=== PATIENT | female | born 1945 | race Caucasian/White ===

== ENCOUNTER → 2017-07-13 09:13 | Outpatient (CLI) | payer MEDICARE, MEDICAID, SELFPAY ==
--- NOTE | 2017-07-13 09:17 | CDU_ITS ---
Reason For Study: right carotid bruit Rt. Velocities/BP Lt. Velocities/BP Prox CCA 116/37.7 cm/sec. Prox CCA 110/33.0 cm/sec. Mid CCA 101/41.6 cm/sec. Mid CCA 84.9/27.5 cm/sec. Dist CCA 89.6/34.6 cm/sec. Dist CCA 96.6/33.8 cm/sec. Prox ICA 49.2/21.1 cm/sec. Prox ICA 95.1/36.1 cm/sec. Mid ICA 81.5/42.8 cm/sec. Mid ICA 95.1/41.6 cm/sec. Dist ICA 183/57.6 cm/sec. Dist ICA 150/64.7 cm/sec. Rt. ICA/CCA = 1.8. Lt. ICA/CCA = 1.8. Prox ECA 123/26.7 cm/sec. Prox ECA 132/29.1 cm/sec. Rt. Vert. 55.4/19.3 cm/sec. Lt. Vert. 58.9/26.7 cm/sec. Right Extracranial There is intimal thickening but no significant atherosclerotic plaque noted in the right common carotid artery. There is homogeneous, smooth atherosclerotic plaque noted in the right internal carotid artery. The right internal carotid artery is very tortuous. There is homogeneous, smooth atherosclerotic plaque noted in the right external carotid artery. Antegrade flow is noted in the right vertebral artery. Left Extracranial There is intimal thickening but no significant atherosclerotic plaque noted in the left common carotid artery. There is intimal thickening but no significant atherosclerotic plaque noted in the left internal carotid artery. The left internal carotid artery is very tortuous. There is intimal thickening but no significant atherosclerotic plaque noted in the left external carotid artery. Antegrade flow is noted in the left vertebral artery. Procedure Carotid Duplex 14333. The exam was diagnostic. Exam performed in department. Interpretation Summary Moderate (50-69%) stenosis right extracranial internal carotid. No significant atherosclerotic plaque or stenosis noted in the left internal carotid artery. Flow within the vertebral arteries is antegrade bilaterally. Ordering Physician: Octavia Nichols Performed By: Chilango Caballero RVT
== END ==
PROVIDERS: Family Provider Internal Medicine; PCP Internal Medicine; Visit Provider Internal Medicine
DX: R09.89 Other specified symptoms and signs involving the circulatory and respiratory systems (principal)
CPT/HCPCS: 93880

== ENCOUNTER → 2017-07-22 08:50 | Outpatient (CLI) | payer MEDICARE, MEDICAID, SELFPAY ==
--- NOTE | 2017-07-22 08:52 | ECHOD_ITS ---
Reason For Study: Murmur Procedure This was a 2D Doppler, Color Flow transthoracic echocardiogram. Exam performed in department. Left Ventricle Moderate assymetric septal hypertrophy. The estimated ejection fraction is 65 %. Stage 1 diastolic dysfunction. No regional wall motion abnormalities noted. Right Ventricle Normal size and thickness. Normal systolic function. Atria Normal left atrium. Normal right atrium. Normal atrial septum. Mitral Valve The mitral valve is structurally normal. No prolapse or stenosis seen. Tricuspid Valve Normal tricuspid valve. Trivial tricuspid valve insufficiency. Right ventricular systolic pressure estimated to be 35 mmHg. Aortic Valve Trisinus/trileaflet aortic valve. Mild diffuse aortic valve thickening. Mild aortic stenosis. Trivial aortic valve insufficiency. Pulmonic Valve Normal pulmonic valve. Great Vessels Normal aortic root. Normal arch. Normal inferior vena cava. Inferior vena cava collapse with sniff. Pericardium/Pleural No pericardial effusion. MMode/2D Measurements & Calculations LVIDd: 3.0 cm IVSd: 1.4 cm LVOT diam: 2.1 cm LVIDs: 1.8 cm LVPWd: 1.2 cm LVOT area: 3.6 cm2 RVDd: 3.2 cm FS: 40.8 % Ao root diam: 2.7 cm LAV(MOD-bp): 45.1 ml LA A4 area: 16.9 cm2 LA dimension: 4.2 cm LAV(MOD-bp) Indexed: 25.6 ml/m2 LAV(MOD-sp2): 43.8 ml LAV(MOD-sp4): 46.8 ml RA A4 area: 10.9 cm2 Doppler Measurements & Calculations MV E max ambrose: 57.8 cm/sec Lat Peak E' Ambrose: 6.4 cm/sec Med Peak E' Ambrose: 4.6 cm/sec MV A max ambrose: 89.1 cm/sec E/E' lat: 9.0 E/E' med: 12.4 MV E/A: 0.65 Ao V2 max: 211.9 cm/sec LV V1 max: 107.5 cm/sec SV(LVOT): 92.5 ml Ao max P.1 mmHg LV V1 max P.6 mmHg Ao V2 mean: 142.0 cm/sec LV V1 mean P.5 mmHg Ao mean P.0 mmHg LV V1 mean: 75.0 cm/sec Ao V2 VTI: 43.0 cm LV V1 VTI: 25.6 cm LEON(I,D): 2.1 cm2 LEON(V,D): 1.8 cm2 PA V2 max: 100.9 cm/sec TR max ambrose: 271.7 cm/sec TR max P.5 mmHg Interpretation Summary The estimated ejection fraction is 65 %. Stage 1 diastolic dysfunction. Right ventricular systolic pressure estimated to be 35 mmHg. Mild aortic stenosis. Compared to echo report dated 02/01/2012, no appreciable changes noted. Ordering Physician: Octavia Nichols Referring Physician: Octavia Nichols Performed By: Leslee Schaffer RDCS
== END ==
PROVIDERS: Family Provider Internal Medicine; PCP Internal Medicine; Visit Provider Internal Medicine
DX: R01.1 Cardiac murmur, unspecified (principal)
CPT/HCPCS: 93306

== ENCOUNTER 2017-07-28 10:48 | Emergency (ER) | payer MEDICARE, MEDICAID, SELFPAY ==
[2017-07-28 10:49] VITALS: BP 161/110; PULSE 64; RESP 22; TEMP 36.7; O2SAT 99; BMI 32.5
--- NOTE | 2017-07-28 11:08 | CT_ITS ---
STUDY: CT BRAIN WITHOUT CONTRAST REASON FOR EXAM: Female, 72 years old. Headaches. Choking episode. RADIATION DOSAGE (If Supplied By Facility): CTDIvol = ( 44.99 ) mGy, DLP = ( 779.24 ) mGycm TECHNIQUE: Transaxial CT imaging of the brain was performed without administration of intravenous contrast material. Individualized dose optimization techniques were used for this CT. COMPARISON: Comparison is made with prior study dated January 03, 2016. FINDINGS: Normal soft tissue structures. Normal calvarium. There is mild cerebral atrophy with widening of the extra-axial spaces and ventricular dilatation. There are areas of decreased attenuation within the white matter tracts of the supratentorial brain, consistent with microvascular disease changes. Normal basal ganglia and thalami. Normal brainstem. Normal cerebellum. There is no intracranial hemorrhage. There are no findings of an acute ischemic infarction. Normal visualized paranasal sinuses. CT/Brain/Head without Contrast IMPRESSION: Chronic involutional changes of the brain. Electronically Signed: Suleman Chan MD at 11:36 EDT Tel [phone], Service support ,
--- NOTE | 2017-07-28 11:09 | EKG12_ITS ---
Test Reason : NUMBNESS Blood Pressure : / mmHG Vent. Rate : 052 BPM Atrial Rate : 052 BPM P-R Int : 166 ms QRS Dur : 100 ms QT Int : 438 ms P-R-T Axes : 030 -09 028 degrees QTc Int : 407 ms Sinus bradycardia Otherwise normal ECG Confirmed by CONCEPCION TINOCO ([id number]), senior editor RL MELO ([id number]) on 08/02/2017 2:06:31 PM Referred By: Octavia Nichols Confirmed By:CONCEPCION TINOCO
[2017-07-28 11:11] VITALS: BP 165/87; PULSE 67; RESP 25; O2SAT 95
[2017-07-28 11:16] LABS: Absolute Lymphocyte Count 1.03 X10^3/ul (0.83-4.51); Absolute Neutrophil Count 3.9 X10^3/uL (2.0-7.7); Basophil# 0.01 X10^3/uL; Basophil% 0.2 % (0-1); Bedside Glucose 109 mg/dL (70-110); Eosinophil# 0.18 X10^3/uL; Eosinophils% 3.2 % (0-5); Hemoglobin 12.3 g/dl (12.0-15.0); Lymphocyte # 1.03 X10^3/ul (4.0); Lymphocyte % 18.4 % (19-41); Mean Corp Hgb Conc 31.5 g/gl (32-36); Mean Corpuscular Hgb 25.1 pg (27.0-32.0); Mean Corpuscular Volume 79.6 fL (81-99); Mean Platelet Vol. 9.3 fl (6.2-12.0); Monocyte# 0.46 X10^3/uL; Monocyte% 8.2 % (0-10); Neutrophil % 69.8 % (47-70); POSITIVE COUNT NO; POSITIVE DIFFERENTIAL NO; POSITIVE MORPHOLOGY NO; Platelet Count 301 K/mm3 (150-450); RBC Distribution Width CV 14.2 % (11.6-14.6); RBC Distribution Width SD 40.7 fl (35.1-43.9); White Blood Count 5.6 K/mm3 (4.4-11.0)
[2017-07-28 11:24] LABS: Anion Gap 8 (5-15); BUN 19 mg/dL (7-18); BUN/Creat Ratio 32.6 RATIO (10-20); Calcium,Total 9.3 mg/dL (8.5-10.1); Chloride 103 mmol/L (98-107); Creatinine, Serum 0.58 mg/dL (0.55-1.02); EST Glomerular Filtration Rate 108 mL/min (>60); Est Glom Filt Rate - Afr Amer 131 mL/min (>60); Estimated Creatinine Clearance 38.94 ml/min; Glucose 106 mg/dL (74-106); Potassium 4.2 mmol/L (3.5-5.1); Sodium Level 141 mmol/L (136-145)
[2017-07-28] MEDS: Acetaminophen 500 MG Tablet 1000 MG PO (11:44)
[2017-07-28] MEDS: Ondansetron ODT 4 MG Tablet PO (11:44)
[2017-07-28] MEDS: 0.9% Normal Saline 1,000 ML 150 ML IV (11:45)
[2017-07-28 11:54] LABS: Bacteria 0 SEEN /hpf (None Seen); Mucous, Urine 0 SEEN /hpf (<or=2+); Red Blood Cells-Urine 0 SEEN /hpf (0-5)
[2017-07-28 11:55] LABS: Color, Urine Yellow (Yellow); Glucose, Dipstick Normal (Normal); Ketone-Dipstick Negative (Negative); Leukocyte Esterase-Dipstick 25 /ul (Negative); Nitrite-Dipstick Negative (Negative); Occult Blood-Urine Negative /ul (Negative); Protein-Dipstick Negative (Negative); Urine Bilirubin Dipstick Negative (Negative); Urine Clarity Clear (Clear); Urine Urobilinogen Normal (Normal)
[2017-07-28 12:01] VITALS: BP 154/82; PULSE 77; RESP 15; O2SAT 97
[2017-07-28 12:02] LABS: Squamous Epithelial Cells - UA 0-5 SEEN /hpf (5-10); White Blood Cells 0-5 SEEN /hpf (0-5)
--- NOTE | 2017-07-28 12:14 | ED.VISSUMM ---
- ER Visit Summary Date of Service: 07/28/17 Chief Complaint: Problems with vision History of Present Illness: The patient is a [address] Nichols and Dr. Grimm. Patient reports that she was urinating today when she began choking. She had her dentures and and when she removed these she vomited multiple times. She reports that immediately thereafter she had vision from her right eye that appeared like she was looking through a crystal. This lasted approximately 30-45 minutes. She has a headache that began the same time as well. As a pressure on the right side of her forehead is 7 out of 10 severity. She denies any numbness, weakness, aphasia, slurred speech, vertigo, or other complaints. Physical Examination: Vitals: Stable. Afebrile. Neurological: Cranial nerves II through XII are intact. 5 out of 5 strength throughout. Normal sensation to light touch throughout. Normal gnzevm-wtgn-yfvthg and jwnq-xaah-[id number] bilaterally. Normal gait. General: A&O x 3. NAD. Cardiovascular exam: Regular rate and rhythm, no murmur, rub or gallop. Respiratory exam: Clear to auscultation bilaterally. No wheezes or stridor. Abdominal exam: Soft, nontender, nondistended, normal bowel sounds. No peritoneal signs. Extremity: No clubbing, cyanosis, or edema. Test Results: CT brain shows chronic changes. EKG sinus bradycardia 52 with no acute changes. Is unchanged from 2016. UA is negative. Chem-7 is more for BUN of 19. CBC is marked for lymphocytes of 18. Emergency Department Course and Treatment: Patient was treated Zofran p.o. She is resting comfortably. Treatment Plan: Patient was discussed with Dr. Oleary. He has that should she be sent over to the [place] [facility]. She will be discharged to there. Disposition: To home in improved and stable condition. Impression: 1. Transient visual changes. This note was generated with [employer] dictation software. It may contain incorrect words, spelling, and punctuation that were not noted in review of the chart prior to signing ED Disposition - Plan for ED Patient: Disposition: Home or Assisted Living Chief Complaint: Numb/Ting Instructions: ED Blurred Vision Referrals: Mark Oleary MD [STAFF PHYSICIAN] - 07/28/17
[2017-07-28 12:30] VITALS: BP 157/82; PULSE 65; RESP 14; O2SAT 95
== END 2017-07-28 12:31 | disposition home or self-care (01) ==
PROVIDERS: Emergency Provider Emergency Medicine; Family Provider Internal Medicine; PCP Internal Medicine
DX: H53.8 Other visual disturbances (principal); R51 Headache; R00.1 Bradycardia, unspecified; E03.9 Hypothyroidism, unspecified; Z79.899 Other long term (current) drug therapy; F41.9 Anxiety disorder, unspecified; F31.9 Bipolar disorder, unspecified; Z79.82 Long term (current) use of aspirin
CPT/HCPCS: 70450; 80048; 81001; 82962; 85025; 93005; 96360; 99285; J7030; A4216

== ENCOUNTER → 2017-08-27 14:50 | Outpatient (CLI) | payer MEDICARE, MEDICAID, SELFPAY ==
--- NOTE | 2017-08-27 14:44 | RAD_ITS ---
XR Chest 2 Views INDICATION: cough COMPARISON: None FINDINGS: Heart size and pulmonary vascularity are within normal limits. The lungs are clear without evidence of airspace consolidation or pleural effusion. The osseous structures are grossly unremarkable. RAD/Chest PA and Lateral IMPRESSION: No radiographic evidence of acute intrathoracic disease. at 1547 Reported and signed by: Katie Hopkins MD Electronically Signed: Katie Hopkins MD at 15:45 EDT Tel , Service support ,
== END ==
PROVIDERS: Family Provider Internal Medicine; PCP Internal Medicine; Visit Provider Internal Medicine
DX: R05 Cough (principal)
CPT/HCPCS: 71046

== ENCOUNTER 2017-11-21 11:09 | Emergency (ER) | payer MEDICARE, MEDICAID, SELFPAY ==
[2017-11-21 11:10] VITALS: BP 159/84; PULSE 82; RESP 15; TEMP 36.3; O2SAT 95; BMI 31.0
[2017-11-21 11:20] VITALS: BP 142/79; PULSE 78; RESP 26; O2SAT 95
[2017-11-21 11:21] VITALS: O2SAT 94
--- NOTE | 2017-11-21 11:21 | CT_ITS ---
STUDY: CT BRAIN WITHOUT CONTRAST REASON FOR EXAM: Female, 72 years old. Frequent falls. Dizzy. RADIATION DOSAGE (If Supplied By Facility): CTDIvol = ( 44.99 ) mGy, DLP = ( 745.49 ) mGycm TECHNIQUE: Transaxial CT imaging of the brain was performed without administration of intravenous contrast material. Individualized dose optimization techniques were used for this CT. COMPARISON: July 28, 2017 FINDINGS: Normal soft tissue structures. Normal calvarium. There is mild cerebral atrophy with widening of the extra-axial spaces and ventricular dilatation. There are areas of decreased attenuation within the white matter tracts of the supratentorial brain, consistent with microvascular disease changes. Normal basal ganglia and thalami. Normal brainstem. Normal cerebellum. There is no intracranial hemorrhage. There are no findings of an acute ischemic infarction. Normal visualized paranasal sinuses. CT/Brain/Head without Contrast IMPRESSION: Chronic involutional changes of the brain. Small vessel ischemia. No acute intracranial process. Electronically Signed: Trish Moser MD at 11:59 EDT Tel , Service support ,
--- NOTE | 2017-11-21 11:22 | CT_ITS ---
STUDY: CT CERVICAL SPINE WITHOUT CONTRAST REASON FOR EXAM: Female, 72 years old. Frequent falls. RADIATION DOSAGE (If Supplied By Facility): CTDIvol = ( 23.69 ) mGy, DLP = ( 456.98 ) mGycm TECHNIQUE: High resolution transaxial imaging was performed without contrast material. Sagittal and coronal images were reconstructed. Individualized dose optimization techniques were used for this CT. COMPARISON: None FINDINGS: Normal craniovertebral junction. There are degenerative changes of the anterior atlantoaxial articulation. Normal odontoid process. Normal cervical lordosis. The vertebral body heights are preserved. There is multilevel degenerative disc disease and facet hypertrophy. C2-3: There is mild anterospondylolisthesis of C2 on C3 by 1.7 mm. There is degenerative disc disease and facet hypertrophy causing narrowing of the left intervertebral neuroforamina. C3-4: There is degenerative disc disease. Normal central canal and intervertebral neuroforamina. C4-5: There is degenerative disc disease. Normal central canal and intervertebral neuroforamina. C5-6: There is a posterior disc osteophyte and facet hypertrophy causing stenosis of the central canal and bilateral narrowing of the intervertebral neuroforamina. C6-7: There is degenerative disc disease. Normal central canal and intervertebral neuroforamina. C7-T1: Normal endplates. Normal disc height and morphology. Normal central canal and intervertebral neuroforamina. There are surgical clips within the anterior neck. CT/Spine Cervical without Contras IMPRESSION: Multilevel degenerative changes, as described above. Electronically Signed: Trish Moser MD at 11:57 EDT Tel , Service support ,
--- NOTE | 2017-11-21 11:25 | ED.VISSUMM ---
- ER Visit Summary Date of Service: 11/21/17 Chief Complaint: Fall History of Present Illness: The patient is a 72 F who states that she suffered a fall on November 16. She fell backwards. She had neck pain since that time that was improving with ibuprofen. She was riding in a car last night states the jarring motion from the car has made her neck pain worse. She also had another fall today where she fell forward. She has an abrasion on her left hand from this fall. He reports problems with her balance. He stated it is almost as if her mind knows where she wants to move to but her body does not keep up with the same speed. Patient denies any syncopal episodes or palpitations that led to falls. Physical Examination: Vital signs significant for blood pressure 159/84, otherwise unremarkable. Patient sitting upright in bed no acute distress. Head neck examination reveals no obvious external sign of trauma. She has cervical paraspinal tenderness diffusely. Heart is regular rate and rhythm. Lung sounds are clear. Abdomen is soft nontender. Extremity examination reveals an abrasion to the palm the left hand. It is approximate 1 cm circular lesion. There is no bony tenderness to palpation. Lower external examination reveals no focal tenderness or abrasions. Neuro exam reveals no focal deficits. Test Results: CT head is unremarkable with no acute process. CT C-spine shows multilevel degenerative changes. Emergency Department Course and Treatment: On repeat examination patient is resting comfortable. Hand wound will be cleansed and dressed. She is encouraged to continue ibuprofen and warm compresses to help with her spasm. Treatment Plan: [] Disposition: Discharge Impression: Fall with neck strain This note was generated with [employer] dictation software. It may contain incorrect words, spelling, and punctuation that were not noted in review of the chart prior to signing ED Disposition - Plan for ED Patient: Chief Complaint: Fall Referrals: Octavia Nichols DO [Primary Care Provider] -
--- NOTE | 2017-11-21 12:22 | ED.DEP ---
ED Disposition - Plan for ED Patient: Disposition: Home or Assisted Living Chief Complaint: Fall Instructions: ED Sprain Strain Neck Referrals: Octavia Nichols DO [Primary Care Provider] - 1 Week
[2017-11-21 12:43] VITALS: BP 129/64; PULSE 82; RESP 16; O2SAT 91
[2017-11-21 12:50] LABS: Mucous, Urine 0 SEEN /hpf (<or=2+); Red Blood Cells-Urine 0 SEEN /hpf (0-5)
[2017-11-21 13:14] LABS: Color, Urine Yellow (Yellow); Glucose, Dipstick Normal (Normal); Ketone-Dipstick Negative (Negative); Leukocyte Esterase-Dipstick 500 /ul (Negative); Nitrite-Dipstick Negative (Negative); Occult Blood-Urine Negative /ul (Negative); Protein-Dipstick 15 mg/dl (Negative); Urine Bilirubin Dipstick Negative (Negative); Urine Clarity Clear (Clear); Urine Urobilinogen Normal (Normal); Urine pH 6.5 (5.0 - 8.0)
[2017-11-21 13:20] LABS: Bacteria RARE /hpf (None Seen); Squamous Epithelial Cells - UA 0-5 SEEN /hpf (5-10); White Blood Cells 0-5 SEEN /hpf (0-5)
== END 2017-11-21 13:24 | disposition home or self-care (01) ==
PROVIDERS: Emergency Provider Emergency Medicine; Family Provider Internal Medicine; PCP Internal Medicine
DX: S16.1XXA Strain of muscle, fascia and tendon at neck level, initial encounter (principal); W19.XXXA Unspecified fall, initial encounter; Y93.9 Activity, unspecified; Y92.89 Other specified places as the place of occurrence of the external cause; Y99.9 Unspecified external cause status; E11.9 Type 2 diabetes mellitus without complications; I10 Essential (primary) hypertension; E78.00 Pure hypercholesterolemia, unspecified; K21.9 Gastro-esophageal reflux disease without esophagitis; F41.9 Anxiety disorder, unspecified; F32.9 Major depressive disorder, single episode, unspecified; Z79.899 Other long term (current) drug therapy
CPT/HCPCS: 70450; 72125; 81001; 87086; 87088; 99282

== ENCOUNTER → 2017-12-10 13:31 | Outpatient (CLI) | payer MEDICARE, MEDICAID, SELFPAY ==
--- NOTE | 2017-12-10 13:37 | BI_ITS ---
MAMMOGRAPHY - BILATERAL SCREENING REASON FOR EXAM: Female, 72 years old. Routine annual screening examination. Right breast lumps PERTINENT HISTORY: Non-contributory. TECHNIQUE: Digital examination. Mediolateral oblique (MLO) and craniocaudad (CC) views of both breasts were obtained along with 3D tomosynthesis. CAD: CAD was performed on this study. COMPARISON: 01/05/2017 FINDINGS: Breast Composition: There are scattered areas of fibroglandular density. There are no dominant masses or suspicious calcifications. Specifically, there are no nodules identified to correspond with patient's palpable lumps. No other significant abnormalities are identified. BI/DIAG MAMM W/CAD, BILAT IMPRESSION: Negative screening mammogram. ASSESSMENT CATEGORY: BIRADS Category 2: Benign. A letter regarding these results will be sent to the patient by the facility within 30 days. FOLLOW UP RECOMMENDATION: Yearly follow up mammogram recommended. (A) Approximately 10% of breast cancers are not detected by mammography. A normal mammogram should not delay biopsy of a clinically suspicious abnormality. [id number] Electronically Signed: Kamar Lovelace MD at 14:52 EDT , Service support ,
== END ==
PROVIDERS: Family Provider Internal Medicine; PCP Internal Medicine; Visit Provider Nurse Practitioner Gerontology
DX: N63.11 Unspecified lump in the right breast, upper outer quadrant (principal); R92.8 Other abnormal and inconclusive findings on diagnostic imaging of breast
CPT/HCPCS: 77062; 77066; 97035; 97140; G0279

== ENCOUNTER → 2018-01-12 10:46 | Outpatient (CLI) | payer MEDICARE, MEDICAID, SELFPAY | PROVIDERS: Family Provider Internal Medicine; PCP Internal Medicine; Visit Provider Nurse Practitioner | DX: M25.531 Pain in right wrist (principal) | CPT/HCPCS: 73110 ==

== ENCOUNTER 2018-01-13 20:13 | Emergency (ER) | payer MEDICARE, MEDICAID, SELFPAY ==
[2018-01-13 20:15] VITALS: BP 128/77; PULSE 85; RESP 18; TEMP 36.8; O2SAT 96; BMI 31.8
--- NOTE | 2018-01-13 21:29 | ED.VISSUMM ---
- ER Visit Summary Date of Service: 01/13/18 Chief Complaint: [Pain right wrist] History of Present Illness: The patient is a 73 F [presents the emergency department with complaint of pain in the right hand and wrist. Patient states that discomforts been there for several days. Patient states that she had a fall about 4 days ago when she fell into the kitchen counter injuring her left arm. Patient is not sure if she hurt her hand at that time because her pain in her hand and wrist did not start until several days later. Patient is right-hand dominant. Patient was seen at urgent care 2 days ago and had x-rays of her right hand and wrist and received a phone call stating that she had a fracture in her wrist and follow-up with orthopedics. Patient states that her pain is currently a 5 out of 10. Physical Examination: [HEENT-PERRLA, EOMI. Cranial nerves II through XII grossly intact. TMs clear. Mucous membranes moist. No adenopathy. Cardiovascular-regular rate and rhythm without murmur or ectopy Lungs-clear to auscultation, chest wall stable without crepitus or subcu emphysema Abdomen-normoactive bowel sounds, soft, nontender, no rebound or rigidity, no peritoneal signs. Extremities-intact ?4, normal range of motion, normal pulses. Patient does have some ecchymosis that appears old over the left humerus without any bony deformity or bony tenderness. Right hand and wrist-patient has some diffuse tenderness over the volar aspect of the wrist. There is no deformity noted. No ecchymosis or bruising noted no significant soft tissue swelling noted. Patient nervously intact distally with normal range of motion of all digits. Test Results: [X-rays of the right wrist obtained was read by radiology as no acute fractures and only some degenerative changes noted.] Emergency Department Course and Treatment: [Patient was given a right wrist splint. Patient denies anything for pain here.] Treatment Plan: [Patient to follow-up with orthopedics and continue to wear splint for comfort. Patient will take Tylenol for discomfort.] Disposition: [Discharged home in stable condition] Impression: [Right wrist sprain] This note was generated with Smart Lunches[employer] software. It may contain incorrect words, spelling, and punctuation that were not noted in review of the chart prior to signing ED Disposition - Plan for ED Patient: Chief Complaint: Upper Extremity Injury Referrals: Octavia Nichols DO [Primary Care Provider] -
--- NOTE | 2018-01-13 21:32 | ED.DEP ---
ED Disposition - Plan for ED Patient: Chief Complaint: Upper Extremity Injury Instructions: ED Sprain Wrist Referrals: Octavia Nichols DO [Primary Care Provider] - Jeronimo Foreman MD [STAFF PHYSICIAN] - 3-5 Days
--- NOTE | 2018-01-13 21:42 | ED.VISSUMM ---
- ER Visit Summary Date of Service: 01/13/18 Chief Complaint: [Addendum to initial dictation] History of Present Illness: The patient is a 73 F [presented with complaint of right wrist pain. Patient had x-rays yesterday that were read by radiology as possible triquetrum fracture that is nondisplaced. The x-rays performed today were interpreted by separate radiologist and did not feel there was any fractures. Given that patient has not had any significant trauma that she can recall I feel is less likely the patient has a fracture. Patient will follow-up with orthopedics and will be given a wrist splint] Physical Examination: [] Test Results: [] Emergency Department Course and Treatment: [] Treatment Plan: [Follow-up with orthopedics in 3-5 days. Wrist splint. Patient may need further imaging to completely and definitively diagnose possible fracture such as possible CT of wrist or MRI as an outpatient if it is felt necessary by orthopedics.] Disposition: [Discharged home in stable condition] Impression: [Right wrist sprain-possible triquetral fracture] This note was generated with [employer] dictation software. It may contain incorrect words, spelling, and punctuation that were not noted in review of the chart prior to signing ED Disposition - Plan for ED Patient: Chief Complaint: Upper Extremity Injury Instructions: ED Sprain Wrist Referrals: Octavia Nichols DO [Primary Care Provider] - Jeronimo Foreman MD [STAFF PHYSICIAN] - 3-5 Days
== END 2018-01-13 21:52 | disposition home or self-care (01) ==
PROVIDERS: Emergency Provider Emergency Medicine; Family Provider Internal Medicine; PCP Internal Medicine
DX: S63.501A Unspecified sprain of right wrist, initial encounter (principal); W18.30XA Fall on same level, unspecified, initial encounter; Y93.9 Activity, unspecified; Y92.000 Kitchen of unspecified non-institutional (private) residence as the place of occurrence of the external cause; Y99.9 Unspecified external cause status; E03.9 Hypothyroidism, unspecified; F39 Unspecified mood [affective] disorder
CPT/HCPCS: 73110; 99283

== ENCOUNTER 2018-03-03 09:53 | Day surgery (SDC) | payer MEDICARE, SELFPAY ==
[2018-03-03] VITALS (8 sets, daily range): BP systolic 88–128; BP diastolic 57–86; PULSE 62–94; RESP 16; TEMP 36.5–37.1; O2SAT 91–98; BMI 29.9
[2018-03-03 10:26] LABS: Bedside Glucose 88 mg/dL (70-110)
--- NOTE | 2018-03-03 10:55 | PCM.HP.STD ---
Problem List (1) Personal history of colonic polyps Status: Acute History of Present Illness Date of Admission: 03/03/18 The patient is a 73 year old F who notes that she has had a personal history of colon polyps. Most recent colonoscopy was approximately 3 years ago. At that point she had a polyp removed. My request she returns now for planned surveillance colonoscopy. She presents via our open access program. She denies chest pain or shortness of breath cardiac or pulmonary issues. No abdominal pain. No bright red blood per rectum or melena. No unexpected weight loss. Past Medical History Past Medical History (Chronic Problems): Chronic Problems History of small bowel obstruction (Chronic) Hypothyroid (Chronic) Epigastric pain (Chronic) Dyslipidemia (Chronic) Type II diabetes mellitus (Chronic) Benign essential hypertension (Chronic) Allergies codeine Adverse Reaction (Mild, Verified 03/01/18 14:53) Upset Stomach hydroxyzine HCl [From Vistaril] Adverse Reaction (Mild, Verified 03/01/18 14:53) Rash hydroxyzine pamoate [From Vistaril] Adverse Reaction (Mild, Verified 03/01/18 14:53) Rash Home Medications: Ambulatory Orders Medication Instructions Recorded Calcium Phosphate Trib/Vit D3 2 each PO DAILY 01/24/16 [Citracal + D3 Gummies] Lamotrigine [Lamictal] 150 mg PO QHS 01/24/16 Levothyroxine [Synthroid] 150 mcg PO DAILY 01/24/16 Sertraline HCl [Zoloft] 100 mg PO DAILY 01/24/16 busPIRone [Buspar] 10 mg PO DAILY 01/24/16 busPIRone [Buspar] 20 mg PO QHS 01/24/16 Cholecalciferol (Vitamin D3) 1,000 unit PO DAILY 01/08/17 [Vitamin D3] Olanzapine [Zyprexa] 2.5 mg PO DAILY 01/08/17 Aspirin [Aspirin EC] 81 mg PO DAILY 07/28/17 L.acidoph,Paracasei, B.lactis 1 each PO DAILY 03/01/18 [Probiotic] Surgical History: herniorrhaphy, total hip arthroplasty Smoking Status: Never smoker Tobacco Use: Non-smoker Review of Systems Constitutional: Denies: Anorexia HEENT: Denies: Difficulty Swallowing Cardiovascular: Denies: Chest Pain Respiratory: Denies: Cough Gastrointestinal: Denies: Abdominal Pain, Hematochezia, Melena Neurological: Denies: Balance problems VTE Information - Inpt Only VTE Present on Admission: No Patient Problems: Active and Suspected Problems Personal history of colonic polyps (Acute) - Physical Exam General: Alert, Oriented x3, Cooperative, No apparent distress HEENT: Atraumatic Oral: Moist Mucosa Neck: Supple Lungs: Clear to auscultation Cardiovascular: Regular rate, Regular Rhythm Abdomen: Bowel Sounds Present, Soft, Non Tender, Non-Distended Extremities: No Calf Tenderness Musculoskeletal: No Tenderness to Palpation of Joints or Extremities Neurological: Cranial nerves II-XII grossly intact Vital Signs Temp Pulse Resp BP Pulse Ox 98.8 F 71 16 123/75 H 97 03/03/18 10:10 03/03/18 10:10 03/03/18 10:10 03/03/18 10:10 03/03/18 10:10 Oxygen Delivery Method Room Air Weight: 164 lb 0.383 oz Body Mass Index (BMI) 29.9 POC Glucose 03/03/18 10:17 POC Glucose 88 Assessment/Plan All Active Problems Personal history of colonic polyps (Acute) I am recommending the patient a colonoscopy with possible biopsy or polypectomy is indicated. She is aware of the technique, benefits, risks and alternatives. She has had an opportunity to ask and have questions answered. We will proceed at her discretion. Cruz Montero M.D., F.A.C.S.
--- NOTE | 2018-03-03 11:34 | OP.ENDO_ITS ---
Patient Name: Lilia Mckay Procedure Date: 03/03/2018 11:00 AM Date of : 1945 Age: 73 Procedure: Colonoscopy Indications: High risk colon cancer surveillance: Personal history of colonic polyps Providers: Cruz Montero MD Referring MD: Cruz Montero MD Medicines: Midazolam 3.5 mg IV, Meperidine 100 mg IV Patient Profile: Last Colonoscopy: 3 years ago. Complications: No immediate complications. Procedure: Pre-Anesthesia Assessment: - Prior to the procedure, a History and Physical was performed, and patient medications and allergies were reviewed. The patient's tolerance of previous anesthesia was also reviewed. The risks and benefits of the procedure and the sedation options and risks were discussed with the patient. All questions were answered, and informed consent was obtained. Prior Anticoagulants: The patient has taken no previous anticoagulant or antiplatelet agents. ASA Grade Assessment: II - A patient with mild systemic disease. After reviewing the risks and benefits, the patient was deemed in satisfactory condition to undergo the procedure. After I obtained informed consent, the scope was passed under direct vision. Throughout the procedure, the patient's blood pressure, pulse, and oxygen saturations were monitored continuously. The colonoscope was introduced through the anus and advanced to the cecum, identified by appendiceal orifice and ileocecal valve. The colonoscopy was somewhat difficult due to a tortuous colon. The patient tolerated the procedure well. The quality of the bowel preparation was adequate to identify polyps. The ileocecal valve was photographed. Moderate Sedation: Moderate (conscious) sedation was personally administered by the endoscopist. The following parameters were monitored: oxygen saturation, heart rate, blood pressure, and response to care. Total physician intraservice time was 15 minutes. Scope In: 11:09:15 AM Scope Withdrawal Time 0 hours 8 minutes 44 seconds Scope Out: 11:27:52 AM Total Procedure Duration Time 0 hours 18 minutes 37 seconds Findings: Hemorrhoids were found on perianal exam. Lax anal tone Multiple diverticula were found in the sigmoid colon and descending colon. The colon (entire examined portion) was moderately tortuous. The exam was otherwise without abnormality. Impression: - Hemorrhoids found on perianal exam. - Diverticulosis in the sigmoid colon and in the descending colon. - Tortuous colon. - The examination was otherwise normal. - No specimens collected. Recommendation: - Discharge patient to home. - Resume regular diet. - Continue present medications. - Repeat colonoscopy in 5 years for surveillance. Procedure Code(s): --- Professional --- 17016, Colonoscopy, flexible; diagnostic, including collection of specimen(s) by brushing or washing, when performed (separate procedure) 24328, 59, Moderate sedation services provided by the same physician or other qualified health lpn care manager performing the diagnostic or therapeutic service that the sedation supports, requiring the presence of an independent trained observer to assist in the monitoring of the patient's level of consciousness and physiological status; initial 15 minutes of intraservice time, patient age 5 years or older Diagnosis Code(s): --- Professional --- Z86.010, Personal history of colonic polyps K64.9, Unspecified hemorrhoids K57.30, Diverticulosis of large intestine without perforation or abscess without bleeding Q43.8, Other specified congenital malformations of intestine CPT copyright 2017 [employer]. All rights reserved. The codes documented in this report are preliminary and upon wood model maker review may be revised to meet current compliance requirements. Cruz Montero MD 03/03/2018 11:33:51 AM This report has been signed electronically. Number of Addenda: 0 Note Initiated On: 03/03/2018 11:00 AM
== END 2018-03-03 12:28 | disposition home or self-care (01) ==
LOC: EN 09:54 → AC 09:55
PROVIDERS: Family Provider Internal Medicine; PCP Internal Medicine; Visit Provider Surgery
PROC: 0DJD8ZZ Inspection of Lower Intestinal Tract, Via Natural or Artificial Opening Endoscopic (ICD-10-PCS; CPT 45378; principal; 2018-03-03 10:55)
DX: Z12.11 Encounter for screening for malignant neoplasm of colon (principal); K57.30 Diverticulosis of large intestine without perforation or abscess without bleeding; Q43.8 Other specified congenital malformations of intestine; K64.9 Unspecified hemorrhoids; Z86.010 Personal history of colon polyps; E03.9 Hypothyroidism, unspecified; E78.5 Hyperlipidemia, unspecified; E11.9 Type 2 diabetes mellitus without complications; I10 Essential (primary) hypertension
CPT/HCPCS: G0105; 82962; 99152; 99153; J7120

== ENCOUNTER 2018-03-16 08:00 | Outpatient (RCR) | payer MEDICARE, MEDICAID, SELFPAY ==
--- NOTE | 2017-11-25 17:04 | HP.PTEVAL_ITS ---
Patient's Visit Information JOSELUIS HUI is a 72 year old F referred to Physical Therapy by Octavia Nichols with a diagnosis of Cervical neck pain, cervical muscle spasm. Date of Evaluation: 11/25/17 Physical Therapist: Samy Johnson PT, - Visit Plan Frequency: 2x /Week Duration: 4 Weeks Plan: Light intensity soft tissue mobilization, sub occipital release, and manual traction only. Postural strengthening and stretching to improve cervical ROM and flexibility. Thermal US to improve tissue extensibility. - Subjective Subjective: pt is a 72 y/o female referred neck pain. She reporting falling backwards on 11/16/17 (9 days ago) and hit the back of her back which caused her pain. She initially reported experiencing B UT and shoulder pain but is now only reporting a dull ache in her suboccipital and midline cervical spine. Her symptoms will shift side to side. She fell again 11/21/17 when she tripped over something but this time she fell forward. This is the first time she has fallen in a while. Aggrevating factors: riding in car, looking to the L. Easing factors: heat, medication. 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 Denies n/t in UEs , had some dizziness and some vision changes initially but now resolved. - Pain Neck Pain Intensity (Out of 10): 5 Pain Intensity Range: 3, 10 - Objective OBSERVATION: Significant increase in thoracic kyphosis, forward head, abrasions from fall on the L hand and R elbow. PALPATION: TTP suboccipitals L>R. High tone B UT. ROM: Cervical flexion 25, extension 30, L rotation* 35, R rotation 43, R LF 30, L LF 28. B shoulder ROM WFL. NEURO: Dermatomes intact, myotomes intact, B C5/6/7 DTR 2+. MMT: 4/5 gtrossly except 4-/5 shoulder - Special Tests Sharp Lakia: Negative Vertebral Artery Test: Negative Alar Ligament Test: Negative Comments: Tectorial membrane (-). - Goals Goal 1:: Pt will improve B cervical rotation to 45 degrees to improve tolerance with looking over her shoulder. Goal Time Frame: 4-6 Weeks Goal 2:: Pt will report ability to resume sewing without limitation to allow her to return to her hobbies. Goal Time Frame: 4-6 Weeks Goal 3:: Pt will report a score of 5 points or better on the neck FATEMEH to show improved function and QOL. 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 Goal Time Frame: 4-6 Weeks Goal 5:: Pt will be independent with HEP to sustain gains made in the clinic. Goal Time Frame: 4-6 Weeks - Rehabilitation Potential Physical Therapy Diagnosis: Pt is a 72 y/o female referred for cervical neck pain and muscle spasm. This arised from a fall backwards 9 days ago when she hit her head. Her symptoms are now localized to the L>R subocciptal and cervical paraspinals. This is worsened with L rotation and sustained postures. Her symptoms are consistent with a WAD type injury. She has activity restrctions that include difficulty looking over her shoulder and looking down for a prolonged period of time. This affects her participation with hobbies such as sewing. Pt will benefit from skilled PT to address her mentioned impairments to maximize function. Rehabilitation Potential: Good - Anticipated Interventions Patient/Client Instruction: Educate patient on: Condition, Plan of Care For the Purpose of:: To decrease pain, To increase ROM, To improve muscle performance and motor function, To increase tolerance to activity/condition/ position, To improve ability of physical actions for home/community/work/leisure , To improve gait and locomotor functions, To improve health of tissue, To decrease soft tissue restriction, To increase flexibility/ROM, To reduce risk of recurrence, To improve self management Therapeutic Exercise to Include: Strength training, Endurance training, Body mechanics, Postural training, Flexibilty training, Active ROM For the Purpose of:: To decrease pain, To increase ROM, To improve muscle performance and motor function, To increase tolerance to activity/condition/ position, To improve ability of physical actions for home/community/work/leisure , To improve health of tissue, To decrease soft tissue restriction, To increase flexibility/ROM, To reduce risk of recurrence, To improve self management Manual Therapy Techniques to Include: Soft tissue mobilization For the Purpose of:: To decrease pain, To increase ROM, To improve muscle performance and motor function, To increase tolerance to activity/condition/ position, To improve ability of physical actions for home/community/work/leisure , To decrease soft tissue restriction, To increase flexibility/ROM Cryotherapy (ice pack, ice massage): Yes Thermo therapy (hot pack): Yes Ultrasound (thermal/non thermal): Yes For the Purpose of:: To decrease pain, To increase ROM, To improve muscle performance and motor function, To increase tolerance to activity/condition/ position, To improve ability of physical actions for home/community/work/leisure , To decrease soft tissue restriction, To increase flexibility/ROM Thank you for the opportunity to evaluate your patient. For Medicare and Medicare HMO plans, please review the plan of care and approve it. It will need to be FAXED BACK to us at [phone] for Medicare purposes. Please let me know if there are questions or concerns regarding this plan of care. Physician Signature: Date:
--- NOTE | 2017-12-24 11:06 | HP.PTREVAL ---
Octavia Nichols, It has been my pleasure to treat JOSELUIS HUI over the last 9 visits for Cervical neck pain, cervical muscle spasm. Please see the progress note below for an update on the physical therapy plan of care! Subjective: PT is helping improved with ablity to perform ADL'S and cervical rotation. Patient sleeping better..denies paratthesia/tingling. Ocassionally PERALTA. Objective/Function: POSTURE:FOWARD HEAD POSTURE,ROUNDED SHOULDERS. NEURO: DENIES PARATHESIA/TINGLING ,REFLEXES C5-6-7 /. MMT:BUE 4/5,4-/5 SHOULDER. CERVICAL ROM: flexion min loss pain ,left cervical rotation/lateral flexion pain left upper c-spine Plan Plan: cont with current PT interventions 2week for 3 weeks Goals Goal 1:: Pt will improve B cervical rotation to 45 degrees to improve tolerance with looking over her shoulder. Goal Time Frame: 4-6 Weeks Goal 2:: Pt will report ability to resume sewing without limitation to allow her to return to her hobbies. Goal Time Frame: 4-6 Weeks Goal 3:: Pt will report a score of 5 points or better on the neck FATEMEH to show improved function and QOL. 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 Goal Time Frame: 4-6 Weeks Goal 5:: Pt will be independent with HEP to sustain gains made in the clinic. Goal Time Frame: 4-6 Weeks Anticipated Interventions Patient/Client Instruction: Educate patient on: Condition, Plan of Care For the Purpose of:: To decrease pain, To increase ROM, To improve muscle performance and motor function, To increase tolerance to activity/condition/position, To improve ability of physical actions for home/community/work/leisure, To improve gait and locomotor functions, To improve health of tissue, To decrease soft tissue restriction, To increase flexibility/ROM, To reduce risk of recurrence, To improve self management Therapeutic Exercise to Include: Strength training, Endurance training, Body mechanics, Postural training, Flexibilty training, Active ROM For the Purpose of:: To decrease pain, To increase ROM, To improve muscle performance and motor function, To increase tolerance to activity/condition/position, To improve ability of physical actions for home/community/work/leisure, To improve health of tissue, To decrease soft tissue restriction, To increase flexibility/ROM, To reduce risk of recurrence, To improve self management Manual Therapy Techniques to Include: Soft tissue mobilization For the Purpose of:: To decrease pain, To increase ROM, To improve muscle performance and motor function, To increase tolerance to activity/condition/position, To improve ability of physical actions for home/community/work/leisure, To decrease soft tissue restriction, To increase flexibility/ROM Cryotherapy (ice pack, ice massage): Yes Thermo therapy (hot pack): Yes Ultrasound (thermal/non thermal): Yes For the Purpose of:: To decrease pain, To increase ROM, To improve muscle performance and motor function, To increase tolerance to activity/condition/position, To improve ability of physical actions for home/community/work/leisure, To decrease soft tissue restriction, To increase flexibility/ROM Please do not hesitate to contact me at [phone] by phone or if you have questions or concerns regarding this new plan of care! Sincerely, Samy Johnson PT,
--- NOTE | 2018-01-21 14:31 | HP.PTEVAL ---
Patient's Visit Information JOSELUIS HUI is a 73 year old F referred to Physical Therapy by Octavia Nichols with a diagnosis of Cervical neck pain, cervical muscle spasm. Date of Evaluation: 11/25/17 Physical Therapist: Samy Johnson PT, - Visit Plan Frequency: 1x/Week Duration: 4 Weeks Plan: cont with current PT interventions 1xweek for 4weeks - Subjective Subjective: pt is a 72 y/o female referred neck pain. She reporting falling backwards on 11/16/17 (9 days ago) and hit the back of her back which caused her pain. She initially reported experiencing B UT and shoulder pain but is now only reporting a dull ache in her suboccipital and midline cervical spine. Her symptoms will shift side to side. She fell again 11/21/17 when she tripped over something but this time she fell forward. This is the first time she has fallen in a while. Aggrevating factors: riding in car, looking to the L. Easing factors: heat, medication. 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 Denies n/t in UEs, had some dizziness and some vision changes initially but now resolved. - Pain Neck Pain Intensity (Out of 10): 2 Pain Intensity Range: 3, 10 - Objective OBSERVATION: Significant increase in thoracic kyphosis, forward head, abrasions from fall on the L hand and R elbow. PALPATION: TTP suboccipitals L>R. High tone B UT. ROM: Cervical flexion 25, extension 30, L rotation* 35, R rotation 43, R LF 30, L LF 28. B shoulder ROM WFL. NEURO: Dermatomes intact, myotomes intact, B C5/6/7 DTR 2+. MMT: 4/5 gtrossly except 4-/5 shoulder - Special Tests Sharp Lakia: Negative Vertebral Artery Test: Negative Alar Ligament Test: Negative Comments: Tectorial membrane (-). - Goals Goal 1:: Pt will improve B cervical rotation to 45 degrees to improve tolerance with looking over her shoulder. Goal Time Frame: 4-6 Weeks Goal 2:: Pt will report ability to resume sewing without limitation to allow her to return to her hobbies. Goal Time Frame: 4-6 Weeks Goal 3:: Pt will report a score of 5 points or better on the neck FATEMEH to show improved function and QOL. 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 Goal Time Frame: 4-6 Weeks Goal 5:: Pt will be independent with HEP to sustain gains made in the clinic. Goal Time Frame: 4-6 Weeks - Rehabilitation Potential Physical Therapy Diagnosis: Pt is a 72 y/o female referred for cervical neck pain and muscle spasm. This arised from a fall backwards 9 days ago when she hit her head. Her symptoms are now localized to the L>R subocciptal and cervical paraspinals. This is worsened with L rotation and sustained postures. Her symptoms are consistent with a WAD type injury. She has activity restrctions that include difficulty looking over her shoulder and looking down for a prolonged period of time. This affects her participation with hobbies such as sewing. Pt will benefit from skilled PT to address her mentioned impairments to maximize function. Rehabilitation Potential: Good - Anticipated Interventions Patient/Client Instruction: Educate patient on: Condition, Plan of Care For the Purpose of:: To decrease pain, To increase ROM, To improve muscle performance and motor function, To increase tolerance to activity/condition/position, To improve ability of physical actions for home/community/work/leisure, To improve gait and locomotor functions, To improve health of tissue, To decrease soft tissue restriction, To increase flexibility/ROM, To reduce risk of recurrence, To improve self management Therapeutic Exercise to Include: Strength training, Endurance training, Body mechanics, Postural training, Flexibilty training, Active ROM For the Purpose of:: To decrease pain, To increase ROM, To improve muscle performance and motor function, To increase tolerance to activity/condition/position, To improve ability of physical actions for home/community/work/leisure, To improve health of tissue, To decrease soft tissue restriction, To increase flexibility/ROM, To reduce risk of recurrence, To improve self management Manual Therapy Techniques to Include: Soft tissue mobilization For the Purpose of:: To decrease pain, To increase ROM, To improve muscle performance and motor function, To increase tolerance to activity/condition/position, To improve ability of physical actions for home/community/work/leisure, To decrease soft tissue restriction, To increase flexibility/ROM Cryotherapy (ice pack, ice massage): Yes Thermo therapy (hot pack): Yes Ultrasound (thermal/non thermal): Yes For the Purpose of:: To decrease pain, To increase ROM, To improve muscle performance and motor function, To increase tolerance to activity/condition/position, To improve ability of physical actions for home/community/work/leisure, To decrease soft tissue restriction, To increase flexibility/ROM Thank you for the opportunity to evaluate your patient. For Medicare and Medicare HMO plans, please review the plan of care and approve it. It will need to be FAXED BACK to us at [phone] for Medicare purposes. Please let me know if there are questions or concerns regarding this plan of care. Physician Signature: Date:
--- NOTE | 2018-01-21 14:32 | HP.PTREVAL_ITS ---
Octavia Nichols, It has been my pleasure to treat JOSELUIS HUI over the last 15 visits for Cervical neck pain, cervical muscle spasm. Please see the progress note below for an update on the physical therapy plan of care! Subjective: Patient feeling better today,More cervical movemement for function Objective/Function: POSTURE: mild foward head ,prutruded ,rounded shoulders. NEURO: denies parathesia/tingling,reflexes C5-6-7 1/. CERVICAL ROM: flexion min loss,lateral flexion/rotation mod loss ,extension mod loss. MMT: BUE grossly 4/5,4-5 shoulder. PALPATION:tender levator /scapular UIT left Plan Plan: cont with current PT interventions 1xweek for 4weeks Goals Goal 1:: Pt will improve B cervical rotation to 45 degrees to improve tolerance with looking over her shoulder. Goal Time Frame: 4-6 Weeks Goal Progress: Progressing Goal 2:: Pt will report ability to resume sewing without limitation to allow her to return to her hobbies. Goal Time Frame: 4-6 Weeks Goal Progress: Progressing Goal 3:: Pt will report a score of 5 points or better on the neck FATEMEH to show improved function and QOL. 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 Goal Time Frame: 4-6 Weeks Goal 5:: Pt will be independent with HEP to sustain gains made in the clinic. Goal Time Frame: 4-6 Weeks Goal Progress: Progressing Anticipated Interventions Patient/Client Instruction: Educate patient on: Condition, Plan of Care For the Purpose of:: To decrease pain, To increase ROM, To improve muscle performance and motor function, To increase tolerance to activity/condition/ position, To improve ability of physical actions for home/community/work/leisure , To improve gait and locomotor functions, To improve health of tissue, To decrease soft tissue restriction, To increase flexibility/ROM, To reduce risk of recurrence, To improve self management Therapeutic Exercise to Include: Strength training, Endurance training, Body mechanics, Postural training, Flexibilty training, Active ROM For the Purpose of:: To decrease pain, To increase ROM, To improve muscle performance and motor function, To increase tolerance to activity/condition/ position, To improve ability of physical actions for home/community/work/leisure , To improve health of tissue, To decrease soft tissue restriction, To increase flexibility/ROM, To reduce risk of recurrence, To improve self management Manual Therapy Techniques to Include: Soft tissue mobilization For the Purpose of:: To decrease pain, To increase ROM, To improve muscle performance and motor function, To increase tolerance to activity/condition/ position, To improve ability of physical actions for home/community/work/leisure , To decrease soft tissue restriction, To increase flexibility/ROM Cryotherapy (ice pack, ice massage): Yes Thermo therapy (hot pack): Yes Ultrasound (thermal/non thermal): Yes For the Purpose of:: To decrease pain, To increase ROM, To improve muscle performance and motor function, To increase tolerance to activity/condition/ position, To improve ability of physical actions for home/community/work/leisure , To decrease soft tissue restriction, To increase flexibility/ROM Please do not hesitate to contact me at [phone] by phone or Fax: if you have questions or concerns regarding this new plan of care! Sincerely, Samy Johnson, PT,
--- NOTE | 2018-02-18 15:05 | HP.PTDCSUM ---
HP - PT D/C Summary It has been my pleasure to treat JOSELUIS HUI under orders from Octavia Nichols, for the diagnosis of Cervical neck pain, cervical muscle spasm for a total of 20 visit(s). Discharge Date: Please see the following information for a summary of their discharge status. - Subjective Subjective: Doing better overall less pain with spasms ,Patient has a PERALTA. Patient is able to do ADL'S and housework tasks. Sleeping okay. Denies paathesia/tingling - Pain Neck Pain Intensity (Out of 10): 3 - Overall Improvement % Improvement: 50 - Objective Objective/Function: POSTURE: mild foward posture ,head prutruded foward. PALPATION: tender oociput. CERVICAL ROM: flexion/extension mod loss,rotation/laterl flexion mod loss extnesion mod loss. MMT: 4/5 except shoulder 4-/5. NEURO: denies parathesia/tingling - Goals Goal 1:: Pt will improve B cervical rotation to 45 degrees to improve tolerance with looking over her shoulder. Goal Progress: Progressing Goal 2:: Pt will report ability to resume sewing without limitation to allow her to return to her hobbies. Goal Progress: Progressing Goal 3:: Pt will report a score of 5 points or better on the neck FATEMEH to show improved function and QOL. 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 Goal 5:: Pt will be independent with HEP to sustain gains made in the clinic. Goal Progress: Progressing - Plan Plan: cont with current PT interventions 1xweek for 4weeks - D/C Information If there are questions or concerns regarding this patient's physical therapy, please feel free to call me at [phone]. Thank you for the referral of this patient. Sincerely, Samy Johnson, PT,
--- NOTE | 2018-02-23 14:47 | HP.PTREVAL_ITS ---
Octavia Nichols, It has been my pleasure to treat JOSELUIS HUI over the last 20 visits for Cervical neck pain, cervical muscle spasm. Please see the progress note below for an update on the physical therapy plan of care! Subjective: Doing better overall less pain with spasms ,Patient has a PERALTA. Patient is able to do ADL'S and housework tasks. Sleeping okay. Denies paathesia/tingling Objective/Function: POSTURE: mild foward posture ,head prutruded foward. PALPATION: tender oociput. CERVICAL ROM: flexion/extension mod loss,rotation/laterl flexion mod loss extnesion mod loss. MMT: 4/5 except shoulder 4-/5. NEURO: denies parathesia/tingling Plan Plan: cont with current PT interventions 1xweek for 4weeks Goals Goal 1:: Pt will improve B cervical rotation to 45 degrees to improve tolerance with looking over her shoulder. Goal Time Frame: 4-6 Weeks Goal Progress: Progressing Goal 2:: Pt will report ability to resume sewing without limitation to allow her to return to her hobbies. Goal Time Frame: 4-6 Weeks Goal Progress: Progressing Goal 3:: Pt will report a score of 5 points or better on the neck FATEMEH to show improved function and QOL. 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 Goal Time Frame: 4-6 Weeks Goal 5:: Pt will be independent with HEP to sustain gains made in the clinic. Goal Time Frame: 4-6 Weeks Goal Progress: Progressing Anticipated Interventions Patient/Client Instruction: Educate patient on: Condition, Plan of Care For the Purpose of:: To decrease pain, To increase ROM, To improve muscle performance and motor function, To increase tolerance to activity/condition/position, To improve ability of physical actions for home/community/work/leisure, To improve gait and locomotor functions, To improve health of tissue, To decrease soft tissue restriction, To increase flexibility/ROM, To reduce risk of recurrence, To improve self management Therapeutic Exercise to Include: Strength training, Endurance training, Body mechanics, Postural training, Flexibilty training, Active ROM For the Purpose of:: To decrease pain, To increase ROM, To improve muscle performance and motor function, To increase tolerance to activity/condition/position, To improve ability of physical actions for home/community/work/leisure, To improve health of tissue, To decrease soft tissue restriction, To increase flexibility/ROM, To reduce risk of recurrence, To improve self management Manual Therapy Techniques to Include: Soft tissue mobilization For the Purpose of:: To decrease pain, To increase ROM, To improve muscle performance and motor function, To increase tolerance to activity/condition/position, To improve ability of physical actions for home/community/work/leisure, To decrease soft tissue restriction, To increase flexibility/ROM Cryotherapy (ice pack, ice massage): Yes Thermo therapy (hot pack): Yes Ultrasound (thermal/non thermal): Yes For the Purpose of:: To decrease pain, To increase ROM, To improve muscle performance and motor function, To increase tolerance to activity/condition/position, To improve ability of physical actions for home/community/work/leisure, To decrease soft tissue restriction, To increase flexibility/ROM Please do not hesitate to contact me at [phone] by phone or if you have questions or concerns regarding this new plan of care! Sincerely, Samy Johnson, PT,
--- NOTE | 2018-03-16 09:25 | HP.PTDCSUM ---
HP - PT D/C Summary It has been my pleasure to treat JOSELUIS HUI under orders from Octavia Nichols, for the diagnosis of Cervical neck pain, cervical muscle spasm for a total of 24 visit(s). Discharge Date: 03/16/18 Please see the following information for a summary of their discharge status. - Subjective Subjective: Doing well..Improve ROM cervical spine. for my ADL'S - Pain Neck Pain Intensity (Out of 10): 1 - Overall Improvement % Improvement: 70 - Objective Objective/Function: POSTURE: mild foward posture,head foward. PALPATION: levator/UT. CERVICAL ROM: flexion min loss,extension min/mod loss,lateral flexion /rotation mod. BUE: grossly 4/5 4-/5 shoulder - Goals Goal 1:: Pt will improve B cervical rotation to 45 degrees to improve tolerance with looking over her shoulder. 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 Goal Progress: Goal Met Goal 3:: Pt will report a score of 5 points or better on the neck FATEMEH to show improved function and QOL. 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 Goal Progress: Goal Met Goal 5:: Pt will be independent with HEP to sustain gains made in the clinic. Goal Progress: Goal Met - Plan Plan: D/C - D/C Information Discharge Comments: MAY TRY MASSAGE ON OWN If there are questions or concerns regarding this patient's physical therapy, please feel free to call me at [phone]. Thank you for the referral of this patient. Sincerely, Samy Johnson, PT,
== END 2018-03-16 10:36 | disposition home or self-care (01) ==
LOC: PT 08:00
PROVIDERS: Family Provider Internal Medicine; PCP Internal Medicine; Visit Provider Internal Medicine
DX: M54.2 Cervicalgia (principal); M62.838 Other muscle spasm
CPT/HCPCS: 97035; 97140; 97162; 97530

== ENCOUNTER → 2018-05-02 08:09 | Outpatient (CLI) | payer MEDICARE, SELFPAY ==
[2018-03-03 10:10] VITALS: BMI 29.9
[2018-05-02 08:14] LABS: Mucous, Urine 0 SEEN /hpf (<or=2+); Red Blood Cells-Urine 0 SEEN /hpf (0-5)
[2018-05-02 09:01] LABS: Absolute Lymphocyte Count 1.01 X10^3/ul (0.83-4.51); Absolute Neutrophil Count 4.3 X10^3/uL (2.0-7.7); Basophil# 0.03 X10^3/uL; Basophil% 0.5 % (0-1); Color, Urine Yellow (Yellow); Eosinophil# 0.21 X10^3/uL; Eosinophils% 3.4 % (0-5); Glucose, Dipstick Normal (Normal); Hematocrit 36.1 % (37-47); Hemoglobin 11.3 g/dl (12.0-15.0); Ketone-Dipstick Negative (Negative); Leukocyte Esterase-Dipstick 25 /ul (Negative); Lymphocyte # 1.01 X10^3/ul (4.0); Lymphocyte % 16.3 % (19-41); Mean Corp Hgb Conc 31.3 g/gl (32-36); Mean Corpuscular Hgb 25.1 pg (27.0-32.0); Mean Platelet Vol. 9.6 fl (6.2-12.0); Monocyte# 0.64 X10^3/uL; Monocyte% 10.3 % (0-10); Neutrophil # 4.29 X10^3/uL (2.7-7.7); Neutrophil % 69.2 % (47-70); Nitrite-Dipstick Negative (Negative); Occult Blood-Urine Negative /ul (Negative); POSITIVE COUNT NO; POSITIVE DIFFERENTIAL NO; POSITIVE MORPHOLOGY NO; Platelet Count 279 K/mm3 (150-450); Protein-Dipstick Negative (Negative); RBC Distribution Width CV 14.9 % (11.6-14.6); Red Blood Count 4.51 M/mm3 (4.2-5.4); Urine Bilirubin Dipstick Negative (Negative); Urine Clarity Sl. Cloudy (Clear); Urine Urobilinogen Normal (Normal); Urine pH 6.5 (5.0 - 8.0); White Blood Count 6.2 K/mm3 (4.4-11.0)
[2018-05-02 09:07] LABS: Bacteria 1+ /hpf (None Seen); Squamous Epithelial Cells - UA 0-5 SEEN /hpf (5-10); White Blood Cells 0-5 SEEN /hpf (0-5)
[2018-05-02 09:24] LABS: Microalbumin,Random Urine 10.9 mg/L (NO RANGE EST.); Microalbumin:Creatinine Ratio 18.7 mg/g CRE (<30 mg/g CRE)
[2018-05-02 09:38] LABS: ALB/GLOB Ratio 0.9 RATIO (0.9-2.4); AST(SGOT) 25 U/L (15-37); Alanine Aminotransfer ALT/SGPT 30 U/L (13-56); Albumin, Serum 3.5 g/dL (3.2-5.0); Alkaline Phosphatase 83 U/L (45-117); Anion Gap 5 (5-15); BUN 19 mg/dL (7-18); BUN/Creat Ratio 29.1 RATIO (10-20); Calcium,Total 8.7 mg/dL (8.5-10.1); Chloride 107 mmol/L (98-107); Creatinine, Serum 0.65 mg/dL (0.55-1.02); EST Glomerular Filtration Rate 95 mL/min (>60); Est Glom Filt Rate - Afr Amer 115 mL/min (>60); Globulin 3.9 g/dL (2.2-4.2); Glucose 93 mg/dL (74-106); Potassium 4.3 mmol/L (3.5-5.1); Protein, Total 7.4 g/dL (6.4-8.2); Sodium Level 142 mmol/L (136-145); Thyroid Stim Hormone (TSH) 1.28 uIU/mL (0.358-3.74)
[2018-05-04 12:08] LABS: CHOLESTEROL TOTAL 230 mg/dL (100-199); HDL-C 68 mg/dL (>39); HDL-P TOTAL 37.5 umol/L (>=30.5); SMALL LDL-P 463 nmol/L (<=527); TRIGLYCERIDES 94 mg/dL (0-149)
[2018-05-04 13:05] LABS: LDL SIZE 21.6 nm (>20.5); LDL-C 143 mg/dL (0-99); LDL-P 1929 nmol/L (<1000); LP-IR SCORE ** 43 (<=45)
--- OUTSIDE RECORDS SUMMARY | 2018-08-03 18:46 | XMS RPT_ITS | Continuity of Care Document ---
:1945 Author Organization [facility] Address [address] [facility] [address] [place] [address] Phone Care Team Providers Name Role Phone Octavia Nichols DO Unavailable Alonso FLORES, Dr. Myla Arias Unavailable Dr. Fredy Cox Unavailable Jeana Juarez MD Unavailable [facility], [facility] Unavailable Ruma FLORES, Jaron Meléndez Unavailable Radha Benítez Unavailable Ashlee FLORES, Haseeb Mcelroy Unavailable Vijay Reece Unavailable [facility] Unavailable Kylah FLORES, Cruz Cook Unavailable GAUDENCIO Bowie Unavailable Unavailable Rigo GRANT, Antonella Unavailable Mae Quinones Unavailable Unavailable Love Harding Unavailable Unavailable Reshma Zuniga Unavailable Unavailable Unavailable Unavailable Problems Name Dates Details Abnormal mammogram (R92.8, 793.80) Status: Active Abnormal TSH (R79.89, 790.6) Status: Active Abnormal urine (R82.90, 791.9) Status: Active Accidental fall, initial encounter (W19.XXXA, E888.9) Status: Active Acute recurrent sinusitis, unspecified location (J01.91, 461.9) Status: Active 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 see Dr. orellana neuro psych in [place] 04-29 reviewed with patient and felt memory related to mood disorderSees [facility] [employer] at counseling center [facility] Status: Active Annual Medicare Phyiscal WITHOUT abnormal findings (Renamed from Encounter for general adult medical examination without abnormal findings) (Z00.00, V70.9) Status: Active Anxiety (F41.9, 300.00) Status: Active Athlete's foot (B35.3, 110.4) Status: Active Avulsion fracture of wrist (S62.109A, 814.00) Status: Active Bipolar disorder (F31.9, 296.80) Comments: pt iquiring about changing to pristique-- i told her to discuss with psych Status: Active BMI 30.0-30.9,adult (Z68.30, V85.30) Comments: 30.23 Status: Active BMI 31.0-31.9,adult (Z68.31, V85.31) Status: Active BMI 31.0-31.9,adult (Z68.31, V85.31) Status: Active Breast lump on right side at 10 o'clock position (N63.11, 611.72) Status: Active Cervical pain (M54.2, 723.1) Comments: cat scan head adn neck - wnl except deg/oa Status: Active Chronic GERD (K21.9, 530.81) Status: Active Colon polyp (K63.5, 211.3) Status: Active Concussion (S06.0X9A, 850.9) Comments: secondary to fall Status: Active Constipation, chronic (K59.09, 564.00) Comments: doing better with fiber. 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 saw Dr. orellana wanted mri of back but insurance not cover. did finish PT PT help strengthen legs. talk about doing silver sneakers. Status: Active Deliveries (Parity) Comments: 3 Status: Active Depression (F32.9, 311) 1994 Comments: stable on Zoloft add multivitamin, looking for assisted living Status: Active Diabetes mellitus type II, controlled (E11.9, 250.00) 2004 Comments: eye exam regularly Status: Active Diabetes mellitus with diabetic neuropathy (E11.40, 250.60) Comments: ekg 12- 15, 3-[address] Status: Active Diabetic neuropathy (E11.40, 250.60) Comments: associated with Diabetes treated by Dr. Garcia, using gabapentin Status: Active Diarrhea (R19.7, 787.91) Status: Active Dyskinesia, tardive (G24.01, 333.85) Status: Active Encounter for annual general medical examination with abnormal findings in adult (Z00.01, V70.0) Status: Active Encounter for screening for malignant neoplasm of colon (Renamed from Special screening for malignant neoplasms, colon) (Z12.11, V76.51) Comments: scope was cancelled by dr montero office but she didnt know why? 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 parkinsons vs drug interaction will be discussing with Psych nurse and neurologist recent fall at [facility] Status: Active Fatty liver (K76.0, 571.8) Status: Active Fever and chills (R50.9, 780.60) Status: Active Flank pain (R10.9, 789.09) Status: Active Foreign body of right thumb with infection (S60.351A, 915.7) Comments: splinter removed Status: Active Frequent falls (R29.6, V15.88) Comments: Continue vitamin D.Continue holding Cogentin. better less fallsPatient was having history of frequent falls which have gone down for the last 1 month since she's been off Cogentin. Patient has a histor y of bipolar disorder and sees [facility] nurse practitioner with psychiatry. The Cogentin was stopped by [facility]. Status: Active Hearing loss of left ear due to cerumen impaction (H61.22, 389.8) Status: Active Heart murmur on physical examination (R01.1, 785.2) Status: Active Hip pain (M25.559, 719.45) Comments: 70-year-old female with past medical history of hypertension, hyperlipidemia, bipolar disorder, anxiety, tardive dyskinesia presents with pain in the right hip after a fall. Patient had a pillow lying on the floor of the kitchen and tripped over it while walking. Patient tripped and fell down on her back. Denies hitting her head or having headaches or back pain. Patient is complaining of pain in t he right hip was initially 8/10 in severity but is now 1-2 /10 in severity especially when she presses on it. Does not hurt when she is walking around and is walking normally. Denies knee pain. Aruna ent had right hip replacement in 2002 and left hip replacement 2005. Status: Active Hypercalcemia (E83.52, 275.42) Comments: seeing Armando and had the parathyriod adenoma removed. Status: Active Hyperlipidemia, unspecified (E78.5, 272.4) Status: Active Hyperparathyroidism, primary (E21.0, 252.01) Comments: clinically stableDr Lul dill Status: Active Hypertension, benign (I10, 401.1) Status: Active Hypothyroidism (E03.9, 244.9) Status: Active Irritable bowel syndrome with diarrhea (K58.0, 564.1) Status: Active Itching (L29.9, 698.9) Status: Active Left ankle swelling (M25.472, 719.07) Status: Active Macular degeneration (H35.30, 362.50) Status: Active Memory impairment (R41.3, 780.93) Comments: pt declined rx Status: Active Mild mitral regurgitation (I34.0, 424.0) Comments: echo 3/18 and stable with no chg Status: Active Muscle spasm (M62.838, 728.85) Status: Active Musculoskeletal strain (T14.8XXA, 848.9) Status: Active Need for prophylactic vaccination and inoculation against influenza (Renamed from Need for immunization against influenza) (Z23, V04.81) Status: Active Need for prophylactic vaccination and inoculation against influenza (Renamed from Need for immunization against influenza) (Z23, V04.81) Status: Active Need for Tdap vaccination (Renamed from Need for enzlmaftbv-hpjgdav-hdnorzlln (Tdap) vaccine, adult/adolescent) (Z23, V06.1) Status: Active Nonsmoker (Z78.9, V49.89) Status: Active Nonsmoker (Z78.9, V49.89) Status: Active Nonsmoker (Z78.9, V49.89) Status: Active Nutritional counseling (Z71.3, V65.3) Status: Active Obesity, unspecified (E66.9, 278.00) Comments: 21 day purification she asked about. Status: Active Otalgia, right (H92.01, 388.70) Status: Active Other hallucinations (R44.2, 780.1) Comments: with sleep, and during daytime interupting sleep and thoughtsThinking seeing devil and being told to dig with thoughts of caodaism overtones Status: Active Pain of hand and fingers (M79.643, 729.5) Comments: rt hand at wart site Status: Active Pain of right hand (M79.641, 729.5) Status: Active Postmenopausal (Z78.0, V49.81) Comments: up to date-2017- sees dr stevens Status: Active Pregnancies () Comments: 3 Status: Active Rash (R21, 782.1) Comments: resolved with prednisone and time Status: Active Right carotid bruit (R09.89, 785.9) Status: Active Right elbow pain (M25.521, 719.42) Status: Active Right wrist pain (M25.531, 719.43) Status: Active Runny nose (R09.89, 784.99) Status: Active Stress reaction (F43.0, 308.9) Status: Active Tenosynovitis (M65.9, 727.00) Comments: left Status: Active Thumb pain, right (M79.644, 729.5) Status: Active Type II diabetes mellitus, well controlled (E11.9, 250.00) Comments: [facility] 09/29/17 5.9 well controlled Status: Active Unspecified Diagnosis Status: Active Unspecified Diagnosis Status: Active Unspecified Diagnosis Status: Active UTI (urinary tract infection), bacterial (N39.0, 599.0) Status: Active Visit for screening mammogram (Z12.31, V76.12) Comments: 2017 Status: Active Vitamin D deficiency disease (E55.9, 268.9) Status: Active Wart (B07.9, 078.10) Comments: irritated with infection Status: Active Wrist pain, left (M25.532, 719.43) Status: Active Medications Name Dates Details BusPIRone HCl 15 MG Oral Tablet 1 (one) Tablet 1 qam and 2 qpm for 30 days Quantity: 180 {Tablet} Refills: 7 Ordered:29-Sep-2017 Yany Nichols DO, DO, Kathleen Start : 29-Sep-2017 Active Comments:pt takes as neededpsych prescribes CITRACAL SLOW RELEASE, 652-17-105UL-MG-UNIT (Oral Tablet Extended Release 24 Hour) 2 (two) Tablet ER 24HR Tablet ER 24HR daily for 0 days Quantity: 30 {Tablet} Refills: 0 Ordered:11-Nov-2015 Loli Lombardo LPN Start : 06-Nov-2015 Active Comments:per Dr. Armstrong with supper FREESTYLE LANCETS (Miscellaneous) 1 (one) Misc Misc qd for 0 days Quantity: 1 {Box} Refills: 11 Ordered:20-Aug-2015 Rosa Isela Mcgarry MD Start : 20-Aug-2015 Active FREESTYLE LITE TEST (In Vitro Strip) 1 (one) Strip qd for 0 days Quantity: 1 {Box} Refills: 6 Ordered:20-Aug-2015 Rosa Isela Mcgarry MD Start : 20-Aug-2015 Active LAMICTAL, 150MG (Oral Tablet) 1 qhs (150 MG) Active Levaquin 500 MG Oral Tablet 1 (one) Tablet qd for 0 days Quantity: 10 {Tablet} Refills: 0 Ordered:14-Apr-2018 Yany Nichols DO, DO, Kathleen Start : 14-Apr-2018 Active Levothyroxine Sodium 150 MCG Oral Tablet 1 (one) Tablet qam for 0 days Quantity: 30 {Tablet} Refills: 11 Ordered:23-Mar-2017 Yany Nichols DO, DO, Kathleen Start : 23-Mar-2017 Active Comments:new dose Meloxicam 15 MG Oral Tablet 1 (one) Tablet daily for 10 days then prn for arthritic pain for 0 days Quantity: 30 {Tablet} Refills: 0 Ordered:14-Apr-2018 Yany Nichols DO, DO, Kathleen Start : 14-Apr-2018 Active OLANZapine 2.5 MG Oral Tablet 1 (one) Tablet at bedtime for 0 days Quantity: 30 {Tablet} Refills: 0 Ordered:05-Feb-2016 Rigo GRANT Antonella Start : 05-Feb-2016 Active Omeprazole 40 MG Oral Capsule Delayed Release [address] qd for 0 days Quantity: 30 {Capsule} Refills: 3 Ordered:12-Jan-2018 Yany Nichols DO, DO, Kathleen Start : 12-Jan-2018 Active TiZANidine HCl 4 MG Oral Capsule 1 (one) Capsule Capsule bid prn if drowsy only take qhs for 0 days Quantity: 20 {Capsule} Refills: 0 Ordered:24-Nov-2017 Aliza Lopez Start : 24-Nov-2017 Active TiZANidine HCl 4 MG Oral Tablet 1 (one) Tablet bid for 7 days Quantity: 14 {Tablet} Refills: 0 Ordered:14-Apr-2018 Yany Nichols DO, DO, Kathleen Start : 14-Apr-2018 Active ZOLOFT, 100MG (Oral Tablet) 1 (one) Tablet qd for 0 days Quantity: 30 {Tablet} Refills: 3 Ordered:30-Sep-2015 Rosa Isela Mcgarry MD Start : 30-Sep-2015 Active AMOXICILLIN, 875MG (Oral Tablet) 1 (one) Tablet bid for 0 days Quantity: 10 {Tablet} Refills: 0 Ordered:04-Jun-2015 Jackie Mcgee Start : 23-May-2015 End : 04-Jun-2015 Inactive Comments:[facility] sent it in for her per last emr msg but done see in chart but patient states she has it ATIVAN, 0.5MG (Oral Tablet) 1 Tablet q6-8 hrs prn for anxiety for 0 days Quantity: 20 {Tablet} Refills: 0 Ordered:17-Oct-2012 HOME Byrne Start : 15-Sep-2012 End : 17-Oct-2012 Inactive Comments:called to [facility] 09-15-12 zachariahannaell BACTRIM DS, 800-160MG (Oral Tablet) 1 Tablet bid for 7 days Quantity: 14 {Tablet} Refills: 0 Ordered:08-Dec-2012 Jackie Mcgee Start : 05-Dec-2012 End : 08-Dec-2012 Inactive Betamethasone Dipropionate 0.05 % External Cream apply to affected area Application bid - use sparingly for 7 days Quantity: 15 {Tube} Refills: 0 Ordered:16-Dec-2016 Yany Nichols DO, DO, Kathleen Start : 16-Dec-2016 End : 23-Dec-2016 Inactive BIOTENE DRY MOUTH (Mouth/Throat Gum) 1 (one) Gum daily for 30 days Refills: 0 Ordered:03-Dec-2015 Rigo GRANT Aylin Lucas Start : 25-Oct-2015 End : 24-Nov-2015 Inactive BUSPAR, 10MG (Oral Tablet) 1 qid (10 MG) Inactive CARAFATE, 1GM (Oral Tablet) 1 (one) Tablet daily for 30 days Refills: 0 Ordered:03-Dec-2015 Rigo GRANT Aylin Lucas Start : 25-Oct-2015 End : 24-Nov-2015 Inactive Cefdinir 300 MG Oral Capsule 1 (one) Capsule Capsule bid for 7 days Quantity: 14 {Capsule} Refills: 0 Ordered:09-Jul-2016 Yany Nichols DO, DO, Kathleen Start : 09-Jul-2016 End : 16-Jul-2016 Inactive Cefdinir 300 MG Oral Capsule 1 (one) Milligram bid for 0 days Quantity: 20 {Capsule} Refills: 0 Ordered:02-Jul-2017 Karen Bowie LPN Start : 24-Jun-2017 End : 02-Jul-2017 Inactive Cipro HC 0.2-1 % Otic Suspension 3 (three) drops R ear bid for 0 days Quantity: 1 {Bottle} Refills: 0 Ordered:21-May-2017 Karen Bowie LPN Start : 20-May-2017 End : 21-May-2017 Inactive CIPRO, 500MG (Oral Tablet) 1 Tablet bid for 7 days Quantity: 14 {Tablet} Refills: 0 Ordered:15-May-2015 Aylin Sierra CNP Start : 15-May-2015 End : 22-May-2015 Inactive CIPROFLOXACIN HCL, 500MG (Oral Tablet) 1 Tablet bid for 0 days Quantity: 14 {Tablet} Refills: 0 Ordered:28-Nov-2012 Mary Sarmiento LPN Start : 14-Nov-2012 End : 28-Nov-2012 Inactive CITALOPRAM HYDROBROMIDE, 20MG (Oral Tablet) 1 qd (20 MG) End : 30-Sep-2012 Inactive Comments:d/c per [facility]. [facility] Cough/Cold Daytime [phone] MG/10ML Oral Liquid 5 Milliliter Milliliter q6 hr prn cough for 0 days Quantity: 200 {Milliliter} Refills: 0 Ordered:02-Jul-2017 Karen Bowie LPN Start : 20-May-2017 End : 02-Jul-2017 Inactive DIFLUCAN, 150MG (Oral Tablet) 1 (one) Tablet x1 repeat in 4days for 0 days Quantity: 2 {Tablet} Refills: 0 Ordered:05-Sep-2015 HMOE Byrne Start : 14-Aug-2015 End : 05-Sep-2015 Inactive Doxycycline Hyclate 100 MG Oral Tablet 1 (one) Tablet PO BID for 10 days Quantity: 20 {Tablet} Refills: 0 Ordered:07-Dec-2017 Karen Gandhi Start : 07-Dec-2017 End : 17-Dec-2017 Inactive Flonase 50 MCG/ACT Nasal Suspension 2 (two) Pre-filled Pen Syringe Pre-filled Pen Syringe daily for 0 days Quantity: 1 {Pre-filled_Pen_Syringe} Refills: 0 Ordered:07-Dec-2017 Karen Gandhi Start : 12-May-2017 End : 07-Dec-2017 Inactive Gabapentin 400 MG Oral Capsule 1 Capsule q hs for 0 days Quantity: 90 {Capsule} Refills: 3 Ordered:13-Jan-2017 HOME Byrne Start : 05-Feb-2016 End : 13-Jan-2017 Inactive GEODON, 80MG (Oral Capsule) 1 qd (80 MG) Inactive Hydrocortisone 1 % External Cream 1 (one) Application Apply to affected areas TID for 0 days Quantity: 1 {Tube} Refills: 0 Ordered:05-Jan-2018 HOME Byrne Start : 07-Dec-2017 End : 05-Jan-2018 Inactive LEVOTHYROXINE SODIUM, 88MCG (Oral Tablet) 1 qd (88 MCG) Inactive LEXAPRO, 20MG (Oral Tablet) 1 Tablet daily for 360 days Quantity: 30 {Tablet} Refills: 3 Ordered:20-Nov-2013 HOME Byrne Start : 03-Feb-2013 End : 20-Nov-2013 Inactive Comments:Lazara Pradhan [facility] at [facility] LORATADINE, 10MG (Oral Tablet) 1 qd (10 MG) Inactive LOTRIMIN AF, 1% (External Cream) 1 (one) Cream Cream bid for 0 days Quantity: 1 {Bottle} Refills: 0 Ordered:05-Sep-2015 HOME Byrne Start : 02-Aug-2015 End : 05-Sep-2015 Inactive MACROBID, 100MG (Oral Capsule) 1 Capsule bid for 7 days Quantity: 14 {Capsule} Refills: 0 Ordered:08-Dec-2012 Jackie Mcgee Start : 08-Dec-2012 End : 15-Dec-2012 Inactive Melatonin 3 MG Oral Capsule 1 (one) Capsule at bedtime for 30 days Quantity: 30 {Capsule} Refills: 0 Ordered:11-Mar-2016 Aylin Sierra CNP Start : 05-Feb-2016 End : 06-Mar-2016 Inactive Melatonin ER 3 MG Oral Tablet Extended Release 1 (one) Tablet ER qhs for 0 days Quantity: 30 {Tablet} Refills: 0 Ordered:07-Dec-2017 Karen Gandhi Start : 08-Jun-2016 End : 07-Dec-2017 Inactive METFORMIN HCL ER, 500MG (Oral Tablet Extended Release 24 Hour) 1 Tablet ER 24HR qd for 0 days Quantity: 30 {Tablet} Refills: 3 Ordered:14-Jun-2014 Rosa Isela Mcgarry MD Start : 14-Jun-2014 End : 14-Jun-2014 Inactive NASONEX, 50MCG/ACT (Nasal Suspension) 1 Vandemere(s) each nostril daily for 0 days Quantity: 1 {Suspension} Refills: 0 Ordered:17-Oct-2012 HOME Byrne Start : 26-Nov-2011 End : 17-Oct-2012 Inactive Xaxnoiaz-Flyvlnwrr-SX 1 % Otic Solution 1 (one) Metric Drop Metric Drop uad for 0 days Quantity: 1 {Bottle} Refills: 0 Ordered:07-Dec-2017 Karen Gandhi Start : 21-May-2017 End : 07-Dec-2017 Inactive Comments:4 gtts tid to qid 5 days max 10 days to afted ear NEXIUM, 40MG (Oral Capsule Delayed Release) [address] bid for 0 days Quantity: 60 {Capsule_DR} Refills: 3 Ordered:17-Oct-2012 HOME Byrne Start : 09-Sep-2012 End : 17-Oct-2012 Inactive Comments:Take 1 hr before meal NYSTATIN (External Powder) apply to affected area Powder tid for 0 days Quantity: 1 {Bottle} Refills: 2 Ordered:05-Sep-2015 HOME Byrne Start : 14-Aug-2015 End : 05-Sep-2015 Inactive Comments:dispense large bottle PredniSONE 10 MG Oral Tablet 3 (three) Tablet daily for 6 days Quantity: 18 {Tablet} Refills: 0 Ordered:24-Nov-2017 Yany Nichols DO, DO, Kathleen Start : 24-Nov-2017 End : 30-Nov-2017 Inactive Comments:with food PredniSONE 20 MG Oral Tablet 1 (one) Tablet qd with food for 5 days Quantity: 5 {Tablet} Refills: 0 Ordered:16-Dec-2016 Yany Nichols DO, DO, Kathleen Start : 16-Dec-2016 End : 21-Dec-2016 Inactive PYRIDIUM, 100MG (Oral Tablet) 1 Tablet tid for 2 days Quantity: 6 {Tablet} Refills: 0 Ordered:04-Mar-2012 Aylin Sierra CNP Start : 04-Mar-2012 End : 06-Mar-2012 Inactive Sorbitol 70 % Oral Solution 30 ml two times daily for 30 days Quantity: 1 {QS} Refills: 0 Ordered:11-Mar-2016 Aylin Sierra CNP Start : 05-Feb-2016 End : 06-Mar-2016 Inactive Topicort 0.25 % External Cream 1 (one) Cream Cream bid for 0 days Quantity: 1 {Tube} Refills: 0 Ordered:13-Jan-2017 HOME Byrne Start : 16-Mar-2016 End : 13-Jan-2017 Inactive TRIHEXYPHENIDYL HCL, 5MG (Oral Tablet) 1 qd (5 MG) Inactive VITAMIN D, 1000UNIT (Oral Tablet) 1 bid (1000 UNIT) Inactive VITAMIN D3, 1000UNIT (Oral Capsule) 1 (one) Capsule Capsule daily for 30 days Refills: 0 Ordered:03-Dec-2015 Aylin Sierra CNP Start : 18-Oct-2015 End : 17-Nov-2015 Inactive VITAMIN D3, 1000UNIT (Oral Tablet) 3 (three) Tablet daily for 30 days Quantity: 30 {Tablet} Refills: 0 Ordered:23-May-2015 Santy Sahu MD Start : 23-May-2015 End : 22-Jun-2015 Inactive XANAX, 1MG (Oral Tablet) 1 tid (1 MG) Inactive Comments:she is taking tid everyday 01-22-12 XYZAL, 5MG (Oral Tablet) 1 (one) Tablet daily for 0 days Quantity: 30 {Tablet} Refills: 0 Ordered:25-Oct-2015 Aliza Lopez Start : 02-Aug-2015 End : 25-Oct-2015 Inactive Zithromax Z-Baltazar 250 MG Oral Tablet tad Tablet Tablet qd for 0 days Quantity: 1 {Package} Refills: 0 Ordered:02-Jul-2017 Karen Bowie LPN Start : 20-May-2017 End : 02-Jul-2017 Inactive AmLODIPine Besylate 2.5 MG Oral Tablet 1 Tablet qd for 0 days Quantity: 30 {Tablet} Refills: 3 Ordered:05-Feb-2016 Loli Lombardo LPN Start : 17-Jan-2016 End : 05-Feb-2016 Discontinued ARICEPT, 10MG (Oral Tablet) 1 Tablet qd for 0 days Quantity: 30 {Tablet} Refills: 3 Ordered:21-Feb-2014 Rosa Isela Mcgarry MD Start : 21-Feb-2014 End : 21-Feb-2014 Discontinued Comments:re started per [facility] 09-30-12 AUGMENTIN, 875-125MG (Oral Tablet) 1 (one) Tablet bid for 0 days Quantity: 20 {Tablet} Refills: 0 Ordered:18-Oct-2015 Loli Lombardo LPN Start : 30-Sep-2015 End : 18-Oct-2015 Discontinued BENZTROPINE MESYLATE, 0.5MG (Oral Tablet) 1 (one) Tablet Tablet taking 1 qam prn for 0 days Quantity: 30 {Tablet} Refills: 0 Ordered:07-May-2015 Loli Lombardo LPN Start : 01-Apr-2015 End : 07-May-2015 Discontinued Comments:[facility]seling Center(one pill q am per pt Levothyroxine Sodium 88 MCG Oral Tablet 1 Tablet daily for 0 days Quantity: 90 {Tablet} Refills: 3 Ordered:04-Dec-2015 Loli Lombardo LPN Start : 07-May-2015 End : 04-Dec-2015 Discontinued LOSARTAN POTASSIUM, 25MG (Oral Tablet) 1 (one) Tablet Tablet daily for 0 days Quantity: 30 {Tablet} Refills: 5 Ordered:26-Feb-2015 Rosa Isela Mcgarry MD Start : 26-Feb-2015 End : 26-Feb-2015 Discontinued Lovastatin 40 MG Oral Tablet 1 Tablet qd for 0 days Quantity: 30 {Tablet} Refills: 3 Ordered:05-Feb-2016 Loli Lombardo LPN Start : 17-Jan-2016 End : 05-Feb-2016 Discontinued METANX, 3-90.314-2-35MG (Oral Capsule) 1 (one) Capsule bid for 0 days Quantity: 60 {Capsule} Refills: 0 Ordered:18-Oct-2015 Loli Lombardo LPN Start : 05-Sep-2015 End : 18-Oct-2015 Discontinued MetFORMIN HCl 500 MG Oral Tablet 1 (one) Tablet Tablet bid for 0 days Quantity: 60 {Tablet} Refills: 3 Ordered:05-Feb-2016 Loli Lombardo LPN Start : 25-Oct-2015 End : 05-Feb-2016 Discontinued Sucralfate 1 GM/10ML Oral Suspension 10 ml Milliliter(s) Milliliter qid take 1 hr before meals and at bedtime for 0 days Quantity: 14 {Ounce} Refills: 3 Ordered:05-Feb-2016 Loli Lombardo LPN Start : 18-Jun-2015 End : 05-Feb-2016 Discontinued Comments:dispense 14 ounce bottle TraZODone HCl 50 MG Oral Tablet 1 (one) Tablet daily at bed as needed for 0 days Quantity: 30 {Tablet} Refills: 0 Ordered:08-Jun-2016 Loli Lombardo LPN Start : 05-Feb-2016 End : 08-Jun-2016 Discontinued Comments:Medication taken as needed. Allergies and Adverse Reactions Name Dates Details Codeine/Codeine Derivatives (Allergy) Status: Active Comments: sick to stomach Past Medical History Name Dates Details Abdominal pain (R10.9, 789.00) Comments: Ultrasound abdomen.Patient had an episode of right upper quadrant abdominal pain this morning while she was in the car after she fell down. Penis is around 7-8 x 10 and severe fatigue and lasted for 20 minutes. Denies nausea vomiting diarrhea constipation and abdominal pain. Denies hitting her right side when she fell. per patient she has of this pain whenever she is anxious. Denies having any blo od in stools, black stools. Denies having any pain after meals. Appetite is okay Status: Inactive as of 05-Sep-2015 Abdominal pain, acute, left upper quadrant (R10.12, 789.02) Comments: better now today than was. Status: Inactive as of 29-Mar-2015 Abdominal pain, acute, right upper quadrant (R10.11, 789.01) Comments: pt was to get GB out but was SI so canceled. when called office to get scheduled Dr. montero will not do surgery because psychologist think more emotional. do labs and if okay will watch how stomach does with med adjust. if worsen to new surgeon. told [facility] to call Status: Inactive as of 20-Nov-2013 Abnormal blood findings (R79.9, 790.99) Status: Inactive as of 29-Mar-2015 Abnormal TSH (R79.89, 790.6) Comments: see Swathi suggest take it by itsels Status: Inactive as of 28-Dec-2016 Abnormal ultrasound of parathyroid gland (R93.8, 793.99) Comments: patient seen Dr. Roberts and he is rec. patient seen a surgeon Dr. Sinan Stark in [place] Status: Inactive as of 28-Dec-2016 Allergic rhinitis (J30.9, 477.9) Comments: recommend claritin. with yellow not think infection Status: Inactive as of 28-Dec-2016 Annual Medicare Physical (Renamed from Medicare annual wellness visit, subsequent) (Z00.00, V70.0) Comments: 09-30-15 reviewed with patient all questions and test. last colonoscopy was is to schedule with Dr. Montero October 2015, told to get tetanus at local pharm., all other immunizations are up to date. He aring test WNL, well woman Dr. Victoria , BD 7-2011, mini mental=28/30, last eye exam September 2015 Dr. Dawson Status: Inactive as of 28-Dec-2016 Bacteria in urine (R82.90, 791.9) Comments: couple bugs. will recheck went over how to do clean catch. Status: Inactive as of 29-Mar-2015 Benign paroxysmal positional vertigo, unspecified laterality (H81.10, 386.11) Comments: doubt -- no reprod sx with eye tracking and reports no history with positon chg or spinning Status: Inactive as of 17-Oct-2012 Bloating (R14.0, 787.3) Comments: cut out milk. talk about gastroporesis. will check scan. try synboitic. had for months. info on intestinal gas Status: Inactive as of 29-Mar-2015 Bloating symptom (R14.0, 787.3) Comments: pt screening colonoscopy is sched already for august with dr montero Status: Inactive as of 30-Sep-2015 Blood blister (T14.8XXA, 919.2) Comments: rt hand at beck aspect Status: Inactive as of 28-Dec-2016 BMI 27.0-27.9,adult (Z68.27, V85.23) Status: Inactive as of 28-Dec-2016 BMI 31.0-31.9,adult (Z68.31, V85.31) Status: Inactive as of 28-Dec-2016 Bradycardia (R00.1, 427.89) Comments: new onset and sx Status: Inactive as of 17-Oct-2012 Breast lump (N63.0, 611.72) Comments: saw Dr. curran and had biopsy and lump removed not cancer. told recheck 1 year. and follow up with him then. Status: Inactive as of 17-Oct-2012 Breast screening (Z12.39, V76.10) Status: Inactive as of 14-Mar-2015 Bronchitis (J40, 490) Status: Resolved as of 02-Jul-2017 Bruising (T14.8XXA, 924.9) Comments: rt eye rt thigh Status: Inactive as of 05-Sep-2015 Burning sensation of stomach (K30, 536.8) Comments: BMX in office helpfulprilosec not working BMX good Status: Inactive as of 21-Feb-2013 Cataract (H26.9, 366.9) Status: Inactive as of 05-Aug-2015 Cerumen impaction (H61.20, 380.4) Status: Inactive as of 14-Mar-2015 Ceruminosis, right (Renamed from Excessive cerumen in right ear canal) (H61.21, 380.4) Status: Resolved as of 02-Jul-2017 Chest pain (R07.9, 786.50) Comments: precipitated by ultrasoundwas getting abd ultrasound they with chest pain and anxiety Status: Inactive as of 17-Oct-2012 CHEST PAIN (R07.9, 786.59) Comments: pt did not get stress test because chest pain gone. no repeat pain. not want to do stress test because cost and not have signs and symptoms anymore. she will check with insurance. Status: Inactive as of 17-Oct-2012 Chills (R68.83, 780.64) Status: Resolved as of 02-Jul-2017 Chondrocalcinosis (M11.20, 275.49) Comments: see in knee use nsaid as needed. Status: Inactive as of 29-Mar-2015 Contusion of hip, right, sequela (906.3) Comments: xrays negative. reveiwed with patient ER reports. better than it was. not have pain down the legs. is using meds form ER almost done. will switch over to ibu. to PT and use vicodin prn. had hip replace ment there. will see what PT then may need to see casandraler Status: Inactive as of 29-Mar-2015 Cough (R05, 786.2) Status: Inactive as of 29-Sep-2017 DEMENTIA, VASCULAR UNCOMPLICATED (290.40) Mar-2011 Comments: stable saw Dr. reyna harris. he took off aricept because no signs and symptoms of demenitia. told problem is registrationDr. Bavis, insurance refuse pay nueropsych testing. Status: Inactive as of 21-Feb-2014 Dermatitis due to plants, including poison shantell, sumac, and oak (L25.5, 692.6) Status: Resolved as of 05-Jan-2018 Dizziness and giddiness (R42, 780.4) Status: Inactive as of 17-Oct-2012 Dysuria (R30.0, 788.1) Comments: some wbc will send cx amanda with planning surgery in few weeks. Status: Inactive as of 31-Jan-2013 Earache on right (H92.01, 388.70) Status: Resolved as of 02-Jul-2017 Encounter for screening for cervical cancer (Renamed from Encounter for screening for malignant neoplasm of cervix) (Z12.4, V76.2) Status: Inactive as of 28-Dec-2016 Epigastric Pain (R10.13, 789.06) Comments: workign with Dr. montero. multiple tests. had EGD and good. colonscopy polyp. negative gastric empyting study. some improvement with bowel movement. still some in am better move around. Status: Inactive as of 29-Mar-[address], initial encounter (Y30.XXXA, E987.9) Comments: will send to PT and will use walker regularly. talk about what cause not drink much and positive ortho. also bradycardia. CT scan good. Status: Inactive as of 17-Oct-2012 Headache (R51, 784.0) Comments: secondary to concussion CT head pending Status: Inactive as of 28-Dec-2016 Hearing loss due to cerumen impaction, bilateral (H61.23, 389.8) Status: Resolved as of 13-Jan-2017 Hematuria, unspecified (R31.9, 599.70) Status: Inactive as of 29-Mar-2015 History of head injury (Z87.828, V15.59) Status: Inactive as of 28-Dec-2016 History of kidney stones (Z87.442, V13.01) Comments: saw kori and had surgery better now not ahbe the pain had Status: Inactive as of 28-Dec-2016 Hypercholesteremia (E78.00, 272.0) Status: Inactive as of 17-Oct-2012 Hypoglycemia (E16.2, 251.2) Comments: reactive metformin should not do it. think was syrup talk about small frequent meals and eating a protien with meal Status: Inactive as of 29-Mar-2015 Hypotension due to drugs (I95.2, 458.8) Comments: BP better off med and still fgood Status: Inactive as of 05-Sep-2015 Infectious warts (B07.9, 078.19) Comments: viral- R and L hand Status: Resolved as of 02-Jul-2017 Knee pain (M25.569, 719.46) Comments: recommend PT. pt may not do because cost. kneee is better will do home exercises to strengthen. the nsaids help. handout given on exercises Status: Inactive as of 29-Mar-2015 Melena (K92.1, 578.1) Status: Inactive as of 21-Apr-2013 Nausea (R11.0, 787.02) Comments: found to be related to anxiety disorder. saw Dr. stacy CEDEÑO done. better with psych treatment. Status: Inactive as of 17-Oct-2012 Neck pain (M54.2, 723.1) Comments: do ibu biofreeze, heat. PT and massage not better xray Status: Inactive as of 30-Sep-2015 Need for prophylactic vaccination and inoculation against influenza (Z23, V04.81) Status: Inactive as of 29-Mar-2015 Need for vaccination against Streptococcus pneumoniae (Z23, V03.82) Status: Inactive as of 29-Mar-2015 Otitis externa (H60.90, 380.10) Status: Resolved as of 02-Jul-2017 Pain in a tooth or teeth (525.9) Comments: needs to get back to the dentist. troubel eating with this and weight loss. Status: Inactive as of 20-Nov-2013 Pain of fifth toe (M79.609, 729.5) Comments: think more pressure and talk about diabetic shoes. and will get back to Dr. munoz Status: Inactive as of 28-Dec-2016 Pain of left lower extremity (M79.605, 729.5) Status: Resolved as of 02-Jul-2017 Panic attack (F41.0, 300.01) Comments: talk about this and and will work this psych. to help with meds. Status: Inactive as of 29-Mar-2015 Paronychia, left (L03.012, 681.9) Status: Inactive as of 28-Dec-2016 Polyneuropathy in diabetes (E11.42, 250.60) Comments: gabapentin helpsee neurology Status: Inactive as of 05-Sep-2015 Polyuria (R35.8, 788.42) Status: Inactive as of 21-Apr-2013 Post-nasal drainage (R09.82, 473.9) Comments: viral or allegeric Status: Inactive as of 29-Sep-2017 Preop examination (Z01.818, V72.84) Comments: primary hyperparathyroidism secondary to Rt sided parathyroid adenoma.Followed by Dr. Mitchell Status: Inactive as of 05-Sep-2015 Pre-operative examination (Z01.818, V72.84) Comments: medically stable. will do labs and EKG. once get labs back if good will clear for surgery. usual DVT proph neeeded. will make sure thyrio dgood. no elevated liver tests with blockage of duct and BS and BP controlled now. Status: Inactive as of 21-Apr-2013 Pre-operative general physical examination (Z01.818, V72.83) Status: Resolved as of 05-Jan-2018 Rash (R21, 782.1) Comments: appears scalded milk like appearance under breasts now, off some meds Status: Inactive as of 05-Sep-2015 Rash (R21, 782.1) Comments: if no better after steriod consider treating for mite?( scabies) Status: Inactive as of 28-Dec-2016 RSV (acute bronchiolitis due to respiratory syncytial virus) (J21.0, 466.11) Status: Resolved as of 26-Aug-2017 Screening for HPV (human papillomavirus) (Renamed from Encounter for screening for human papillomavirus (HPV)) (Z11.51, V73.81) Status: Inactive as of 28-Dec-2016 Sinusitis, bacterial (J32.9, 473.9) Status: Resolved as of 02-Jul-2017 Skin lesion of breast (N64.9, 611.9) Status: Resolved as of 05-Jan-2018 Skin tag (L91.8, 701.9) 30-Apr-2014 Comments: on face around eyes irritated keep rubbing Status: Inactive as of 29-Mar-2015 Thumb pain, left (M79.645, 729.5) Status: Resolved as of 05-Jan-2018 Thumb pain, right (M79.644, 729.5) Comments: set up injection Status: Resolved as of 05-Jan-2018 Thyroid nodule (E04.1, 241.0) Comments: sees Dr. Freire reviewed with patient specialist's note remains on synthroidthyriod removed Status: Resolved as of 04-Jun-2015 Trigger finger of right thumb (M65.311, 727.03) Comments: s/p injection Status: Resolved as of 15-Jun-2016 Unspecified Diagnosis Status: Inactive as of 29-Mar-2015 Unspecified Diagnosis Status: Inactive as of 31-Jan-2013 Unspecified Diagnosis Status: Inactive as of 31-Jan-2013 Unspecified Diagnosis Status: Inactive as of 29-Mar-2015 Urgency of urination (788.63) Comments: sometimes have to go more right after going talka bout change in bladder angle and may have to stand up then sit back down Status: Inactive as of 17-Oct-2012 Urinary Frequency (R35.0, 788.41) Comments: go alot through day none at night. no dyursia pt wonder anxiety. Status: Inactive as of 29-Mar-2015 UTI symptoms (R39.9, 788.99) Status: Inactive as of 30-Sep-2015 Viral warts, unspecified type (B07.9, 078.10) Status: Resolved as of 13-Jan-2017 Weakness (R53.1, 780.79) Comments: cpk and esr good. feel better walk this week without issue and strong Status: Inactive as of 14-Jan-2012 WWV V73.21 Comments: had colonscopy 2003, -. saw Dr. victoria 01-25 pap good. talk bout shingles vaccine. talkabout how get done. Status: Inactive as of 29-Mar-2015 Yeast dermatitis (B37.2, 112.3) Status: Inactive as of 30-Sep-2015 Procedures Procedure Dates Details BIlateral hip replacements Completed Comments: Dr. King Thyroidectomy; Total Completed Comments: parathyroidectomy with removal of right inferior gland 05-16-15 Dr. Sinan Stark Umbilical hernia repair Completed Comments: x2 Date Value Details 16-Mar-2018 PT D/C Summary (1) Result: Comments: See Note; NOTES: [facility] [address] [place] [address]. [address] [place] [address] Fax [facility] SUMMARY MR#: [id number] Acct: [id number] Name: JOSELUIS MCKAY Rep #: [id number] : 1945 73 From: Cert. PORTIA Buck PT, OCS Referring DrSandoval: Octavia Nichols DO Status: REG RCR I nsurance: [employer] MEDICAID HP - PT D/C Summary It has been my pleasure to treat JOSELUIS MCKAY under orders from Octavia Nichols, for the diagnosis of Cervical neck pain, cervical m uscle spasm for a total of 24 visit(s). Discharge Date: 03/16/18 Please see the following information for a summary of their discharge status. - Subjective Subjective: Doing well..Improve ROM cervic al spine. for my ADL'S - Pain Neck Pain Intensity (Out of 10): 1 - Overall Improvement % Improvement: 70 - Objective Objective/Function: POSTURE: mild foward posture,head foward. PALPATION: levato r/UT. CERVICAL ROM: flexion min loss,extension min/mod loss,lateral flexion /rotation mod. BUE: grossly 4/5 4-/5 shoulder - Goals Goal 1:: Pt will improve B cervical rotation to 45 degrees to improve t olerance with looking over her shoulder. 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 Goal Progress: Goal Met Goal 3 :: Pt will report a score of 5 points or better on the neck FATEMEH to show improved function and QOL. Goal Progress: Goal Met Goal 4:: Pt will report ability to return to seaman such as mowing an d vacuuming without limitation. Goal Progress: Goal Met Goal 5:: Pt will be independent with HEP to sustain gains made in the clinic. Goal Progress: Goal Met - Plan Plan: D/C - D/C Information Dischar ge Comments: MAY TRY MASSAGE ON OWN If there are questions or concerns regarding this patient's physical therapy, please feel free to call me at [phone]. Thank you for the referral of this patient. Sincerely, Samy Johnson PT, <Electronically signed by Cert. PORTIA Buck PT, OCS> 03/16/18 0954 CC: Octavia Nichols DO CABRERAA Signed 03-Mar-2018 Operative Report - Endoscopy Result: Comments: See Note; NOTES: [facility] Medical Records Department [address] [place] [address] Operative Report - Endoscopy MR#: [id number] Acct: [id number] Name: Demar MCKAY Rep #: [id number] : 1945 73 From: Cruz Montero MD PCP: Octavia Nichols DO Status[facility] Patient Name: Joseluis Mckay Procedure Date: 03/03/2018 11:00 AM Date o f : 1945 Age: 73 Procedure: Colonoscopy Indications: High risk colon cancer surveillance: Personal history of colonic polyps Providers: Cruz Montero MD Referring MD: Cruz Montero MD Medicines: Midazolam 3.5 mg IV, Meperidine 100 mg IV Patient Profile: Last Colonoscopy: 3 years ago. Complications: No immediate complications. Procedure: Pre-Anesthesia Assessment: - Prior to the procedure, a History and Physical was performed, and patient medications and allergies were reviewed. The patient's tolerance of previous anesthesia was also reviewed. The risks and bene fits of the procedure and the sedation options and risks were discussed with the patient. All questions were answered, and informed consent was obtained. Prior Anticoagulants: The patient has taken no p revious anticoagulant or antiplatelet agents. ASA Grade Assessment: II - A patient with mild systemic disease. After reviewing the risks and benefits, the patient was deemed in satisfactory condition to undergo the procedure. After I obtained informed consent, the scope was passed under direct vision. Throughout the procedure, the patient's blood pressure, pulse, and oxygen saturations were monitored continuously. The colonoscope was introduced through the anus and advanced to the cecum, identified by appendiceal orifice and ileocecal valve. The colonoscopy was somewhat difficult due to a tortuous c olon. The patient tolerated the procedure well. The quality of the bowel preparation was adequate to identify polyps. The ileocecal valve was photographed. Moderate Sedation: Moderate (conscious) sedati on was personally administered by the endoscopist. The following parameters were monitored: oxygen saturation, heart rate, blood pressure, and response to care. Total physician intraservice time was 15 minutes. Scope In: 11:09:15 AM Scope Withdrawal Time 0 hours 8 minutes 44 seconds Scope Out: 11:27:52 AM Total Procedure Duration Time 0 hours 18 minutes 37 seconds Findings: Hemorrhoids were found on p erianal exam. Lax anal tone Multiple diverticula were found in the sigmoid colon and descending colon. The colon (entire examined portion) was moderately tortuous. The exam was otherwise without abnorma lity. Impression: - Hemorrhoids found on perianal exam. - Diverticulosis in the sigmoid colon and in the descending colon. - Tortuous colon. - The examination was otherwise normal. - No specimens collec melani. Recommendation: - Discharge patient to home. - Resume regular diet. - Continue present medications. - Repeat colonoscopy in 5 years for surveillance. Procedure Code(s): --- Professional --- 70245, Colonoscopy, flexible; diagnostic, including collection of specimen(s) by brushing or washing, when performed (separate procedure) 32169, 59, Moderate sedation services provided by the same physician or other qualified health home care nurse performing the diagnostic or therapeutic service that the sedation supports, requiring the presence of an independent trained observer to assist in the monitori ng of the patient's level of consciousness and physiological status; initial 15 minutes of intraservice time, patient age 5 years or older Diagnosis Code(s): --- Professional --- Z86.010, Personal histo ry of colonic polyps K64.9, Unspecified hemorrhoids K57.30, Diverticulosis of large intestine without perforation or abscess without bleeding Q43.8, Other specified congenital malformations of intestine CPT copyright 2017 [employer]. All rights reserved. The codes documented in this report are preliminary and upon chemical equipment sales engineer review may be revised to meet current compliance requirements. Romeo Montero MD 03/03/2018 11:33:51 AM This report has been signed electronically. Number of Addenda: 0 Note Initiated On: 03/03/2018 11:00 AM 03/03/18 1134 Date Cruz Montero MD [facility] Signature: Date (if indicated) CC: Octavia Nichols DO; Cruz Montero MD Date Dictated: 03/03/18 1100 Date Transcribed: Equipment Engineer: SENIA Signed 03-Mar-2018 History and Physical Exam Result: Comments: See Note; NOTES: [facility] Medical Records Department [address] [place] [address] History and Physical 03/03/18 1055 MR#: [id number] Acct: [id number] Name: JOSELUIS CRAFT Rep #: [id number] : 1945 73 From: Cruz Montero MD PCP: Octavia Nichols DO Status: REG SDC Y Location: [place] [address]- Problem List (1) Personal history of colonic polyps Status: Acut e History of Present Illness Date of Admission: 03/03/18 The patient is a 73 year old F who notes that she has had a personal history of colon polyps. Most recent colonoscopy was approximately 3 years ago. At that point she had a polyp removed. My request she returns now for planned surveillance colonoscopy. She presents via our open access program. She denies chest pain or shortness of breath cardi ac or pulmonary issues. No abdominal pain. No bright red blood per rectum or melena. No unexpected weight loss. Past Medical History Past Medical History (Chronic Problems): Chronic Problems History of small bowel obstruction (Chronic) Hypothyroid (Chronic) Epigastric pain (Chronic) Dyslipidemia (Chronic) Type II diabetes mellitus (Chronic) Benign essential hypertension (Chronic) Allergies codei ne Adverse Reaction (Mild, Verified 03/01/18 14:53) Upset Stomach hydroxyzine HCl [From Vistaril] Adverse Reaction (Mild, Verified 03/01/18 14:53) Rash hydroxyzine pamoate [From Vistaril] Adverse Reacti on (Mild, Verified 03/01/18 14:53) Rash Home Medications: Ambulatory Orders Medication Instructions Recorded Surgical History: herniorrhaphy, total hip arthroplasty Smoking Status: Never smoker Tob acco Use: Non-smoker Review of Systems Constitutional: Denies: Anorexia HEENT: Denies: Difficulty Swallowing Cardiovascular: Denies: Chest Pain Respiratory: Denies: Cough Gastrointestinal: Denies: Abdo bernice Pain, Hematochezia, Melena Neurological: Denies: Balance problems VTE Information - Inpt Only VTE Present on Admission: No Patient Problems: Active and Suspected Problems Personal history of col onic polyps (Acute) - Physical Exam General: Alert, Oriented x3, Cooperative, No apparent distress HEENT: Atraumatic Oral: Moist Mucosa Neck: Supple Lungs: Clear to auscultation Cardiovascular: Regul ar rate, Regular Rhythm Abdomen: Bowel Sounds Present, Soft, Non Tender, Non-Distended Extremities: No Calf Tenderness Musculoskeletal: No Tenderness to Palpation of Joints or Extremities Neurological: Cranial nerves II-XII grossly intact Vital Signs Temp Pulse Resp BP Pulse Ox 98.8 F 71 16 123/75 H 97 03/03/18 10:10 03/03/18 10:10 03/03/18 10:10 03/03/18 10:10 03/03/18 10:10 Oxygen Delivery Metho d Room Air Weight: 164 lb 0.383 oz Body Mass Index (BMI) 29.9 POC Glucose POC Glucose 88 Assessment/Plan All Active Problems Personal history of colonic polyps (Acute) I am recommending the aruna ent a colonoscopy with possible biopsy or polypectomy is indicated. She is aware of the technique, benefits, risks and alternatives. She has had an opportunity to ask and have questions answered. We ulysses l proceed at her discretion. Cruz Montero M.D., F.A.C.S. 03/03/18 1058 <Electronically signed by Cruz Montero MD> Date Cruz butterfield MD Cosigner Signature: Date (if applicable) CC: Octavia Nichols DO; Cruz Montero MD Signed 23-Feb-2018 Re-Evaluation - PT (1) Result: Comments: See Note; NOTES: [facility] [address] [place] [address]. [address] [place] [address] Fax REEVALUATION / MEDICARE RECERTI [facility] PH[facility]ICAL THERAP[facility] MR#: [id number] Acct: [id number] Name: JOSELUIS MCKAY Rep #: [id number] : 1945 73 From: Samy Johnson PT, Cert. MDT, OCS Referring DrSandoval: Octavia Saldivar atus: REG RCR Insurance: [employer] MEDICAID Octavia Simone, It has been my pleasure to treat JOSELUIS MCKAY over the last 20 visits for Cervical neck pain, cervical muscle spasm. P joan see the progress note below for an update on the physical therapy plan of care! Subjective: Doing better overall less pain with spasms ,Patient has a MERCER. Patient is able to do ADL'S and housework tasks. Sleeping okay. Denies paathesia/tingling Objective/Function: POSTURE: mild foward posture ,head prutruded foward. PALPATION: tender oociput. CERVICAL ROM: flexion/extension mod loss,rotation/lat erl flexion mod loss extnesion mod loss. MMT: 4/5 except shoulder 4-/5. NEURO: denies parathesia/tingling Plan Plan: cont with current PT interventions 1xweek for 4weeks Goals Goal 1:: Pt will improve B cervical rotation to 45 degrees to improve tolerance with looking over her shoulder. Goal Time Frame: 4-6 Weeks Goal Progress: Progressing Goal 2:: Pt will report ability to resume sewing without mahmood itation to allow her to return to her hobbies. Goal Time Frame: 4-6 Weeks Goal Progress: Progressing Goal 3:: Pt will report a score of 5 points or better on the neck FATEMEH to show improved function and Q OL. Goal Time Frame: 4-6 Weeks Goal Progress: Goal Met Goal 4:: Pt will report ability to return to seaman such as mowing and vacuuming without limitation. Goal Time Frame: 4-6 Weeks Goal 5:: Pt will be independent with HEP to sustain gains made in the clinic. Goal Time Frame: 4-6 Weeks Goal Progress: Progressing Anticipated Interventions Patient/Client Instruction: Educate patient on: Cond ition, Plan of Care For the Purpose of:: To decrease pain, To increase ROM, To improve muscle performance and motor function, To increase tolerance to activity/condition/position, To improve ability of physical actions for home/community/work/leisure, To improve gait and locomotor functions, To improve health of tissue, To decrease soft tissue restriction, To increase flexibility/ROM, To reduce risk o f recurrence, To improve self management Therapeutic Exercise to Include: Strength training, Endurance training, Body mechanics, Postural training, Flexibilty training, Active ROM For the Purpose of:: T o decrease pain, To increase ROM, To improve muscle performance and motor function, To increase tolerance to activity/condition/position, To improve ability of physical actions for home/community/work/l eisure, To improve health of tissue, To decrease soft tissue restriction, To increase flexibility/ROM, To reduce risk of recurrence, To improve self management Manual Therapy Techniques to Include: Soft tissue mobilization For the Purpose of:: To decrease pain, To increase ROM, To improve muscle performance and motor function, To increase tolerance to activity/condition/position, To improve ability of physical actions for home/community/work/leisure, To decrease soft tissue restriction, To increase flexibility/ROM Cryotherapy (ice pack, ice massage): Yes Thermo therapy (hot pack): Yes Ultrasound (th ermal/non thermal): Yes For the Purpose of:: To decrease pain, To increase ROM, To improve muscle performance and motor function, To increase tolerance to activity/condition/position, To improve ability of physical actions for home/community/work/leisure, To decrease soft tissue restriction, To increase flexibility/ROM Please do not hesitate to contact me at [phone] by phone or if you have questions or concerns regarding this new plan of care! Sincerely, Samy Johnson PT, <Electronically signed by Samy Johnson PT, Cert. MDT, [facility]> 02/23/18 1449 CC: Gricel Nichols DO VEDA Signed For Medicare only, by signing this I certify the plan of care. Physicians Signature Date 24-Jan-2018 Re-Evaluation - PT (1) Result: Comments: See Note; NOTES: [facility] [address] [place] [address]. [address] [place] [address] Fax REEVALUATION / MEDICARE REC[facility] PHYSICAL THERAPY MR#: [id number] Acct: [id number] Name: JOSELUIS MCKAY Rep #: [id number] : 1945 73 From: Samy Johnson PT, Cert. MDT, OCS Referring Dr.: Octavia Saldivar atus: REG RCR Insurance: [employer] MEDICAID Octavia Nichols, It has been my pleasure to treat JOSELUIS MCKAY over the last 15 visits for Cervical neck pain, cervical muscle spasm. P joan see the progress note below for an update on the physical therapy plan of care! Subjective: Patient feeling better today,More cervical movemement for function Objective/Function: POSTURE: mild fo mendes head ,prutruded ,rounded shoulders. NEURO: denies parathesia/tingling,reflexes C5-6-7 1/3. CERVICAL ROM: flexion min loss,lateral flexion/rotation mod loss ,extension mod loss. MMT: BUE grossly 4/5 ,4-5 shoulder. PALPATION:tender levator /scapular UIT left Plan Plan: cont with current PT interventions 1xweek for 4weeks Goals Goal 1:: Pt will improve B cervical rotation to 45 degrees to improve t olerance with looking over her shoulder. Goal Time Frame: 4-6 Weeks Goal Progress: Progressing Goal 2:: Pt will report ability to resume sewing without limitation to allow her to return to her hobbies. Goal Time Frame: 4-6 Weeks Goal Progress: Progressing Goal 3:: Pt will report a score of 5 points or better on the neck FATEMEH to show improved function and QOL. Goal Time Frame: 4-6 Weeks Goal Progress: G oal Met Goal 4:: Pt will report ability to return to seaman such as mowing and vacuuming without limitation. Goal Time Frame: 4-6 Weeks Goal 5:: Pt will be independent with HEP to sustain gain s made in the clinic. Goal Time Frame: 4-6 Weeks Goal Progress: Progressing Anticipated Interventions Patient/Client Instruction: Educate patient on: Condition, Plan of Care For the Purpose of:: To dec rease pain, To increase ROM, To improve muscle performance and motor function, To increase tolerance to activity/condition/position, To improve ability of physical actions for home/community/work/leisur e, To improve gait and locomotor functions, To improve health of tissue, To decrease soft tissue restriction, To increase flexibility/ROM, To reduce risk of recurrence, To improve self management Therap eutic Exercise to Include: Strength training, Endurance training, Body mechanics, Postural training, Flexibilty training, Active ROM For the Purpose of:: To decrease pain, To increase ROM, To improve mu scle performance and motor function, To increase tolerance to activity/condition/position, To improve ability of physical actions for home/community/work/leisure, To improve health of tissue, To decreas e soft tissue restriction, To increase flexibility/ROM, To reduce risk of recurrence, To improve self management Manual Therapy Techniques to Include: Soft tissue mobilization For the Purpose of:: To de crease pain, To increase ROM, To improve muscle performance and motor function, To increase tolerance to activity/condition/position, To improve ability of physical actions for home/community/work/leisu re, To decrease soft tissue restriction, To increase flexibility/ROM Cryotherapy (ice pack, ice massage): Yes Thermo therapy (hot pack): Yes Ultrasound (thermal/non thermal): Yes For the Purpose of:: To decrease pain, To increase ROM, To improve muscle performance and motor function, To increase tolerance to activity/condition/position, To improve ability of physical actions for home/community/work/le isure, To decrease soft tissue restriction, To increase flexibility/ROM Please do not hesitate to contact me at [phone] by phone or if you have questions or concerns regarding thi s new plan of care! Sincerely, Samy Johnson PT, <Electronically signed by Samy Johnson PT, Cert. MDT, OCS> 01/24/18 1516 CC: Octavia Nichols DO VEDA Signed For Medicare only, by signing this I certify the plan of care. Physicians Signature Date 13-Jan-2018 Emergency Department Summary Result: Comments: See Note; NOTES: [facility] Medical Records Department [address] [place] [address] Emergency Department Summary 01/13/182141 MR#: [id number] Acct: [id number] Name: JOSELUIS MCKAY Rep #: [id number] : 1945 73 From: Susie Maki DO PCP: Octavia Nichols DO Status: REG ER - ER Visit Summary Date of Service: 01/13/18 Chief Complaint: [Addendum to initia l dictation] History of Present Illness: The patient is a 73 F [presented with complaint of right wrist pain. Patient had x-rays yesterday that were read by radiology as possible triquetrum fracture th at is nondisplaced. The x-rays performed today were interpreted by separate radiologist and did not feel there was any fractures. Given that patient has not had any significant trauma that she can recal l I feel is less likely the patient has a fracture. Patient will follow-up with orthopedics and will be given a wrist splint] Physical Examination: [] Test Results: [] Emergency Department Course and Treatment: [] Treatment Plan: [Follow-up with orthopedics in 3-5 days. Wrist splint. Patient may need further imaging to completely and definitively diagnose possible fracture such as possible CT of w rist or MRI as an outpatient if it is felt necessary by orthopedics.] Disposition: [Discharged home in stable condition] Impression: [Right wrist sprain-possible triquetral fracture] This note was generated with [employer] dictation software. It may contain incorrect words, spelling, and punctuation that were not noted in review of the chart prior to signing ED Disposition - Plan for ED Patient: C hief Complaint: Upper Extremity Injury Instructions: ED Sprain Wrist Referrals: Octavia Nichols DO [Primary Care Provider] - Jeronimo Melo MD [STAFF PHYSICIAN] - 3-5 Days What to do if you have Pro blems For any increased pain, shortness of breath, bleeding, nausea or vomiting, chest pain, or any unexpected problems, contact your Primary Care Provider. Call [facility] ([phone]) or repo rt to the closest Emergency Room. Call 911 if necessary. 01/13/182143 <Electronically signed by Susie Maki DO> Date Susie Maki DO Cosigner Signature (If Indicated): Date CC: Octavia Nichols DO 13-Jan-2018 Discharge Instruction Result: Comments: See Note; NOTES: [facility] Medical Records Department [address] [facility] [place] [address] Discharge Instruction 01/13/182131 MR#: [id number] Acct: [id number] Name: JOSELUIS HURLEY Rep #: [id number] : 1945 73 From: Susie Maki DO PCP: Octavia Nichols DO Status: REG ER ED Disposition - Plan for ED Patient: Chief Complaint: Upper Extremity Injury Instructio ns: ED Sprain Wrist Referrals: Octavia Nichols DO [Primary Care Provider] - Jeornimo Melo MD [STAFF PHYSICIAN] - 3-5 Days What to do if you have Problems For any increased pain, shortness of breat h, bleeding, nausea or vomiting, chest pain, or any unexpected problems, contact your Primary Care Provider. Call [facility] ([phone]) or report to the closest Emergency Room. Call 911 if nec essary. 01/13/182132 <Electronically signed by Susie Maki DO> Date Rosalie Shanthi HOGUE Cosigner Signature (If Indicated): Date ____ CC: Octavia Nichols DO 13-Jan-2018 Emergency Department Summary Result: Comments: See Note; NOTES: [facility] Medical Records Department [address] [place] [address] Emergency Department Summary 01/13/189 MR#: [id number] Acct: [id number] Name: JOSELUIS MCKAY Rep #: [id number] : 1945 73 From: Susie Maki DO PCP: Octavia Nichols DO Status: REG ER - ER Visit Summary Date of Service: 01/13/18 Chief Complaint: [Pain right wrist] History of Present Illness: The patient is a 73 F [presents the emergency department with complaint of pain in the right hand and wrist. Patient states that discomforts been there for several days. Pat manjit states that she had a fall about 4 days ago when she fell into the kitchen counter injuring her left arm. Patient is not sure if she hurt her hand at that time because her pain in her hand and wris t did not start until several days later. Patient is right-hand dominant. Patient was seen at urgent care 2 days ago and had x-rays of her right hand and wrist and received a phone call stating that she had a fracture in her wrist and follow-up with orthopedics. Patient states that her pain is currently a 5 out of 10. Physical Examination: [HEENT-PERRLA, EOMI. Cranial nerves II through XII grossly in tact. TMs clear. Mucous membranes moist. No adenopathy. Cardiovascular-regular rate and rhythm without murmur or ectopy Lungs-clear to auscultation, chest wall stable without crepitus or subcu emphyse ma Abdomen-normoactive bowel sounds, soft, nontender, no rebound or rigidity, no peritoneal signs. Extremities-intact 4, normal range of motion, normal pulses. Patient does have some ecchymosis that a ppears old over the left humerus without any bony deformity or bony tenderness. Right hand and wrist-patient has some diffuse tenderness over the volar aspect of the wrist. There is no deformity noted. No ecchymosis or bruising noted no significant soft tissue swelling noted. Patient nervously intact distally with normal range of motion of all digits. Test Results: [X-rays of the right wrist obtained was read by radiology as no acute fractures and only some degenerative changes noted.] Emergency Department Course and Treatment: [Patient was given a right wrist splint. Patient denies anything for p ain here.] Treatment Plan: [Patient to follow-up with orthopedics and continue to wear splint for comfort. Patient will take Tylenol for discomfort.] Disposition: [Discharged home in stable condition] Impression: [Right wrist sprain] This note was generated with [employer] dictation software. It may contain incorrect words, spelling, and punctuation that were not noted in review of the chart prior t o signing ED Disposition - Plan for ED Patient: Chief Complaint: Upper Extremity Injury Referrals: Octavia Nichols DO [Primary Care Provider] - What to do if you have Problems For any increased pain, shortness of breath, bleeding, nausea or vomiting, chest pain, or any unexpected problems, contact your Primary Care Provider. Call [facility] ([phone]) or report to the closest Emergen cy Room. Call 911 if necessary. 01/13/18 2132 <Electronically signed by Susie Maki DO> Date Susie Maki DO Cosigner Signature (If Indicated): Date CC: Octavia Nichols DO 13-Jan-2018 Wrist min 3 Views Result: Comments: See Note; NOTES: [facility] Imaging Services [address] [place] [address] Wrist min 3 Views MR#: [id number] Acct: [id number] Name: JOSELUIS MCKAY Rep #: [id number] : 1945 F 73 From: Jonny Sandy MD PCP: Octavia Nichols DO Status: PRE ER Study: Wrist min 3 Views Date of Exam: 01/13/18 Exam# [id number] Ordering Dr: Provider, Ed P. STUDY: X-RAY - RIG HT WRIST REASON FOR EXAM: Female, 73 years old. Right wrist pain after fall. TECHNIQUE: 3 view(s) of the wrist were obtained. COMPARISON: None. FINDINGS: Normal v isualized distal radius and ulna. Normal radiocarpal articulation. Normal distal radioulnar articulation. Normal carpal bones. Normal carpal articulations. 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 Normal second through fifth carpometacarpal articulations. Normal visualized metacarpal bones. There is amorphous calcification in the region of the vagina o r fibrocartilage, as well as a 2-3 mm degenerative rim calcification in the tissues between the ulnar styloid and triquetrum. 1 mm degenerative calcifications also seen adjacent to the triquetrum itself and the medial margin of the hamate. There is no demonstrated acute fracture. RAD/Wrist min 3 Views IMPRESSION: Mild degenerative changes of the right wrist, as described. There is no demonstrated acute fracture. Electronically Signed: Kamar Sandy MD at 20:35 EDT , Service support , Fax CC: ED PHYSICIAN PROVIDER; Octavia Nichols DO Equipment Engineer: Signed 12-Jan-2018 Wrist min 3 Views Result: Comments: See Note; NOTES: [facility] Imaging Services [address] [place] [address] Wrist min 3 Views MR#: [id number] Acct: [id number] Name: JOSELUIS MCKAY Rep #: [id number] : 1945 F 73 From: Suleman Chan MD PCP: Octavia Nichols DO Status: REG CLI Study: Wrist min 3 Views Date of Exam: 01/12/18 Exam# [id number] Ordering Dr: Aylin Sierra STUDY: X-RAY - R IGHT WRIST REASON FOR EXAM: Female, 73 years old. Pain following a fall. TECHNIQUE: 3 view(s) of the wrist were obtained. COMPARISON: None. FINDINGS: Old avulsion fracture of the ulnar styloid. Calcification of the triangular fibrocartilage. Normal radiocarpal articulation. Normal distal radioulnar articulation. Nondisplaced avulsion fracture of the triquetrum. Normal carpal articulations. Normal carpometacarpal articulation of the thumb. Normal second through fifth carpometacarpal articulations. Normal visualized metacarpal bones. Soft tissue swelling. ___ RAD/Wrist min 3 Views IMPRESSION: Soft tissue swelling. Nondisplaced avulsion fracture of the triquetrum. Electronically Signed: Suleman Chan MD at 11:10 EDT Tel [phone], Service support , CC: Aylin Sierra LABORER CHEMICAL PROCESSING; Octavia Nichols DO Equipment Engineer: Signed 24-Dec-2017 Re-Evaluation - PT (1) Result: Comments: See Note; NOTES: [facility] [address] [place] [address]. [address] [place] [address] Fax [facility]EEVALUATION / MEDICARE [facility] PHYSICAL THERAPY MR#: [id number] Acct: [id number] Name: JOSELUIS MCKAY Rep #: [id number] : 1945 72 From: Samy Johnson PT, Cert. T, OCS Referring DrSandoval: Octavia Nichols DO atus: REG RCR Insurance: [employer] MEDICAID Octavia Nichols, It has been my pleasure to treat JOSELUIS MCKAY over the last 9 visits for Cervical neck pain, cervical muscle spasm. Pl ease see the progress note below for an update on the physical therapy plan of care! Subjective: PT is helping improved with ablity to perform ADL'S and cervical rotation. Patient sleeping better..alla es paratthesia/tingling. Ocassionally MERCER. Objective/Function: POSTURE:FOWARD HEAD POSTURE,ROUNDED SHOULDERS. NEURO: DENIES PARATHESIA/TINGLING ,REFLEXES C5-6-7 1/. MMT:BUE 4/5,4-/5 SHOULDER. CERVICAL R OM: flexion min loss pain ,left cervical rotation/lateral flexion pain left upper c-spine Plan Plan: cont with current PT interventions 2week for 3 weeks Goals Goal 1:: Pt will improve B cervical rota tion to 45 degrees to improve tolerance with looking over her shoulder. Goal Time Frame: 4-6 Weeks Goal 2:: Pt will report ability to resume sewing without limitation to allow her to return to her hobbi es. Goal Time Frame: 4-6 Weeks Goal 3:: Pt will report a score of 5 points or better on the neck FATEMEH to show improved function and QOL. Goal Time Frame: 4-6 Weeks Goal 4:: Pt will report ability to retu rn to seaman such as mowing and vacuuming without limitation. Goal Time Frame: 4-6 Weeks Goal 5:: Pt will be independent with HEP to sustain gains made in the clinic. Goal Time Frame: 4-6 Week s Anticipated Interventions Patient/Client Instruction: Educate patient on: Condition, Plan of Care For the Purpose of:: To decrease pain, To increase ROM, To improve muscle performance and motor funct ion, To increase tolerance to activity/condition/position, To improve ability of physical actions for home/community/work/leisure, To improve gait and locomotor functions, To improve health of tissue, T o decrease soft tissue restriction, To increase flexibility/ROM, To reduce risk of recurrence, To improve self management Therapeutic Exercise to Include: Strength training, Endurance training, Body mec hanics, Postural training, Flexibilty training, Active ROM For the Purpose of:: To decrease pain, To increase ROM, To improve muscle performance and motor function, To increase tolerance to activity/con dition/position, To improve ability of physical actions for home/community/work/leisure, To improve health of tissue, To decrease soft tissue restriction, To increase flexibility/ROM, To reduce risk of recurrence, To improve self management Manual Therapy Techniques to Include: Soft tissue mobilization For the Purpose of:: To decrease pain, To increase ROM, To improve muscle performance and motor func tion, To increase tolerance to activity/condition/position, To improve ability of physical actions for home/community/work/leisure, To decrease soft tissue restriction, To increase flexibility/ROM Cryot herapy (ice pack, ice massage): Yes Thermo therapy (hot pack): Yes Ultrasound (thermal/non thermal): Yes For the Purpose of:: To decrease pain, To increase ROM, To improve muscle performance and motor f unction, To increase tolerance to activity/condition/position, To improve ability of physical actions for home/community/work/leisure, To decrease soft tissue restriction, To increase flexibility/ROM Pl ease do not hesitate to contact me at [phone] by phone or if you have questions or concerns regarding this new plan of care! Sincerely, Samy Johnson PT, <Electroni preston signed by Samy Johnson PT, Cert. MDT, OCS> 12/24/17 0867 CC: Octavia Nichols DO VEDA Signed For Medicare only, by signing this I certify the plan of care. Physicians Signature Date 10-Dec-2017 DIAG MAMM W/CAD, BILAT Result: Comments: See Note; NOTES: [facility] Imaging Services [address] [place] [address] DIAG MAMM W/CAD, BILAT MR#: [id number] Acct: [id number] Name: JOSELUIS MCKAY Rep #: [id number] : 1945 F 72 From: Jonny Lovelace MD PCP: Octavia Nichols DO Status: REG CLI Study: DIAG MAMM W/CAD, BILAT Date of Exam: 12/10/17 Exam# [id number] Ordering Dr: Karen Gandhi LABORER CHEMICAL PROCESSING-C MAMMO GRAPHY - BILATERAL SCREENING REASON FOR EXAM: Female, 72 years old. Routine annual screening examination. Right breast lumps PERTINENT HISTORY: Non-contributory. TECHNIQUE: Digital examination. Medio lateral oblique (MLO) and craniocaudad (CC) views of both breasts were obtained along with 3D tomosynthesis. CAD: CAD was performed on this study. COMPARISON: 01/05/2017 FINDINGS: Breast Composition: T here are scattered areas of fibroglandular density. There are no dominant masses or suspicious calcifications. Specifically, there are no nodules identified to correspond with patient's palpable lumps. No other significant abnormalities are identified. BI/DIAG MAMM W/CAD, BILAT IMPRESSION: Negative screening mammogram. ASSESSMENT CATEGORY: BIRADS Category 2: Benign. A letter re garding these results will be sent to the patient by the facility within 30 days. FOLLOW UP RECOMMENDATION: Yearly follow up mammogram recommended. (A) Approximately 10% of breast cancers are not dete cted by mammography. A normal mammogram should not delay biopsy of a clinically suspicious abnormality. [id number] Electronically Signed: Kamar Lovelace MD at 14:52 EDT , Serv ice support , CC: GEETA Gandhi; Octavia Nichols DO Equipment Engineer: Signed 25-Nov-2017 Inital Evaluation (1) - PT Result: Comments: See Note; NOTES: [facility] [address] [place], [place] [address] Fax [facility] INITIAL EVALUATION MR#: [id number] Acct: [id number] Name: JOSELUIS MCKAY Rep #: [id number] : 1945 72 From: Samy Johnson PT, Cert. MDT, OCS Referring DrSandoval: Octavia Nichols DO Status: REG RCR Insurance: [employer] MEDICAID Patient's Visit Information JOSELUIS MCKAY is a 72 year old F referred to Physical Therapy by Octavia Nichols with a diagnosis of Cervical neck pain, cer vical muscle spasm. Date of Evaluation: 11/25/17 Physical Therapist: Samy Johnson PT, - Visit Plan Frequency: 2x /Week Duration: 4 Weeks Plan: Light intensity soft tissue mobilization, sub occipit al release, and manual traction only. Postural strengthening and stretching to improve cervical ROM and flexibility. Thermal US to improve tissue extensibility. - Subjective Subjective: pt is a 72 y/o female referred neck pain. She reporting falling backwards on 11/16/17 (9 days ago) and hit the back of her back which caused her pain. She initially reported experiencing B UT and shoulder pain but is no w only reporting a dull ache in her suboccipital and midline cervical spine. Her symptoms will shift side to side. She fell again 11/21/17 when she tripped over something but this time s he fell forward. This is the first time she has fallen in a while. Aggrevating factors: riding in car, looking to the L. Easing factors: heat, medication. 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 Denies n/t i n UEs, had some dizziness and some vision changes initially but now resolved. - Pain Neck Pain Intensity (Out of 10): 5 Pain Intensity Range: 3, 10 - Objective OBSERVATION: Significant increase in thoracic kyphosis, forward head, abrasions from fall on the L hand and R elbow. PALPATION: TTP suboccipitals L>R. High tone B UT. ROM: Cervical flexion 25, extension 30, L rotation* 35, R rotati on 43, R LF 30, L LF 28. B shoulder ROM WFL. NEURO: Dermatomes intact, myotomes intact, B C5/6/7 DTR 2+. MMT: 4/5 gtrossly except 4-/5 shoulder - Special Tests Sharp Lakia: Negative Vertebral Artery T est: Negative Alar Ligament Test: Negative Comments: Tectorial membrane (-). - Goals Goal 1:: Pt will improve B cervical rotation to 45 degrees to improve tolerance with looking over her shoulder. Goal Time Frame: 4-6 Weeks Goal 2:: Pt will report ability to resume sewing without limitation to allow her to return to her hobbies. Goal Time Frame: 4-6 Weeks Goal 3:: Pt will report a score of 5 points o r better on the neck FATEMEH to show improved function and QOL. Goal Time Frame: 4- 6 Weeks Goal 4:: Pt will report ability to return to seaman such as mowing and vacuuming without limitation. Goal Time Frame: 4-6 Weeks Goal 5:: Pt will be independent with HEP to sustain gains made in the clinic. Goal Time Frame: 4-6 Weeks - Rehabilitation Potential Physical Therapy Diagnosis: Pt is a 72 y/o fem madelyn referred for cervical neck pain and muscle spasm. This arised from a fall backwards 9 days ago when she hit her head. Her symptoms are now localized to the L>R subocciptal and cervical joelle pinals. This is worsened with L rotation and sustained postures. Her symptoms are consistent with a WAD type injury. She has activity restrctions that include difficulty looking over her shoulder and lo oking down for a prolonged period of time. This affects her participation with hobbies such as sewing. Pt will benefit from skilled PT to address her mentioned impairments to maximize function. Rehabili tation Potential: Good - Anticipated Interventions Patient/Client Instruction: Educate patient on: Condition, Plan of Care For the Purpose of:: To decrease pain, To increase ROM, To improve muscle perf ormance and motor function, To increase tolerance to activity/condition/position, To improve ability of physical actions for home/community/work/leisure, To improve gait and locomotor functions, To impr ove health of tissue, To decrease soft tissue restriction, To increase flexibility/ROM, To reduce risk of recurrence, To improve self management Therapeutic Exercise to Include: Strength training, Endur ance training, Body mechanics, Postural training, Flexibilty training, Active ROM For the Purpose of:: To decrease pain, To increase ROM, To improve muscle performance and motor function, To increase to lerance to activity/condition/position, To improve ability of physical actions for home/community/work/leisure, To improve health of tissue, To decrease soft tissue restriction, To increase flexibility/ ROM, To reduce risk of recurrence, To improve self management Manual Therapy Techniques to Include: Soft tissue mobilization For the Purpose of:: To decrease pain, To increase ROM, To improve muscle per formance and motor function, To increase tolerance to activity/condition/position, To improve ability of physical actions for home/community/work/leisure, To decrease soft tissue restriction, To increas e flexibility/ROM Cryotherapy (ice pack, ice massage): Yes Thermo therapy (hot pack): Yes Ultrasound (thermal/non thermal): Yes For the Purpose of:: To decrease pain, To increase ROM, To improve muscle performance and motor function, To increase tolerance to activity/condition/position, To improve ability of physical actions for home/community/work/leisure, To decrease soft tissue restriction, To incr ease flexibility/ROM Thank you for the opportunity to evaluate your patient. For Medicare and Medicare HMO plans, please review the plan of care and approve it. It will need to be FAXED BACK to us at [phone] for Medicare purposes. Please let me know if there are questions or concerns regarding this plan of care. Physician Signature: Date:__ <Electronically signed by Samy Johnson PT, Cert. T, OCS> 11/25/17 1900 CC: Octavia Nichols DO VEDA Signed For Medicare only, by signing th is I certify the plan of care. Physicians Signature Date 21-Nov-2017 Emergency Department Summary Result: Comments: See Note; NOTES: [facility] Medical Records Department [address] [place] [address] Emergency Department Summary 11/21/17 1125 MR#: [id number] Acct: [id number]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 KERATOSIS MARKED TECHNIQUE: Di gital bilateral breast bright (3D mammographic acquisition) in the CC and MLO projections. 2-D mediolateral oblique (MLO) and craniocaudad (CC) views of both breasts were obtained. CAD: Full Field Digital Mammography with Computer Added Detection was performed. COMPARISON: Nov 26 2014 12:44pm . Nov 25 2011 9:23am FINDINGS: Breast Composition: There are scattered ar eas of fibroglandular density. There are no dominant masses or suspicious calcifications. No other significant abnormalities are identified. BI/SCREENING MAMM (CAD), BILAT IMPRESSION: Stable bilateral screening mammogram. Yearly follow-up mammogram recommended. (A) ASSESSMENT CATEGORY: BIRADS Category 2: Benign. A letter regarding these results will be sent to the patient by the facility within 30 days. Approximately 10% of breast cancers are not detected by mammography. A normal mammogram should not delay biopsy of a clinically suspicious abnormality. [id number] Electronically Signed: Jose Armas MD at 14:49 EDT Tel , Service support , CC: Octavia Nichols DO Equipment Engineer: Signed 02-Dec-2016 Ankle min 3 Views Result: Comments: See Note; NOTES: [facility] Imaging Services [address] [place] [address] Verdana 4d Ankle min 3 Views MR#: [id number] Acct: [id number] Name: JOSELUIS MCKAY ep #: [id number] : 1945 F 71 From: Jose Reno MD PCP: Octavia Nichols DO Status: REG CLI Study: Ankle min 3 Views Date of Exam: 12/02/16 Exam# [id number] Ordering Dr: Aylin Sierra STUDY: X-R AY - LEFT ANKLE REASON FOR EXAM: Female, 71 years old. Fall. yesterday, pain and swelling all over TECHNIQUE: 3 view(s) of the ankle. COMPARISON: None. FINDINGS: Normal visualized distal tibia and fibula. Small calcifications overlying the distal portion of the medial and lateral malleoli. This may represent avulsive fractures. Normal tibiotalar articulation and ankle mortise. There is an enthesophyte involving the posterior superior calcaneus at the site of insertion of the Achilles tendon. The visualized subtalar, talonavicular, calcaneocuboid and tarsal a rticulations are normal. There is soft tissue swelling around the ankle. RAD/Ankle min 3 Views IMPRESSION: Small calcifications overlying the di stal portion of the medial and lateral malleoli. This may represent avulsive fractures. Electronically Signed: Jose Reno MD at 20:08 EDT , Service support , CC: Aylin Sierra; Octavia Nichols DO Equipment Engineer: Signed 08-Jun-2016 Hand Min 3 Views Result: Comments: See Note; NOTES: [facility] Services [address] [place] [address] Verdana 4d Hand Min 3 Views MR#: [id number] Acct: [id number] Name: JOSELUIS MCKAY p #: [id number] : 1945 F 71 From: Suleman Chan MD PCP: Octavia Nichols DO Status: REG CLI Study: Hand Min 3 Views Date of Exam: 06/08/16 Exam# [id number] Ordering Dr: Octavia Nichols DO STUDY: X-RAY - RIGHT HAND REASON FOR EXAM: Female, 71 years old. Pain at the base of the thumb. TECHNIQUE: 3 view(s) of the hand. COMPARISON: None. FINDINGS: Nor mal visualized carpal bones and carpal articulations. Normal carpometacarpal articulation of the thumb. Normal second through fifth carpometacarpal joints. Normal metacarpi. Normal metacarpophalangeal (MCP) joints. Normal visualized phalanges and interphalangeal joints. There is calcification of the triangular fibrocartilage. RAD/Hand Min 3 V iews IMPRESSION: Calcification of the triangular fibrocartilage. Electronically Signed: Suleman Chan MD at 14:44 EST Tel [phone], Service support [phone], CC: Octavia Nichols DO Equipment Engineer: Signed 20-Apr-2016 Elbow min 3 Views Result: Comments: See Note; NOTES: [facility] Imaging Services [address] [place] [address] Verda 4d Elbow min 3 Views MR#: [id number] Acct: [id number] Name: JOSELUIS MCKAY #: [id number] : 1945 F 71 From: Gabo Brito MD PCP: Octavia Nichols DO Status: REG CLI Study: Elbow min 3 Views Date of Exam: 04/20/16 Exam# [id number] Ordering Dr: Octavia Nichols DO STUDY: X-RAY - RIGHT ELBOW REASON FOR EXAM: Female, 71 years old. Pain. TECHNIQUE: 3 view(s) of the elbow. COMPARISON: None. FINDINGS: Normal visualized humerus, radius and ulna. Normal radiocapitellar and ulnotrochlear articulations. The soft tissue structures are unremarkable. RAD/Elbow min 3 Views IMP RESSION: Normal x-ray examination of the elbow. Electronically Signed: Gabo Brito MD at 23:25 EST , Service support [phone], CC: Octavia Nichols DO Equipment Engineer: Signed 20-Apr-2016 Humerus min 2 Views Result: Comments: See Note; NOTES: [facility] Services [address] [place] [address] Verdana 4d Humerus min 2 Views MR#: [id number] Acct: [id number] Name: JOSELUIS MCKAY Rep #: [id number] : 1945 F 71 From: Gabo Brito MD PCP: Octavia Nichols DO Status: REG CLI Study: Humerus min 2 Views Date of Exam: 04/20/16 Exam# [id number] Ordering Dr: Octavia Ncihols DO STUDY: X-RAY - RIGHT HUMERUS REASON FOR EXAM: Female, 71 years old. Elbow and arm pain TECHNIQUE: 2 view(s) of the humerus. COMPARISON: None. FINDINGS: Maribel l visualized humerus. There is no demonstrated fracture or osseous destructive process. There is no demonstrated soft tissue abnormality. RAD/Hu merus min 2 Views IMPRESSION: Normal x-ray examination of the humerus. Electronically Signed: Gabo Brito MD at 23:28 EST , Service support [phone], Fax CC: Octavia Nichols DO Equipment Engineer: Signed 27-Jan-2016 12 Lead Electrocardiogram Result: Comments: See Note; NOTES: [facility] Cardiovascular Services [address] [place] [address] 12 Lead EKG 01/24/16 1601 MR#: [id number] Acct: [id number] Name: JAKE MCKAY Rep #: [id number] : 1945 71 From: Sebastian Valenzuela MD Attending Dr: Status: DEP ER Ordering Dr: Kristian Sauceda MD Date: 01/24/16 Location: ED Sex: F C Admitted: Test Reason : MENTAL HEALTH E KAREN Blood Pressure : / mmHG Vent. Rate : 060 BPM Atrial Rate : 060 BPM P- R Int : 186 ms QRS Dur : 100 ms QT Int : 422 ms P-R-T Axes : 028 -16 015 degrees QTc Int : 422 ms Normal sinus rhythm Norm al ECG Confirmed by TARAH FLORES, SEBASTIAN ([id number]), electronic news gathering editor KATIE MELO ([id number]) on 01/27/2016 1:21:19 PM Referred By: Confirmed By:SEBASTIAN VALENZUELA MD 01/27/16 1321 Date ____ Sebastian Valenzuela MD CC: Aylin Sierra Date Dictated: 01/24/16 160 Date Transcribed: 01/24/161600 Equipment Engineer: Signed 27-Jan-2016 Emergency Department Summary Result: Comments: See Note; NOTES: [facility] Medical Records Department [address] [place] [address] Emergency Department Summary MR#: [id number] Acct: [id number] Name: JOSELUIS MCKAY Rep #: [id number] : 1945 71 From: Kristian Sauceda MD PCP: Aylin Sierra Status: DEP ER DATE OF SERVICE: 01/24/2016 METHOD OF ARRIVAL: Private car. CHIEF COMPLAINT: Naif. HISTORY O F PRESENT ILLNESS: A 71-year-old female patient of Aylin Sierra with a history of bipolar disorder reports that for the past 3 days she has felt very alert and like she is getting a lot done. The patient reports she has had poor sleep. She cleaned out 4 cupboards last night, did not sleep at all. The patient reports that 3 days ago, she saw the devil in the living room, threw a water bottle on, but mi ssed. PHYSICAL EXAMINATION: GENERAL: Reveals alert woman in no acute distress. VITAL SIGNS: Stable. MENTAL STATUS: Significant physical exam findings include the mental status exam. The patient appears her stated age. She has good posture and grooming. She makes good eye contact. She has increased rate of speed with flight of ideas and pressured speech. She denies any suicidal or homicidal ideation, any auditory or visual hallucinations. Other than this episode with the devil, insight and judgment is poor. The remainder of physical exam is unremarkable. Please see T-sheet for details. TEST RESULT S: The patient had a CBC that is remarkable for monocytes of 11. Chem-7 is remarkable for BUN of 23, UA that is negative. Toxin, alcohol that are normal, a TSH of 6.5. EMERGENCY DEPARTMENT COURSE: The patient is resting comfortably. TREATMENT PLAN: The [facility] They have seen her, arranged for her to be transferred to [facility]. DISPOSITION: Transferre d in stable condition. IMPRESSION: Acute naif. Kristian Sauceda MD C C: Aylin Sierra T: NTS JOB: [id number] 01/27/16 0044 <Electronically signed by Kristian Sauceda MD> Date Kristian Sauceda MD Cosigner Signature (If Indicated): Date CC: Aylin Sierra Date Dictated: 01/24/161613 Date Transcribed: 01/24/161613 Equipment Engineer: Signed 03-Jan-2016 Brain/Head without Contrast Result: Comments: See Note; NOTES: [facility] Imaging Services [address] [place], [place] [address] [address] Verdana 4d Brain/Head without Contrast MR#: [id number] Acct: [id number] Name: JOSELUIS MCKAY Rep #: [id number] : 1945 F 70 From: Suleman Chan MD PCP: Aylin Sierra Status: REG CLI Study: Brain/Head without Contrast Date of Exam: 01/03/16 Exam# [id number] Ordering Dr: Aylin Sierra STUDY: CT BRAIN WITHOUT CONTRAST REASON FOR EXAM: Female, 70 years old. Headaches following a recent fall. RADIATION DOSAGE (If Supplied By Facility): CTDIvol = ( 58.30 ) mGy, DLP = ( 1020.3 4 ) mGycm TECHNIQUE: Transaxial CT imaging of the brain was performed without administration of intravenous contrast material. Individualized dose optimization techniques were used for this CT. MONTY RISON: Comparison is made with prior study dated October 19, 2015. FINDINGS: Normal soft tissue structures. Normal calvarium. There is mild cerebral atrophy with wideni ng of the extra-axial spaces and ventricular dilatation. There are areas of decreased attenuation within the white matter tracts of the supratentorial brain, consistent with microvascular disease change s. Normal basal ganglia and thalami. Normal brainstem. Normal cerebellum. There is no intracranial hemorrhage. There are no findings of an acute ischemic infarction. There is calcification of the verte bral arteries as well as the cavernous portions of the internal carotid arteries bilaterally. Normal visualized paranasal sinuses. CT/Brain/Hea d without Contrast IMPRESSION: Chronic involutional changes of the brain. Electronically Signed: Suleman Chan MD at 11:16 EDT Tel [phone], Service support [phone], Fax CC: Aylin Sierra Equipment Engineer: Signed 19-Oct-2015 Emergency Department Summary Result: Comments: See Note; NOTES: [facility] Medical Records Department [address] [place] [address] Emergency Department Summary MR#: [id number] Acct: [id number] Name: JOSELUIS MCKAY Rep #: [id number] : 1945 70 From: Rogelio Marcial MD PCP: Aylin Sierra Status: DEP ER DATE OF SERVICE: 10/17/2015 METHOD OF ARRIVAL: By EMS. CHIEF COMPLAINT: Dizzine ss. PRIMARY CARE: See Aylin Rosas SHEETS HISTORY: A 70-year-old female with history of hypertension, diabetic, high cholesterol, bipolar, reflux disease. The patient comes in with compla int of dizziness by squad. The patient was apparently at Dr. Munoz's office, a beauty counselor here. She accordingly got turned out for confusion. On arrival there, the patient was greeted by the staff. Reportedly, blood pressure was dropping and then on examining in the room, the patient was found lying supine without any complaints, but according to them was slightly confused. The patient was hel ped to the couch. Blood sugar was 87 and she stated that she had periods of loss of time recently, trouble articulating herself for the past month. The patient's said she has not been herself for the last 24 hours according to him, concerned that the patient may be overmedicated as well. [place] scale was negative and they did say she had some slurred speech but it has been there for a month. Here, the patient complains of dizziness. States she feels lightheaded according to her and the , they do not give me this type of story that the EMS has given about confusion. They stat e that she just keeps on falling asleep. They state that she has not been sleeping well at night, only getting about 5 hours of sleep where she goes to bed at about 10 p.m. and wakes up at 3 a.m. Acc ording to the beauty counselor, her blood pressure were reportedly low, but her blood pressures when I spoke with Dr. Munoz was 109/63 and 116/75 respectively. They reported her having some trouble walki ng with the dizziness. REVIEW OF SYSTEMS: The patient does complain of some runny nose, some diarrhea or loose stool. Last episode was yesterday, but no nausea or vomiting. No chest pain, no shortne ss of breath. She does admit to feeling depressed and feeling weak, but no focal neurologic findings. She also reports that she feels anxious. They have been weaning some medication dosages, but they have not been increasing. She sees multiple physicians as well and the and the patient also portrayed to me concern about being overmedicated. She has not missed any medications. Sometimes, s he misses her suppertime medications. PHYSICAL EXAMINATION: VITAL SIGNS: Stable. Afebrile. HEENT: Head exam reveals no visible signs of trauma. Pupils are equal, round, reactive. TMs are pearly whi te. NECK: Supple. HEART: Regular. LUNGS: Clear. ABDOMEN: Soft, nontender. NEUROLOGIC: The patient is awake, alert, answers all questions appropriately to person, place and time. No facial droop. N o abnormal uicyxw-em-tqqe. She has normal pxfr-iw-dtaz, no drift. Negative Babinski. She does appear to be depressed, but her NIH is 0. TESTS: Chest x-ray, 2 view, is negative. CT of the brain show s chronic involutional changes, but nothing acute. EKG is sinus bradycardic at 56 without ischemia. CBC: Her white count is 5.7, hemoglobin is 11.4, 10% monocytes. Chemistry panel remarkable for chlor rodolfo of 109. Her urine shows leukocytes, but 0-5 whites and reds with no bacteria, no signs of infection. Troponin is negative. EMERGENCY DEPARTMENT COURSE: The patient was started on IV fluids, mon itor. I did check orthostatics, they are negative. At this time, on her workup, I do not have a clear etiology for her symptoms. She does not give me any symptoms to suggest vertigo. At this point, I attempted to page her primary care, but she has not returned my call as of yet, but the patient feels well and wishes to go home. I am advising the patient to try to follow up with all of her doctors and get everyone communicating to see if there are any medications that need to be stopped or adjusted or if there are any interactions with each other. The patient is agreeable with this plan as wel l as her . CLINICAL IMPRESSION: 1. Dizziness. 2. History of bipolar. DISPOSITION: Home. MD Terrell Coley C: Rosa Isela Sierra T: VIKY JOB: [id number] 10/19/15 2306 &am p;#60;Electronically signed by Rogelio Marcial MD> Date Rogelio Marcial MD Cosigner Signature (If Indicated): Date CC: Aylin Sierra; Rosa Isela Mcgarry MD Date Dictated: 10/17/151707 Date Transcribed: 10/17/151707 Equipment Engineer: Signed 19-Oct-2015 Emergency Department Summary Result: Comments: See Note; NOTES: [facility] Medical Records Department [address] [place] [address] Emergency Department Summary MR#: [id number] Acct: [id number] Name: JOSELUIS MCKAY Rep #: [id number] : 1945 70 From: Man Salamanca MD PCP: Aylin Sierra Status: DEP ER DATE OF SERVICE: 10/19/2015 CHIEF COMPLAINT: Fall. HISTORY OF PRESENT ILLNESS : A 70-year-old female who slipped on some salt on the floor at [facility], injuring her head. She is right hand dominant. Last tetanus was 4 or 5 years ago. No loss of consciousness, but she does have a headache. No neurologic symptoms otherwise. No diplopia or trouble with her vision or eye pain. PAST MEDICAL HISTORY: Hypertension, diabetes, fatty liver, emotional and mood disorder. She has had bilateral total hip arthroplasties. PHYSICAL EXAMINATION: VITAL SIGNS: She is afebrile. Vital signs are normal. GENERAL: She is keenly alert and oriented x3 with a GCS of 15. HEENT: She has a cont usion and overlying partial thickness 0.5 cm laceration to her left forehead near her eyebrow. No tenderness at the orbital brim. Extraocular movements are intact without pain, palsy or entrapment. Pu pils are equal, round and reactive to light. Midface is stable. NECK: Nontender. NEUROLOGIC: Normal neurologic exam peripherally. EXTREMITIES: She has very mild tenderness of the left thigh, but she is ambulatory without difficulty and has full range of motion, pain mostly about the left hip. EMERGENCY DEPARTMENT COURSE: CT of the head shows no acute traumatic abnormality. She was given Tyleno l at her request, and we placed a Steri-Strip across her laceration after cleansing it, I do not think she needs stitches or Dermabond right now. She is encouraged to follow up as needed. IMPRESSIO N: 1. Left facial laceration. 2. Closed head injury without loss of consciousness. DISPOSITION: Home. CONDITION: Stable. Man Tejada C: Aylin Sierra T: VIKY JOB: [id number] 10/19/151837 <Electronically signed by Man Salamanca MD> Date Man Salamanca MD Cosigner Signature (If Indicated): Date CC: Aylin Sierra Date Dictated: 10/19/151441 Date Transcribed: 10/19/151441 Equipment Engineer: Signed 19-Oct-2015 Discharge Instruction Result: Comments: See Note; NOTES: [facility] Medical Records Department [address] [place] [address] Discharge Instruction 10/19/15 1443 MR#: [id number] Acct: [id number] Name: JOSELUIS MCKAY Rep #: [id number] : 1945 70 From: Man Salamanca MD PCP: Aylin Sierra Status: REG ER ED Disposition - Plan for ED Patient: Disposition: Home or Assisted Melanie ing Chief Complaint: Fall Instructions: ED Fall, Mechanical, ED Laceration, All, ED HEAD INJURY, No Wake-Up (Adult) Referrals: Aylin Sierra [Primary Care Provider] - 1 Week if not improving What t o do if you have Problems For any increased pain, shortness of breath, bleeding, nausea or vomiting, chest pain, or any unexpected problems, contact your doctor. Call [facility] ([phone]) or report to the closest Emergency Room. Call 911 if necessary. 10/19/15 1443 <Electronically signed by Man Salamanca MD> Date Man Salamanca MD Cosigner Signature (If Indicated): Date CC: Aylin Angelinabeth 19-Oct-2015 Brain/Head without Contrast Result: Comments: See Note; NOTES: [facility] Imaging Services [address] [place] [address] Verdana 4d Brain/Head without Contrast MR#: [id number] Acct: [id number] Name: JOSELUIS MCKAY Rep #: [id number] : 1945 F 70 From: Noé Carr MD PCP: Aylin Sierra Status: REG ER Study: Brain/Head without Contrast Date of Exam: 10/19/15 Exam# [id number] Ordering Dr: Man Salamanca MD STUDY: CT BRAIN WITHOUT CONTRAST REASON FOR EXAM: Female, 70 years old. Fell and hit head. No LOC. History of DM and hypertension. Contusion/abrasion left eyebrow. RADIA TION DOSAGE: CTDIvol = ( 58.41 ) mGy, DLP = ( 978.49 ) mGycm TECHNIQUE: Transaxial CT imaging of the brain was performed without administration of intravenous contrast material. Individualized dose optimization techniques were used for this CT. COMPARISON: October 17, 2015. FINDINGS: Left periorbital soft tissue swelling/laceration noted, new as compared to prior study. Normal calvarium. Involutional changes and bilateral cerebral chronic periventricular white matter disease noted similar to prior study. Normal basal ganglia and thalami. Beam hardening artifacts noted. Otherwise unremarkable brainstem and cerebellum. There is no intracranial hemorrhage. There are no findings of an acute ischemic infarction. Unremarkable visualized paranasal sin uses with mild mucosal thickening. Clear mastoids. IMPRESSION: Soft tissue swelling/laceration noted. No definite acute intracranial abnormalities are seen. Sta ble involutional/chronic changes noted. There is no intracranial hemorrhage, mass-effect or CT evidence of acute infarction. Electronically Signed: Noé Carr MD at 13:03 EDT Tel [phone], Service support [phone], CC: Aylin Sierra; MAN SALAMANCA MD Equipment Engineer: Signed 17-Oct-2015 Discharge Instruction Result: Comments: See Note; NOTES: [facility] Medical Records Department [address] [place] [address] Discharge Instruction 10/17/15 1652 MR#: [id number] Acct: [id number] Name: JOSELUIS MCKAY Rep #: [id number] : 1945 70 From: Rogelio Marcial MD PCP: Aylin Sierra Status: REG ER ED Disposition - Plan for ED Patient: Disposition: Home or Assisted Living Chief Complaint: General Illness Instructions: ED Dizziness, Unk Cause Referrals: Aylin Sierra [Primary Care Provider] - 2 Days Additional Instructions: follow up with your doctors. try to get ever yone cooperating on medication each is prescribing. return with problems What to do if you have Problems For any increased pain, shortness of breath, bleeding, nausea or vomiting, chest pain, or any unexpected problems, contact your doctor. Call [facility] ([phone]) or report to the closest Emergency Room. Call 911 if necessary. 10/17/15 1659 <Electronically signed by Rogelio Marcial MD> Date Rogelio Marcial MD Cosigner Signature (If Indicated): Date CC: Aylin Sierra 17-Oct-2015 Brain/Head without Contrast Result: Comments: See Note; NOTES: [facility] Imaging Services [address] [address] Verdana 4d Brain/Head without Contrast MR#: [id number] Acct: [id number] Name: JOSELUIS MCKAY Rep #: [id number] : 1945 F 70 From: Man Garcia MD PCP: Aylin Sierra Status: REG Study: Brain/Head without Contrast Date of Exam: 10/17/15 Exam# [id number] Rocío harris Dr: Rogelio Marcial MD STUDY: CT BRAIN WITHOUT CONTRAST REASON FOR EXAM: Female, 70 years old. Slurred speech. Loss of balance. RADIATION DOSAGE (If Supplied By Facility): CTDIvol = ( 58.37 ) mGy , DLP = ( 1021.59 ) mGycm TECHNIQUE: Transaxial CT imaging of the brain was performed without administration of intravenous contrast material. Individualized dose optimization techniques were used for this CT. COMPARISON: August 2013. FINDINGS: Normal soft tissue structures. Normal calvarium. Arthritic change of the temporomandibular joints. Normal siz e ventricles and extra-axial spaces for the patient's age. There are areas of decreased attenuation within the white matter tracts of the supratentorial brain, consistent with microvascular disease ch anges. There are small punctate calcifications of the basal ganglia which are seen in the aging brain as a normal variant. Normal brainstem. Normal cerebellum. There is no intracranial hemorrhage. T here are no findings of an acute ischemic infarction. Mucosal thickening of the right maxillary and frontal sinuses. IMPRESSION: Chronic involutional changes o f the brain. No hemorrhage. Electronically Signed: Man Garcia MD at 16:33 EDT , Service support [phone], CC: Aylin Sierra; Rogelio Marcial MD Equipment Engineer: Signed 17-Oct-2015 Chest PA and Lateral Result: Comments: See Note; NOTES: [facility] Imaging Services [address] [address] Verdana 4d Chest PA and Lateral MR#: [id number] Acct: [id number] Name: JOSELUIS MACIAS Rep #: [id number] : 1945 F 70 From: Man Garcia MD PCP: Aylin Sierra Status: REG ER Study: Chest PA and Lateral Date of Exam: 10/17/15 Exam# [id number] Ordering Dr: Allison Marcial MD STUDY: X-RAY CHEST REASON FOR EXAM: Female, 70 years old. Weakness. Altered level of consciousness. TECHNIQUE: Frontal and lateral views of the chest. COMPARISON: April 16, 2013 __ FINDINGS: The lungs are clear and expanded. There is no demonstrated pleural abnormality. Normal size heart. Normal mediastinum and carlin. Normal visualized pulm onary arteries. There is atherosclerotic tortuosity of the aortic arch and descending thoracic aorta. There is an increased kyphosis of the thoracic spine. Normal visualized ribs, clavicles, and deniz ulders. There is no demonstrated abnormality of the visualized soft tissue structures of the upper abdomen. IMPRESSION: Degenerative changes, as described abov e. No demonstrated acute cardiopulmonary process. Electronically Signed: Man Garcia MD at 16:28 EDT , Service support [phone], RAD/Chest PA and Lateral IMPRESSION: Degenerative changes, as described above. No demonstrated acute cardiopulmonary process. Electronically Signed: Man Garcia MD at 16:28 EDT , Service support [phone], CC: Aylin Sierra; Rogelio Marcial MD Equipment Engineer: Signed 07-May-2015 EKG ([id number]) Result: [MEASUREMENTS ANALYSIS] Date of Test: 05/07/2015 14:57:34; Heart Rate: 74; IA Interval: 180; QRS: 97; QT Interval: 372; Corrected QT Interval (QTc): 396; P Wave Tatum: 66; QRS Wave Tatum: -4; T Wave Tatum: 40; Blood Pressure: 118/76 [ECG DIAGNOSTIC STATEMENTS] Date of Test: 05/07/2015 14:57:34; Summary: Sinus Rhythm -Left atrial enlargement. - Negative precordial T-waves. BORDERLINE [MEASUREMENTS ANAL YSIS] Date of Test: 05/07/2015 14:57:26; Heart Rate: 73; IA Interval: 184; QRS: 100; QT Interval: 370; Corrected QT Interval (QTc): 392; P Wave Tatum: 57; QRS Wave Tatum: 6; T Wave Tatum: 48; Blood Pressur e: 118/76 [ECG DIAGNOSTIC STATEMENTS] Date of Test: 05/07/2015 14:57:26; Summary: Sinus Rhythm -Left atrial enlargement. - Negative precordial T-waves. BORDERLINE 28-Feb-2015 PT Discharge Summary Result: Comments: See Note; NOTES: [facility] [address] [place] [address] Fax REHABILITATION RVICES DISCHARGE SUMMARY MR#: [id number] Acct: [id number] Name: JOSELUIS MCKAY Rep #: [id number] : 1945 70 From: Samy Johnson Referring DrSandoval: Samy Rodriguez MD Status: REG RCR Teresa l Date: Discharge Date: DATE OF SERVICE: REFERRING PHYSICIAN: Dr. Samy Rodriguez. This patient by the name of Joseluisrefugio Mckay who was born on 1945 was referred to physical therapy with a diagnosis of lumbar radiculopathy. The patient received a total number of 8 physical therapy sessions. Our physical therapy sessions focused on home exercise program, dynamic lumbar stabilizati on, abdominal back, posture exercises, patient education and lower extremity strengthening. At the time of discharge, the patient reported that she is about 50 percent better overall. Today, she has 1 /10 pain in her right buttock area, otherwise she did not have any pain prior to that. She fell today. She does have unsteady gait pattern, which we did in our clinic prior. She has good range of mot ion of lumbar spine with minimal loss for extension and flexion within functional limits. Strength of lower extremities is a 4/5 except her hip is 4-/5. She has met her goals as far as independent pro gram, better understanding of posture awareness, decreasing pain by 50 percent, increasing her strength, the patient to walk 30 minutes or greater. We did perform the low back Oswestry disability scal e of 60 percent in using walking, moving around. Her goal status was G8979 CJ 20-39 percent and her goal status was G8980 CI 1-19 percent. At this point, she progressed towards her goals. She will co ntinue with home exercise program on her own. Once again, thank you for this referral. Samy Johnson, PT T: NTS JOB: [id number] <Electronically signed by Samy Johnson > 1026 CC: Rosa Isela Mcgarry MD Signed 26-Feb-2015 EKG ([id number]) Comments: see scanned document of test done to see results reviewed today with patient v Result: [MEASUREMENTS ANALYSIS] Date of Test: 02/26/2015 12:21:51; Heart Rate: 57; IA Interval: 172; QRS: 102; QT Interval: 406; Corrected QT Interval (QTc): 401; P Wave Tatum: 34; QRS Wave Tatum: -4; T Wave Tatum : 26; Blood Pressure: 100/70 [ECG DIAGNOSTIC STATEMENTS] Date of Test: 02/26/2015 12:21:51; Summary: Sinus Bradycardia WITHIN NORMAL LIMITS 31-Jan-2015 Inital Evaluation - PT Result: Comments: See Note; NOTES: [facility] [address] [place] [address]. [address] [place] [address] Fax REHABILITATION SERVICES INITIAL EVALUATION MR#: [id number] Acct: [id number] Name: JOSELUIS MCKAY Rep #: [id number] : 1945 70 From: Samy Johnson Referring Dr.: Samy Rodriguez MD Status: REG RCR Insurance : [employer] MEDICARE Eval Date: MEDICAID Patient's Visit Information JOSELUIS MCKAY is a 70 year old F, referred to Physical Therapy by Samy Rodriguez,, with a diagnosis of fall,sciatica l umbar radiculopathy. Date of Evaluation: 01/29/15 Physical Therapist: Samy Johnson - Visit Plan Frequency: 2x /Week Duration: 4 Weeks - Subjective This 70 y/o female presents to physical th [facility] from low back pain and lateral hip pain. Patient fell 6weeks mowing grass with immediate pain low back and lateral hip pain,thus followed up with DR Bañuelos.Reccomended to see with nuerologist f or dementia,but comprhension and attention not as good.Dr wanted to do MRI of back. Location of low back aida right side.Worse laying down in bed ,elevation from chair,walking 20 min ,standing 5 min. Better heat.Denies parathesia/tingling.H/O of faklling falling due to unsteady. BOWEL/BLADDER good, negative cough/sneeze/strain. PMH: Bilateral hip THR,. VOCATION:retired. SOCIAL: - Objectiv e POSTURE: mild forward posture ,reduce lordosis,mild thoracic kyphosis. GAIT: unsteady sway lateral loss balance but no falling. NEURO:reflexes L3-4,L4-5,L5-S1 1/3,MYTOMES intacts. LUMBAR ROM: flexi on min loss,mod limited extension,side glides min/mod limited. MMT: Quads/ hamstrings 4/5,hip flexion 4-/5,DF 4/5,PF 4-/5. PALPATION:unremarkable. FLEXABILITY: hams min limited/piriformis limited - Sp ecial Tests L/S Slump test left side: Positive L/S Slump test right side: Positive L/S Left Straight Leg Raise: Negative L/S Right Straight Leg Raise: Negative L/S Degenerative Changes - Quadrant T est: Negative - Goals Goal 1:: Independant with HEP. Goal Time Frame: 2-4 Weeks Goal 2:: Indendant with posture for ADL'S. Goal Time Frame: 2-4 Weeks Goal 3:: Decreae pain by 50 % low back pain t o improve function. Goal Time Frame: 2-4 Weeks Goal 4:: Patient to increase strength BLE to improve walking 30 min or greater ,standing 20 min. to improve ADL'S Goal Time Frame: 2-4 Weeks Goal 5:: Patient improve ADL'S ,house work taskks with min limitiation. Goal Time Frame: 2-4 Weeks - Rehabilitation Potential Physical Therapy Diagnosis: This patient presents to physiacl therapy with decrea se stength, unsteasy gait and pain which impaires function. Thus ,benifit from skilled PT to address these impairments. Rehabilitation Potential: Fair - Anticipated Interventions Patient/Client Ins truction: Educate patient on: Condition, Plan of Care For the Purpose of:: To decrease pain, To improve muscle performance and motor function, To increase tolerance to activity/condition/position, To improve safety with gait Therapeutic Exercise to Include: Strength training, Body mechanics, Postural training, Gait and locomotor training, Dynamic Lumbar Stabilization Comment: BLE STRENGTHENING Fo r the Purpose of:: To decrease pain, To improve muscle performance and motor function, To improve ability to perform ADL's, To increase tolerance to activity/condition/position, To improve ability of physical actions for home/community/work/leisure, To improve safety with gait, To improve ability to perform tasks related to life management IF ES: Yes - LOW BACK Cryotherapy (ice pack, ice massage) : Yes Thermo therapy (hot pack): Yes Ultrasound (thermal/non thermal): Yes - THERMAL 1.0 -13-W/CM2 For the Purpose of:: To decrease pain, To decrease swelling/inflammation, To improve nutrient deliv bill to tissue Thank you for the opportunity to evaluate your patient. For Medicare and Medicare HMO plans, please review the plan of care and approve it. It will need to be FAXED BACK to us at for Medicare purposes. Please let me know if there are questions or concerns regarding this plan of care. Physician Signature: Date:____ <Electronically signed by Samy Johnson > 01/31/15 0812 CC: Rosa Isela Mcgarry MD; Samy Rodriguez MD Signed For Medicare only, by signing this I certify the plan of care. Physicians Signature Date 18-Jan-2015 Parathyroid Scan Result: Comments: See Note; NOTES: [facility] Imaging Services [address] [place] [address] Nuclear Medicine Report MR#: [id number] Acct: [id number] Name: JOSELUIS MCKAY Rep #: [id number] : 1945 F 70 From: dS Elmore DO PCP: Rosa Isela Mcgarry MD Status: REG CLI Study: Parathyroid Scan Date of Exam: 01/18/15 Exam# [id number] Ordering Dr: Maxx Mitchell CL INICAL: 70-year-old female with reported history of hypercalcemia. Tc SESTAMIBI DUAL PHASE PARATHYROID SCINTIGRAPHY COMPARISON: Thyroid ultrasound report 11/26/14 FINDINGS: Following the intrav enous administration of 26.7 mCi of Tc sestamibi, image acquisitions of the anterior neck at 20 minutes and 2.0 hours post radiopharmaceutical provision reveal: 1. Immediate static blood pool acquis itions demonstrate distribution of the radiopharmaceutical in the right-left thyroid colloid. 2. Delayed images depict retained radiopharmaceutical concentration visualized in the inferior pole of th e right thyroid bed but otherwise near complete washout of the radiotracer in the previously defined superior pole right right and left thyroid colloid. IMPRESSION: 1. ABNORMAL Tc SESTAMIBI PARATHY ROID IMAGING DUAL PHASE EXAMINATION. 2. There is scintigraphic evidence of an apparent parathyroid adenoma involving the inferior pole of the right thyroid bed. Electronically Signed: Sd alford DO at 11:27 EDT Tel [phone], Service support [phone], CC: Rosa Isela Mcgarry MD; MAXX MITCHELL Equipment Engineer: Signed 07-Dec-2014 Gastric Emptying Study Result: Comments: See Note; NOTES: [facility] Imaging Services [address] [place] [address] Nuclear Medicine Report MR#: [id number] Acct: [id number] Name: JOSELUIS MCKAY [facility] #: [id number] : 1945 F 69 From: Sd Elmore DO PCP: Rosa Isela Mcgarry MD Status: REG CLI Study: Gastric Emptying Study Date of Exam: 12/07/14 Exam# [id number] Ordering Dr: Rosa Isela Mcgarry MD CLINICAL: 69-year-old female with reported history of abdominal bloating. SEMI-SOLID PHASE Tc SULFUR COLLOID GASTRIC EMPTYING STUDY COMPARISON: None available FINDINGS: The patient was adm inistered 1.1 mCi of Tc sulfur colloid mixed with oatmeal and consumed per os. Image acquisitions in the anterior-posterior projections were obtained for 60 minutes. There is prompt visualization of the stomach. There is no gastroesophageal reflux identified. The T1/2 linear fit was calculated to be 32.1 minutes, (Normal: 12-56 minutes). IMPRESSION: 1. NORMAL Tc sulfur colloid semi-solid phase (oatmeal) gastric emptying imaging examination. A. There is normal and preserved semi-solid phase gastric emptying compared to normal controls with maintained first order kinetics throughout all co mponents of the examination. (Rosa et al, J Nucl Med Tech 38: 186, 2010). Electronically Signed: Sd Elmore DO at 22:08 EDT Tel [phone], Service support [phone], CC: Rosa Isela Mcgarry MD Equipment Engineer: Signed 26-Nov-2014 Bilat Scrn Digital AND CAD Result: Comments: See Note; NOTES: [facility] Imaging Services [address] [place] [address] Breast Imaging Report MR#: [id number] Acct: [id number] Name: JOSELUIS MCKAY Romeo #: [id number] : 1945 F 69 From: Suleman Chan MD PCP: Rosa Isela Mcgarry MD Status: REG CLI Study: Bilat Scrn Digital AND CAD Date of Exam: 11/26/14 Exam# [id number] Ordering Dr: Rosa Isela Mcgarry MD MAMMOGRAPHY - BILATERAL SCREENING REASON FOR EXAM: Female, 69 years old. Routine annual screening examination. PERTINENT HISTORY: Non- contributory. TECHNIQUE: Digital examination. Med iolateral oblique (MLO) and craniocaudad (CC) views of both breasts were obtained. CAD: CAD was performed on this study. COMPARISON: Comparison is made with prior study dated November 25, 2011. FINDINGS: Breast Composition: There are scattered areas of fibroglandular density. There are no dominant masses or suspicious calcifications. The previously seen nodul ar density in the retroareolar region of the right breast is not seen at this time. No other significant abnormalities are identified. IMPRESSION: Stable bilat eral screening mammogram. Yearly follow-up recommended. (A) ASSESSMENT CATEGORY: BIRADS Category 2: Benign. A letter regarding these results will be sent to the patient by the facility within 30 days. Approximately 10% of breast cancers are not detected by mammography. A normal mammogram should not delay biopsy of a clinically suspicious abnormality. Carmen ctronically Signed: Suleman Chan MD at 9:19 EDT Tel [phone], Service support [phone], CC: Rosa Isela Mcgarry MD Equipment Engineer: Signed 26-Nov-2014 Thyroid Result: Comments: See Note; NOTES: [facility] Imaging Services [address] [place] [address] Ultrasound Report MR#: [id number] Acct: [id number] Name: JOSELUIS MCKAY Rep # : [id number] : 1945 F 69 From: Suleman Chan MD PCP: Rosa Isela Mcgarry MD Status: REG CLI Study: Thyroid Date of Exam: 11/26/14 Exam# [id number] Ordering Dr: Rosa Isela Mcgarry MD STUDY: THYR OID ULTRASOUND REASON FOR EXAM: Female, 69 years old. The patient has a history of thyroid nodule. TECHNIQUE: Ultrasound evaluation of the thyroid was performed with real-time and static loja-scal e imaging. COMPARISON: None. FINDINGS: RIGHT LOBE: The right lobe of the thyroid gland measures 5 cm x 2.4 cm x 1.8 cm. There is a heterogeneous echotexture. There is a 1.4 cm x 1.7 cm x 0.8 cm solid echogenic nodule in the anterior midportion of the thyroid. LEFT LOBE: The left lobe of the thyroid gland measures 4.7 cm x 2.0 cm x 1.8 cm. There is a hete rogeneous echotexture. There is an 8 mm x 7 mm x 5 mm echogenic nodule in the posterior midportion of the left lobe. ISTHMUS: The isthmus measures 2.0 mm. The regional lymph nodes are normal. ___ IMPRESSION: Single echogenic nodules are seen in both lobes. The thyroid is of heterogeneous echotexture. Electronically Signed: Suleman Chan MD 4 at 14:32 EDT Tel [phone], Service support [phone], CC: Rosa Isela Mcgarry MD Equipment Engineer: Signed 16-Aug-2014 Abdomen Single View Result: Comments: See Note; NOTES: [facility] Imaging Services [address] [place] [address] Radiology Report MR#: [id number] Acct: [id number] Name: JOSELUIS MCKAY Rep #: [id number] : 1945 F 69 From: Man Garcia MD PCP: Rosa Isela Mcgarry MD Status: REG CLI Study: Abdomen Single View Date of Exam: 08/16/14 Exam# [id number] Ordering Dr: Jose Rodas MD BETINA DY: X-RAY - ABDOMEN/PELVIS REASON FOR EXAM: Female, 69 years old. Urinary stone TECHNIQUE: Two AP supine views of the abdomen and pelvis. COMPARISON: CT June 08, 2014 FINDINGS: Normal visualized lung bases. No dilated loops of large or small bowel. Moderate stool. There is no demonstrated free abdominal air. Stones noted on CT scan are not definite ly appreciated. There is an area of increased density representing stool versus stone on the left. Postoperative changes of the abdominal wall. Scoliosis with degenerative change of the spine. Bilat eral hip replacements. IMPRESSION: Moderate stool. Stones seen on prior CT are not definitely appreciated partially due to overlying bowel contents. Ultrasound o r followup CT scan could be performed for further delineation, as warranted clinically. Electronically Signed: Man Garcia MD at 8:36 EDT , Service support , CC: Rosa Isela Mcgarry MD; Jose Rodas MD Equipment Engineer: Signed 05-Jul-2014 Operative Report Result: Comments: See Note; NOTES: [facility] Medical Records Department [address] [place] [address] Operative Report MR#: [id number] Acct: [id number] Name: JOSELUIS MCKAY Rep #: [id number] : 1945 69 From: Jose Rodas MD PCP: Rosa Isela Mcgarry MD Status: [facility] DATE OF SERVICE: 07/04/2014 DATE OF PROCEDURE: July 04, 2014 PREOPERATIVE DIAGNOSIS: Left kidney stone. POSTOPERATIVE DIAGNOSIS: Left kidney stone. PROCEDURES: Left ESWL. TYPE OF ANESTHESIA: General. ANESTHESIOLOGIST: Omar Graham M.D. SPECIMEN REMOVED: None. DRAINS: No ne. INDICATIONS: This is a 69-year-old female who has a large stone in the left kidney causing obstruction. She has a history of recurrent infections. Because of this, I recommended we take her t o surgery and do treatment of the stone with shockwave lithotripsy, possibly have to place a stent if the stone does not break completely. PROCEDURE NOTE: The patient was taken back to the operatin g room after smooth induction of general anesthesia, she was placed supine on the lithotripter table. We then localized the stone in the F2 focal point of the lithotripter. Once the stone was localiz ed, we applied 3000 shock waves to the stone at a rate of 90, power up to 7. At the completion of the treatment, the stone had pulverized into little tiny pieces. No major fragments could be seen under fluoroscopy, so because of this, I decided not to leave a stent. The patient's anesthetic was reversed and she is being taken back to PACU in good condition. Stone parameters about 13 mm stone , about 1000 Hounsfield units and about 9 cm from the skin. Jose Rodas MD T: NTS JOB: [id number] 07/05/14 0726 <Electronically signed by Jose Rodas MD> Date __ Jose Rodas MD CC: Rosa Isela Mcgarry MD; Jose Rodas MD Date Dictated: 07/04/141106 Date Transcribed: 07/04/141106 Equipment Engineer: Signed 04-Jul-2014 Operative Report Result: Comments: See Note; NOTES: [facility] Medical Records Department [address] [place] [address] Operative Report 07/04/14 110 MR#: [id number] Acct: [id number] Name: JOSELUIS PANDYA Rep #: [id number] : 1945 69 From: Jose Rodas MD PCP: Rosa Isela Mcgarry MD Status: REG [facility] Y Location: [place] [address] Report of Operation Date of Procedure: 07/04/14 Pre-Ope rative Diagnosis: left kidney stone Post-Operative Diagnosis: same Surgery/Procedure Performed:: Left ESWL Type of Anesthesia:: General Anesthesiologist: Weeman,Omar Specimen's removed: none Drains : none - Admit VTE Documentation VTE Present on Admission: Yes VTE Mechan Device Prophylaxis: Calf SCD-Sequential Compression Device VTE Pharm Prophylaxis ordered?: No Reason prophylaxis not order ed:: Surgical contraindication 07/04/14 1104 <Electronically signed by Jose Rodas MD> Date Jose Rodas MD CC: Rosa Isela Mcgarry MD; Jose Rodas MD Signed 04-Jul-2014 Discharge Instruction Result: Comments: See Note; NOTES: [facility] Medical Records Department [address] [place] [address] Instructions for Home/Discharge Instructions 07/04/14 1100 MR#: [id number] Acc t: [id number] Name: JOSELUIS MCKAY Rep #: [id number] : 1945 69 From: Jose Rodas MD PCP: Rosa Isela Mcgarry MD Status: REG [facility] Discharge Diet: No Restrictions Discharge Activity: R eturn to Normal Activity, May Not Drive - for 2 days., May not drive while taking narcotic pain medications. Return to work on:: 07/09/14 May shower in (days): 1 Additional Activity Instructions:: I f you have any problems call [phone] and ask for your doctor to be paged. Please be aware that pain medications may cause nausea. You should typically eat light foods as you take your pain medic ation. Pain medication may cause constipation, if this is a problem for you, please discuss with your doctor. Call your doctor if your incision/area has: Continuous Slow Oozing, Sudden Increased Blee ding, Increased Pain/ Swelling, Increased Redness, Foul Smelling Discharge, Swelling at the incision site Call your doctor if you observe: Fever of 101 or Higher, Uncontrolled pain Allergies/Adverse Reactions: Allergies codeine Adverse Reaction (Mild, Verified 03/15/14 14:10) Upset Stomach hydroxyzine HCl [From Vistaril] Adverse Reaction (Mild, Verified 03/15/14 14:10) Upset Stomach hydroxyz ine pamoate [From Vistaril] Adverse Reaction (Mild, Verified 03/15/14 14 :10) Upset Stomach Medications to take at Discharge Amlodipine [Norvasc] 10 mg PO DAILY BusPIRone [Buspar] 10 mg PO 5X/DAY Lamotrigine [Lamictal] 200 mg PO QHS Lovastatin [Mevacor] 40 mg PO DAILY Gabapentin [Neurontin] 400 mg PO TID Levothyroxine [Synthroid] 88 mcg PO DAILY Sertraline HCl [Zoloft] 50 mg PO DAILY Janusz tropine [Cogentin] 2 mg PO PRN PRN Metformin HCl [Glucophage] 500 mg PO BIDCM Omeprazole [Prilosec] 40 mg PO DAILY Oxybutynin [Ditropan] 5 mg PO BID Please Follow Up With: Jose Rodas When : in 2 weeks, please call to make an appointment. 07/04/14 1101 <Electronically signed by Jose Rodas MD> Date Jose Rodas MD CC: Rosa Isela Mcgarry MD 08-Jun-2014 Abdomen/Pelvis without Cont Result: Comments: See Note; NOTES: [facility] Imaging Services [address] [place] [address] CAT Scan Report MR#: [id number] Acct: [id number] Name: JOSELUIS MCKAY Rep #: [id number] : 1945 F 69 From: Escobar Marroquin DO PCP: Rosa Isela Mcgarry MD Status: REG CLI Study: Abdomen/Pelvis without Cont Date of Exam: 06/08/14 Exam# [id number] [facility]ing Dr: Jose [facility]as [facility] ABDOMEN AND PELVIS WITHOUT CONTRAST REASON FOR EXAM: Female, 69 years old. Kidney stones RADIATION DOSAGE (If Supplied By Facility): CTDIvol = ( 15.07 ) mGy, DLP = ( 718.80 ) mGycm TECHNI QUE: Transaxial images were obtained from the dome of the diaphragm to the symphysis pubis without oral contrast, and without intravenous contrast. Sagittal and coronal images were reconstructed. CO MPARISON: October 21, 2012. FINDINGS: The visualized lung bases demonstrate interstitial prominence. The visualized portions of the heart are within normal limits. Normal liver. Normal gallbladder and extrahepatic biliary system. Normal spleen. Normal pancreas. Normal bilateral adrenal glands. Stable cysts of the right kidney. Stable cysts of the left kidney . Left hydronephrosis with left renal stones. Largest stone is in the left renal pelvis measuring 1.4 cm causing obstruction at the UPJ. Mild left perinephric stranding. Normal visualized stomach. Mild ileus of the small intestine. Diffuse fecal retention in the colon. Rectal wall thickening requiring clinical correlation. The appendix is visualized and appears normal. Prior ventral hernia phillips rgery of the anterior abdominal aorta with a mesh in place. Normal inferior vena cava. Normal retroperitoneum. Normal urinary bladder. Normal abdominal wall. Bilateral hip prosthesis with artifact limiting lower pelvic images. Degenerative vertebral changes. IMPRESSION: Mild small bowel ileus. Bilateral renal cysts. Left hydronephrosis with stones. Obstr uctive stone at the left UPJ. Possible rectal wall thickening. Electronically Signed: Escobar Marroquin DO at 9:48 EST Tel [phone], Service support [phone], CC: Rosa Isela Mcgarry MD; Jose Rodas MD Equipment Engineer: Signed 05-Jun-2014 PT Discharge Summary Result: Comments: See Note; NOTES: [facility] [facility]. [address] [place], [place] [address] Fax REHABILITATION SERVICES DISCHARGE SUMMARY MR#: [id number] Acct: [id number] Name: JOSELUIS MCKAY Rep #: [id number] : 1945 69 From: Samy Johnson Referring Dr.: Rosa Isela Mcgarry MD Status: REG RCR Eval Date: Discharge Date: DATE OF SERVICE: REFERRING PHYSICIAN: Dr. Rosa Isela Mcgarry. This patient by the name Joseluis Mckay who was born on 1945 was referred to physical therapy with elly gnosis of hip pain. The patient received a total number of 8 physical therapy sessions focused on home exercise program, range of motion, strengthening exercises, quad, hamstrings and hip, modalitie s. At time of discharge, the patient reports 75 percent better overall. She has minimal complaints of pain about 2/ 10. There are periods of time where she had 0/10 pain. One of her goals is transiti on to a [facility] under [employer]. We provided the patient with some exercises, which she can do on her own. At this point, the patient is doing very well. She is discharged from our are. She improved her quality of gait with less pain, decreased pain by at least 75 percent, improving. She is going to be able to perform daily functional activities, standing, walking range of madelyn on of her hip flexors are 4-/5. Quadriceps, hamstrings are 4/5, which is improved from initial evaluation. Range of motion minimal complaints of pain. At this point, she is discharged from our care. She will resume her exercise here in the [employer]. Otherwise, once again, thank you for this referral. Samy Johnson, PT T: NTS JOB: [id number] <Electronically signed by Samy Johnson > 06/05/14 1530 CC: Signed 31-May-2014 Kidney and Bladder Result: Comments: See Note; NOTES: [facility] Imaging Services [address] [place] [address] Ultrasound Report MR#: [id number] Acct: [id number] Name: JOSELUIS MCKAY Rep #: [id number] : 1945 F 69 From: Jesus Espinoza DO PCP: Rosa Isela Mcgarry MD Status: REG CLI Study: Kidney and Bladder Date of Exam: 05/31/14 Exam# [id number] Ordering Dr: Jose Rodas MD ST UDY: RENAL ULTRASOUND - COMPLETE REASON FOR EXAM: Female, 69 years old. Urinary tract infection TECHNIQUE: Ultrasound evaluation of the kidneys was performed with real-time and static valladares-scale im aging. COMPARISON: CT October 21, 2012 FINDINGS: RIGHT KIDNEY: Normal location of the right kidney, which is normal in size. The right kidney measures 9.4 x 5.2 x 5.1 cm. There is a normal cortex of the right kidney. The renal cortex measures 1.2 cm. 3 tiny cysts are seen within the right kidney, the largest measuring one CM in maximum dimension. There is a 5 mm calculus within the mid to superior pole of the right kidney. There is no right hydronephrosis. DISTAL RIGHT URETER: There is non-visualization of the distal right ureter. There is no demonstrat ed right ureterovesical junction calculus. There is a visualized right ureteral jet. LEFT KIDNEY: Normal location of the left kidney, which is normal in size. The left kidney measures 10.9 x 4.8 x 6 .2 cm. There is a normal cortex of the left kidney. The renal cortex measures 2.1 cm. There is an 8 mm cyst within the left kidney. 3 nonobstructing renal calculi are seen within the left kidney, the largest measuring approximately 6 mm. There is mild hydronephrosis of the left kidney. DISTAL LEFT URETER: There is non-visualization of the distal left ureter. There is no demonstrated left ureter ovesical junction calculus. There is a visualized left ureteral jet. AORTA: Not imaged I.V.C.: Not imaged BLADDER: The distended urinary bladder has a volume of 490 ml. The empty urinary bladder has a volume of 84 ml. There is a normal wall thickness of the distended urinary bladder. There is no demonstrated mass within the urinary bladder. There are no demonstrated bladder calculi. IMPRESSION: 1. Small bilateral renal cysts. 2. Small bilateral renal calculi. 3. Mild left hydronephrosis. Electronically Signed: Jesus Espinoza DO a t 7:44 EST Tel , Service support [phone], CC: Rosa Isela Mcgarry MD; Jose Rodas MD Equipment Engineer: Signed 02-May-2014 Inital Evaluation - PT Result: Comments: See Note; NOTES: [facility] [address] [facility] [place] [address] Fax REHABILITATION SERVICES INITIAL EVALUATION MR#: [id number] Acct: [id number] Name: JOSELUIS MCKAY Rep #: [id number] : 1945 69 From: Samy Johnson Referring Dr.: Rosa Isela Mcgarry MD Status: REG RCR Insurance : [employer] Evoh Date: MEDICAID DATE OF SERVICE: REFERRING PHYSICIAN: Dr. Rosa Isela Mcgarry. SUBJECTIVE: This patient by the name Joseluis Mckay was born on 1945 was ref erred to physical therapy with a diagnosis of right hip pain. The patient only about 6 weeks ago, she was sitting in the chair, stood up quickly turned, landed on her right hip. She continued to mercer ve pain. She followed up with physician. X-rays were negative. Referred to physical therapy. She states that she cannot walk more than 5 minutes without pain in her right leg, right lateral hip area , as well as standing for an extended period of time makes increased soreness. She has difficulty with steps as well. She is reporting hip replacements 2002, received prior physical therapy at that time. She reports that the findings from the x-rays showed a contusion. There is no dislocation or fracture she stated from the physician. She states that she denies numbness/tingling. His goals ar e to have no more pain and be able to walk that she used to without any discomfort. PAST MEDICAL HISTORY: Bilateral hip replacement, degenerative joint disease, osteoarthritis, high blood pressur e, diabetes, parathyroid, OA, degenerative joint disease, degenerative disk disease, gallbladder, panic attacks and anxiety. The patient also appears to have some type athetoid type of movement. S OCIAL HISTORY: Apparently, she will be getting currently. She is , but plans to be from her . VOCATION: Retired. OBJECTIVE: POSTURE: The patient stands with pos terior pelvic tilt, hips, knees slightly flexed forward, slight valgus position. PALPATION: The patient has tenderness of right lateral hip. NEUROLOGIC: Denies numbness/tingling. GAIT ASSESSMENT: T he patient ambulates with a lateral sway, leans to the right side during the stance time with decreased swing phase, right compared to left as well as decreased stance time with a good minus balance on level surfaces. NEUROLOGICAL: She denies any numbness/tingling. Reflexes not tested. GAIT ASSESSMENT: She does have some athetoid type of movements. RANGE OF MOTION: Active range of motion, hip f lexion 90 degrees, left is 100 degrees, abduction 40 degrees, internal rotation not tested. Range of motion is 0-25 degrees knee flexion. Flexibility not tested. STRENGTH: Left lower extremity is g rossly 4/5 for quad and hamstrings, hip flexion 4-/5, hip abduction 4-/5, comparison to the right side, quad and hamstrings are 4-/5. Hip internal rotators not tested. Hip abductors are 3/5 flexion 3+/5 with slight pain. SPECIAL TESTS: Trendelenburg lateral sway to the right side. Passive motion of right hip, somewhat guarded when patient flexes to 90 degrees. OTHER SPECIAL TESTS: Unable to make stand, leans to the side of the stance leg. Symmetries, the patient does have a slight leg discrepancy asymmetrical. FUNCTIONAL TESTS: Squats not appropriate. Stairs 1 step at a time with r ail transfers independent. ASSESSMENT: The patient will benefit from skilled physical therapy due to right hip pain due to the patient falling without apparent reason more or less of a mechanical f all, moving abruptly. The patient will benefit from skilled physical therapy to decrease her pain, to improve her strength, to improve her mobility. PROBLEM LIST: 1. Decreased home exercise progr am. 2. Increased pain of right hip. 3. Decreased strength. 4. Decreased function. 5. Decreased gait. GOALS: 1. The patient will be independent with a home exercise program with strengthening. 2 . Decreased pain of right hip by 50% or greater to improve function, standing, walking. 3. The patient to increase strength of right hip and quad, hamstrings by half a grade to improve function, enabl ing the patient to walk better, better quality of gait. 4. The patient will display the ability to return prior level of activity to be able to stand extended distances, walk community distances with less pain with minimal limitations. 5. Normalize gait pattern 80% of the time with sitting, walking, standing on level/unlevel surfaces. PLAN: Plan of care was reviewed with the patient. We discus sed with the patient basic anatomy of the right hip and possible mechanisms of pain. At this point, Dr states patient does has a contusion, . Our goals are to decrease the patient's pain. We did pro vide the patient some gentle exercises to include bridging, hip abduction and adduction with orange Theraband 2 sets 10 repetition. This patient received electrical stimulation x15 minutes with cold pack or moist hot pack and left side lying position. Plan to see this patient twice a week for 4 weeks focusing on home exercise program, gait training, PREs, quad, hamstrings and hip range of motio n and balancing strengthening, NuStep, patient education. Samy Johnson, PT T: VIKY JOB: [id number] <Electronically signed by Samy Johnson > 05/02/14 0838 CC: DD: 05/01 Signed For Medicare only, by signing this I certify the plan of care. Physicians Signature Date 07-Sep-2013 Knee 4 or More Views Result: Comments: See Note; NOTES: [facility] Imaging Services [address] [place] [address] Radiology Report MR#: [id number] Acct: [id number] Name: JOSELUIS MCKAY Rep #: [id number] : 1945 F 68 From: Suleman Chan MD PCP: Rosa Isela Mcgarry MD Status: REG CLI Study: Knee 4 or More Views Date of Exam: 09/07/13 Exam# [id number] Ordering Dr: Rosa Isela Mcgarry MD STUDY: X-RAY - RIGHT KNEE REASON FOR EXAM: Female, 68 years old. Knee pain. TECHNIQUE: 4 view(s) of the knee. COMPARISON: None. FINDINGS: Normal visualized distal femur. Normal visualized proximal tibia and fibula. Normal proximal tibiofibular articulation. Normal medial femorotibial compartment. Normal lateral femorotibial compartment. Normal patellof emoral articulation. Chondrocalcinosis. Small joint effusion. IMPRESSION: Chondrocalcinosis. Small joint effusion. Electronically Signed: Suleman Chan MD at 14:43 EDT Tel [phone], Service support [phone], RAD/Knee 4 or More Views IMPRESSION: Chondrocalcinosis. Small joint effusion. El ectronically Signed: Suleman Chan MD at 14:43 EDT Tel [phone], Service support [phone], CC: Rosa Isela Mcgarry MD Equipment Engineer: Signed Family History Unknown Family Member Name Dates Details Father Comments: prostate cancer, dementia, stroke Status: Active Mother Comments: still living glaucoma, hx. shingles in her eye, Type II diabetes Status: Active Social History Name Dates Details Caffeine Use Comments: 1 qd Status: Active Current Work/Study Status: Retired. Comments: lost job 2-11 related to memory. 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 Status: Active Exercise History: Does not exercise. Status: Active Living Situation: Lives with spouse. Comments: , she also has 2 daughters, one of their spouses and 1 grandchild Status: Active No Drug Use Status: Active Non Drinker/No Alcohol Use Status: Active Non Smoker/No Tobacco Use Status: Active Tobacco use: Never smoker. Status: Active Smoking Status Name Dates Details Never smoker Vital Signs Date Test Result Details [id number] Temperature 98.2 f Comments: Method: Temporal Pulse 88 /min Comments: Pattern: Regular Respiration Rate 16 /min Comments: Pattern: Unlabored O2 SAT 92 % Comments: Room air BP Systolic 122 mm[Hg] Comments: Patient Position: Sitting; Cuff Location: Left Arm; Cuff Size: Standard BP Diastolic 82 mm[Hg] Comments: Patient Position: Sitting; Cuff Location: Left Arm; Cuff Size: Standard Weight 171.25 lb Height 61 in Body Mass Index Calculated 32.36 kg/m2 Body Surface Area Calculated 1.77 m2 :43 Comments: hearing wnlDr. Midiol and had a glaucoma test done Temperature 97.2 f Comments: Method: Axillary Pulse 83 /min Comments: Pattern: Regular Respiration Rate 18 /min Comments: Pattern: Unlabored O2 SAT 97 % Comments: Room air BP Systolic 122 mm[Hg] Comments: Patient Position: Sitting; Cuff Location: Left Arm; Cuff Size: Large BP Diastolic 88 mm[Hg] Comments: Patient Position: Sitting; Cuff Location: Left Arm; Cuff Size: Large Weight 167.25 lb Height 61 in Body Mass Index Calculated 31.6 kg/m2 Body Surface Area Calculated 1.75 m2 :25 Temperature 97.4 f Comments: Method: Temporal Pulse 75 /min Comments: Pattern: Regular Respiration Rate 18 /min Comments: Pattern: Unlabored O2 SAT 94 % Comments: Room air BP Systolic 158 mm[Hg] Comments: Patient Position: Sitting; Cuff Location: Left Arm; Cuff Size: Standard BP Diastolic 82 mm[Hg] Comments: Patient Position: Sitting; Cuff Location: Left Arm; Cuff Size: Standard Weight 167 lb Height 61 in Body Mass Index Calculated 31.55 kg/m2 Body Surface Area Calculated 1.75 m2 :36 Temperature 97.5 f Comments: Method: Temporal Pulse 74 /min Comments: Pattern: Regular Respiration Rate 20 /min Comments: Pattern: Unlabored O2 SAT 97 % Comments: Room air BP Systolic 114 mm[Hg] Comments: Patient Position: Sitting; Cuff Location: Left Arm; Cuff Size: Standard BP Diastolic 74 mm[Hg] Comments: Patient Position: Sitting; Cuff Location: Left Arm; Cuff Size: Standard Weight 167 lb Height 61 in Body Mass Index Calculated 31.55 kg/m2 Body Surface Area Calculated 1.75 m2 :56 Temperature 98 f Comments: Method: Tympanic Pulse 85 /min Comments: Pattern: Regular Respiration Rate 18 /min Comments: Pattern: Unlabored O2 SAT 98 % Comments: Room air BP Systolic 122 mm[Hg] Comments: Patient Position: Sitting; Cuff Location: Left Arm; Cuff Size: Standard BP Diastolic 64 mm[Hg] Comments: Patient Position: Sitting; Cuff Location: Left Arm; Cuff Size: Standard Weight 164.375 lb Height 61 in Body Mass Index Calculated 31.06 kg/m2 Body Surface Area Calculated 1.74 m2 :58 Pulse 79 /min Comments: Pattern: Regular Respiration Rate 18 /min Comments: Pattern: Unlabored O2 SAT 98 % Comments: Room air BP Systolic 128 mm[Hg] Comments: Patient Position: Sitting; Cuff Location: Left Arm; Cuff Size: Large BP Diastolic 78 mm[Hg] Comments: Patient Position: Sitting; Cuff Location: Left Arm; Cuff Size: Large Weight 166 lb Height 61 in Body Mass Index Calculated 31.37 kg/m2 Body Surface Area Calculated 1.75 m2 :25 Pulse 70 /min Comments: Pattern: Regular Respiration Rate 18 /min Comments: Pattern: Unlabored O2 SAT 96 % Comments: Room air BP Systolic 118 mm[Hg] Comments: Patient Position: Sitting; Cuff Location: Left Arm; Cuff Size: Large BP Diastolic 74 mm[Hg] Comments: Patient Position: Sitting; Cuff Location: Left Arm; Cuff Size: Large Weight 162.25 lb Height 61 in Body Mass Index Calculated 30.66 kg/m2 Body Surface Area Calculated 1.73 m2 :49 Pulse 81 /min Comments: Pattern: Regular Respiration Rate 18 /min Comments: Pattern: Unlabored O2 SAT 98 % Comments: Room air BP Systolic 124 mm[Hg] Comments: Patient Position: Sitting; Cuff Location: Left Arm; Cuff Size: Standard BP Diastolic 82 mm[Hg] Comments: Patient Position: Sitting; Cuff Location: Left Arm; Cuff Size: Standard Weight 166.25 lb Height 61 in Body Mass Index Calculated 31.41 kg/m2 Body Surface Area Calculated 1.75 m2 :48 Pulse 92 /min Comments: Pattern: Regular Respiration Rate 18 /min Comments: Pattern: Unlabored O2 SAT 94 % Comments: Room air BP Systolic 118 mm[Hg] Comments: Patient Position: Sitting; Cuff Location: Left Arm; Cuff Size: Large BP Diastolic 68 mm[Hg] Comments: Patient Position: Sitting; Cuff Location: Left Arm; Cuff Size: Large Weight 167 lb Height 61 in Body Mass Index Calculated 31.55 kg/m2 Body Surface Area Calculated 1.75 m2 :11 Pulse 79 /min Comments: Pattern: Regular Respiration Rate 18 /min Comments: Pattern: Unlabored O2 SAT 95 % Comments: Room air BP Systolic 126 mm[Hg] Comments: Patient Position: Sitting; Cuff Location: Left Arm; Cuff Size: Standard BP Diastolic 84 mm[Hg] Comments: Patient Position: Sitting; Cuff Location: Left Arm; Cuff Size: Standard Weight 167.125 lb Height 61 in Body Mass Index Calculated 31.58 kg/m2 Body Surface Area Calculated 1.75 m2 [id number] Temperature 97.7 f Pulse 83 /min Comments: Pattern: Regular Respiration Rate 18 /min Comments: Pattern: Unlabored O2 SAT 95 % Comments: Room air BP Systolic 132 mm[Hg] Comments: Patient Position: Sitting; Cuff Location: Left Arm; Cuff Size: Standard BP Diastolic 88 mm[Hg] Comments: Patient Position: Sitting; Cuff Location: Left Arm; Cuff Size: Standard Weight 168.25 lb Height 61 in Body Mass Index Calculated 31.79 kg/m2 Body Surface Area Calculated 1.76 m2 :13 Pulse 95 /min Comments: Pattern: Regular Respiration Rate 18 /min Comments: Pattern: Unlabored O2 SAT 96 % Comments: Room air BP Systolic 122 mm[Hg] Comments: Patient Position: Sitting; Cuff Location: Left Arm; Cuff Size: Large BP Diastolic 82 mm[Hg] Comments: Patient Position: Sitting; Cuff Location: Left Arm; Cuff Size: Large Weight 168.25 lb Height 61 in Body Mass Index Calculated 31.79 kg/m2 Body Surface Area Calculated 1.76 m2 :06 Temperature 98.7 f Comments: Method: Temporal Pulse 18 /min Comments: Pattern: Regular Respiration Rate 18 /min Comments: Pattern: Unlabored O2 SAT 96 % Comments: Room air BP Systolic 132 mm[Hg] Comments: Patient Position: Sitting; Cuff Location: Left Arm; Cuff Size: Large BP Diastolic 96 mm[Hg] Comments: Patient Position: Sitting; Cuff Location: Left Arm; Cuff Size: Large Weight 169 lb Height 61 in Body Mass Index Calculated 31.93 kg/m2 Body Surface Area Calculated 1.76 m2 [id number] Pulse 78 /min Comments: Pattern: Regular Respiration Rate 18 /min Comments: Pattern: Unlabored O2 SAT 94 % Comments: Room air BP Systolic 132 mm[Hg] Comments: Patient Position: Sitting; Cuff Location: Left Arm; Cuff Size: Standard BP Diastolic 78 mm[Hg] Comments: Patient Position: Sitting; Cuff Location: Left Arm; Cuff Size: Standard Weight 169 lb Height 61 in Body Mass Index Calculated 31.93 kg/m2 Body Surface Area Calculated 1.76 m2 :58 Pulse 74 /min Comments: Pattern: Regular Respiration Rate 18 /min Comments: Pattern: Unlabored O2 SAT 98 % Comments: Room air BP Systolic 118 mm[Hg] Comments: Patient Position: Sitting; Cuff Location: Left Arm; Cuff Size: Large BP Diastolic 68 mm[Hg] Comments: Patient Position: Sitting; Cuff Location: Left Arm; Cuff Size: Large Weight 169 lb Height 61 in Body Mass Index Calculated 31.93 kg/m2 Body Surface Area Calculated 1.76 m2 :48 Temperature 98.5 f Pulse 88 /min Comments: Pattern: Regular Respiration Rate 16 /min Comments: Pattern: Unlabored O2 SAT 95 % Comments: Room air BP Systolic 172 mm[Hg] Comments: Patient Position: Sitting; Cuff Location: Left Arm; Cuff Size: Standard BP Diastolic 82 mm[Hg] Comments: Patient Position: Sitting; Cuff Location: Left Arm; Cuff Size: Standard Weight 169 lb Height 61 in Body Mass Index Calculated 31.93 kg/m2 Body Surface Area Calculated 1.76 m2 :43 Pulse 60 /min Comments: Pattern: Regular Respiration Rate 18 /min Comments: Pattern: Unlabored O2 SAT 95 % Comments: Room air BP Systolic 128 mm[Hg] Comments: Patient Position: Sitting; Cuff Location: Left Arm; Cuff Size: Large BP Diastolic 80 mm[Hg] Comments: Patient Position: Sitting; Cuff Location: Left Arm; Cuff Size: Large Weight 169.125 lb Height 61 in Body Mass Index Calculated 31.96 kg/m2 Body Surface Area Calculated 1.76 m2 :22 Temperature 97.6 f Comments: Method: Temporal Pulse 78 /min Comments: Pattern: Regular Respiration Rate 20 /min Comments: Pattern: Unlabored O2 SAT 97 % Comments: Room air BP Systolic 120 mm[Hg] Comments: Patient Position: Sitting; Cuff Location: Left Arm; Cuff Size: Standard BP Diastolic 80 mm[Hg] Comments: Patient Position: Sitting; Cuff Location: Left Arm; Cuff Size: Standard Weight 160 lb Height 61 in Body Mass Index Calculated 30.23 kg/m2 Body Surface Area Calculated 1.72 m2 :23 Comments: hearing wnlDr. Midiol and had a glaucoma test done Pulse 72 /min Comments: Pattern: Regular Respiration Rate 18 /min Comments: Pattern: Unlabored O2 SAT 98 % Comments: Room air BP Systolic 118 mm[Hg] Comments: Patient Position: Sitting; Cuff Location: Left Arm; Cuff Size: Standard BP Diastolic 68 mm[Hg] Comments: Patient Position: Sitting; Cuff Location: Left Arm; Cuff Size: Standard Weight 162.5 lb Height 61 in Body Mass Index Calculated 30.7 kg/m2 Body Surface Area Calculated 1.73 m2 [id number] Pulse 65 /min Comments: Pattern: Regular Respiration Rate 18 /min Comments: Pattern: Unlabored O2 SAT 98 % Comments: Room air BP Systolic 128 mm[Hg] Comments: Patient Position: Sitting; Cuff Location: Left Arm; Cuff Size: Large BP Diastolic 62 mm[Hg] Comments: Patient Position: Sitting; Cuff Location: Left Arm; Cuff Size: Large Weight 165 lb Height 61 in Body Mass Index Calculated 31.18 kg/m2 Body Surface Area Calculated 1.74 m2 :53 Temperature 97.7 f Pulse 70 /min Comments: Pattern: Regular Respiration Rate 16 /min Comments: Pattern: Unlabored O2 SAT 95 % Comments: Room air BP Systolic 134 mm[Hg] Comments: Patient Position: Sitting; Cuff Location: Left Arm; Cuff Size: Standard BP Diastolic 80 mm[Hg] Comments: Patient Position: Sitting; Cuff Location: Left Arm; Cuff Size: Standard Weight 161 lb Height 61 in Body Mass Index Calculated 30.42 kg/m2 Body Surface Area Calculated 1.72 m2 :51 Pulse 78 /min Comments: Pattern: Regular Respiration Rate 17 /min Comments: Pattern: Unlabored O2 SAT 94 % Comments: Room air BP Systolic 131 mm[Hg] Comments: Patient Position: Sitting; Cuff Location: Left Arm; Cuff Size: Standard BP Diastolic 85 mm[Hg] Comments: Patient Position: Sitting; Cuff Location: Left Arm; Cuff Size: Standard Weight 160 lb Height 61 in Body Mass Index Calculated 30.23 kg/m2 Body Surface Area Calculated 1.72 m2 :34 Pulse 80 /min Comments: Pattern: Regular Respiration Rate 18 /min Comments: Pattern: Unlabored O2 SAT 97 % Comments: Room air BP Systolic 118 mm[Hg] Comments: Patient Position: Sitting; Cuff Location: Left Arm; Cuff Size: Large BP Diastolic 78 mm[Hg] Comments: Patient Position: Sitting; Cuff Location: Left Arm; Cuff Size: Large Weight 161.125 lb Height 61 in Body Mass Index Calculated 30.44 kg/m2 Body Surface Area Calculated 1.72 m2 :25 Pulse 87 /min Comments: Pattern: Regular Respiration Rate 18 /min Comments: Pattern: Unlabored O2 SAT 95 % Comments: Room air BP Systolic 132 mm[Hg] Comments: Patient Position: Sitting; Cuff Location: Left Arm; Cuff Size: Large BP Diastolic 82 mm[Hg] Comments: Patient Position: Sitting; Cuff Location: Left Arm; Cuff Size: Large Weight 162.125 lb Height 61 in Body Mass Index Calculated 30.63 kg/m2 Body Surface Area Calculated 1.73 m2 :36 Pulse 76 /min Comments: Pattern: Regular Respiration Rate 18 /min Comments: Pattern: Unlabored O2 SAT 96 % Comments: Room air BP Systolic 124 mm[Hg] Comments: Patient Position: Sitting; Cuff Location: Left Arm; Cuff Size: Standard BP Diastolic 82 mm[Hg] Comments: Patient Position: Sitting; Cuff Location: Left Arm; Cuff Size: Standard Weight 161.125 lb Height 61 in Body Mass Index Calculated 30.44 kg/m2 Body Surface Area Calculated 1.72 m2 :59 Pulse 78 /min Comments: Pattern: Regular Respiration Rate 18 /min Comments: Pattern: Unlabored O2 SAT 96 % Comments: Room air BP Systolic 128 mm[Hg] Comments: Patient Position: Sitting; Cuff Location: Left Arm; Cuff Size: Large BP Diastolic 82 mm[Hg] Comments: Patient Position: Sitting; Cuff Location: Left Arm; Cuff Size: Large Weight 161.125 lb Height 61 in Body Mass Index Calculated 30.44 kg/m2 Body Surface Area Calculated 1.72 m2 :08 Pulse 62 /min Comments: Pattern: Regular Respiration Rate 18 /min Comments: Pattern: Unlabored O2 SAT 95 % Comments: Room air BP Systolic 138 mm[Hg] Comments: Patient Position: Sitting; Cuff Location: Left Arm; Cuff Size: Large BP Diastolic 80 mm[Hg] Comments: Patient Position: Sitting; Cuff Location: Left Arm; Cuff Size: Large Weight 161.125 lb Height 61 in Body Mass Index Calculated 30.44 kg/m2 Body Surface Area Calculated 1.72 m2 :42 Pulse 76 /min Comments: Pattern: Regular Respiration Rate 18 /min Comments: Pattern: Unlabored O2 SAT 98 % Comments: Room air BP Systolic 124 mm[Hg] Comments: Patient Position: Sitting; Cuff Location: Left Arm; Cuff Size: Large BP Diastolic 80 mm[Hg] Comments: Patient Position: Sitting; Cuff Location: Left Arm; Cuff Size: Large Weight 159 lb Height 61 in Body Mass Index Calculated 30.04 kg/m2 Body Surface Area Calculated 1.71 m2 :56 Temperature 98.5 f Pulse 58 /min Comments: Pattern: Regular Respiration Rate 18 /min Comments: Pattern: Unlabored O2 SAT 96 % Comments: Room air BP Systolic 122 mm[Hg] Comments: Patient Position: Sitting; Cuff Location: Left Arm; Cuff Size: Standard BP Diastolic 64 mm[Hg] Comments: Patient Position: Sitting; Cuff Location: Left Arm; Cuff Size: Standard Weight 157.375 lb Height 61 in Body Mass Index Calculated 29.74 kg/m2 Body Surface Area Calculated 1.71 m2 :35 Temperature 97.6 f Comments: Method: Temporal Pulse 62 /min Comments: Pattern: Regular Respiration Rate 15 /min Comments: Pattern: Unlabored BP Systolic 130 mm[Hg] Comments: Patient Position: Sitting; Cuff Location: Left Arm; Cuff Size: Standard BP Diastolic 74 mm[Hg] Comments: Patient Position: Sitting; Cuff Location: Left Arm; Cuff Size: Standard Weight 157.375 lb Height 61 in Body Mass Index Calculated 29.74 kg/m2 Body Surface Area Calculated 1.71 m2 :00 Temperature 98.3 f Pulse 86 /min Comments: Pattern: Regular Respiration Rate 17 /min Comments: Pattern: Unlabored O2 SAT 96 % Comments: Room air BP Systolic 118 mm[Hg] Comments: Patient Position: Sitting; Cuff Location: Left Arm; Cuff Size: Standard BP Diastolic 76 mm[Hg] Comments: Patient Position: Sitting; Cuff Location: Left Arm; Cuff Size: Standard Weight 137.375 lb Height 61 in Body Mass Index Calculated 25.96 kg/m2 Body Surface Area Calculated 1.61 m2 :42 Temperature 96.1 f Pulse 69 /min Comments: Pattern: Regular Respiration Rate 17 /min Comments: Pattern: Unlabored O2 SAT 98 % Comments: Room air BP Systolic 116 mm[Hg] Comments: Patient Position: Sitting; Cuff Location: Left Arm; Cuff Size: Standard BP Diastolic 74 mm[Hg] Comments: Patient Position: Sitting; Cuff Location: Left Arm; Cuff Size: Standard Weight 137.375 lb Height 61 in Body Mass Index Calculated 25.96 kg/m2 Body Surface Area Calculated 1.61 m2 :20 Temperature 97.9 f Pulse 69 /min Comments: Pattern: Regular Respiration Rate 17 /min Comments: Pattern: Unlabored O2 SAT 97 % Comments: Room air BP Systolic 124 mm[Hg] Comments: Patient Position: Sitting; Cuff Location: Left Arm; Cuff Size: Standard BP Diastolic 82 mm[Hg] Comments: Patient Position: Sitting; Cuff Location: Left Arm; Cuff Size: Standard Weight 137.375 lb Height 61 in Body Mass Index Calculated 25.96 kg/m2 Body Surface Area Calculated 1.61 m2 :36 Temperature 98.1 f Pulse 66 /min Comments: Pattern: Regular Respiration Rate 18 /min Comments: Pattern: Unlabored O2 SAT 98 % Comments: Room air BP Systolic 118 mm[Hg] Comments: Patient Position: Sitting; Cuff Location: Left Arm; Cuff Size: Standard BP Diastolic 76 mm[Hg] Comments: Patient Position: Sitting; Cuff Location: Left Arm; Cuff Size: Standard Weight 137.375 lb Height 61 in Body Mass Index Calculated 25.96 kg/m2 Body Surface Area Calculated 1.61 m2 :03 Temperature 97.2 f Pulse 77 /min Comments: Pattern: Regular Respiration Rate 17 /min Comments: Pattern: Unlabored O2 SAT 96 % Comments: Room air BP Systolic 122 mm[Hg] Comments: Patient Position: Sitting; Cuff Location: Left Arm; Cuff Size: Standard BP Diastolic 82 mm[Hg] Comments: Patient Position: Sitting; Cuff Location: Left Arm; Cuff Size: Standard Weight 137.375 lb Height 61 in Body Mass Index Calculated 25.96 kg/m2 Body Surface Area Calculated 1.61 m2 :12 Temperature 97.2 f Pulse 68 /min Comments: Pattern: Regular Respiration Rate 18 /min Comments: Pattern: Unlabored O2 SAT 98 % Comments: Room air BP Systolic 122 mm[Hg] Comments: Patient Position: Sitting; Cuff Location: Left Arm; Cuff Size: Standard BP Diastolic 80 mm[Hg] Comments: Patient Position: Sitting; Cuff Location: Left Arm; Cuff Size: Standard Weight 137.375 lb Height 61 in Body Mass Index Calculated 25.96 kg/m2 Body Surface Area Calculated 1.61 m2 :53 Temperature 97.4 f Pulse 71 /min Comments: Pattern: Regular Respiration Rate 17 /min Comments: Pattern: Unlabored O2 SAT 98 % Comments: Room air BP Systolic 138 mm[Hg] Comments: Patient Position: Sitting; Cuff Location: Left Arm; Cuff Size: Standard BP Diastolic 86 mm[Hg] Comments: Patient Position: Sitting; Cuff Location: Left Arm; Cuff Size: Standard Weight 137.375 lb Height 61 in Body Mass Index Calculated 25.96 kg/m2 Body Surface Area Calculated 1.61 m2 :34 Temperature 98 f Pulse 72 /min Comments: Pattern: Regular Respiration Rate 16 /min Comments: Pattern: Unlabored O2 SAT 98 % Comments: Room air BP Systolic 118 mm[Hg] Comments: Patient Position: Sitting; Cuff Location: Left Arm; Cuff Size: Standard BP Diastolic 76 mm[Hg] Comments: Patient Position: Sitting; Cuff Location: Left Arm; Cuff Size: Standard Weight 146 lb Height 61 in Body Mass Index Calculated 27.59 kg/m2 Body Surface Area Calculated 1.65 m2 :30 Temperature 97.9 f Comments: Method: Temporal Pulse 72 /min Comments: Pattern: Regular Respiration Rate 16 /min Comments: Pattern: Unlabored O2 SAT 98 % Comments: Room air BP Systolic 130 mm[Hg] Comments: Patient Position: Sitting; Cuff Location: Left Arm; Cuff Size: Standard BP Diastolic 74 mm[Hg] Comments: Patient Position: Sitting; Cuff Location: Left Arm; Cuff Size: Standard Weight 146 lb Height 61 in Body Mass Index Calculated 27.59 kg/m2 Body Surface Area Calculated 1.65 m2 :38 Temperature 98.4 f Pulse 74 /min Comments: Pattern: Regular Respiration Rate 17 /min Comments: Pattern: Unlabored O2 SAT 95 % Comments: Room air BP Systolic 124 mm[Hg] Comments: Patient Position: Sitting; Cuff Location: Left Arm; Cuff Size: Standard BP Diastolic 82 mm[Hg] Comments: Patient Position: Sitting; Cuff Location: Left Arm; Cuff Size: Standard Weight 146 lb Height 61 in Body Mass Index Calculated 27.59 kg/m2 Body Surface Area Calculated 1.65 m2 :41 Temperature 97.4 f Pulse 87 /min Comments: Pattern: Regular Respiration Rate 17 /min Comments: Pattern: Unlabored O2 SAT 97 % Comments: Room air BP Systolic 114 mm[Hg] Comments: Patient Position: Sitting; Cuff Location: Left Arm; Cuff Size: Standard BP Diastolic 72 mm[Hg] Comments: Patient Position: Sitting; Cuff Location: Left Arm; Cuff Size: Standard Weight 146 lb Height 61 in Body Mass Index Calculated 27.59 kg/m2 Body Surface Area Calculated 1.65 m2 :12 Temperature 97.4 f Pulse 97 /min Comments: Pattern: Regular Respiration Rate 18 /min Comments: Pattern: Unlabored O2 SAT 95 % Comments: Room air BP Systolic 116 mm[Hg] Comments: Patient Position: Sitting; Cuff Location: Left Arm; Cuff Size: Standard BP Diastolic 74 mm[Hg] Comments: Patient Position: Sitting; Cuff Location: Left Arm; Cuff Size: Standard Weight 146 lb Height 61 in Body Mass Index Calculated 27.59 kg/m2 Body Surface Area Calculated 1.65 m2 :06 Temperature 97.6 f Comments: Method: Temporal Pulse 76 /min Comments: Pattern: Regular Respiration Rate 18 /min Comments: Pattern: Unlabored O2 SAT 97 % Comments: Room air BP Systolic 116 mm[Hg] Comments: Patient Position: Sitting; Cuff Location: Left Arm; Cuff Size: Standard BP Diastolic 74 mm[Hg] Comments: Patient Position: Sitting; Cuff Location: Left Arm; Cuff Size: Standard Weight 146 lb Height 61 in Body Mass Index Calculated 27.59 kg/m2 Body Surface Area Calculated 1.65 m2 :08 Temperature 97 f Comments: Method: Temporal Pulse 78 /min Comments: Pattern: Regular Respiration Rate 20 /min Comments: Pattern: Unlabored O2 SAT 97 % Comments: Room air BP Systolic 114 mm[Hg] Comments: Patient Position: Sitting; Cuff Location: Left Arm; Cuff Size: Standard BP Diastolic 74 mm[Hg] Comments: Patient Position: Sitting; Cuff Location: Left Arm; Cuff Size: Standard Weight 145 lb Height 61 in Body Mass Index Calculated 27.4 kg/m2 Body Surface Area Calculated 1.65 m2 :38 Pulse 72 /min Comments: Pattern: Regular Respiration Rate 20 /min Comments: Pattern: Unlabored O2 SAT 97 % Comments: Room air BP Systolic 138 mm[Hg] Comments: Patient Position: Sitting; Cuff Location: Left Arm; Cuff Size: Large BP Diastolic 62 mm[Hg] Comments: Patient Position: Sitting; Cuff Location: Left Arm; Cuff Size: Large Weight 146.125 lb Height 61 in Body Mass Index Calculated 27.61 kg/m2 Body Surface Area Calculated 1.65 m2 :39 Temperature 97.8 f Pulse 86 /min Comments: Pattern: Regular Respiration Rate 18 /min Comments: Pattern: Unlabored O2 SAT 95 % Comments: Room air BP Systolic 138 mm[Hg] Comments: Patient Position: Sitting; Cuff Location: Left Arm; Cuff Size: Standard BP Diastolic 84 mm[Hg] Comments: Patient Position: Sitting; Cuff Location: Left Arm; Cuff Size: Standard Weight 146 lb Height 61 in Body Mass Index Calculated 27.59 kg/m2 Body Surface Area Calculated 1.65 m2 :09 Temperature 99.2 f Pulse 58 /min Comments: Pattern: Regular Respiration Rate 17 /min Comments: Pattern: Unlabored O2 SAT 94 % Comments: Room air BP Systolic 100 mm[Hg] Comments: Patient Position: Sitting; Cuff Location: Left Arm; Cuff Size: Standard BP Diastolic 70 mm[Hg] Comments: Patient Position: Sitting; Cuff Location: Left Arm; Cuff Size: Standard Weight 140 lb Height 61 in Body Mass Index Calculated 26.45 kg/m2 Body Surface Area Calculated 1.62 m2 :20 Pulse 84 /min Comments: Pattern: Regular Respiration Rate 16 /min Comments: Pattern: Unlabored O2 SAT 97 % Comments: Room air BP Systolic 120 mm[Hg] Comments: Patient Position: Sitting; Cuff Location: Left Arm; Cuff Size: Standard BP Diastolic 70 mm[Hg] Comments: Patient Position: Sitting; Cuff Location: Left Arm; Cuff Size: Standard Weight 140 lb Height 61 in Body Mass Index Calculated 26.45 kg/m2 Body Surface Area Calculated 1.62 m2 :24 Temperature 98.6 f Comments: Method: Temporal Pulse 50 /min Comments: Pattern: Regular Respiration Rate 16 /min Comments: Pattern: Unlabored O2 SAT 98 % Comments: Room air BP Systolic 126 mm[Hg] Comments: Patient Position: Sitting; Cuff Location: Left Arm; Cuff Size: Standard BP Diastolic 72 mm[Hg] Comments: Patient Position: Sitting; Cuff Location: Left Arm; Cuff Size: Standard Weight 140 lb Height 61 in Body Mass Index Calculated 26.45 kg/m2 Body Surface Area Calculated 1.62 m2 :22 Comments: pain more at a 6/7 now Temperature 98.2 f Comments: Method: Temporal Pulse 72 /min Comments: Pattern: Regular Respiration Rate 17 /min Comments: Pattern: Unlabored O2 SAT 98 % Comments: Room air BP Systolic 124 mm[Hg] Comments: Patient Position: Sitting; Cuff Location: Left Arm; Cuff Size: Standard BP Diastolic 72 mm[Hg] Comments: Patient Position: Sitting; Cuff Location: Left Arm; Cuff Size: Standard Weight 143 lb Height 61 in Body Mass Index Calculated 27.02 kg/m2 Body Surface Area Calculated 1.64 m2 :18 Temperature 97.9 f Pulse 80 /min Comments: Pattern: Regular Respiration Rate 16 /min Comments: Pattern: Unlabored O2 SAT 97 % Comments: Room air BP Systolic 118 mm[Hg] Comments: Patient Position: Sitting; Cuff Location: Left Arm; Cuff Size: Standard BP Diastolic 76 mm[Hg] Comments: Patient Position: Sitting; Cuff Location: Left Arm; Cuff Size: Standard Weight 143 lb Height 61 in Body Mass Index Calculated 27.02 kg/m2 Body Surface Area Calculated 1.64 m2 :35 Temperature 97.6 f Pulse 65 /min Comments: Pattern: Regular Respiration Rate 16 /min Comments: Pattern: Unlabored O2 SAT 95 % Comments: Room air BP Systolic 118 mm[Hg] Comments: Patient Position: Sitting; Cuff Location: Left Arm; Cuff Size: Standard BP Diastolic 76 mm[Hg] Comments: Patient Position: Sitting; Cuff Location: Left Arm; Cuff Size: Standard Weight 149 lb Height 61 in Body Mass Index Calculated 28.15 kg/m2 Body Surface Area Calculated 1.67 m2 :27 Temperature 98.2 f Comments: Method: Oral Pulse 70 /min Comments: Pattern: Regular Respiration Rate 16 /min Comments: Pattern: Unlabored O2 SAT 98 % Comments: Room air BP Systolic 118 mm[Hg] Comments: Patient Position: Sitting; Cuff Location: Left Arm; Cuff Size: Standard BP Diastolic 72 mm[Hg] Comments: Patient Position: Sitting; Cuff Location: Left Arm; Cuff Size: Standard Weight 149 lb Height 61 in Body Mass Index Calculated 28.15 kg/m2 Body Surface Area Calculated 1.67 m2 :01 Temperature 97.8 f Comments: Method: Temporal Pulse 76 /min Comments: Pattern: Regular Respiration Rate 20 /min Comments: Pattern: Unlabored O2 SAT 97 % Comments: Room air BP Systolic 110 mm[Hg] Comments: Patient Position: Sitting; Cuff Location: Left Arm; Cuff Size: Standard BP Diastolic 74 mm[Hg] Comments: Patient Position: Sitting; Cuff Location: Left Arm; Cuff Size: Standard Weight 149 lb Height 61 in Body Mass Index Calculated 28.15 kg/m2 Body Surface Area Calculated 1.67 m2 :12 Comments: after made walk to table BP Systolic 100 mm[Hg] Comments: Patient Position: Sitting BP Diastolic 70 mm[Hg] Comments: Patient Position: Sitting :33 Comments: bp- 82/0 done with Doppler, 6 attempts to try manually, can not hear, even with Doppler extremely faint j Temperature 98.2 f Comments: Method: Oral Pulse 64 /min Comments: Pattern: Regular Respiration Rate 18 /min Comments: Pattern: Unlabored O2 SAT 94 % Comments: Room air Weight 149.25 lb Height 61 in Body Mass Index Calculated 28.2 kg/m2 Body Surface Area Calculated 1.67 m2 :43 Temperature 98.2 f Pulse 82 /min Comments: Pattern: Regular Respiration Rate 18 /min Comments: Pattern: Unlabored O2 SAT 95 % Comments: Room air BP Systolic 124 mm[Hg] Comments: Patient Position: Sitting; Cuff Location: Left Arm; Cuff Size: Standard BP Diastolic 80 mm[Hg] Comments: Patient Position: Sitting; Cuff Location: Left Arm; Cuff Size: Standard Weight 150.25 lb Height 61 in Body Mass Index Calculated 28.39 kg/m2 Body Surface Area Calculated 1.67 m2 :26 Temperature 98.6 f Comments: Method: Temporal Pulse 71 /min Comments: Pattern: Regular Respiration Rate 16 /min Comments: Pattern: Unlabored O2 SAT 97 % Comments: Room air BP Systolic 124 mm[Hg] Comments: Patient Position: Sitting; Cuff Location: Left Arm; Cuff Size: Standard BP Diastolic 68 mm[Hg] Comments: Patient Position: Sitting; Cuff Location: Left Arm; Cuff Size: Standard Weight 156 lb Height 61 in Body Mass Index Calculated 29.48 kg/m2 Body Surface Area Calculated 1.7 m2 :17 Temperature 97.6 f Comments: Method: Temporal Pulse 84 /min Comments: Pattern: Regular Respiration Rate 16 /min Comments: Pattern: Unlabored O2 SAT 98 % Comments: Room air BP Systolic 124 mm[Hg] Comments: Patient Position: Sitting; Cuff Location: Left Arm; Cuff Size: Standard BP Diastolic 76 mm[Hg] Comments: Patient Position: Sitting; Cuff Location: Left Arm; Cuff Size: Standard Weight 156 lb Height 61 in Body Mass Index Calculated 29.48 kg/m2 Body Surface Area Calculated 1.7 m2 :53 Temperature 97.1 f Comments: Method: Temporal Pulse 82 /min Comments: Pattern: Regular Respiration Rate 17 /min Comments: Pattern: Unlabored O2 SAT 98 % Comments: Room air BP Systolic 124 mm[Hg] Comments: Patient Position: Sitting; Cuff Location: Left Arm; Cuff Size: Standard BP Diastolic 76 mm[Hg] Comments: Patient Position: Sitting; Cuff Location: Left Arm; Cuff Size: Standard Weight 152 lb Height 61 in Body Mass Index Calculated 28.72 kg/m2 Body Surface Area Calculated 1.68 m2 :08 Temperature 98.2 f Comments: Method: Oral Pulse 86 /min Comments: Pattern: Regular Respiration Rate 16 /min Comments: Pattern: Unlabored O2 SAT 96 % Comments: Room air BP Systolic 120 mm[Hg] Comments: Patient Position: Sitting; Cuff Location: Left Arm; Cuff Size: Standard BP Diastolic 80 mm[Hg] Comments: Patient Position: Sitting; Cuff Location: Left Arm; Cuff Size: Standard Weight 148 lb Height 61 in Body Mass Index Calculated 27.96 kg/m2 Body Surface Area Calculated 1.66 m2 :02 Temperature 97.6 f Comments: Method: Temporal Pulse 74 /min Comments: Pattern: Regular Respiration Rate 20 /min Comments: Pattern: Unlabored BP Systolic 126 mm[Hg] Comments: Patient Position: Sitting; Cuff Location: Left Arm; Cuff Size: Standard BP Diastolic 78 mm[Hg] Comments: Patient Position: Sitting; Cuff Location: Left Arm; Cuff Size: Standard Weight 148 lb Height 61 in Body Mass Index Calculated 27.96 kg/m2 Body Surface Area Calculated 1.66 m2 :40 Temperature 97.6 f Comments: Method: Temporal Pulse 70 /min Comments: Pattern: Regular Respiration Rate 20 /min Comments: Pattern: Unlabored BP Systolic 124 mm[Hg] Comments: Patient Position: Sitting; Cuff Location: Left Arm; Cuff Size: Standard BP Diastolic 80 mm[Hg] Comments: Patient Position: Sitting; Cuff Location: Left Arm; Cuff Size: Standard Weight 148 lb Height 61 in Body Mass Index Calculated 27.96 kg/m2 Body Surface Area Calculated 1.66 m2 :39 Temperature 97.6 f Comments: Method: Temporal Pulse 76 /min Comments: Pattern: Regular Respiration Rate 20 /min Comments: Pattern: Unlabored BP Systolic 130 mm[Hg] Comments: Patient Position: Sitting; Cuff Location: Left Arm; Cuff Size: Standard BP Diastolic 74 mm[Hg] Comments: Patient Position: Sitting; Cuff Location: Left Arm; Cuff Size: Standard Weight 148 lb Height 61 in Body Mass Index Calculated 27.96 kg/m2 Body Surface Area Calculated 1.66 m2 :57 Temperature 97.3 f Comments: Method: Temporal Pulse 73 /min Comments: Pattern: Regular Respiration Rate 16 /min Comments: Pattern: Unlabored O2 SAT 94 % Comments: Room air BP Systolic 140 mm[Hg] Comments: Patient Position: Sitting; Cuff Location: Left Arm; Cuff Size: Standard BP Diastolic 72 mm[Hg] Comments: Patient Position: Sitting; Cuff Location: Left Arm; Cuff Size: Standard Weight 148 lb Height 61 in Body Mass Index Calculated 27.96 kg/m2 Body Surface Area Calculated 1.66 m2 :37 Temperature 97.9 f Comments: Method: Oral Pulse 76 /min Comments: Pattern: Regular Respiration Rate 20 /min Comments: Pattern: Unlabored BP Systolic 128 mm[Hg] Comments: Patient Position: Sitting; Cuff Location: Left Arm; Cuff Size: Standard BP Diastolic 74 mm[Hg] Comments: Patient Position: Sitting; Cuff Location: Left Arm; Cuff Size: Standard Weight 149 lb Height 61 in Body Mass Index Calculated 28.15 kg/m2 Body Surface Area Calculated 1.67 m2 :27 Pulse 69 /min Comments: Pattern: Regular Respiration Rate 16 /min Comments: Pattern: Unlabored O2 SAT 97 % Comments: Room air BP Systolic 126 mm[Hg] Comments: Patient Position: Sitting; Cuff Location: Left Arm; Cuff Size: Standard BP Diastolic 70 mm[Hg] Comments: Patient Position: Sitting; Cuff Location: Left Arm; Cuff Size: Standard Weight 153 lb Height 61 in Body Mass Index Calculated 28.91 kg/m2 Body Surface Area Calculated 1.69 m2 :09 Pulse 68 /min Comments: Pattern: Regular Respiration Rate 16 /min Comments: Pattern: Unlabored O2 SAT 97 % Comments: Room air BP Systolic 115 mm[Hg] Comments: Patient Position: Sitting; Cuff Location: Left Arm; Cuff Size: Standard BP Diastolic 60 mm[Hg] Comments: Patient Position: Sitting; Cuff Location: Left Arm; Cuff Size: Standard Weight 153 lb Height 61 in Body Mass Index Calculated 28.91 kg/m2 Body Surface Area Calculated 1.69 m2 :20 Temperature 97.5 f Comments: Method: Temporal Pulse 74 /min Comments: Pattern: Regular Respiration Rate 16 /min Comments: Pattern: Unlabored O2 SAT 97 % Comments: Room air BP Systolic 132 mm[Hg] Comments: Patient Position: Sitting; Cuff Location: Left Arm; Cuff Size: Standard BP Diastolic 76 mm[Hg] Comments: Patient Position: Sitting; Cuff Location: Left Arm; Cuff Size: Standard Weight 153 lb Height 61 in Body Mass Index Calculated 28.91 kg/m2 Body Surface Area Calculated 1.69 m2 :09 Pulse 44 /min Comments: Pattern: Regular Respiration Rate 16 /min Comments: Pattern: Unlabored O2 SAT 90 % Comments: Room air BP Systolic 130 mm[Hg] Comments: Patient Position: Sitting; Cuff Location: Left Arm; Cuff Size: Large BP Diastolic 78 mm[Hg] Comments: Patient Position: Sitting; Cuff Location: Left Arm; Cuff Size: Large Weight 153 lb Height 61 in Body Mass Index Calculated 28.91 kg/m2 Body Surface Area Calculated 1.69 m2 :09 Pulse 64 /min Comments: Pattern: Regular Respiration Rate 16 /min Comments: Pattern: Unlabored BP Systolic 124 mm[Hg] Comments: Patient Position: Sitting; Cuff Location: Left Arm; Cuff Size: Standard BP Diastolic 68 mm[Hg] Comments: Patient Position: Sitting; Cuff Location: Left Arm; Cuff Size: Standard Weight 153 lb Height 61 in Body Mass Index Calculated 28.91 kg/m2 Body Surface Area Calculated 1.69 m2 :14 Temperature 98.2 f Comments: Method: Oral Pulse 76 /min Comments: Pattern: Regular Respiration Rate 20 /min Comments: Pattern: Unlabored BP Systolic 120 mm[Hg] Comments: Patient Position: Sitting; Cuff Location: Left Arm; Cuff Size: Standard BP Diastolic 76 mm[Hg] Comments: Patient Position: Sitting; Cuff Location: Left Arm; Cuff Size: Standard Weight 156 lb Height 61 in Body Mass Index Calculated 29.48 kg/m2 Body Surface Area Calculated 1.7 m2 :19 Temperature 98.4 f Comments: Method: Oral Pulse 71 /min Comments: Pattern: Regular Respiration Rate 16 /min Comments: Pattern: Unlabored O2 SAT 97 % Comments: Room air BP Systolic 113 mm[Hg] Comments: Patient Position: Sitting; Cuff Location: Left Arm; Cuff Size: Standard BP Diastolic 74 mm[Hg] Comments: Patient Position: Sitting; Cuff Location: Left Arm; Cuff Size: Standard Weight 160 lb Height 61 in Body Mass Index Calculated 30.23 kg/m2 Body Surface Area Calculated 1.72 m2 :23 Temperature 98 f Comments: Method: Temporal Pulse 88 /min Comments: Pattern: Regular Respiration Rate 16 /min Comments: Pattern: Unlabored O2 SAT 98 % Comments: Room air BP Systolic 118 mm[Hg] Comments: Patient Position: Sitting; Cuff Location: Left Arm; Cuff Size: Standard BP Diastolic 78 mm[Hg] Comments: Patient Position: Sitting; Cuff Location: Left Arm; Cuff Size: Standard Weight 160 lb Height 61 in Body Mass Index Calculated 30.23 kg/m2 Body Surface Area Calculated 1.72 m2 :08 Pulse 84 /min Comments: Pattern: Regular Respiration Rate 18 /min Comments: Pattern: Unlabored O2 SAT 96 % Comments: Room air BP Systolic 180 mm[Hg] Comments: Patient Position: Sitting; Cuff Location: Left Arm; Cuff Size: Large BP Diastolic 102 mm[Hg] Comments: Patient Position: Sitting; Cuff Location: Left Arm; Cuff Size: Large Weight 159.25 lb Height 61 in Body Mass Index Calculated 30.09 kg/m2 Body Surface Area Calculated 1.71 m2 :58 Temperature 98.2 f Comments: Method: Temporal Pulse 72 /min Comments: Pattern: Regular Respiration Rate 16 /min Comments: Pattern: Unlabored O2 SAT 98 % Comments: Room air BP Systolic 124 mm[Hg] Comments: Patient Position: Sitting; Cuff Location: Left Arm; Cuff Size: Standard BP Diastolic 70 mm[Hg] Comments: Patient Position: Sitting; Cuff Location: Left Arm; Cuff Size: Standard Weight 160.2 lb Height 61 in Body Mass Index Calculated 30.27 kg/m2 Body Surface Area Calculated 1.72 m2 :17 Temperature 98 f Comments: Method: Oral Pulse 82 /min Comments: Pattern: Regular Respiration Rate 18 /min Comments: Pattern: Unlabored BP Systolic 120 mm[Hg] Comments: Patient Position: Sitting; Cuff Location: Left Arm; Cuff Size: Standard BP Diastolic 84 mm[Hg] Comments: Patient Position: Sitting; Cuff Location: Left Arm; Cuff Size: Standard Weight 152.375 lb Height 61 in Body Mass Index Calculated 28.79 kg/m2 Body Surface Area Calculated 1.68 m2 :08 Temperature 98.4 f Comments: Method: Oral Pulse 58 /min Comments: Pattern: Regular Respiration Rate 17 /min O2 SAT 97 % Comments: Room air BP Systolic 118 mm[Hg] Comments: Patient Position: Sitting; Cuff Location: Left Arm; Cuff Size: Standard BP Diastolic 76 mm[Hg] Comments: Patient Position: Sitting; Cuff Location: Left Arm; Cuff Size: Standard Weight 152.375 lb Height 61 in Body Mass Index Calculated 28.79 kg/m2 Body Surface Area Calculated 1.68 m2 :45 Temperature 98.8 f Comments: Method: Oral Pulse 72 /min Comments: Pattern: Regular Respiration Rate 16 /min Comments: Pattern: Unlabored BP Systolic 122 mm[Hg] Comments: Patient Position: Sitting; Cuff Location: Left Arm; Cuff Size: Standard BP Diastolic 72 mm[Hg] Comments: Patient Position: Sitting; Cuff Location: Left Arm; Cuff Size: Standard Weight 149 lb Height 61.5 in Body Mass Index Calculated 27.7 kg/m2 Body Surface Area Calculated 1.68 m2 :46 Temperature 99.6 f Comments: Method: Oral Pulse 62 /min Comments: Pattern: Regular Respiration Rate 16 /min BP Systolic 110 mm[Hg] Comments: Patient Position: Sitting; Cuff Location: Left Arm; Cuff Size: Standard BP Diastolic 70 mm[Hg] Comments: Patient Position: Sitting; Cuff Location: Left Arm; Cuff Size: Standard Weight 149 lb Height 61.5 in Body Mass Index Calculated 27.7 kg/m2 Body Surface Area Calculated 1.68 m2 :38 Temperature 97.9 f Comments: Method: Oral Pulse 68 /min Comments: Pattern: Regular Respiration Rate 20 /min Comments: Pattern: Unlabored BP Systolic 110 mm[Hg] Comments: Patient Position: Sitting; Cuff Location: Left Arm; Cuff Size: Standard BP Diastolic 76 mm[Hg] Comments: Patient Position: Sitting; Cuff Location: Left Arm; Cuff Size: Standard Weight 149 lb Height 61.5 in Body Mass Index Calculated 27.7 kg/m2 Body Surface Area Calculated 1.68 m2 :10 Temperature 97.9 f Comments: Method: Oral Pulse 74 /min Comments: Pattern: Regular Respiration Rate 20 /min Comments: Pattern: Unlabored BP Systolic 124 mm[Hg] Comments: Patient Position: Sitting; Cuff Location: Left Arm; Cuff Size: Standard BP Diastolic 76 mm[Hg] Comments: Patient Position: Sitting; Cuff Location: Left Arm; Cuff Size: Standard Weight 145 lb Height 61.5 in Body Mass Index Calculated 26.95 kg/m2 Body Surface Area Calculated 1.66 m2 :23 Temperature 98.8 f Comments: Method: Oral Pulse 70 /min Comments: Pattern: Regular Respiration Rate 16 /min O2 SAT 97 % Comments: Room air BP Systolic 128 mm[Hg] Comments: Patient Position: Sitting; Cuff Location: Left Arm; Cuff Size: Standard BP Diastolic 78 mm[Hg] Comments: Patient Position: Sitting; Cuff Location: Left Arm; Cuff Size: Standard Weight 154 lb Height 61.5 in Body Mass Index Calculated 28.63 kg/m2 Body Surface Area Calculated 1.7 m2 :00 Pulse 72 /min Comments: Pattern: Regular Respiration Rate 16 /min Comments: Pattern: Unlabored BP Systolic 130 mm[Hg] Comments: Patient Position: Sitting; Cuff Location: Left Arm; Cuff Size: Standard BP Diastolic 82 mm[Hg] Comments: Patient Position: Sitting; Cuff Location: Left Arm; Cuff Size: Standard Weight 154 lb Height 61.5 in Body Mass Index Calculated 28.63 kg/m2 Body Surface Area Calculated 1.7 m2 :27 Temperature 98 f Comments: Method: Temporal Pulse 103 /min Comments: Pattern: Regular Respiration Rate 16 /min Comments: Pattern: Unlabored O2 SAT 98 % Comments: Room air BP Systolic 130 mm[Hg] Comments: Patient Position: Sitting; Cuff Location: Left Arm; Cuff Size: Standard BP Diastolic 76 mm[Hg] Comments: Patient Position: Sitting; Cuff Location: Left Arm; Cuff Size: Standard Weight 150 lb Height 61.5 in Body Mass Index Calculated 27.88 kg/m2 Body Surface Area Calculated 1.68 m2 :38 Temperature 97.2 f Pulse 64 /min Comments: Pattern: Regular Respiration Rate 18 /min Comments: Pattern: Unlabored O2 SAT 98 % Comments: Room air BP Systolic 116 mm[Hg] Comments: Patient Position: Sitting; Cuff Location: Left Arm; Cuff Size: Standard BP Diastolic 68 mm[Hg] Comments: Patient Position: Sitting; Cuff Location: Left Arm; Cuff Size: Standard Weight 150 lb Height 61.5 in Body Mass Index Calculated 27.88 kg/m2 Body Surface Area Calculated 1.68 m2 :54 Temperature 98.3 f Comments: Method: Oral Pulse 72 /min Comments: Pattern: Regular Respiration Rate 18 /min Comments: Pattern: Unlabored BP Systolic 132 mm[Hg] Comments: Patient Position: Sitting; Cuff Location: Left Arm; Cuff Size: Standard BP Diastolic 78 mm[Hg] Comments: Patient Position: Sitting; Cuff Location: Left Arm; Cuff Size: Standard Weight 150 lb Height 61.5 in Body Mass Index Calculated 27.88 kg/m2 Body Surface Area Calculated 1.68 m2 :09 Temperature 97.6 f Comments: Method: Temporal Pulse 70 /min Comments: Pattern: Regular Respiration Rate 16 /min Comments: Pattern: Unlabored O2 SAT 98 % Comments: Room air BP Systolic 124 mm[Hg] Comments: Patient Position: Sitting; Cuff Location: Left Arm; Cuff Size: Standard BP Diastolic 76 mm[Hg] Comments: Patient Position: Sitting; Cuff Location: Left Arm; Cuff Size: Standard Weight 150 lb Height 61.5 in Body Mass Index Calculated 27.88 kg/m2 Body Surface Area Calculated 1.68 m2 :00 Temperature 98 f Comments: Method: Temporal Pulse 48 /min Comments: Pattern: Regular Respiration Rate 16 /min Comments: Pattern: Unlabored BP Systolic 122 mm[Hg] Comments: Patient Position: Sitting; Cuff Location: Left Arm; Cuff Size: Standard BP Diastolic 76 mm[Hg] Comments: Patient Position: Sitting; Cuff Location: Left Arm; Cuff Size: Standard Weight 150 lb Height 61.5 in Body Mass Index Calculated 27.88 kg/m2 Body Surface Area Calculated 1.68 m2 :54 Temperature 97.8 f Comments: Method: Oral Pulse 70 /min Comments: Pattern: Regular Respiration Rate 18 /min Comments: Pattern: Unlabored BP Systolic 118 mm[Hg] Comments: Patient Position: Sitting; Cuff Location: Left Arm; Cuff Size: Standard BP Diastolic 70 mm[Hg] Comments: Patient Position: Sitting; Cuff Location: Left Arm; Cuff Size: Standard Weight 151 lb Height 61.5 in Body Mass Index Calculated 28.07 kg/m2 Body Surface Area Calculated 1.69 m2 :50 Temperature 98.6 f Comments: Method: Oral Pulse 84 /min Comments: Pattern: Regular Respiration Rate 17 /min BP Systolic 108 mm[Hg] Comments: Patient Position: Sitting; Cuff Location: Left Arm; Cuff Size: Standard BP Diastolic 62 mm[Hg] Comments: Patient Position: Sitting; Cuff Location: Left Arm; Cuff Size: Standard Weight 148 lb Height 61.5 in Body Mass Index Calculated 27.51 kg/m2 Body Surface Area Calculated 1.67 m2 :31 Temperature 99 f Comments: Method: Oral Pulse 66 /min Comments: Pattern: Regular Respiration Rate 16 /min Comments: Pattern: Unlabored BP Systolic 110 mm[Hg] Comments: Patient Position: Sitting; Cuff Location: Left Arm; Cuff Size: Standard BP Diastolic 50 mm[Hg] Comments: Patient Position: Sitting; Cuff Location: Left Arm; Cuff Size: Standard Weight 148 lb Height 61.5 in Body Mass Index Calculated 27.51 kg/m2 Body Surface Area Calculated 1.67 m2 :55 Comments: lying down 120/74, 54sitting 118/70, 56standing 115/72, 58 Pulse 54 /min Comments: Pattern: Regular BP Systolic 120 mm[Hg] Comments: Patient Position: Sitting; Cuff Location: Left Arm; Cuff Size: Standard BP Diastolic 74 mm[Hg] Comments: Patient Position: Sitting; Cuff Location: Left Arm; Cuff Size: Standard :25 Temperature 98.2 f Comments: Method: Oral Pulse 54 /min Comments: Pattern: Regular Respiration Rate 18 /min Comments: Pattern: Unlabored BP Systolic 118 mm[Hg] Comments: Patient Position: Sitting; Cuff Location: Left Arm; Cuff Size: Standard BP Diastolic 70 mm[Hg] Comments: Patient Position: Sitting; Cuff Location: Left Arm; Cuff Size: Standard Weight 148 lb Height 61.5 in Body Mass Index Calculated 27.51 kg/m2 Body Surface Area Calculated 1.67 m2 :20 Temperature 96.5 f Comments: Method: Oral Pulse 48 /min Comments: Pattern: Regular Respiration Rate 16 /min Comments: Pattern: Unlabored BP Systolic 132 mm[Hg] Comments: Patient Position: Sitting; Cuff Location: Left Arm; Cuff Size: Standard BP Diastolic 70 mm[Hg] Comments: Patient Position: Sitting; Cuff Location: Left Arm; Cuff Size: Standard Weight 148 lb Height 61.5 in Body Mass Index Calculated 27.51 kg/m2 Body Surface Area Calculated 1.67 m2 :22 Temperature 97.9 f Pulse 48 /min Comments: Pattern: Regular Respiration Rate 16 /min Comments: Pattern: Unlabored BP Systolic 120 mm[Hg] Comments: Patient Position: Sitting; Cuff Location: Left Arm; Cuff Size: Large BP Diastolic 80 mm[Hg] Comments: Patient Position: Sitting; Cuff Location: Left Arm; Cuff Size: Large Weight 147 lb Height 61.5 in Body Mass Index Calculated 27.33 kg/m2 Body Surface Area Calculated 1.67 m2 :23 Temperature 98.5 f Comments: Method: Oral Pulse 68 /min Comments: Pattern: Regular Respiration Rate 18 /min Comments: Pattern: Unlabored BP Systolic 126 mm[Hg] Comments: Patient Position: Sitting; Cuff Location: Left Arm; Cuff Size: Standard BP Diastolic 74 mm[Hg] Comments: Patient Position: Sitting; Cuff Location: Left Arm; Cuff Size: Standard Weight 150 lb Height 61.5 in Body Mass Index Calculated 27.88 kg/m2 Body Surface Area Calculated 1.68 m2 :58 Temperature 97.9 f Comments: Method: Oral Pulse 74 /min Comments: Pattern: Regular Respiration Rate 18 /min Comments: Pattern: Unlabored BP Systolic 118 mm[Hg] Comments: Patient Position: Sitting; Cuff Location: Left Arm; Cuff Size: Standard BP Diastolic 78 mm[Hg] Comments: Patient Position: Sitting; Cuff Location: Left Arm; Cuff Size: Standard Weight 150 lb Height 61.5 in Body Mass Index Calculated 27.88 kg/m2 Body Surface Area Calculated 1.68 m2 Results Date Description Value Details :06 Urinalysis, Office (47982) UA - LEUKOCYTE ESTERASE Moderate (Normal) Comments: 70leu/uL UA - NITRITE Negative (Normal) UA - PROTEIN Negative mg/dL (Normal) UA - PH 6.0 (Normal) UA - BLOOD Negative (Normal) UA - SPECIFIC GRAVITY 1.030 (Abnormal) UA - KETONES Negative mg/dL (Normal) UA - BILIRUBIN + (Abnormal) UA - GLUCOSE Negative (Normal) 17-Ize-508635:17 Bedside Glucose Comments: [facility] [id number] [place] [address] BEDSIDE GLU 88 mg/dL (Normal) Range: 70-110 Comments: MANAGEMENT OF PATIENT CARE PER NURSING PROTOCOL :41 Blood Glucose , Office (31048) Blood Glucose , Office 82 (Normal) :41 HgA1C , Office (15227) HgA1C , Office 5.8 % (Normal) Range: 4.6 - 7.1 :18 Anaerobic & Aerobic Comments: Right breast; PATIENT NOT FASTINGPERFORMED BY: [facility] Ieiamb5806 [facility] [id number] Information: RIGHT BREAST SRC:BR Culture (56524) Result 1 Mixed skin remy (Normal) Aerobic Culture Final report (Normal) Result 1 NANG72 (Normal) Comments: No anaerobic growth in 72 hours. Anaerobic Culture Final report (Normal) 2-Cot-[id number]:44 Urinalysis, Complete Comments: Order Date: 11/21/17How was Urine Obtained? CLEAN [facility] [address] [place], [address] MUCUS, URINE 0 SEEN {/hpf} (Normal) BACTERIA RARE {/hpf} (Normal) SQUAM EPI 0-5 SEEN {/hpf} (Normal) Range: 5-10 RBC-UA 0 SEEN {/hpf} (Normal) Range: 0-5 WBC 0-5 SEEN {/hpf} (Normal) Range: 0-5 LEUK ESTERASE 500 /ul (Abnormal) OCCULT BLOOD-UR Negative /ul (Normal) NITRITE UR Negative (Normal) UROBILI Normal mg/dL (Normal) PROT DIPSTX 15 mg/dL (Abnormal) pH UR 6.5 (Normal) Range: 5.0 - 8.0 SP.GR. DIPSTX 1.010 (Normal) Range: 1.002-1.030 KETONE UR Negative mg/dL (Normal) BILIRUBIN URINE Negative mg/dL (Normal) GLUCOSE, UR Normal mg/dL (Normal) CLARITY Clear (Normal) COLOR Yellow (Normal) 80-Ksl-07841:12 HgA1C , Office (06629) HgA1C , Office 5.9 % (Normal) Range: 4.6 - 7.1 :12 Blood Glucose , Office (78207) Blood Glucose , Office 122 (Normal) Comments: not fasting :59 Microscopic Examination Comments: PATIENT WAS FASTINGPERFORMED BY: [facility] Frrllk2435 [facility] [id number] Bacteria None seen (Normal) Mucus Threads Present (Normal) Epithelial Cells (non renal) 0-10 {/hpf} (Normal) Range: 0 - 10 RBC 0-2 {/hpf} (Normal) Range: 0 - 2 WBC 0-5 {/hpf} (Normal) Range: 0 - 5 10-Pva-437282:50 Urinalysis, Complete Comments: Order Date: 07/28/17How was Urine Obtained? CLEAN [facility] [address] [place], [place], [id number] MUCUS, URINE 0 SEEN {/hpf} (Normal) BACTERIA 0 SEEN {/hpf} (Normal) SQUAM EPI 0-5 SEEN {/hpf} (Normal) Range: 5-10 RBC-UA 0 SEEN {/hpf} (Normal) Range: 0-5 WBC 0-5 SEEN {/hpf} (Normal) Range: 0-5 LEUK ESTERASE 25 /ul (Abnormal) OCCULT BLOOD-UR Negative /ul (Normal) NITRITE UR Negative (Normal) UROBILI Normal mg/dL (Normal) PROT DIPSTX Negative mg/dL (Normal) pH UR 7.0 (Normal) Range: 5.0 - 8.0 SP.GR. DIPSTX 1.010 (Normal) Range: 1.002-1.030 KETONE UR Negative mg/dL (Normal) BILIRUBIN URINE Negative mg/dL (Normal) GLUCOSE, UR Normal mg/dL (Normal) CLARITY Clear (Normal) COLOR Yellow (Normal) 42-Bzb-253243:01 Basic Metabolic Profile (BMP) Comments: [facility] [address] [place], [place], [id number] GAP 8 (Normal) Range: 5-15 CO2 30.0 mmol/L (Normal) Range: 21.0-32.0 CL 103 mmol/L (Normal) Range: 98-107 K 4.2 mmol/L (Normal) Range: 3.5-5.1 NA 141 mmol/L (Normal) Range: 136-145 CA 9.3 mg/dL (Normal) Range: 8.5-10.1 BUN/CRE 32.6 {RATIO} (Abnormal) Range: 10-20 Estimated CRCL 38.94 ml/min (Normal) EST GFR - AA 131 mL/min (Normal) Comments: GFR Calc EST GFR 108 mL/min (Normal) Comments: Non- GFR Calc CREAT,SERUM 0.58 mg/dL (Normal) Range: 0.55-1.02 Comments: The validity of the calculated GFR AND GFRAA in patients over70 years has not been determined. Clinical correlation isessential. BUN 19 mg/dL (Abnormal) Range: 7-18 GLU 106 mg/dL (Normal) Range: 74-106 Comments: Fasting Glucose result from 100 to 125 mg/dLsuggests IMPAIRED HOMEOSTASIS per A.D.A. criteria.Please note revised GLUCOSE reference range /02/2018. 96-Vdf-133546:01 Bedside Glucose Comments: [facility] Mcuk[address] [facility] [place] [address] BEDSIDE GLU 109 mg/dL (Normal) Range: 70-110 Comments: MANAGEMENT OF PATIENT CARE PER NURSING PROTOCOL 74-Wum-034987:01 CBC W/Diff, Automated Comments: [facility] [address]aw[address] [facility] [place], [address] Absolute Lymph 1.03 {X10_3/ul} (Normal) Range: 0.83-4.51 Absolute Neut 3.9 {X10_3/uL} (Normal) Range: 2.0-7.7 IM GRAN % 0.200 % (Normal) Range: 0.0-0.9 Comments: IG% - Immature Granulocytes (promyelocytes, myelocytes andmetamyelocytes) > 1% indicates that a LEFT SHIFT is Present. BASO% 0.2 % (Normal) Range: 0-1 EO% 3.2 % (Normal) Range: 0-5 MONO% 8.2 % (Normal) Range: 0-10 LY% 18.4 % (Abnormal) Range: 19-41 NEUT% 69.8 % (Normal) Range: 47-70 MPV 9.3 fL (Normal) Range: 6.2-12.0 PLT 301 K/mm3 (Normal) Range: 150-450 RDW SD 40.7 fL (Normal) Range: 35.1-43.9 RDW CV 14.2 % (Normal) Range: 11.6-14.6 MCHC 31.5 {g/gl} (Abnormal) Range: 32-36 MCH 25.1 pg (Abnormal) Range: 27.0-32.0 MCV 79.6 fL (Abnormal) Range: 81-99 HCT 39.0 % (Normal) Range: 37-47 HGB 12.3 g/dL (Normal) Range: 12.0-15.0 RBC 4.90 {M/mm3} (Normal) Range: 4.2-5.4 WBC 5.6 K/mm3 (Normal) Range: 4.4-11.0 51-Kgn-15017:59 PARATHORMONE (24372) Comments: PATIENT WAS FASTINGPERFORMED BY: [facility] Lzoovc0251 [facility] [id number] PTH, Intact 22 pg/mL (Normal) Range: 15-65 81-Hpi-33986:59 CALCIFIDIOL (13447) VIT D 25 Comments: PATIENT WAS FASTINGPERFORMED BY: [facility] Ephvoe4854 [facility] [id number] Vitamin D, 25-Hydroxy 60.4 ng/mL (Normal) Range: 30.0-100.0 Comments: Vitamin D deficiency has been defined by the [place] of[place]icine and an Endocrine Society practice guideline as alevel of serum 25-OH vitamin D less than 20 ng/mL (1,2).The Endocrine Society went on to further define vitamin Dinsufficiency as a level between 21 and 29 ng/mL (2).1. IOM ([place] of Medicine). 2010. Dietary reference intakes for calcium and D. [place]: The National Academies Press.2. Shelby MF, Sergio EAST, Anatoly MERCER, et al. Evaluation, treatment, and prevention of vitamin D deficiency: an Endocrine Society clinical practice guideline. JCEM. 2010; 96(7):1911-30. 01-Sei-53848:59 TSH (91349) Comments: PATIENT WAS FASTINGPERFORMED BY: [facility] [id number] TSH 1.720 {uIU/mL} (Normal) Range: 0.450-4.500 :59 URINALYSIS, W/ MICRO (35814) Comments: PATIENT WAS FASTINGPERFORMED BY: [facility] [id number] Microscopic Examination See below: (Normal) Comments: Microscopic was indicated and was performed. Nitrite, Urine Negative (Normal) Urobilinogen,Semi-Qn 0.2 mg/dL (Normal) Range: 0.2-1.0 Bilirubin Negative (Normal) Occult Blood Negative (Normal) Ketones Negative (Normal) Glucose Negative (Normal) Protein Negative (Normal) WBC Esterase Trace (Abnormal) Appearance Clear (Normal) Urine-Color Yellow (Normal) pH 6.0 (Normal) Range: 5.0-7.5 Specific [place] 1.017 (Normal) Range: 1.005-1.030 :59 MICROALBUMIN: CREATININE RATIO Comments: PATIENT WAS FASTINGPERFORMED BY: [facility] MusicRiverview Medical CenterPezncs2519 [facility] [id number] (91509) AND (62420) Alb/Creat Ratio 8.7 {mg/g_creat} (Normal) Range: 0.0-30.0 Albumin, Urine 6.7 ug/mL (Normal) Creatinine, Urine 76.6 mg/dL (Normal) :59 METABOLIC PANEL, COMPREHENSIVE Comments: PATIENT WAS FASTINGPERFORMED BY: [facility] [id number] (93207) ALT (SGPT) 21 [iU]/L (Normal) Range: 0-32 AST (SGOT) 24 [iU]/L (Normal) Range: 0-40 Alkaline Phosphatase 88 [iU]/L (Normal) Range: 39-117 Bilirubin, Total 0.2 mg/dL (Normal) Range: 0.0-1.2 A/G Ratio 1.5 (Normal) Range: 1.2-2.2 Globulin, Total 2.6 g/dL (Normal) Range: 1.5-4.5 Albumin 4.0 g/dL (Normal) Range: 3.5-4.8 Protein, Total 6.6 g/dL (Normal) Range: 6.0-8.5 Calcium 9.2 mg/dL (Normal) Range: 8.7-10.3 Carbon Dioxide, Total 25 mmol/L (Normal) Range: 18-29 Chloride 101 mmol/L (Normal) Range: 96-106 Potassium 4.5 mmol/L (Normal) Range: 3.5-5.2 Sodium 142 mmol/L (Normal) Range: 134-144 BUN/Creatinine Ratio 22 (Normal) Range: 12-28 eGFR If Africn Am 101 mL/min/1.73 (Normal) eGFR If NonAfricn Am 88 mL/min/1.73 (Normal) Creatinine 0.69 mg/dL (Normal) Range: 0.57-1.00 BUN 15 mg/dL (Normal) Range: 8-27 Glucose 93 mg/dL (Normal) Range: 65-99 18-Dcq-76937:59 LIPID PANEL (39424) Comments: PATIENT WAS FASTINGPERFORMED BY: [employer]6370 [facility] [id number] LDL/HDL Ratio 2.3 {ratio} (Normal) Range: 0.0-3.2 Comments: LDL/HDL Ratio Men Women 1/2 Avg.Risk 1.0 1.5 Av g.Risk 3.6 3.2 2X Avg.Risk 6.2 5.0 3X Avg.Risk 8.0 6.1 LDL Cholesterol Calc 126 mg/dL (Abnormal) Range: 0-99 VLDL Cholesterol Tab 16 mg/dL (Normal) Range: 5-40 HDL Cholesterol 56 mg/dL (Normal) Triglycerides 78 mg/dL (Normal) Range: 0-149 Cholesterol, Total 198 mg/dL (Normal) Range: 100-199 16-Ayz-58341:59 CBC W/AUTO DIFF WBC (04935) Comments: PATIENT WAS FASTINGPERFORMED BY: [employer]6370 [place] [id number]; ov 10/05 Immature Grans (Abs) 0.0 {x10E3/uL} (Normal) Range: 0.0-0.1 Immature Granulocytes 0 % (Normal) Baso (Absolute) 0.0 {x10E3/uL} (Normal) Range: 0.0-0.2 Eos (Absolute) 0.3 {x10E3/uL} (Normal) Range: 0.0-0.4 Monocytes(Absolute) 0.6 {x10E3/uL} (Normal) Range: 0.1-0.9 Lymphs (Absolute) 1.3 {x10E3/uL} (Normal) Range: 0.7-3.1 Neutrophils (Absolute) 3.3 {x10E3/uL} (Normal) Range: 1.4-7.0 Basos 1 % (Normal) Eos 5 % (Normal) Monocytes 10 % (Normal) Lymphs 23 % (Normal) Neutrophils 61 % (Normal) Platelets 321 {x10E3/uL} (Normal) Range: 150-379 RDW 16.2 % (Abnormal) Range: 12.3-15.4 MCHC 31.8 g/dL (Normal) Range: 31.5-35.7 MCH 24.4 pg (Abnormal) Range: 26.6-33.0 MCV 77 fL (Abnormal) Range: 79-97 Hematocrit 36.2 % (Normal) Range: 34.0-46.6 Hemoglobin 11.5 g/dL (Normal) Range: 11.1-15.9 RBC 4.71 {x10E6/uL} (Normal) Range: 3.77-5.28 WBC 5.5 {x10E3/uL} (Normal) Range: 3.4-10.8 :02 HgA1C , Office (74455) HgA1C , Office 5.6 % (Normal) Range: 4.6 - 7.1 :02 Blood Glucose , Office (90094) Blood Glucose , Office 118 (Normal) :38 HgA1C , Office (15395) HgA1C , Office 5.7 % (Normal) Range: 4.6 - 7.1 :38 Blood Glucose , Office (90224) Blood Glucose , Office 90 (Normal) :20 Microscopic Examination Comments: PATIENT WAS FASTINGPERFORMED BY: [place] [id number] [facility] [id number] Bacteria Few (Normal) Mucus Threads Present (Normal) Epithelial Cells (non 0-10 {/hpf} (Normal) Range: 0 - 10 renal) RBC None seen {/hpf} Range: 0 - 2 (Normal) WBC 0-5 {/hpf} (Normal) Range: 0 - 5 83-Umm-910118: COLON BIOPSY (CHOOSE See Note (Normal) Comments: [facility] [address] [place], [place], [id number] 42 SITE) Comments: Patient: JOSELUIS MCKAY : 1945 (72/F) Acct Num: [id number] Phys: Kylah FLORES,Cruz Unit Num: [id number] Loc: [facility] [place] Specimen: [id number] Received: 01/12/17 - 1302 Spec Type : COLON BX TISSUES TISSUES: GROSS DESCRIPTION Received in fixative is one container labeled with the patient's name and designated mid sigmoid polyp. The specimen consists of one i rregular fragmentof light harris soft tissue that measures 0.2 x 0.2 x 0.1 cm. The specimen is totally submitted in one cassette. / SJ:zach 01/12/17 TC:5 CPT: 81622 HEADER OPERATION: Colonoscopy P RE-OP DIAGNOSIS: History of polyps TISSUE SUBMITTED: Mid sigmoid polyp MICROSCOPIC DESCRIPTION Slides are reviewed. MICROSCOPIC DIAGNOSIS Mid sigmoid polyp, biopsy: Hyperplastic poly p. AM:zach 01/13/17 Signed [facility] 01/13/17 <signature on file> 05-Dkx-829591:34 Bedside Glucose Comments: [facility] Clfo[address] [place], [place] [address] BEDSIDE GLU 94 mg/dL (Normal) Range: 70-110 Comments: MANAGEMENT OF PATIENT CARE PER NURSING PROTOCOL 0-Byf-452899:20 URINALYSIS, W/ MICRO (70698) Comments: PATIENT WAS FASTINGPERFORMED BY: TRUDY [facility] Hhsutu6495 [facility] [id number] Microscopic Examination See below: (Normal) Comments: Microscopic was indicated and was performed. Nitrite, Urine Negative (Normal) Urobilinogen,Semi-Qn 0.2 mg/dL (Normal) Range: 0.2-1.0 Bilirubin Negative (Normal) Occult Blood Negative (Normal) Ketones Negative (Normal) Glucose Negative (Normal) Protein Negative (Normal) WBC Esterase 1+ (Abnormal) Appearance Clear (Normal) Urine-Color Yellow (Normal) pH 6.5 (Normal) Range: 5.0-7.5 Specific [place] 1.008 (Normal) Range: 1.005-1.030 9-Vhv-906437:20 MICROALBUMIN: CREATININE RATIO Comments: PATIENT WAS FASTINGPERFORMED BY: [employer] [facility]70 [facility]ar [facility] HospitalAvantCreditSelect Specialty [facility] [id number] (40443) AND (17211) Microalb/Creat Ratio 11.5 {mg/g_creat} (Normal) Range: 0.0-30.0 Microalbumin, Urine 3.7 ug/mL (Normal) Creatinine, Urine 32.3 mg/dL (Normal) 7-Lfz-067093:20 METABOLIC PANEL, COMPREHENSIVE Comments: PATIENT WAS FASTINGPERFORMED BY: [facility] medical70 [facility]Scout[facility] [id number] (06991) ALT (SGPT) 27 [iU]/L (Normal) Range: 0-32 AST (SGOT) 29 [iU]/L (Normal) Range: 0-40 Alkaline Phosphatase, S 76 [iU]/L (Normal) Range: 39-117 Bilirubin, Total 0.3 mg/dL (Normal) Range: 0.0-1.2 A/G Ratio 1.5 (Normal) Range: 1.2-2.2 Globulin, Total 2.7 g/dL (Normal) Range: 1.5-4.5 Albumin, Serum 4.1 g/dL (Normal) Range: 3.5-4.8 Protein, Total, Serum 6.8 g/dL (Normal) Range: 6.0-8.5 Calcium, Serum 8.9 mg/dL (Normal) Range: 8.7-10.3 Carbon Dioxide, Total 26 mmol/L (Normal) Range: 18-29 Chloride, Serum 100 mmol/L (Normal) Range: 96-106 Potassium, Serum 4.3 mmol/L (Normal) Range: 3.5-5.2 Sodium, Serum 143 mmol/L (Normal) Range: 134-144 BUN/Creatinine Ratio 22 (Normal) Range: 12-28 eGFR If Africn Am 102 mL/min/1.73 (Normal) eGFR If NonAfricn Am 88 mL/min/1.73 (Normal) Creatinine, Serum 0.68 mg/dL (Normal) Range: 0.57-1.00 BUN 15 mg/dL (Normal) Range: 8-27 Glucose, Serum 78 mg/dL (Normal) Range: 65-99 0-Wlt-258510:20 TSH (61065) Comments: PATIENT WAS FASTINGPERFORMED BY: [employer] Upwdcf5647 [address] RoadDublin [place] [id number] TSH 22.910 {uIU/mL} (Abnormal) Range: 0.450-4.500 :20 [id number]-ZEBTIZCBUVX-[id number] (75019) Comments: PATIENT WAS FASTINGPERFORMED BY: [employer] [facility] Ypmfye4857 [address] RoadDublin [place] [id number] AFP, Serum, Tumor Marker 1.6 ng/mL (Normal) Range: 0.0-8.3 Comments: Suzanne ECLIA methodology :20 CALCIFEDIOL (79538) Comments: PATIENT WAS FASTINGPERFORMED BY: [employer] [facility] Wuzvph0222 Mistyr RoadDublin [place] [id number] Vitamin D, 25-Hydroxy 47.7 ng/mL (Normal) Range: 30.0-100.0 Comments: Vitamin D deficiency has been defined by the [place] of[place]icine and an Endocrine Society practice guideline as alevel of serum 25-OH vitamin D less than 20 ng/mL (1,2).The Endocrine Society went on to further define vitamin Dinsufficiency as a level between 21 and 29 ng/mL (2).1. IOM ([place] of Medicine). 2010. Dietary reference intakes for calcium and D. [place]: The National Academies Press.2. Shelby MF, Sergio [place], Anatoly MERCER, et al. Evaluation, treatment, and prevention of vitamin D deficiency: an Endocrine Society clinical practice guideline. JCEM. 2010; 96(7):1911-30. 7-Lui-621086:20 LIPID PANEL (97420) Comments: PATIENT WAS FASTINGPERFORMED BY: Bug MusicRiverview Medical CenterGptzzl8267 [facility] [id number] LDL/HDL Ratio 2.4 {ratio_units} (Normal) Range: 0.0-3.2 Comments: LDL/HDL Ratio Men Women 1/2 Avg.Risk 1.0 1.5 Av g.Risk 3.6 3.2 2X Avg.Risk 6.2 5.0 3X Avg.Risk 8.0 6.1 LDL Cholesterol Calc 147 mg/dL (Abnormal) Range: 0-99 VLDL Cholesterol Tab 34 mg/dL (Normal) Range: 5-40 HDL Cholesterol 61 mg/dL (Normal) Triglycerides 172 mg/dL (Abnormal) Range: 0-149 Cholesterol, Total 242 mg/dL (Abnormal) Range: 100-199 2-Jfs-827738:20 CBC W/AUTO DIFF WBC (84568) Comments: PATIENT WAS FASTINGPERFORMED BY: [employer]lin6370 [facility] [id number] Immature Grans (Abs) 0.0 {x10E3/uL} (Normal) Range: 0.0-0.1 Immature Granulocytes 0 % (Normal) Baso (Absolute) 0.0 {x10E3/uL} (Normal) Range: 0.0-0.2 Eos (Absolute) 0.2 {x10E3/uL} (Normal) Range: 0.0-0.4 Monocytes(Absolute) 0.5 {x10E3/uL} (Normal) Range: 0.1-0.9 Lymphs (Absolute) 1.2 {x10E3/uL} (Normal) Range: 0.7-3.1 Neutrophils (Absolute) 3.4 {x10E3/uL} (Normal) Range: 1.4-7.0 Basos 1 % (Normal) Eos 4 % (Normal) Monocytes 9 % (Normal) Lymphs 22 % (Normal) Neutrophils 64 % (Normal) Platelets 257 {x10E3/uL} (Normal) Range: 150-379 RDW 14.7 % (Normal) Range: 12.3-15.4 MCHC 32.7 g/dL (Normal) Range: 31.5-35.7 MCH 27.5 pg (Normal) Range: 26.6-33.0 MCV 84 fL (Normal) Range: 79-97 Hematocrit 36.4 % (Normal) Range: 34.0-46.6 Hemoglobin 11.9 g/dL (Normal) Range: 11.1-15.9 RBC 4.32 {x10E6/uL} (Normal) Range: 3.77-5.28 WBC 5.4 {x10E3/uL} (Normal) Range: 3.4-10.8 :06 HgA1C , Office (27405) HgA1C , Office 5.5 % (Normal) Range: 4.6 - 7.1 :06 Blood Glucose , Office (43013) Blood Glucose , Office 122 (Normal) :49 Comprehensive Metabolic Profil Comments: [facility] [address] [place], [place], [address] GAP 7 (Normal) Range: 5-15 CO2 29.0 mmol/L (Normal) Range: 21.0-32.0 CL 106 mmol/L (Normal) Range: 98-107 K 3.8 mmol/L (Normal) Range: 3.5-5.1 NA 142 mmol/L (Normal) Range: 136-145 T BILI 0.40 mg/dL (Normal) Range: 0.20-1.00 ALT 26 U/L (Normal) Range: 12-78 ALK P 83 U/L (Normal) Range: 45-117 AST 18 U/L (Normal) Range: 15-37 CA 8.7 mg/dL (Normal) Range: 8.5-10.1 A/G 0.9 {RATIO} (Normal) Range: 0.9-2.4 GLOB 3.9 g/dL (Abnormal) Range: 2.3-3.5 ALB 3.5 g/dL (Normal) Range: 3.4-5.0 T PROT 7.4 g/dL (Normal) Range: 6.4-8.2 BUN/CRE 22.1 {RATIO} (Abnormal) Range: 10-20 EST GFR - AA 102 mL/min (Normal) Comments: GFR Calc EST GFR 84 mL/min (Normal) Comments: Non- GFR Calc CREAT,SERUM 0.72 mg/dL (Normal) Range: 0.55-1.02 Comments: The validity of the calculated GFR AND GFRAA in patients over70 years has not been determined. Clinical correlation isessential. BUN 16 mg/dL (Normal) Range: 7-18 GLU 118 mg/dL (Abnormal) Range: 70-110 Comments: Fasting Glucose result from 110 to <126 mg/dLsuggests IMPAIRED HOMEOSTASIS per A.D.A. criteria. 2-Oam-289031:49 Magnesium Comments: [facility] [address] [place], [address] MG 2.0 mg/dL (Normal) Range: 1.8-2.4 7-Zht-205813:49 Thyroid Stim Hormone (TSH) Comments: [facility] [address] [place], [address] TSH 3.30 {uIU/mL} (Normal) Range: 0.358-3.74 3-Ber-654864:49 Vitamin D,25 Hydroxy Comments: [facility] [address] [place], [address] Vitamin D 25-OH 32.0 ng/mL (Normal) Comments: Vitamin D 25(OH) Status Range Deficiency <20 ng/mL (50nmol/L) Insuffciency 20 - 30 ng/mL (50 - 75 nmol/L) Sufficiency 30 - 100 ng/mL (75 - 250 nmol/L) Toxicity >100 ng/mL (>250 nmol/L) 2-Uoo-214951:20 HgA1C , Office (31520) HgA1C , Office 5.7 % (Normal) Range: 4.6 - 7.1 1-Uwp-436236:20 Blood Glucose , Office (99533) Blood Glucose , Office 74 (Normal) 26-Nmg-623176:26 Culture, Aerobic, Comments: PATIENT NOT FASTINGPERFORMED BY: [facility] Impbyk[address] [place] [id number] Information: RIGHT THUMB SRC:RU Bacterial ID ([id number]) Result 2 BETAGB (Abnormal) Comments: Beta hemolytic Streptococcus, group BHeavy growthPenicillin and ampicillin are drugs of choice for treatment ofbeta- hemolytic streptococcal infections. Susceptibility testing ofpenicillins and other bet a-lactam agents approved by the FDA fortreatment of beta-hemolytic streptococcal infections need not beperformed routinely because nonsusceptible isolates are extremelyrare in any beta-hemolytic strepto coccus and have not been reportedfor Streptococcus pyogenes (group A). (CLSI 2011) S = Susceptible; I = Intermediate; R = Resistant P = Positive; N = Negative ALLISON S are expressed in micrograms per mL Antibiotic RSLT#1 RSLT#2 RSLT#3 RSLT#4Ciprofloxacin SClindamycin SErythromycin SGent amicin SLevofloxacin SLinezolid SMoxifloxacin SOxacillin SPenicillin RQuinupristin/D alfopristin SRifampin STetracycline STrimethoprim/Sulfa SVancomycin S Result 1 Staphylococcus aureus Comments: Moderate growthBased on resistance to penicillin and susceptibility to oxacillinthis isolate would be susceptible to:* Penicillinase-stable penicillins; such as: Cloxacillin Dicloxacillin Nafci (Abnormal) llin* Beta-lactam/beta-lactamase inhibitor combinations; such as: Amoxicillin-clavulanic acid Ampicillin-sulbactam* Antistaphylococcal cephems; such as: Cefaclor Cefuroxime* Antistaphylococc al carbapenems; such as: Imipenem Meropenem Aerobic Bacterial Final report (Abnormal) Culture 31-Qdx-971971:27 HgA1C , Office (00916) HgA1C , Office 5.7 % (Normal) Range: 4.6 - 7.1 16-Bsu-524775:27 Blood Glucose , Office (73394) Blood Glucose , Office 84 (Normal) 72-Sse-887866:30 CALCIFEDIOL (94823) Comments: PATIENT NOT FASTINGPERFORMED BY: [facility] CenterKyxxmz7064 [facility] [id number] Vitamin D, 25-Hydroxy 37.5 ng/mL (Normal) Range: 30.0-100.0 Comments: Vitamin D deficiency has been defined by the [place] of[place]icine and an Endocrine Society practice guideline as alevel of serum 25-OH vitamin D less than 20 ng/mL (1,2).The Endocrine Society went on to further define vitamin Dinsufficiency as a level between 21 and 29 ng/mL (2).1. IOM ([place] of Medicine). 2010. Dietary reference intakes for calcium and D. [place]: The National Academies Press.2. Shelby MF, Sergio EAST, Anatoly MERCER, et al. Evaluation, treatment, and prevention of vitamin D deficiency: an Endocrine Society clinical practice guideline. JCEM. 2010; 96(7):1911-30. :30 T4, FREE (THYROXINE) (20638) Comments: PATIENT NOT FASTINGPERFORMED BY: [facility] Iq[address]pe[address]bl[address] [place] [id number] T4,Free(Direct) 1.75 ng/dL (Normal) Range: 0.82-1.77 : TSH (22079) Comments: PATIENT NOT FASTINGPERFORMED BY: [facility] Adsnqn3497 Mistry RoadDublin [place] [id number] TSH 0.795 {uIU/mL} (Normal) Range: 0.450-4.500 :30 Metabolic Panel, Comments: PATIENT NOT FASTINGPERFORMED BY: [facility] Fhxfkc[address] [facility] [place] [id number] Information: [id number], [id number] Comprehensive (97115) ALT (SGPT) 26 [iU]/L (Normal) Range: 0-32 AST (SGOT) 30 [iU]/L (Normal) Range: 0-40 Alkaline Phosphatase, S 58 [iU]/L (Normal) Range: 39-117 Bilirubin, Total 0.3 mg/dL (Normal) Range: 0.0-1.2 A/G Ratio 1.6 (Normal) Range: 1.1-2.5 Globulin, Total 2.7 g/dL (Normal) Range: 1.5-4.5 Albumin, Serum 4.2 g/dL (Normal) Range: 3.5-4.8 Protein, Total, Serum 6.9 g/dL (Normal) Range: 6.0-8.5 Calcium, Serum 9.4 mg/dL (Normal) Range: 8.7-10.3 Carbon Dioxide, Total 25 mmol/L (Normal) Range: 18-29 Chloride, Serum 103 mmol/L (Normal) Range: 97-108 Potassium, Serum 4.0 mmol/L (Normal) Range: 3.5-5.2 Sodium, Serum 145 mmol/L (Abnormal) Range: 134-144 BUN/Creatinine Ratio 34 (Abnormal) Range: 11-26 eGFR If Africn Am 102 mL/min/1.73 (Normal) eGFR If NonAfricn Am 89 mL/min/1.73 (Normal) Creatinine, Serum 0.68 mg/dL (Normal) Range: 0.57-1.00 BUN 23 mg/dL (Normal) Range: 8-27 Glucose, Serum 92 mg/dL (Normal) Range: 65-99 7-Teb-176085:47 Urinalysis, Complete Comments: Order Date: 01/24/16How was Urine Obtained? CLEAN [facility] [address] [place], [address] MUCUS, URINE 0 SEEN {/hpf} (Normal) BACTERIA 0 SEEN {/hpf} (Normal) SQUAM EPI 0-5 SEEN {/hpf} (Normal) Range: 5-10 RBC-UA 0 SEEN {/hpf} (Normal) Range: 0-5 WBC 0-5 SEEN {/hpf} (Normal) Range: 0-5 LEUK ESTERASE 100 /ul (Abnormal) OCCULT BLOOD-UR Negative /ul (Normal) NITRITE UR Negative (Normal) UROBILI Normal mg/dL (Normal) PROT DIPSTX Negative mg/dL (Normal) pH UR 8.0 (Normal) Range: 5.0 - 8.0 SP.GR. DIPSTX 1.010 (Normal) Range: 1.002-1.030 KETONE UR Negative mg/dL (Normal) BILIRUBIN URINE Negative mg/dL (Normal) GLUCOSE, UR Normal mg/dL (Normal) CLARITY Sl. Cloudy (Normal) COLOR Yellow (Normal) :47 Urine Drug Screen (VISTA) Comments: [facility] [address] [place], [address] THC NEGATIVE (Normal) PCP NEGATIVE (Normal) OPIATES NEGATIVE (Normal) METHADONE NEGATIVE (Normal) ECSTACY NEGATIVE (Normal) COCAINE NEGATIVE (Normal) BENZODIAZIPINE NEGATIVE (Normal) BARBITIURATES NEGATIVE (Normal) AMPHETAMINES NEGATIVE (Normal) VISTA UDS PH 8 (Normal) TO BE CONFIRMED (Normal) Comments: CONFIRMATORY TESTING FOR ALL POSITIVE URINE DRUG SCREENRESULTS WILL ONLY BE SENT OUT UPON PHYSICIAN ORDER.VISTA Urine Drug Screen methods provide only preliminaryanalytical test results. A more specific alternate chemicalmethod must be used in order to obtain a confirmedanalytical result. Gas chromatography/mass spectrometery(GC/MS) is the preferred confirmatory method. Clinicalconsideration and profe ssional judgement should be appliedto any drug of abuse test result, particularly whenpreliminary positive results are used.URINE TCA TESTING MUST BE ORDERED SEPARATELY. USE TESTMNEMONIC: [facility] 1-Ofr-088022:17 Alcohol, Blood (Medical)-Serum Comments: [facility] [address] [place], [place], [id number] SERUM ETOH 11.0 mg/dL (Normal) Comments: The serum:whole blood ethanol ratio is approximately 1.14and varies slightly with hematocrit.Medical Alcohol reference interval and critical value innon-tolerant individuals; 50 - 100 Impairment 100 Intoxication 100 - 250 Severe Poisoning 250 - 400 Deep/possible fatal coma 1-Vns-419311:17 Basic Metabolic Profile (BMP) Comments: [facility] [address] [place], [place], [id number] GAP 7 (Normal) Range: 5-15 CO2 30.0 mmol/L (Normal) Range: 21.0-32.0 CL 102 mmol/L (Normal) Range: 98-107 K 4.1 mmol/L (Normal) Range: 3.5-5.1 NA 139 mmol/L (Normal) Range: 136-145 CA 8.8 mg/dL (Normal) Range: 8.5-10.1 BUN/CRE 32.8 {RATIO} (Abnormal) Range: 10-20 Estimated CRCL 39.50 ml/min (Normal) EST GFR - AA 106 mL/min (Normal) Comments: GFR Calc EST GFR 88 mL/min (Normal) Comments: Non- GFR Calc CREAT,SERUM 0.70 mg/dL (Normal) Range: 0.55-1.20 Comments: The validity of the calculated GFR AND GFRAA in patients over70 years has not been determined. Clinical correlation isessential. BUN 23 mg/dL (Abnormal) Range: 7-18 GLU 85 mg/dL (Normal) Range: 70-110 :17 CBC W/Diff, Automated Comments: [facility] [address] [place], [address] Absolute Lymph 1.58 {X10_3/ul} (Normal) Range: 0.83-4.51 Absolute Neut 3.3 {X10_3/uL} (Normal) Range: 2.0-7.7 IM GRAN % 0.400 % (Normal) Range: 0.0-0.9 Comments: IG% - Immature Granulocytes (promyelocytes, myelocytes andmetamyelocytes) > 1% indicates that a LEFT SHIFT is Present. BASO% 0.4 % (Normal) Range: 0-1 EO% 3.3 % (Normal) Range: 0-5 MONO% 11.0 % (Abnormal) Range: 0-10 LY% 27.7 % (Normal) Range: 19-41 NEUT% 57.2 % (Normal) Range: 47-70 MPV 9.3 fL (Normal) Range: 6.2-12.0 PLT 299 K/mm3 (Normal) Range: 150-450 RDW SD 43.6 fL (Normal) Range: 35.1-43.9 RDW CV 14.3 % (Normal) Range: 11.6-14.6 MCHC 32.2 {g/gl} (Normal) Range: 32-36 MCH 27.6 pg (Normal) Range: 27.0-32.0 MCV 85.8 fL (Normal) Range: 81-99 HCT 41.6 % (Normal) Range: 37-47 HGB 13.4 g/dL (Normal) Range: 12.0-15.0 RBC 4.85 {M/mm3} (Normal) Range: 4.2-5.4 WBC 5.7 K/mm3 (Normal) Range: 4.4-11.0 8-Qhn-504845:17 Thyroid Stim Hormone (TSH) Comments: [facility] [address] [place], [address] TSH 6.50 {uIU/mL} (Abnormal) Range: 0.358-3.74 :54 T4 Free Direct Comments: [facility] [address] [place], [address] T4 FREE DIRECT 1.03 ng/dL (Normal) Range: 0.76-1.46 :54 Thyroid Stim Hormone (TSH) Comments: [facility] [address] [place], [id number] TSH 6.21 {uIU/mL} (Abnormal) Range: 0.358-3.74 :47 TSH (THYROID STIMULATING Comments: PATIENT NOT FASTINGPERFORMED BY: [facility] Zyijrh7931 [facility] [id number] Information: [id number] HORMONE) (62875) TSH 12.540 {uIU/mL} (Abnormal) Range: 0.450-4.500 :08 Comprehensive Metabolic Profil Comments: [facility] [address] [place], [place], [address] GAP 6 (Normal) Range: 5-15 CO2 28.0 mmol/L (Normal) Range: 21.0-32.0 CL 109 mmol/L (Abnormal) Range: 98-107 K 4.2 mmol/L (Normal) Range: 3.5-5.1 NA 143 mmol/L (Normal) Range: 136-145 T BILI 0.40 mg/dL (Normal) Range: 0.20-1.00 ALT 39 U/L (Normal) Range: 12-78 ALK P 66 U/L (Normal) Range: 50-136 AST 28 U/L (Normal) Range: 15-37 CA 8.6 mg/dL (Normal) Range: 8.5-10.1 A/G 0.9 {RATIO} (Normal) Range: 0.9-2.4 GLOB 4.0 g/dL (Abnormal) Range: 2.3-3.5 ALB 3.7 g/dL (Normal) Range: 3.4-5.0 T PROT 7.7 g/dL (Normal) Range: 6.4-8.2 BUN/CRE 27.9 {RATIO} (Abnormal) Range: 10-20 EST GFR - AA 103 mL/min (Normal) Comments: GFR Calc EST GFR 85 mL/min (Normal) Comments: Non- GFR Calc CREAT,SERUM 0.72 mg/dL (Normal) Range: 0.55-1.20 Comments: The validity of the calculated GFR AND GFRAA in patients over70 years has not been determined. Clinical correlation isessential. BUN 20 mg/dL (Abnormal) Range: 7-18 GLU 113 mg/dL (Abnormal) Range: 70-110 Comments: Fasting Glucose result from 110 to <126 mg/dLsuggests IMPAIRED HOMEOSTASIS per A.D.A. criteria. :08 Free T3 Comments: [facility] [address] [place], [phone] FREE T3 1.7 pg/mL (Abnormal) Range: 2.18-3.98 :08 Magnesium Comments: [facility] [address] [place], [id number] MG 2.0 mg/dL (Normal) Range: 1.8-2.4 :08 T4 Free Direct Comments: [facility] [address] [place], [phone] FREE DIRECT 1.01 ng/dL (Normal) Range: 0.76-1.46 :08 Thyroid Stim Hormone (TSH) Comments: [facility] [address] [place], [phone] TSH 4.70 {uIU/mL} (Abnormal) Range: 0.358-3.74 :08 Vitamin D,25 Hydroxy Comments: [facility] [address] [place], [address] Vitamin D 25-OH 38.3 ng/mL (Normal) Comments: Vitamin D 25(OH) Status Range Deficiency <20 ng/mL (50nmol/L) Insuffciency 20 - 30 ng/mL (50 - 75 nmol/L) Sufficiency 30 - 100 ng/mL (75 - 250 nmol/L) Toxicity >100 ng/mL (>250 nmol/L) :03 CALCIFEDIOL (92447) Comments: PATIENT NOT FASTINGPERFORMED BY: [facility] Ranbgv7601 [facility] [place] [id number] Vitamin D, 25-Hydroxy 38.4 ng/mL (Normal) Range: 30.0-100.0 Comments: Vitamin D deficiency has been defined by the [place] of[place]icine and an Endocrine Society practice guideline as alevel of serum 25-OH vitamin D less than 20 ng/mL (1,2).The Endocrine Society went on to further define vitamin Dinsufficiency as a level between 21 and 29 ng/mL (2).1. IOM ([place] of Medicine). 2010. Dietary reference intakes for calcium and D. [place]: The National Academies Press.2. Shelby MF, Sergio EAST, Anatoly MERCER, et al. Evaluation, treatment, and prevention of vitamin D deficiency: an Endocrine Society clinical practice guideline. JCEM. 2010; 96(7):1911-30. :03 T4, FREE (THYROXINE) Comments: PATIENT NOT FASTINGPERFORMED BY: [facility] Fcumub8961 [facility] [id number] Information: [id number] (66203) T4,Free(Direct) 1.08 ng/dL (Normal) Range: 0.82-1.77 :03 T3, FREE (TRIDOTHYRONINE) (66461) Comments: PATIENT NOT FASTINGPERFORMED BY: [facility] Rzapah6496 [facility] [id number] Triiodothyronine,Free,Serum 2.2 pg/mL (Normal) Range: 2.0-4.4 :03 TSH (08173) Comments: PATIENT NOT FASTINGPERFORMED BY: [facility] Obtqzf0890 [facility] [id number] TSH 25.300 {uIU/mL} (Abnormal) Range: 0.450-4.500 2-Vsw-192606:10 Urinalysis, Complete Comments: How was Urine Obtained? CLEAN [facility] [address]rrzz[address] [place], [id number] ; managed by another doctor MUCUS, URINE 0 SEEN {/hpf} (Normal) BACTERIA 0 SEEN {/hpf} (Normal) SQUAM EPI 0-5 SEEN {/hpf} (Normal) Range: 5-10 RBC-UA 0-5 SEEN {/hpf} (Normal) Range: 0-5 WBC 0-5 SEEN {/hpf} (Normal) Range: 0-5 LEUK ESTERASE 500 /ul (Abnormal) OCCULT BLOOD-UR 25 /ul (Abnormal) NITRITE UR Negative (Normal) UROBILI Normal mg/dL (Normal) PROT DIPSTX Negative mg/dL (Normal) pH UR 6.5 (Normal) Range: 5.0 - 8.0 SP.GR. DIPSTX 1.010 (Normal) Range: 1.002-1.030 KETONE UR Negative mg/dL (Normal) BILIRUBIN URINE Negative mg/dL (Normal) GLUCOSE, UR Normal mg/dL (Normal) CLARITY Clear (Normal) COLOR Yellow (Normal) 0-Vsb-359208:30 Basic Metabolic Profile (BMP) Comments: 'TROP' Serial specimen #1, #2, #3, or #4: [address] [place] [address] [address] [place], [place], [phone] GAP 1 (Abnormal) Range: 5-15 CO2 29.0 mmol/L (Normal) Range: 21.0-32.0 CL 109 mmol/L (Abnormal) Range: 98-107 K 3.6 mmol/L (Normal) Range: 3.5-5.1 NA 139 mmol/L (Normal) Range: 136-145 CA 8.3 mg/dL (Abnormal) Range: 8.5-10.1 BUN/CRE 23.1 {RATIO} (Abnormal) Range: 10-20 Estimated CRCL 41.99 ml/min (Normal) EST GFR - AA 108 mL/min (Normal) Comments: GFR Calc EST GFR 89 mL/min (Normal) Comments: Non- GFR Calc CREAT,SERUM 0.69 mg/dL (Normal) Range: 0.55-1.20 Comments: The validity of the calculated GFR AND GFRAA in patients over70 years has not been determined. Clinical correlation isessential. BUN 16 mg/dL (Normal) Range: 7-18 GLU 108 mg/dL (Normal) Range: 70-110 :30 CBC W/Diff, Automated Comments: [facility] [address] [place], [address] Absolute Lymph 1.66 {X10_3/ul} (Normal) Range: 0.83-4.51 Absolute Neut 3.3 {X10_3/uL} (Normal) Range: 2.0-7.7 IM GRAN % 0.200 % (Normal) Range: 0.0-0.9 Comments: IG% - Immature Granulocytes (promyelocytes, myelocytes andmetamyelocytes) > 1% indicates that a LEFT SHIFT is Present. BASO% 0.5 % (Normal) Range: 0-1 EO% 2.6 % (Normal) Range: 0-5 MONO% 10.3 % (Abnormal) Range: 0-10 LY% 28.9 % (Normal) Range: 19-41 NEUT% 57.5 % (Normal) Range: 47-70 MPV 9.3 fL (Normal) Range: 6.2-12.0 PLT 277 K/mm3 (Normal) Range: 150-450 RDW SD 44.1 fL (Abnormal) Range: 35.1-43.9 RDW CV 14.4 % (Normal) Range: 11.6-14.6 MCHC 31.9 {g/gl} (Abnormal) Range: 32-36 MCH 27.3 pg (Normal) Range: 27.0-32.0 MCV 85.6 fL (Normal) Range: 81-99 HCT 35.7 % (Abnormal) Range: 37-47 HGB 11.4 g/dL (Abnormal) Range: 12.0-15.0 RBC 4.17 {M/mm3} (Abnormal) Range: 4.2-5.4 WBC 5.7 K/mm3 (Normal) Range: 4.4-11.0 :30 Troponin-I Comments: 'TROP' Serial specimen #1, #2, #3, or #4: [facility] [address] [place], [address] TROPONIN-I < 0.02 ng/mL (Normal) Comments: TROPONIN-I EXPECTED VALUES <0.05 NEGATIVE 0.06 - 0.59 AT RISK OF VT > OR = 0.60 SUGGEST VT 16-Uba-559909:20 Pap IG, HPV-hr Comments: No. of containers..01 CYTYC Thin Prep VialPERFORMED BY: WB Miradia Zgntniolhj045 [facility] W [id number] BY: =G [facility] [address] W [id number] Information: [id number] HPV, high-risk Negative Comments: This high-risk HPV test detects thirteen high- risk types(16/18/31/33/35/39/45/51/52/56/58/59/68) without differentiation. . (Normal) Note: PAPSMR Comments: The Pap smear is a screening test designed to aid in the detection ofpremalignant and malignant conditions of the uterine cervix. It is not adiagnostic procedure and should not be used as the sole mean (Normal) s of detectingcervical cancer. Both false-positive and false-negative reports do occur. .This liquid based ThinPrep(R) pap test w as screened with theuse of an image guided system. See Note . (Normal) DIAGNOSIS: SPRCS Comments: NEGATIVE FOR INTRAEPITHELIAL LESION AND MALIGNANCY.CELLULAR CHANGES ASSOCIATED WITH ATROPHY ARE PRESENT.THIS SPECIMEN WAS RESCREENED PART OF OUR ELECTRICAL AND RADIO MECHANIC PROGRAM.Satisfactory for evaluation. (Normal) Endocervical component may not bedistinguished in cases of atrophy.Areas of partially obscuring inflammtory exudate are present.Z11.51Z12.4Jaeloy Holliday, Fire Production Operator (ASCP)Bernadine Camargo Fire Production Operator (ASCP) Please note SPRCS Comments: No. of containers..01 CYTYC Thin Prep VialPERFORMED BY: WB Bug Musicrp [address] [place] [address] W [id number] BY: =G Lab2threadsrp Jbczxwtged00177 Rodriguez Streetromeouniversal health services W [id number] (Normal) Comments: We have received your request for additional testing or testverification. You will be notified if we are unable to processyour request. 0:20 -September Written COMMNT Comments: No. of containers..01 CYTYC Thin Prep VialPERFORMED BY: WB [address] [id number] BY: =G [address] [id number] Authoriz RCV (Normal) Comments: Written Authorization Received.AUTHORIZATION SIGNED ROSA ISELA MICKI ON 10/11/2015 0:20 39-Vtw-968528:49 OVA & PARASITE DIR SMEAR Comments: PATIENT NOT FASTINGPERFORMED BY: [facility] [place] 7174470 [facility] [id number] ([id number]) Result 1 NOCP (Normal) Comments: No ova, cysts, or parasites seen. Ova + Parasite Exam Final report (Normal) Comments: These results were obtained using wet preparation(s) and trichromestained smear. This test does not include testing for Cryptosporidiumparvum, Cyclospora, or Microsporidia. 63-Plx-967368:49 OCCULT BLOOD FECES SCREEN Comments: PATIENT NOT FASTINGPERFORMED BY: [facility] [place] 7174470 [facility] [id number] (70874) Occult Blood, Fecal, IA Negative (Normal) 20-Brv-408091:49 LEUKOCYTE COUNT, FECAL Comments: PATIENT NOT FASTINGPERFORMED BY: [facility] [place] 7174470 [facility] [id number] (76542) Result 1 NWBC (Normal) Comments: No white blood cells seen. White Blood Cells (WBC), Final report (Normal) Stool 85-Zgn-008106:50 C-DIFFICILE, STOOL (91334) Comments: PATIENT NOT FASTINGPERFORMED BY: [place] [id number] [facility] [id number] Information: [id number] C difficile Toxins A+B, EIA Negative (Normal) 12-Pcu-073658:49 RUBENS CULTURE-STOOL (44004) Comments: PATIENT NOT FASTINGPERFORMED BY: [facility] Mnxvkc6778 [facility] [id number] Information: SRC:STL [id number] E coli Shiga Toxin EIA Negative (Normal) Result 1 NCI (Normal) Comments: No Campylobacter species isolated. Campylobacter Culture Final report (Normal) Result 1 NSS (Normal) Comments: No Salmonella or Shigella recovered. Salmonella/Shigella Screen Final report (Normal) [id number] Calcium Ionized Comments: [facility] (refer to report for specific site)refer to report for address and phone number [place] 4804 4.8 mg/dL (Normal) Range: 4.5-5.6 Comments: Performed at: [address] [id number] Director: Rocky Dudley PhD, Phone: [phone] [id number] URINE RUBENS CULTURE-JAYDEN COL Comments: PATIENT NOT FASTINGPERFORMED BY: [address] [id number] Information: SRC:[facility] [place] [id number] COUNT ([id number]) Result 1 MUG (Normal) Comments: Mixed urogenital flora4,000 Colonies/mL Urine Culture,Comprehensive Final report (Normal) [id number] PT (PROTHROMBIN TIME) (96166) Comments: PATIENT NOT FASTINGPERFORMED BY: [address] [id number] Prothrombin Time 10.1 {sec} (Normal) Range: 9.1-12.0 INR 1.0 (Normal) Range: 0.8-1.2 Comments: Reference interval is for non-anticoagulated patients. . Suggested INR therapeutic range for Vitamin K anta gonist therapy: Standard Dose (moderate intensity therapeutic range): 2.0 - 3.0 Higher intensity therapeutic range 2.5 - 3.5 [id number] CBC, Platelets & Auto Comments: PATIENT NOT FASTINGPERFORMED BY: [address] [id number] Information: [id number] Diff (41910) Immature Grans (Abs) 0.0 {x10E3/uL} (Normal) Range: 0.0-0.1 Immature Granulocytes 0 % (Normal) Baso (Absolute) 0.0 {x10E3/uL} (Normal) Range: 0.0-0.2 Eos (Absolute) 0.2 {x10E3/uL} (Normal) Range: 0.0-0.4 Monocytes(Absolute) 0.7 {x10E3/uL} (Normal) Range: 0.1-0.9 Lymphs (Absolute) 1.5 {x10E3/uL} (Normal) Range: 0.7-3.1 Neutrophils (Absolute) 3.5 {x10E3/uL} (Normal) Range: 1.4-7.0 Basos 0 % (Normal) Eos 3 % (Normal) Monocytes 12 % (Normal) Lymphs 25 % (Normal) Neutrophils 60 % (Normal) Platelets 291 {x10E3/uL} (Normal) Range: 150-379 RDW 13.8 % (Normal) Range: 12.3-15.4 MCHC 32.4 g/dL (Normal) Range: 31.5-35.7 MCH 26.6 pg (Normal) Range: 26.6-33.0 MCV 82 fL (Normal) Range: 79-97 Hematocrit 36.4 % (Normal) Range: 34.0-46.6 Hemoglobin 11.8 g/dL (Normal) Range: 11.1-15.9 RBC 4.44 {x10E6/uL} (Normal) Range: 3.77-5.28 WBC 6.0 {x10E3/uL} (Normal) Range: 3.4-10.8 72-Uzs-220588:18 Metabolic Panel, Basic Comments: PATIENT NOT FASTINGPERFORMED BY: [facility]CoRiverview Medical CenterNseabc2203 [facility] [id number] (10356) Calcium, Serum 10.5 mg/dL (Abnormal) Range: 8.7-10.3 Carbon Dioxide, Total 25 mmol/L (Normal) Range: 18-29 Chloride, Serum 105 mmol/L (Normal) Range: 97-108 Potassium, Serum 4.4 mmol/L (Normal) Range: 3.5-5.2 Sodium, Serum 144 mmol/L (Normal) Range: 134-144 BUN/Creatinine Ratio 39 (Abnormal) Range: 11-26 eGFR If Africn Am 107 mL/min/1.73 (Normal) eGFR If NonAfricn Am 93 mL/min/1.73 (Normal) Creatinine, Serum 0.61 mg/dL (Normal) Range: 0.57-1.00 BUN 24 mg/dL (Normal) Range: 8-27 Glucose, Serum 76 mg/dL (Normal) Range: 65-99 74-Yro-299478:40 Blood Glucose , Office (20249) Blood Glucose , Office 112 (Normal) :40 HgA1C , Office (82742) HgA1C , Office 5.6 % (Normal) Range: 4.6 - 7.1 :49 Urinalysis, Office (97814) UA - LEUKOCYTE ESTERASE Small (Normal) UA - NITRITE Negative (Normal) URINE UROBILINGN JAYDEN TIMED Normal mg/dL (Normal) UA - PROTEIN Negative mg/dL (Normal) UA - PH 6 (Abnormal) UA - BLOOD Negative (Normal) UA - SPECIFIC GRAVITY 1.030 (Abnormal) UA - KETONES Negative mg/dL (Normal) UA - BILIRUBIN Negative (Normal) UA - GLUCOSE Negative (Normal) 1-Gxd-350032:00 Basic Metabolic Profile (BMP) Comments: [facility] [address] [place], [place], [address] GAP 6 (Normal) Range: 5-15 CO2 28.0 mmol/L (Normal) Range: 21.0-32.0 CL 110 mmol/L (Abnormal) Range: 98-107 K 4.3 mmol/L (Normal) Range: 3.5-5.1 NA 144 mmol/L (Normal) Range: 136-145 CA 10.3 mg/dL (Abnormal) Range: 8.5-10.1 BUN/CRE 28.5 {RATIO} (Abnormal) Range: 10-20 EST GFR - AA 106 mL/min (Normal) Comments: GFR Calc EST GFR 88 mL/min (Normal) Comments: Non- GFR Calc CREAT,SERUM 0.70 mg/dL (Normal) Range: 0.55-1.20 Comments: The validity of the calculated GFR AND GFRAA in patients over70 years has not been determined. Clinical correlation isessential. BUN 20 mg/dL (Abnormal) Range: 7-18 GLU 89 mg/dL (Normal) Range: 70-110 8-Tgh-443318:33 CALCIFIDIOL (73442) VIT D 25 Comments: fax copy to Dr. Mitchell [phone]; PATIENT NOT FASTINGPERFORMED BY: [employer] Blnrzv9083 [facility] [place] [id number] Vitamin D, 25-Hydroxy 34.2 ng/mL (Normal) Range: 30.0-100.0 Comments: Vitamin D deficiency has been defined by the [place] ofMedicine and an Endocrine Society practice guideline as alevel of serum 25-OH vitamin D less than 20 ng/mL (1,2).The Endocrine Society went on to further define vitamin Dinsufficiency as a level between 21 and 29 ng/mL (2).1. IOM ([place] of Medicine). 2010. Dietary reference intakes for calcium and D. [place]: The National Academies Press.2. Shelby MF, Sergio NC, Anatoly MERCER, et al. Evaluation, treatment, and prevention of vitamin D deficiency: an Endocrine Society clinical practice guideline. JCEM. 2010; 96(7):1911-30. 7-Upl-023864:33 PTH (PARATHORMONE) (43397) Comments: fax copy to Dr. Mitchell [phone]; PATIENT NOT FASTINGPERFORMED BY: [employer] [facility] Zwbmlu3072 37coinsThe [facility] Hospitalin [place] [id number] PTH, Intact 67 pg/mL (Abnormal) Range: 15-65 3-Ggg-476964:33 Metabolic Panel, Comments: fax to Dr. Mitchell fax [phone]; PATIENT NOT FASTINGPERFORMED BY: [facility] Qbizqr4724 [facility] [id number] Information: [id number] Comprehensive (44077) ALT (SGPT) 17 [iU]/L (Normal) Range: 0-32 AST (SGOT) 24 [iU]/L (Normal) Range: 0-40 Alkaline Phosphatase, S 76 [iU]/L (Normal) Range: 39-117 Bilirubin, Total 0.4 mg/dL (Normal) Range: 0.0-1.2 A/G Ratio 1.7 (Normal) Range: 1.1-2.5 Globulin, Total 2.6 g/dL (Normal) Range: 1.5-4.5 Albumin, Serum 4.5 g/dL (Normal) Range: 3.6-4.8 Protein, Total, Serum 7.1 g/dL (Normal) Range: 6.0-8.5 Calcium, Serum 11.1 mg/dL Range: 8.7-10.3 (Abnormal) Carbon Dioxide, Total 24 mmol/L (Normal) Range: 18-29 Chloride, Serum 101 mmol/L Range: 97-108 (Normal) Potassium, Serum 4.4 mmol/L Range: 3.5-5.2 (Normal) Sodium, Serum 142 mmol/L Range: 134-144 (Normal) BUN/Creatinine Ratio 24 (Normal) Range: 11-26 eGFR If Africn Am 99 mL/min/1.73 (Normal) eGFR If NonAfricn Am 86 mL/min/1.73 (Normal) Creatinine, Serum 0.72 mg/dL Range: 0.57-1.00 (Normal) BUN 17 mg/dL (Normal) Range: 8-27 Glucose, Serum 65 mg/dL (Normal) Range: 65-99 Calcium, Ionized, Serum 6.2 mg/dL Comments: PATIENT NOT FASTINGPERFORMED BY: [employer] Kscrpn2752 [facility] [id number] :11 (Abnormal) Range: 4.5-5.6 PTH, Intact 59 pg/mL (Normal) Comments: PATIENT NOT FASTINGPERFORMED BY: [employer] Sqalwz0776 [facility] [id number] :11 Range: 15-65 Thyroxine (T4) 8.6 ug/dL (Normal) Comments: PATIENT NOT FASTINGPERFORMED BY: [employer] Hrshkp0393 [facility] [id number] :11 Range: 4.5-12.0 Triiodothyronine (T3) 96 ng/dL (Normal) Comments: PATIENT NOT FASTINGPERFORMED BY: [employer] Groxaj4261 [facility] [id number] :11 Range: 71-180 TSH 0.985 {uIU/mL} Comments: PATIENT NOT FASTINGPERFORMED BY: Bug MusicRiverview Medical CenterFtnjzs5896 [facility] [id number] Information: [id number] :11 (Normal) Range: 0.450-4.500 :27 HgA1C , Office (45654) HgA1C , Office 6.0 % (Normal) Range: 4.6 - 7.1 :27 Blood Glucose , Office (31043) Blood Glucose , Office 168 (Normal) Comments: already ate today :54 Basic Metabolic Panel (8) Comments: PATIENT NOT FASTINGPERFORMED BY: [facility] Hhwilx9438 [facility] [id number] Information: [id number] Calcium, Serum 10.5 mg/dL (Abnormal) Range: 8.7-10.3 Carbon Dioxide, Total 24 mmol/L (Normal) Range: 18-29 Chloride, Serum 101 mmol/L (Normal) Range: 97-108 Potassium, Serum 4.2 mmol/L (Normal) Range: 3.5-5.2 Sodium, Serum 140 mmol/L (Normal) Range: 134-144 BUN/Creatinine Ratio 25 (Normal) Range: 11-26 eGFR If Africn Am 103 mL/min/1.73 (Normal) eGFR If NonAfricn Am 90 mL/min/1.73 (Normal) Creatinine, Serum 0.69 mg/dL (Normal) Range: 0.57-1.00 BUN 17 mg/dL (Normal) Range: 8-27 Glucose, Serum 86 mg/dL (Normal) Range: 65-99 :18 HgA1C , Office (28287) HgA1C , Office 5.8 % (Normal) Range: 4.6 - 7.1 :18 Blood Glucose , Office (50545) Blood Glucose , Office 74 (Normal) :42 Culture, Urine Comments: Test performed at:[facility] [address] [place], [place] [id number] CUUR See Note (Normal) Comments: Urine CultureORGANISM 1: Staphylococcus aureusColony Count 1000-10,000 Staphylococcus aureus: REACTION Benzylpenicillin NF >=0.5 R Cefoxitin *NF - Inducable Clindamycin Resistan - Gentamicin $ <=0.5 S Levofloxacin $ <= 0.12 S Linezolid $$$$ 2 S Moxifloxicin *NF <=0.25 S Nitrofurantoin $ 32 S Oxacillin NF 0.5 S Rifampin $$ <=0.5 S Tetracycline NF <=1 S Trimethoprim/Sulfametho $ <=10 S Vancomycin $ 1 S(NF) indicates non-formulary drug at [facility]. Approval by Infectious Disease Specialist required before non-formulary drugs may be or dered and/or dispensed. * CLSI guidelines does not recommend testing of cephalosporins. This interpretation is deduced from Beta-lactam/penicillin results. 83-Dxt-420380:42 Urinalysis, Routine (Dipstick) Comments: How was Urine Obtained? CLEAN CATCHTest performed at:[facility] [address] [place] [address] LEUK ESTERASE 500 /ul (Abnormal) OCCULT BLOOD-UR Negative /ul (Normal) NITRITE UR Negative (Normal) UROBILI Normal mg/dL (Normal) PROT DIPSTX Negative mg/dL (Normal) pH UR 5.0 (Normal) Range: 5.0 - 8.0 SP.GR. DIPSTX 1.025 (Normal) Range: 1.002-1.030 KETONE UR Negative mg/dL (Normal) BILIRUBIN URINE Negative mg/dL (Normal) GLUCOSE, UR Normal mg/dL (Normal) CLARITY Sl. Cloudy (Normal) COLOR Yellow (Normal) 59-Iqe-322299:01 Bedside Glucose Comments: Test performed at:[facility] [address] [facility] [place] [address] BEDSIDE GLU 94 mg/dL (Normal) Range: 70-110 Comments: Policy and Physicians Orders followedMANAGEMENT OF PATIENT CARE PER NURSING PROTOCOL 9-Req-280602:45 Culture, Urine Comments: Test performed at:[facility] [address] [place] [address] CUUR See Note (Normal) Comments: Urine CultureORGANISM 1: Proteus mirabilisColony Count 80,000-100,000 Proteus mirabilis: REACTION Amoxacillin/Clavulanic Acid $ <=2 S Ampicillin $ <=2 S Ampicillin/Sulbactam $ <=2 S Cefazolin $ <=4 S Cefepime $ <=1 S Ceftriaxone $ <=1 S Ciprofloxacin $ <=0.25 S Ertapenim $$$ <=0.5 S Gentamicin $ <=1 S Levofloxacin $ <=0.12 S Nitrofurantoin $ 128 R Piperacillin/Tazobactam $$ <=4 S To bramycin $ <=1 S Trimethoprim/Sulfametho $ <=20 S(NF) indicates non-formulary drug at [facility]. Approval by Infectio us Disease Specialist required before non-formulary drugs may be ordered and/or dispensed. 9-Sdc-101251:45 Urinalysis, Routine (Dipstick) Comments: How was Urine Obtained? CLEAN CATCHTest performed at:[facility] [address] [place] [address] LEUK ESTERASE 25 /ul (Abnormal) OCCULT BLOOD-UR 150 /ul (Abnormal) NITRITE UR Negative (Normal) UROBILI Normal mg/dL (Normal) PROT DIPSTX Negative mg/dL (Normal) pH UR 6.0 (Normal) Range: 5.0 - 8.0 SP.GR. DIPSTX 1.015 (Normal) Range: 1.002-1.030 KETONE UR Negative mg/dL (Normal) BILIRUBIN URINE Negative mg/dL (Normal) GLUCOSE, UR Normal mg/dL (Normal) CLARITY Clear (Normal) COLOR Yellow (Normal) 3-Bzy-976205:12 Microscopic Examination Comments: PATIENT WAS FASTINGPERFORMED BY: LabCoRiverview Medical CenterClpodk4510 [facility] [id number] Bacteria Few (Normal) Mucus Threads Present (Normal) Epithelial Cells (non renal) 0-10 {/hpf} (Normal) Range: 0 - 10 RBC 0-2 {/hpf} (Normal) Range: 0 - 2 WBC 6-10 {/hpf} (Abnormal) Range: 0 - 5 1-Oxb-782055:09 Urinalysis, Office (22664) UA - LEUKOCYTE ESTERASE Small (Normal) UA - NITRITE Negative (Normal) URINE UROBILINGN JAYDEN TIMED Normal mg/dL (Normal) UA - PROTEIN Negative mg/dL (Normal) UA - PH 7 (Normal) UA - BLOOD Hemolyzed Trace (Normal) UA - SPECIFIC GRAVITY 1.020 (Normal) UA - KETONES Negative mg/dL (Normal) UA - BILIRUBIN Negative (Normal) UA - GLUCOSE Negative (Normal) 22-May-20149:53 HgA1C , Office (52084) HgA1C , Office 6.1 % (Normal) Range: 4.6 - 7.1 22-May-20149:53 Blood Glucose , Office (30260) Blood Glucose , Office 100 (Normal) 3-Uve-624354:07 Urinalysis, Office (13297) UA - LEUKOCYTE ESTERASE Small (Normal) UA - NITRITE Negative (Normal) URINE UROBILINGN JAYDEN TIMED Normal mg/dL (Normal) UA - PROTEIN 100 mg/dL (Normal) UA - PH 6.5 (Normal) UA - BLOOD ++ (Abnormal) UA - SPECIFIC GRAVITY 1.025 (Normal) UA - KETONES Negative mg/dL (Normal) UA - BILIRUBIN Negative (Normal) UA - GLUCOSE Negative (Normal) 00-Moc-102841:06 URINE RUBENS CULTURE-IDENTIFICATN Comments: PATIENT NOT FASTINGPERFORMED BY: [facility] [id number] Information: [id number] (80043) Result 1 MUG (Normal) Comments: Mixed urogenital flora1,000 Colonies/mL Urine Culture,Comprehensive Final report (Normal) 11-Koe-900849:43 Urinalysis, Office (24929) UA - LEUKOCYTE ESTERASE Large (Normal) UA - NITRITE Negative (Normal) URINE UROBILINGN JAYDEN TIMED 2 mg/dL (Normal) UA - PROTEIN Negative mg/dL (Normal) UA - PH 6.0 (Normal) UA - BLOOD Hemolyzed Large (Normal) UA - SPECIFIC GRAVITY 1.015 (Normal) UA - KETONES Negative mg/dL (Normal) UA - BILIRUBIN Negative (Normal) UA - GLUCOSE Negative (Normal) 9-Zkb-757152:12 TSH (97317) Comments: PATIENT WAS FASTINGPERFORMED BY: [facility] [id number] TSH 1.070 {uIU/mL} (Normal) Range: 0.450-4.500 3-See-595712:12 URINALYSIS, W/ MICRO (70228) Comments: PATIENT WAS FASTINGPERFORMED BY: AngioChemDublin [place] [id number] Microscopic Examination See below: (Normal) Comments: Microscopic was indicated and was performed. Microscopic Examination MICRON (Normal) Comments: Microscopic follows if indicated. Nitrite, Urine Negative (Normal) Urobilinogen,Semi-Qn 0.2 mg/dL (Normal) Range: 0.0-1.9 Bilirubin Negative (Normal) Occult Blood Negative (Normal) Ketones Negative (Normal) Glucose Negative (Normal) Protein Negative (Normal) WBC Esterase Negative (Normal) Appearance Clear (Normal) Urine-Color Yellow (Normal) pH 7.0 (Normal) Range: 5.0-7.5 Specific [place] 1.015 (Normal) Range: 1.005-1.030 1-Isa-485188:12 METABOLIC PANEL, COMPREHENSIVE Comments: PATIENT WAS FASTINGPERFORMED BY: [facility]6370 [facility] [id number] (69919) ALT (SGPT) 20 [iU]/L (Normal) Range: 0-32 AST (SGOT) 21 [iU]/L (Normal) Range: 0-40 Alkaline Phosphatase, S 103 [iU]/L (Normal) Range: 39-117 Bilirubin, Total 0.2 mg/dL (Normal) Range: 0.0-1.2 A/G Ratio 1.8 (Normal) Range: 1.1-2.5 Globulin, Total 2.4 g/dL (Normal) Range: 1.5-4.5 Albumin, Serum 4.2 g/dL (Normal) Range: 3.6-4.8 Protein, Total, Serum 6.6 g/dL (Normal) Range: 6.0-8.5 Calcium, Serum 10.9 mg/dL (Abnormal) Range: 8.6-10.2 Comments: Effective June 04, 2014 the reference interval for Calcium, Serum will be changing to: Age Male Female 0 - 10 days 8.6 - 10.4 8.6 - 10.4 11 days - 1 year 9.2 - 11.0 9.2 - 11.0 2 - 11 years 9.1 - 10.5 9.1 - 10.5 12 - 17 years 8.9 - 10.4 8.9 - 10.4 18 - 59 years 8.7 - 10.2 8.7 - 10.2 >59 years 8.6 - 10.2 8.7 - 10.3 Carbon Dioxide, Total 26 mmol/L (Normal) Range: 18-29 Chloride, Serum 102 mmol/L (Normal) Range: 97-108 Potassium, Serum 4.8 mmol/L (Normal) Range: 3.5-5.2 Sodium, Serum 141 mmol/L (Normal) Range: 134-144 BUN/Creatinine Ratio 31 (Abnormal) Range: 11-26 eGFR If Africn Am 104 mL/min/1.73 (Normal) eGFR If NonAfricn Am 91 mL/min/1.73 (Normal) Creatinine, Serum 0.67 mg/dL (Normal) Range: 0.57-1.00 BUN 21 mg/dL (Normal) Range: 8-27 Glucose, Serum 86 mg/dL (Normal) Range: 65-99 7-Ppq-972688:12 LIPID PANEL (22905) Comments: PATIENT WAS FASTINGPERFORMED BY: [employer] [facility]70 [facility] [id number] LDL/HDL Ratio 2.0 {ratio_units} (Normal) Range: 0.0-3.2 Comments: LDL/HDL Ratio Men Women 1/2 Avg.Risk 1.0 1.5 Av g.Risk 3.6 3.2 2X Avg.Risk 6.2 5.0 3X Avg.Risk 8.0 6.1 LDL Cholesterol Calc 106 mg/dL (Abnormal) Range: 0-99 VLDL Cholesterol Tab 33 mg/dL (Normal) Range: 5-40 HDL Cholesterol 53 mg/dL (Normal) Comments: According to ATP-III Guidelines, HDL-C >59 mg/dL is considered anegative risk factor for CHD. Triglycerides 165 mg/dL (Abnormal) Range: 0-149 Cholesterol, Total 192 mg/dL (Normal) Range: 100-199 1-Nnh-282708:12 CBC W/AUTO DIFF WBC Comments: PATIENT WAS FASTINGPERFORMED BY: [employer] [facility]70 [facility] [id number] Information: [id number] (34726) Immature Grans (Abs) 0.0 {x10E3/uL} (Normal) Range: 0.0-0.1 Immature Granulocytes 0 % (Normal) Baso (Absolute) 0.0 {x10E3/uL} (Normal) Range: 0.0-0.2 Eos (Absolute) 0.1 {x10E3/uL} (Normal) Range: 0.0-0.4 Monocytes(Absolute) 0.6 {x10E3/uL} (Normal) Range: 0.1-0.9 Lymphs (Absolute) 1.6 {x10E3/uL} (Normal) Range: 0.7-3.1 Neutrophils (Absolute) 4.9 {x10E3/uL} (Normal) Range: 1.4-7.0 Basos 0 % (Normal) Eos 2 % (Normal) Monocytes 9 % (Normal) Lymphs 22 % (Normal) Neutrophils 67 % (Normal) Platelets 349 {x10E3/uL} (Normal) Range: 150-379 RDW 14.2 % (Normal) Range: 12.3-15.4 MCHC 32.2 g/dL (Normal) Range: 31.5-35.7 MCH 26.4 pg (Abnormal) Range: 26.6-33.0 MCV 82 fL (Normal) Range: 79-97 Hematocrit 38.2 % (Normal) Range: 34.0-46.6 Hemoglobin 12.3 g/dL (Normal) Range: 11.1-15.9 RBC 4.66 {x10E6/uL} (Normal) Range: 3.77-5.28 WBC 7.3 {x10E3/uL} (Normal) Range: 3.4-10.8 :57 HgA1C , Office (61371) HgA1C , Office 5.7 % (Normal) Range: 4.6 - 7.1 :57 Blood Glucose , Office (96377) Blood Glucose , 91 (Normal) Office : B12 434 pg/mL (Normal) Range: 211-911 28 : BUCKLE SEWER 112 ug/dL (Normal) Range: 72-166 28 Comments: Detection Limit = 5Performed at: [facility] [id number] Director: Heladio Schaffer MD, Phone: [phone] : VITD 37.9 mg/mL (Normal) Comments: Vitamin D 25(OH) Status RangeDeficiency <20 ng/mL (50nmol/L)Insuffciency 20 - 30 ng/mL (50 - 75 nmol/L)Sufficiency 30 - 100 ng/mL (75 - 250 28 nmol/L)Toxicity >100 ng/mL (>250 nmol/L) 0-Mcn-303561:22 Microscopic Examination Comments: PATIENT WAS FASTINGPERFORMED BY: [facility]6370 [facility] [id number] Bacteria Few (Normal) Mucus Threads Present (Normal) Crystal Type Calcium Oxalate (Normal) Crystals Present (Abnormal) Epithelial Cells (non renal) 0-10 {/hpf} (Normal) Range: 0 - 10 RBC 3-10 {/hpf} (Abnormal) Range: 0 - 2 WBC 0-5 {/hpf} (Normal) Range: 0 - 5 :39 HgA1C , Office (31437) HgA1C , Office 5.7 % (Normal) Range: 4.6 - 7.1 :39 Blood Glucose , Office (75294) Blood Glucose , Office 106 (Normal) Comments: non fasting :02 CALCIFIDIOL (54074) VIT D 25 Comments: PATIENT WAS FASTINGPERFORMED BY: [facility]6370 [facility] [id number] Vitamin D, 25-Hydroxy 29.8 ng/mL (Abnormal) Range: 30.0-100.0 Comments: Vitamin D deficiency has been defined by the [place] of[place]icine and an Endocrine Society practice guideline as alevel of serum 25-OH vitamin D less than 20 ng/mL (1,2).The Endocrine Society went on to further define vitamin Dinsufficiency as a level between 21 and 29 ng/mL (2).1. IOM ([place] of Medicine). 2010. Dietary reference intakes for calcium and D. [place]: The National Academies Press.2. Shelby MF, Sergio NC, Anatoly MERCER, et al. Evaluation, treatment, and prevention of vitamin D deficiency: an Endocrine Society clinical practice guideline. JCEM. 2010; 96(7):1911-30. 6-Lyv-421323:02 TSH (41074) Comments: PATIENT WAS FASTINGPERFORMED BY: [facility]6370 [facility] [id number] TSH 1.410 {uIU/mL} (Normal) Range: 0.450-4.500 0-Zte-477606:02 URINALYSIS, W/ MICRO (76217) Comments: PATIENT WAS FASTINGPERFORMED BY: [facility] [id number] Microscopic Examination See below: (Normal) Nitrite, Urine Negative (Normal) Urobilinogen,Semi-Qn 0.2 mg/dL (Normal) Range: 0.0-1.9 Bilirubin Negative (Normal) Occult Blood 3+ (Abnormal) Ketones Negative (Normal) Glucose Negative (Normal) Protein 1+ (Abnormal) WBC Esterase 1+ (Abnormal) Appearance Clear (Normal) Urine-Color Yellow (Normal) pH 6.5 (Normal) Range: 5.0-7.5 Specific [place] 1.023 (Normal) Range: 1.005-1.030 8-Jnb-584737:02 METABOLIC PANEL, COMPREHENSIVE Comments: PATIENT WAS FASTINGPERFORMED BY: [facility] [id number] (90553) ALT (SGPT) 16 [iU]/L (Normal) Range: 0-32 AST (SGOT) 21 [iU]/L (Normal) Range: 0-40 Alkaline Phosphatase, S 95 [iU]/L (Normal) Range: 39-117 Bilirubin, Total 0.3 mg/dL (Normal) Range: 0.0-1.2 A/G Ratio 2.0 (Normal) Range: 1.1-2.5 Globulin, Total 2.1 g/dL (Normal) Range: 1.5-4.5 Albumin, Serum 4.1 g/dL (Normal) Range: 3.6-4.8 Calcium, Serum 10.6 mg/dL (Abnormal) Range: 8.6-10.2 Protein, Total, Serum 6.2 g/dL (Normal) Range: 6.0-8.5 Carbon Dioxide, Total 25 mmol/L (Normal) Range: 18-29 Chloride, Serum 102 mmol/L (Normal) Range: 97-108 Potassium, Serum 4.3 mmol/L (Normal) Range: 3.5-5.2 Sodium, Serum 140 mmol/L (Normal) Range: 134-144 BUN/Creatinine Ratio 21 (Normal) Range: 11-26 eGFR If Africn Am 83 mL/min/1.73 (Normal) eGFR If NonAfricn Am 72 mL/min/1.73 (Normal) Creatinine, Serum 0.84 mg/dL (Normal) Range: 0.57-1.00 BUN 18 mg/dL (Normal) Range: 8-27 Glucose, Serum 88 mg/dL (Normal) Range: 65-99 0-Whh-462331:02 CBC WITH MANUAL DIFF Comments: PATIENT WAS FASTINGPERFORMED BY: [facility]6370 [facility] [id number] Information: [id number] (94987) Immature Grans (Abs) 0.0 {x10E3/uL} (Normal) Range: 0.0-0.1 Immature Granulocytes 0 % (Normal) Range: 0-2 Baso (Absolute) 0.0 {x10E3/uL} (Normal) Range: 0.0-0.2 Eos (Absolute) 0.2 {x10E3/uL} (Normal) Range: 0.0-0.4 Monocytes(Absolute) 0.7 {x10E3/uL} (Normal) Range: 0.1-0.9 Lymphs (Absolute) 1.0 {x10E3/uL} (Normal) Range: 0.7-3.1 Neutrophils (Absolute) 3.5 {x10E3/uL} (Normal) Range: 1.4-7.0 Basos 1 % (Normal) Range: 0-3 Eos 3 % (Normal) Range: 0-5 Monocytes 12 % (Normal) Range: 4-12 Lymphs 19 % (Normal) Range: 14-46 Neutrophils 65 % (Normal) Range: 40-74 Platelets 321 {x10E3/uL} (Normal) Range: 150-379 RDW 14.0 % (Normal) Range: 12.3-15.4 MCHC 32.4 g/dL (Normal) Range: 31.5-35.7 MCH 27.4 pg (Normal) Range: 26.6-33.0 MCV 85 fL (Normal) Range: 79-97 Hematocrit 37.0 % (Normal) Range: 34.0-46.6 Hemoglobin 12.0 g/dL (Normal) Range: 11.1-15.9 RBC 4.38 {x10E6/uL} (Normal) Range: 3.77-5.28 WBC 5.4 {x10E3/uL} (Normal) Range: 3.4-10.8 :11 Blood Glucose , Office (83720) Blood Glucose , Office 161 (Normal) Comments: nonfasting :11 HgA1C , Office (52648) HgA1C , Office 5.5 % (Normal) Range: 4.6 - 7.1 :46 Metabolic Panel, Comments: all copies to Dr. cruz Montero; PATIENT NOT FASTINGPERFORMED BY: [facility]CoRiverview Medical CenterObnhtr2092 [facility] [id number] Information: [id number],NURSE DRAW Comprehensive (45557) ALT (SGPT) 22 [iU]/L (Normal) Range: 0-32 Alkaline Phosphatase, S 87 [iU]/L (Normal) Range: 39-117 Comments: Please note reference interval change AST (SGOT) 23 [iU]/L (Normal) Range: 0-40 Bilirubin, Total 0.2 mg/dL (Normal) Range: 0.0-1.2 A/G Ratio 1.8 (Normal) Range: 1.1-2.5 Globulin, Total 2.2 g/dL (Normal) Range: 1.5-4.5 Albumin, Serum 3.9 g/dL (Normal) Range: 3.6-4.8 Protein, Total, Serum 6.1 g/dL (Normal) Range: 6.0-8.5 Calcium, Serum 10.1 mg/dL (Normal) Range: 8.6-10.2 Carbon Dioxide, Total 22 mmol/L (Normal) Range: 19-28 Chloride, Serum 107 mmol/L (Normal) Range: 97-108 Potassium, Serum 3.8 mmol/L (Normal) Range: 3.5-5.2 Sodium, Serum 145 mmol/L (Abnormal) Range: 134-144 BUN/Creatinine Ratio 21 (Normal) Range: 11-26 eGFR If Africn Am 91 mL/min/1.73 (Normal) Creatinine, Serum 0.78 mg/dL (Normal) Range: 0.57-1.00 eGFR If NonAfricn Am 79 mL/min/1.73 (Normal) BUN 16 mg/dL (Normal) Range: 8-27 Glucose, Serum 114 mg/dL (Abnormal) Range: 65-99 [id number]-[id number] TSH (04015) Comments: PATIENT NOT FASTINGPERFORMED BY: [id number] [id number] TSH 0.648 {uIU/mL} (Normal) Range: 0.450-4.500 [id number]-[id number]:46 CBC (Auto) ([id number]) Comments: PATIENT NOT FASTINGPERFORMED BY: [facility] [id number] [facility] [id number] Platelets 281 {x10E3/uL} (Normal) Range: 155-379 RDW 13.5 % (Normal) Range: 12.3-15.4 MCH 28.0 pg (Normal) Range: 26.6-33.0 MCHC 32.9 g/dL (Normal) Range: 31.5-35.7 Hematocrit 37.7 % (Normal) Range: 34.0-46.6 MCV 85 fL (Normal) Range: 79-97 Hemoglobin 12.4 g/dL (Normal) Range: 11.1-15.9 RBC 4.43 {x10E6/uL} (Normal) Range: 3.77-5.28 WBC 5.1 {x10E3/uL} (Normal) Range: 3.4-10.8 :00 CBCD ANC 4.2 {X10_3/uL} (Normal) Range: 2.0-7.7 IG% 0.300 % (Normal) Range: 0.0-0.9 Comments: IG% - Immature Granulocytes (promyelocytes, myelocytes andmetamyelocytes) > 1% indicates that a LEFT SHIFT is Present. B% 0.6 % (Normal) Range: 0-1 E% 2.3 % (Normal) Range: 0-5 M% 12.9 % (Abnormal) Range: 0-10 L% 22.4 % (Normal) Range: 19-41 N% 61.5 % (Normal) Range: 47-70 MPV 9.4 fL (Normal) Range: 6.2-12.0 PLT 326 K/mm3 (Normal) Range: 150-450 RDWSD 40.9 fL (Normal) Range: 35.1-43.9 RDWCV 13.3 % (Normal) Range: 11.6-14.6 MCHC 32.7 {g/gl} (Normal) Range: 32-36 MCH 28.3 pg (Normal) Range: 27.0-32.0 MCV 86.5 fL (Normal) Range: 81-99 HCT 41.6 % (Normal) Range: 37-47 HGB 13.6 g/dL (Normal) Range: 12.0-15.0 RBC 4.81 {M/mm2} (Normal) Range: 4.2-5.4 WBC 6.8 K/mm3 (Normal) Range: 4.4-11.0 :49 Blood Glucose , Office (59899) Blood Glucose , Office 87 (Normal) [id number]-[id number] HgA1C , Office (58089) HgA1C , Office 5.6 % (Normal) Range: 4.6 - 7.1 [id number]-[id number]:11 Urinalysis, Office ([id number]) UA - BILIRUBIN Negative (Normal) UA - BLOOD Non Hemolyzed Trace (Normal) UA - GLUCOSE Negative (Normal) UA - KETONES Negative mg/dL (Normal) UA - LEUKOCYTE ESTERASE Trace (Normal) UA - NITRITE Negative (Normal) UA - PH 7.0 (Normal) UA - PROTEIN Negative mg/dL (Normal) UA - SPECIFIC GRAVITY 1.020 (Normal) URINE UROBILINGN JAYDEN TIMED Normal mg/dL (Normal) 21-Dec-20129:57 Blood Glucose , Office (50457) Blood Glucose , Office 73 (Normal) 18-Tap-673997:27 CALCIUM, IONIZED (40780) Comments: PATIENT NOT FASTINGPERFORMED BY: TRUDY [employer] [facility] [id number] Information: [id number] Calcium, Ionized, Serum 6.1 mg/dL (Abnormal) Range: 4.5-5.6 26-Uzd-687363:08 URINE RUBENS CULTURE-IDENTIFICATN Comments: PATIENT NOT FASTINGPERFORMED BY: TRUDY [employer] [facility] [id number] Information: [id number] ([id number]) Result 1 CNSNSS (Normal) Comments: Coagulase negative Staphylococcus species, not Staphylococcussaprophyticus.10,000-25,000 colony forming units per mLBased on resistance to penicillin and susceptibility to oxacillinthis isolate would be susceptible to:* Penicillinase-stable penicillins; such as: Cloxacillin Dicloxacillin Nafcillin* Beta-lactam/beta-lactamase inhibitor combinations; such as: Amoxicillin-clavulanic acid A mpicillin-sulbactam* Antistaphylococcal cephems; such as: Cefaclor Cefuroxime* Antistaphylococcal carbapenems; such as: Imipenem Meropenem S = Susceptible; I = Intermediate; R = Resi stant P = Positive; N = Negative MICS are expressed in micrograms per mL Antibiotic RSLT#1 RSLT#2 RSLT#3 RSLT#4Ciprofloxacin RGentamicin SLevofloxacin RNitrofurantoin SOxacillin SPenicillin RRifampin STetracy rowland STrimethoprim/Sulfa RVancomycin S Urine Final report Culture,Comprehe (Normal) nsive :45 Urinalysis, Office (50676) UA - BILIRUBIN Negative (Normal) UA - BLOOD Non Hemolyzed Moderate (Normal) UA - GLUCOSE Negative (Normal) UA - KETONES Negative mg/dL (Normal) UA - LEUKOCYTE ESTERASE Negative (Normal) UA - NITRITE Negative (Normal) UA - PH 7.0 (Normal) UA - PROTEIN Negative mg/dL (Normal) UA - SPECIFIC GRAVITY 1.025 (Normal) URINE UROBILINGN JAYDEN TIMED Normal mg/dL (Normal) :48 URINE RUBENS CULTURE-JAYDEN COL Comments: PATIENT NOT FASTINGPERFORMED BY: TRUDY [facility]6370 [facility] [id number] Information: SRC:UR ADD [id number] COUNT (91033) Result 1 MUG (Normal) Comments: Mixed urogenital flora50,000-100,000 colony forming units per mL Urine Final report (Normal) Culture,Comprehensive :44 Urinalysis, Office (25843) UA - BILIRUBIN Negative (Normal) UA - BLOOD Hemolyzed Large (Normal) UA - GLUCOSE Negative (Normal) UA - KETONES Negative mg/dL (Normal) UA - LEUKOCYTE ESTERASE Trace (Normal) UA - NITRITE Negative (Normal) UA - PH 6.0 (Normal) UA - PROTEIN Negative mg/dL (Normal) UA - SPECIFIC GRAVITY 1.020 (Normal) URINE UROBILINGN JAYDEN TIMED Normal mg/dL (Normal) 11-Zix-08888:10 PARATHORMONE (72663) Comments: PATIENT NOT FASTINGPERFORMED BY: [employer] Rbjzch3257 [facility] [id number] PTH, Intact 36 pg/mL (Normal) Range: 15-65 :10 CALCIUM, IONIZED (12385) Comments: PATIENT NOT FASTINGPERFORMED BY: [facility] Jdmoet2717 [facility] [id number] Information: [id number] Calcium, Ionized, Serum 6.3 mg/dL (Abnormal) Range: 4.5-5.6 6-Nii-285296:17 TSH (95995) Comments: PATIENT NOT FASTINGPERFORMED BY: [facility] Vjuebw5348 [facility] [id number] TSH 1.200 {uIU/mL} (Normal) Range: 0.450-4.500 7-Lwg-626321:17 Protein Electrophoresis, Comments: PATIENT NOT FASTINGPERFORMED BY: [facility]CoHoly Cross HospitalZwmwrl3578 [facility] [id number] Information: [id number] Serum (SPEP) (64491) Please note: SPRCS (Normal) Comments: Protein electrophoresis scan will follow via computer, mail, orcourier delivery. A/G Ratio 1.8 (Normal) Range: 0.7-2.0 Globulin, Total 2.4 g/dL (Normal) Range: 2.0-4.5 M-Nelson Not Observed g/dL (Normal) Gamma Globulin 0.7 g/dL (Normal) Range: 0.5-1.6 Beta Globulin 0.9 g/dL (Normal) Range: 0.6-1.3 Ohude-7-Fcusfbxt 0.6 g/dL (Normal) Range: 0.4-1.2 Clrok-7-Tiycnjhy 0.2 g/dL (Normal) Range: 0.1-0.4 Albumin 4.2 g/dL (Normal) Range: 3.2-5.6 Protein, Total, Serum 6.6 g/dL (Normal) Range: 6.0-8.5 0-Xer-169929:17 CALCIFEDIOL (69248) Comments: PATIENT NOT FASTINGPERFORMED BY: [facility]6370 [facility] [id number] Vitamin D, 25-Hydroxy 35.7 ng/mL (Normal) Range: 30.0-100.0 Comments: Vitamin D deficiency has been defined by the [place] of[place]icine and an Endocrine Society practice guideline as alevel of serum 25-OH vitamin D less than 20 ng/mL (1,2).The Endocrine Society went on to further define vitamin Dinsufficiency as a level between 21 and 29 ng/mL (2).1. IOM ([place] of Medicine). 2010. Dietary reference intakes for calcium and D. [place]: The National Academies Press.2. Shelby MF, Sergio NC, Anatoly MERCER, et al. Evaluation, treatment, and prevention of vitamin D deficiency: an Endocrine Society clinical practice guideline. JCEM. 2010; 96(7):1911-30. 4-Jrc-744047:17 PHOSPHORUS (14052) Comments: PATIENT NOT FASTINGPERFORMED BY: [facility]6370 [facility] [id number] Phosphorus, Serum 3.6 mg/dL (Normal) Range: 2.5-4.5 0-Cgn-979340:17 PARATHORMONE (48307) Comments: PATIENT NOT FASTINGPERFORMED BY: [facility]6370 [facility] [id number] PTH, Intact 51 pg/mL (Normal) Range: 15-65 2-Tts-346104:10 Parathyroid Hormone-related Comments: PATIENT NOT FASTINGPERFORMED BY: [employer] [address] [place] [address] [id number] Peptide (PTH-rP) (05328) PTHrP (PTH-Related Peptide) <0.74 pmol/L (Normal) Comments: Reference Range:All Ages: <2.0The PTHrP assay should not be used to exclude cancer orscreen tumor patients for humoral hypercalcemia ofmalignancy (HHM). The results should always be assessed inconjun ction with the patient's medical history, clinicalexamination, and other findings. If test results areclinically discordant, please contact the laboratory. 6-Cft-391744:17 CALCIUM, IONIZED (26829) Comments: PATIENT NOT FASTINGPERFORMED BY: [facility].netSelect [facility] [id number] Calcium, Ionized, Serum 6.2 mg/dL (Abnormal) Range: 4.5-5.6 4-Vrf-429075:10 URINE RUBENS CULTURE-IDENTIFICATN Comments: PATIENT NOT FASTINGPERFORMED BY: [facility].netSelect [facility] [id number] Information: [id number] (40286) Result 1 MUG (Normal) Comments: Mixed urogenital flora50,000-100,000 colony forming units per mL Urine Final report (Normal) Culture,Comprehensive :36 Urinalysis, Office (64209) UA - BILIRUBIN Negative (Normal) UA - BLOOD Hemolyzed Trace (Normal) UA - GLUCOSE Negative (Normal) UA - KETONES Negative mg/dL (Normal) UA - LEUKOCYTE Trace (Normal) ESTERASE UA - NITRITE Negative (Normal) UA - PH 6.0 (Normal) UA - PROTEIN Negative mg/dL (Normal) UA - SPECIFIC GRAVITY 1.025 (Normal) URINE UROBILINGN JAYDEN 2 mg/dL (Normal) TIMED Calcium, Serum 10.9 mg/dL Comments: PERFORMED BY: [facility].netSelect [facility] [id number] :14 (Abnormal) Range: 8.6-10.2 :14 CBC With Differential/Platelet Comments: PERFORMED BY: [facility]Chain.netSelect [facility] [id number] Immature Grans (Abs) 0.0 {x10E3/uL} (Normal) Range: 0.0-0.1 Immature Granulocytes 0 % (Normal) Range: 0-2 Baso (Absolute) 0.0 {x10E3/uL} (Normal) Range: 0.0-0.2 Eos (Absolute) 0.1 {x10E3/uL} (Normal) Range: 0.0-0.4 Monocytes(Absolute) 0.6 {x10E3/uL} (Normal) Range: 0.1-1.0 Lymphs (Absolute) 1.5 {x10E3/uL} (Normal) Range: 0.7-4.5 Neutrophils (Absolute) 3.8 {x10E3/uL} (Normal) Range: 1.8-7.8 Basos 1 % (Normal) Range: 0-3 Eos 2 % (Normal) Range: 0-7 Monocytes 10 % (Normal) Range: 4-13 Lymphs 24 % (Normal) Range: 14-46 Neutrophils 63 % (Normal) Range: 40-74 Platelets 317 {x10E3/uL} (Normal) Range: 140-415 RDW 13.7 % (Normal) Range: 12.3-15.4 MCHC 32.5 g/dL (Normal) Range: 31.5-35.7 MCH 27.6 pg (Normal) Range: 26.6-33.0 MCV 85 fL (Normal) Range: 79-97 Hematocrit 40.3 % (Normal) Range: 34.0-46.6 Hemoglobin 13.1 g/dL (Normal) Range: 11.1-15.9 RBC 4.75 {x10E6/uL} (Normal) Range: 3.77-5.28 WBC 6.1 {x10E3/uL} (Normal) Range: 4.0-10.5 6-Hud-588794:14 Celiac Disease Comprehensive Comments: PERFORMED BY: LabCoRiverview Medical CenterFutalp3253 [facility] [id number] Immunoglobulin A, Qn, 231 mg/dL (Normal) Range: 91-414 Serum Endomysial Antibody IgA Negative (Normal) t-Transglutaminase (tTG) <2 U/mL (Normal) Range: 0-5 IgG Comments: Negative 0 - 5 Weak Positive 6 - 9 Positive >9 t-Transglutaminase (tTG) <2 U/mL (Normal) Range: 0-3 IgA Comments: Negative 0 - 3 Weak Positive 4 - 10 Positive >10 . Tissue Transglutaminase (tTG) has been identified as the endomysial antigen. Studies have demonstr- ated that endomysial IgA antibo dies have over 99% specificity for gluten sensitive enteropathy. Deamidated Gliadin Abs, 2 {units} (Normal) Range: 0-19 IgG Comments: Negative 0 - 19 Weak Positive 20 - 30 Moderate to Strong Positive >30 Deamidated Gliadin Abs, 3 {units} (Normal) Range: 0-19 IgA Comments: Negative 0 - 19 Weak Positive 20 - 30 Moderate to Strong Positive >30 Hemoglobin A1c 5.6 % (Normal) Comments: PERFORMED BY: [facility]iftSaint [facility] [id number] 0:14 Range: 4.8-5.6 Comments: . Increased risk for diabetes: 5.7 - 6.4 Diabetes: >6.4 Glycemic control for adults with diabetes: <7.0 PTH, Intact 48 pg/mL (Normal) Comments: PERFORMED BY: [employer] [id number] 0:14 Range: 15-65 :36 HEPATOBILLIARY IMG W/PHARM INT Radiology Report See Note (Normal) Comments: CLINICAL:67-year-old female with reported history of right upper quadrantabdominalpain. RADIONUCLIDE HEPATOBILIARY SCINTIGRAPHY COMPARISON:Abdominal ultrasound report 09/09/12 FINDINGS:Following the int ravenous administration of 5.5 mCi of Tc Mebrofenin,hepatobiliary images reveal: 1. Relatively prompt and homogeneous radiopharmaceutical concentrationisnoted by a normal sized liver. No parenchymal d efects are identified.2. Gallbladder activity is identified at 30 minutes postradiopharmaceutical administration.3. Small intestinal tract is observed at 45-60 minutes followingradiotracer injection.4 . Washout of the radiopharmaceutical by the hepatic parenchyma appearsqualitatively normal. Cholecystokinin (0.02 ug/kg) was administered intravenously over a30- minute period. The post CCK gallbladder ejection fraction minutes following Cholecystokinin administration was noted to be 13.3%(normal greater than 35%). IMPRESSION:1. ABNORMAL 99m Tc Mebrofenin hepatobiliary imaging examina tion withCholecystokinin. A. A gallbladder ejection fraction calculated to be less than 35%following the administration of Cholecystokinin is consistent with thepresence of functional hepatobiliary dis ease (gallbladder and/orsphincterof Oddi dyskinesia) and/or organic hepatobiliary disease (chronicacalculous cholecystitis and/or cystic duct syndrome) in patients withintermediate to high pretest proba bilities of hepatobiliary illness. (Donald et al, Journal of Nuclear Medicine 32:1695, 1991). Signed:Sd Elmore M.D.September 20, 2012 at 10:16:57 PM [id number] Signed RB/RB If you are the referring physician and would like to consult with theradiologist who provided this interpretation, please contact Margoth Luna at [phone]. If this radiologist is unavailable, you will bedirected to another radiologist to assist. If you are a patient with a question regarding this report, pleasecontactyour referring physician directly. Professional Interpretation Provided By: [employer], Phone , These documents contain legally protected and confidential healthinformation intended only for the use of the individual or entity namedabove. If you are not the intended recipient, you are hereby notifiedthatany disclosure, copying, distribution, or other use of these documents isstrictly prohibited. If you have received this information in error,pleasenoti fy the sender immediately and arrange for the return or destructionofthese documents. Dictated on 09/20/12717 by Sd Elmore DOTranscribed on 09/20/122217 by ITS IMPORTSign by Sd Elmore DO on 09/20/122217 Sign by: Sd Elmore DO 13-Hhv-44248:36 GALLBLADDER Radiology Report See Note (Normal) Comments: PROCEDURE: ABDOMINAL ULTRASOUND - RIGHT UPPER QUADRANT REASON FOR VISIT: Female, 67 years old. Abdominal pain. TECHNIQUE: Ultrasound evaluation of the right upper quadrant wasperforme d with real- time and static loja-scale imaging. TECHNICAL QUALITY: Adequate. COMPARISON: Comparison is made with prior ultrasound dated October. FINDINGS: Liver: The liver measures 16.1 cm. There is inc reased echogenicityconsistent with fatty infiltration. The bile ducts are within normallimits. There is hepatic color flow. The direction of portal flow ishepatopetal. There is no demonstrated mass lesion. Gallbladder: Normal distended gallbladder. The gallbladder wallmeasures1.5 mm. There is a negative sonographic Neff's sign. There is nopericholecystic fluid. There are no gallstones. Com mon Bile Duct (C.B.D.): The common bile duct measures 3.2 mm. Pancreas: Normal size of the head, body of the pancreas. The tail wasobscured due to overlying bowel gas. There is normal echogenicity of thepancreas. There is no demonstrated pancreatic mass or cyst. Right Kidney: Normal size of the right kidney. The right kidneymeasures9.5 cm. Normal renal cortex. The right cortex measures 1.1 cm. Thereisno demonstrated renal mass or cyst. There is no right hydronephrosis. IMPRESSION:Fatty infiltration of the liver. Signed:Suleman Chan M.D.September 09, 2012 at 10:19:06 AM [id number] Signed GP/GP If you are the referring physician and would like to consult with theradiologist who provided this interpretation, please contact Margoth Medina at [phone]. I f this radiologist is unavailable, youwill be directed to another radiologist to assist. If you are a patient with a question regarding this report, pleasecontactyour referring physician directly. Profe ssional Interpretation Provided By: [employer], Phone , These documents contain legally protected and confidential healthinformation intended only for the use of the indiv idual or entity namedabove. If you are not the intended recipient, you are hereby notifiedthatany disclosure, copying, distribution, or other use of these documents isstrictly prohibited. If you have re ceived this information in error,pleasenotify the sender immediately and arrange for the return or destructionofthese documents. Dictated on 09/09/12 0849 by Rocio FLORES,AlfredoriMartranscribed on 09/09 1115 by ITS IMPORTSign by Rocio FLORES,Suleman on 09/09/12 1116 Sign by: Suleman Chan MD 32-Tpt-123143:55 Amylase (38725) Comments: PATIENT NOT FASTINGPERFORMED BY: LabCoRiverview Medical CenterZyqvps1093 [facility] [id number] Amylase, Serum 83 U/L (Normal) Range: 31-124 28-Hls-265379:55 Lipase (60726) Comments: PATIENT NOT FASTINGPERFORMED BY: [facility] Icamuc1045 [facility] [id number] Lipase, Serum 49 U/L (Normal) Range: 0-59 80-Ozt-817356:55 Metabolic Panel, Comprehensive Comments: PATIENT NOT FASTINGPERFORMED BY: [facility] Uuhuoj8122 [facility] [id number] (73689) ALT (SGPT) 27 [iU]/L (Normal) Range: 0-32 AST (SGOT) 25 [iU]/L (Normal) Range: 0-40 Alkaline Phosphatase, S 72 [iU]/L (Normal) Range: 25-165 Bilirubin, Total 0.2 mg/dL (Normal) Range: 0.0-1.2 A/G Ratio 2.0 (Normal) Range: 1.1-2.5 Globulin, Total 2.1 g/dL (Normal) Range: 1.5-4.5 Albumin, Serum 4.3 g/dL (Normal) Range: 3.6-4.8 Protein, Total, Serum 6.4 g/dL (Normal) Range: 6.0-8.5 Calcium, Serum 10.6 mg/dL (Abnormal) Range: 8.6-10.2 Carbon Dioxide, Total 25 mmol/L (Normal) Range: 20-32 Chloride, Serum 101 mmol/L (Normal) Range: 97-108 Potassium, Serum 4.4 mmol/L (Normal) Range: 3.5-5.2 Sodium, Serum 139 mmol/L (Normal) Range: 134-144 BUN/Creatinine Ratio 24 (Normal) Range: 11-26 eGFR If Africn Am 98 mL/min/1.73 (Normal) eGFR If NonAfricn Am 85 mL/min/1.73 (Normal) Creatinine, Serum 0.74 mg/dL (Normal) Range: 0.57-1.00 BUN 18 mg/dL (Normal) Range: 8-27 Glucose, Serum 72 mg/dL (Normal) Range: 65-99 78-Wxd-603364:55 CBC with manual diff (83539) Comments: PATIENT NOT FASTINGPERFORMED BY: [facility] Tppkqv7955 [facility] [id number] Immature Grans (Abs) 0.0 {x10E3/uL} (Normal) Range: 0.0-0.1 Immature Granulocytes 0 % (Normal) Range: 0-2 Baso (Absolute) 0.0 {x10E3/uL} (Normal) Range: 0.0-0.2 Eos (Absolute) 0.2 {x10E3/uL} (Normal) Range: 0.0-0.4 Monocytes(Absolute) 0.7 {x10E3/uL} (Normal) Range: 0.1-1.0 Lymphs (Absolute) 1.8 {x10E3/uL} (Normal) Range: 0.7-4.5 Neutrophils (Absolute) 3.1 {x10E3/uL} (Normal) Range: 1.8-7.8 Basos 1 % (Normal) Range: 0-3 Eos 3 % (Normal) Range: 0-7 Monocytes 11 % (Normal) Range: 4-13 Lymphs 31 % (Normal) Range: 14-46 Neutrophils 54 % (Normal) Range: 40-74 Platelets 265 {x10E3/uL} (Normal) Range: 140-415 RDW 13.6 % (Normal) Range: 12.3-15.4 MCHC 31.6 g/dL (Normal) Range: 31.5-35.7 MCH 27.3 pg (Normal) Range: 26.6-33.0 MCV 86 fL (Normal) Range: 79-97 Hematocrit 38.3 % (Normal) Range: 34.0-46.6 Hemoglobin 12.1 g/dL (Normal) Range: 11.1-15.9 RBC 4.44 {x10E6/uL} (Normal) Range: 3.77-5.28 WBC 5.8 {x10E3/uL} (Normal) Range: 4.0-10.5 58-Prp-816870:24 URINE RUBENS CULTURE-IDENTIFICATN Comments: PATIENT NOT FASTINGPERFORMED BY: [facility] Aawauo7328 [facility] [id number] Information: SRC: URINE ([id number]) Result 1 MUG (Normal) Comments: Mixed urogenital flora1,000 Colonies/mL Urine Culture,Comprehensive Final report (Normal) 9-Vex-766614:49 URINE RUBENS CULTURE-JAYDEN COL Comments: PATIENT NOT FASTINGPERFORMED BY: [facility] Heqjts1788 [facility] [id number] Information: SRC:UR [id number] COUNT ([id number]) Result 2 ENTECC (Normal) Comments: Enterobacter cloacae complex5,000 Colonies/mL S = Susceptible; I = Intermediate; R = Resistant P = Positive; N = Negative MICS are expressed in micrograms per mL Antibiotic RSLT#1 RSLT#2 RSLT#3 RSLT#4Amoxicillin/Clavulanic Acid S RAmpicillin RCefazolin S RCefepime S SCeftriaxone S SCefuroxime S RCephalothin S RCiprofloxacin S SESBL NErtapenem S SGentamicin S SImipenem S SLevofloxacin S SNitrofurant oin S IPiperacillin R STetracycline S STobramycin S STrimethoprim/Sulfa S S Result 1 Klebsiella pneumoniae Comments: 5,000 Colonies/mL (Normal) Urine Final report (Normal) Culture,Comprehensi ve 22-Aug-20129:14 Urinalysis, Office (79434) UA - BILIRUBIN Negative (Normal) UA - BLOOD Negative (Normal) UA - GLUCOSE Negative (Normal) UA - KETONES Negative mg/dL (Normal) UA - LEUKOCYTE ESTERASE Small (Normal) UA - NITRITE Negative (Normal) UA - PH 6.0 (Normal) UA - PROTEIN Negative mg/dL (Normal) UA - SPECIFIC GRAVITY 1.015 (Normal) URINE UROBILINGN JAYDEN TIMED Normal mg/dL (Normal) 49-Fbx-842731:56 Urinalysis, Office (66128) UA - BILIRUBIN Negative (Normal) UA - BLOOD Negative (Normal) UA - GLUCOSE Negative (Normal) UA - KETONES Negative mg/dL (Normal) UA - LEUKOCYTE ESTERASE Trace (Normal) UA - NITRITE Negative (Normal) UA - PH 7.0 (Normal) UA - PROTEIN Negative mg/dL (Normal) UA - SPECIFIC GRAVITY 1.025 (Normal) URINE UROBILINGN JAYDEN TIMED Normal mg/dL (Normal) :13 CALCIFEDIOL (12209) Comments: PATIENT WAS FASTINGPERFORMED BY: [employer]70 [facility] [id number] Vitamin D, 25-Hydroxy 32.6 ng/mL (Normal) Range: 30.0-100.0 Comments: Vitamin D deficiency has been defined by the [place] of[place]icine and an Endocrine Society practice guideline as alevel of serum 25-OH vitamin D less than 20 ng/mL (1,2).The Endocrine Society went on to further define vitamin Dinsufficiency as a level between 21 and 29 ng/mL (2).1. IOM ([place] of Medicine). 2010. Dietary reference intakes for calcium and D. [place]: The National Academies Press.2. Shelby MF, Sergio NC, Anatoly MERCER, et al. Evaluation, treatment, and prevention of vitamin D deficiency: an Endocrine Society clinical practice guideline. JCEM. 2010; 96(7):1911-30. :13 TSH (45722) Comments: PATIENT WAS FASTINGPERFORMED BY: [employer]6370 [facility] [id number] TSH 1.590 {uIU/mL} (Normal) Range: 0.450-4.500 19-Jul-20128:13 MICROALBUMIN: CREATININE RATIO Comments: PATIENT WAS FASTINGPERFORMED BY: [employer] Xhxyhk0190 [facility] [id number] ([id number]) AND (26030) Creatinine, Urine 69.0 mg/dL (Normal) Range: 15.0-278.0 Microalb/Creat Ratio 9.3 {mg/g_creat} (Normal) Range: 0.0-30.0 Microalbumin, Urine 6.4 ug/mL (Normal) Range: 0.0-17.0 :13 METABOLIC PANEL, COMPREHENSIVE Comments: PATIENT WAS FASTINGPERFORMED BY: TRUDY [employer]70 [facility] [id number] (04952) ALT (SGPT) 25 [iU]/L (Normal) Range: 0-32 AST (SGOT) 23 [iU]/L (Normal) Range: 0-40 Alkaline Phosphatase, S 70 [iU]/L (Normal) Range: 25-165 Bilirubin, Total 0.3 mg/dL (Normal) Range: 0.0-1.2 A/G Ratio 2.0 (Normal) Range: 1.1-2.5 Globulin, Total 2.1 g/dL (Normal) Range: 1.5-4.5 Albumin, Serum 4.3 g/dL (Normal) Range: 3.6-4.8 Protein, Total, Serum 6.4 g/dL (Normal) Range: 6.0-8.5 Calcium, Serum 10.3 mg/dL (Abnormal) Range: 8.6-10.2 Carbon Dioxide, Total 26 mmol/L (Normal) Range: 20-32 Chloride, Serum 104 mmol/L (Normal) Range: 97-108 Potassium, Serum 4.3 mmol/L (Normal) Range: 3.5-5.2 BUN/Creatinine Ratio 23 (Normal) Range: 11-26 Sodium, Serum 141 mmol/L (Normal) Range: 134-144 eGFR If Africn Am 93 mL/min/1.73 (Normal) eGFR If NonAfricn Am 81 mL/min/1.73 (Normal) Creatinine, Serum 0.77 mg/dL (Normal) Range: 0.57-1.00 BUN 18 mg/dL (Normal) Range: 8-27 Glucose, Serum 80 mg/dL (Normal) Range: 65-99 :13 LIPID PANEL (17126) Comments: PATIENT WAS FASTINGPERFORMED BY: [employer]6370 [facility] [id number] LDL/HDL Ratio 1.0 {ratio_units} (Normal) Range: 0.0-3.2 LDL Cholesterol Calc 59 mg/dL (Normal) Range: 0-99 HDL Cholesterol 60 mg/dL (Normal) Comments: According to ATP-III Guidelines, HDL-C >59 mg/dL is considered anegative risk factor for CHD. VLDL Cholesterol Tab 22 mg/dL (Normal) Range: 5-40 Triglycerides 109 mg/dL (Normal) Range: 0-149 Cholesterol, Total 141 mg/dL (Normal) Range: 100-199 19-Jul-20128:13 CBC WITH MANUAL DIFF Comments: PATIENT WAS FASTINGPERFORMED BY: [facility] Hospital6370 [facility] [id number] Information: [id number] ([id number]) Immature Grans (Abs) 0.0 {x10E3/uL} (Normal) Range: 0.0-0.1 Immature Granulocytes 0 % (Normal) Range: 0-2 Baso (Absolute) 0.0 {x10E3/uL} (Normal) Range: 0.0-0.2 Eos (Absolute) 0.1 {x10E3/uL} (Normal) Range: 0.0-0.4 Lymphs (Absolute) 1.2 {x10E3/uL} (Normal) Range: 0.7-4.5 Monocytes(Absolute) 0.6 {x10E3/uL} (Normal) Range: 0.1-1.0 Neutrophils (Absolute) 3.1 {x10E3/uL} (Normal) Range: 1.8-7.8 Basos 1 % (Normal) Range: 0-3 Eos 3 % (Normal) Range: 0-7 Monocytes 13 % (Normal) Range: 4-13 Lymphs 23 % (Normal) Range: 14-46 Neutrophils 60 % (Normal) Range: 40-74 Platelets 278 {x10E3/uL} (Normal) Range: 140-415 RDW 14.1 % (Normal) Range: 12.3-15.4 MCH 27.4 pg (Normal) Range: 26.6-33.0 MCHC 31.8 g/dL (Normal) Range: 31.5-35.7 MCV 86 fL (Normal) Range: 79-97 Hematocrit 39.3 % (Normal) Range: 34.0-46.6 Hemoglobin 12.5 g/dL (Normal) Range: 11.1-15.9 RBC 4.56 {x10E6/uL} (Normal) Range: 3.77-5.28 WBC 5.1 {x10E3/uL} (Normal) Range: 4.0-10.5 :05 Urinalysis, Office (54634) UA - BILIRUBIN Negative (Normal) UA - BLOOD Negative (Normal) UA - GLUCOSE Negative (Normal) UA - KETONES Small mg/dL (Normal) UA - LEUKOCYTE ESTERASE Negative (Normal) UA - NITRITE Negative (Normal) UA - PH 5.0 (Normal) Comments: 5.5 UA - PROTEIN Negative mg/dL (Normal) UA - SPECIFIC GRAVITY 1.025 (Normal) Comments: 1.030 URINE UROBILINGN JAYDEN TIMED Normal mg/dL (Normal) :02 HgA1C , Office (53665) HgA1C , Office 5.4 % (Normal) Range: 4.6 - 7.1 :02 Blood Glucose , Office (46477) Blood Glucose , Office 136 (Normal) Comments: has eaten 28-Yaq-170546:00 Blood Glucose , Office (97979) Blood Glucose , Office 96 (Normal) 78-Igq-489582:00 HgA1C , Office (82201) HgA1C , Office 5.3 % (Normal) Range: 4.6 - 7.1 38-Qsr-745825:00 Urinalysis, Office (81326) UA - BILIRUBIN Negative (Normal) UA - BLOOD Negative (Normal) UA - GLUCOSE Negative (Normal) UA - KETONES Negative mg/dL (Normal) UA - LEUKOCYTE ESTERASE Trace (Normal) UA - NITRITE Negative (Normal) UA - PH 6.0 (Normal) Comments: 5.5 UA - PROTEIN Negative mg/dL (Normal) UA - SPECIFIC GRAVITY 1.025 (Normal) URINE UROBILINGN JAYDEN TIMED Normal mg/dL (Normal) :00 URINE RUBENS CULTURE-JAYDEN COL Comments: PATIENT NOT FASTINGPERFORMED BY: [facility] HospitalVymnju8841 [facility] [id number] Information: SRC:UR [id number] COUNT (13327) Result 1 ECV (Normal) Comments: Escherichia coli, identified by an automated biochemical system.Greater than 100,000 colony forming units per mL S = Susceptible; I = Intermediate; R = Resistant P = Posi tive; N = Negative MICS are expressed in micrograms per mL Antibiotic RSLT#1 RSLT#2 RSLT#3 RSLT#4Amoxicillin/Clavulanic Acid IAmpicillin RCef azolin SCefepime SCeftriaxone SCefuroxime SCephalothin RCiprofloxacin SESBL NErtapenem SGentamicin SImipenem SLevofloxacin SNitrofurantoin SPiperacillin RTetracycline STobramycin STrimethoprim/Sulfa S Urine Final report (Normal) Culture,Comprehensiv e 32-Dpl-69426:49 Urinalysis, Office (08062) UA - BILIRUBIN Negative (Normal) UA - BLOOD Non Hemolyzed Moderate (Normal) UA - GLUCOSE Negative (Normal) UA - KETONES Negative mg/dL (Normal) UA - LEUKOCYTE ESTERASE Small (Normal) UA - NITRITE Negative (Normal) UA - PH 5.0 (Normal) Comments: 5.5 UA - PROTEIN Negative mg/dL (Normal) UA - SPECIFIC GRAVITY 1.025 (Normal) Comments: 1.030 URINE UROBILINGN JAYDEN TIMED Normal mg/dL (Normal) 52-Kmc-076488:15 Creatine Kinase Total (22816) Comments: PATIENT NOT FASTINGPERFORMED BY: [employer] [facility] Prukfa9144 [facility] [id number] Creatine Kinase,Total,Serum 145 U/L (Normal) Range: 24-173 94-Kxs-729114:15 Sed Rate Erythrocyte (66418) Comments: PATIENT NOT FASTINGPERFORMED BY: [employer] [facility] [id number] [facility] [id number] Sedimentation Rate-Westergren 2 mm/h (Normal) Range: 0-40 00-Iku-727531:15 CALCIFEDIOL (51169) Comments: PATIENT NOT FASTINGPERFORMED BY: [employer] [facility] Ctfzir8706 [facility] [id number] Information: [id number] Vitamin D, 25-Hydroxy 40.9 ng/mL (Normal) Range: 30.0-100.0 Comments: Vitamin D deficiency has been defined by the [place] ofMedicine and an Endocrine Society practice guideline as alevel of serum 25-OH vitamin D less than 20 ng/mL (1,2).The Endocrine Society went on to further define vitamin Dinsufficiency as a level between 21 and 29 ng/mL (2).1. IOM ([place] of Medicine). 2010. Dietary reference intakes for calcium and D. [place]: The National Academies Press.2. Shelby MF, Sergio EAST, Anatoly MERCER, et al. Evaluation, treatment, and prevention of vitamin D deficiency: an Endocrine Society clinical practice guideline. JCEM. 2010; 96(7):1911-30. 24-Joq-632076:15 PARATHORMONE (56826) Comments: PATIENT NOT FASTINGPERFORMED BY: [facility] CenterXvivhx3529 [facility] [id number] PTH, Intact 40 pg/mL (Normal) Range: 15-65 37-Qbh-240369:01 BREAST UNILATERAL Radiology Report See Note (Normal) Comments: PROCEDURE: ULTRASOUND BREAST(S) - RIGHT REASON FOR EXAM: Female, 66 years old. Right breast nodule. TECHNIQUE: Axial and longitudinal images of the RIGHT breast wereperformed with a high resolut ion ultrasound transducer. COMPARISON: Comparison is made with prior mammogram dated November 25, 2011 FINDINGS: RIGHT BREAST:There is a 1 cm x 1.3 cm x 0.7 cm slightly echogenic well-defined noduleinthe retroareolar region of the breast. This most likely represents alipoma. Adjacent to this, there is a 9 mm x 9 mm x 7 mm solid nodulewithposterior acoustical shadowing. A biopsy is recommended. IMPRES SCOTT:Solid nodule with posterior acoustical shadowing in the retroareolarregion, adjacent to a lipoma. A biopsy is recommended. ASSESSMENT CATEGORY:BIRADS Category 4: Suspicious Abnormality - Biopsy S hould Be Considered. Signed:Suleman Chan M.D.November 30, 2011 at 12:49:05 PM [id number] Signed GP/GP If you are the referring physician and would like to consult with theradiologi who provided this interpretation, please contact Margoth Medina at [phone]. If this radiologist is unavailable, youwill be directed to another radiologist to assist. If you are a patien t with a question regarding this report, pleasecontactyour referring physician directly. Professional Interpretation Provided By: [employer], Phone , Dictated on 1044 by Fern Chan MDribed on 11/30/11 1254 by ITS IMPORTSign by Suleman Chan MD on 11/30/11 1255 Sign by: Suleman Chan MD [address]:45 BILAT SCRN DIGITAL & CAD Radiology Report See Note (Normal) Comments: MAMMOGRAPHY - BILATERAL SCREENING REASON FOR EXAM: Female, 66 years old. Routine annual screeningexamination. PERTINENT HISTORY: Non-contributory. TECHNIQUE: Digital examination. Med iolateral ob lique (MLO) andcraniocaudad (CC) views of both breasts were obtained. CAD: CAD wasperformed on this study. COMPARISON: Comparison is made with prior examination dated June. FINDINGS:The br east composition is heterogeneously dense. There is a 1.2-cm rounded nodule in the retroareolar region of the rightbreast. Correlation with ultrasound is recommended. No cluster ofmicrocalcification i s seen. No other significant abnormalities are identified. IMPRESSION:Small nodule in the retroareolar region of the right breast. Correlationwith ultrasound is recommended. ASSESSMENT CATEGORY:BIRADS Category 0: Incomplete. Need additional imaging evaluation and/orprior mammograms for comparison. A letter regarding these results willbesent to the patient by the facility within 30 days. Approximat johana 10% of breast cancers are not detected by mammography. Anormal mammogram should not delay biopsy of a clinically suspiciousabnormality. Signed:Suleman Chan M.D.November 25, 2011 at 9:44:08 AM ED [phone] Signed GP/GP If you are the referring physician and would like to consult with theradiologist who provided this interpretation, please contact Margoth Medina at . If this radiologist is unavailable, youwill be directed to another radiologist to assist. If you are a patient with a question regarding this report, pleasecontactyour referring physician dire ctly. Professional Interpretation Provided By: [employer], Phone , Dictated on 11/25/11922 by Shireen Chan MDranscribed on 11/25/11 113 by ITS IMPORTSign by Suleman Tadeo MD on 11/25/11 1137 Sign by: Suleman Chan MD 96-Bpq-44517:44 DEXA BONE DENSITY STUDY (HP) Radiology Report See Note (Normal) Comments: PROCEDURE: DUAL ENERGY X-RAY ABSORPTIOMETRY / DEXA. REASON FOR EXAM: Female, 66 years old. The patient is postmenopausal. TECHNIQUE: Bone Mineral Density (BMD) measurements of lumbar s pine wasobta ined. The patient is status post bilateral total hip replacement. COMPARISON: None. FINDINGS: Lumbar Spine (L1-L4): g/cm2 (1.221) / T-score (0.4) / Z- score (2.0) IMPRESSION:The patient is consid ered normal, as outlined below according to WorldHealth Organization (WHO) criteria. Fracture risk is low. Reference Information:The T-score is the number of standard deviations above or below thestand mike which is normal for young adults at their peak bone mineraldensity. The World Health Organization (WHO) interprets the T-scores asfollows: Above -1 Normal bone densityBetween -1 and -2.5 OsteopeniaEqual to / or below -2.5 Osteoporosis As a practical clinical guideline, osteopenia may be graded as follows:Mild -1 through -1.5Moderate - 1.6 through -2.0Severe -2.1 through -2.4 The Z- score is the number of standard deviations above or below age-matchedcontrols. A Z-score of less than -1.5 would be considered abnormal. References:1. NIH Osteoporosis and Related Bone Diseases http:// www.osteo.org2. International Society for Clinical Densitometry http://www.iscd.org3. National Osteoporosis Foundation http://www.nof.org Signed:Suleman Chan M.D.November 25, 2011 at 11:00:04 AM ED [id number] Signed GP/GP If you are the referring physician and would like to consult with theradiologist who provided this interpretation, please contact Margoth Medina at [phone]. If this radiologist is unavailable, youwill be directed to another radiologist to assist. If you are a patient with a question regarding this report, pleasecontactyour referring physician dire [facility]. Professional Interpretation Provided By: [employer], Phone , Dictated on 11/25/11 0845 by Rocio FLORES,Fernribed on 11/25/11 1115 by ITS IMPORTSign by Navi almodovar MD,Suleman on 11/25/11 1116 Sign by: Rocio FLORES,Suleman 22-Mgb-06365:38 Microscopic Examination Comments: PATIENT WAS FASTINGPERFORMED BY: [employer] Offnqf8383 [facility] [id number] Bacteria Few (Normal) Mucus Threads Present (Normal) Epithelial Cells (non renal) 0-10 {/hpf} (Normal) Range: 0 - 10 RBC 0-3 {/hpf} (Normal) Range: 0 - 3 WBC 0-5 {/hpf} (Normal) Range: 0 - 5 :38 Request Problem Comments: PATIENT WAS FASTINGPERFORMED BY: [employer] [id number] [facility] [id number] TSH (54685) Comments: PATIENT WAS FASTINGPERFORMED BY: [employer] [id number] [facility] [id number] TSH 1.010 {uIU/mL} (Normal) Range: 0.450-4.500 :38 URINALYSIS, W/ MICRO (84237) Comments: PATIENT WAS FASTINGPERFORMED BY: [employer] Rfgotr1261 [facility] [id number] Microscopic Examination See below: (Normal) Microscopic Examination MICRON (Normal) Comments: Microscopic follows if indicated. Nitrite, Urine Negative (Normal) Urobilinogen,Semi-Qn 0.2 mg/dL (Normal) Range: 0.0-1.9 Bilirubin Negative (Normal) Occult Blood Negative (Normal) Ketones Negative (Normal) Glucose Negative (Normal) Protein Negative (Normal) WBC Esterase Negative (Normal) Appearance Cloudy (Abnormal) Urine-Color Yellow (Normal) pH 7.5 (Normal) Range: 5.0-7.5 Specific [place] 1.019 (Normal) Range: 1.005-1.030 :38 MICROALBUMIN: CREATININE RATIO Comments: PATIENT WAS FASTINGPERFORMED BY: [employer] [facility] SoftwareSaint [facility] [id number] (94471) AND (34163) :38 METABOLIC PANEL, COMPREHENSIVE Comments: PATIENT WAS FASTINGPERFORMED BY: [employer] [facility] [id number] (27642) ALT (SGPT) 25 [iU]/L (Normal) Range: 0-40 AST (SGOT) 24 [iU]/L (Normal) Range: 0-40 Alkaline Phosphatase, S 90 [iU]/L (Normal) Range: 25-165 Bilirubin, Total 0.3 mg/dL (Normal) Range: 0.0-1.2 A/G Ratio 1.9 (Normal) Range: 1.1-2.5 Globulin, Total 2.3 g/dL (Normal) Range: 1.5-4.5 Albumin, Serum 4.3 g/dL (Normal) Range: 3.6-4.8 Protein, Total, Serum 6.6 g/dL (Normal) Range: 6.0-8.5 Calcium, Serum 11.2 mg/dL (Abnormal) Range: 8.6-10.2 Carbon Dioxide, Total 25 mmol/L (Normal) Range: 20-32 Chloride, Serum 104 mmol/L (Normal) Range: 97-108 Potassium, Serum 4.7 mmol/L (Normal) Range: 3.5-5.2 Sodium, Serum 142 mmol/L (Normal) Range: 134-144 BUN/Creatinine Ratio 19 (Normal) Range: 11-26 eGFR If Africn Am 97 mL/min/1.73 (Normal) eGFR If NonAfricn Am 84 mL/min/1.73 (Normal) Creatinine, Serum 0.75 mg/dL (Normal) Range: 0.57-1.00 BUN 14 mg/dL (Normal) Range: 8-27 Glucose, Serum 84 mg/dL (Normal) Range: 65-99 :38 LIPID PANEL (62922) Comments: PATIENT WAS FASTINGPERFORMED BY: [employer] [id number] LDL/HDL Ratio 1.0 {ratio_units} (Normal) Range: 0.0-3.2 LDL Cholesterol Calc 66 mg/dL (Normal) Range: 0-99 VLDL Cholesterol Tab 38 mg/dL (Normal) Range: 5-40 HDL Cholesterol 65 mg/dL (Normal) Comments: According to ATP-III Guidelines, HDL-C >59 mg/dL is considered anegative risk factor for CHD. Triglycerides 191 mg/dL (Abnormal) Range: 0-149 Cholesterol, Total 169 mg/dL (Normal) Range: 100-199 :38 CBC WITH MANUAL DIFF (48794) Comments: PATIENT WAS FASTINGPERFORMED BY: [employer]6370 [facility] [id number] Immature Grans (Abs) 0.0 {x10E3/uL} (Normal) Range: 0.0-0.1 Immature Granulocytes 0 % (Normal) Range: 0-2 Baso (Absolute) 0.0 {x10E3/uL} (Normal) Range: 0.0-0.2 Eos (Absolute) 0.2 {x10E3/uL} (Normal) Range: 0.0-0.4 Monocytes(Absolute) 0.6 {x10E3/uL} (Normal) Range: 0.1-1.0 Lymphs (Absolute) 1.9 {x10E3/uL} (Normal) Range: 0.7-4.5 Neutrophils (Absolute) 3.0 {x10E3/uL} (Normal) Range: 1.8-7.8 Basos 1 % (Normal) Range: 0-3 Eos 3 % (Normal) Range: 0-7 Monocytes 11 % (Normal) Range: 4-13 Lymphs 33 % (Normal) Range: 14-46 Neutrophils 52 % (Normal) Range: 40-74 Platelets 266 {x10E3/uL} (Normal) Range: 140-415 RDW 13.8 % (Normal) Range: 12.3-15.4 MCHC 33.4 g/dL (Normal) Range: 31.5-35.7 MCH 28.3 pg (Normal) Range: 26.6-33.0 MCV 85 fL (Normal) Range: 79-97 Hematocrit 41.3 % (Normal) Range: 34.0-46.6 Hemoglobin 13.8 g/dL (Normal) Range: 11.1-15.9 RBC 4.87 {x10E6/uL} (Normal) Range: 3.77-5.28 WBC 5.9 {x10E3/uL} (Normal) Range: 4.0-10.5 :23 HgA1C , Office (72061) HgA1C , Office 5.7 % (Normal) Range: 4.6 - 7.1 :23 Blood Glucose , Office (68129) Blood Glucose , Office 93 (Normal) Plan of Care Name Dates Details Instructions Encounter for annual general medical examination with abnormal findings in adult : fall reduction handout Indication: Encounter for annual general medical examination with abnormal findings in adult Encounter for annual general medical examination with abnormal findings in adult : elderly packet given Indication: Encounter for annual general medical examination with abnormal findings in adult Encounter for annual general medical examination with abnormal findings in adult : advance planning information Indication: Encounter for annual general medical examination with abnormal findings in adult Encounter for annual general medical examination with abnormal findings in adult : *Weight Loss Discussion Indication: Encounter for annual general medical examination with abnormal findings in adult Encounter for screening for malignant neoplasm of colon (Renamed from Special screening for malignant neoplasms, colon) : *Colon Cancer Screening Indication: Encounter for screening for malignant neoplasm of colon (Renamed from Special screening for malignant neoplasms, colon) Accidental fall, initial encounter : Follow up if no improvement or if symptoms worsen Indication: Accidental fall, initial encounter Wrist pain, left : Continue Current Prescription(s) Indication: Wrist pain, left BMI 31.0-31.9,adult : Eprescribed prescriptions (G8553) Indication: BMI 31.0-31.9,adult Type II diabetes mellitus, well controlled : Follow up in 3 months Indication: Type II diabetes mellitus, well controlled Fatty liver : Diet, Exercise, and Wt loss Indication: Fatty liver Cervical pain : Reviewed Customer Service Officer Letter- in PT Indication: Cervical pain Breast lump on right side at 10 o'clock position : Follow up if no improvement or if symptoms worsen Indication: Breast lump on right side at 10 o'clock position BMI 31.0-31.9,adult : Eprescribed prescriptions (G8553) Indication: BMI 31.0-31.9,adult Cervical pain : Reviewed Diagnostic Tests Indication: Cervical pain Thumb pain, left : Eprescribed prescriptions (G8553) Indication: Thumb pain, left Hyperlipidemia, unspecified : Cholesterol mgmt Indication: Hyperlipidemia, unspecified Hypertension, benign : HTN/CAD Red Flags Indication: Hypertension, benign Type II diabetes mellitus, well controlled : Reviewed Lab Indication: Type II diabetes mellitus, well controlled Type II diabetes mellitus, well controlled : Follow up in 3 months Indication: Type II diabetes mellitus, well controlled Chronic GERD : GERD Education Indication: Chronic GERD Type II diabetes mellitus, well controlled : Eprescribed prescriptions (G8553) Indication: Type II diabetes mellitus, well controlled Nonsmoker : Eprescribed prescriptions (G8553) Indication: Nonsmoker Heart murmur on physical examination : Follow up - Make appt after diagnostic tests Indication: Heart murmur on physical examination Type II diabetes mellitus, well controlled : Follow up in 3 months Indication: Type II diabetes mellitus, well controlled Hyperlipidemia, unspecified : Cholesterol mgmt Indication: Hyperlipidemia, unspecified Hypertension, benign : Diet, Exercise, and Wt loss Indication: Hypertension, benign Hypertension, benign : HTN/CAD Red Flags Indication: Hypertension, benign Cough : Eprescribed prescriptions (G8553) Indication: Cough Infectious warts : Histofreeze - Wart Indication: Infectious warts Earache on right : Eprescribed prescriptions (G8553) Indication: Earache on right Type II diabetes mellitus, well controlled : Eprescribed prescriptions (G8553) Indication: Type II diabetes mellitus, well controlled Hypertension, benign : Continue Current Prescription(s) Indication: Hypertension, benign Type II diabetes mellitus, well controlled : Follow up in 3 months Indication: Type II diabetes mellitus, well controlled Hyperlipidemia, unspecified : Cholesterol mgmt Indication: Hyperlipidemia, unspecified Hypertension, benign : Diet, Exercise, and Wt loss Indication: Hypertension, benign Hypertension, benign : HTN/CAD Red Flags Indication: Hypertension, benign Fatty liver : Reviewed Lab Indication: Fatty liver Type II diabetes mellitus, well controlled : Diet, Exercise, and Wt loss Indication: Type II diabetes mellitus, well controlled Type II diabetes mellitus, well controlled : *Diabetes Education Indication: Type II diabetes mellitus, well controlled Fall at home : Reviewed Diagnostic Tests Indication: Fall at home Annual Medicare Phyiscal WITHOUT abnormal findings (Renamed from Encounter for general adult medical examination without abnormal findings) : fall reduction handout Indication: Annual Medicare Phyiscal WITHOUT abnormal findings (Renamed from Encounter for general adult medical examination without abnormal findings) Annual Medicare Phyiscal WITHOUT abnormal findings (Renamed from Encounter for general adult medical examination without abnormal findings) : elderly packet given Indication: Annual Medicare Phyiscal WITHOUT abnormal findings (Renamed from Encounter for general adult medical examination without abnormal findings) Annual Medicare Phyiscal WITHOUT abnormal findings (Renamed from Encounter for general adult medical examination without abnormal findings) : advance planning information Indication: Annual Medicare Phyiscal WITHOUT abnormal findings (Renamed from Encounter for general adult medical examination without abnormal findings) Annual Medicare Phyiscal WITHOUT abnormal findings (Renamed from Encounter for general adult medical examination without abnormal findings) : *Weight Loss Discussion Indication: Annual Medicare Phyiscal WITHOUT abnormal findings (Renamed from Encounter for general adult medical examination without abnormal findings) Encounter for screening for malignant neoplasm of colon (Renamed from Special screening for malignant neoplasms, colon) : *Colon Cancer Screening Indication: Encounter for screening for malignant neoplasm of colon (Renamed from Special screening for malignant neoplasms, colon) Diabetes mellitus type II, controlled : Follow up in 3 months Indication: Diabetes mellitus type II, controlled Diabetes mellitus type II, controlled : *Diabetes Education Indication: Diabetes mellitus type II, controlled Hyperlipidemia, unspecified : Cholesterol mgmt Indication: Hyperlipidemia, unspecified Hypertension, benign : Diet, Exercise, and Wt loss Indication: Hypertension, benign Hypertension, benign : HTN/CAD Red Flags Indication: Hypertension, benign Fall at home : Follow up if no improvement or if symptoms worsen Indication: Fall at home Left ankle swelling : Eprescribed prescriptions (G8553) Indication: Left ankle swelling Hyperlipidemia, unspecified : Cholesterol mgmt Indication: Hyperlipidemia, unspecified Diabetes mellitus with diabetic neuropathy : Follow up in 3 months Indication: Diabetes mellitus with diabetic neuropathy Hypertension, benign : HTN/CAD Red Flags Indication: Hypertension, benign Diabetes mellitus with diabetic neuropathy : Diabetes and Exercise: Preventing Low Blood Sugar: blood sugar Indication: Diabetes mellitus with diabetic neuropathy Paronychia, left : I/D Cyst/Abscess Indication: Paronychia, left Nonsmoker : Eprescribed prescriptions (G8553) Indication: Nonsmoker Hypertension, benign : HTN/CAD Red Flags Indication: Hypertension, benign Hypertension, benign : Continue Current Prescription(s) Indication: Hypertension, benign Diabetes mellitus with diabetic neuropathy : Follow up in 3 months Indication: Diabetes mellitus with diabetic neuropathy Fatty liver : Diet, Exercise, and Wt loss Indication: Fatty liver Diabetes mellitus with diabetic neuropathy : Eprescribed prescriptions (G8553) Indication: Diabetes mellitus with diabetic neuropathy Diabetes mellitus with diabetic neuropathy : Diabetes and Exercise: Preventing Low Blood Sugar: blood sugar Indication: Diabetes mellitus with diabetic neuropathy Pain of right hand : Reviewed Diagnostic Tests Indication: Pain of right hand Nonsmoker : Eprescribed prescriptions (G8553) Indication: Nonsmoker Wart : Follow up if no improvement or if symptoms worsen Indication: Wart Blood blister : I/D Cyst/Abscess Indication: Blood blister Viral warts, unspecified type : Eprescribed prescriptions (G8553) Indication: Viral warts, unspecified type Depression : Follow up if no improvement or if symptoms worsen Indication: Depression Wart : Liquid Nitrogen - Wart Indication: Wart Pain of hand and fingers : Follow up if no improvement or if symptoms worsen Indication: Pain of hand and fingers Wart : Eprescribed prescriptions (G8553) Indication: Wart History of head injury : Follow up as needed Indication: History of head injury Headache : Follow up in 3 weeks Indication: Headache Concussion : Concussion *: head injury Indication: Concussion Bipolar disorder : Follow up if no improvement or if symptoms worsen Indication: Bipolar disorder Bipolar disorder : Reviewed Lab Indication: Bipolar disorder Vitamin D deficiency disease : Follow up if no improvement or if symptoms worsen Indication: Vitamin D deficiency disease Rash : Eprescribed prescriptions (G8553) Indication: Rash Itching : Follow up if no improvement or if symptoms worsen Indication: Itching Rash : Eprescribed prescriptions (G8553) Indication: Rash Unspecified Diagnosis : Eprescribed prescriptions (G8553) Indication: Unspecified Diagnosis Depression : Follow up if no improvement or if symptoms worsen Indication: Depression Abnormal TSH : Follow up if no improvement or if symptoms worsen Indication: Abnormal TSH Dyskinesia, tardive : Follow up in 1 week Indication: Dyskinesia, tardive Excessive daytime sleepiness : Reviewed Diagnostic Tests Indication: Excessive daytime sleepiness Excessive daytime sleepiness : Reviewed Customer Service Officer Letter Indication: Excessive daytime sleepiness Current nonsmoker (Renamed from Current non-smoker) : fall reduction handout Indication: Current nonsmoker (Renamed from Current non-smoker) Current nonsmoker (Renamed from Current non-smoker) : elderly packet given Indication: Current nonsmoker (Renamed from Current non-smoker) Current nonsmoker (Renamed from Current non-smoker) : advance planning information Indication: Current nonsmoker (Renamed from Current non-smoker) Diarrhea : *Abd Pain Red Flags Indication: Diarrhea Diarrhea : Diarrhea instructions Indication: Diarrhea Yeast dermatitis : Follow up in 2-3 weeks- medicare physical Indication: Yeast dermatitis Yeast dermatitis : Follow up in 1 week- gen med - do hiac- sees lul in october so due in btw nad sees him for hother reasons Indication: Yeast dermatitis Yeast dermatitis : Eprescribed prescriptions (G8553) Indication: Yeast dermatitis Athlete's foot : Follow up if no improvement or if symptoms worsen Indication: Athlete's foot Rash : Eprescribed prescriptions (G8553) Indication: Rash Rash : Follow up in 1 week Indication: Rash Neck pain : Neck Strain *: neck Indication: Neck pain Neck pain : Eprescribed prescriptions (G8553) Indication: Neck pain Hyperlipidemia, unspecified : Hemoglobin A1c Test *: blood sugar Indication: Hyperlipidemia, unspecified Hyperlipidemia, unspecified : Eprescribed prescriptions (G8553) Indication: Hyperlipidemia, unspecified Frequent falls : Eprescribed prescriptions (G8553) Indication: Frequent falls Hip pain : Eprescribed prescriptions (G8553) Indication: Hip pain Falling : Follow up as needed Indication: Falling 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 Bruising : Follow up with psychiatry teacher Indication: Bruising Frequent falls : Eprescribed prescriptions (G8553) Indication: Frequent falls Epigastric Pain : Eprescribed prescriptions (G8553) Indication: Epigastric Pain Diabetes mellitus with diabetic neuropathy : Eprescribed prescriptions (G8553) Indication: Diabetes mellitus with diabetic neuropathy Diabetes mellitus with diabetic neuropathy : Eprescribed prescriptions (G8553) Indication: Diabetes mellitus with diabetic neuropathy Diabetes mellitus type II, controlled : Eprescribed prescriptions (G8553) Indication: Diabetes mellitus type II, controlled Skin tag : Skin Tags Indication: Skin tag Skin tag : Eprescribed prescriptions (G8553) Indication: Skin tag Need for prophylactic vaccination and inoculation against influenza : Flu (Influenza) *: flu Indication: Need for prophylactic vaccination and inoculation against influenza Need for prophylactic vaccination and inoculation against influenza : Flu (Influenza) *: flu shot Indication: Need for prophylactic vaccination and inoculation against influenza Diabetes mellitus with diabetic neuropathy : Eprescribed prescriptions (G8553) Indication: Diabetes mellitus with diabetic neuropathy Panic attack : Anxiety: panic Indication: Panic attack Epigastric Pain : Continue Current Prescription(s) Indication: Epigastric Pain Diarrhea : Acute Diarrhea: acute diarrhea Indication: Diarrhea Epigastric Pain : Continue Current Prescription(s) Indication: Epigastric Pain Need for prophylactic vaccination and inoculation against influenza : Flu (Influenza) *: flu shot Indication: Need for prophylactic vaccination and inoculation against influenza Hypercalcemia : Follow up in 3 months Indication: Hypercalcemia Urinary Frequency : Water in diet, brief version Indication: Urinary Frequency Urinary Frequency : *UTI treatment Indication: Urinary Frequency Hematuria, unspecified : follow up for recheck urine 1 week after complete antibiotic Indication: Hematuria, unspecified Dysuria : *UTI treatment Indication: Dysuria Dysuria : Water in diet, brief version Indication: Dysuria Abdominal pain, acute, right upper quadrant : Follow up in 3 months for Gen med Indication: Abdominal pain, acute, right upper quadrant Abdominal pain, acute, right upper quadrant : Follow up if no improvement or if symptoms worsen Indication: Abdominal pain, acute, right upper quadrant Fatty liver : Follow up in 2 weeks Indication: Fatty liver Fatty liver : Follow up if no improvement or if symptoms worsen Indication: Fatty liver Abdominal pain : *Abd Pain Red Flags Indication: Abdominal pain Diabetic neuropathy : Follow up in [address] [facility] on a Wednesday Indication: Diabetic neuropathy Urgency of urination : Catheter 8F Indication: Urgency of urination Diabetes mellitus type II, controlled : Diabetes Overview (Living with Diabetes): type 2 diabetes mellitus Indication: Diabetes mellitus type II, controlled Hematuria, unspecified : follow up for recheck urine 1 week after complete antibiotic Indication: Hematuria, unspecified Dysuria : *UTI treatment Indication: Dysuria Dysuria : Water in diet, brief version Indication: Dysuria Dizziness and giddiness : Dizziness *: dizziness Indication: Dizziness and giddiness Hypercalcemia : Follow up in 3 months Indication: Hypercalcemia Planned Observations TSH (98516)Indication: Hypothyroidism On: 56-Ywf-54581:08 Request URINALYSIS, W/ MICRO (22923)Indication: Type II diabetes mellitus, well controlled On: :08 Request MICROALBUMIN: CREATININE RATIO (75062) AND (43010)Indication: Type II diabetes mellitus, well controlled On: :08 Request METABOLIC PANEL, COMPREHENSIVE (76158)Indication: Type II diabetes mellitus, well controlled On: :08 Request LIPOPROTEIN, BLD, BY NMR (39974)Indication: Type II diabetes mellitus, well controlled On: : Request CBC W/AUTO DIFF WBC (17154)Indication: Type II diabetes mellitus, well controlled On: : Request Influenza A&B Viral Culture (41746)Indication: Chills On: :08 Request Rapid Flu (47006 x 2)Indication: Cough On: 3-Lmj-379047:07 Request TSTDZ-RGGZMKWYGDI-YYSID (36639)Indication: Fatty liver On: :14 Request Anti-TPO Antibody (83796)Indication: Hypothyroidism On: : Request T4, FREE (THYROXINE) (75488)Indication: Hypothyroidism On: Request T3, FREE (TRIDOTHYRONINE) (75455)Indication: Hypothyroidism On: : Request TSH (71038)Indication: Hypothyroidism On: : Request URINALYSIS, W/ MICRO (84802)Indication: Hypertension, benign On: Request MICROALBUMIN: CREATININE RATIO (58030) AND (50829)Indication: Diabetes mellitus with diabetic neuropathy On: : Request METABOLIC PANEL, COMPREHENSIVE (43412)Indication: Hypertension, benign On: Request CBC W/AUTO DIFF WBC (22613)Indication: Hypertension, benign On: : Request LIPID PANEL (38640)Indication: Hyperlipidemia, unspecified On: : Request CALCIFIDIOL (72795) VIT D 25Indication: Vitamin D deficiency disease On: : Request CALCIFIDIOL (02214) VIT D 25Indication: Vitamin D deficiency disease On: 25-Nxm-180770:12 Request URINALYSIS, W/ MICRO (76535)Indication: Diabetes mellitus with diabetic neuropathy On: 82-Tfj-239973:11 Request MICROALBUMIN: CREATININE RATIO (20879) AND (73799)Indication: Diabetes mellitus with diabetic neuropathy On: 45-Aol-191604:11 Request METABOLIC PANEL, COMPREHENSIVE (06713)Indication: Diabetes mellitus with diabetic neuropathy On: : Request CBC W/AUTO DIFF WBC (86488)Indication: Diabetes mellitus with diabetic neuropathy On: 54-Vtb-449925:11 Request LIPID PANEL (58529)Indication: Hyperlipidemia, unspecified On: : Request TSH (11471)Indication: Hypothyroidism On: : Request Thin Prep Pap (50458)Indication: Encounter for screening for cervical cancer (Renamed from Encounter for screening for malignant neoplasm of cervix) On: :58 Request HgA1C , Office (49900)Indication: Diabetes mellitus with diabetic neuropathy On: :30 Request HPV automatic (07983)Indication: Screening for HPV (human papillomavirus) (Renamed from Encounter for screening for human papillomavirus (HPV)) On: :25 Request LIPID PANEL (41237)Indication: Hypertension, benign On: :19 Request Comments: in three months (approximately) copy to Dr. freire METABOLIC PANEL, COMPREHENSIVE (02495)Indication: Hypertension, benign On: :19 Request T3, TOTAL (TRIDOTHYRONINE) (28658)Indication: Hypothyroidism On: :08 Request T4, TOTAL (17904)Indication: Hypothyroidism On: 9-Azh-635209:08 Request TSH (THYROID STIMULATING HORMONE) (75447)Indication: Hypothyroidism On: :58 Request PARATHORMONE (33471)Indication: Hypercalcemia On: :58 Request CALCIUM, IONIZED (92960)Indication: Hypercalcemia On: 7-Ypv-792264:58 Request Metabolic Panel, Basic (84471)Indication: Diabetes mellitus with diabetic neuropathy On: 9-Nvy-094677:44 Request Comments: recheck in 2-3 weeks on losartan CALCIFIDIOL (35079) VIT D 25Indication: Vitamin D deficiency disease On: 9-Kwi-416812:33 Request TSH (93960)Indication: Hypothyroidism On: :32 Request MICROALBUMIN: CREATININE RATIO (62781) AND (81432)Indication: Diabetes mellitus with diabetic neuropathy On: :32 Request METABOLIC PANEL, COMPREHENSIVE (37103)Indication: Diabetes mellitus with diabetic neuropathy On: :32 Request LIPID PANEL (47569)Indication: Diabetes mellitus with diabetic neuropathy On: :32 Request CBC with auto diff (51381)Indication: Diabetes mellitus with diabetic neuropathy On: : Request PARATHORMONE (18686)Indication: Abnormal blood findings On: 8-Rxg-909544:18 Request URINE RUBENS CULTURE-JAYDEN COL COUNT (08014)Indication: Bacteria in urine On: 3-Zgm-206041:18 Request LIPID PANEL (20302)Indication: Diabetes mellitus with diabetic neuropathy On: 24-May-20138:23 Request CBC WITH MANUAL DIFF (99137)Indication: Melena On: 9-Knt-902093:25 Request PARATHORMONE (49071)Indication: Hypercalcemia On: :21 Request CALCIUM, IONIZED (19963)Indication: Hypercalcemia On: 7-Sdg-238334:21 Request CALCIFIDIOL (46578) VIT D 25Indication: Vitamin D deficiency disease On: 9-Don-039994:20 Request MICROALBUMIN: CREATININE RATIO (78522) AND (68289)Indication: Diabetes mellitus type II, controlled On: 4-Szh-073825:19 Request METABOLIC PANEL, COMPREHENSIVE (80033)Indication: Diabetes mellitus type II, controlled On: 5-Eqq-130906:19 Request LIPID PANEL (21073)Indication: Diabetes mellitus type II, controlled On: 9-Dot-911710:19 Request CBC WITH MANUAL DIFF (67610)Indication: Diabetes mellitus type II, controlled On: 9-Hjr-239564:19 Request HgA1C , Office (91928)Indication: Diabetes mellitus type II, controlled On: 1-Siq-311948:35 Request Comments: 5.6 Hemoglobin Glyclated (HGB A1C) (37404)Indication: Diabetes mellitus type II, controlled On: 17-Oct-20129:35 Request CBC (Auto) (84891)Indication: Abdominal pain, acute, right upper quadrant On: :33 Request PARATHORMONE (35056)Indication: Hypercalcemia On: :33 Request Calcium Serum (44455)Indication: Hypercalcemia On: :33 Request FLURESCNT ANTIB SCRN EA (79088) celiac profileIndication: Abdominal pain, acute, right upper quadrant On: :32 Request IMMUNOASSAY, ANALYTE (NON-INFECT) (77340) celiac profileIndication: Abdominal pain, acute, right upper quadrant On: :32 Request IGA/IGD/IGG/IGM-EACH (85114) celiac profileIndication: Abdominal pain, acute, right upper quadrant On: :32 Request CELIAC DISEASE AB 362114 (59339)Indication: Abdominal pain On: 26-Ubl-342064:17 Request Celiac Disease Comphrehensive Profile (31399)Indication: Abdominal pain On: 84-Rbf-545665:17 Request Troponin I (96680)Indication: Chest pain On: 30-Kji-213363:31 Request CPK MB FRACTION (42817)Indication: Chest pain On: 32-Hpw-032121:31 Request CREATINE KINASE TOTAL (61229)Indication: Chest pain On: 49-Dfa-256520:31 Request TSH (THYROID STIMULATING HORMONE) (81692)Indication: Panic attack On: 81-Eco-746480:27 Request CALCIFEDIOL (50990)Indication: Vitamin D deficiency disease On: 66-Yzo-594037:18 Request TSH (37557)Indication: Hypothyroidism On: 21-Cjj-674363:16 Request MICROALBUMIN: CREATININE RATIO (80743) AND (30740)Indication: Diabetes mellitus type II, controlled On: 95-Xxy-272808:16 Request METABOLIC PANEL, COMPREHENSIVE (57670)Indication: Diabetes mellitus type II, controlled On: 67-Bqp-979787:16 Request LIPID PANEL (17294)Indication: Diabetes mellitus type II, controlled On: 88-Pen-261229:16 Request CBC WITH MANUAL DIFF (36416)Indication: Diabetes mellitus type II, controlled On: 54-Jtb-782750:16 Request URINE RUBENS CULTURE-IDENTIFICATN (58412)Indication: Urgency of urination On: 92-Leu-673819:14 Request CBC with manual diff (05558)Indication: Fall from high place, initial encounter On: :51 Request Comments: drawn in office Calcium Serum (85301)Indication: Fall from high place, initial encounter On: :51 Request Comments: drawn in office Metabolic Panel, Comprehensive (08507)Indication: Fall from high place, initial encounter On: 22-Jan-20129:51 Request Comments: drawn in office TSH (43438)Indication: Fall from high place, initial encounter On: :50 Request Comments: drawn in office, sent to hospital Calcium Serum (70654)Indication: Hypercalcemia On: 68-Aal-207184:42 Request Planned Encounters Medical; General Medical - On: 27-Apr-2018 9:15 Comprehensive Internal Medicine Octavia Nichols DO, DO, Kathleen Planned Procedures Flu Vaccine (Quadrivalent) On: 18-Jan-2018 Intent 80517Uw: Octavia Nichols DO Comments: Lot [id number]-Rt dltd, IMDose prefilled syringegiven by: Faye GARCIAVIS reviewed and ABN signed Octavia Nichols DO [id number] [facility] On: 18-Jan-2018 Intent COUNSELING FOR OBESITY, 15 MINUTES (G0447)By: Octavia Nichols DO, DO, Kathleen Radiology - Wrist - RightBy: On: 12-Jan-2018 Intent Aylin Sierra CNP Radiology - Wrist - LeftBy: On: 12-Jan-2018 Intent Aylin Sierra CNP DIAGNOSTIC BILATERAL On: 10-Dec-2017 Intent MAMMOGRAM (01759)By: Octavia Nichols DO, DO, Kathleen Ultrasound - Breast - On: 07-Dec-2017 Intent RightBy: Karen Gandhi ELECTROCARDIOGRAM, COMPLETE On: 25-Oct-2017 Intent (ECG) (10746)By: Simone HOGUE, Comments: sinus frankie- poor Rwave progression/ no acute chg Octavia Dennison DO DRAIN/INJECT SMALL JOINT OR On: 07-Oct-2017 Intent BURSA ()By: Octavia Nichols DO, DO, Octavia Kenalog Injection, 10 mgm On: 07-Oct-2017 Intent (J3301)By: Simone HOGUE, Comments: 12cc kenalog 1/2cc marcaine injection for left thumblot: AAT 6383exp: 12/2018performed by DO Octavia Romano DO, Kathleen DRAIN/INJECT SMALL JOINT OR On: 05-Oct-2017 Intent BURSA ()By: Simone HOGUE, Comments: R base thumb trigger and oa Octavia Nichols DO, Octavia Radiology - Chest- PA and On: 26-Aug-2017 Intent LatBy: Octavia Nichols DO, DO, Octavia Spirometry (05575)By: Simone On: 26-Aug-2017 Intent Octavia HOGUE DO, Comments: normal -- will not do inhaler at this time for cough Octavia Echo CompleteBy: Simone HOGUE, On: 02-Jul-2017 Intent Octavia Dennison DO US DOPPLER CAROTID BILATERAL On: 02-Jul-2017 Intent (75720)By: Octavia Nichols DO, DO, Octavia Spirometry (73209)By: Simone On: 20-May-2017 Octavia Borden DO, DO, Comments: normal Octavia Wax Currettes (85460)By: On: 12-May-2017 Intent Slarb OPERATOR MAINTAINER, Loli Ear Irrigation (62189)By: On: 12-May-2017 Intent Slarb OPERATOR MAINTAINER, Loli TDAP VACCINE >7 IM (03971)By: On: 23-Mar-2017 Intent Octavia Nichols DO Simone Comments: 5H2H2 lot and exp 04/29/19 lt arm Octavia HOGUE ELECTROCARDIOGRAM, COMPLETE On: 23-Mar-2017 Intent (ECG) (50785)By: Simone HOGUE, Comments: nsr no acute cgh Octavia Dennison DO Flu Vaccine (Quadrivalent) On: 13-Jan-2017 Intent 02647Vt: Octavia Nichols DO Comments: Lot:[id number]:11/01/17Dose:0.5mLRoute:IMSite:L DltdGiven By:JKMQIANA signed Octavia Nichols DO PNEUM VAC ADLT/IMUMNOSPR, On: 28-Dec-2016 Intent SBC/INTRM (39047)By: Simone Comments: lot: [id number]: 12/18/17ite/route: L del/IMamt: 0.5mLVIS signed when applicableChelsea, COMMUNITY COORDINATOR DO, Octavia Nichols DO, Octavia [id number] BEHAVIORAL On: 28-Dec-2016 Intent COUNSELING FOR OBESITY, 15 MINUTES (G0447)By: Octavia Nichols DO, DO, Kathleen SCREENING DIGITAL On: 28-Dec-2016 Intent TOMOSYNTHESIS OF BREAST (28704)By: Octavia Nichols DO, DO, Kathleen Radiology - Ankle - LeftBy: On: 02-Dec-2016 Intent Aylin Sierra CNP CurettesBy: Simone HOGUE, On: 26-Oct-2016 Intent Octavia Dennison DO Ear Irrigation (03305)By: On: 26-Oct-2016 Intent Octavia Nichols DO Comments: R ear gooey lots of wax removed currette used- canals red but not inflamed when done so told her to call if pain develpied DO, Octavia DRAIN/INJECT SMALL JOINT OR On: 10-Jun-2016 Intent BURSA ()By: Octavia Nichols DO Simone DO, Octavia X-RAY OF HAND, THREE VIEWS On: 08-Jun-2016 Intent (91073)By: Simone HOGUE, Comments: attention base of thumb Octavia Simone DO, Octavia X-RAY OF HUMERUS, TWO VIEWS On: 20-Apr-2016 Intent (48349)By: Octavia Nichols DO Simone DO, Octavia X-RAY OF ELBOW, THREE VIEWS On: 20-Apr-2016 Intent (65584)By: Octavia Nichols DO, DO, Kathleen Flu Vaccine (Quadrivalent) On: 11-Mar-2016 Intent 27806Tc: Munira OPERATOR MAINTAINERLoli CT - Brain/Head (Without On: 03-Jan-2016 Intent Contrast)By: Aylin Sierra CNP Comments: Call results to ie today if before 3pm if not call to [facility] inspector balance wheel motion KF E Solu -Medrol Injection, 125 On: 01-Nov-2015 Intent mg (J2930)By: Rigo GRANT, Comments: Lot:[id number]:05/2018Dose:125mgRoute:imSite:r hipGiven By:DAVID signed Antonella ATTENDED SLEEP STUDY On: 25-Oct-2015 Intent (72267)By: Aylin Sierra CNP Comments: schedule with Dr. Letty AbelttesBy: Micki FLORES, On: 30-Sep-2015 Intent Rosa Isela Arias Ear Irrigation (20865)By: On: 30-Sep-2015 Intent Rosa Isela Mcgarry MD Comments: IrrigationSite- L earAmount/Color/Quality - minimal Unable to get all cerumen out at this point due to the cerumen being too hard and patient was getting dizzy. She will go home and use Debrox and then come back to have sprayed agai Pap Smear, Medicare On: 30-Sep-2015 Intent (Q0091)By: Rosa Isela Mcgarry MD BILATERAL MAMMOGRAMS On: 30-Sep-2015 Intent (41156)By: Rosa Isela Mcgarry MD Comments: due November 2015 DEXA SCAN AXIAL SKELETON On: 30-Sep-2015 Intent (98298)By: Rosa Isela Mcgarry MD Ultrasound - Abdomen On: 23-May-2015 Intent CompleteBy: Santy Sahu MD Radiology - Hip - RightBy: On: 23-May-2015 Intent Santy Sahu MD Flu Vaccine (Quadrivalent) On: 26-Feb-2015 Intent 82180Ej: Rosa Isela Mcgarry MD Comments: Lot:[id number]:11/14/15Dose:0.5mLRoute:IMSite:L DltdGiven By:DAVID signed GASTRIC EMPTYING STUDY On: 07-Dec-2014 Intent (90502)By: Rosa Isela Mcgarry MD Ultrasound - ThyroidBy: On: 20-Nov-2014 Intent Rosa Iesla Mcgarry MD Ultrasound - ThyroidBy: On: 21-Aug-2014 Intent Rosa Isela Mcgarry MD MAMMOGRAM, SCREENING, BOTH On: 22-May-2014 Intent BREAST ([id number])By: Rosa Isela Mcgarry MD GASTRIC EMPTYING STUDY On: 22-May-2014 Intent (47829)By: Rosa Isela Mcgarry MD Prevnar 13 (57336)By: On: 22-May-2014 Intent Rosa Isela Mcgarry MD EKG (16777)By: Micki FLORES, On: 22-May-2014 Intent Rosa Isela Arias Comments: see scanned document of test done to see results reviewed today with patient Wax CurettesBy: Micki FLORES, On: 30-Apr-2014 Intent Rosa Isela Arias Ear Irrigation (80079)By: On: 30-Apr-2014 Intent Rosa Isela Mcgarry MD IMMUNIZ ADMNIN, 1 VAC, On: 21-Feb-2014 Intent SNGL/COMBO (18214)By: Micki Comments: Lot #[id number]-L dltd, IMDose prefilled syringegiven by:LAY Parra and Rosa Isela Bolanos MD FLU VAC, SPLIT, >3 YEARS, On: 21-Feb-2014 Intent INTRAMUSC (85255)By: Rosa Isela Mcgarry MD Eprescribed prescriptions On: 19-Sep-2013 Intent (G8553)By: Rosa Isela Mcgarry MD Radiology - Knee - Right - On: 07-Sep-2013 Intent Weight BearingBy: Rosa Isela Mcgarry MD Eprescribed prescriptions On: 07-Sep-2013 Intent (G8553)By: Rosa Isela Mcgarry MD Eprescribed prescriptions On: 24-May-2013 Intent (G8553)By: Jackie Mcgee Eprescribed prescriptions On: 21-Apr-2013 Intent (G8553)By: Rosa Isela Mcgarry MD Eprescribed prescriptions On: 11-Apr-2013 Intent (G8553)By: Jackie Mcgee EKG (01863)By: Micki FLORES, On: 23-Mar-2013 Intent Rosa Isela Arias Comments: see scanned document of test done to see results reviewed today with patient Eprescribed prescriptions On: 23-Mar-2013 Intent (G8553)By: Gabriella Velez LPN FLU VAC, SPLIT, >3 YEARS, On: 21-Feb-2013 Intent INTRAMUSC (91977)By: Agustin Comments: lot [id number]/route L magi, IMamt 0.5mlVIS and ABN signed when applicableJAY JAY Mejia LPN, Megan L ANNUAL DEPRESSION SCREENING, On: 21-Feb-2013 Intent 15 MINUTES (G0444)By: Rosa Isela Mcgarry MD Nuclear Medicine - Gastric On: 21-Feb-2013 Intent Emptying StudyBy: Rosa Isela Mcgarry MD ADMINISTRATION OF INFLUENZA On: 21-Feb-2013 Intent VIRUS VACCINE (G0008)By: Agustin Comments: Lot #[id number]-L dltd, IMDose prefilled syringegiven by:ZANE ParraNVIS and ABN signed Gabriella RATLIFF Eprescribed prescriptions On: 21-Feb-2013 Intent (G8553)By: Gabriella Velez LPN Eprescribed prescriptions On: 28-Nov-2012 Intent (G8553)By: Aylin Sierra CNP SPECIMEN HANDLING/TRANSPORT On: 28-Nov-2012 Intent (45684)By: Mary Sarmiento LPN Nuclear Medicine - [place] On: 16-Sep-2012 Intent w/CPKBy: Jackie Mcgee ELECTROCARDIOGRAM, COMPLETE On: 09-Sep-2012 Intent (ECG) (18188)By: Rigo GRANT, Comments: sinus thythm Aylin Lucas Nuclear Medicine - [place] On: 06-Sep-2012 Intent w/CPKBy: Rosa Isela Mcgarry MD Comments: if us negative Ultrasound - GallbladderBy: On: 06-Sep-2012 Intent Rosa Isela Mcgarry MD Eprescribed prescriptions On: 06-Sep-2012 Intent (G8553)By: Gabriella Velez LPN Eprescribed prescriptions On: 22-Aug-2012 Intent (G8553)By: Aylin Sierra CNP ELECTROCARDIOGRAM, COMPLETE On: 18-Jul-2012 Intent (ECG) (49053)By: Agustin RATLIFF, Comments: see scanned document of test done to see results reviewed today with patient Gabriella Boo Nuclear Stress Test/Stress On: 18-Jul-2012 Intent SPECT/TreadmillBy: Rosa Isela Mcgarry MD Eprescribed prescriptions On: 18-Jul-2012 Intent (G8553)By: Gabriella Velez LPN Eprescribed prescriptions On: 04-Mar-2012 Intent (G8553)By: Mary Sarmiento LPN SPECIMEN HANDLING/TRANSPORT On: 04-Mar-2012 Intent (85890)By: Mary Sarmiento LPN Holter Monitor 24 hrsBy: On: 25-Jan-2012 Intent Rosa Isela Mcgarry MD Echo CompleteBy: Micki FLORES, On: 25-Jan-[address] - Brain/HeadBy: Rigo GRANT, On: 22-Jan-2012 Intent Aylin Lucas Comments: will ask to do in ER ADMINISTRATION OF INFLUENZA On: 14-Jan-2012 Intent VIRUS VACCINE (G0008)By: Bernadine Slaughter FLU VAC, SPLIT, >3 YEARS, On: 14-Jan-2012 Intent INTRAMUSC (13274)By: Bernadine Slaughter DXA, BONE DENSITY, AXIAL On: 09-Nov-2011 Intent SKELETON (67723)By: Micki Comments: loss of height, estrogen def. Rosa Isela FLORES MAMMOGRAM, SCREENING, BOTH On: 09-Nov-2011 Intent BREASTS (94589)By: Rosa Isela Mcgarry MD EKG (18926)By: Micki FLORES, On: 09-Nov-2011 Intent Rosa Isela Arias Comments: see scanned document of test done to see results reviewed today with patient Planned Medications INJECTION, METHYLPREDNISOLONE SODIUM SUCCINATE, UP TO 125 MG Ordered: 01-Nov-2015 Pending Aylin Sierra CNP INJECTION, TRIAMCINOLONE ACETONIDE, NOT OTHERWISE SPECIFIED, 10 MG Ordered: 07-Oct-2017 Pending Octavia Nichols DO, DO, Kathleen Instructions Name Dates Details Flank pain : How to access health information online Indication: Flank pain Flank pain : How to access health information online - Detail Indication: Flank pain Flank pain : Patient Instructions Indication: Flank pain Diabetes mellitus with diabetic neuropathy : obesity counseling Indication: Diabetes mellitus with diabetic neuropathy Nonsmoker : How to access health information online Indication: Nonsmoker Nonsmoker : How to access health information online - Detail Indication: Nonsmoker Nonsmoker : Patient Instructions Indication: Nonsmoker BMI 31.0-31.9,adult : How to access health information online Indication: BMI 31.0-31.9,adult BMI 31.0-31.9,adult : How to access health information online - Detail Indication: BMI 31.0-31.9,adult BMI 31.0-31.9,adult : Patient Instructions Indication: BMI 31.0-31.9,adult Type II diabetes mellitus, well controlled : How to access health information online Indication: Type II diabetes mellitus, well controlled Type II diabetes mellitus, well controlled : How to access health information online - Detail Indication: Type II diabetes mellitus, well controlled Type II diabetes mellitus, well controlled : Patient Instructions Indication: Type II diabetes mellitus, well controlled Skin lesion of breast : Patient Instructions Indication: Skin lesion of breast BMI 31.0-31.9,adult : How to access health information online Indication: BMI 31.0-31.9,adult BMI 31.0-31.9,adult : How to access health information online - Detail Indication: BMI 31.0-31.9,adult Nonsmoker : How to access health information online Indication: Nonsmoker Nonsmoker : How to access health information online - Detail Indication: Nonsmoker Nonsmoker : Patient Instructions Indication: Nonsmoker BMI 30.0-30.9,adult : How to access health information online Indication: BMI 30.0-30.9,adult BMI 30.0-30.9,adult : How to access health information online - Detail Indication: BMI 30.0-30.9,adult BMI 30.0-30.9,adult : Patient Instructions Indication: BMI 30.0-30.9,adult Thumb pain, left : How to access health information online Indication: Thumb pain, left Thumb pain, left : How to access health information online - Detail Indication: Thumb pain, left Thumb pain, left : Patient Instructions Indication: Thumb pain, left Type II diabetes mellitus, well controlled : How to access health information online Indication: Type II diabetes mellitus, well controlled Type II diabetes mellitus, well controlled : How to access health information online - Detail Indication: Type II diabetes mellitus, well controlled Type II diabetes mellitus, well controlled : Patient Instructions Indication: Type II diabetes mellitus, well controlled Nonsmoker : How to access health information online Indication: Nonsmoker Nonsmoker : How to access health information online - Detail Indication: Nonsmoker Nonsmoker : Patient Instructions Indication: Nonsmoker Type II diabetes mellitus, well controlled : How to access health information online Indication: Type II diabetes mellitus, well controlled Type II diabetes mellitus, well controlled : How to access health information online - Detail Indication: Type II diabetes mellitus, well controlled Type II diabetes mellitus, well controlled : Patient Instructions Indication: Type II diabetes mellitus, well controlled Cough : How to access health information online Indication: Cough Cough : How to access health information online - Detail Indication: Cough Cough : Patient Instructions Indication: Cough Nonsmoker : How to access health information online Indication: Nonsmoker Nonsmoker : How to access health information online - Detail Indication: Nonsmoker Nonsmoker : Patient Instructions Indication: Nonsmoker Nonsmoker : How to access health information online Indication: Nonsmoker Nonsmoker : How to access health information online - Detail Indication: Nonsmoker Nonsmoker : Patient Instructions Indication: Nonsmoker Earache on right : How to access health information online Indication: Earache on right Earache on right : How to access health information online - Detail Indication: Earache on right Earache on right : Patient Instructions Indication: Earache on right Type II diabetes mellitus, well controlled : How to access health information online Indication: Type II diabetes mellitus, well controlled Type II diabetes mellitus, well controlled : How to access health information online - Detail Indication: Type II diabetes mellitus, well controlled Type II diabetes mellitus, well controlled : Patient Instructions Indication: Type II diabetes mellitus, well controlled BMI 30.0-30.9,adult : How to access health information online Indication: BMI 30.0-30.9,adult BMI 30.0-30.9,adult : How to access health information online - Detail Indication: BMI 30.0-30.9,adult BMI 30.0-30.9,adult : Patient Instructions Indication: BMI 30.0-30.9,adult Fatty liver : obesity counseling Indication: Fatty liver BMI 30.0-30.9,adult : How to access health information online Indication: BMI 30.0-30.9,adult BMI 30.0-30.9,adult : How to access health information online - Detail Indication: BMI 30.0-30.9,adult BMI 30.0-30.9,adult : Patient Instructions Indication: BMI 30.0-30.9,adult Current nonsmoker (Renamed from Current non-smoker) : How to access health information online Indication: Current nonsmoker (Renamed from Current non-smoker) Current nonsmoker (Renamed from Current non-smoker) : How to access health information online - Detail Indication: Current nonsmoker (Renamed from Current non-smoker) Current nonsmoker (Renamed from Current non-smoker) : Patient Instructions Indication: Current nonsmoker (Renamed from Current non-smoker) Left ankle swelling : How to access health information online Indication: Left ankle swelling Fall at home : How to access health information online - Detail Indication: Fall at home Left ankle swelling : Patient Instructions Indication: Left ankle swelling Current nonsmoker (Renamed from Current non-smoker) : How to access health information online Indication: Current nonsmoker (Renamed from Current non-smoker) Current nonsmoker (Renamed from Current non-smoker) : How to access health information online - Detail Indication: Current nonsmoker (Renamed from Current non-smoker) Current nonsmoker (Renamed from Current non-smoker) : Patient Instructions Indication: Current nonsmoker (Renamed from Current non-smoker) Diabetes mellitus with diabetic neuropathy : How to access health information online Indication: Diabetes mellitus with diabetic neuropathy Diabetes mellitus with diabetic neuropathy : How to access health information online - Detail Indication: Diabetes mellitus with diabetic neuropathy Diabetes mellitus with diabetic neuropathy : Patient Instructions Indication: Diabetes mellitus with diabetic neuropathy Nonsmoker : How to access health information online Indication: Nonsmoker Nonsmoker : How to access health information online - Detail Indication: Nonsmoker Nonsmoker : Patient Instructions Indication: Nonsmoker Diabetes mellitus with diabetic neuropathy : How to access health information online Indication: Diabetes mellitus with diabetic neuropathy Diabetes mellitus with diabetic neuropathy : How to access health information online - Detail Indication: Diabetes mellitus with diabetic neuropathy Diabetes mellitus with diabetic neuropathy : Patient Instructions Indication: Diabetes mellitus with diabetic neuropathy Current nonsmoker (Renamed from Current non-smoker) : How to access health information online Indication: Current nonsmoker (Renamed from Current non-smoker) Current nonsmoker (Renamed from Current non-smoker) : How to access health information online - Detail Indication: Current nonsmoker (Renamed from Current non-smoker) Current nonsmoker (Renamed from Current non-smoker) : Patient Instructions Indication: Current nonsmoker (Renamed from Current non-smoker) BMI 30.0-30.9,adult : Patient Instructions Indication: BMI 30.0-30.9,adult BMI 30.0-30.9,adult : How to access health information online Indication: BMI 30.0-30.9,adult BMI 30.0-30.9,adult : How to access health information online - Detail Indication: BMI 30.0-30.9,adult Nonsmoker : How to access health information online Indication: Nonsmoker Nonsmoker : How to access health information online - Detail Indication: Nonsmoker Nonsmoker : Patient Instructions Indication: Nonsmoker Viral warts, unspecified type : How to access health information online Indication: Viral warts, unspecified type Viral warts, unspecified type : How to access health information online - Detail Indication: Viral warts, unspecified type Viral warts, unspecified type : Patient Instructions Indication: Viral warts, unspecified type Wart : How to access health information online Indication: Wart Wart : How to access health information online - Detail Indication: Wart Wart : Patient Instructions Indication: Wart Excessive gas : Patient Instructions Indication: Excessive gas Headache : Patient Instructions Indication: Headache Rash : How to access health information online Indication: Rash Rash : How to access health information online - Detail Indication: Rash Rash : Patient Instructions Indication: Rash Rash : How to access health information online Indication: Rash Rash : How to access health information online - Detail Indication: Rash Rash : Patient Instructions Indication: Rash Unspecified Diagnosis : How to access health information online Indication: Unspecified Diagnosis Unspecified Diagnosis : How to access health information online - Detail Indication: Unspecified Diagnosis Unspecified Diagnosis : Patient Instructions Indication: Unspecified Diagnosis Falling : Patient Instructions Indication: Falling Annual Medicare Physical (Renamed from Medicare annual wellness visit, subsequent) : How to access health information online Indication: Annual Medicare Physical (Renamed from Medicare annual wellness visit, subsequent) Annual Medicare Physical (Renamed from Medicare annual wellness visit, subsequent) : How to access health information online - Detail Indication: Annual Medicare Physical (Renamed from Medicare annual wellness visit, subsequent) Annual Medicare Physical (Renamed from Medicare annual wellness visit, subsequent) : Patient Instructions Indication: Annual Medicare Physical (Renamed from Medicare annual wellness visit, subsequent) Diabetic neuropathy : How to access health information online Indication: Diabetic neuropathy Diabetic neuropathy : How to access health information online - Detail Indication: Diabetic neuropathy Diabetic neuropathy : Patient Instructions Indication: Diabetic neuropathy Yeast dermatitis : How to access health information online Indication: Yeast dermatitis Yeast dermatitis : How to access health information online - Detail Indication: Yeast dermatitis Athlete's foot : Patient Instructions Indication: Athlete's foot Rash : How to access health information online Indication: Rash Rash : How to access health information online - Detail Indication: Rash Rash : Patient Instructions Indication: Rash Neck pain : How to access health information online Indication: Neck pain Neck pain : How to access health information online - Detail Indication: Neck pain Neck pain : Patient Instructions Indication: Neck pain Hyperlipidemia, unspecified : How to access health information online Indication: Hyperlipidemia, unspecified Hyperlipidemia, unspecified : How to access health information online - Detail Indication: Hyperlipidemia, unspecified Hyperlipidemia, unspecified : Patient Instructions Indication: Hyperlipidemia, unspecified Frequent falls : How to access health information online Indication: Frequent falls Frequent falls : How to access health information online - Detail Indication: Frequent falls Frequent falls : Patient Instructions Indication: Frequent falls Hip pain : How to access health information online Indication: Hip pain Hip pain : How to access health information online - Detail Indication: Hip pain Hip pain : Patient Instructions Indication: Hip pain Bruising : Patient Instructions Indication: Bruising Frequent falls : How to access health information online Indication: Frequent falls Frequent falls : How to access health information online - Detail Indication: Frequent falls Frequent falls : Patient Instructions Indication: Frequent falls Abnormal ultrasound of parathyroid gland : How to access health information online Indication: Abnormal ultrasound of parathyroid gland Abnormal ultrasound of parathyroid gland : How to access health information online - Detail Indication: Abnormal ultrasound of parathyroid gland Abnormal ultrasound of parathyroid gland : Patient Instructions Indication: Abnormal ultrasound of parathyroid gland Degeneration of intervertebral disc of lumbar region : Patient Instructions Indication: Degeneration of intervertebral disc of lumbar region Epigastric Pain : How to access health information online Indication: Epigastric Pain Epigastric Pain : How to access health information online - Detail Indication: Epigastric Pain Epigastric Pain : Patient Instructions Indication: Epigastric Pain Diabetes mellitus with diabetic neuropathy : How to access health information online Indication: Diabetes mellitus with diabetic neuropathy Diabetes mellitus with diabetic neuropathy : How to access health information online - Detail Indication: Diabetes mellitus with diabetic neuropathy Diabetes mellitus with diabetic neuropathy : Patient Instructions Indication: Diabetes mellitus with diabetic neuropathy Diabetes mellitus with diabetic neuropathy : How to access health information online Indication: Diabetes mellitus with diabetic neuropathy Diabetes mellitus with diabetic neuropathy : How to access health information online - Detail Indication: Diabetes mellitus with diabetic neuropathy Diabetes mellitus with diabetic neuropathy : Patient Instructions Indication: Diabetes mellitus with diabetic neuropathy Diabetes mellitus type II, controlled : How to access health information online Indication: Diabetes mellitus type II, controlled Diabetes mellitus type II, controlled : How to access health information online - Detail Indication: Diabetes mellitus type II, controlled Diabetes mellitus type II, controlled : Patient Instructions Indication: Diabetes mellitus type II, controlled Skin tag : How to access health information online Indication: Skin tag Skin tag : How to access health information online - Detail Indication: Skin tag Skin tag : Patient Instructions Indication: Skin tag Diabetes mellitus with diabetic neuropathy : How to access health information online Indication: Diabetes mellitus with diabetic neuropathy Diabetes mellitus with diabetic neuropathy : How to access health information online - Detail Indication: Diabetes mellitus with diabetic neuropathy Diabetes mellitus with diabetic neuropathy : Patient Instructions Indication: Diabetes mellitus with diabetic neuropathy Panic attack : Patient Instructions Indication: Panic attack Knee pain : Patient Instructions Indication: Knee pain Abdominal pain, acute, right upper quadrant : Patient Instructions Indication: Abdominal pain, acute, right upper quadrant Abdominal pain, acute, right upper quadrant : Patient Instructions Indication: Abdominal pain, acute, right upper quadrant Diarrhea : Patient Instructions Indication: Diarrhea Pre-operative examination : Patient Instructions Indication: Pre-operative examination Melena : Patient Instructions Indication: Melena Diabetes mellitus type II, controlled : Patient Instructions Indication: Diabetes mellitus type II, controlled Dysuria : Patient Instructions Indication: Dysuria Abdominal pain : Patient Instructions Indication: Abdominal pain Abdominal pain : Patient Instructions Indication: Abdominal pain Diabetic neuropathy : Patient Instructions Indication: Diabetic neuropathy Epigastric Pain : Patient Instructions Indication: Epigastric Pain Diabetes mellitus type II, controlled : Patient Instructions Indication: Diabetes mellitus type II, controlled Diabetes mellitus type II, controlled : Patient Instructions Indication: Diabetes mellitus type II, controlled Dizziness and giddiness : Patient Instructions Indication: Dizziness and giddiness Encounters Office Visit On: 14-Apr-2018 12:38 Encounter Reason: Flank Pain - This condition occurred without any known injury. The injury involved the left flank. This occurred 1 week(s) ago at home. Symptoms include flank pain, back pain and fever ([place] reporte End: 14-Apr-2018 13:56 d 101 degrees this morning). The pain is located in the left flank.Encounter Diagnosis: Flank pain, Musculoskeletal strain, UTI (urinary tract infection), bacterial, Abnormal urine, Fever and chills [facility] Office Visit On: 18-Jan-2018 8:38 Encounter Reason: Annual Medicare Exam - The patient had reviewed and updated the family history, medication/s and social history. Yes the patient did have a mini mental status exam done today. The activities of daily li End: 18-Jan-2018 10:55 ving the patient needs help with are getting places out of walking distance, housework, managing finances and meal preparation. The patient has fallen in the past 6 months and put handrails in bathroom, but the patient has not had fecal incontinence, had urinary incontinence, missed or ran out of medications to soon, driven in past 6 months, gotten lost, has a medalert necklace or bracelet or put area rugs through house. The patient has completed the following preventative measures: mammography (2018) and colonoscopy (yrs). The patient does not have durable power of contract attorney or living will. The aruna ent has noticed having problems with memory than others. Other providers contributing to the patient's care are other: (endo and phsy).Encounter Diagnosis: BMI 31.0- 31.9,adult, Nonsmoker, Colon polyp, Encounter for annual general medical examination with abnormal findings in adult, Visit for screening mammogram, Postmenopausal, Encounter for screening for malignant neoplasm of colon (Renamed from Special screening for malignant neoplasms, colon), Diabetes mellitus with diabetic neuropathy, Need for prophylactic vaccination and inoculation against influenza (Renamed from Need for immunization against influenza), Memory impairment [facility] Phone Encounter On: 13-Jan-2018 10:28 Encounter Diagnosis: Avulsion fracture of wrist End: 13-Jan-2018 10:38 [facility] Phone Encounter On: 12-Jan-2018 10:28 Encounter Diagnosis: Right wrist pain End: 12-Jan-2018 10:31 [facility] Office Visit On: 12-Jan-2018 9:24 Encounter Reason: Wrist Pain - This condition occurred following a specific injury. The patient is right hand dominant. The injury involved the right wrist. This occurred 3 day(s) ago at home. The injury resulted from a End: 12-Jan-2018 10:20 fall onto the hand. Note for Wrist pain: Rt wrist pain, [ADDITIONAL REASON] Falls, Geriatric - The most recent fall occurred 3 day(s) ago at home (kitchen). The fall resulted from loss of balance. Associated symptoms include pain from the injury. , [ADDITIONAL REASON] Bruise - Left upper arm Encounter Diagnosis: Nonsmoker, BMI 31.0-31.9,adult, Wrist pain, left, Accidental fall, initial encounter [facility] Office Visit On: 05-Jan-2018 8:36 Encounter Reason: Follow up for chronic medical issues - The patient feels well with minor complaints, has decreased energy level and is sleeping well. Patient has been compliant with instructions. Current medication use End: 05-Jan-2018 9:17 : no side effects and compliant with dosing regimen. Patient sleeps 7 hours per night. Impact of disease: emotional impact-mild. Nutrition: balanced diet and supplemental vitamins. The medical issues th e patient is following up for include blood sugar issues, cardiac issues, depression, high blood pressure and other (DDD, tardive dyskensia, fatty liver, hypercalcemia, hyperparathyroid, hearing loss, macular degeneration).Encounter Diagnosis: BMI 31.0-31.9,adult, Nonsmoker, Cervical pain, Hypothyroidism, Fatty liver, Type II diabetes mellitus, well controlled, Bipolar disorder [facility] Annotation/Addendum On: 10-Dec-2017 8:58 Encounter Diagnosis: Abnormal mammogram End: 10-Dec-2017 9:00 [facility] Office Visit On: 07-Dec-2017 8:53 Encounter Reason: Skin Lesions - Symptoms include multiple skin lesions. Lesion(s) are located on the left leg, right buttock and right leg. The patient describes the lesion(s) as crusted, draining, raised, blisters, bum End: 07-Dec-2017 9:39 ps and increasing in size. Onset was 4 day(s) ago. The patient describes this as worsening. Note for Skin lesions: Symptoms started 4 days ago on right breast-with blister like lesions and now they ar e red, hard and greenish middle to it-no drainage. Doesn't itch, or hurt. Also has poison shantell like rash on arms, and legs-itches terrible-has been applying calamine lotion. No fever or chills, SOB, CP, night sweats. Is losing weight-not trying to-unsure of how much she is losing, no appetite. Is just coming off of prednisone from neck injury.Encounter Diagnosis: Breast lump on right side at 10 o'clock position, BMI 31.0- 31.9,adult, Nonsmoker, Skin lesion of breast, Itching, Dermatitis due to plants, including poison shantell, sumac, and oak [facility] Office Visit On: 24-Nov-2017 14:38 Encounter Reason: Follow up ER - Reason for hospitalization note: (fall at home -got dizzy - and jsut fell staright back week ago tues. Now still have the pain is at back of neck and head. Then this week I fell again End: 24-Nov-2017 15:45 and I hurt myself-- this time i tripped on a live trap on the floor and fell.).Encounter Diagnosis: BMI 31.0-31.9,adult, Nonsmoker, Cervical pain, Muscle spasm [facility] Office Visit On: 25-Oct-2017 10:30 Encounter Reason: Pre-Op Visit - The procedure scheduled is a rt foot sx on ?. The surgeon for the procedure will be Dr. Kathy Munoz.Encounter Diagnosis: Nonsmoker, Pre-operative general physical examination, BMI 30.0-30.9,adult, End: 25-Oct-2017 11:53 Type II diabetes mellitus, well controlled, Hyperparathyroidism, primary, Mild mitral regurgitation [facility] Office Visit On: 07-Oct-2017 8:41 Encounter Reason: trigger fingerEncounter Diagnosis: Thumb pain, left, Nonsmoker, BMI 31.0-31.9,adult, Tenosynovitis End: 07-Oct-2017 11:09 [facility] Office Visit On: 05-Oct-2017 9:33 Encounter Reason: Trigger fingerEncounter Diagnosis: BMI 31.0-31.9,adult, Nonsmoker, Thumb pain, right End: 05-Oct-2017 10:20 [facility] Office Visit On: 29-Sep-2017 8:10 Encounter Reason: Follow up for chronic medical issues - The patient feels well with minor complaints, has good energy level and is sleeping well. Patient has been compliant with instructions. Current medication use: no End: 29-Sep-2017 8:41 side effects and compliant with dosing regimen. Patient sleeps 6 hours per night. Nutrition: balanced diet and no supplemental vitamins & iron. The medical issues the patient is following up for inc lude All identified problems below, blood sugar issues, high blood pressure and other. weight :.Encounter Diagnosis: BMI 31.0-31.9,adult, Nonsmoker, Type II diabetes mellitus, well controlled, Mild mitral regurgitation, Chronic GERD, Hypertension, benign, Hyperlipidemia, unspecified, Nutritional counseling, Hyperparathyroidism, primary, Accidental fall, initial encounter, Thumb pain, right [facility] Office Visit On: 26-Aug-2017 10:56 Encounter Reason: Cough - No changes in management were made at the last visit. Symptoms include cough, chills, runny nose (yellow) and sore throat. The cough is described as hacking. Cough onset was sudden 2 week(s) ago End: 26-Aug-2017 14:50 . There is no known event that preceded symptom onset. The cough occurs constantly. Associated symptoms include postnasal drainage. Current treatment includes decongestants.Encounter Diagnosis: Cough, BMI 31.0-31.9,adult, Nonsmoker, Post-nasal drainage, Chronic GERD [facility] Office Visit On: 02-Jul-2017 8:01 Encounter Reason: Follow up for chronic medical issues - The patient feels well with minor complaints, has good energy level and is sleeping well. Patient has been compliant with instructions. Current medication use: no End: 02-Jul-2017 10:56 side effects and compliant with dosing regimen. Patient sleeps 6 hours per night. Nutrition: balanced diet and no supplemental vitamins & iron. The medical issues the patient is following up for inc lude All identified problems below, blood sugar issues, high blood pressure and other. weight :.Encounter Diagnosis: Type II diabetes mellitus, well controlled, BMI 31.0-31.9,adult, RSV (acute bronchiolitis due to respiratory syncytial virus), Hypertension, benign, Current nonsmoker (Renamed from Current non-smoker), Vitamin D deficiency disease, Hyperlipidemia, unspecified, Hyperparathyroidism, primary, Hypothyroidism, Runny nose, Bipolar disorder, Right carotid bruit, Heart murmur on physical examination [facility] Office Visit On: 24-Jun-2017 10:04 Encounter Reason: Cough - No changes in management were made at the last visit. Symptoms include cough, chills, runny nose (yellow) and sore throat. The cough is described as hacking. Cough onset was sudden 1 week(s) ago End: 24-Jun-2017 10:41 . There is no known event that preceded symptom onset. The cough occurs constantly. Associated symptoms include postnasal drainage. Current treatment includes decongestants.Encounter Diagnosis: BMI 31.0-31.9,adult, Current nonsmoker (Renamed from Current non-smoker), Cough, Chills, Sinusitis, bacterial, Diarrhea (787.91) [facility] Office Visit On: 02-Jun-2017 9:32 Encounter Reason: Skin Lesions - The patient presented with a single lesion. There is increasing size, pigmentation change and texture change associated with the lesion(s). Symptoms include single skin lesion. Lesion location includes the right hand. End: 02-Jun-2017 17:41 Encounter Diagnosis: BMI 31.0-31.9,adult, Nonsmoker, Infectious warts [facility] Phone Encounter On: 21-May-2017 16:33 Encounter Diagnosis: Abnormal TSH End: 21-May-2017 16:36 [facility] Office Visit On: 20-May-2017 9:56 Encounter Reason: Upper Respiratory Infection (URI) - No changes in management were made at the last visit. Symptoms include nasal congestion, runny nose, hoarseness and productive cough. Onset was 1 week(s) ago.Encounter Diagnosis: End: 20-May-2017 11:43 BMI 31.0-31.9,adult, Nonsmoker, Cough, Bronchitis, Otitis externa [facility] Office Visit On: 12-May-2017 15:46 Encounter Reason: Earache - The earache is described as a dull ache. It affects the right ear. The pain affects the internal ear. There has been associated nasal discharge/stuffy nose.Encounter Diagnosis: Nonsmoker, Earache on right, End: 12-May-2017 16:05 BMI 31.0-31.9,adult, Ceruminosis, right (Renamed from Excessive cerumen in right ear canal), Runny nose [facility] Office Visit On: 23-Mar-2017 10:35 Encounter Reason: Follow up tests - Date: (03/17/17 labs)., [ADDITIONAL REASON] Follow up for chronic medical issues - The patient feels well with minor complai End: 23-Mar-2017 11:30 nts, has good energy level and is sleeping poorly. Patient has been compliant with instructions. Current medication use: no side effects and compliant with dosing regimen. Patient sleeps 3 hours per nig ht. Nutrition: balanced diet and supplemental vitamins. The medical issues the patient is following up for include All identified problems below, blood sugar issues, high blood pressure and other. Encounter Diagnosis: Nutritional counseling, Fatty liver, Hypertension, benign, Hypothyroidism, Hyperlipidemia, unspecified, Vitamin D deficiency disease, Bipolar disorder, Abnormal TSH, Type II diabetes mellitus, well controlled, Need for Tdap vaccination (Renamed from Need for [id number] (Tdap) vaccine, adult/adolescent) [facility] Visit On: 13-Jan-2017 8:20 Encounter Reason: Follow up ER - Reason for hospitalization note: (fell while walking). Patient has been compliant with instructions. Current medication use: no side effects, compliant with dosing regimen and considered End: 13-Jan-2017 11:26 effective by patient. The patient feels well with minor complaints and is sleeping well. Patient sleeps 7 hours per night. Impact of disease: emotional impact- moderate. Nutrition: balanced diet and supplemental vitamins.Encounter Diagnosis: Current nonsmoker (Renamed from Current non-smoker), BMI 30.0-30.9,adult, Fall at home, Pain of left lower extremity, Stress reaction, Need for prophylactic vaccination and inoculation against influenza (Renamed from Need for immunizati on against influenza) [facility] Office Visit On: 28-Dec-2016 11:18 Encounter Reason: Annual Medicare Exam - The patient had reviewed and updated the family history, medication/s, past medical history and social history. Yes the patient did have a mini mental status exam done today. The End: 28-Dec-2016 12:37 activities of daily living the patient needs help with are laundry and managing finances. The patient has had fecal incontinence, had urinary incontinence, fallen in the past 6 months and put area rugs through house, but the patient has not missed or ran out of medications to soon, driven in past 6 months, gotten lost, has a medalert necklace or bracelet or put handrails in bathroom. The patient has c ompleted the following preventative measures: mammography (?) and colonoscopy (yrs). The patient does not have durable power of contract attorney or living will. The patient has noticed feeling emptiness in life , feeling helpless and having problems with memory than others. Other providers contributing to the patient's care are sql manager and other:.Encounter Diagnosis: Current nonsmoker (Renamed from Current non-smoker), BMI 30.0-30.9,adult, Annual Medicare Phyiscal WITHOUT abnormal findings (Renamed from Encounter for general adult medical examination without abnormal findings), Visit for screening mammogram, Postmenopausal, Encounter for screening for malignant neoplasm of colon (Renamed from Special screening for malignant neoplasms, colon), Colon polyp, Fatty liver, Nutritional counseling [facility] Visit On: 16-Dec-2016 13:55 Encounter Reason: Follow up for chronic medical issues - The patient feels well with minor complaints, has decreased energy level and is sleeping well. Patient has been compliant with instructions. Current medication use End: 16-Dec-2016 14:47 : no side effects and compliant with dosing regimen. Patient sleeps 7 hours per night. Nutrition: balanced diet and supplemental vitamins. The medical issues the patient is following up for include All identified problems below, blood sugar issues, high blood pressure and high cholesterol.Encounter Diagnosis: BMI 31.0-31.9,adult, Current nonsmoker (Renamed from Current non- smoker), Diabetic neuropathy, Hypertension, benign, Hypothyroidism, Vitamin D deficiency disease, Fatty liver, Hyperlipidemia, unspecified, Dyskinesia, tardive, Diabetes mellitus type II, controlled, Rash [facility] Visit On: 02-Dec-2016 10:41 Encounter Reason: Ankle Pain - This condition occurred following a specific injury. The patient sustained an injury to the left ankle. This occurred 1 day(s) ago at home. Symptoms include ankle pain, swelling and difficu End: 02-Dec-2016 11:18 lty bearing weight. Symptoms are located in the left ankle. Onset was 1 day(s) ago. The symptoms occur constantly.Encounter Diagnosis: BMI 30.0-30.9,adult, Current nonsmoker (Renamed from Current non-smoker), Left ankle swelling, Fall at home [facility] Visit On: 26-Oct-2016 11:46 Encounter Reason: Ceruminosis - No changes in management were made at the last visit. Symptoms include ear fullness and ear pain (rt ear). Symptoms are located in both ears. Onset was sudden. The symptoms occur constantl End: 26-Oct-2016 16:24 y. The patient describes this as moderate in severity and worsening., [ADDITIONAL REASON] Warts, Unspecified - The lesions are located on the left hand and right hand. On set was sudden month(s) ago. The patient describes this as moderate in severity. The patient is not currently being treated for this problem. Encounter Diagnosis: BMI 30.0-30.9,adult, Current nonsmoker (Renamed from Current non-smoker), Viral warts, unspecified type, Otalgia, right, Hearing loss due to cerumen impaction, bilateral [facility] Visit On: 14-Sep-2016 10:19 Encounter Reason: Follow up for chronic medical issues - The patient feels well with minor complaints, has decreased energy level and is sleeping poorly. Patient has been compliant with instructions. Current medication u End: 14-Sep-2016 11:17 se: no side effects and compliant with dosing regimen. Patient sleeps 4 hours per night. Nutrition: no supplemental vitamins & iron and poor nutrition. The medical issues the patient is following up for include All identified problems below, blood sugar issues, high blood pressure, high cholesterol and hypothyroid.Encounter Diagnosis: Diabetes mellitus with diabetic neuropathy, Nonsmoker, BMI 30.0-30.9,adult, Extrapyramidal movement disorder, Fatty liver, Vitamin D deficiency disease, Hypertension, benign, Hyperlipidemia, unspecified, Hypothyroidism, Anxiety [facility] Visit On: 09-Jul-2016 9:21 Encounter Reason: Thumb pain - I dont know what I did to rt thumb but it has puss under it and around. It started 3 days agoEncounter Diagnosis: BMI 30.0- 30.9,adult, Nonsmoker, Foreign body of right thumb with infection, Thumb pain, right, End: 09-Jul-2016 10:15 Paronychia, left [facility] Visit On: 15-Jun-2016 11:22 Encounter Reason: Follow up for chronic medical issues - The patient feels well with minor complaints, has decreased energy level and is sleeping poorly. Patient has been compliant with instructions. Current medication u End: 15-Jun-2016 12:49 se: no side effects and compliant with dosing regimen. Patient sleeps 4 hours per night. Nutrition: balanced diet and supplemental vitamins. The medical issues the patient is following up for include Al l identified problems below, blood sugar issues, depression, high blood pressure and high cholesterol. fasting blood sugars : (63-83).Encounter Diagnosis: Diabetes mellitus with diabetic neuropathy, Nonsmoker, BMI 30.0-30.9,adult, Trigger finger of right thumb, Vitamin D deficiency disease, Extrapyramidal movement disorder, Hyperlipidemia, unspecified, Hypothyroidism, Fatty liver, Hypertension, benign [facility] Visit On: 10-Jun-2016 8:59 Encounter Reason: Injections - The medication the patient is here to receive is other.Encounter Diagnosis: BMI 30.0-30.9,adult, Current nonsmoker (Renamed from Current non-smoker), Pain of right hand, Trigger finger of right thumb End: 10-Jun-2016 9:23 [facility] Historical Summary On: 08-Jun-2016 11:39 Encounter Diagnosis: Bipolar disorder End: 08-Jun-2016 11:40 [facility] Visit On: 08-Jun-2016 8:58 Encounter Reason: Muscle weakness - The onset of the muscle weakness has been sudden and has been occurring in a persistent pattern for months. The course has been constant.Encounter Diagnosis: Current nonsmoker (Renamed from Current non-smoker), End: 08-Jun-2016 9:44 BMI 30.0-30.9,adult, Pain of right hand [facility] Visit On: 20-Apr-2016 13:27 Encounter Reason: Warts, Unspecified, [ADDITIONAL REASON] Elbow Problem - This condition occurred following a specific injury (she did fall mowing thye yard about a month ago). The patient is right hand dominant. The injury involved the ri End: 20-Apr-2016 13:57 ght elbow. This occurred 1 month(s) ago at home. Symptoms include decreased range of motion and difficulty extending the elbow. Encounter Diagnosis: Nonsmoker, BMI 27.0-27.9,adult, Right elbow pain, Accidental fall, initial encounter, Viral warts, unspecified type [facility] Visit On: 14-Apr-2016 11:53 Encounter Reason: Skin Lesions - The patient presented with a single lesion. There is increasing size, pigmentation change and texture change associated with the lesion(s). Symptoms include single skin lesion. Lesion location includes the right hand. End: 14-Apr-2016 12:20 Encounter Diagnosis: Wart, BMI 27.0-27.9,adult, Nonsmoker, Blood blister [facility] Visit On: 13-Apr-2016 11:35 Encounter Reason: Warts, UnspecifiedEncounter Diagnosis: Viral warts, unspecified type End: 13-Apr-2016 12:15 [facility] Visit On: 16-Mar-2016 11:29 Encounter Reason: assisted living - Would like to discuss assisted living possibilitiies. Encounter Diagnosis: Pain of hand and fingers, Depression End: 16-Mar-2016 15:40 [facility] Visit On: 11-Mar-2016 12:03 Encounter Reason: Warts, Unspecified - The lesions are located on the right hand. The patient describes this as worsening. Presenting symptoms included warts.Encounter Diagnosis: Wart, End: 11-Mar-2016 15:03 Need for prophylactic vaccination and inoculation against influenza (Renamed from Need for immunization against influenza), Pain of hand and fingers [facility] Visit On: 05-Feb-2016 10:58 Encounter Reason: Transition into care - The patient is transitioning into care from a hospital . Note for Transition into care: Transition from care from office visit to ER to [facility] unit secondary to halluci End: 05-Feb-2016 11:42 nations She was admitted to the geropsychiatric unit then trasferred to [address] seen by psychiatristJonathon arreola continued but low dose Zyprexa 2.5mg at bedtime for symptoms of psychosis and mood stabi lization . Seen by Dr Nga Gustafson MD of [facility] to follow up with Dr. Cline ??on [id number] diagnosis Bipolar mixed with psychotic features Metformin as DCEd mvacor was DCed and norvasc was DCed , [ADDITIONAL REASON] Follow up hospital - Reason for ER visit: note: (mental health). The patient feels well with minor complaints. Current medication use: no side effects. Encounter Diagnosis: Bipolar disorder, Excessive gas [facility] Office Visit On: 24-Jan-2016 7:30 Encounter Reason: Head injury - The type of injury is blunt head trauma. The head injury has been occurring in a persistent pattern for weeks. The course has been recurrent. The accident occured during a fall. There has End: 24-Jan-2016 10:14 been associated headache. Previous evaluation includes CT scan. Note for Head injury: walked out the door of a gas station and called squad but did not want to go to Er by squad because went home with . Hurt left thumb and left armpit. Landed on post. Hit side then went to cement. Does not remember if hit head. Since then, 3 days have had headache on and off. Asking for clearance for colonosc opy on Wednesday. Per Staci at Dr. Montero's office. Reports unusual episode where you thought she saw devil but reported that she threw water bottle and hit ceiling Encounter Diagnosis: Other hallucinations, History of head injury [facility] Visit On: 03-Jan-2016 8:58 Encounter Reason: Head injury - The type of injury is blunt head trauma. The head injury has been occurring in a persistent pattern for days. The course has been recurrent. The accident occured during a fall. There has b End: 03-Jan-2016 9:57 een associated headache. Note for Head injury: walked out the door of a gas station and called squad but did not want to go to Er by squad because went home with . Hurt left thumb and left armp it. Landed on post. Hit side then went to cement. Does not remember if hit head. Since then, 3 days have had headache on and off. Asking for clearance for colonoscopy on Wednesday. Per Staci at Dr. Montero's office. Encounter Diagnosis: Headache, Concussion [facility] Office Visit On: 11-Nov-2015 7:54 Encounter Reason: Follow up acute care visit - The patient feels the same. Patient has been compliant with instructions. Note for Follow up acute care visit: Rash on legs gone. some issues regarding family communicatio End: 11-Nov-2015 9:44 n issues, writing and prayer, but she feels she is getting well. Encounter Diagnosis: Rash, Bipolar disorder [facility] Visit On: 06-Nov-2015 12:58 Encounter Reason: Rash - The last clinic visit was 5 day(s) ago. Symptoms include skin bumps, pain and skin redness. The skin rash is located on the left arm, left leg, right arm and right leg. Onset was sudden 7 day(s) End: 06-Nov-2015 14:56 ago. The symptoms occur constantly. The patient describes this as worsening. By report there is good compliance with treatment. Previous presentation included rash, redness, itching, swelling and bliste ring. Note for Rash: legs worse raised rash red There is no rash on bottom of feet but feels like standing in thistle Face is clearing up Encounter Diagnosis: Rash, Abnormal TSH, Vitamin D deficiency disease [facility] Visit On: 01-Nov-2015 13:31 Encounter Reason: Rash - Symptoms include skin bumps, pain and skin redness. The skin rash is located on the left arm, left leg, right arm and right leg. Onset was sudden 7 day(s) ago. The symptoms occur constantly. The End: 01-Nov-2015 14:26 patient describes this as worsening. By report there is good compliance with treatment. Previous presentation included rash, redness, itching, swelling and blistering.Encounter Diagnosis: Rash, Itching [facility] Visit On: 31-Oct-2015 11:30 Encounter Reason: Rash - Symptoms include rash. The rash is located on the left arm, on the left leg, on the right arm and on the right leg.Encounter Diagnosis: Unspecified Diagnosis End: 31-Oct-2015 13:04 [facility] Visit On: 25-Oct-2015 13:08 Encounter Reason: Follow up ER - Patient has been compliant with instructions. Current medication use: no side effects. The patient feels well with minor complaints (face painful to touch). Note for Follow up ER: fell End: 25-Oct-2015 13:57 at [facility] October 16 after slipping on [facility]. Feeling depressed and falling asleepReports that tells her she holds her breathEncounter Diagnosis: Excessive daytime sleepiness, Dyskinesia, tardive, Depression [facility] Office Visit On: 22-Oct-2015 7:45 Encounter Reason: Follow up ER - Patient has been compliant with instructions. Current medication use: no side effects. The patient feels well with minor complaints (face painful to touch). Note for Follow up ER: fell End: 22-Oct-2015 11:11 at [facility] [place] Diagnosis: Falling, Excessive daytime sleepiness, Abnormal TSH [facility] Phone Encounter On: 18-Oct-2015 15:04 Encounter Diagnosis: Vitamin D deficiency disease End: 18-Oct-2015 15:09 [facility] Office Visit On: 18-Oct-2015 9:53 Encounter Reason: Follow up ER - Reason for hospitalization note: (dizziness/presyncope). Patient has been compliant with instructions. The patient feels well with minor complaints. Patient sleeps 4 (Not sleeping well) h End: 18-Oct-2015 14:57 ours per night. Note for Follow up ER: Family is reporting that she is falling asleep without her knowing it, with food in hands at table. She frequently miss the evening meds. She admits to not being able to be self reliant. Encounter Diagnosis: Excessive daytime sleepiness, Dyskinesia, tardive [facility] Visit On: 30-Sep-2015 8:55 Encounter Reason: Annual Medicare Exam - The patient had reviewed and updated the family history, medication/s, past medical history and social history. Yes the patient did have a mini mental status exam done today. The End: 30-Sep-2015 14:24 activities of daily living the patient needs help with are getting places out of walking distance, shopping for groceries, managing finances and meal preparation. The patient has had urinary incontinenc e, missed or ran out of medications to soon (has alarm on her phone to help remind her ), fallen in the past 6 months (fall handout given ) and put area rugs through house, but the patient has not had f ecal incontinence, driven in past 6 months, gotten lost, has a medalert necklace or bracelet or put handrails in bathroom. The patient has completed the following preventative measures: PAP smear (04-05), mammography (11-27-14) and colonoscopy (2012). The patient does not have durable power of contract attorney or living will. The patient has noticed dissatisfaction with life, dropping activities and interests, feeling emptiness in life, poor spirits most of time, feeling something bad will happen and having problems with memory than others. Other providers contributing to the patient's care are gas trologist (Dr. Montero ) and other: (endo: Dr. Mitchell). Note for Annual Medicare Exam: pt has manager case to help with some of the ADL's.Encounter Diagnosis: Annual Medicare Physical (Renamed from Medicare annual wellness visit, subsequent), Current nonsmoker (Renamed from Current non-smoker), BMI 27.0-27.9,adult, Postmenopausal, Visit for screening mammogram, Screening for HPV (human papillomavirus) (Renamed from Encounter for screening for human papillomavirus (HPV)), Diabetes mellitus with diabetic neuropathy, Degeneration macular, History of kidney stones, Hypertension, benign, Hypercalcemia, Bipolar disorder, Hyperlipidemia, unspecified, Vitamin D deficiency disease, Constipation, chronic, Mild mitral regurgitation, Fatty liver, Extrapyramidal movement disorder, Obesity, unspecified, Degeneration of intervertebral disc of lumbar region, Hyperparathyroidism, primary, Colon polyp, Allergic rhinitis, Anxiety, Abnormal ultrasound of parathyroid gland, Hypothyroidism, Depression, 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 Patient has been compliant with instructions. Current medication use: no End: 05-Sep-2015 12:30 side effects, compliant with dosing regimen and considered effective by patient. Patient sleeps 8 hours per night. Impact of disease: emotional impact-moderate. Nutrition: balanced diet and supplemental vitamins. The medical issues the patient is following up for include cardiac issues, depression, gastric reflux, high blood pressure, high cholesterol, hypothyroid and other (neuropathy, IBS, bipolar, anxiety, fatty liver, vitamin d def., hyperparathyroidism, macular degenration ).Encounter Diagnosis: Diabetic neuropathy, Current nonsmoker (Renamed from Current non- smoker), Pain of fifth toe, Dyskinesia, tardive, Fatty liver, Mild mitral regurgitation, Constipation, chronic, Colon polyp, Frequent falls, Allergic rhinitis (477.9), Degeneration of intervertebral disc of lumbar region, Obesity, unspecified, Extrapyramidal movement disorder, Vitamin D deficiency disease, Hypertension, benign, History of kidney stones, Degeneration macular, Hyperlipidemia, unspecified, Bipolar disorder, Hypercalcemia, Irritable bowel syndrome with diarrhea, Hyperparathyroidism, primary, Anxiety (300.00), Hypothyroidism, Depression, 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 Symptoms include pain and skin redness. There is no known event that preceded symptom onset. The symptoms occur constantly. The patient descr End: 14-Aug-2015 15:52 ibes this as moderate in severity and worsening.Encounter Diagnosis: Yeast dermatitis, Bloating symptom, Irritable bowel syndrome with diarrhea, Diabetes mellitus with diabetic neuropathy [facility] Office Visit On: 02-Aug-2015 7:20 Encounter Reason: Rash - The last clinic visit was 1 week(s) ago. Management changes made at the last visit include adding metanx. Symptoms include skin bumps and skin redness. The skin rash is located on the left trunca End: 02-Aug-2015 11:08 l area and right truncal area. Onset was sudden 1 week(s) ago. There is no known event that preceded symptom onset. The symptoms occur constantly. The patient describes this as worsening. Symptoms are n ot exacerbated by constant allergen contact, continuous moisture, itch-scratch cycle, sunlight, tight clothing, dry air, friction, harsh soaps, hot water or over washing. Symptoms are not relieved by co ld compresses, barrier creams, antihistamines or topical corticosteroids. Associated symptoms include fever (also diarrhea). The patient is not currently being treated for this problem. Previous present ation included rash and redness. Note for Rash: started new med last ??wednesday, started by beauty counselor, ??rash under breast bilateral and chest improving but peeling. Saw foot doctor Encounter Diagnosis: Rash (782.1), Bipolar disorder, Athlete's foot [facility] Visit On: 26-Jul-2015 11:59 Encounter Reason: Rash - The last clinic visit was 1 day(s) ago. No changes in management were made at the last visit. Symptoms include skin bumps and skin redness. The skin rash is located on the left truncal area and r End: 26-Jul-2015 12:20 ight truncal area. Onset was sudden 1 day(s) ago. There is no known event that preceded symptom onset. The symptoms occur constantly. The patient describes this as worsening. Symptoms are not exacerbate d by constant allergen contact, continuous moisture, itch-scratch cycle, sunlight, tight clothing, dry air, friction, harsh soaps, hot water or over washing. Symptoms are not relieved by cold compresses , barrier creams, antihistamines or topical corticosteroids. Associated symptoms include fever (also diarrhea). The patient is not currently being treated for this problem. Previous presentation include d rash and redness. Note for Rash: started new med last wednesday, started by beauty counselor, rash under breast bilateral and chest. Encounter Diagnosis: Rash (782.1) [facility] Office Visit On: 18-Jun-2015 13:09 Encounter Reason: Neck Pain - This condition occurred without any known injury. Symptoms include neck pain. Symptoms are located in the left lateral neck. There is no radiation. The patient describes the pain as sharp. O End: 18-Jun-2015 13:46 nset was 7 week(s) ago. The symptoms occur frequently. The patient describes symptoms as unchanged. Associated symptoms include headache, while associated symptoms do not include upper extremity paresthesias.Encounter Diagnosis: Neck pain [facility] Office Visit On: 04-Jun-2015 10:02 Encounter Reason: Follow up for chronic medical issues - The patient feels well with minor complaints, has good energy level and is sleeping well. Patient has been compliant with instructions. Current medication use: no End: 04-Jun-2015 12:23 side effects and compliant with dosing regimen. Patient sleeps 5 hours per night. Nutrition: balanced diet. The medical issues the patient is following up for include All identified problems below, depr ession, high blood pressure, high cholesterol, hypothyroid and other.Encounter Diagnosis: Depression, Hypercalcemia(275.42), diabetic neuropathy 357.2 (Renamed from Neuropathy (355.9)), Vitamin D deficiency disease, Hypothyroidism, Hypertension, benign, Hyperlipidemia, unspecified, Hyperparathyroidism, primary, Extrapyramidal movement disorder, Degeneration macular, History of kidney stones, Polyneuropathy in diabetes, Bipolar disorder, Degeneration of intervertebral disc of lumbar region, Diabetes mellitus with diabetic neuropathy, Current nonsmoker (Renamed from Current non-smoker), Preop examination, Abnormal ultrasound of parathyroid gland, Mild mitral regurgitation, Thyroid nodule, UTI symptoms, Fatty liver, Frequent falls, Hip pain, Constipation, chronic, Anxiety (300.00), Dyskinesia, tardive, Allergic rhinitis (477.9), Colon polyp, 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, Falling, Obesity, unspecified, Hypotension due to drugs, Bruising [facility] Historical Summary On: 03-Jun-2015 18:35 [facility] End: 03-Jun-2015 18:37 Office Visit On: 23-May-2015 11:20 Encounter Reason: Falls, Geriatric - The most recent fall occurred at home.Encounter Diagnosis: Hip pain, Abdominal pain (789.00), Frequent falls End: 23-May-2015 16:32 [facility] Annotation/Addendum On: 15-May-2015 12:26 Encounter Diagnosis: UTI symptoms End: 15-May-2015 13:41 [facility] Lab Order On: 07-May-2015 16:14 Encounter Diagnosis: UTI symptoms End: 07-May-2015 16:16 [facility] Office Visit On: 07-May-2015 13:48 Encounter Reason: Preoperative evaluation - The patient feels well with minor complaints (tired). Surgical procedures include: other (thyroidectomy,). Date of procedure: (05/16/15) . 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 Current medication use: experiencing side effects.Encounter Diagnosis: Extrapyramidal movement disorder, Falling End: 01-Apr-2015 17:09 [facility] Office Visit On: 27-Mar-2015 13:27 Encounter Reason: Falls, Geriatric - The most recent fall occurred 1 hour(s) ago indoors. The fall resulted from loss of balance. The fall resulted in multiple contusions. Symptoms include recurring falls. The patient de End: 27-Mar-2015 14:49 scribes the symptoms as worsening. Associated symptoms include pain from the injury. Note for Falls: has had amlodipine down Loosing balance a lot Encounter Diagnosis: Dyskinesia, tardive, Extrapyramidal movement disorder, Frequent falls, Bruising [facility] Lab Order On: 21-Mar-2015 14:16 Encounter Diagnosis: Hyperparathyroidism, primary End: 21-Mar-2015 14:21 [facility] Office Visit On: 14-Mar-2015 11:01 Encounter Reason: Follow up acute care visit - The patient feeling better since last seen and improving. Patient has been compliant with instructions. Current medication use: no side effects, compliant with dosing regime End: 14-Mar-2015 11:51 n and considered effective by patient. Patient sleeps 7 hours per night. Impact of disease: emotional impact-moderate. Nutrition: balanced diet and supplemental vitamins. 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 Patient has been compliant with instructions. Current End: 26-Feb-2015 12:18 medication use: no side effects and compliant with dosing regimen. Patient sleeps 4 hours per night. Nutrition: balanced diet.Encounter Diagnosis: Need for prophylactic vaccination and inoculation against influenza, History of kidney stones, Colon polyp, Breast screening, Bipolar (296.80), DEFICIENCY, VITAMIN D NOS (268.9), Mitral Regurgitation (424.0), Anxiety (300.00), DEGENERATION, MACULAR NOS (362.50), diabetic neuropathy 357.2 (Renamed from Neuropathy (355.9)), Hypoglycemia, Polyneuropathy in diabetes (357.2), Degenerative Disc Disease - Lumbar (722.52), Allergic rhinitis (477.9), Chondrocalcinosis, Cerumen impaction, Hypertension, benign, Constipation, chronic, Obesity, unspecified, Hypothyroidism, Hyperlipidemia, unspecified, Hypercalcemia(275.42), Diabetes typeII, controlled, neuro comp (250.60), Fatty Liver (571.8), Thyroid nodule, Depression, 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), Diabetes, Type II, controlled (250.00), Hypotension due to drugs [facility] Office Visit On: 11-Dec-2014 10:42 Encounter Reason: Follow up tests - Diagnostic tests include mammography, other (gastric emptying) and ultrasound. Date: (11/26 and 12/07/14). Current symptoms include other (fidgety). There is no family history of breast End: 11-Dec-2014 12:45 cancer, cardiovascular disease, cystic fibrosis, Down's syndrome, mental retardation, myocardial infarction before age 55 or other.Encounter Diagnosis: Epigastric Pain (789.06), Constipation, chronic, Thyroid nodule, Obesity,unspecified (278.00) [facility] Phone Encounter On: 07-Dec-2014 8:25 Encounter Diagnosis: Fatty Liver (571.8) End: 07-Dec-2014 8:29 [facility] Office Visit On: 20-Nov-2014 9:25 Encounter Reason: Follow up for chronic medical issues - The patient does not feel well, has decreased energy level and is sleeping poorly. Patient has been compliant with instructions. Current medication use: no side ef End: 20-Nov-2014 12:09 fects, compliant with dosing regimen and considered effective by patient. Patient sleeps 3 hours per night. Impact of disease: emotional impact-mild. The medical issues the patient is following up for i nclude All identified problems below, blood sugar issues (DM), high blood pressure, high cholesterol, hypothyroid and other (anxiety, Bipolar, Vit D deficency, DDD).Encounter Diagnosis: Hyperlipidemia, Unspecified (272.4), DEFICIENCY, VITAMIN D NOS (268.9), Bipolar (296.80), Chondrocalcinosis, Abnormal blood findings, DEGENERATION, MACULAR NOS (362.50), Hypothyroidism (244.9), Allergic rhinitis (477.9), Obesity,unspecified (278.00), Hypertension,benign(401.1), Hypoglycemia, diabetic neuropathy 357.2 (Renamed from Neuropathy (355.9)), Degenerative Disc Disease - Lumbar (722.52), CERUMEN IMPACTION (380.4), History of kidney stones, Mitral Regurgitation (424.0), Diabetes typeII, controlled, neuro comp (250.60), Thyroid nodule, Colon polyp, Polyneuropathy in diabetes (357.2), Anxiety (300.00), Panic attack (300.01), Breast screening, Fatty Liver (571.8), Depression (311.), 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 Patient has been compliant with instructions. Current medication use: no side ef End: 21-Aug-2014 11:47 fects, compliant with dosing regimen and considered effective by patient. Patient sleeps 3 hours per night. Impact of disease: emotional impact-mild. The medical issues the patient is following up for i nclude All identified problems below, blood sugar issues (DM), high blood pressure, high cholesterol, hypothyroid and other (anxiety, Bipolar, Vit D deficency, DDD).Encounter Diagnosis: Hypoglycemia, Hypertension,benign(401.1), Diabetes typeII, controlled, neuro comp (250.60), Obesity,unspecified (278.00), CERUMEN IMPACTION (380.4), Degenerative Disc Disease - Lumbar (722.52), diabetic neuropathy 357.2 (Renamed from Neuropathy (355.9)), Abnormal blood findings, Chondrocalcinosis, Bipolar (296.80), Allergic rhinitis (477.9), Hypothyroidism (244.9), DEGENERATION, MACULAR NOS (362.50), Panic attack (300.01), Anxiety (300.00), Polyneuropathy in diabetes (357.2), Breast screening, Bloating, DEFICIENCY, VITAMIN D NOS (268.9), Fatty Liver (571.8), Mitral Regurgitation (424.0), Depression (311.), 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), Skin Tag, Irritated (701.9), History of kidney stones, WWV V73.21, Thyroid nodule [facility] Refill Request On: 14-Jun-2014 8:07 Encounter Diagnosis: Diabetes, Type II, controlled (250.00) End: 14-Jun-2014 8:09 [facility] Phone Encounter On: 13-Jun-2014 16:03 Encounter Diagnosis: Unspecified Diagnosis End: 13-Jun-2014 16:04 [facility] Phone Encounter On: 22-May-2014 11:43 Encounter Diagnosis: Breast screening End: 22-May-2014 11:45 [facility] Annotation/Addendum On: 22-May-2014 11:26 Encounter Diagnosis: Bloating End: 22-May-2014 11:29 [facility] Office Visit On: 22-May-2014 9:52 Encounter Reason: Follow up for chronic medical issues - The patient does not feel well, has decreased energy level and is sleeping poorly. Patient has been compliant with instructions. Current medication use: no side ef End: 22-May-2014 11:05 fects, compliant with dosing regimen and considered effective by patient. Patient sleeps 3 hours per night. Impact of disease: emotional impact-mild. The medical issues the patient is following up for i nclude All identified problems below, blood sugar issues (DM), high blood pressure, high cholesterol, hypothyroid and other (anxiety, Bipolar, Vit D deficency, DDD).Encounter Diagnosis: Diabetes, Type II, controlled (250.00), Anxiety (300.00), Abdominal Pain,LUQ (789.02), Chondrocalcinosis, Abnormal blood findings, Polyneuropathy in diabetes (357.2), Bipolar (296.80), Hypothyroidism (244.9), Panic attack (300.01), Allergic rhinitis (477.9), diabetic neuropathy 357.2 (Renamed from Neuropathy (355.9)), Diabetes typeII, controlled, neuro comp (250.60), Hypertension,benign(401.1), Obesity,unspecified (278.00), Degenerative Disc Disease - Lumbar (722.52), CERUMEN IMPACTION (380.4), Contusion of hip, right, sequela, DEGENERATION, MACULAR NOS (362.50), Mitral Regurgitation (424.0), DEFICIENCY, VITAMIN D NOS (268.9), Fatty Liver (571.8), Depression (311.), 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), Skin Tag, Irritated (701.9), Urinary Frequency (788.41), Need for vaccination against Streptococcus pneumoniae, Bloating [facility] Office Visit On: 30-Apr-2014 8:01 Encounter Reason: Skin LesionsEncounter Diagnosis: CERUMEN IMPACTION (380.4), Skin Tag, Irritated (701.9) End: 30-Apr-2014 8:31 [facility] Office Visit On: 16-Apr-2014 12:02 Encounter Diagnosis: Hematuria, unspecified (599.70), Abdominal Pain,LUQ (789.02), Anxiety (300.00), Bipolar (296.80), Contusion of hip, right, sequela End: 16-Apr-2014 13:12 [facility] Office Visit On: 09-Apr-2014 10:40 Encounter Diagnosis: Abdominal Pain,LUQ (789.02), Hematuria, unspecified (599.70) End: 10-Apr-2014 14:28 [facility] Office Visit On: 22-Mar-2014 9:38 Encounter Reason: Follow up ER - Reason for hospitalization note: (right hip pain, d/t fall ). Patient has been compliant with instructions. Current medication use: no side effects and compliant with dosing regimen. The End: 22-Mar-2014 10:11 patient feels well with minor complaints, has good energy level and is sleeping well. Patient sleeps 7 hours per night. Impact of disease: emotional impact- mild. Nutrition: balanced diet and supplemental vitamins.Encounter Diagnosis: Contusion of hip, right, sequela [facility] Error Encounter On: 09-Mar-2014 12:34 [facility] End: 12-Mar-2014 8:30 Office Visit On: 21-Feb-2014 9:54 Encounter Reason: Follow up for chronic medical issues - The patient feels well with minor complaints (still having a lot of bloating), has decreased energy level and is sleeping poorly. Patient has been compliant with i End: 21-Feb-2014 10:24 nstructions. Current medication use: no side effects, compliant with dosing regimen and considered effective by patient. Patient sleeps 3 hours per night. Impact of disease: emotional impact-mild. The m edical issues the patient is following up for include All identified problems below, blood sugar issues (DM), high blood pressure, high cholesterol, hypothyroid and other (anxiety, Bipolar, Vit D deficency, DDD).Encounter Diagnosis: Need for prophylactic vaccination and inoculation against influenza (V04.81), Fatty Liver (571.8), DEFICIENCY, VITAMIN D NOS (268.9), Polyneuropathy in diabetes (357.2), Allergic rhinitis (477.9), Hypothyroidism (244.9), diabetic neuropathy 357.2 (Renamed from Neuropathy (355.9)), Knee pain, Chondrocalcinosis, DEGENERATION, MACULAR NOS (362.50), Diabetes typeII, controlled, neuro comp (250.60), Degenerative Disc Disease - Lumbar (722.52), Anxiety (300.00), Panic attack (300.01), Hypertension,benign(401.1), Bipolar (296.80), Abnormal blood findings, Obesity,unspecified (278.00), Mitral Regurgitation (424.0), Depression (311.), 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 Patient has been compliant with instructions. Current medication use: experiencing side effects and compliant with dosing regimen.Encounter Diagnosis: Knee pain, End: 19-Sep-2013 9:41 Panic attack (300.01), Anxiety (300.00), Chondrocalcinosis [facility] Office Visit On: 07-Sep-2013 9:02 Encounter Reason: Knee Pain - This condition occurred without any known injury. Symptoms include knee pain, swelling, decreased range of motion and difficulty bearing weight. Symptoms are located in the right knee. The p End: 07-Sep-2013 9:44 ain radiates to the right lower leg (sometimes in the toes). The patient describes the pain as aching. Onset was 7 day(s) ago. Current treatment includes nonsteroidal anti-inflammatory drugs.Encounter Diagnosis: Knee pain [facility] Office Visit On: 25-Jul-2013 9:18 Encounter Reason: Abdominal Pain, Female - The last clinic visit was 2 month(s) ago. Symptoms include abdominal pain. The pain is located in the epigastric area. The patient describes the pain as burning. Onset was sudde End: 25-Jul-2013 9:53 n 1 month(s) ago (on and off for 1 month, comes on suddenly). There is no known event that preceded symptom onset. The symptoms occur intermittently. The patient describes this as moderate in severity a nd worsening. Symptoms are exacerbated by eating and drinking. Associated symptoms include anorexia, while associated symptoms do not include fever, flatulence or dysuria.Encounter Diagnosis: Abdominal Pain,RUQ(789.01), Bipolar (296.80) [facility] Office Visit On: 08-Jun-2013 13:22 Encounter Reason: Abdominal Pain, Female - The last clinic visit was 2 week(s) ago. Symptoms include abdominal pain. The pain is located in the epigastric area. The patient describes the pain as burning. Onset was sudden End: 08-Jun-2013 14:36 1 month(s) ago (on and off for 1 month, comes on suddenly). There is no known event that preceded symptom onset. The symptoms occur intermittently. The patient describes this as moderate in severity an d worsening. Symptoms are exacerbated by eating and drinking. Associated symptoms include anorexia, while associated symptoms do not include fever, flatulence or dysuria.Encounter Diagnosis: Abdominal Pain,RUQ(789.01), Epigastric Pain (789.06) [facility] Office Visit On: 24-May-2013 8:04 Encounter Reason: Follow up for chronic medical issues - The patient feels well with minor complaints (still having a lot of bloating), has decreased energy level and is sleeping poorly. Patient has been compliant with i End: 24-May-2013 8:34 nstructions. Current medication use: no side effects, compliant with dosing regimen and considered effective by patient. Patient sleeps 3 hours per night. Impact of disease: emotional impact-mild. The m edical issues the patient is following up for include All identified problems below, blood sugar issues (DM), high blood pressure, high cholesterol, hypothyroid and other (anxiety, Bipolar, Vit D deficency, DDD).Encounter Diagnosis: DEMENTIA, VASCULAR UNCOMPLICATED (290.40), diabetic neuropathy 357.2 (Renamed from Neuropathy (355.9)), Hypertension,benign(401.1), DEGENERATION, MACULAR NOS (362.50), Epigastric Pain (789.06), Degenerative Disc Disease - Lumbar (722.52), Allergic rhinitis (477.9), Obesity,unspecified (278.00), Hypothyroidism (244.9), Fatty Liver (571.8), Mitral Regurgitation (424.0), Abdominal Pain,RUQ(789.01), Anxiety (300.00), Panic attack (300.01), DEFICIENCY, VITAMIN D NOS (268.9), Polyneuropathy in diabetes (357.2), Bipolar (296.80), Depression (311.), 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 Patient has been compliant with instructions. Current medication use: no side effects and compliant with dosing regimen. The patient feels well End: 21-Apr-2013 13:56 with minor complaints and has decreased energy level. Patient sleeps 7 hours per night. Impact of disease: emotional impact-mild. Nutrition: balanced diet and supplemental vitamins.Encounter Diagnosis: Abdominal Pain,RUQ(789.01), Anxiety (300.00) [facility] Office Visit On: 11-Apr-2013 11:16 Encounter Reason: Diarrhea - Adult - Symptoms include diarrhea, abdominal cramps, nausea and vomiting (on wednesday). The stools are described as watery. Onset was 4 day(s) ago. This is described as worsening. The patient i End: 11-Apr-2013 11:50 s not currently being treated for this problem. Note for Diarrhea: low grade fever. some chills. not relate to something ate. drinking alot water. stomach cramps. 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 The course has been constant. The bloody stools are characterized as tar End: 22-Feb-2013 16:48 ry black stools. The symptoms have been associated with abdominal pain and diarrhea, while the symptoms have not been associated with hard stools.Encounter Diagnosis: Epigastric Pain (789.06), Abdominal Pain,RUQ(789.01), Melena (578.1) [facility] Office Visit On: 21-Feb-2013 10:46 Encounter Reason: Follow up for chronic medical issues - The patient feels well with no complaints, has decreased energy level and is sleeping poorly. Patient has been compliant with instructions. Current medication use: End: 21-Feb-2013 17:39 no side effects, compliant with dosing regimen and considered effective by patient. Patient sleeps 5 hours per night. Impact of disease: no overall impact. The medical issues the patient is following u p for include All identified problems below, blood sugar issues (DM), high blood pressure, high cholesterol, hypothyroid and other (anxiety, Bipolar, Vit D deficency, DDD).Encounter Diagnosis: Diabetes, Type II, controlled (250.00), Depression (311.) , Need for prophylactic vaccination and inoculation against influenza (V04.81), DEMENTIA, VASCULAR UNCOMPLICATED (290.40), Obesity,unspecified (278.00), Hypothyroidism (244.9), Hypertension,benign(401.1), DEFICIENCY, VITAMIN D NOS (268.9), Polyuria (788.42), Allergic rhinitis (477.9), DEGENERATION, MACULAR NOS (362.50), Anxiety (300.00), Panic attack (300.01), Fatty Liver (571.8), Degenerative Disc Disease - Lumbar (722.52), Burning sensation of stomach, Rash (782.1), Neuropathy (355.9), Epigastric Pain (789.06), Polyneuropathy in diabetes (357.2), Bipolar (296.80), 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 Patient has been compliant with instructions. Current medication use: no side effects, compliant with dosing regimen and not consid End: 03-Feb-2013 11:23 ered effective by patient (increasing prilosec to 2 qd not effective ). The medical issues the patient is following up for include All identified problems below and other (Epigastric pain )., [ADDITIONAL REASON] Skin Problems - The onset of the skin problems has been sudden and they have been occurring in a persistent pattern for 2 weeks. The course has been increasing. The problem is teri cterized as a change in skin color. Lesions are described as red and raised above the skin. The spots were first seen on the trunk. There has been no progression. There has been no associated fatigue, itching or pain. 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 Patient has been compliant with instructions. Current medication use: End: 21-Dec-2012 10:38 no side effects, compliant with dosing regimen and considered effective by patient. Patient sleeps 5 hours per night. Impact of disease: no overall impact. The medical issues the patient is following u p for include All identified problems below, blood sugar issues (DM), high blood pressure, high cholesterol, hypothyroid and other (anxiety, Bipolar, Vit D deficency, DDD).Encounter Diagnosis: Diabetes, Type II, controlled (250.00), Urinary Frequency (788.41), Hypercalcemia(275.42) [facility] Phone Encounter On: 09-Dec-2012 11:12 Encounter Diagnosis: Unspecified Diagnosis End: 09-Dec-2012 11:17 [facility] Phone Encounter On: 08-Dec-2012 15:17 Encounter Diagnosis: Polyuria (788.42) End: 08-Dec-2012 15:20 [facility] Office Visit On: 05-Dec-2012 8:26 Encounter Reason: Follow up acute care visit - The patient feeling better since last seen and improving. Patient has been compliant with instructions. Current medication use: no side effects, compliant with dosing regime End: 05-Dec-2012 9:39 n and considered effective by patient. The medical issues the patient is following up for include UTI.Encounter Diagnosis: Polyuria (788.42), Hematuria, unspecified (599.70) [facility] Office Visit On: 28-Nov-2012 8:39 Encounter Reason: Urinary problems - The onset of the urinary problems has been sudden and they have been occurring in a persistent pattern for 3 days. The course has been constant. The urinary problems are described as End: 28-Nov-2012 9:16 moderate. The urinary problem is characterized as frequency and urgency. There has been associated back pain.Encounter Diagnosis: Dysuria (788.1), Hematuria, unspecified (599.70) [facility] Phone Encounter On: 21-Nov-2012 17:03 Encounter Diagnosis: DEFICIENCY, VITAMIN D NOS (268.9) End: 21-Nov-2012 17:07 [facility] Office Visit On: 14-Nov-2012 9:33 Encounter Reason: Follow up, Diagnostic Procedure Results - Diagnostic tests include other (labs ). Date: (10-20-12). Current symptoms include other (dysuria ).Encounter Diagnosis: Dysuria (788.1), Hypertension,benign(401.1), Anxiety (300.00), End: 14-Nov-2012 10:01 Epigastric Pain (789.06), Hypercalcemia(275.42) [facility] Office Visit On: 17-Oct-2012 9:10 Encounter Diagnosis: Abdominal Pain,RUQ(789.01), Degenerative Disc Disease - Lumbar (722.52), Hypercalcemia(275.42), Diabetes, Type II, controlled (250.00) End: 17-Oct-2012 9:36 [facility] Lab Order On: 07-Oct-2012 15:16 Encounter Diagnosis: Abdominal pain (789.00) End: 07-Oct-2012 15:17 [facility] Office Visit On: 23-Sep-2012 10:12 Encounter Reason: Follow up tests - Diagnostic tests include other (Abd U/S ). Date: (09/20/12).Encounter Diagnosis: Abdominal Pain,RUQ(789.01) End: 23-Sep-2012 11:12 [facility] Phone Encounter On: 16-Sep-2012 15:24 Encounter Diagnosis: Abdominal pain (789.00) End: 16-Sep-2012 15:29 [facility] Office Visit On: 09-Sep-2012 10:53 Encounter Reason: Anxiety - Symptoms include anxiety and fatigue. Onset was sudden 1 day(s) ago. The patient describes this as mild. Symptoms are exacerbated by fatigue and stress. Associated symptoms include chest pain End: 09-Sep-2012 11:41 (in the middle of the breast bone)., [ADDITIONAL REASON] Chest Pain - Symptoms include chest pain (Began after ultrasound ). The pain is located in the substernal area. There is no radiation. The patient describes the pain as burning. Ons et was sudden hour(s) ago. Onset followed none (after ultrasound of abdomen ). The symptoms occur constantly. The patient describes this as severe and worsening. Encounter Diagnosis: Panic attack (300.01), Chest pain (786.50), Abdominal pain (789.00), Fatty Liver (571.8) [facility] Annotation/Addendum On: 08-Sep-2012 14:41 Encounter Diagnosis: DEFICIENCY, VITAMIN D NOS (268.9), Hypertension,benign(401.1) End: 08-Sep-2012 14:47 [facility] Office Visit On: 06-Sep-2012 11:27 Encounter Reason: Abdominal Pain, Female - Symptoms include abdominal pain. The pain is located in the epigastric area. The patient describes the pain as dull and aching. Onset was sudden 1 month(s) ago (on and off for 1 End: 06-Sep-2012 11:47 month, comes on suddenly). There is no known event that preceded symptom onset. The symptoms occur intermittently. The patient describes this as moderate in severity and worsening. Symptoms are exacerb ated by eating and drinking. Associated symptoms include anorexia, while associated symptoms do not include fever, flatulence or dysuria.Encounter Diagnosis: Abdominal pain (789.00), Bacteria in urine (791.9) [facility] Refill Request On: 01-Sep-2012 14:21 Encounter Diagnosis: Epigastric Pain (789.06) End: 01-Sep-2012 14:22 [facility] Office Visit On: 22-Aug-2012 9:06 Encounter Reason: Follow up acute care visit - The patient feels the same and improving. Patient has been compliant with instructions. Current medication use: no side effects, compliant with dosing regimen and not consid End: 22-Aug-2012 10:18 ered effective by patient. The medical issues the patient is following up for include All identified problems below and other (epigastric pain).Encounter Diagnosis: Urinary Frequency (788.41), Abdominal pain (789.00), Neuropathy (355.9) [facility] Office Visit On: 08-Aug-2012 15:43 Encounter Reason: Abdominal Pain, Female - Symptoms include abdominal pain. The pain is located in the epigastric area. The patient describes the pain as dull and aching. Onset was sudden 10 day(s) ago. There is no known End: 08-Aug-2012 16:21 event that preceded symptom onset. The symptoms occur constantly. The patient describes this as moderate in severity and worsening. Symptoms are exacerbated by eating and drinking. Associated symptoms include anorexia, while associated symptoms do not include fever, flatulence or dysuria.Encounter Diagnosis: Urgency of urination (788.63), Epigastric Pain (789.06) [facility] Office Visit On: 25-Jul-2012 9:09 Encounter Reason: Follow up tests - Date: (07.19.2012).Encounter Diagnosis: CHEST PAIN (786.59) End: 25-Jul-2012 9:29 [facility] Office Visit On: 18-Jul-2012 8:59 Encounter Reason: Follow up for chronic medical issues - The patient feels well with minor complaints and has decreased energy level. Patient has been compliant with instructions. Current medication use: no side effects, End: 18-Jul-2012 9:27 compliant with dosing regimen and considered effective by patient. Patient sleeps 7 hours per night. Impact of disease: emotional impact-mild. Nutrition: balanced diet and supplemental vitamins. The me dical issues the patient is following up for include blood sugar issues, cardiac issues, depression (anxiety, bipolar ), high blood pressure, high cholesterol, hypothyroid and other (neuropathy, dementi a, fatty liver, vitamin d def., macular degeneration ).Encounter Diagnosis: Diabetes, Type II, controlled (250.00), Hypertension,benign(401.1), Urgency of urination (788.63), Breast Lump(611.72), Polyneuropathy in diabetes (357.2), Hypercholesteremia (272.0), Bradycardia (427.89), DEGENERATION, MACULAR NOS (362.50), Hematuria, unspecified (599.70), Fatty Liver (571.8), Allergic rhinitis (477.9), DEFICIENCY, VITAMIN D NOS (268.9), Bipolar (296.80), Hypercalcemia(275.42), Obesity,unspecified (278.00), Anxiety (300.00), Hypothyroidism (244.9), Depression (311.), 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 Patient has been compliant with instructions. Current medication use: no side effects, End: 11-Apr-2012 11:22 compliant with dosing regimen and considered effective by patient. Patient sleeps 7 hours per night. Impact of disease: emotional impact-mild. Nutrition: balanced diet and supplemental vitamins. The me dical issues the patient is following up for include blood sugar issues, cardiac issues, depression (anxiety, bipolar ), high blood pressure, high cholesterol, hypothyroid and other (neuropathy, dementi a, fatty liver, vitamin d def., macular degeneration ).Encounter Diagnosis: Urgency of urination (788.63), Diabetes, Type II, controlled (250.00), Polyneuropathy in diabetes (357.2), Hypercholesteremia (272.0), Bipolar (296.80), Allergic rhinitis (477.9), Hypothyroidism (244.9), Anxiety (300.00), DEFICIENCY, VITAMIN D NOS (268.9), Obesity,unspecified (278.00), Hypercalcemia(275.42), Hypertension,benign(401.1), 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 The course has been increasing. The urinary problems are described as End: 04-Mar-2012 9:11 moderate. The urinary problem is characterized as frequency and painful urination. There has been no associated fever / chills, back pain, nausea or blood in urine. Note for Urinary problems: taking bath instead of shower so think cause Encounter Diagnosis: Dysuria (788.1), Hematuria, unspecified (599.70) [facility] Office Visit On: 08-Feb-2012 15:28 Encounter Diagnosis: Diabetes, Type II, controlled (250.00) End: 08-Feb-2012 15:29 [facility] Office Visit On: 28-Jan-2012 12:30 Encounter Reason: Dizziness - The last clinic visit was 1 week(s) ago. Symptoms include dizziness and weakness. The dizziness is described as lightheadedness, faintness, vertigo and loss of balance. Onset was sudden 1 we End: 28-Jan-2012 15:19 ek(s) ago. Onset followed a head injury.Encounter Diagnosis: Bradycardia (427.89), Dizziness(780.4), Anxiety (300.00), VERTIGO, BENIGN PAROXYSMAL POSITION (386.11) [facility] Office Visit On: 25-Jan-2012 9:55 [facility] End: 25-Jan-2012 21:05 Office Visit On: 25-Jan-2012 9:23 Encounter Reason: Follow up hospital - Reason for ER visit: note: (vertigo, bradycardia, falling ). The patient feels well with minor complaints and has good energy level. Patient has been compliant with instructions. Cu End: 25-Jan-2012 9:52 rrent medication use: no side effects and compliant with dosing regimen. Patient sleeps 7 hours per night. Impact of disease: emotional impact-moderate. Nutrition: balanced diet and supplemental vitamins.Encounter Diagnosis: Bradycardia (427.89), FALL FROM HIGH PLACE AT RESIDENCE (E987.0) [facility] Office Visit On: 22-Jan-2012 9:07 Encounter Reason: Dizziness - The last clinic visit was 1 week(s) ago. Symptoms include dizziness and weakness. The dizziness is described as lightheadedness, faintness, vertigo and loss of balance. Onset was sudden 1 we End: 22-Jan-2012 9:53 ek(s) ago. 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 Date: (01/12/12). Current symptoms include anxiety (pt is fearful in losing her and being alone and is currently very emotional.).Encounter Diagnosis: End: 14-Jan-2012 11:45 Need for prophylactic vaccination and inoculation against influenza (V04.81), Anxiety (300.00), Hypercalcemia(275.42), Symptom, Weakness (728.87), Breast Lump(611.72) [facility] Phone Encounter On: 28-Dec-2011 9:57 Encounter Diagnosis: Hypercholesteremia (272.0), Hypertension,benign(401.1) End: 28-Dec-2011 9:59 [facility] Office Visit On: 01-Dec-2011 14:21 Encounter Reason: Follow up tests - Date: (November 2011 - labs, mammo and bone dx).Encounter Diagnosis: Obesity,unspecified (278.00), DEFICIENCY, VITAMIN D NOS (268.9), Hypercalcemia(275.42), Breast Lump(611.72), Symptom, Weakness (728.87) End: 02-Dec-2011 21:19 [facility] Phone Encounter On: 26-Nov-2011 9:40 Encounter Diagnosis: Allergic rhinitis (477.9) End: 26-Nov-2011 9:41 [facility] Office Visit On: 09-Nov-2011 13:58 Encounter Reason: new patient female physical - Last seen between 1-3 months ago. General health: does not feel well and has decreased energy level. The patient's appetite is normal. Nutrition: normal/adequate. Exercises End: 09-Nov-2011 14:57 0 days per week. Sleeps on average 5 hours per night. Normal bowel and bladder habits. Safety measures include appropriate use of safety belts and home smoke detectors. Current emotional problems inclu de anxiety, apprehension, depression, nervousness and sleep disturbances. screening, colonoscopy (approx. [address] Nunes ), screening, mammography (3-4 years ago ), screening, Pap smear (Dr. 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
--- OUTSIDE RECORDS SUMMARY | 2018-08-03 18:48 | XMS RPT_ITS | Continuity of Care Document ---
:1945 Author Organization [facility] Address [address] [facility] [address] [place] [address] Phone Care Team Providers Name Role Phone Octavia Nichols DO Unavailable Alonso FLORES, Dr. Myla Arias Unavailable Dr. Fredy Cox Unavailable Jeana Juarez MD Unavailable [facility], [facility] Unavailable Ruma FLORES, Jaron Meléndez Unavailable Radha [...] Comments: told pt to call counseling center [facility] because panic worsen. see Dr. 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 parkinsons vs drug interaction will be discussing with Psych nurse and neurologist recent fall at [facility] Status: Active Fatty liver (K76.0, 571.8) Status: Active Flank pain (R10.9, 789.09) Status: [...] Mild mitral regurgitation (I34.0, 424.0) Comments: echo 08/01 and stable with no chg Status: Active Muscle spasm (M62.838, 728.85) Status: Active Muscle spasm (M62.838, 728.85) Status: Active Musculoskeletal strain (T14.8XXA, 848.9) Status: Active Need for prophylactic vaccination and inoculation against influenza (Renamed from Need for immunization against influenza) (Z23, V04.81) Status: Active Need for prophylactic vaccination and inoculation against influenza (Renamed from Need for immunization against influenza) (Z23, V04.81) Status: Active Need for Tdap vaccination (Renamed from Need for ruvccmdllj-ekdnvlr-jnzxujwmd (Tdap) vaccine, adult/adolescent) (Z23, V06.1) Status: Active [...] being told to dig with thoughts of jain overtones Status: Active Pain of hand and [...] diabetes mellitus, well controlled (E11.9, 250.00) Comments: [facility] 09/29/17 5.9 well controlled Status: Active Unspecified Diagnosis Status: Active Unspecified Diagnosis Status: Active Unspecified Diagnosis Status: Active UTI (urinary tract infection), bacterial (N39.0, 599.0) Status: Active Visit for screening mammogram (Z12.31, V76.12) Comments: 2017 Status: Active Vitamin D deficiency disease (E55.9, 268.9) Status: Active Wart (B07.9, 078.10) Comments: irritated with infection Status: Active Medications Name Dates Details BusPIRone HCl 15 MG Oral Tablet 1 (one) Tablet 1 qam and 2 qpm for 30 days Quantity: 180 {Tablet} Refills: 7 Ordered:29-Sep-2017 Yany Nichols DO, DO, Kathleen Start : 29-Sep-2017 Active Comments:pt takes as neededpsych prescribes CITRACAL SLOW RELEASE, [id number]-MG-UNIT (Oral Tablet Extended Release 24 Hour) 2 (two) Tablet ER 24HR Tablet ER 24HR daily for 0 days Quantity: 30 {Tablet} Refills: 0 Ordered:11-Nov-2015 Loli Lombardo LPN Start : 06-Nov-2015 Active Comments:per Dr. Armstrong with supper FREESTYLE LANCETS (Miscellaneous) 1 (one) Misc Misc qd for 0 days Quantity: 1 {Box} Refills: 11 Ordered:20-Aug-2015 Rosa Isela Sweet MD Start : 20-Aug-2015 Active FREESTYLE LITE TEST (In Vitro Strip) 1 (one) Strip qd for 0 days Quantity: 1 {Box} Refills: 6 Ordered:20-Aug-2015 Rosa Isela Sweet MD Start : 20-Aug-2015 Active LAMICTAL, 150MG (Oral Tablet) 1 qhs (150 MG) Active Levaquin 500 MG Oral Tablet 1 (one) Tablet qd for 0 days Quantity: 10 {Tablet} Refills: 0 Ordered:27-Apr-2018 Yany Nichols DO, DO, Kathleen Start : 27-Apr-2018 Active Levothyroxine Sodium 150 MCG Oral Tablet [...] Kathleen Start : 12-Jan-2018 Active TiZANidine HCl 2 MG Oral Tablet 1 (one) Tablet bid for 0 days Quantity: 30 {Tablet} Refills: 0 Ordered:27-Apr-2018 Yany Nichols DO, DO, Kathleen Start : 27-Apr-2018 Active ZOLOFT, 100MG (Oral Tablet) 1 (one) Tablet qd for 0 days Quantity: 30 {Tablet} Refills: 3 Ordered:30-Sep-2015 Rosa Isela Sweet MD Start : 30-Sep-2015 Active AMOXICILLIN, 875MG (Oral Tablet) 1 (one) Tablet bid for 0 days Quantity: 10 {Tablet} Refills: 0 Ordered:04-Jun-2015 Jackie Mcgee Start : 23-May-2015 End : 04-Jun-2015 Inactive Comments:[facility] sent it in for her per last emr msg but done see in chart but patient states she has it ATIVAN, 0.5MG (Oral Tablet) 1 Tablet q6-8 hrs prn for anxiety for 0 days Quantity: 20 {Tablet} Refills: 0 Ordered:17-Oct-2012 HOME Byrne Start : 15-Sep-2012 End : 17-Oct-2012 Inactive Comments:called to [facility] 09-15-12 kizzy BACTRIM DS, 800-160MG (Oral Tablet) 1 Tablet [...] 0 Ordered:03-Dec-2015 Aylin Sierra CNP Start : 25-Oct-2015 End : 24-Nov-2015 Inactive BUSPAR, 10MG (Oral Tablet) 1 qid (10 MG) Inactive CARAFATE, 1GM (Oral Tablet) 1 (one) Tablet daily for 30 days Refills: 0 Ordered:03-Dec-2015 Aylin Sierra CNP Start : 25-Oct-2015 End : 24-Nov-2015 Inactive [...] MG) End : 30-Sep-2012 Inactive Comments:d/c per [facility] Delsym Cough/Cold Daytime 2-24-416-325 MG/10ML Oral Liquid 5 Milliliter Milliliter q6 hr prn cough for 0 days Quantity: 200 {Milliliter} Refills: 0 Ordered:02-Jul-2017 Karen Bowie LPN Start : 20-May-2017 End : 02-Jul-2017 Inactive DIFLUCAN, 150MG (Oral Tablet) 1 (one) Tablet x1 repeat in 4days for 0 days Quantity: 2 {Tablet} Refills: 0 Ordered:05-Sep-2015 HOME Byrne Start : 14-Aug-2015 End [...] 03-Feb-2013 End : 20-Nov-2013 Inactive Comments:Lazara Pradhan PROTOTYPE CARPENTER at [facility] LORATADINE, 10MG (Oral Tablet) 1 qd (10 [...] days Quantity: 30 {Capsule} Refills: 0 Ordered:11-Mar-2016 Rigo RGANT Antonella Start : 05-Feb-2016 End : 06-Mar-2016 Inactive [...] 30 {Tablet} Refills: 3 Ordered:14-Jun-2014 Rosa Isela Sweet MD Start : 14-Jun-2014 End : 14-Jun-2014 Inactive NASONEX, 50MCG/ACT (Nasal Suspension) 1 Tullos(s) each nostril daily for 0 days Quantity: 1 {Suspension} Refills: 0 Ordered:17-Oct-2012 HOME Byrne Start : 26-Nov-2011 End : 17-Oct-2012 Inactive Jouekevy-Bcbemchjc-NN 1 % Otic Solution 1 (one) Metric [...] days Quantity: 6 {Tablet} Refills: 0 Ordered:04-Mar-2012 Rigo GRANT Antonella Start : 04-Mar-2012 End : 06-Mar-2012 Inactive Sorbitol 70 % Oral Solution 30 ml two times daily for 30 days Quantity: 1 {QS} Refills: 0 Ordered:11-Mar-2016 Rigo GRANT Aylin Lucas Start : 05-Feb-2016 End : 06-Mar-2016 Inactive TiZANidine HCl 4 MG Oral Capsule 1 (one) Capsule Capsule bid prn if drowsy only take qhs for 0 days Quantity: 20 {Capsule} Refills: 0 Ordered:27-Apr-2018 Karen Bowie LPN Start : 24-Nov-2017 End : 27-Apr-2018 Inactive TiZANidine HCl 4 MG Oral Tablet 1 (one) Tablet bid for 7 days Quantity: 14 {Tablet} Refills: 0 Ordered:14-Apr-2018 Yany Nichols DO, DO, Kathleen Start : 14-Apr-2018 End : 21-Apr-2018 Inactive Topicort 0.25 % External Cream 1 [...] daily for 30 days Refills: 0 Ordered:03-Dec-2015 Angelinaoneydacrystal GRANTAylin Start : 18-Oct-2015 End : 17-Nov-2015 Inactive [...] 30 {Tablet} Refills: 3 Ordered:21-Feb-2014 Rosa Isela Sweet MD Start : 21-Feb-2014 End : 21-Feb-2014 Discontinued Comments:re started per [facility] 09-30-12 AUGMENTIN, 875-125MG (Oral Tablet) 1 [...] 30 {Tablet} Refills: 5 Ordered:26-Feb-2015 Rosa Isela Sweet MD Start : 26-Feb-2015 End : 26-Feb-2015 [...] seen a surgeon Dr. Sinan Stark in [place] Status: Inactive as of 28-Dec-2016 Allergic rhinitis [...] WNL, well woman Dr. Victoria , BD , mini mental=28/30, last eye exam September 2015 [...] what PT then may need to see lina Status: Inactive as of 29-Mar-2015 Cough (R05, 786.2) Status: Inactive as of 29-Sep-2017 DEMENTIA, VASCULAR UNCOMPLICATED (290.40) Mar-2011 Comments: stable saw Dr. reyna harris. he took off aricept because no signs and symptoms of demenitia. told problem is registrationDr. Minnieis, insurance refuse pay nueropsych testing. Status: Inactive [...] scan good. Status: Inactive as of 17-Oct-2012 Fever and chills (R50.9, 780.60) Status: Resolved as of 27-Apr-2018 Headache (R51, 784.0) Comments: secondary to concussion [...] as of 05-Jan-2018 Rash (R21, 782.1) Comments: if no better after steriod consider treating for mite?( scabies) Status: Inactive as of 28-Dec-2016 Rash (R21, 782.1) Comments: appears scalded milk like appearance under breasts now, off some meds Status: Inactive as of 05-Sep-2015 RSV (acute bronchiolitis due to respiratory syncytial [...] and strong Status: Inactive as of 14-Jan-2012 Wrist pain, left (M25.532, 719.43) Status: Resolved as of 27-Apr-2018 WWV V73.21 Comments: had colonscopy 2003, -. saw Dr. victoria - pap good. talk bout shingles vaccine. talkabout how get done. Status: Inactive as of 29-Mar-2015 Yeast dermatitis (B37.2, 112.3) Status: Inactive as of 30-Sep-2015 Procedures Procedure Dates Details BIlateral hip replacements Completed Comments: Dr. King Thyroidectomy; Total Completed Comments: parathyroidectomy with removal of right inferior gland 05-16-15 Dr. Sinan Stark Umbilical hernia repair Completed Comments: x2 Date Value Details 31-Oct-2018 PT D/C Summary (1) Result: Comments: See Note; NOTES: [facility] Physical Therapy [facility] 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 Goal Progress: Goal Met Goal 5:: Pt will be independent with HEP to sustain gains made in the clinic. Goal Progress: Goal Met - Plan Plan: D/C - D/C Information Dischar Comments: MAY TRY MASSAGE ON OWN If there are questions or concerns regarding this patient's physical therapy, please feel free to call me at [phone]. Thank you for the referral of this patient. Sincerely, Samy Johnson PT, <Electronically signed by Samy Johnson PT, Cert. T, [facility]> 03/16/18 0954 CC: Octavia Nichols DO VEDA Signed 03-Mar-2018 Operative Report - Endoscopy Result: Comments: See Note; NOTES: [facility] Medical Records Department [address] [place] [address] Operative Report - Endoscopy MR#: [id number] Acct: [id number] Name: Demar MCKAY Rep #: [id number] : 1945 73 From: Cruz Montero MD PCP: Octavia Nichols DO Status: [facility] Patient Name: Joseluis Mckay [...] for surveillance. Procedure Code(s): --- Professional --- 52088, Colonoscopy, flexible; diagnostic, including collection of specimen(s) by brushing or washing, when performed (separate procedure) 38403, 59, Moderate sedation services provided by the same physician or other qualified health child care education coordinator performing the diagnostic or therapeutic service that [...] congenital malformations of intestine CPT copyright 2017 [employer]. All rights reserved. The codes documented in this report are preliminary and upon sanitation inspector review may be revised to meet current compliance requirements. Romeo Montero MD 03/03/2018 11:33:51 AM This report has been signed electronically. Number of Addenda: 0 Note Initiated On: 03/03/2018 11:00 AM 03/03/18 1134 Date Cruz Montero MD [facility] Signature: Date (if indicated) CC: Octavia Nichols DO; Cruz Montero MD Date Dictated: 03/03/18 1100 Date Transcribed: Flatwork Presser: RDC Signed 03-Mar-2018 History and Physical Exam Result: Comments: See Note; NOTES: [facility] Medical Records Department [address] [place] [address] History and Physical 03/03/18 1055 MR#: [id number] Acct: [id number] Name: JOSELUIS CRAFT Rep #: [id number] : 1945 73 From: Cruz Montero MD PCP: Octavia Nichols DO Status: [facility] Y Location: [place] [address]- Problem List (1) Personal history of colonic [...] PT (1) Result: Comments: See Note; NOTES: [facility] Physical Therapy [facility] [address] [place] [address] Fax [facility] MR#: [id number] Acct: [id number] Name: JOSELUIS MCKAY Rep #: [id number] : 1945 73 From: Samy Johnson PT, Cert. 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 [...] do not hesitate to contact me at [phone] by phone or if you have questions or concerns regarding this new plan of care! Sincerely, Samy Johnson PT, <Electronically signed by Samy Johnson PT, Cert. T, OCS> 02/23/18 1445 CC: Gricel Nichols DO VEDA Signed For Medicare only, by signing this I certify the plan of care. Physicians Signature Date 24-Jan-2018 Re-Evaluation - PT (1) Result: Comments: See Note; NOTES: [facility] Therapy [facility] [address] [facility] [address] [place] [address] Fax [facility]EEVALUATION / [facility] MR#: [id number] Acct: [id number] Name: JOSELUIS MCKAY Rep #: [id number] : 1945 73 From: Samy Johnson PT, Cert. 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 [...] do not hesitate to contact me at [phone] by phone or if you have questions or concerns regarding thi s new plan of care! Sincerely, Samy Johnson PT, <Electronically signed by Samy Johnson PT, Cert. MDT, OCS> 01/24/18 7149 CC: Octavia Nichols DO JLA Signed For Medicare only, by signing this I certify the plan of care. Physicians Signature Date 13-Jan-2018 Emergency Department Summary Result: Comments: See Note; NOTES: [facility] Medical Records Department [address] [place] [address] Emergency Department Summary 01/13/18 2142 MR#: [id number] Acct: [id number] Name: JOSELUIS MCKAY Rep #: [id number] : 1945 73 From: Susie Maki DO PCP: Octavia Nichols DO Status: REG ER - ER Visit Summary Date of Service: 01/13/18 Chief Complaint: [Addendum to andrewa l dictation] History of Present Illness: The [...] triquetral fracture] This note was generated with A[employer] 3D Inspectionation software. It may contain incorrect words, spelling, and punctuation that were not noted in review of the chart prior to signing ED Disposition - Plan for ED Patient: Terrell hief Complaint: Upper Extremity Injury Instructions: ED Sprain Wrist Referrals: Octavia Nichols DO [Primary Care Provider] - Jeronimo Melo MD [STAFF PHYSICIAN] - 3-5 Days What to do if you have Pro blems For any increased pain, shortness of breath, bleeding, nausea or vomiting, chest pain, or any unexpected problems, contact your Primary Care Provider. Call [facility] ([phone]) or repo rt to the closest Emergency Room. Call 911 if necessary. 01/13/182143 <Electronically signed by Susie Maki DO> Date Susie Maki DO Cosigner Signature (If Indicated): Date CC: Octavia Nichols DO 13-Jan-2018 Discharge Instruction Result: Comments: See Note; NOTES: [facility] Medical Records Department [address] [place] [address] Discharge Instruction 01/13/182131 MR#: [id number] Acct: [id number] Name: ISAURABRIANNA JOSELUIS HENSLEY Rep #: [id number] : 1945 73 From: Susie Maki DO [...] your Primary Care Provider. Call [facility] ([phone]) or report to the closest Emergency Room. Call 911 if nec essary. 01/13/182132 <Electronically signed by Susie Maki DO> Date Susie Maki DO Cosigner Signature (If Indicated): Date ____ CC: Octavia Nichols DO 13-Jan-2018 Emergency Department Summary Result: Comments: See Note; NOTES: [facility] Medical Records Department [address] [place] [address] Emergency Department Summary 01/13/18 2129 MR#: [id number] Acct: [id number] Name: JOSELUIS MCKAY Rep #: [id number] : 1945 73 From: Susie Maki DO [...] wrist sprain] This note was generated with Factery dictation software. It may contain incorrect words, [...] your Primary Care Provider. Call [facility] ([phone]) or report to the closest Emergen cy Room. Call 911 if necessary. 01/13/182 <Electronically signed by Susie Maki DO> Date Susie Maki DO Cosigner Signature (If Indicated): Date CC: Octavia Nichols DO 13-Jan-2018 Wrist min 3 Views Result: Comments: See Note; NOTES: [facility] Imaging Services [address] [place] [address] Wrist min 3 Views MR#: [id number] Acct: [id number] Name: JOSELUIS MCKAY Rep #: [id number] : 1945 F 73 From: Jonny Sandy MD PCP: Octavia Nichols DO Status: PRE ER Study: Wrist min 3 Views Date of Exam: 01/13/18 Exam# [id number] Ordering Dr: Provider, Ed P. STUDY: X-RAY [...] CC: ED PHYSICIAN PROVIDER; Octavia Nichols DO Flatwork Presser: Signed 12-Jan-2018 Wrist min 3 Views Result: Comments: See Note; NOTES: [facility] Imaging Services [address] [place] [address] Wrist min 3 Views MR#: [id number] Acct: [id number] Name: JOSELUIS MCKAY Rep #: [id number] : 1945 F 73 From: Suleman Chan MD PCP: Octavia Nichols DO Status: REG CLI Study: Wrist min 3 Views Date of Exam: 01/12/18 Exam# [id number] Ordering Dr: Aylin Sierra STUDY: X-RAY - [...] Suleman Chan MD at 11:10 EDT Tel [phone], Service support , CC: Aylin Sierra PROTOTYPE CARPENTER; Octavia Nichols DO Flatwork Presser: Signed 24-Dec-2017 Re-Evaluation - PT (1) Result: Comments: See Note; NOTES: [facility] Physical Therapy [address] [place] [address] Fax [facility] MR#: [id number] Acct: [id number] Name: JOSELUIS MCKAY Rep #: [id number] : 1945 72 From: Samy Johnson PT, Cert. MDT, OCS Referring DrSandoval: Octavia Nichols DO St atus: REG RCR Insurance: [employer]ICARE [...] will report ability to retu rn to customer solutions teammate such as mowing and vacuuming without limitation. [...] do not hesitate to contact me at [phone] by phone or if you have questions or concerns regarding this new plan of care! Sincerely, Samy Johnson, PT, <[facility] signed by Samy Johnson PT, Cert. MDT, [facility]> 12/24/17 1629 CC: Octavia Nichols DO VEDA Signed For Medicare only, by signing this I certify the plan of care. Physicians Signature Date 10-Dec-2017 DIAG MAMM W/CAD, BILAT Result: Comments: See Note; NOTES: [facility] Imaging Services [address] [place] [address] DIAG MAMM W/CAD, BILAT MR#: [id number] Acct: [id number] Name: JOSELUIS MCKAY Rep #: [id number] : 1945 F 72 From: Jonny Lovelace MD PCP: Octavia Nichols DO Status: REG CLI Study: DIAG MAMM W/CAD, BILAT Date of Exam: 12/10/17 Exam# [id number] Ordering Dr: Karen Gandhi PROTOTYPE CARPENTERTiffany MAMMO GRAPHY - BILATERAL SCREENING REASON FOR [...] delay biopsy of a clinically suspicious abnormality. [id number] Electronically Signed: Kamar Lovelace MD at 14:52 EDT , Serv ice support , CC: GEETA Gandhi; Octavia Nichols DO Flatwork Presser: Signed 25-Nov-2017 Inital Evaluation (1) - PT Result: Comments: See Note; NOTES: [facility] [address] [place] [address]. [address] [place] [address] Fax REHABILITATION SERVICES INITIAL EVALUATION MR#: [id number] Acct: [id number] Name: JOSELUIS MCKAY Rep #: [id number] : 1945 72 From: Samy Johnson PT, Cert. 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 [...] to be FAXED BACK to us at [phone] for Medicare purposes. Please let me know if there are questions or concerns regarding this plan of care. Physician Signature: Date:__ <Electronically signed by Samy Johnson PT, Cert. T, OCS> 11/25/17 3714 CC: Octavia Nichols DO VEDA Signed For Medicare only, by signing th is I certify the plan of care. Physicians Signature Date 21-Nov-2017 Emergency Department Summary Result: Comments: See Note; NOTES: [facility] Medical Records Department [address] [place] [address] Emergency Department Summary 11/21/17 1125 MR#: [id number] Acct: [id number] Name: JOSELUIS MCKAY Rep #: [id number] : 1945 72 From: Bernadine Vargas MD [...] neck strain This note was generated with Factery dictation software. It may contain incorrect words, [...] problems, contact your Primary Care Provider. Call [facility] ([phone]) or report to the closest Emergency Room. Call 911 if necessa ry. 11/21/17 4106 <Electronically signed by Bernadine Vargas MD> Date Bernadine Vargas MD Cosigner Signature (If Indicated): Date CC: Octaviaeros Nichols DO 21-Nov-2017 Discharge Instruction Result: Comments: See Note; NOTES: [facility] Medical Records Department [address] [place] [address] Discharge Instruction 11/21/17 1222 MR#: [id number] Acct: [id number] Name: JOSELUIS HURLEY Rep #: [id number] : 1945 72 From: Bernadine Vargas MD [...] your Primary Care Provider. Call [facility] ([phone]) or report to the closest Emergency Room. Call 911 if necessary. 1223 <Electronically signed by Bernadine Vargas MD> Date Bernadine Vargas MD Cosigner Signature (If Indicated): Date _ CC: Octavia Nichols DO 21-Nov-2017 Brain/Head without Contrast Result: Comments: See Note; NOTES: [facility] Imaging Services [address] [place] [address] Brain/Head without Contrast MR#: [id number] Acct: [id number] Name: JOSELUIS MCKAY p #: [id number] : 1945 F 72 From: Trish Moser MD PCP: Octavia Nichols DO Status: REG ER Study: Brain/Head without Contrast Date of Exam: 11/21/17 Exam# [id number] Ordering Dr: Bernadine Vargas MD STUDY: CT [...] CC: Bernadine Vargas MD; Octavia Nichols DO Flatwork Presser: Signed 21-Nov-2017 Spine Cervical without Contras Result: Comments: See Note; NOTES: [facility] Imaging Services [address] [place] [address] Spine Cervical without Contras MR#: [id number] Acct: [id number] Name: JOSELUIS MCKAY Rep #: [id number] : 1945 F 72 From: Trish Moser MD PCP: Octavia Nichols DO Status: REG ER Study: Spine Cervical without Contras Date of Exam: 11/21/17 Exam# [id number] Ordering Dr: Uzair Vargas MD STUDY: CT [...] at 11:57 EDT Tel , Service support [phone], CC: Bernadine Vargas MD; Octavia Nichols DO Flatwork Presser: Signed 27-Aug-2017 Chest PA and Lateral Result: Comments: See Note; NOTES: [facility] Imaging Services [address] [place] [address] Chest PA and Lateral MR#: [id number] Acct: [id number] Name: JOSELUIS MCKAY Rep #: [id number] : 1945 F 72 From: Katie Hopkins MD PCP: Octavia Nichols DO Status: REG CLI Study: Chest PA and Lateral Date of Exam: 08/27/17 Exam# [id number] Ordering Dr: Octavia Nichols DO XR Chest [...] ervice support , CC: Octavia Nichols DO Flatwork Presser: Signed 02-Aug-2017 12 Lead Electrocardiogram Result: Comments: See Note; NOTES: [facility] Cardiovascular Services [address] [place] [address] 12 Lead EKG 07/28/17 1143 MR#: [id number] Acct: [id number] Name: JOSELUIS MCKAY Rep #: [id number] : 1945 72 From: Haseeb Tinoco MD [...] normal ECG Confirmed by HASEEB TINOCO ([id number]), scientific editor KATIE MELO ([id number]) on 08/02/2017 2:06:31 PM Referred By: Octavia Nichols Confirmed By:HASEEB TINOCO 08/02/17 1406 Date Haseeb Tinoco MD CC: Octavia Nichols DO; Kristian Sauceda MD Signed 28-Jul-2017 Emergency Department Summary Result: Comments: See Note; NOTES: [facility] Medical Records Department [address] [place] [address] Emergency Department Summary 07/28/17 1214 MR#: [id number] Acct: [id number] Name: JOSELUIS MCKAY Rep #: [id number] : 1945 72 From: Kristian Sauceda MD [...] sensation to light touch throughout. N ormal fuepry-tyga-ttepat and owxm-ivbl-uxqm bilaterally. Normal gait. General: A AND O [...] should she be sent over to the [facility]. She will be discharged to there. Disposition: To home in improved and stable condition. Impression: 1. Transient visual changes. This note was generated with Factery dictation software. It may contain i ncorrect words, [...] your Primary Care Provider. Call [facility] ([phone]) or report to the closest Emergency Room. Call 911 if necessary. 07/28/17 1711 & #60;Electronically signed by Kristian Sauceda MD> Date Kristian Sauceda MD Cosigner Signature (If Indicated): Date CC: Octavia Nichols 28-Jul-2017 Brain/Head without Contrast Result: Comments: See Note; NOTES: [facility] Imaging Services [address] [place] [address] Brain/Head without Contrast MR#: [id number] Acct: [id number] Name: JOSELUIS MCKAY Re p #: [id number] : 1945 F 72 From: Suleman Chan MD PCP: Octavia Nichols DO Status: REG ER Study: Brain/Head without Contrast Date of Exam: 07/28/17 Exam# [id number] Ordering Dr: Sa milan Sauceda MD STUDY: [...] Suleman Chan MD at 11:36 EDT Tel [phone], Service support , CC: Octavia Nichols DO; Kristian Sauceda MD Flatwork Presser: Signed 22-Jul-2017 Echocardiogram Complete Result: Comments: See Note; NOTES: [facility] Cardiovascular Services [address] [place] [address] Echo Complete 07/22/17 0855 MR#: [id number] Acct: [id number] Name: MARY MCKAY RA Rep #: [id number] : 1945 72 From: Haseeb Tinoco MD Attending Dr: Octavia Nichols DO Status: REG CLI Ordering Dr: Octavia Nichols DO Date: 07/22/17 Location: [facility] Sex: F C Admitted: Shwetha son For Study: Murmur Procedure This was [...] Dictated: 07/22/17 0855 Date Transcribed: 07/22/17 1510 Flatwork Presser: Signed 14-Jul-2017 Carotid Duplex Ultrasound Result: Comments: See Note; NOTES: [facility] Cardiovascular Services [address] [place] [address] Carotid Duplex Ultrasound 07/13/17918 MR#: [id number] Acct: [id number] Name: JOSELUIS YADAV Rep #: [id number] : 1945 72 From: Finesse Barrios MD Attending Dr: Otcavia Nichols DO Status: REG CLI Ordering Dr: Octavia Nichols DO Date: 07/13/17 Location: [facility] Sex: F C Admitt ed: Reason For [...] the left vertebral artery. Procedure Carotid Duplex 03732. The exam was diagnostic. Exam performed in department. Interpretation Summary Moderate (50-69%) stenosis right extracranial internal carotid. No significant atherosclerotic plaque or stenosis noted in the left internal carotid artery. Flow within the vertebral arteries is antegrade bilaterally. Ordering Physician: Octavia Nichols Performed By: Chilango Caballero RVT 07/14/172027 Date Finesse Barrios MD CC: Octavia Nichols DO Date Dictated: 07/13/17918 Date Transcribed: 07/14/172027 Flatwork Presser: Signed 12-Jan-2017 Operative Report Result: Comments: See Note; NOTES: [facility] Medical Records Department [address] [place] [address] Operative Report 01/12/17 1150 MR#: [id number] Acct: [id number] Name: Demar MCKAY Edmund Rep #: [id number] : 1945 72 From: Cruz Montero MD PCP: Octavia Nichols DO Status: REG CLI Y Location: [place] [address] Report of Operation Date of Procedure: 01/12/17 [...] clip was placed at the base for ondina moratayakristopher. Photographs were obtained. The polyp was retrieved. [...] Department Summary Result: Comments: See Note; NOTES: [facility] Medical Records Department [address] [place] [address] Emergency Department Summary 01/05/17 1846 MR#: [id number] Acct: [id number] Name: JOSELUIS MCKAY Rep #: [id number] : 1945 71 From: Haseeb Hyatt DO [...] hip because she had a hip replacement [address] King.] Physical Examination: [Afebrile vital [...] Primary Ca re Provider. Call [facility] ([phone]) or report to the closest Emergency Room. Call 911 if necessary. 01/05/17 4132 <Electronically signed by Haseeb Hyatt DO> Date ____ Haseeb Hyatt DO Cosigner Signature (If Indicated): Date CC: Octavia Nichols DO 05-Jan-2017 SCREENING MAMM (CAD), BILAT Result: Comments: See Note; NOTES: [facility] Imaging Services [address] [place] [address] SCREENING MAMM (CAD), BILAT MR#: [id number] Acct: [id number] Name: JOSELUIS MCKAY p #: [id number] : 1945 F 71 From: Jose Armas MD PCP: Octavia Nichols DO Status: REG CLI Study: SCREENING MAMM (CAD), BILAT Date of Exam: 01/05/17 Exam# [id number] Ordering Dr: Evan iNchols DO MAMMOGRAPHY - BILATERAL SCREENING REASON FOR EXAM: Female, 71 years old. Routine annual screening examination. PERTINENT HISTORY: NO FM HX, RT STEREO BX 2012, LT KERATOSIS MARKED TECHNIQUE: Di gital bilateral [...] delay biopsy of a clinically suspicious abnormality. [id number] Electronically Signed: Jose Armas MD at 14:49 EDT Tel , Service support , CC: Octavia Nichols DO Flatwork Presser: Signed 02-Dec-2016 Ankle min 3 Views Result: Comments: See Note; NOTES: [facility] Imaging Services [address] [place] [address] Verdana 4d Ankle min 3 Views MR#: [id number] Acct: [id number] Name: JOSELUIS MCKAY ep #: [id number] : 1945 F 71 From: Jose Reno MD PCP: Octavia Nichols DO Status: REG CLI Study: Ankle min 3 Views Date of Exam: 12/02/16 Exam# [id number] Ordering Dr: Aylin Sierra STUDY: X-R AY [...] , CC: Aylin Sierra; Octavia Nichols DO Flatwork Presser: Signed 08-Jun-2016 Hand Min 3 Views Result: Comments: See Note; NOTES: [facility] Imaging Services [address] [place] [address] Verdana 4d Hand Min 3 Views MR#: [id number] Acct: [id number] Name: JOSELUIS MCKAY Jazmyne p #: [id number] : 1945 F 71 From: Suleman Chan MD PCP: Octavia Nichols DO Status: REG CLI Study: Hand Min 3 Views Date of Exam: 06/08/16 Exam# [id number] Ordering Dr: Octavia Nichols DO STUDY: X-RAY [...] Suleman Chan MD at 14:44 EST Tel [phone], Service support [phone], CC: Octavia Nichols DO Flatwork Presser: Signed 20-Apr-2016 Elbow min 3 Views Result: Comments: See Note; NOTES: [facility] Imaging Services [address] [place] [address] Verdana 4d Elbow min 3 Views MR#: [id number] Acct: [id number] Name: JOSELUIS MCKAY Romeo ep #: [id number] : 1945 F 71 From: Gabo Brito MD PCP: Octavia Nichols DO Status: REG CLI Study: Elbow min 3 Views Date of Exam: 04/20/16 Exam# [id number] Ordering Dr: Octavia Nichols DO STUDY: X-RAY [...] MD at 23:25 EST , Service support [phone], CC: Octavia Nichols DO Flatwork Presser: Signed 20-Apr-2016 Humerus min 2 Views Result: Comments: See Note; NOTES: [facility] Imaging Services [address] [place] [address] Verdana 4d Humerus min 2 Views MR#: [id number] Acct: [id number] Name: JOSELUIS MCKAY Rep #: [id number] : 1945 F 71 From: Gabo Brito MD PCP: Octavia Nichols DO Status: REG CLI Study: Humerus min 2 Views Date of Exam: 04/20/16 Exam# [id number] Ordering Dr: Octavia Nichols DO STUDY: X-RAY - RIGHT HUMERUS REASON [...] MD at 23:28 EST , Service support [phone], Fax CC: Octavia Nichols DO Flatwork Presser: Signed 27-Jan-2016 12 Lead Electrocardiogram Result: Comments: See Note; NOTES: [facility] Cardiovascular Services [address] [place] [address] 12 Lead EKG 01/24/16 160 MR#: [id number] Acct: [id number] Name: JAKE MCKAY Rep #: [id number] : 1945 71 From: Sebastian Valenzuela MD [...] Norm al ECG Confirmed by TARAH FLORES, SEBATSIAN ([id number]), scientific editor KATIE MELO ([id number]) on 01/27/2016 1:21:19 PM Referred By: Confirmed By:SEBASTIAN VALENZUELA MD 01/27/16 1321 Date ____ Sebastian Valenzuela MD CC: Aylin Sierra Date Dictated: 01/24/16 160 Date Transcribed: 01/24/16 160 Flatwork Presser: Signed 27-Jan-2016 Emergency Department Summary Result: Comments: See Note; NOTES: [facility] Medical Records Department [address] [place] [address] Emergency Department Summary MR#: [id number] Acct: [id number] Name: JOSELUIS MCKAY Rep #: [id number] : 1945 71 From: Kristian Sauceda MD [...] Sauceda MD C C: Aylin Sierra T: [facility] JOB: [id number] 01/27/16 0044 <Electronically signed by Kristian Sauceda MD> Date Kristian Sauceda MD Cosigner Signature (If Indicated): Date CC: Aylin Angelinabeth Date Dictated: 01/24/161613 Date Transcribed: 01/24/161613 Flatwork Presser: Signed 03-Jan-2016 Brain/Head without Contrast Result: Comments: See Note; NOTES: [facility] Imaging Services [address] [place] [address] Verdana 4d Brain/Head without Contrast MR#: [id number] Acct: [id number] Name: JOSELUIS MCKAY Rep #: [id number] : 1945 F 70 From: Suleman Chan MD PCP: Aylin Sierra Status: REG CLI Study: Brain/Head without Contrast Date of Exam: 01/03/16 Exam# [id number] Ordering Dr: Aylin Sierra STUDY: CT BRAIN [...] Suleman Chan MD at 11:16 EDT Tel [phone], Service support [phone], Fax CC: Aylin Sierra Flatwork Presser: Signed 19-Oct-2015 Emergency Department Summary Result: Comments: See Note; NOTES: [facility] Medical Records Department [address] [place] [address] Emergency Department Summary MR#: [id number] Acct: [id number] Name: JOSELUIS MCKAY Rep #: [id number] : 1945 70 From: Rogelio Marcial MD [...] was apparently at Dr. Munoz's office, a transcription typist here. She accordingly got turned out for [...] the patient may be overmedicated as well. Trinway scale was negative and they did say [...] at 3 a.m. Acc ording to the transcription typist, her blood pressure were reportedly low, but [...] time. No facial droop. N o abnormal pdkejp-gs-coyc. She has normal klbu-wo-ukbq, no drift. Negative Babinski. She does appear [...] Terrell Coley C: Rosa Isela Sierra T: [facility] JOB: [id number] 10/19/15 2306 &am p;#60;Electronically signed by Rogelio Marcial MD> Date Rogelio Marcial MD Cosigner Signature (If Indicated): Date CC: Aylin Sierra; Rosa Isela Sweet MD Date Dictated: 10/17/151707 Date Transcribed: 10/17/151707 Flatwork Presser: Signed 19-Oct-2015 Emergency Department Summary Result: Comments: See Note; NOTES: [facility] Medical Records Department [address] [place] [address] Emergency Department Summary MR#: [id number] Acct: [id number] Name: JOSELUIS MCKAY Rep #: [id number] : 1945 70 From: Mna Salamanca MD PCP: Aylin Sierra Status: DEP ER DATE OF SERVICE: 10/19/2015 CHIEF COMPLAINT: Fall. HISTORY OF PRESENT ILLNESS : A 70-year-old female who slipped on some salt on the floor at [facility], injuring her head. She is right hand [...] Tejada C: Aylin Sierra T: [facility] JOB: [id number] 10/19/15 1838 <Electronically signed by Man Salamanca MD> Date Man Salamanca MD Cosigner Signature (If Indicated): Date CC: Aylin Sierra Date Dictated: 10/19/15 144 Date Transcribed: 10/19/151441 Flatwork Presser: Signed 19-Oct-2015 Discharge Instruction Result: Comments: See Note; NOTES: [facility] Medical Records Department [address] [place] [address] Discharge Instruction 10/19/151442 MR#: [id number] Acct: [id number] Name: JOSELUIS MCKAY Rep #: [id number] : 1945 70 From: Man Salamanca MD [...] any unexpected problems, contact your doctor. Call [facility] ([phone]) or report to the closest Emergency Room. Call 911 if necessary. 10/19/15 1443 <Electronically signed by Man Salamanca MD> Date Man Salamanca MD Cosigner Signature (If Indicated): Date CC: Aylin Sierra 19-Oct-2015 Brain/Head without Contrast Result: Comments: See Note; NOTES: [facility] Imaging Services [address] [place] [address] Verdana 4d Brain/Head without Contrast MR#: [id number] Acct: [id number] Name: JOSELUIS MCKAY Rep #: [id number] : 1945 F 70 From: Noé Carr MD PCP: Aylin Sierra Status: REG ER Study: Brain/Head without Contrast Date of Exam: 10/19/15 Exam# [id number] Ordering Dr: Man Salamanca MD STUDY: CT [...] Carr MD at 13:03 EDT Tel [phone], Service support [phone], CC: Aylin Sierra; MAN SALAMANCA MD Flatwork Presser: Signed 17-Oct-2015 Discharge Instruction Result: Comments: See Note; NOTES: [facility] Medical Records Department [address] [place] [address] Discharge Instruction 10/17/15 1652 MR#: [id number] Acct: [id number] Name: ANGAYDENJOSELUIS S Rep #: [id number] : 1945 70 From: Rogelio Marcial MD [...] problems, contact your doctor. Call [facility] ([phone]) or report to the closest Emergency Room. Call 911 if necessary. 10/17/15 1276 <Electronically signed by Rogelio Marcial MD> Date Rogelio Marcial MD Cosigner Signature (If Indicated): Date CC: Aylin Sierra 17-Oct-2015 Brain/Head without Contrast Result: Comments: See Note; NOTES: [facility] Imaging Services [address] [place] [address] Verdana 4d Brain/Head without Contrast MR#: [id number] Acct: [id number] Name: JOSELUIS MCKAY Rep #: [id number] : 1945 F 70 From: Man Garcia MD PCP: Aylin Sierra Status: REG ER Study: Brain/Head without Contrast Date of Exam: 10/17/15 Exam# [id number] Rocío harris Dr: Rogelio Marcial MD STUDY: [...] MD at 16:33 EDT , Service support [phone], CC: Aylin Sierra; Rogelio Marcial MD Flatwork Presser: Signed 17-Oct-2015 Chest PA and Lateral Result: Comments: See Note; NOTES: [facility] Imaging Services [address] [place] [address] Verdana 4d Chest PA and Lateral MR#: [id number] Acct: [id number] Name: ISAURARENAN RAHMANJOSELUIS Rep #: [id number] : 1945 F 70 From: Man Garcia MD PCP: Aylin Sierra Status: REG ER Study: Chest PA and Lateral Date of Exam: 10/17/15 Exam# [id number] Ordering Dr: Allison Marcial MD STUDY: X-RAY [...] upper abdomen. IMPRESSION: Degenerative changes, as described jennifer lucas. No demonstrated acute cardiopulmonary process. Electronically Signed: Man Garcia MD at 16:28 EDT , Service support [phone], ORDER #: [id number] RAD/Chest PA and Lateral IMPRESSION: Degenerative changes, as described above. No demonstrated acute cardiopulmonary process. Electronically Signed: Man Garcia MD at 16:28 EDT , Service support [phone], CC: Aylin Sierra; Rogelio Marcial MD Flatwork Presser: Signed 07-May-2015 EKG ([id number]) Result: [MEASUREMENTS ANALYSIS] Date of Test: 05/07/2015 14:57:34; Heart Rate: 74; VA Interval: 180; QRS: 97; QT Interval: 372; Corrected QT Interval (QTc): 396; P Wave [place]: 66; QRS Wave [place]: -4; T Wave [place]: 40; Blood Pressure: 118/76 [ECG DIAGNOSTIC STATEMENTS] Date of Test: 05/07/2015 14:57:34; Summary: Sinus Rhythm -Left atrial enlargement. - Negative precordial T-waves. BORDERLINE [MEASUREMENTS ANAL YSIS] Date of Test: 05/07/2015 14:57:26; Heart Rate: 73; VA Interval: 184; QRS: 100; QT Interval: 370; Corrected QT Interval (QTc): 392; P Wave [place]: 57; QRS Wave [place]: 6; T Wave [place]: 48; Blood Pressur e: 118/76 [ECG DIAGNOSTIC STATEMENTS] Date of Test: 05/07/2015 14:57:26; Summary: Sinus Rhythm -Left atrial enlargement. - Negative precordial T-waves. BORDERLINE 28-Feb-2015 PT Discharge Summary Result: Comments: See Note; NOTES: [facility] Physical Therapy [facility] [address] [place] [address]. [address] [place], [place] [address] Fax REHABILITATION SE RVICES DISCHARGE SUMMARY MR#: [id number] Acct: [id number] Name: ANGJOSELUIS HENSLEY Rep #: [id number] : 1945 70 From: Samy Johnson Referring Dr.: Samy Rodriguez MD Status: REG RCR Teresa l Date: Discharge Date: DATE OF SERVICE: REFERRING PHYSICIAN: Dr. Samy Rodriguez. This patient by the name of Joseluis Mckay who was born on 1945 [...] referral. Samy Johnson, PT T: NTS JOB: [id number] <Electronically signed by Samy Johnson > 1026 CC: Rosa Isela Sweet MD Signed 26-Feb-2015 EKG ([id number]) Comments: see scanned document of test done to see results reviewed today with patient v Result: [MEASUREMENTS ANALYSIS] Date of Test: 02/26/2015 12:21:51; Heart Rate: 57; VA Interval: 172; QRS: 102; QT Interval: 406; Corrected QT Interval (QTc): 401; P Wave [place]: 34; QRS Wave [place]: -4; T Wave [place] : 26; Blood Pressure: 100/70 [ECG DIAGNOSTIC STATEMENTS] Date of Test: 02/26/2015 12:21:51; Summary: Sinus Bradycardia WITHIN NORMAL LIMITS 31-Jan-2015 Inital Evaluation - PT Result: Comments: See Note; NOTES: [facility] Physical [facility] [address] [place] [address] Fax REHABILITATION SERVICES INITIAL EVALUATION MR#: [id number] Acct: [id number] Name: JOSELUIS MCKAY Rep #: [id number] : 1945 70 From: Samy Johnson Referring [...] 70 y/o female presents to physical th era from low back pain and lateral hip [...] Johnson > 01/31/15 0812 CC: Rosa Isela Sweet MD; Samy Rodriguez MD Signed For Medicare only, by signing this I certify the plan of care. Physicians Signature Date 18-Jan-2015 Parathyroid Scan Result: Comments: See Note; NOTES: [facility] Imaging Services [address] [place] [address] Nuclear Medicine Report MR#: [id number] Acct: [id number] Name: JOSELUIS MCKAY Rep #: [id number] : 1945 F 70 From: Sd Elmore DO PCP: Rosa Isela Sweet MD Status: REG CLI Study: Parathyroid Scan Date of Exam: 01/18/15 Exam# [id number] Ordering Dr: Maxx Mitchell CL INICAL: 70-year-old [...] Sd alford DO at 11:27 EDT Tel [phone], Service support [phone], CC: Rosa Isela Sweet MD; MAXX MITCHELL Flatwork Presser: Signed 07-Dec-2014 Gastric Emptying Study Result: Comments: See Note; NOTES: [facility] Imaging Services [address] [place] [address] Nuclear Medicine Report MR#: [id number] Acct: [id number] Name: JOSELUIS MCKAY Rep #: [id number] : 1945 F 69 From: Sd Elmore DO PCP: Rosa Isela Sweet MD Status: REG CLI Study: Gastric Emptying Study Date of Exam: 12/07/14 Exam# [id number] Ordering Dr: Rosa Isela Sweet MD CLINICAL: 69-year-old female with reported history [...] Sd Elmore DO at 22:08 EDT Tel [phone], Service support [phone], CC: Rsoa Isela Sweet MD Flatwork Presser: Signed 26-Nov-2014 Bilat Scrn Digital AND CAD Result: Comments: See Note; NOTES: [facility] Imaging Services [address] [place] [address] Breast Imaging Report MR#: [id number] Acct: [id number] Name: JOSELUIS MCKAY ep #: [id number] : 1945 F 69 From: Suleman Chan MD PCP: Rosa Isela Sweet MD Status: REG CLI Study: Bilat Scrn Digital AND CAD Date of Exam: 11/26/14 Exam# [id number] Ordering Dr: Rosa Isela Sweet MD MAMMOGRAPHY - BILATERAL SCREENING REASON FOR [...] Suleman Chan MD at 9:19 EDT Tel [phone], Service support [phone], CC: Rosa Isela Sweet MD Flatwork Presser: Signed 26-Nov-2014 Thyroid Result: Comments: See Note; NOTES: [facility] Imaging Services [address] [facility] [place] [address] Ultrasound Report MR#: [id number] Acct: [id number] Name: JOSELUIS MCKAY Rep # : [id number] : 1945 F 69 From: Suleman Chan MD PCP: Rosa Isela Sweet MD Status: REG CLI Study: Thyroid Date of Exam: 11/26/14 Exam# [id number] Ordering Dr: Rosa Isela Sweet MD STUDY: THYR OID ULTRASOUND REASON FOR [...] Chan MD 4 at 14:32 EDT Tel [phone], Service support [phone], CC: Rosa Isela Sweet MD Flatwork Presser: Signed 16-Aug-2014 Abdomen Single View Result: Comments: See Note; NOTES: [facility] Imaging Services [address] [place] [address] Radiology Report MR#: [id number] Acct: [id number] Name: JOSELUIS MCKAY Rep #: [id number] : 1945 F 69 From: Man Garcia MD PCP: Rosa Isela Sweet MD Status: REG CLI Study: Abdomen Single View Date of Exam: 08/16/14 Exam# [id number] Ordering Dr: Jose Rodas MD [facility] DY: X-RAY - ABDOMEN/PELVIS REASON FOR EXAM: [...] MD at 8:36 EDT , Service support [phone], CC: Rosa Isela Sweet MD; Jose Rodas MD Flatwork Presser: Signed 05-Jul-2014 Operative Report Result: Comments: See Note; NOTES: [facility] Medical Records Department [address] [facility] [place] [address] Operative Report MR#: [id number] Acct: [id number] Name: JOSELUIS MCKAY Rep #: [id number] : 1945 69 From: Jose Rodas MD PCP: Rosa Isela Sweet MD Status: [facility] DATE OF SERVICE: 07/04/2014 DATE OF PROCEDURE: [...] skin. Jose Rodas MD T: NTS JOB: [id number] 07/05/14 0726 <Electronically signed by Jose Rodas MD> Date __ Jose Rodas MD CC: Rosa Isela Sweet MD; Jose Rodas MD Date Dictated: 07/04/141106 Date Transcribed: 07/04/141106 Flatwork Presser: Signed 04-Jul-2014 Operative Report Result: Comments: See Note; NOTES: [facility] Medical Records Department [address] [place] [address] Operative Report 07/04/14 110 MR#: [id number] Acct: [id number] Name: JOSELUIS PANDYA Rep #: [id number] : 1945 69 From: Jose Rodas MD PCP: Rosa Isela Sweet MD Status: [facility] Location: [place] [address] Report of Operation Date of Procedure: 07/04/14 Pre-Ope rative Diagnosis: left kidney stone Post-Operative Diagnosis: same Surgery/Procedure Performed:: Left ESWL Type of Anesthesia:: General Anesthesiologist: Omar Graham Specimen's removed: none Drains : none - Admit VTE Documentation VTE Present on Admission: Yes VTE Mechan Device Prophylaxis: Calf SCD-Sequential Compression Device VTE Pharm Prophylaxis ordered?: No Reason prophylaxis not order ed:: Surgical contraindication 07/04/14 1104 <Electronically signed by Jose Rodas MD> Date Jose Rodas MD CC: Rosa Isela Sweet MD; Jose Rodas MD Signed 04-Jul-2014 Discharge Instruction Result: Comments: See Note; NOTES: [facility] Medical Records Department [address] [place] [address] Instructions for Home/Discharge Instructions 07/04/14 1100 MR#: [id number] Acc t: [id number] Name: JOSELUIS MCKAY Rep #: [id number] : 1945 69 From: Jose Rodas MD PCP: Rosa Isela Sweet MD Status: [facility] Discharge Diet: No Restrictions Discharge Activity: R eturn to Normal Activity, May Not Drive - for 2 days., May not drive while taking narcotic pain medications. Return to work on:: 07/09/14 May shower in (days): 1 Additional Activity Instructions:: I f you have any problems call [phone] and ask for your doctor to be [...] Date Jose Rodas MD CC: Rosa Isela Sweet MD 08-Jun-2014 Abdomen/Pelvis without Cont Result: Comments: See Note; NOTES: [facility] Imaging Services [address] [place] [address] CAT Scan Report MR#: [id number] Acct: [id number] Name: JOSELUIS MCKAY Rep #: [id number] : 1945 F 69 From: Escobar Marroquin DO PCP: Rosa Isela Sweet MD Status: REG CLI Study: Abdomen/Pelvis without Cont Date of Exam: 06/08/14 Exam# [id number] Ordering Dr: Jose Rodas MD [facility]: CT ABDOMEN AND PELVIS WITHOUT CONTRAST REASON [...] Escobar Marroquin DO at 9:48 EST Tel [phone], Service support [phone], CC: Rosa Isela Sweet MD; Jose Rodas MD Flatwork Presser: Signed 05-Jun-2014 PT Discharge Summary Result: Comments: See Note; NOTES: [facility] [address] [place] [address] Fax REHABILITATION SERVICES DISCHARGE SUMMARY MR#: [id number] Acct: [id number] Name: JOSELUIS MCKAY Rep #: [id number] : 1945 69 From: Samy Johnson Referring Dr.: Rosa Isela Sweet MD Status: REG RCR Eval Date: Discharge Date: DATE OF SERVICE: REFERRING PHYSICIAN: Dr. Rosa Isela Sweet. This patient by the name Joseluis Mckay [...] transiti on to a [facility] under [facility]. We provided the patient with some exercises, which she can do on her own. At this point, the patient is doing very well. She is discharged from our c are. She improved her quality of gait [...] will resume her exercise here in the [facility]. Otherwise, once again, thank you for this referral. Samy Johnson, PT T: NTS JOB: [id number] <Electronically signed by Samy Johnson > 06/05/14 1530 CC: Signed 31-May-2014 Kidney and Bladder Result: Comments: See Note; NOTES: [facility] Imaging Services [address] [place] [address] Ultrasound Report MR#: [id number] Acct: [id number] Name: JOSELUIS MCKAY Rep #: [id number] : 1945 F 69 From: Jesus Espinoza DO PCP: Rosa Isela Sweet MD Status: REG CLI Study: Kidney and Bladder Date of Exam: 05/31/14 Exam# [id number] Ordering Dr: Jose Rodas MD ST UDY: [...] Mild left hydronephrosis. Electronically Signed: Jesus Espinoza a t 7:44 EST Tel , Service support [phone], CC: Rosa Isela Sweet MD; Jose Rodas MD Flat[place] Presser: Signed 02-May-2014 Inital Evaluation - PT Result: Comments: See Note; NOTES: [facility] Physical Therapy [facility] [address] [place], [place] [address] Fax REHABILITATION SERVICES INITIAL EVALUATION MR#: [id number] Acct: [id number] Name: JOSELUIS MCKAY Rep #: [id number] : 1945 69 From: Samy Johnson Referring Dr.: Rosa Isela Sweet MD Status: REG RCR Insurance : [employer]IC[employer] Eval Date: MEDICAID DATE OF SERVICE: REFERRING PHYSICIAN: Dr. Rosa Isela Sweet. SUBJECTIVE: This patient by the name Joseluis [...] education. Samy Johnson, PT T: VIKY JOB: [id number] <Electronically signed by Samy Johnson > 05/02/14 0838 CC: DD: 05/01 Signed For Medicare only, by signing this I certify the plan of care. Physicians Signature Date 07-Sep-2013 Knee 4 or More Views Result: Comments: See Note; NOTES: [facility] Imaging Services [address] [place] [address] Radiology Report MR#: [id number] Acct: [id number] Name: JOSELUIS MCKAY Rep #: [id number] : 1945 F 68 From: Suleman Chan MD PCP: Rosa Isela Sweet MD Status: REG CLI Study: Knee 4 or More Views Date of Exam: 09/07/13 Exam# [id number] Ordering Dr: Rosa Isela Sweet MD STUDY: X-RAY - RIGHT KNEE REASON [...] Suleman Chan MD at 14:43 EDT Tel [phone], Service support [phone], RAD/Knee 4 or More Views IMPRESSION: Chondrocalcinosis. Small joint effusion. El ectronically Signed: Suleman Chan MD at 14:43 EDT Tel [phone], Service support [phone], CC: Rosa Isela Sweet MD Flat[place] Presser: Signed Family History Unknown Family Member Name Dates Details Father Comments: prostate cancer, dementia, stroke Status: Active Mother Comments: still living glaucoma, hx. shingles in her eye, Type II diabetes Status: Active Social History Name Dates Details Caffeine Use Comments: 1 qd Status: Active Current Work/Study Status: Retired. Comments: lost job 2-11 related to memory. 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. Status: Active Exercise History: Does not exercise. [...] smoker Vital Signs Date Test Result Details :38 Pulse 85 /min Comments: Pattern: Regular Respiration Rate 18 /min Comments: Pattern: Unlabored O2 SAT 93 % Comments: Room air BP Systolic 158 mm[Hg] Comments: Patient Position: Sitting; Cuff Location: Left Arm; Cuff Size: Standard BP Diastolic 88 mm[Hg] Comments: Patient Position: Sitting; Cuff Location: Left Arm; Cuff Size: Standard Weight 169.375 lb Height 61 in Body Mass Index Calculated 32 kg/m2 Body Surface Area Calculated 1.76 m2 :58 Temperature 98.2 f Comments: Method: [...] kg/m2 Body Surface Area Calculated 1.75 m2 36-Moz-524028:25 Pulse 70 /min Comments: Pattern: Regular Respiration [...] kg/m2 Body Surface Area Calculated 1.75 m2 14-Fhj-94243:48 Pulse 92 /min Comments: Pattern: Regular Respiration [...] kg/m2 Body Surface Area Calculated 1.75 m2 :00 Temperature 97.7 f Pulse 83 /min Comments: [...] kg/m2 Body Surface Area Calculated 1.76 m2 :02 Pulse 78 /min Comments: Pattern: Regular Respiration [...] kg/m2 Body Surface Area Calculated 1.72 m2 99-Eex-955863:23 Comments: hearing wnlDr. Midiol and had a [...] kg/m2 Body Surface Area Calculated 1.73 m2 5-Pnm-357957:00 Pulse 65 /min Comments: Pattern: Regular Respiration [...] m2 :22 Comments: pain more at a 68 now Temperature 98.2 f Comments: Method: Temporal [...] not hear, even with Doppler extremely faint [facility] Temperature 98.2 f Comments: Method: Oral Pulse [...] kg/m2 Body Surface Area Calculated 1.66 m2 71-Qrt-926517:40 Temperature 97.6 f Comments: Method: Temporal Pulse [...] 1.68 m2 Results Date Description Value Details 04-Oix-432089:06 Urinalysis, Office (92350) UA - LEUKOCYTE ESTERASE Moderate (Normal) Comments: 70leu/uL UA - NITRITE Negative (Normal) UA - PROTEIN Negative mg/dL (Normal) UA - PH 6.0 (Normal) UA - BLOOD Negative (Normal) UA - SPECIFIC GRAVITY 1.030 (Abnormal) UA - KETONES Negative mg/dL (Normal) UA - BILIRUBIN + (Abnormal) UA - GLUCOSE Negative (Normal) 82-Gmq-007711:17 Bedside Glucose Comments: [facility] [address] [place] [address] BEDSIDE GLU 88 mg/dL (Normal) Range: 70-110 Comments: MANAGEMENT OF PATIENT CARE PER NURSING PROTOCOL 71-Xhb-27059:41 Blood Glucose , Office (54531) Blood Glucose , Office 82 (Normal) 40-Mll-30848:41 HgA1C , Office (96601) HgA1C , Office 5.8 % (Normal) Range: 4.6 - 7.1 76-Hjm-71853:18 Anaerobic & Aerobic Comments: Right breast; PATIENT NOT FASTINGPERFORMED BY: [facility] Dquxfo2618 [facility] [id number] Information: RIGHT BREAST SRC:BR Culture (50636) Result 1 Mixed skin remy (Normal) Aerobic Culture Final report (Normal) Result 1 NANG72 (Normal) Comments: No anaerobic growth in 72 hours. Anaerobic Culture Final report (Normal) 6-Oyy-740566:44 Urinalysis, Complete Comments: Order Date: 11/21/17How was Urine Obtained? [facility] [address]vplre[address], [place], [id number] MUCUS, URINE 0 SEEN {/hpf} (Normal) BACTERIA [...] (Normal) CLARITY Clear (Normal) COLOR Yellow (Normal) :12 HgA1C , Office (01704) HgA1C , Office 5.9 % (Normal) Range: 4.6 - 7.1 :12 Blood Glucose , Office (24049) Blood Glucose , Office 122 (Normal) Comments: not fasting :59 Microscopic Examination Comments: PATIENT WAS FASTINGPERFORMED BY: [facility] Zkekpz9597 [facility] [id number] Bacteria None seen (Normal) Mucus Threads Present (Normal) Epithelial Cells (non renal) 0-10 {/hpf} (Normal) Range: 0 - 10 RBC 0-2 {/hpf} (Normal) Range: 0 - 2 WBC 0-5 {/hpf} (Normal) Range: 0 - 5 78-Zhi-018684:50 Urinalysis, Complete Comments: Order Date: 07/28/17How was Urine Obtained? CLEAN [facility] [address]vxw[address] [place], [id number] MUCUS, URINE 0 SEEN {/hpf} (Normal) BACTERIA [...] (Normal) CLARITY Clear (Normal) COLOR Yellow (Normal) 07-Mth-449663:01 Basic Metabolic Profile (BMP) Comments: [facility] [address] [place], [address] GAP 8 (Normal) Range: 5-15 CO2 30.0 [...] A.D.A. criteria.Please note revised GLUCOSE reference range zouanjvkh30/02/2018. 34-Nfy-689858:01 Bedside Glucose Comments: [facility] [address] [place] [address] BEDSIDE GLU 109 mg/dL (Normal) Range: 70-110 Comments: MANAGEMENT OF PATIENT CARE PER NURSING PROTOCOL 61-Lcl-827564:01 CBC W/Diff, Automated Comments: [facility] [address]ps[address] [place], [place], [id number] Absolute Lymph 1.03 {X10_3/ul} (Normal) Range: 0.83-4.51 [...] 4.2-5.4 WBC 5.6 K/mm3 (Normal) Range: 4.4-11.0 :59 PARATHORMONE (25032) Comments: PATIENT WAS FASTINGPERFORMED BY: [facility] Tttdcg7451 [facility] [id number] PTH, Intact 22 pg/mL (Normal) Range: 15-65 16-Oyg-02373:59 CALCIFIDIOL (50136) VIT D 25 Comments: PATIENT WAS FASTINGPERFORMED BY: [facility] Wbpzce9033 [facility] [place] [place] [id number] Vitamin D, 25-Hydroxy 60.4 ng/mL (Normal) Range: 30.0-100.0 Comments: Vitamin D deficiency has been defined by the [place] ofMedicine and an Endocrine Society practice guideline as alevel of serum 25-OH vitamin D less than 20 ng/mL (1,2).The Endocrine Society went on to further define vitamin Dinsufficiency as a level between 21 and 29 ng/mL (2).1. IOM ([place] of Medicine). 2010. Dietary reference intakes for calcium and D. [place]: The National Academies Press.2. Shelby MF, Sergio EAST, Anatoly MERCER, et al. Evaluation, treatment, and prevention of vitamin D deficiency: an Endocrine Society clinical practice guideline. JCEM. 2010; 96(7):1911-30. :59 TSH (57966) Comments: PATIENT WAS FASTINGPERFORMED BY: [facility] Whruud7688 [facility] [place] [place] [id number] TSH 1.720 {uIU/mL} (Normal) Range: 0.450-4.500 :59 URINALYSIS, W/ MICRO (34084) Comments: PATIENT WAS FASTINGPERFORMED BY: [employer] Gnxece5275 [facility] [place] [place] [id number] Microscopic Examination See below: (Normal) Comments: Microscopic was indicated and was performed. Nitrite, Urine Negative (Normal) Urobilinogen,Semi-Qn 0.2 mg/dL (Normal) Range: 0.2-1.0 Bilirubin Negative (Normal) Occult Blood Negative (Normal) Ketones Negative (Normal) Glucose Negative (Normal) Protein Negative (Normal) WBC Esterase Trace (Abnormal) Appearance Clear (Normal) Urine-Color Yellow (Normal) pH 6.0 (Normal) Range: 5.0-7.5 Specific [place] 1.017 (Normal) Range: 1.005-1.030 :59 MICROALBUMIN: CREATININE RATIO Comments: PATIENT WAS FASTINGPERFORMED BY: LabFindYogi Djocbj3948 [facility] [id number] (49408) AND (25775) Alb/Creat Ratio 8.7 {mg/g_creat} (Normal) Range: 0.0-30.0 Albumin, Urine 6.7 ug/mL (Normal) Creatinine, Urine 76.6 mg/dL (Normal) :59 METABOLIC PANEL, COMPREHENSIVE Comments: PATIENT WAS FASTINGPERFORMED BY: [facility]CoTsaile Health CenterKmgpkz1250 [facility] [id number] (14163) ALT (SGPT) 21 [iU]/L (Normal) Range: 0-32 [...] 8-27 Glucose 93 mg/dL (Normal) Range: 65-99 82-Sbv-99518:59 LIPID PANEL (70339) Comments: PATIENT WAS FASTINGPERFORMED BY: [facility]CoTsaile Health CenterWptkit9910 [facility] [id number] LDL/HDL Ratio 2.3 {ratio} (Normal) Range: 0.0-3.2 Comments: LDL/HDL Ratio Men Women 1/2 Avg.Risk 1.0 1.5 Av g.Risk 3.6 3.2 2X Avg.Risk 6.2 5.0 3X Avg.Risk 8.0 6.1 LDL Cholesterol Calc 126 mg/dL (Abnormal) Range: 0-99 VLDL Cholesterol Tab 16 mg/dL (Normal) Range: 5-40 HDL Cholesterol 56 mg/dL (Normal) Triglycerides 78 mg/dL (Normal) Range: 0-149 Cholesterol, Total 198 mg/dL (Normal) Range: 100-199 90-Pby-12545:59 CBC W/AUTO DIFF WBC (94899) Comments: PATIENT WAS FASTINGPERFORMED BY: CB [facility] Apdajr7057 [facility] [id number]; ov 10/05 Immature Grans (Abs) 0.0 {x10E3/uL} [...] (Normal) Range: 3.4-10.8 :02 HgA1C , Office (47563) HgA1C , Office 5.6 % (Normal) Range: 4.6 - 7.1 :02 Blood Glucose , Office (97934) Blood Glucose , Office 118 (Normal) :38 HgA1C , Office (48517) HgA1C , Office 5.7 % (Normal) Range: 4.6 - 7.1 :38 Blood Glucose , Office (62930) Blood Glucose , Office 90 (Normal) :20 Microscopic Examination Comments: PATIENT WAS FASTINGPERFORMED BY: LabCoHampton Behavioral Health CenterDldcnu0088 [facility] [id number] Bacteria Few (Normal) Mucus Threads Present (Normal) Epithelial Cells (non 0-10 {/hpf} (Normal) Range: 0 - 10 renal) RBC None seen {/hpf} Range: 0 - 2 (Normal) WBC 0-5 {/hpf} (Normal) Range: 0 - 5 : COLON BIOPSY (CHOOSE See Note (Normal) Comments: [facility] Uqtjfwwjsr3582 [facility] [place], [place], [address] 42 SITE) Comments: Patient: JOSELUIS MCKAY : 1945 (72/F) Acct Num: [id number] Phys: Cruz Montero MD Unit Num: [id number] Loc: [facility] Specimen: [id number] Received: 01/12/17 - 1302 Spec Type : COLON BX TISSUES TISSUES: GROSS DESCRIPTION Received in fixative is one container labeled with the patient's name and designated mid sigmoid polyp. The specimen consists of one i rregular fragmentof light harris soft tissue that measures 0.2 x 0.2 x 0.1 cm. The specimen is totally submitted in one cassette. / SJ:zach 01/12/17 TC:5 CPT: 88873 HEADER OPERATION: Colonoscopy P RE-OP DIAGNOSIS: History of polyps TISSUE SUBMITTED: Mid sigmoid polyp MICROSCOPIC DESCRIPTION Slides are reviewed. MICROSCOPIC DIAGNOSIS Mid sigmoid polyp, biopsy: Hyperplastic poly p. AM:rg 01/13/17 Signed Carlos Manuel Monzon 01/13/17 <signature on file> 23-Gly-309497:34 Bedside Glucose Comments: [facility] LaboratoryPoint of [address] [place] [address] BEDSIDE GLU 94 mg/dL (Normal) Range: 70-110 Comments: MANAGEMENT OF PATIENT CARE PER NURSING PROTOCOL 8-Hxj-720305:20 URINALYSIS, W/ MICRO (87016) Comments: PATIENT WAS FASTINGPERFORMED BY: [facility] [id number] Microscopic Examination See below: (Normal) Comments: Microscopic was indicated and was performed. Nitrite, Urine Negative (Normal) Urobilinogen,Semi-Qn 0.2 mg/dL (Normal) Range: 0.2-1.0 Bilirubin Negative (Normal) Occult Blood Negative (Normal) Ketones Negative (Normal) Glucose Negative (Normal) Protein Negative (Normal) WBC Esterase 1+ (Abnormal) Appearance Clear (Normal) Urine-Color Yellow (Normal) pH 6.5 (Normal) Range: 5.0-7.5 Specific [place] 1.008 (Normal) Range: 1.005-1.030 1-Thg-740933:20 MICROALBUMIN: CREATININE RATIO Comments: PATIENT WAS FASTINGPERFORMED BY: [facility]oco [facility] [id number] (13243) AND (37762) Microalb/Creat Ratio 11.5 {mg/g_creat} (Normal) Range: 0.0-30.0 Microalbumin, Urine 3.7 ug/mL (Normal) Creatinine, Urine 32.3 mg/dL (Normal) 0-Bbq-037929:20 METABOLIC PANEL, COMPREHENSIVE Comments: PATIENT WAS FASTINGPERFORMED BY: [facility]SmithvilleTagwhatAtrium [facility] [id number] (61912) ALT (SGPT) 27 [iU]/L (Normal) Range: 0-32 [...] Glucose, Serum 78 mg/dL (Normal) Range: 65-99 5-Exl-671786:20 TSH (01917) Comments: PATIENT WAS FASTINGPERFORMED BY: PredictviaHampton Behavioral Health CenterChhhmu8504 [facility] [id number] TSH 22.910 {uIU/mL} (Abnormal) Range: 0.450-4.500 5-Xln-401147:20 KIDRI-AFTZAZPNGYH-TVITJ (63751) Comments: PATIENT WAS FASTINGPERFORMED BY: PredictviaHampton Behavioral Health CenterPxdzcc4028 [facility] [id number] AFP, Serum, Tumor Marker 1.6 ng/mL (Normal) Range: 0.0-8.3 Comments: Suzanne ECLIA methodology 4-Vdu-715121:20 CALCIFEDIOL (16399) Comments: PATIENT WAS FASTINGPERFORMED BY: DeskwantedHampton Behavioral Health CenterLblgig6556 [facility] [id number] Vitamin D, 25-Hydroxy 47.7 ng/mL (Normal) Range: 30.0-100.0 Comments: Vitamin D deficiency has been defined by the [place] ofMedicine and an Endocrine Society practice guideline as alevel of serum 25-OH vitamin D less than 20 ng/mL (1,2).The Endocrine Society went on to further define vitamin Dinsufficiency as a level between 21 and 29 ng/mL (2).1. IOM ([place] of Medicine). 2010. Dietary reference intakes for calcium and D. [place]: The National Academies Press.2. Shelby MF, Sergio EAST, Anatoly MERCER, et al. Evaluation, treatment, and prevention of vitamin D deficiency: an Endocrine Society clinical practice guideline. JCEM. 2010; 96(7):1911-30. 7-Odz-897770:20 LIPID PANEL (43066) Comments: PATIENT WAS FASTINGPERFORMED BY: LabFindYogiHampton Behavioral Health CenterSbpdom1973 [facility] [id number] LDL/HDL Ratio 2.4 {ratio_units} (Normal) Range: 0.0-3.2 Comments: LDL/HDL Ratio Men Women 1/2 Avg.Risk 1.0 1.5 Av g.Risk 3.6 3.2 2X Avg.Risk 6.2 5.0 3X Avg.Risk 8.0 6.1 LDL Cholesterol Calc 147 mg/dL (Abnormal) Range: 0-99 VLDL Cholesterol Tab 34 mg/dL (Normal) Range: 5-40 HDL Cholesterol 61 mg/dL (Normal) Triglycerides 172 mg/dL (Abnormal) Range: 0-149 Cholesterol, Total 242 mg/dL (Abnormal) Range: 100-199 9-Hpk-961075:20 CBC W/AUTO DIFF WBC (46411) Comments: PATIENT WAS FASTINGPERFORMED BY: LabCoHampton Behavioral Health CenterBbhjst4717 [facility] [id number] Immature Grans (Abs) 0.0 {x10E3/uL} (Normal) Range: [...] (Normal) Range: 3.4-10.8 :06 HgA1C , Office (53842) HgA1C , Office 5.5 % (Normal) Range: 4.6 - 7.1 :06 Blood Glucose , Office (07652) Blood Glucose , Office 122 (Normal) 0-Cjq-354397:49 Comprehensive Metabolic Profil Comments: [facility] [address] [place], [place], [address] GAP 7 (Normal) Range: 5-15 CO2 29.0 [...] <126 mg/dLsuggests IMPAIRED HOMEOSTASIS per A.D.A. criteria. 8-Dlh-113362:49 Magnesium Comments: [facility] [address] [place], [place], [address] MG 2.0 mg/dL (Normal) Range: 1.8-2.4 2-Yop-359060:49 Thyroid Stim Hormone (TSH) Comments: [facility] [address] [place], [place], [address] TSH 3.30 {uIU/mL} (Normal) Range: 0.358-3.74 2-Puc-944339:49 Vitamin D,25 Hydroxy Comments: [facility] [address] [place], [address] Vitamin D 25-OH 32.0 ng/mL (Normal) Comments: Vitamin D 25(OH) Status Range Deficiency <20 ng/mL (50nmol/L) Insuffciency 20 - 30 ng/mL (50 - 75 nmol/L) Sufficiency 30 - 100 ng/mL (75 - 250 nmol/L) Toxicity >100 ng/mL (>250 nmol/L) 5-Vfr-683525:20 HgA1C , Office (24884) HgA1C , Office 5.7 % (Normal) Range: 4.6 - 7.1 2-Mep-584325:20 Blood Glucose , Office (30429) Blood Glucose , Office 74 (Normal) 97-Bru-541371:26 Culture, Aerobic, Comments: PATIENT NOT FASTINGPERFORMED BY: TRUDY [facility] Cpzlex2251 [facility] [id number] Information: RIGHT THUMB SRC:RU Bacterial ID (92442) Result 2 BETAGB (Abnormal) Comments: Beta hemolytic [...] Meropenem Aerobic Bacterial Final report (Abnormal) Culture 54-Kfh-765987:27 HgA1C , Office (86253) HgA1C , Office 5.7 % (Normal) Range: 4.6 - 7.1 40-Bim-851896:27 Blood Glucose , Office (40490) Blood Glucose , Office 84 (Normal) 30-Bqr-559151:30 CALCIFEDIOL (92727) Comments: PATIENT NOT FASTINGPERFORMED BY: [facility]Met[facility] [address] Roadblin [place] [id number] Vitamin D, 25-Hydroxy 37.5 ng/mL (Normal) Range: 30.0-100.0 Comments: Vitamin D deficiency has been defined by the [place] ofLicking Memorial Hospitalcine and an Endocrine Society practice guideline as alevel of serum 25-OH vitamin D less than 20 ng/mL (1,2).The Endocrine Society went on to further define vitamin Dinsufficiency as a level between 21 and 29 ng/mL (2).1. IOM ([place] of Medicine). 2010. Dietary reference intakes for calcium and D. [place]: The National Academies Press.2. Shelby MF, Sergio [place], Larry-Mal MERCER, et al. Evaluation, treatment, and prevention of vitamin D deficiency: an Endocrine Society clinical practice guideline. JCEM. 2010; 96(7):1911-30. 11-Lpo-180361:30 T4, FREE (THYROXINE) (97336) Comments: PATIENT NOT FASTINGPERFORMED BY: [facility] Vfbukg7675 [address] [facility] HospitalDublin [place] [id number] T4,Free(Direct) 1.75 ng/dL (Normal) Range: 0.82-1.77 75-Rez-980147:30 TSH (06793) Comments: PATIENT NOT FASTINGPERFORMED BY: [facility] Wpmnfz3051 Mistry RoadDublin [place] [id number] TSH 0.795 {uIU/mL} (Normal) Range: 0.450-4.500 01-Ttw-881734:30 Metabolic Panel, Comments: PATIENT NOT FASTINGPERFORMED BY: [facility] Mctokm5626 Mistry RoadDublin [place] [id number] Information: [id number], [id number] Comprehensive (63523) ALT (SGPT) 26 [iU]/L (Normal) Range: 0-32 [...] Glucose, Serum 92 mg/dL (Normal) Range: 65-99 3-Zsp-405957:47 Urinalysis, Complete Comments: Order Date: 01/24/16How was Urine Obtained? [facility] Hroebgzkrk8433 [facility] [place], [address] MUCUS, URINE 0 SEEN {/hpf} [...] (Normal) :47 Urine Drug Screen (VISTA) Comments: [facility] [address] [place], [address] THC NEGATIVE (Normal) PCP NEGATIVE [...] TESTING MUST BE ORDERED SEPARATELY. USE TESTMNEMONIC: [facility] 2-Wac-288734:17 Alcohol, Blood (Medical)-Serum Comments: [facility] [address] [place], [address] SERUM ETOH 11.0 mg/dL (Normal) Comments: The serum:whole blood ethanol ratio is approximately 1.14and varies slightly with hematocrit.Medical Alcohol reference interval and critical value innon-tolerant individuals; 50 - 100 Impairment 100 Intoxication 100 - 250 Severe Poisoning 250 - 400 Deep/possible fatal coma :17 Basic Metabolic Profile (BMP) Comments: [facility] [address] [place], [address] GAP 7 (Normal) Range: 5-15 CO2 30.0 [...] 7-18 GLU 85 mg/dL (Normal) Range: 70-110 1-Xmb-057672:17 CBC W/Diff, Automated Comments: [facility] [address] [place], [place], [address] Absolute Lymph 1.58 {X10_3/ul} (Normal) Range: 0.83-4.51 [...] 4.2-5.4 WBC 5.7 K/mm3 (Normal) Range: 4.4-11.0 :17 Thyroid Stim Hormone (TSH) Comments: [facility] [address]ossr[address] [place], [place], [address] TSH 6.50 {uIU/mL} (Abnormal) Range: 0.358-3.74 :54 T4 Free Direct Comments: [facility] [address] [place] [address], [address] T4 FREE DIRECT 1.03 ng/dL (Normal) Range: 0.76-1.46 :54 Thyroid Stim Hormone (TSH) Comments: [facility] Anbpothosi[address] [place], [place], [address] TSH 6.21 {uIU/mL} (Abnormal) Range: 0.358-3.74 21-Gfx-505662:47 TSH (THYROID STIMULATING Comments: PATIENT NOT FASTINGPERFORMED BY: LabCoHampton Behavioral Health CenterWwblem6112 [facility] [id number] Information: [id number] HORMONE) (06916) TSH 12.540 {uIU/mL} (Abnormal) Range: 0.450-4.500 :08 Comprehensive Metabolic Profil Comments: [facility] [address] [place], [place], [address] GAP 6 (Normal) Range: 5-15 CO2 28.0 [...] per A.D.A. criteria. :08 Free T3 Comments: [facility] [address] [place], [place], [address] FREE T3 1.7 pg/mL (Abnormal) Range: 2.18-3.98 :08 Magnesium Comments: [facility] [address]auw[address] [place], [place], [address] MG 2.0 mg/dL (Normal) Range: 1.8-2.4 :08 T4 Free Direct Comments: [facility] Rpadtviinb2755 [facility] [address]. [place], [place], [address] T4 FREE DIRECT 1.01 ng/dL (Normal) Range: 0.76-1.46 :08 Thyroid Stim Hormone (TSH) Comments: [facility] [address]aasseektr[address] [place], [address] TSH 4.70 {uIU/mL} (Abnormal) Range: 0.358-3.74 :08 Vitamin D,25 Hydroxy Comments: [facility] [address]apoxbdifc6475 [address] [place], [address] Vitamin D 25-OH 38.3 ng/mL (Normal) Comments: Vitamin D 25(OH) Status Range Deficiency <20 ng/mL (50nmol/L) Insuffciency 20 - 30 ng/mL (50 - 75 nmol/L) Sufficiency 30 - 100 ng/mL (75 - 250 nmol/L) Toxicity >100 ng/mL (>250 nmol/L) :03 CALCIFEDIOL (30800) Comments: PATIENT NOT FASTINGPERFORMED BY: [employer] [facility] [id number] Vitamin D, 25-Hydroxy 38.4 ng/mL (Normal) Range: 30.0-100.0 Comments: Vitamin D deficiency has been defined by the [place] ofMedicine and an Endocrine Society practice guideline as alevel of serum 25-OH vitamin D less than 20 ng/mL (1,2).The Endocrine Society went on to further define vitamin Dinsufficiency as a level between 21 and 29 ng/mL (2).1. IOM ([place] of Medicine). 2010. Dietary reference intakes for calcium and D. [place]: The National Academies Press.2. Shelby MF, Sergio [place], Anatoly MERCER, et al. Evaluation, treatment, and prevention of vitamin D deficiency: an Endocrine Society clinical practice guideline. JCEM. 2010; 96(7):1911-30. :03 T4, FREE (THYROXINE) Comments: PATIENT NOT FASTINGPERFORMED BY: [facility] Wxsghv99[address] [facility] [id number] Information: [id number] (92240) T4,Free(Direct) 1.08 ng/dL (Normal) Range: 0.82-1.77 :03 T3, FREE (TRIDOTHYRONINE) (64438) Comments: PATIENT NOT FASTINGPERFORMED BY: LabCoHampton Behavioral Health CenterSsbjef8190 [facility] [id number] Triiodothyronine,Free,Serum 2.2 pg/mL (Normal) Range: 2.0-4.4 :03 TSH (16496) Comments: PATIENT NOT FASTINGPERFORMED BY: LabCoHampton Behavioral Health CenterMcjjth6120 [facility] [id number] TSH 25.300 {uIU/mL} (Abnormal) Range: 0.450-4.500 :10 Urinalysis, Complete Comments: How was Urine Obtained? CLEAN [facility] [address]gmpz[address] [place], [address] ; managed by another doctor MUCUS, URINE [...] (Normal) CLARITY Clear (Normal) COLOR Yellow (Normal) :30 Basic Metabolic Profile (BMP) Comments: 'TROP' Serial specimen #1, #2, #3, or #4: [address] [place] [address] [address] [place], [address] GAP 1 (Abnormal) Range: 5-15 CO2 29.0 [...] 7-18 GLU 108 mg/dL (Normal) Range: 70-110 1-Bis-319621:30 CBC W/Diff, Automated Comments: [facility] [address] [place], [address] Absolute Lymph 1.66 {X10_3/ul} (Normal) Range: 0.83-4.51 [...] 4.2-5.4 WBC 5.7 K/mm3 (Normal) Range: 4.4-11.0 8-Inu-328944:30 Troponin-I Comments: 'TROP' Serial specimen #1, #2, #3, or #4: 1[facility] [address], [place], [id number] TROPONIN-I < 0.02 ng/mL (Normal) Comments: TROPONIN-I EXPECTED VALUES <0.05 NEGATIVE 0.06 - 0.59 AT RISK OF GA > OR = 0.60 SUGGEST GA 80-Zph-809898:20 Pap IG, HPV-hr Comments: No. of containers..01 CYTYC Thin Prep VialPERFORMED BY: WB LabAction Online EntertainmentFclajtjixn958 [facility] [id number] BY: =G [employer] Numjnvmwmz865 [facility] [id number] Information: [id number] HPV, high-risk Negative Comments: This high-risk HPV [...] PRESENT.THIS SPECIMEN WAS RESCREENED PART OF OUR TENTMAKER PROGRAM.Satisfactory for evaluation. (Normal) Endocervical component may not bedistinguished in cases of atrophy.Areas of partially obscuring inflammtory exudate are present.Z11.51Z12.4Temo Holliday, Market Research Coordinator (ASCP)Bernadine Camargo Market Research Coordinator (ASCP) 16-September Please note [facility] Comments: No. of containers..01 CYTYC Thin Prep VialPERFORMED BY: WB Q-Sensei120 [place] ElderSense.[facility] W [id number] BY: =G [facility] Nmjngjdyvt528 [facility] [place] [id number] - (Normal) Comments: We have received your request for additional testing or testverification. You will be notified if we are unable to processyour request. 0:20 -September Written COMMNT Comments: No. of containers..01 CYTYC Thin Prep VialPERFORMED BY: Deskwantedrp Fjkxsqjtec415 [facility] HospitalInnomiNetje[facility] W [id number] BY: =G [facility] Ltexcelilj497 [facility] [place] [id number] - Authoriz RCV (Normal) Comments: Written Authorization Received.AUTHORIZATION SIGNED ROSA ISELA SWEET ON 10/11/2015 0:20 92-Ohg-402047:49 OVA & PARASITE DIR SMEAR Comments: PATIENT NOT FASTINGPERFORMED BY: [facility]acksAt[facility] [id number] (53147) Result 1 NOCP (Normal) Comments: No ova, cysts, or parasites seen. Ova + Parasite Exam Final report (Normal) Comments: These results were obtained using wet preparation(s) and trichromestained smear. This test does not include testing for Cryptosporidiumparvum, Cyclospora, or Microsporidia. :49 OCCULT BLOOD FECES SCREEN Comments: PATIENT NOT FASTINGPERFORMED BY: [employer]6370 Paperless Transaction ManagementAtrium Health Providence [id number] (06207) Occult Blood, Fecal, IA Negative (Normal) 53-Hxs-250834:49 LEUKOCYTE COUNT, FECAL Comments: PATIENT NOT FASTINGPERFORMED BY: [address] [id number] (51924) Result 1 NWBC (Normal) Comments: No white blood cells seen. White Blood Cells (WBC), Final report (Normal) Stool 29-Ski-324429:50 C-DIFFICILE, STOOL (09267) Comments: PATIENT NOT FASTINGPERFORMED BY: [address] [id number] Information: [id number] C difficile Toxins A+B, EIA Negative (Normal) 27-Tpn-595476:49 RUBENS CULTURE-STOOL (51997) Comments: PATIENT NOT FASTINGPERFORMED BY: [address] [id number] Information: SRC:ST [id number] E coli Shiga Toxin EIA Negative (Normal) Result 1 NCI (Normal) Comments: No Campylobacter species isolated. Campylobacter Culture Final report (Normal) Result 1 NSS (Normal) Comments: No Salmonella or Shigella recovered. Salmonella/Shigella Screen Final report (Normal) 0-Bji-434523:42 Calcium Ionized Comments: [facility] (refer to report for specific site)refer to report for address and phone [place] [address] 4.8 mg/dL (Normal) Range: 4.5-5.6 Comments: Performed at: [address] [id number] Director: Rocky Dudley PhD, Phone: [phone] 49-Snn-358517:17 URINE RUBENS CULTURE-JAYDEN COL Comments: PATIENT NOT FASTINGPERFORMED BY: [address] [id number] Information: SRC:URC [id number] COUNT (22267) Result 1 MUG (Normal) Comments: Mixed urogenital flora4,000 Colonies/mL Urine Culture,Comprehensive Final report (Normal) 76-Sno-515047:18 PT (PROTHROMBIN TIME) (56968) Comments: PATIENT NOT FASTINGPERFORMED BY: [address] [id number] Prothrombin Time 10.1 {sec} (Normal) Range: 9.1-12.0 INR 1.0 (Normal) Range: 0.8-1.2 Comments: Reference interval is for non-anticoagulated patients. . Suggested INR therapeutic range for Vitamin K anta gonist therapy: Standard Dose (moderate intensity therapeutic range): 2.0 - 3.0 Higher intensity therapeutic range 2.5 - 3.5 54-Eth-374333:18 CBC, Platelets & Auto Comments: PATIENT NOT FASTINGPERFORMED BY: LabCoHampton Behavioral Health CenterZwcmvq3251 [facility] [id number] Information: [id number] Diff (91412) Immature Grans (Abs) 0.0 {x10E3/uL} (Normal) Range: [...] 3.77-5.28 WBC 6.0 {x10E3/uL} (Normal) Range: 3.4-10.8 60-Bca-807460:18 Metabolic Panel, Basic Comments: PATIENT NOT FASTINGPERFORMED BY: [facility] Etftrh7543 [facility] [id number] (63485) Calcium, Serum 10.5 mg/dL (Abnormal) Range: 8.7-10.3 [...] Glucose, Serum 76 mg/dL (Normal) Range: 65-99 61-Hvi-479353:40 Blood Glucose , Office (91229) Blood Glucose , Office 112 (Normal) 77-Dvi-541621:40 HgA1C , Office (68911) HgA1C , Office 5.6 % (Normal) Range: 4.6 - 7.1 99-Vtu-645211:49 Urinalysis, Office (05569) UA - LEUKOCYTE ESTERASE Small (Normal) UA - NITRITE Negative (Normal) URINE UROBILINGN JAYDEN TIMED Normal mg/dL (Normal) UA - PROTEIN Negative mg/dL (Normal) UA - PH 6 (Abnormal) UA - BLOOD Negative (Normal) UA - SPECIFIC GRAVITY 1.030 (Abnormal) UA - KETONES Negative mg/dL (Normal) UA - BILIRUBIN Negative (Normal) UA - GLUCOSE Negative (Normal) 1-Isk-899110:00 Basic Metabolic Profile (BMP) Comments: [facility] [address] [place], [address] GAP 6 (Normal) Range: 5-15 CO2 28.0 [...] 7-18 GLU 89 mg/dL (Normal) Range: 70-110 :33 CALCIFIDIOL (34122) VIT D 25 Comments: fax copy to Dr. Mitchell [phone]; PATIENT NOT FASTINGPERFORMED BY: [employer] [place] [id number] Vitamin D, 25-Hydroxy 34.2 ng/mL (Normal) Range: 30.0-100.0 Comments: Vitamin D deficiency has been defined by the [place] ofLicking Memorial Hospitalcine and an Endocrine Society practice guideline as alevel of serum 25-OH vitamin D less than 20 ng/mL (1,2).The Endocrine Society went on to further define vitamin Dinsufficiency as a level between 21 and 29 ng/mL (2).1. IOM ([place] of Medicine). 2010. Dietary reference intakes for calcium and D. [place]: The National Academies Press.2. Shelby MF, Sergio NC, Anatoly MERCER, et al. Evaluation, treatment, and prevention of vitamin D deficiency: an Endocrine Society clinical practice guideline. JCEM. 2010; 96(7):1911-30. :33 PTH (PARATHORMONE) (09147) Comments: fax copy to Dr. Mitchell [phone]; PATIENT NOT FASTINGPERFORMED BY: Hymite LabFindYogirp Cnoajc3522 [employer] [place] [id number] PTH, Intact 67 pg/mL (Abnormal) Range: 15-65 0-Ulr-906585:33 Metabolic Panel, Comments: fax to Dr. Mitchell fax [phone]; PATIENT NOT FASTINGPERFORMED BY: Deskwanted Dvyfbv5638 [facility] [id number] Information: [id number], [id number] Comprehensive (54020) ALT (SGPT) 17 [iU]/L (Normal) Range: 0-32 [...] 6.2 mg/dL Comments: PATIENT NOT FASTINGPERFORMED BY: Deskwanted Jdtmpb5554 [facility] [id number] :11 (Abnormal) Range: 4.5-5.6 PTH, Intact 59 pg/mL (Normal) Comments: PATIENT NOT FASTINGPERFORMED BY: [place] 9[address]34[address] [facility] [id number] :11 Range: 15-65 Thyroxine (T4) 8.6 ug/dL (Normal) Comments: PATIENT NOT FASTINGPERFORMED BY: [place] 9[address]34[address] [facility] [id number] :11 Range: 4.5-12.0 Triiodothyronine (T3) 96 ng/dL (Normal) Comments: PATIENT NOT FASTINGPERFORMED BY: [address] [id number] :11 Range: 71-180 TSH 0.985 {uIU/mL} Comments: PATIENT NOT FASTINGPERFORMED BY: [address] [id number] Information: [id number] :11 (Normal) Range: 0.450-4.500 :27 HgA1C , Office (33803) HgA1C , Office 6.0 % (Normal) Range: 4.6 - 7.1 :27 Blood Glucose , Office (20127) Blood Glucose , Office 168 (Normal) Comments: already ate today :54 Basic Metabolic Panel (8) Comments: PATIENT NOT FASTINGPERFORMED BY: [address] [id number] Information: [id number] Calcium, Serum 10.5 mg/dL (Abnormal) Range: 8.7-10.3 [...] (Normal) Range: 65-99 :18 HgA1C , Office (70674) HgA1C , Office 5.8 % (Normal) Range: 4.6 - 7.1 :18 Blood Glucose , Office (86322) Blood Glucose , Office 74 (Normal) :42 Culture, Urine Comments: Test performed at:[facility] Cdmvrkqpbv7006 [facility]. [place], [place] [address] CUUR See Note (Normal) Comments: Urine CultureORGANISM [...] $ 1 S(NF) indicates non-formulary drug at [facility]. Approval by Infectious Disease Specialist required before non-formulary drugs may be or dered and/or dispensed. * CLSI guidelines does not recommend testing of cephalosporins. This interpretation is deduced from Beta-lactam/penicillin results. :42 Urinalysis, Routine (Dipstick) Comments: How was Urine Obtained? CLEAN CATCHTest performed at:[facility] Xjgkseqobi1651 [facility] [place] [place] [address] LEUK ESTERASE 500 /ul (Abnormal) OCCULT BLOOD-UR Negative /ul (Normal) NITRITE UR Negative (Normal) UROBILI Normal mg/dL (Normal) PROT DIPSTX Negative mg/dL (Normal) pH UR 5.0 (Normal) Range: 5.0 - 8.0 SP.GR. DIPSTX 1.025 (Normal) Range: 1.002-1.030 KETONE UR Negative mg/dL (Normal) BILIRUBIN URINE Negative mg/dL (Normal) GLUCOSE, UR Normal mg/dL (Normal) CLARITY Sl. Cloudy (Normal) COLOR Yellow (Normal) 94-Bie-994842:01 Bedside Glucose Comments: Test performed at:[facility] Iawwpzdyqj7209 [facility] [place] [place] [address] BEDSIDE GLU 94 mg/dL (Normal) Range: 70-110 Comments: Policy and Physicians Orders followedMANAGEMENT OF PATIENT CARE PER NURSING PROTOCOL 5-Gxb-032968:45 Culture, Urine Comments: Test performed at:[facility] Eohrxajxey5290 [facility] [place] [place] [address] CUUR See Note (Normal) Comments: Urine CultureORGANISM [...] $ <=20 S(NF) indicates non-formulary drug at [facility]. Approval by Infectio us Disease Specialist required before non-formulary drugs may be ordered and/or dispensed. 4-Tst-314687:45 Urinalysis, Routine (Dipstick) Comments: How was Urine Obtained? CLEAN CATCHTest performed at:[facility] Mqlxgdmqyd1129 [facility] [place] [place] [address] LEUK ESTERASE 25 /ul (Abnormal) OCCULT BLOOD-UR 150 /ul (Abnormal) NITRITE UR Negative (Normal) UROBILI Normal mg/dL (Normal) PROT DIPSTX Negative mg/dL (Normal) pH UR 6.0 (Normal) Range: 5.0 - 8.0 SP.GR. DIPSTX 1.015 (Normal) Range: 1.002-1.030 KETONE UR Negative mg/dL (Normal) BILIRUBIN URINE Negative mg/dL (Normal) GLUCOSE, UR Normal mg/dL (Normal) CLARITY Clear (Normal) COLOR Yellow (Normal) 7-Iia-807028:12 Microscopic Examination Comments: PATIENT WAS FASTINGPERFORMED BY: Channel IntelligenceCoHampton Behavioral Health CenterPbdbnu5992 [facility] [id number] Bacteria Few (Normal) Mucus Threads Present (Normal) Epithelial Cells (non renal) 0-10 {/hpf} (Normal) Range: 0 - 10 RBC 0-2 {/hpf} (Normal) Range: 0 - 2 WBC 6-10 {/hpf} (Abnormal) Range: 0 - 5 4-Slx-194858:09 Urinalysis, Office (44523) UA - LEUKOCYTE ESTERASE Small (Normal) UA - NITRITE Negative (Normal) URINE UROBILINGN JAYDEN TIMED Normal mg/dL (Normal) UA - PROTEIN Negative mg/dL (Normal) UA - PH 7 (Normal) UA - BLOOD Hemolyzed Trace (Normal) UA - SPECIFIC GRAVITY 1.020 (Normal) UA - KETONES Negative mg/dL (Normal) UA - BILIRUBIN Negative (Normal) UA - GLUCOSE Negative (Normal) :53 HgA1C , Office (14656) HgA1C , Office 6.1 % (Normal) Range: 4.6 - 7.1 :53 Blood Glucose , Office (24088) Blood Glucose , Office 100 (Normal) 9-Yhi-869898:07 Urinalysis, Office (52801) UA - LEUKOCYTE ESTERASE Small (Normal) UA - NITRITE Negative (Normal) URINE UROBILINGN JAYDEN TIMED Normal mg/dL (Normal) UA - PROTEIN 100 mg/dL (Normal) UA - PH 6.5 (Normal) UA - BLOOD ++ (Abnormal) UA - SPECIFIC GRAVITY 1.025 (Normal) UA - KETONES Negative mg/dL (Normal) UA - BILIRUBIN Negative (Normal) UA - GLUCOSE Negative (Normal) 27-Gdi-783521:06 URINE RUBENS CULTURE-IDENTIFICATN Comments: PATIENT NOT FASTINGPERFORMED BY: LabCoHampton Behavioral Health CenterRrerqv7912 [facility] [id number] Information: [id number] (21343) Result 1 MUG (Normal) Comments: Mixed urogenital flora1,000 Colonies/mL Urine Culture,Comprehensive Final report (Normal) 56-Iwz-179532:43 Urinalysis, Office (31822) UA - LEUKOCYTE ESTERASE Large (Normal) UA - NITRITE Negative (Normal) URINE UROBILINGN JAYDEN TIMED 2 mg/dL (Normal) UA - PROTEIN Negative mg/dL (Normal) UA - PH 6.0 (Normal) UA - BLOOD Hemolyzed Large (Normal) UA - SPECIFIC GRAVITY 1.015 (Normal) UA - KETONES Negative mg/dL (Normal) UA - BILIRUBIN Negative (Normal) UA - GLUCOSE Negative (Normal) 9-Cvk-471722:12 TSH (08860) Comments: PATIENT WAS FASTINGPERFORMED BY: [facility]At[facility] [id number] TSH 1.070 {uIU/mL} (Normal) Range: 0.450-4.500 5-Nha-383090:12 URINALYSIS, W/ MICRO (62930) Comments: PATIENT WAS FASTINGPERFORMED BY: [facility]At[facility] [id number] Microscopic Examination See below: (Normal) Comments: Microscopic was indicated and was performed. Microscopic Examination MICRON (Normal) Comments: Microscopic follows if indicated. Nitrite, Urine Negative (Normal) Urobilinogen,Semi-Qn 0.2 mg/dL (Normal) Range: 0.0-1.9 Bilirubin Negative (Normal) Occult Blood Negative (Normal) Ketones Negative (Normal) Glucose Negative (Normal) Protein Negative (Normal) WBC Esterase Negative (Normal) Appearance Clear (Normal) Urine-Color Yellow (Normal) pH 7.0 (Normal) Range: 5.0-7.5 Specific [place] 1.015 (Normal) Range: 1.005-1.030 8-Qhv-374797:12 METABOLIC PANEL, COMPREHENSIVE Comments: PATIENT WAS FASTINGPERFORMED BY: [facility] [id number] (98111) ALT (SGPT) 20 [iU]/L (Normal) Range: 0-32 [...] Glucose, Serum 86 mg/dL (Normal) Range: 65-99 5-Uxe-521846:12 LIPID PANEL (50240) Comments: PATIENT WAS FASTINGPERFORMED BY: LabCoHampton Behavioral Health CenterJgtrsr1101 [facility] [id number] LDL/HDL Ratio 2.0 {ratio_units} (Normal) Range: 0.0-3.2 [...] Cholesterol, Total 192 mg/dL (Normal) Range: 100-199 4-Fac-223858:12 CBC W/AUTO DIFF WBC Comments: PATIENT WAS FASTINGPERFORMED BY: LabCoHampton Behavioral Health CenterCecqrt0995 [facility] [id number] Information: [id number], [id number] (84120) Immature Grans (Abs) 0.0 {x10E3/uL} (Normal) Range: [...] (Normal) Range: 3.4-10.8 :57 HgA1C , Office (87355) HgA1C , Office 5.7 % (Normal) Range: 4.6 - 7.1 :57 Blood Glucose , Office (18328) Blood Glucose , 91 (Normal) Office : B12 434 pg/mL (Normal) Range: 211-911 28 : COMM[employer] WORK[employer] 112 ug/dL (Normal) Range: 72-166 28 Comments: Detection Limit = 5Performed at: [facility] [employer] [id number] Director: Heladio Schaffer MD, Phone: [phone] : VITD 37.9 mg/mL (Normal) Comments: Vitamin D 25(OH) Status RangeDeficiency <20 ng/mL (50nmol/L)Insuffciency 20 - 30 ng/mL (50 - 75 nmol/L)Sufficiency 30 - 100 ng/mL (75 - 250 28 nmol/L)Toxicity >100 ng/mL (>250 nmol/L) 5-Svg-568070:22 Microscopic Examination Comments: PATIENT WAS FASTINGPERFORMED BY: [employer] [facility] [id number] Bacteria Few (Normal) Mucus Threads Present (Normal) Crystal Type Calcium Oxalate (Normal) Crystals Present (Abnormal) Epithelial Cells (non renal) 0-10 {/hpf} (Normal) Range: 0 - 10 RBC 3-10 {/hpf} (Abnormal) Range: 0 - 2 WBC 0-5 {/hpf} (Normal) Range: 0 - 5 :39 HgA1C , Office (36166) HgA1C , Office 5.7 % (Normal) Range: 4.6 - 7.1 :39 Blood Glucose , Office (55535) Blood Glucose , Office 106 (Normal) Comments: non fasting :02 CALCIFIDIOL (77002) VIT D 25 Comments: PATIENT WAS FASTINGPERFORMED BY: [employer].SocialDublin [place] [id number] Vitamin D, 25-Hydroxy 29.8 ng/mL (Abnormal) Range: 30.0-100.0 Comments: Vitamin D deficiency has been defined by the [place] ofMedicine and an Endocrine Society practice guideline as alevel of serum 25-OH vitamin D less than 20 ng/mL (1,2).The Endocrine Society went on to further define vitamin Dinsufficiency as a level between 21 and 29 ng/mL (2).1. IOM ([place] of Medicine). 2010. Dietary reference intakes for calcium and D. [place]: The National Academies Press.2. Shelby MF, Sergio [place], Anatoly MERCER, et al. Evaluation, treatment, and prevention of vitamin D deficiency: an Endocrine Society clinical practice guideline. JCEM. 2010; 96(7):1911-30. :02 TSH (13336) Comments: PATIENT WAS FASTINGPERFORMED BY: [employer]kwanted Vjavih5138 [facility] [id number] TSH 1.410 {uIU/mL} (Normal) Range: 0.450-4.500 8-Qna-973955:02 URINALYSIS, W/ MICRO (63649) Comments: PATIENT WAS FASTINGPERFORMED BY: [employer] [facility] [id number] Microscopic Examination See below: (Normal) Nitrite, Urine Negative (Normal) Urobilinogen,Semi-Qn 0.2 mg/dL (Normal) Range: 0.0-1.9 Bilirubin Negative (Normal) Occult Blood 3+ (Abnormal) Ketones Negative (Normal) Glucose Negative (Normal) Protein 1+ (Abnormal) WBC Esterase 1+ (Abnormal) Appearance Clear (Normal) Urine-Color Yellow (Normal) pH 6.5 (Normal) Range: 5.0-7.5 Specific [place] 1.023 (Normal) Range: 1.005-1.030 :02 METABOLIC PANEL, COMPREHENSIVE Comments: PATIENT WAS FASTINGPERFORMED BY: [employer] [facility] [id number] (00896) ALT (SGPT) 16 [iU]/L (Normal) Range: 0-32 [...] Glucose, Serum 88 mg/dL (Normal) Range: 65-99 0-Igv-368994:02 CBC WITH MANUAL DIFF Comments: PATIENT WAS FASTINGPERFORMED BY: [facility] [facility] [id number] Information: [id number] (90340) Immature Grans (Abs) 0.0 {x10E3/uL} (Normal) Range: [...] Range: 3.4-10.8 :11 Blood Glucose , Office (38109) Blood Glucose , Office 161 (Normal) Comments: nonfasting :11 HgA1C , Office (95797) HgA1C , Office 5.5 % (Normal) Range: 4.6 - 7.1 :46 Metabolic Panel, Comments: all copies to Dr. cruz Montero; PATIENT NOT FASTINGPERFORMED BY: [facility] Pzcjxz5817 [facility] [id number] Information: [id number],NURSE DRAW Comprehensive (23629) ALT (SGPT) 22 [iU]/L (Normal) Range: 0-32 [...] Glucose, Serum 114 mg/dL (Abnormal) Range: 65-99 5-Jsg-316206:46 TSH (43721) Comments: PATIENT NOT FASTINGPERFORMED BY: Channel IntelligenceCoHampton Behavioral Health CenterKaaseb3176 [facility] [id number] TSH 0.648 {uIU/mL} (Normal) Range: 0.450-4.500 7-Cfq-065798:46 CBC (Auto) (62867) Comments: PATIENT NOT FASTINGPERFORMED BY: LabCoHampton Behavioral Health CenterNrbtnp5687 [facility] [id number] Platelets 281 {x10E3/uL} (Normal) Range: 155-379 RDW [...] Range: 4.4-11.0 :49 Blood Glucose , Office (91388) Blood Glucose , Office 87 (Normal) :49 HgA1C , Office (95948) HgA1C , Office 5.6 % (Normal) Range: 4.6 - 7.1 :11 Urinalysis, Office (01068) UA - BILIRUBIN Negative (Normal) UA - BLOOD Non Hemolyzed Trace (Normal) UA - GLUCOSE Negative (Normal) UA - KETONES Negative mg/dL (Normal) UA - LEUKOCYTE ESTERASE Trace (Normal) UA - NITRITE Negative (Normal) UA - PH 7.0 (Normal) UA - PROTEIN Negative mg/dL (Normal) UA - SPECIFIC GRAVITY 1.020 (Normal) URINE UROBILINGN JAYDEN TIMED Normal mg/dL (Normal) 21-Dec-20129:57 Blood Glucose , Office (34736) Blood Glucose , Office 73 (Normal) 69-Oel-416086:27 CALCIUM, IONIZED (90677) Comments: PATIENT NOT FASTINGPERFORMED BY: [facility]Paul [facility] [facility] [id number] Information: [id number] Calcium, Ionized, Serum 6.1 mg/dL (Abnormal) Range: 4.5-5.6 49-Pjp-631307:08 URINE RUBENS CULTURE-IDENTIFICATN Comments: PATIENT NOT FASTINGPERFORMED BY: LabCoHampton Behavioral Health CenterRwxatr6327 [facility] [id number] Information: [id number] (39343) Result 1 CNSNSS (Normal) Comments: Coagulase negative [...] report Culture,Comprehe (Normal) nsive :45 Urinalysis, Office (79658) UA - BILIRUBIN Negative (Normal) UA - [...] CULTURE-JAYDEN COL Comments: PATIENT NOT FASTINGPERFORMED BY: [facility] [id number] Information: SRC:UR ADD [id number] COUNT (27759) Result 1 MUG (Normal) Comments: Mixed urogenital flora50,000-100,000 colony forming units per mL Urine Final report (Normal) Culture,Comprehensive :44 Urinalysis, Office (40347) UA - BILIRUBIN Negative (Normal) UA - BLOOD Hemolyzed Large (Normal) UA - GLUCOSE Negative (Normal) UA - KETONES Negative mg/dL (Normal) UA - LEUKOCYTE ESTERASE Trace (Normal) UA - NITRITE Negative (Normal) UA - PH 6.0 (Normal) UA - PROTEIN Negative mg/dL (Normal) UA - SPECIFIC GRAVITY 1.020 (Normal) URINE UROBILINGN JAYDEN TIMED Normal mg/dL (Normal) 05-Wly-00183:10 PARATHORMONE (34973) Comments: PATIENT NOT FASTINGPERFORMED BY: [employer] Natkgx5695 [employer] [place] [id number] PTH, Intact 36 pg/mL (Normal) Range: 15-65 :10 CALCIUM, IONIZED (56480) Comments: PATIENT NOT FASTINGPERFORMED BY: [employer] Jzluyq7331 [place] [id number] Information: [id number] Calcium, Ionized, Serum 6.3 mg/dL (Abnormal) Range: 4.5-5.6 3-Fte-870291:17 TSH (44905) Comments: PATIENT NOT FASTINGPERFORMED BY: [employer] Clzvhi7594 [facility] [id number] TSH 1.200 {uIU/mL} (Normal) Range: 0.450-4.500 1-Nam-451792:17 Protein Electrophoresis, Comments: PATIENT NOT FASTINGPERFORMED BY: LabCoHampton Behavioral Health CenterUgcahb7948 [facility] [id number] Information: [id number] Serum (SPEP) (21293) Please note: SPRCS (Normal) Comments: Protein electrophoresis scan will follow via computer, mail, orcourier delivery. A/G Ratio 1.8 (Normal) Range: 0.7-2.0 Globulin, Total 2.4 g/dL (Normal) Range: 2.0-4.5 M-Nelson Not Observed g/dL (Normal) Gamma Globulin 0.7 g/dL (Normal) Range: 0.5-1.6 Beta Globulin 0.9 g/dL (Normal) Range: 0.6-1.3 Yfkua-3-Hhcxsmvr 0.6 g/dL (Normal) Range: 0.4-1.2 Jogbw-6-Cfikhjkt 0.2 g/dL (Normal) Range: 0.1-0.4 Albumin 4.2 g/dL (Normal) Range: 3.2-5.6 Protein, Total, Serum 6.6 g/dL (Normal) Range: 6.0-8.5 3-Gpc-214569:17 CALCIFEDIOL (42063) Comments: PATIENT NOT FASTINGPERFORMED BY: [facility]Met[facility] Zqckis7578 [facility] [id number] Vitamin D, 25-Hydroxy 35.7 ng/mL (Normal) Range: 30.0-100.0 Comments: Vitamin D deficiency has been defined by the [place] ofMedicine and an Endocrine Society practice guideline as alevel of serum 25-OH vitamin D less than 20 ng/mL (1,2).The Endocrine Society went on to further define vitamin Dinsufficiency as a level between 21 and 29 ng/mL (2).1. IOM ([place] of Medicine). 2010. Dietary reference intakes for calcium and D. [place]: The National Academies Press.2. Shelby MF, Sergio [place], Anatoly MERCER, et al. Evaluation, treatment, and prevention of vitamin D deficiency: an Endocrine Society clinical practice guideline. JCEM. 2010; 96(7):1911-30. :17 PHOSPHORUS (09327) Comments: PATIENT NOT FASTINGPERFORMED BY: [facility] [facility] [id number] Phosphorus, Serum 3.6 mg/dL (Normal) Range: 2.5-4.5 :17 PARATHORMONE (18153) Comments: PATIENT NOT FASTINGPERFORMED BY: [facility] [facility] [id number] PTH, Intact 51 pg/mL (Normal) Range: 15-65 2-Drd-831275:10 Parathyroid Hormone-related Comments: PATIENT NOT FASTINGPERFORMED BY: [employer] Gno[address] [place] [address] [id number] Peptide (PTH-rP) (07938) PTHrP (PTH-Related Peptide) <0.74 pmol/L (Normal) Comments: Reference Range:All Ages: <2.0The PTHrP assay should not be used to exclude cancer orscreen tumor patients for humoral hypercalcemia ofmalignancy (HHM). The results should always be assessed inconjun ction with the patient's medical history, clinicalexamination, and other findings. If test results areclinically discordant, please contact the laboratory. :17 CALCIUM, IONIZED (40893) Comments: PATIENT NOT FASTINGPERFORMED BY: [facility] [facility] [id number] Calcium, Ionized, Serum 6.2 mg/dL (Abnormal) Range: 4.5-5.6 1-Gbe-017163:10 URINE RUBENS CULTURE-IDENTIFICATN Comments: PATIENT NOT FASTINGPERFORMED BY: [facility] [facility] [id number] Information: [id number] (50352) Result 1 MUG (Normal) Comments: Mixed urogenital flora50,000-100,000 colony forming units per mL Urine Final report (Normal) Culture,Comprehensive :36 Urinalysis, Office (75737) UA - BILIRUBIN Negative (Normal) UA - [...] Calcium, Serum 10.9 mg/dL Comments: PERFORMED BY: [facility] [id number] :14 (Abnormal) Range: 8.6-10.2 :14 CBC With Differential/Platelet Comments: PERFORMED BY: [facility] [id number] Immature Grans (Abs) 0.0 {x10E3/uL} (Normal) Range: [...] 3.77-5.28 WBC 6.1 {x10E3/uL} (Normal) Range: 4.0-10.5 0-Ogg-509190:14 Celiac Disease Comprehensive Comments: PERFORMED BY: [employer] [facility] [id number] Immunoglobulin A, Qn, 231 mg/dL (Normal) Range: [...] A1c 5.6 % (Normal) Comments: PERFORMED BY: [employer]els[employer] [facility] [id number] 0:14 Range: 4.8-5.6 Comments: . Increased risk for diabetes: 5.7 - 6.4 Diabetes: >6.4 Glycemic control for adults with diabetes: <7.0 PTH, Intact 48 pg/mL (Normal) Comments: PERFORMED BY: [facility]elsias[address] [facility] [id number] 0:14 Range: 15-65 :36 HEPATOBILLIARY IMG W/PHARM [...] period. The post CCK gallbladder ejection fraction bvqehhvmvpre89 minutes following Cholecystokinin administration was noted to [...] Elmore M.D.September 20, 2012 at 10:16:57 PM [id number] Signed RB/RB If you are the referring physician and would like to consult with theradiologist who provided this interpretation, please contact Margoth Luna at [phone]. If this radiologist is unavailable, you will bedirected to another radiologist to assist. If you are a patient with a question regarding this report, pleasecontactyour referring physician directly. Professional Interpretation Provided By: [facility] here, Phone , These documents contain legally [...] on 09/20/122217 Sign by: Sd Elmore DO 66-Ljp-30708:36 GALLBLADDER Radiology Report See Note (Normal) Comments: [...] Chan M.D.September 09, 2012 at 10:19:06 AM [id number] 48Electronically Signed GP/GP If you are the referring physician and would like to consult with theradiologist who provided this interpretation, please contact Margoth Medina at [phone]. I f this radiologist is unavailable, youwill be directed to another radiologist to assist. If you are a patient with a question regarding this report, pleasecontactyour referring physician directly. Ever merazonal Interpretation Provided By: [employer] Phone , These documents contain legally protected [...] on 09/09 1115 by ITS IMPORTSign by Suleman Chan MD on 09/09/12 1116 Sign by: Suleman Chan MD 23-Pht-511687:55 Amylase (80075) Comments: PATIENT NOT FASTINGPERFORMED BY: [employer] Y[address]jr[address] [facility] [id number] Amylase, Serum 83 U/L (Normal) Range: 31-124 45-Lkj-430937:55 Lipase (88186) Comments: PATIENT NOT FASTINGPERFORMED BY: [employer] Tsyrcs[address] [facility] [id number] Lipase, Serum 49 U/L (Normal) Range: 0-59 56-Sky-633038:55 Metabolic Panel, Comprehensive Comments: PATIENT NOT FASTINGPERFORMED BY: [employer] Rgzetu[address] [facility] [id number] (05615) ALT (SGPT) 27 [iU]/L (Normal) Range: 0-32 [...] Glucose, Serum 72 mg/dL (Normal) Range: 65-99 91-Lno-332450:55 CBC with manual diff (45427) Comments: PATIENT NOT FASTINGPERFORMED BY: [facility]CoHam[facility] CenterBltmzu[address] [facility] [id number] Immature Grans (Abs) 0.0 {x10E3/uL} (Normal) Range: [...] 3.77-5.28 WBC 5.8 {x10E3/uL} (Normal) Range: 4.0-10.5 87-Ygw-430100:24 URINE RUBENS CULTURE-IDENTIFICATN Comments: PATIENT NOT FASTINGPERFORMED BY: [facility]SocialUNC [facility] [id number] Information: SRC: URINE ([id number]) Result 1 MUG (Normal) Comments: Mixed urogenital flora1,000 Colonies/mL Urine Culture,Comprehensive Final report (Normal) 9-Dek-846245:49 URINE RUBENS CULTURE-JAYDEN COL Comments: PATIENT NOT FASTINGPERFORMED BY: [facility] Cxzbfo9958 [facility] [id number] Information: SRC:UR [id number] COUNT (11249) Result 2 ENTECC (Normal) Comments: Enterobacter cloacae [...] 5,000 Colonies/mL (Normal) Urine Final report (Normal) Culture,[place] 22-Aug-20129:14 Urinalysis, Office (19998) UA - BILIRUBIN Negative (Normal) UA - BLOOD Negative (Normal) UA - GLUCOSE Negative (Normal) UA - KETONES Negative mg/dL (Normal) UA - LEUKOCYTE ESTERASE Small (Normal) UA - NITRITE Negative (Normal) UA - PH 6.0 (Normal) UA - PROTEIN Negative mg/dL (Normal) UA - SPECIFIC GRAVITY 1.015 (Normal) URINE UROBILINGN JAYDEN TIMED Normal mg/dL (Normal) 56-Olg-165839:56 Urinalysis, Office (90777) UA - BILIRUBIN Negative (Normal) UA - BLOOD Negative (Normal) UA - GLUCOSE Negative (Normal) UA - KETONES Negative mg/dL (Normal) UA - LEUKOCYTE ESTERASE Trace (Normal) UA - NITRITE Negative (Normal) UA - PH 7.0 (Normal) UA - PROTEIN Negative mg/dL (Normal) UA - SPECIFIC GRAVITY 1.025 (Normal) URINE UROBILINGN JAYDEN TIMED Normal mg/dL (Normal) :13 CALCIFEDIOL (60550) Comments: PATIENT WAS FASTINGPERFORMED BY: [facility] [facility] [id number] Vitamin D, 25-Hydroxy 32.6 ng/mL (Normal) Range: 30.0-100.0 Comments: Vitamin D deficiency has been defined by the [place] ofMedicine and an Endocrine Society practice guideline as alevel of serum 25-OH vitamin D less than 20 ng/mL (1,2).The Endocrine Society went on to further define vitamin Dinsufficiency as a level between 21 and 29 ng/mL (2).1. IOM ([place] of Medicine). 2010. Dietary reference intakes for calcium and D. [place]: The National Academies Press.2. Shelby MF, Sergio [place], Anatoly MERCER, et al. Evaluation, treatment, and prevention of vitamin D deficiency: an Endocrine Society clinical practice guideline. JCEM. 2010; 96(7):1911-30. :13 TSH (51305) Comments: PATIENT WAS FASTINGPERFORMED BY: [facility] [facility] [id number] TSH 1.590 {uIU/mL} (Normal) Range: 0.450-4.500 :13 MICROALBUMIN: CREATININE RATIO Comments: PATIENT WAS FASTINGPERFORMED BY: [facility] [facility] [id number] (06955) AND (96531) Creatinine, Urine 69.0 mg/dL (Normal) Range: 15.0-278.0 Microalb/Creat Ratio 9.3 {mg/g_creat} (Normal) Range: 0.0-30.0 Microalbumin, Urine 6.4 ug/mL (Normal) Range: 0.0-17.0 :13 METABOLIC PANEL, COMPREHENSIVE Comments: PATIENT WAS FASTINGPERFORMED BY: [facility] [facility] [id number] (82802) ALT (SGPT) 25 [iU]/L (Normal) Range: 0-32 [...] mg/dL (Normal) Range: 65-99 :13 LIPID PANEL (99424) Comments: PATIENT WAS FASTINGPERFORMED BY: DeskwantedHampton Behavioral Health CenterLedjbh[address] [facility] [id number] LDL/HDL Ratio 1.0 {ratio_units} (Normal) Range: 0.0-3.2 LDL Cholesterol Calc 59 mg/dL (Normal) Range: 0-99 HDL Cholesterol 60 mg/dL (Normal) Comments: According to ATP-III Guidelines, HDL-C >59 mg/dL is considered anegative risk factor for CHD. VLDL Cholesterol Tab 22 mg/dL (Normal) Range: 5-40 Triglycerides 109 mg/dL (Normal) Range: 0-149 Cholesterol, Total 141 mg/dL (Normal) Range: 100-199 :13 CBC WITH MANUAL DIFF Comments: PATIENT WAS FASTINGPERFORMED BY: DeskwantedHampton Behavioral Health CenterDwshjr[address] [facility] [id number] Information: [id number] (46668) Immature Grans (Abs) 0.0 {x10E3/uL} (Normal) Range: [...] {x10E3/uL} (Normal) Range: 4.0-10.5 :05 Urinalysis, Office (59507) UA - BILIRUBIN Negative (Normal) UA - [...] Normal mg/dL (Normal) :02 HgA1C , Office (92685) HgA1C , Office 5.4 % (Normal) Range: 4.6 - 7.1 :02 Blood Glucose , Office (67381) Blood Glucose , Office 136 (Normal) Comments: has eaten 61-Qdt-523935:00 Blood Glucose , Office (41688) Blood Glucose , Office 96 (Normal) 03-Kqa-354456:00 HgA1C , Office (08987) HgA1C , Office 5.3 % (Normal) Range: 4.6 - 7.1 25-Xyl-302852:00 Urinalysis, Office (26151) UA - BILIRUBIN Negative (Normal) UA - BLOOD Negative (Normal) UA - GLUCOSE Negative (Normal) UA - KETONES Negative mg/dL (Normal) UA - LEUKOCYTE ESTERASE Trace (Normal) UA - NITRITE Negative (Normal) UA - PH 6.0 (Normal) Comments: 5.5 UA - PROTEIN Negative mg/dL (Normal) UA - SPECIFIC GRAVITY 1.025 (Normal) URINE UROBILINGN JAYDEN TIMED Normal mg/dL (Normal) 52-Jei-06559:00 URINE RUBENS CULTURE-JAYDEN COL Comments: PATIENT NOT FASTINGPERFORMED BY: [employer] Splurg[employer] AppHeroUNC Health Rex [id number] Information: SRC:UR [id number] COUNT (04010) Result 1 ECV (Normal) Comments: Escherichia coli, [...] S Urine Final report (Normal) Culture,Comprehensiv e 08-Htq-68222:49 Urinalysis, Office (00895) UA - BILIRUBIN Negative (Normal) UA - BLOOD Non Hemolyzed Moderate (Normal) UA - GLUCOSE Negative (Normal) UA - KETONES Negative mg/dL (Normal) UA - LEUKOCYTE ESTERASE Small (Normal) UA - NITRITE Negative (Normal) UA - PH 5.0 (Normal) Comments: 5.5 UA - PROTEIN Negative mg/dL (Normal) UA - SPECIFIC GRAVITY 1.025 (Normal) Comments: 1.030 URINE UROBILINGN JAYDEN TIMED Normal mg/dL (Normal) 10-Weo-268601:15 Creatine Kinase Total (44111) Comments: PATIENT NOT FASTINGPERFORMED BY: [employer] Zqaqva[address] [facility] [id number] Creatine Kinase,Total,Serum 145 U/L (Normal) Range: 24-173 09-Txd-387131:15 Sed Rate Erythrocyte (01606) Comments: PATIENT NOT FASTINGPERFORMED BY: [facility] [facility] [id number] Sedimentation Rate-Westergren 2 mm/h (Normal) Range: 0-40 42-Kov-868821:15 CALCIFEDIOL (26337) Comments: PATIENT NOT FASTINGPERFORMED BY: [facility] [facility] [id number] Information: [id number] Vitamin D, 25-Hydroxy 40.9 ng/mL (Normal) Range: 30.0-100.0 Comments: Vitamin D deficiency has been defined by the [place] ofMedicine and an Endocrine Society practice guideline as alevel of serum 25-OH vitamin D less than 20 ng/mL (1,2).The Endocrine Society went on to further define vitamin Dinsufficiency as a level between 21 and 29 ng/mL (2).1. IOM ([place] of Medicine). 2010. Dietary reference intakes for calcium and D. [place]: The National Academies Press.2. Shelby MF, Sergio [place], Larry-Mal MERCER, et al. Evaluation, treatment, and prevention of vitamin D deficiency: an Endocrine Society clinical practice guideline. JCEM. 2010; 96(7):1911-30. 53-Arw-848398:15 PARATHORMONE (23167) Comments: PATIENT NOT FASTINGPERFORMED BY: [facility] [facility] [id number] PTH, Intact 40 pg/mL (Normal) Range: 15-65 70-Ikb-266542:01 BREAST UNILATERAL Radiology Report See Note (Normal) [...] Chan M.D.November 30, 2011 at 12:49:05 PM [id number] Signed GP/GP If you are the referring physician and would like to consult with [facility] who provided this interpretation, please contact Margoth Medina at [phone]. If this radiologist is unavailable, youwill be directed to another radiologist to assist. If you are a patien t with a question regarding this report, pleasecontactyour referring physician directly. Professional Interpretation Provided By: [employer] Phone , Dictated on 1044 by Rocio FLORES,Shireenranscribed on 11/30/11 1254 by ITS IMPORTSign by Suleman Chan MD on 11/30/11 1255 Sign by: Suleman Chan MD 92-Ocw-67369:45 BILAT SCRN DIGITAL & CAD Radiology Report [...] M.D.November 25, 2011 at 9:44:08 AM ED [id number] Signed GP/GP If you are the referring physician and would like to consult with theradiologist who provided this interpretation, please contact Margoth Medina at [phone]. If this radiologist is unavailable, youwill be directed to another radiologist to assist. If you are a patient with a question regarding this report, pleasecontactyour referring physician dire [facility]. Professional Interpretation Provided By: [employer] Phone , Dictated on 11/25/11 0923 by Rocio FLORES,Fernribed on 11/25/11 1136 by ITS IMPORTSign by Navi almodovar MD,Suleman on 11/25/11 1137 Sign by: Suleman Chan MD 31-Umd-98922:44 DEXA BONE DENSITY STUDY (HP) Radiology Report [...] M.D.November 25, 2011 at 11:00:04 AM ED [id number] Signed GP/GP If you are the referring physician and would like to consult with theradiologist who provided this interpretation, please contact Margoth Medina at [phone]. If this radiologist is unavailable, youwill be directed to another radiologist to assist. If you are a patient with a question regarding this report, pleasecontactyour referring physician dire [facility]. Professional Interpretation Provided By: [employer] Phone , Dictated on 11/25/11 0845 by Fern Chan MDribed on 11/25/11 1115 by ITS IMPORTSign by Suleman Tadeo MD on 11/25/11 1116 Sign by: Suleman Chan MD 83-Cks-25675:38 Microscopic Examination Comments: PATIENT WAS FASTINGPERFORMED BY: [facility]CoHam[facility] CenterXaobqg7[address] [facility] [id number] Bacteria Few (Normal) Mucus Threads Present (Normal) Epithelial Cells (non renal) 0-10 {/hpf} (Normal) Range: 0 - 10 RBC 0-3 {/hpf} (Normal) Range: 0 - 3 WBC 0-5 {/hpf} (Normal) Range: 0 - 5 :38 Request Problem Comments: PATIENT WAS FASTINGPERFORMED BY: [facility] [facility] [id number] :38 TSH (63179) Comments: PATIENT WAS FASTINGPERFORMED BY: [place] [address] [facility] [id number] TSH 1.010 {uIU/mL} (Normal) Range: 0.450-4.500 :38 URINALYSIS, W/ MICRO (30361) Comments: PATIENT WAS FASTINGPERFORMED BY: [facility] [facility] [id number] Microscopic Examination See below: (Normal) Microscopic Examination MICRON (Normal) Comments: Microscopic follows if indicated. Nitrite, Urine Negative (Normal) Urobilinogen,Semi-Qn 0.2 mg/dL (Normal) Range: 0.0-1.9 Bilirubin Negative (Normal) Occult Blood Negative (Normal) Ketones Negative (Normal) Glucose Negative (Normal) Protein Negative (Normal) WBC Esterase Negative (Normal) Appearance Cloudy (Abnormal) Urine-Color Yellow (Normal) pH 7.5 (Normal) Range: 5.0-7.5 Specific [place] 1.019 (Normal) Range: 1.005-1.030 :38 MICROALBUMIN: CREATININE RATIO Comments: PATIENT WAS FASTINGPERFORMED BY: [place] [address] [facility] [id number] (83736) AND (92142) :38 METABOLIC PANEL, COMPREHENSIVE Comments: PATIENT WAS FASTINGPERFORMED BY: [place] [address] [facility] [id number] (69576) ALT (SGPT) 25 [iU]/L (Normal) Range: 0-40 [...] mg/dL (Normal) Range: 65-99 :38 LIPID PANEL (68082) Comments: PATIENT WAS FASTINGPERFORMED BY: [employer] [facility] ManagementAt[facility] [id number] LDL/HDL Ratio 1.0 {ratio_units} (Normal) Range: 0.0-3.2 LDL Cholesterol Calc 66 mg/dL (Normal) Range: 0-99 VLDL Cholesterol Tab 38 mg/dL (Normal) Range: 5-40 HDL Cholesterol 65 mg/dL (Normal) Comments: According to ATP-III Guidelines, HDL-C >59 mg/dL is considered anegative risk factor for CHD. Triglycerides 191 mg/dL (Abnormal) Range: 0-149 Cholesterol, Total 169 mg/dL (Normal) Range: 100-199 :38 CBC WITH MANUAL DIFF (70874) Comments: PATIENT WAS FASTINGPERFORMED BY: [employer]6370 [employer] | [facility] [id number] Immature Grans (Abs) 0.0 {x10E3/uL} (Normal) Range: [...] (Normal) Range: 4.0-10.5 :23 HgA1C , Office (48081) HgA1C , Office 5.7 % (Normal) Range: 4.6 - 7.1 :23 Blood Glucose , Office (84436) Blood Glucose , Office 93 (Normal) Plan of Care Name Dates Details Instructions Type II diabetes mellitus, well controlled : *Diabetes Education Indication: Type II diabetes mellitus, well controlled Hypertension, benign : HTN/CAD Red Flags Indication: Hypertension, benign Hyperlipidemia, unspecified : Cholesterol mgmt Indication: Hyperlipidemia, unspecified Encounter for annual general medical examination with [...] Indication: Fatty liver Cervical pain : Reviewed [employer] Letter- in PT Indication: Cervical pain Breast [...] daytime sleepiness Excessive daytime sleepiness : Reviewed [employer] Letter Indication: Excessive daytime sleepiness Current nonsmoker [...] 1 week- gen med - do hiac- seeedmund stevens in october so due in btw nad [...] movement disorder Bruising : Follow up with psychologist [employer] personnel Indication: Bruising Frequent falls : Eprescribed prescriptions [...] : Follow up in 1 week with [facility] on a Wednesday Indication: Diabetic neuropathy [...] in 3 months Indication: Hypercalcemia Planned Observations Blood Glucose , Office (40960)Indication: Type II diabetes mellitus, well controlled On: :25 Request HgA1C , Office (18088)Indication: Type II diabetes mellitus, well controlled On: :25 Request TSH (10624)Indication: Hypothyroidism On: :08 Request URINALYSIS, W/ MICRO (66225)Indication: Type II diabetes mellitus, well controlled On: :08 Request MICROALBUMIN: CREATININE RATIO (70849) AND (94456)Indication: Type II diabetes mellitus, well controlled On: :08 Request METABOLIC PANEL, COMPREHENSIVE (76931)Indication: Type II diabetes mellitus, well controlled On: :08 Request LIPOPROTEIN, BLD, BY NMR (72677)Indication: Type II diabetes mellitus, well controlled On: :08 Request CBC W/AUTO DIFF WBC (12587)Indication: Type II diabetes mellitus, well controlled On: :08 Request Influenza A&B Viral Culture (38658)Indication: Chills On: 0-Vcf-439868:08 Request Rapid Flu (23605 x 2)Indication: Cough On: :07 Request NDYGK-PNIZWKJGSIG-DBFMN (03103)Indication: Fatty liver On: :14 Request Anti-TPO Antibody (18994)Indication: Hypothyroidism On: : Request T4, FREE (THYROXINE) (67476)Indication: Hypothyroidism On: Request T3, FREE (TRIDOTHYRONINE) (07673)Indication: Hypothyroidism On: : Request TSH (33528)Indication: Hypothyroidism On: : Request URINALYSIS, W/ MICRO (60858)Indication: Hypertension, benign On: Request MICROALBUMIN: CREATININE RATIO (66982) AND (96291)Indication: Diabetes mellitus with diabetic neuropathy On: : Request METABOLIC PANEL, COMPREHENSIVE (60691)Indication: Hypertension, benign On: Request CBC W/AUTO DIFF WBC (74111)Indication: Hypertension, benign On: : Request LIPID PANEL (15219)Indication: Hyperlipidemia, unspecified On: Request CALCIFIDIOL (98972) VIT D 25Indication: Vitamin D deficiency disease On: : Request CALCIFIDIOL (72651) VIT D 25Indication: Vitamin D deficiency disease On: 79-Gwq-699216:12 Request URINALYSIS, W/ MICRO (53745)Indication: Diabetes mellitus with diabetic neuropathy On: 37-Vpf-962235:11 Request MICROALBUMIN: CREATININE RATIO (92829) AND (49623)Indication: Diabetes mellitus with diabetic neuropathy On: 62-Xhp-840462:11 Request METABOLIC PANEL, COMPREHENSIVE (56358)Indication: Diabetes mellitus with diabetic neuropathy On: : Request CBC W/AUTO DIFF WBC (87631)Indication: Diabetes mellitus with diabetic neuropathy On: :11 Request LIPID PANEL (15113)Indication: Hyperlipidemia, unspecified On: : Request TSH (05330)Indication: Hypothyroidism On: :11 Request Thin Prep Pap (30086)Indication: Encounter for screening for cervical cancer (Renamed from Encounter for screening for malignant neoplasm of cervix) On: 36-Tbb-57320:58 Request HgA1C , Office (09658)Indication: Diabetes mellitus with diabetic neuropathy On: :30 Request HPV automatic (23236)Indication: Screening for HPV (human papillomavirus) (Renamed from Encounter for screening for human papillomavirus (HPV)) On: :25 Request LIPID PANEL (97552)Indication: Hypertension, benign On: :19 Request Comments: in three months (approximately) copy to Dr. freire METABOLIC PANEL, COMPREHENSIVE (82902)Indication: Hypertension, benign On: :19 Request T3, TOTAL (TRIDOTHYRONINE) (04866)Indication: Hypothyroidism On: :08 Request T4, TOTAL (54638)Indication: Hypothyroidism On: 4-Lbd-754359:08 Request TSH (THYROID STIMULATING HORMONE) (54352)Indication: Hypothyroidism On: 6-Wmh-775186:58 Request PARATHORMONE (02439)Indication: Hypercalcemia On: :58 Request CALCIUM, IONIZED (79287)Indication: Hypercalcemia On: 8-Ohi-772447:58 Request Metabolic Panel, Basic (49758)Indication: Diabetes mellitus with diabetic neuropathy On: 2-Esp-048071:44 Request Comments: recheck in 2-3 weeks on losartan CALCIFIDIOL (22438) VIT D 25Indication: Vitamin D deficiency disease On: 3-Mhh-943624:33 Request TSH (98436)Indication: Hypothyroidism On: 5-Nup-628701:32 Request MICROALBUMIN: CREATININE RATIO (09481) AND (74906)Indication: Diabetes mellitus with diabetic neuropathy On: 3-Fpb-003293:32 Request METABOLIC PANEL, COMPREHENSIVE (02558)Indication: Diabetes mellitus with diabetic neuropathy On: 0-Lgl-207229:32 Request LIPID PANEL (88125)Indication: Diabetes mellitus with diabetic neuropathy On: 7-Xbt-079466:32 Request CBC with auto diff (81490)Indication: Diabetes mellitus with diabetic neuropathy On: 9-Anc-456184:32 Request PARATHORMONE (36309)Indication: Abnormal blood findings On: :18 Request URINE RUBENS CULTURE-JAYDEN COL COUNT (93859)Indication: Bacteria in urine On: :18 Request LIPID PANEL (01604)Indication: Diabetes mellitus with diabetic neuropathy On: :23 Request CBC WITH MANUAL DIFF (20785)Indication: Melena On: 9-Eqy-082352:25 Request PARATHORMONE (33954)Indication: Hypercalcemia On: : Request CALCIUM, IONIZED (27002)Indication: Hypercalcemia On: : Request CALCIFIDIOL (39848) VIT D 25Indication: Vitamin D deficiency disease On: :20 Request MICROALBUMIN: CREATININE RATIO (26553) AND (92595)Indication: Diabetes mellitus type II, controlled On: :19 Request METABOLIC PANEL, COMPREHENSIVE (63051)Indication: Diabetes mellitus type II, controlled On: :19 Request LIPID PANEL (47264)Indication: Diabetes mellitus type II, controlled On: :19 Request CBC WITH MANUAL DIFF (16966)Indication: Diabetes mellitus type II, controlled On: 9-Ewx-425316:19 Request HgA1C , Office (45465)Indication: Diabetes mellitus type II, controlled On: 7-Ccj-743255:35 Request Comments: 5.6 Hemoglobin Glyclated (HGB A1C) (06101)Indication: Diabetes mellitus type II, controlled On: :35 Request CBC (Auto) (67821)Indication: Abdominal pain, acute, right upper quadrant On: :33 Request PARATHORMONE (02160)Indication: Hypercalcemia On: :33 Request Calcium Serum (75210)Indication: Hypercalcemia On: :33 Request FLURESCNT ANTIB SCRN EA (05180) celiac profileIndication: Abdominal pain, acute, right upper quadrant On: :32 Request IMMUNOASSAY, ANALYTE (NON-INFECT) (21351) celiac profileIndication: Abdominal pain, acute, right upper quadrant On: :32 Request IGA/IGD/IGG/IGM-EACH (42920) celiac profileIndication: Abdominal pain, acute, right upper quadrant On: 17-Oct-20129:32 Request CELIAC DISEASE AB 804831 (09910)Indication: Abdominal pain On: 31-Tfb-968823:17 Request Celiac Disease Comphrehensive Profile (33561)Indication: Abdominal pain On: 49-Zoq-784320:17 Request Troponin I (93413)Indication: Chest pain On: 03-Qay-666136:31 Request CPK MB FRACTION (69357)Indication: Chest pain On: 34-Rfz-345754:31 Request CREATINE KINASE TOTAL ([id number])Indication: Chest pain On: 46-Aed-455377:31 Request TSH (THYROID STIMULATING HORMONE) (87187)Indication: Panic attack On: 66-Qno-516907:27 Request CALCIFEDIOL ([id number])Indication: Vitamin D deficiency disease On: 80-Udc-391959:18 Request TSH ([id number])Indication: Hypothyroidism On: 84-Kwo-094631:16 Request MICROALBUMIN: CREATININE RATIO ([id number]) AND ([id number])Indication: Diabetes mellitus type II, controlled On: 18-Hxx-524198:16 Request METABOLIC PANEL, COMPREHENSIVE ([id number])Indication: Diabetes mellitus type II, controlled On: 46-Aqd-307401:16 Request LIPID PANEL ([id number])Indication: Diabetes mellitus type II, controlled On: 18-Rvx-284012:16 Request CBC WITH MANUAL DIFF ([id number])Indication: Diabetes mellitus type II, controlled On: 82-Uux-954914:16 Request URINE RUBENS CULTURE-IDENTIFICATN (08062)Indication: Urgency of urination On: 62-Opx-611682:14 Request CBC with manual diff ([id number])Indication: Fall from high place, initial encounter On: 22-Jan-20129:51 Request Comments: drawn in office Calcium Serum (03323)Indication: Fall from high place, initial encounter On: 22-Jan-20129:51 Request Comments: drawn in office Metabolic Panel, Comprehensive ([id number])Indication: Fall from high place, initial encounter On: 22-Jan-20129:51 Request Comments: drawn in office TSH ([id number])Indication: Fall from high place, initial encounter On: 22-Jan-20129:50 Request Comments: drawn in office, sent to hospital Calcium Serum ([id number])Indication: Hypercalcemia On: 14-Tci-493474:42 Request Planned Procedures ELECTROCARDIOGRAM, COMPLETE (ECG) On: 27-Apr-2018 Intent ([id number])By: Octavia Nichols DO, DO, Kathleen Flu Vaccine (Quadrivalent) 88117Ux: On: 18-Jan-2018 Intent Octavia Nichols DO, DO, Comments: Lot #[id number]-Rt dltd, IMDose prefilled syringegiven by: Faye GARCIAVIS reviewed and ABN signed Octavia ZLQO-LC-CYHG BEHAVIORAL COUNSELING FOR On: 18-Jan-2018 Intent OBESITY, 15 MINUTES ([id number])By: Octavia Nichols DO, DO, Kathleen Radiology - Wrist - RightBy: Ciesa On: 12-Jan-2018 Intent Aylin GRANT Radiology - Wrist - LeftBy: Ciesa PRODUCT DEVELOPMENT INTERN, On: 12-Jan-2018 Intent Aylin Lucas DIAGNOSTIC BILATERAL MAMMOGRAM On: 10-Dec-2017 Intent ([id number])By: Octavia Nichols DO, DO, Kathleen Ultrasound - Breast - RightBy: On: 07-Dec-2017 Intent Karen Gandhi ELECTROCARDIOGRAM, COMPLETE (ECG) On: 25-Oct-2017 Intent ([id number])By: Octavia Nichols DO Comments: sinus frankie- poor Rwave progression/ no acute chg DO, Octavia DRAIN/INJECT SMALL JOINT OR BURSA On: 07-Oct-2017 Intent ()By: Octavia Nichols DO, DO, Kathleen Kenalog Injection, 10 mgm ([id number])By: On: 07-Oct-2017 Intent Octavia Nichols DO, DO, Comments: 1/2cc kenalog 1/2cc marcaine injection for left thumblot: AAT 6383exp: 12/2018performed by DO Octavia Romano DRAIN/INJECT SMALL JOINT OR BURSA On: 05-Oct-2017 Intent ()By: Octavia Nichols DO Comments: R base thumb trigger and oa DOOctavia Radiology - Chest- PA and LatBy: On: 26-Aug-2017 Intent Octavia Nichols DO, DO, Kathleen Spirometry ([id number])By: Simone HOGUE, On: 26-Aug-2017 Intent Octavia Dennison DO Comments: normal -- will not do inhaler at this time for cough Echo CompleteBy: Octavia Nichols DO On: 02-Jul-2017 Intent Octavia Nichols DO US DOPPLER CAROTID BILATERAL On: 02-Jul-2017 Intent ([id number])By: Octavia Nichols DO, DO, Kathleen Spirometry ([id number])By: Simone HOGUE, On: 20-May-2017 Intent Octavia Dennison DO Comments: normal Wax Currettes ([id number])By: Munira RATLIFF, On: 12-May-2017 Intent Loli Ear Irrigation ([id number])By: Munira RATLIFF, On: 12-May-2017 Intent Loli TDAP VACCINE >7 IM ([id number])By: Simone On: 23-Mar-2017 Intent Octavia HOGUE DO, Kathleen Comments: 5H2H2 lot and exp 04/29/19 lt arm ELECTROCARDIOGRAM, COMPLETE (ECG) On: 23-Mar-2017 Intent ([id number])By: Octavia Nichols DO Comments: nsr no acute cgh Octavia HOGUE Flu Vaccine (Quadrivalent) 05205Ay: On: 13-Jan-2017 Intent Octavia Nichols DO, DO, Comments: Lot:[id number]:11/01/17Dose:0.5mLRoute:IMSite:L DltdGiven By:DAVID signed Octavia PNEUM VAC ADLT/IMUMNOSPR, SBC/INTRM On: 28-Dec-2016 Intent ([id number])By: Octavia Nichols DO Comments: lot: [id number]: 12/18/17ite/route: L del/IMamt: 0.5mLVIS signed when applicableJAY JAY Mejia DO, Kathleen ENPE-OU-APUI BEHAVIORAL COUNSELING FOR On: 28-Dec-2016 Intent OBESITY, 15 MINUTES ([id number])By: Octavia Nichols DO, DO, Kathleen SCREENING DIGITAL TOMOSYNTHESIS OF On: 28-Dec-2016 Intent BREAST ([id number])By: Octavia Nichols DO, DO, Kathleen Radiology - Ankle - LeftBy: Rigo GRANT, On: 02-Dec-2016 Intent Aylin Jules CurettesBy: Octavia Nichols DO On: 26-Oct-2016 Intent Octavia Nichols DO Ear Irrigation ([id number])By: Simone HOGUE, On: 26-Oct-2016 Intent Octavia Dennison DO Comments: R ear gooey lots of wax removed currette used- canals red but not inflamed when done so told her to call if pain develpied DRAIN/INJECT SMALL JOINT OR BURSA On: 10-Jun-2016 Intent ()By: Octavia Nichols DO, DO, Octavia X-RAY OF HAND, THREE VIEWS ([id number])By: On: 08-Jun-2016 Intent Octavia Nichols DO, DO, Comments: attention base of thumb Octavia X-RAY OF HUMERUS, TWO VIEWS ([id number])By: On: 20-Apr-2016 Intent Octavia Nichols DO, DO, Octavia X-RAY OF ELBOW, THREE VIEWS ([id number])By: On: 20-Apr-2016 Intent Octavia Nichols DO, DO, Kathleen Flu Vaccine (Quadrivalent) [id number]: On: 11-Mar-2016 Intent Loli Lombardo LPN CT - Brain/Head (Without Contrast)By: On: 03-Jan-2016 Intent Aylin Sierra CNP Comments: Call results to iesa today if before 3pm if not call to [facility] electronics supervisor KF Solu -Medrol Injection, 125 mg On: 01-Nov-2015 Intent ([id number])By: Aylin Sierra CNP Comments: Lot:[id number]:05/2018Dose:125mgRoute:imSite:r hipGiven By:DAVID signed ATTENDED SLEEP STUDY ([id number])By: Rigo On: 25-Oct-2015 Intent Aylin GRANT Comments: schedule with Dr. Letty AbelttesBy: Rosa Isela Sweet MD On: 30-Sep-2015 Intent Ear Irrigation ([id number])By: Zeferino FLORES, On: 30-Sep-2015 Intent Rosa Iesla Arias Comments: IrrigationSite- L earAmount/Color/Quality - minimal Unable to get all cerumen out at this point due to the cerumen being too hard and patient was getting dizzy. She will go home and use Debrox and then come back to have sprayed agai Pap Smear, Medicare ([id number])By: Zeferino On: 30-Sep-2015 Intent Rosa Isela FLORES BILATERAL MAMMOGRAMS ([id number])By: On: 30-Sep-2015 Intent Rosa Isela Sweet MD Comments: due November 2015 DEXA SCAN AXIAL SKELETON ([id number])By: On: 30-Sep-2015 Intent Rosa Isela Sweet MD Ultrasound - Abdomen CompleteBy: Adelina On: 23-May-2015 Intent Santy FLORES Radiology - Hip - RightBy: Adelina FLORES, On: 23-May-2015 Intent Santy Flu Vaccine (Quadrivalent) 18036Hg: On: 26-Feb-2015 Intent Rosa Isela Sweet MD Comments: Lot:[id number]:11/14/15Dose:0.5mLRoute:IMSite:L DltdGiven By:DAVID signed GASTRIC EMPTYING STUDY ([id number])By: On: 07-Dec-2014 Intent Rosa Isela Sweet MD Ultrasound - ThyroidBy: Zeferino FLORES, On: 20-Nov-2014 Intent Rosa Isela Arias Ultrasound - ThyroidBy: Zeferino FLORES, On: 21-Aug-2014 Intent Rosa Isela Arias MAMMOGRAM, SCREENING, BOTH BREAST On: 22-May-2014 Intent ([id number])By: Rosa Isela Sweet MD GASTRIC EMPTYING STUDY ([id number])By: On: 22-May-2014 Intent Rosa Isela Sweet MD Prevnar 13 ([id number])By: Zeferino FLORES, On: 22-May-2014 Intent Rosa Isela Arias EKG ([id number])By: Rosa Isela Sweet MD On: 22-May-2014 Intent Comments: see scanned document of test done to see results reviewed today with patient Wax CurettesBy: Rosa Isela Sweet MD On: 30-Apr-2014 Intent Ear Irrigation (12013)By: Zeferino FLORES, On: 30-Apr-2014 Intent Rosa Isela Arias IMMUNIZ ADMNIN, 1 VAC, SNGL/COMBO On: 21-Feb-2014 Intent ([id number])By: Rosa Isela Sweet MD Comments: Lot #[id number]-L dltd, IMDose prefilled syringegiven by:ZANE ParraNVIS and ABN signed FLU VAC, SPLIT, >3 YEARS, INTRAMUSC On: 21-Feb-2014 Intent ([id number])By: Rosa Isela Sweet MD Eprescribed prescriptions ([id number])By: On: 19-Sep-2013 Intent Rosa Isela Sweet MD Radiology - Knee - Right - Weight On: 07-Sep-2013 Intent BearingBy: Rosa Isela Sweet MD Eprescribed prescriptions ([id number])By: On: 07-Sep-2013 Intent Rosa Isela Sweet MD Eprescribed prescriptions ([id number])By: On: 24-May-2013 Intent Jackie Mcgee Eprescribed prescriptions ([id number])By: On: 21-Apr-2013 Intent Rosa Isela Sweet MD Eprescribed prescriptions ([id number])By: On: 11-Apr-2013 Intent Jackie Mcgee EKG ([id number])By: Rosa Isela Sweet MD On: 23-Mar-2013 Intent Comments: see scanned document of test done to see results reviewed today with patient Eprescribed prescriptions ([id number])By: On: 23-Mar-2013 Intent Gabriella Velez LPN FLU VAC, SPLIT, >3 YEARS, INTRAMUSC On: 21-Feb-2013 Intent ([id number])By: Gabriella Velez LPN Comments: lot [id number] 2014site/route L magi, IMamt 0.5mlVIS and ABN signed [facility]AL [facility]PRESS[facility] SCREENING, 15 On: 21-Feb-2013 Intent MINUTES (G0444)By: Rosa Isela Sweet MD Nuclear Medicine - Gastric Emptying On: 21-Feb-2013 Intent StudyBy: Rosa Isela Sweet MD ADMINISTRATION OF INFLUENZA VIRUS On: 21-Feb-2013 Intent VACCINE (G0008)By: Gabriella Velez LPN Comments: Lot #[id number]-L dltd, IMDose prefilled syringegiven by:ZANE ParraNVIS and ABN signed Eprescribed prescriptions ([id number])By: On: 21-Feb-2013 Intent Gabriella Velez LPN Eprescribed prescriptions ([id number])By: On: 28-Nov-2012 Intent Aylin Sierra CNP SPECIMEN HANDLING/TRANSPORT ([id number])By: On: 28-Nov-2012 Intent Mary Sarmiento LPN Nuclear Medicine - HIDA w/CPKBy: On: 16-Sep-2012 Intent Jackie Mcgee ELECTROCARDIOGRAM, COMPLETE (ECG) On: 09-Sep-2012 Intent ([id number])By: Aylin Sierra CNP Comments: sinus thythm Nuclear Medicine - HIDA w/CPKBy: On: 06-Sep-2012 Intent Rosa Isela Sweet MD Comments: if us negative Ultrasound - GallbladderBy: Zeferino On: 06-Sep-2012 Intent Rosa Isela FLORES Eprescribed prescriptions ([id number])By: On: 06-Sep-2012 Intent Gabriella Velez LPN Eprescribed prescriptions ([id number])By: On: 22-Aug-2012 Intent Aylin Sierra CNP ELECTROCARDIOGRAM, COMPLETE (ECG) On: 18-Jul-2012 Intent ([id number])By: Gabriella Velez LPN Comments: see scanned document of test done to see results reviewed today with patient Nuclear Stress Test/Stress On: 18-Jul-2012 Intent SPECT/TreadmillBy: Rosa Isela Sweet MD Eprescribed prescriptions ([id number])By: On: 18-Jul-2012 Intent Gabriella Velez LPN Eprescribed prescriptions ([id number])By: On: 04-Mar-2012 Intent Mary Sarmiento LPN SPECIMEN HANDLING/TRANSPORT ([id number])By: On: 04-Mar-2012 Intent Mary Sarmiento LPN Holter Monitor 24 hrsBy: Zeferino FLORES, On: 25-Jan-2012 Intent Rosa Isela Arias Echo CompleteBy: Rosa Isela Sweet MD On: 25-Jan-[address] - Brain/HeadBy: Aylin Sierra CNP On: 22-Jan-2012 Intent Comments: will ask to do in ER ADMINISTRATION OF INFLUENZA VIRUS On: 14-Jan-2012 Intent VACCINE (G0008)By: Bernadine Slaughter FLU VAC, SPLIT, >3 YEARS, INTRAMUSC On: 14-Jan-2012 Intent ([id number])By: Bernadine Slaughter DXA, BONE DENSITY, AXIAL SKELETON On: 09-Nov-2011 Intent ([id number])By: Rosa Isela Sweet MD Comments: loss of height, estrogen def. MAMMOGRAM, SCREENING, BOTH BREASTS On: 09-Nov-2011 Intent ([id number])By: Rosa Isela Sweet MD EKG ([id number])By: Rosa Isela Sweet MD On: 09-Nov-2011 Intent Comments: see scanned document of test done [...] Patient Instructions Indication: Dizziness and giddiness Encounters Review On: 27-Apr-2018 9:27 Encounter Reason: Follow up for chronic medical issues - The patient feels well with minor complaints, has decreased energy level and is sleeping well. Patient has been compliant with instructions. Current medication use : no side effects and compliant with dosing regimen. Patient sleeps 7 hours per night. Impact of disease: emotional impact-mild. Nutrition: balanced diet and supplemental vitamins. The medical issues th e patient is following up for include blood sugar issues, cardiac issues, depression, high blood pressure and other (DDD, tardive dyskensia, fatty liver, hypercalcemia, hyperparathyroid, hearing loss, macular degeneration).Encounter Diagnosis: BMI 31.0-31.9,adult, Nonsmoker, Musculoskeletal strain, Muscle spasm, Hypothyroidism, Vitamin D deficiency disease, Hyperlipidemia, unspecified, Hypertension, benign, Type II diabetes mellitus, well controlled [facility] Office Visit On: 14-Apr-2018 12:38 Encounter Reason: Flank Pain - This condition occurred without any known injury. The injury involved the left flank. This occurred 1 week(s) ago at home. Symptoms include flank pain, back pain and fever (lostine reporte End: 14-Apr-2018 13:56 d 101 degrees [...] patient does not have durable power of trade mark attorney or living will. The aruna ent [...] the patient is following up for inc gurvinder All identified problems below, blood sugar issues, [...] for Tdap vaccination (Renamed from Need for ynlwlriflp-mwxvrnv-cowbtegle (Tdap) vaccine, adult/adolescent) [facility] Office [...] patient does not have durable power of trade mark attorney or living will. The patient has noticed feeling emptiness in life , feeling helpless and having problems with memory than others. Other providers contributing to the patient's care are personal care attendant and other:.Encounter Diagnosis: Current nonsmoker (Renamed from [...] care from office visit to ER to [facility] unit secondary to halluci End: 05-Feb-2016 11:42 nations She was admitted to the geropsychiatric unit then trasferred to [address] seen by psychiatristJonathon arreola continued but low dose Zyprexa 2.5mg at bedtime for symptoms of psychosis and mood stabi lization . Seen by Dr Nga Gustafson MD of [facility] physicians to follow up with Dr. Cline ??on [id number] diagnosis Bipolar mixed with psychotic features Metformin [...] up ER: fell End: 25-Oct-2015 13:[address] [facility] October [address] [facility]. Feeling depressed and falling asleepReports that tells [...] up ER: fell End: 22-Oct-2015 11:[address] [facility] October 16 after slipping on [facility] Diagnosis: Falling, Excessive daytime sleepiness, Abnormal TSH [...] patient does not have durable power of trade mark attorney or living will. The patient has noticed dissatisfaction with life, dropping activities and interests, feeling emptiness in life, poor spirits most of time, feeling something bad will happen and having problems with memory than others. Other providers contributing to the patient's care are gas trologist (Dr. Montero ) and other: (endo: Dr. Mitchell). Note for Annual Medicare Exam: pt has onsite case manager to help with some of the ADL's.Encounter [...] started new med last ??wednesday, started by transcription typist, ??rash under breast bilateral and chest improving [...] started new med last wednesday, started by transcription typist, rash under breast bilateral and chest. Encounter [...] Nutrition: balanced diet and supplemental vitamins. 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
--- OUTSIDE RECORDS SUMMARY | 2018-08-03 18:50 | XMS RPT_ITS | Continuity of Care Document ---
:1945 Author Organization [facility] Address [address] [place] [address] Phone Care Team Providers Name Role Phone Octavia Nichols DO Unavailable Alonso FLORES, Dr. Myla Arias Unavailable Dr. Fredy Cox Unavailable Jeana Juarez MD Unavailable [facility], [facility] Unavailable Ruma FLORES, Jaron Meléndez Unavailable Radha Benítez Unavailable Ashlee FLORES, Haseeb Mcelroy Unavailable Vijay Reece Unavailable [facility]available [facility] Unavailable Kylah FLORES, Cruz Cook Unavailable GAUDENCIO Bowie Unavailable Unavailable Rigo GRANT, Aylin Lucas Unavailable Mae Quinones Unavailable Unavailable Reshma Zuniga Unavailable Unavailable Unavailable Unavailable Problems Name Dates Details Abnormal mammogram (R92.8, 793.80) Status: Active Abnormal TSH (R79.89, 790.6) Status: Active Abnormal urine (R82.90, 791.9) Status: Active Accidental fall, initial encounter (W19.XXXA, E888.9) Status: Active Acute recurrent sinusitis, unspecified location (J01.91, 461.9) Status: Active 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 see Dr. 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 parkinsons vs drug interaction will be discussing with Psych nurse and neurologist recent fall at [facility] Status: Active Fatty liver (K76.0, 571.8) Status: [...] for Tdap vaccination (Renamed from Need for qasvpdhkyz-jgnugfj-cvzsqfonz (Tdap) vaccine, adult/adolescent) (Z23, V06.1) Status: Active [...] being told to dig with thoughts of sikhism overtones Status: Active Pain of hand and [...] diabetes mellitus, well controlled (E11.9, 250.00) Comments: [facility] 09/29/17 5.9 well controlled Status: Active [...] Quantity: 180 {Tablet} Refills: 7 Ordered:29-Sep-2017 Yany iNchols DO, DO, Kathleen Start : 29-Sep-2017 Active Comments:pt takes as neededpsych prescribes CITRACAL SLOW RELEASE, 324-41-764ED-MG-UNIT (Oral Tablet Extended Release 24 Hour) 2 [...] MG Oral Tablet 1 (one) Tablet Tablet qd for 0 days Quantity: 10 [...] Start : 23-May-2015 End : 04-Jun-2015 Inactive Comments:[facility] sent it in for her per last emr msg but done see in chart but patient states she has it ATIVAN, 0.5MG (Oral Tablet) 1 Tablet q6-8 hrs prn for anxiety for 0 days Quantity: 20 {Tablet} Refills: 0 Ordered:17-Oct-2012 HOME Byrne Start : 15-Sep-2012 End : 17-Oct-2012 Inactive Comments:called to [facility] 09-15-12 erussell BACTRIM DS, 800-160MG (Oral Tablet) 1 Tablet bid for 7 days Quantity: 14 {Tablet} Refills: 0 Ordered:08-Dec-2012 Everardo Jackie Start : 05-Dec-2012 End : 08-Dec-2012 Inactive [...] days Quantity: 14 {Tablet} Refills: 0 Ordered:28-Nov-2012 Torsten RATLIFFMary Start : 14-Nov-2012 End : 28-Nov-2012 Inactive CITALOPRAM HYDROBROMIDE, 20MG (Oral Tablet) 1 qd (20 MG) End : 30-Sep-2012 Inactive Comments:d/c per [facility] [place] Delsy Cough/Cold Daytime 0-81-611-325 MG/10ML Oral Liquid 5 Milliliter Milliliter q6 [...] 360 days Quantity: 30 {Tablet} Refills: 3 Ordered:7-Brennen-2014 HOME Byrne Start : 03-Feb-2013 End : 20-Nov-2013 Inactive Comments:Lazara Pradhan [facility] at [facility] LORATADINE, 10MG (Oral Tablet) 1 [...] Quantity: 30 {Capsule} Refills: 0 Ordered:11-Mar-2016 Rigo GRANTAylin Start : 05-Feb-2016 End : 06-Mar-2016 Inactive [...] 14-Jun-2014 Inactive NASONEX, 50MCG/ACT (Nasal Suspension) 1 [place]ppenish(s) each nostril daily for 0 days Quantity: 1 {Suspension} Refills: 0 Ordered:17-Oct-2012 HOME Byrne Start : 26-Nov-2011 End : 17-Oct-2012 Inactive Ccngajbe-Olawhxtuu-WJ 1 % Otic Solution 1 (one) Metric [...] Quantity: 6 {Tablet} Refills: 0 Ordered:04-Mar-2012 Rigo GRANTAylin Start : 04-Mar-2012 End : 06-Mar-2012 Inactive Sorbitol 70 % Oral Solution 30 ml two times daily for 30 days Quantity: 1 {QS} Refills: 0 Ordered:11-Mar-2016 Rigo RUDYAylin Start : 05-Feb-2016 End : 06-Mar-2016 Inactive [...] daily for 30 days Refills: 0 Ordered:03-Dec-2015 Angelinabeth RUDYAylin Start : 18-Oct-2015 End : 17-Nov-2015 Inactive [...] End : 21-Feb-2014 Discontinued Comments:re started per [facility] 09-30-12 AUGMENTIN, 875-125MG (Oral Tablet) 1 (one) [...] days Quantity: 60 {Tablet} Refills: 3 Ordered:05-Feb-2016 Loil Lombardo LPN Start : 25-Oct-2015 End : [...] seen a surgeon Dr. Sinan Stark in [place] Status: Inactive as of 28-Dec-2016 Allergic rhinitis [...] symptoms of demenitia. told problem is registrationDr. Jose, insurance refuse pay nueropsych testing. Status: Inactive [...] Summary (1) Result: Comments: See Note; NOTES: [facility] [address] [place] [address] Fax REHABILITATION SERVICES DISCHAR GE SUMMARY MR#: [id number] Acct: [id number] Name: JOSELUIS MCKAY Rep #: [id number] : 1945 73 From: Samy Johnson PT, Cert. 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 Goal Progress: Goal Met Goal 5:: Pt will be independent with HEP to sustain gains made in the clinic. Goal Progress: Goal Met - Plan Plan: D/C - D/C Information Dischar Comments: MAY TRY MASSAGE ON OWN If there are questions or concerns regarding this patient's physical therapy, please feel free to call me at [phone]. Thank you for the referral of this patient. Sincerely, Samy Johnson PT, <Electronically signed by Samy Johnson PT, Cert. T, [facility]> 03/16/18 0954 CC: Octavia Nichols DO VEDA Signed 03-Mar-2018 Operative Report - Endoscopy Result: Comments: See Note; NOTES: [facility] Medical Records Department [address] [place] [address] Operative Report - Endoscopy MR#: [id number] Acct: [id number] Name: Demar MCKAY Rep #: [id number] : 1945 73 From: Cruz Montero MD PCP: Octavia Nichols DO Status: REG [facility] Patient Name: Joseluis Mckay Procedure Date: 03/03/2018 [...] for surveillance. Procedure Code(s): --- Professional --- 40469, Colonoscopy, flexible; diagnostic, including collection of specimen(s) by brushing or washing, when performed (separate procedure) 08127, 59, Moderate sedation services provided by the same physician or other qualified health healthcare project manager performing the diagnostic or therapeutic service that [...] congenital malformations of intestine CPT copyright 2017 [employer]. All rights reserved. The codes documented in this report are preliminary and upon code enforcement supervisor review may be revised to meet current compliance requirements. Romeo Montero MD 03/03/2018 11:33:51 AM This report has been signed electronically. Number of Addenda: 0 Note Initiated On: 03/03/2018 11:00 AM 03/03/18 1134 Date Cruz Montero MD Cosign Signature: Date (if indicated) CC: Octavia Nichols DO; Cruz Montero MD Date Dictated: 03/03/18 1100 Date Transcribed: Shared Services Manager: SENIA Signed 03-Mar-2018 History and Physical Exam Result: Comments: See Note; NOTES: [facility] Medical Records Department [address] [place] [address] History and Physical 03/03/18 1055 MR#: [id number] Acct: [id number] Name: JOSELUIS CRAFT Rep #: [id number] : 1945 73 From: Cruz Montero MD PCP: Octavia Nichols DO Status: REG [facility] Y Location: [place] [address] Problem List (1) Personal history of colonic [...] PT (1) Result: Comments: See Note; NOTES: [facility] 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 [...] do not hesitate to contact me at [phone] by phone or if you have questions or concerns regarding this new plan of care! Sincerely, Samy Johnson PT, <Electronically signed by Samy Johnson PT, Cert. MDT, OCS> 02/23/18 1449 CC: Gricel Nichols DO VEDA Signed For Medicare only, by signing this I certify the plan of care. Physicians Signature Date 24-Jan-2018 Re-Evaluation - PT (1) Result: Comments: See Note; NOTES: [facility] [address] [place] [address] Fax [facility]#: [id number] Acct: [id number] Name: JOSELUIS MCKAY Rep #: [id number] : 1945 73 From: Samy Johnson PT, Cert. MDT, OCS Referring Dr.: Octavia Saldivar atus: REG RCR Insurance: [employer] MEDICAID Octavia Nichols, It has been my pleasure to treat JOSELUIS MCKAY over the last 15 visits for Cervical neck pain, cervical muscle spasm. 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 [...] do not hesitate to contact me at [phone] by phone or if you have questions or concerns regarding thi s new plan of care! Sincerely, Samy Johnson PT, <Electronically signed by Samy Johnson PT, Cert. MDT, OCS> 01/24/18 2859 CC: Octavia Nichols DO CABRERAA Signed For Medicare only, by signing this I certify the plan of care. Physicians Signature Date 13-Jan-2018 Emergency Department Summary Result: Comments: See Note; NOTES: [facility] Medical Records Department [address] [place] [address] Emergency Department Summary 01/13/18 2142 MR#: [id number] Acct: [id number] Name: JOSELUIS MCKAY Rep #: [id number] : 1945 73 From: Susie Maki DO PCP: Octavia Nichols DO Status: REG ER - ER Visit Summary Date of Service: 01/13/18 Chief Complaint: [Addendum to chloe ramirez dictation] History of Present Illness: The patient [...] triquetral fracture] This note was generated with Acucela[employer] software. It may contain incorrect words, spelling, [...] your Primary Care Provider. Call [facility] ([phone]) or repo rt to the closest Emergency Room. Call 911 if necessary. 01/13/182143 <Electronically signed by Susie Maki DO> Date Susie Maki DO Cosigner Signature (If Indicated): Date CC: Octavia Nichols DO 13-Jan-2018 Discharge Instruction Result: Comments: See Note; NOTES: [facility] Medical Records Department [address] [place] [address] Discharge Instruction 01/13/182131 MR#: [id number] Acct: [id number] Name: ISAURABRIANNA JOSELUIS HENSLEY Rep #: [id number] : 1945 73 From: Susie Maki DO [...] your Primary Care Provider. Call [facility] ([phone]) or report to the closest Emergency Room. Call 911 if nec essary. 01/13/182132 <Electronically signed by Susie Maki DO> Date Susie Maki DO Cosigner Signature (If Indicated): Date ____ CC: Octavia Nichols DO 13-Jan-2018 Emergency Department Summary Result: Comments: See Note; NOTES: [facility] Medical Records Department [address] [place] [address] Emergency Department Summary 01/13/189 MR#: [id number] Acct: [id number] Name: JOSELUIS MCKAY Rep #: [id number] : 1945 73 From: Susie Maki DO [...] wrist sprain] This note was generated with [employer] dictation software. It may contain incorrect words, [...] your Primary Care Provider. Call [facility] ([phone]) or report to the closest Emergen cy Room. Call 911 if necessary. 01/13/182 <Electronically signed by Susie Maki DO> Date Susie Maki DO Cosigner Signature (If Indicated): Date CC: Octavia Nichols DO 13-Jan-2018 Wrist min 3 Views Result: Comments: See Note; NOTES: [facility] Imaging Services [address] [place] [address] Wrist min 3 Views MR#: [id number] Acct: [id number] Name: JOSELUIS MCKAY Rep #: [id number] : 1945 F 73 From: Jonny Sandy MD PCP: Octavia Nichols DO Status: PRE ER Study: Wrist min 3 Views Date of Exam: 01/13/18 Exam# [id number] Ordering Dr: Provider, Ed P. STUDY: X-RAY [...] CC: ED PHYSICIAN PROVIDER; Octavia Nichols DO Shared Services Manager: Signed 12-Jan-2018 Wrist min 3 Views Result: Comments: See Note; NOTES: [facility] Imaging Services [address] [place], [place] [address] [place] [address] Wrist min 3 Views MR#: [id number] Acct: [id number] Name: JOSELUIS MCKAY Rep #: [id number] : 1945 F 73 From: Suleman Chan MD PCP: Octavia Nichols DO Status: REG CLI Study: Wrist min 3 Views Date of Exam: 01/12/18 Exam# [id number] Ordering Dr: Aylin Sierra STUDY: X-RAY - [...] Suleman Chan MD at 11:10 EDT Tel [phone], Service support , CC: Aylin Sierra TASSEL SNIPPER; Octavia Nichols DO Shared Services Manager: Signed 24-Dec-2017 Re-Evaluation - PT (1) Result: Comments: See Note; NOTES: [facility] Physical Therapy [address] [place] [address] Fax REEVALUATION / MEDICARE RECERTI [facility] PHYSICAL THERAPY MR#: [id number] Acct: [id number] Name: JOSELUIS MCKAY Rep #: [id number] : 1945 72 From: Samy Johnson PT, Cert. T, OCS Referring Dr.: Octavia Saldivar atus: REG [...] POSTURE,ROUNDED SHOULDERS. NEURO: DENIES PARATHESIA/TINGLING ,REFLEXES C5-6-7 /. MMT:BUE 4/5,4-/5 SHOULDER. CERVICAL R OM: flexion [...] will report ability to retu rn to all source collection manager such as mowing and vacuuming without limitation. [...] do not hesitate to contact me at [phone] by phone or if you have questions or concerns regarding this new plan of care! Sincerely, Samy Johnson PT, <[facility] signed by Samy Johnson PT, Cert. MDT, [facility]> 12/24/17 1629 CC: Octavia Nichols DO VEDA Signed For Medicare only, by signing this I certify the plan of care. Physicians Signature Date 10-Dec-2017 DIAG MAMM W/CAD, BILAT Result: Comments: See Note; NOTES: [facility] Imaging Services [address] [place] [address] DIAG MAMM W/CAD, BILAT MR#: [id number] Acct: [id number] Name: JOSELUIS MCKAY Rep #: [id number] : 1945 F 72 From: Jonny Lovelace MD PCP: Octavia Nichols DO Status: REG CLI Study: DIAG MAMM W/CAD, BILAT Date of Exam: 12/10/17 Exam# [id number] Ordering Dr: Karen Gandhi MAMMO GRAPHY - BILATERAL SCREENING REASON FOR [...] delay biopsy of a clinically suspicious abnormality. [id number] Electronically Signed: Kamar Lovelace MD at 14:52 EDT , Serv ice support , CC: GEETA Gandhi; Octavia Nichols DO Shared Services Manager: Signed 25-Nov-2017 Inital Evaluation (1) - PT Result: Comments: See Note; NOTES: [facility] [address] [place] [address]. 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 [...] to be FAXED BACK to us at [phone] for Medicare purposes. Please let me know if there are questions or concerns regarding this plan of care. Physician Signature: Date:__ <Electronically signed by Samy Johnson PT, Cert. PORTIA, OCS> 11/25/17 5531 CC: Octavia Nichols DO VEDA Signed For Medicare only, by signing th is I certify the plan of care. Physicians Signature Date 21-Nov-2017 Emergency Department Summary Result: Comments: See Note; NOTES: [facility] Medical Records Department [address] [place] [address] Emergency Department Summary 11/21/17 1125 MR#: [id number] Acct: [id number] Name: JOSELUIS MCKAY Rep #: [id number] : 1945 72 From: Bernadine Vargas MD [...] neck strain This note was generated with [employer] dictation software. It may contain incorrect words, [...] your Primary Care Provider. Call [facility] ([phone]) or report to the closest Emergency Room. Call 911 if necessa ry. 11/21/17 6511 <Electronically signed by Bernadine Vargas MD> Date Bernadine Vargas MD Cosigner Signature (If Indicated): Date CC: Octaviaeros Nichols 21-Nov-2017 Discharge Instruction Result: Comments: See Note; NOTES: [facility] Medical Records Department [address] [place] [address] Discharge Instruction 11/21/17 1222 MR#: [id number] Acct: [id number] Name: JOSELUIS HURLEY Rep #: [id number] : 1945 72 From: Bernadine Vargas MD [...] your Primary Care Provider. Call [facility] ([phone]) or report to the closest Emergency Room. Call 911 if necessary. 1223 <Electronically signed by Bernadine Vargas MD> Date Bernadine Vargas MD Cosigner Signature (If Indicated): Date _ CC: Octaviaeros Nichols 21-Nov-2017 Brain/Head without Contrast Result: Comments: See Note; NOTES: [facility] Imaging Services [address] [place] [address] Brain/Head without Contrast MR#: [id number] Acct: [id number] Name: JOSELUIS MCKAY p #: [id number] : 1945 F 72 From: Trish Mosre MD PCP: Octavia Nichols DO Status: REG Study: Brain/Head without Contrast Date of Exam: 11/21/17 Exam# [id number] Ordering Dr: Bernadine Vargas MD STUDY: CT [...] CC: Bernadine Vargas MD; Octavia Nichols DO Shared Services Manager: Signed 21-Nov-2017 Spine Cervical without Contras Result: Comments: See Note; NOTES: [facility] Imaging Services [address] [place] [address] Spine Cervical without Contras MR#: [id number] Acct: [id number] Name: JOSELUIS MCKYA Rep #: [id number] : 1945 F 72 From: Trish Moser MD PCP: Octavia Nichols DO Status: REG ER Study: Spine Cervical without Contras Date of Exam: 11/21/17 Exam# [id number] Ordering Dr: Uzair Vargas MD STUDY: CT [...] at 11:57 EDT Tel , Service support [phone], CC: Bernadine Vargas MD; Octavia Nichols DO Shared Services Manager: Signed 27-Aug-2017 Chest PA and Lateral Result: Comments: See Note; NOTES: [facility] Imaging Services [address] [place] [address] Chest PA and Lateral MR#: [id number] Acct: [id number] Name: JOSELUIS MCKAY Rep #: : 1945 F 72 From: Katie Hopkins MD PCP: Octavia Nichols DO Status: REG CLI Study: Chest PA and Lateral Date of Exam: 08/27/17 Exam# [id number] Ordering Dr: Octavia Nichols DO XR Chest [...] ervice support , CC: Octavia Nichols DO Shared Services Manager: Signed 02-Aug-2017 12 Lead Electrocardiogram Result: Comments: See Note; NOTES: [facility] Cardiovascular Services [address] [place] [address] 12 Lead EKG 07/28/17 1143 MR#: [id number] Acct: [id number] Name: JOSELUIS MCKAY Rep #: [id number] : 1945 72 From: Haseeb Tinoco MD [...] normal ECG Confirmed by HASEEB TINOCO ([id number]), newspaper photo editor KATIE MELO ([id number]) on 08/02/2017 2:06:31 PM Referred By: Octavia Nichols Confirmed By:HASEEB TINOCO 08/02/17 1406 Date Haseeb Tinoco MD CC: Octavia Nichols DO; Kristian Sauceda MD Signed 28-Jul-2017 Emergency Department Summary Result: Comments: See Note; NOTES: [facility] Medical Records Department [address] [place] [address] Emergency Department Summary 07/28/17 1214 MR#: [id number] Acct: [id number] Name: JOSELUIS MCKAY Rep #: [id number] : 1945 72 From: Kristian Sauceda MD [...] sensation to light touch throughout. N ormal jmokhk-lnsj-kgbucj and jhqd-ojay-iete bilaterally. Normal gait. General: A AND O [...] should she be sent over to the [facility]. She will be discharged to there. Disposition: To home in improved and stable condition. Impression: 1. Transient visual changes. This note was generated with [employer] dictation software. It may contain i ncorrect [...] problems, contact your Primary Care Provider. Call [facility] ([phone]) or report to the closest Emergency Room. Call 911 if necessary. 07/28/17 1711 & #60;Electronically signed by Kristian Sauceda MD> Date Kristian Sauceda MD Cosigner Signature (If Indicated): Date CC: Octavia Simone HOGUE 28-Jul-2017 Brain/Head without Contrast Result: Comments: See Note; NOTES: [facility] Imaging Services [address] [place] [address] Brain/Head without Contrast MR#: [id number] Acct: [id number] Name: JOSELUIS MCKAY Jazmyne p #: [id number] : 1945 F 72 From: Suleman Chan MD PCP: Octavia Nichols DO Status: REG ER Study: Brain/Head without Contrast Date of Exam: 07/28/17 Exam# [id number] Ordering Dr: Sa milan Sauceda MD STUDY: [...] Suleman Chan MD at 11:36 EDT Tel [phone], Service support , CC: Octavia Nichols DO; Kristian Sauceda MD Shared Services Manager: Signed 22-Jul-2017 Echocardiogram Complete Result: Comments: See Note; NOTES: [facility] Cardiovascular Services [address] [place] [address] Echo Complete 07/22/17 0855 MR#: [id number] Acct: [id number] Name: MARY MCKAY RA Rep #: [id number] : 1945 72 From: Haseeb Tinoco MD Attending Dr: Octavia Nichols DO Status: REG CLI Ordering Dr: Octavia Nichols DO Date: 07/22/17 Location: [facility] Sex: F C Admitted: Shwetha son For [...] Dictated: 07/22/17 0855 Date Transcribed: 07/22/17 1510 Shared Services Manager: Signed 14-Jul-2017 Carotid Duplex Ultrasound Result: Comments: See Note; NOTES: [facility] Cardiovascular Services [address] [place] [address] Carotid Duplex Ultrasound 07/13/1719 MR#: [id number] Acct: [id number] Name: JOSELUIS YADAV Rep #: [id number] : 1945 72 From: Finesse Barrios MD [...] the left vertebral artery. Procedure Carotid Duplex 97456. The exam was diagnostic. Exam performed in department. Interpretation Summary Moderate (50-69%) stenosis right extracranial internal carotid. No significant atherosclerotic plaque or stenosis noted in the left internal carotid artery. Flow within the vertebral arteries is antegrade bilaterally. Ordering Physician: Octavia Nichols Performed By: Chilango Caballero RVRicardo 07/14/172027 Date Finesse Barrios MD CC: Octavia Nichols DO Date Dictated: 07/13/17918 Date Transcribed: 07/14/172027 Shared Services Manager: Signed 12-Jan-2017 Operative Report Result: Comments: See Note; NOTES: [facility] Medical Records Department [address] [place] [address] Operative Report 01/12/17 1150 MR#: [id number] Acct: [id number] Name: Demar MCKAY Rep #: [id number] : 1945 72 From: Cruz Montero MD PCP: Octavia Nichols DO Status: REG CLI Y Location: [place] [address] Report of Operation Date of Procedure: 01/12/17 [...] was [place] at the base for ondina cheney. Photographs were obtained. The polyp was retrieved. [...] Department Summary Result: Comments: See Note; NOTES: [facility] Medical Records Department [address] [place] [address] Emergency Department Summary 01/05/17 1846 MR#: [id number] Acct: [id number] Name: JOSELUIS MCKAY Rep #: [id number] : 1945 71 From: Haseeb Hyatt DO [...] Primary Ca re Provider. Call [facility] ([phone]) or report to the closest Emergency Room. Call 911 if necessary. 01/05/17 8927 <Electronically signed by Haseeb Hyatt DO> Date ____ Haseeb Hyatt DO Cosigner Signature (If Indicated): Date CC: Octavia Nichols DO 05-Jan-2017 SCREENING MAMM (CAD), BILAT Result: Comments: See Note; NOTES: [facility] Imaging Services [address] [place] [address] SCREENING MAMM (CAD), BILAT MR#: [id number] Acct: [id number] Name: JOSELUIS MCKAY p #: [id number] : 1945 F 71 From: Jose Armas MD PCP: Octavia Nichols DO Status: REG CLI Study: SCREENING MAMM (CAD), BILAT Date of Exam: 01/05/17 Exam# [id number] Ordering Dr: Evan Nichols DO MAMMOGRAPHY - [...] delay biopsy of a clinically suspicious abnormality. [id number] Electronically Signed: Jose Armas MD at 14:49 EDT Tel , Service support , CC: Octavia Nichols DO Shared Services Manager: Signed 02-Dec-2016 Ankle min 3 Views Result: Comments: See Note; NOTES: [facility] Imaging Services [address] [place] [address] Verdana 4d Ankle min 3 Views MR#: [id number] Acct: [id number] Name: ANGAYDENJOSELUIS Call Romeo ep #: [id number] : 1945 F 71 From: Jose Reno MD PCP: Octavia Nichols DO Status: REG CLI Study: Ankle min 3 Views Date of Exam: 12/02/16 Exam# [id number] Ordering Dr: Aylin Sierra STUDY: X-R AY [...] , CC: Aylin Sierra; Octavia Nichols DO Shared Services Manager: Signed 08-Jun-2016 Hand Min 3 Views Result: Comments: See Note; NOTES: [facility] Imaging Services [address] [place] [address] Verdana 4d Hand Min 3 Views MR#: [id number] Acct: [id number] Name: JOSELUIS MCKAY Jazmyne p #: [id number] : 1945 F 71 From: Suleman Chan MD PCP: Octavia Nichols DO Status: REG CLI Study: Hand Min 3 Views Date of Exam: 06/08/16 Exam# [id number] Ordering Dr: Octavia Nichols DO STUDY: X-RAY [...] Suleman Chan MD at 14:44 EST Tel [phone], Service support [phone], CC: Octavia Nichols DO Shared Services Manager: Signed 20-Apr-2016 Elbow min 3 Views Result: Comments: See Note; NOTES: [facility] Imaging Services [address] [place] [address] Verdana 4d Elbow min 3 Views MR#: [id number] Acct: [id number] Name: ANGAYDENJOSELUIS Jakub Walters ep #: [id number] : 1945 F 71 From: Gabo Brito MD PCP: Octavia Nichols DO Status: REG CLI Study: Elbow min 3 Views Date of Exam: 04/20/16 Exam# [id number] Ordering Dr: Octavia Nichols DO STUDY: X-RAY [...] MD at 23:25 EST , Service support [phone], CC: Octavia Nichols DO Shared Services Manager: Signed 20-Apr-2016 Humerus min 2 Views Result: Comments: See Note; NOTES: [facility] Imaging Services [address] [place] [address] Verdana 4d Humerus min 2 Views MR#: [id number] Acct: [id number] Name: ISAURABRIANNAAYDENJOSELUIS Jakub Rep #: [id number] : 1945 F 71 From: Gabo Brito MD PCP: Octavia Nichols DO Status: REG CLI Study: Humerus min 2 Views Date of Exam: 04/20/16 Exam# [id number] Ordering Dr: Octavia Nichols DO STUDY: X-RAY [...] MD at 23:28 EST , Service support [phone], Fax CC: Octavia Nichols DO Shared Services Manager: Signed 27-Jan-2016 12 Lead Electrocardiogram Result: Comments: See Note; NOTES: [facility] Cardiovascular Services [address] [place] [address] 12 Lead EKG 01/24/16 160 MR#: [id number] Acct: [id number] Name: JAKE MCKAY Rep #: [id number] : 1945 71 From: Sebastian Valenzuela MD [...] sinus rhythm Norm al ECG Confirmed by SEBASTIAN VALENZUELA MD ([id number]), newspaper photo editor KATIE MELO ([id number]) on 01/27/2016 1:21:19 PM Referred By: Confirmed By:SEBASTIAN VALENZUELA MD 01/27/16 1321 Date ____ Sebastian Valenzuela MD CC: Aylin Sierra Date Dictated: 01/24/16 1601 Date Transcribed: 01/24/16 160 Shared Services Manager: Signed 27-Jan-2016 Emergency Department Summary Result: Comments: See Note; NOTES: [facility] Medical Records Department [address] [place] [address] Emergency Department Summary MR#: [id number] Acct: [id number] Name: JOSELUIS MCKAY Rep #: [id number] : 1945 71 From: Kristian Sauceda MD [...] arranged for her to be transferred to [facility]. DISPOSITION: Transferre d in stable condition. IMPRESSION: Acute naif. Kristian Sauceda MD C C: Aylin Sierra T: [facility] JOB: [id number] 01/27/16 0044 <Electronically signed by Kristian Sauceda MD> Date Kristian Sauceda MD Cosigner Signature (If Indicated): Date CC: Aylin Sierra Date Dictated: 01/24/161613 Date Transcribed: 01/24/161613 Shared Services Manager: Signed 03-Jan-2016 Brain/Head without Contrast Result: Comments: See Note; NOTES: [facility] Imaging Services [address] [place] [address] Verdana 4d Brain/Head without Contrast MR#: [id number] Acct: [id number] Name: JOSELUIS MCKAY Rep #: [id number] : 1945 F 70 From: Suleman Chan MD PCP: Aylin Sierra Status: REG CLI Study: Brain/Head without Contrast Date of Exam: 01/03/16 Exam# [id number] Ordering Dr: Aylin Sierra STUDY: CT BRAIN [...] Suleman Chan MD at 11:16 EDT Tel [phone], Service support [phone], Fax CC: Aylin Sierra Shared Services Manager: Signed 19-Oct-2015 Emergency Department Summary Result: Comments: See Note; NOTES: [facility] Medical Records Department [address] [place] [address] Emergency Department Summary MR#: [id number] Acct: [id number] Name: JOSELUIS MCKAY Rep #: [id number] : 1945 70 From: Rogelio Marcial MD [...] was apparently at Dr. 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 She accordingly got turned out for [...] the patient may be overmedicated as well. Westfield scale was negative and they did say [...] at 3 a.m. Acc ording to the slope runner, her blood pressure were reportedly low, but [...] time. No facial droop. N o abnormal kmflxl-fc-xoae. She has normal oxqh-df-lutw, no drift. Negative Babinski. She does appear [...] Terrell Coley C: Rosa Isela Sierra T: NTS JOB: [id number] 10/19/15 2306 &am p;#60;Electronically signed by Rogelio Marcial MD> Date Rogelio Marcial MD Cosigner Signature (If Indicated): Date CC: Aylin Sierra; Rosa Isela Sweet MD Date Dictated: 10/17/151707 Date Transcribed: 10/17/151707 Shared Services Manager: Signed 19-Oct-2015 Emergency Department Summary Result: Comments: See Note; NOTES: [facility] Medical Records Department [address] [place] [address] Emergency Department Summary MR#: [id number] Acct: [id number] Name: JOSELUIS MCKAY Rep #: [id number] : 1945 70 From: Man Salamanca MD PCP: Aylin Sierra Status: DEP ER DATE OF SERVICE: 10/19/2015 CHIEF COMPLAINT: Fall. HISTORY OF PRESENT ILLNESS : A 70-year-old female who slipped on some salt on the floor at [facility], injuring her head. She is right hand [...] Tejada C: Aylin Sierra T: VIKY JOB: [id number] 10/19/15 1838 <Electronically signed by Man Salamanca MD> Date Man Salamanca MD Cosigner Signature (If Indicated): Date CC: Aylin Sierra Date Dictated: 10/19/15 144 Date Transcribed: 10/19/151441 Shared Services Manager: Signed 19-Oct-2015 Discharge Instruction Result: Comments: See Note; NOTES: [facility] Medical Records Department [address] [address] Discharge Instruction 10/19/151442 MR#: [id number] Acct: [id number] Name: JOSELUIS MCKAY Rep #: [id number] : 1945 70 From: Man Salamanca MD [...] problems, contact your doctor. Call [facility] ([phone]) or report to the closest Emergency Room. Call 911 if necessary. 10/19/15 1443 <Electronically signed by Man Salamanca MD> Date Man Salamanca MD Cosigner Signature (If Indicated): Date CC: Aylin Sierra 19-Oct-2015 Brain/Head without Contrast Result: Comments: See Note; NOTES: [facility] Imaging Services [address] [place] [address] Verdana 4d Brain/Head without Contrast MR#: [id number] Acct: [id number] Name: JOSELUIS MCKAY Rep #: [id number] : 1945 F 70 From: Noé Carr MD PCP: Aylin Sierra Status: REG ER Study: Brain/Head without Contrast Date of Exam: 10/19/15 Exam# [id number] Ordering Dr: Man Salamanca MD STUDY: CT [...] Carr MD at 13:03 EDT Tel [phone], Service support [phone], CC: Aylin Sierra; MAN SALAMANCA MD Shared Services Manager: Signed 17-Oct-2015 Discharge Instruction Result: Comments: See Note; NOTES: [facility] Medical Records Department [address] [place] [address] Discharge Instruction 10/17/15 1652 MR#: [id number] Acct: [id number] Name: ANGAYDENJOSELUIS Jakub Rep #: [id number] : 1945 70 From: Rogelio Marcial MD [...] problems, contact your doctor. Call [facility] ([phone]) or report to the closest Emergency Room. Call 911 if necessary. 10/17/15 8573 <Electronically signed by Rogelio Marcial MD> Date Rogelio Marcial MD Cosigner Signature (If Indicated): Date CC: Aylin Sierra 17-Oct-2015 Brain/Head without Contrast Result: Comments: See Note; NOTES: [facility] Imaging Services [address] [place] [address] Verdana 4d Brain/Head without Contrast MR#: [id number] Acct: [id number] Name: JOSELUIS MCKAY Rep #: [id number] : 1945 F 70 From: Man Garcia MD PCP: Aylin Sierra Status: REG ER Study: Brain/Head without Contrast Date of Exam: 10/17/15 Exam# [id number] Rocío harris Dr: Rogelio Marcial MD STUDY: [...] MD at 16:33 EDT , Service support [phone], CC: Aylin Sierra; Rogelio Marcial MD Shared Services Manager: Signed 17-Oct-2015 Chest PA and Lateral Result: Comments: See Note; NOTES: [facility] Imaging Services [address] [place] [address] Verdana 4d Chest PA and Lateral MR#: [id number] Acct: [id number] Name: JOSELUIS MACIAS Rep #: [id number] : 1945 F 70 From: Man Garcia MD PCP: Aylin Sierra Status: REG ER Study: Chest PA and Lateral Date of Exam: 10/17/15 Exam# [id number] Ordering Dr: Allison Marcial MD STUDY: X-RAY [...] MD at 16:28 EDT , Service support [phone], ORDER #: [id number] RAD/Chest PA and Lateral IMPRESSION: Degenerative changes, as described above. No demonstrated acute cardiopulmonary process. Electronically Signed: Man Garcia MD at 16:28 EDT , Service support [phone], CC: Aylin Sierra; Rogelio Marcial MD Shared Services Manager: Signed 07-May-2015 EKG ([id number]) Result: [MEASUREMENTS ANALYSIS] Date of Test: 05/07/2015 14:57:34; Heart Rate: 74; [place] Interval: 180; QRS: 97; QT Interval: 372; Corrected QT Interval (QTc): 396; P Wave Poyntelle: 66; QRS Wave Poyntelle: -4; T Wave Poyntelle: 40; Blood Pressure: 118/76 [ECG DIAGNOSTIC STATEMENTS] Date of Test: 05/07/2015 14:57:34; Summary: Sinus Rhythm -Left atrial enlargement. - Negative precordial T-waves. BORDERLINE [MEASUREMENTS ANAL YSIS] Date of Test: 05/07/2015 14:57:26; Heart Rate: 73; [place] Interval: 184; QRS: 100; QT Interval: 370; Corrected QT Interval (QTc): 392; P Wave Poyntelle: 57; QRS Wave Poyntelle: 6; T Wave Poyntelle: 48; Blood Pressur e: 118/76 [ECG DIAGNOSTIC STATEMENTS] Date of Test: 05/07/2015 14:57:26; Summary: Sinus Rhythm -Left atrial enlargement. - Negative precordial T-waves. BORDERLINE 28-Feb-2015 PT Discharge Summary Result: Comments: See Note; NOTES: [facility] [facility] [place], [place] [address] Fax REHABILITATION SE RVICES DISCHARGE SUMMARY MR#: [id number] Acct: [id number] Name: JOSELUIS MCKAY Rep #: [id number] : 1945 70 From: Samy Johnson Referring [...] referral. Samy Johnson, PT T: NTS JOB: [id number] <Electronically signed by Samy Johnson > 1026 CC: Rosa Isela Sweet MD Signed 26-Feb-2015 EKG (15277) Comments: see scanned document of test done to see results reviewed today with patient v Result: [MEASUREMENTS ANALYSIS] Date of Test: 02/26/2015 12:21:51; Heart Rate: 57; [place] Interval: 172; QRS: 102; QT Interval: 406; Corrected QT Interval (QTc): 401; P Wave Poyntelle: 34; QRS Wave Poyntelle: -4; T Wave Poyntelle : 26; Blood Pressure: 100/70 [ECG DIAGNOSTIC STATEMENTS] Date of Test: 02/26/2015 12:21:51; Summary: Sinus Bradycardia WITHIN NORMAL LIMITS 31-Jan-2015 Inital Evaluation - PT Result: Comments: See Note; NOTES: [facility] [address] [place] [address] Fax REHABILITATION SERVICES INITIAL EVALUATION MR#: [id number] Acct: [id number] Name: JOSELUIS MCKAY Rep #: [id number] : 1945 70 From: Samy Johnson Referring [...] or dementia,but comprhension and attention not as good. wanted to do MRI of back. Location [...] Parathyroid Scan Result: Comments: See Note; NOTES: [facility] Imaging Services [address] [place] [address] Nuclear Medicine Report MR#: [id number] Acct: [id number] Name: JOSELUIS MCKAY Rep #: [id number] : 1945 F 70 From: Sd Elmore DO PCP: Rosa Isela Sweet MD Status: REG CLI Study: Parathyroid Scan Date of Exam: 01/18/15 Exam# [id number] Ordering Dr: Maxx Mitchell CL INICAL: 70-year-old [...] Sd alford DO at 11:27 EDT Tel [phone], Service support [phone], CC: Rosa Isela Sweet MD; MAXX MITCHELL Shared Services Manager: Signed 07-Dec-2014 Gastric Emptying Study Result: Comments: See Note; NOTES: [facility] Imaging Services [address] [place] [address] Nuclear Medicine Report MR#: [id number] Acct: [id number] Name: JOSELUIS MCKAY Rep #: [id number] : 1945 F 69 From: Sd Elmore DO PCP: Rosa Isela Sweet MD Status: REG CLI Study: Gastric Emptying Study Date of Exam: 12/07/14 Exam# [id number] Ordering Dr: Rosa Isela Sweet MD CLINICAL: [...] Sd Elmore DO at 22:08 EDT Tel [phone], Service support [phone], CC: Rosa Isela Sweet MD Shared Services Manager: Signed 26-Nov-2014 Bilat Scrn Digital AND CAD Result: Comments: See Note; NOTES: [facility] Imaging Services [address] [place] [address] Breast Imaging Report MR#: [id number] Acct: [id number] Name: JOSELUIS MCKAY ep #: [id number] : 1945 F 69 From: Suleman Chan MD PCP: Rosa Isela Sweet MD Status: REG CLI Study: Bilat Scrn Digital AND CAD Date of Exam: 11/26/14 Exam# [id number] Ordering Dr: Rosa Isela Sweet MD MAMMOGRAPHY [...] Suleman Chan MD at 9:19 EDT Tel [phone], Service support [phone], CC: Rosa Isela Sweet MD Shared Services Manager: Signed 26-Nov-2014 Thyroid Result: Comments: See Note; NOTES: [facility] Imaging Services [address] [place] [address] Ultrasound Report MR#: [id number] Acct: [id number] Name: JOSELUIS MCKAY Rep # : [id number] : 1945 F 69 From: Suleman Chan MD PCP: Rosa Isela Sweet MD Status: REG CLI Study: Thyroid Date of Exam: 11/26/14 Exam# [id number] Ordering Dr: Rosa Isela Sweet MD STUDY: [...] Chan MD 4 at 14:32 EDT Tel [phone], Service support [phone], CC: Rosa Isela Sweet MD Shared Services Manager: Signed 16-Aug-2014 Abdomen Single View Result: Comments: See Note; NOTES: [facility] Imaging Services [address] [place] [address] Radiology Report MR#: [id number] Acct: [id number] Name: JOSELUIS MCKAY Rep #: [id number] : 1945 F 69 From: Man Garcia MD PCP: Rosa Isela Sweet MD Status: [facility] Study: Abdomen Single View Date of Exam: 08/16/14 Exam# [id number] Ordering Dr: Jose Rodas MD [facility] DY: X-RAY - ABDOMEN/PELVIS REASON FOR EXAM: [...] , Service support , CC: Rosa Isela Sweet MD; Jose Rodas MD Shared Services Manager: Signed 05-Jul-2014 Operative Report Result: Comments: See Note; NOTES: [facility] Medical Records Department [address] [place] [address] Operative Report MR#: [id number] Acct: [id number] Name: JOSELUIS MCKAY Rep #: [id number] : 1945 69 From: Jose Rodas MD PCP: Rosa Isela Sweet MD Status: [facility] DATE OF SERVICE: 07/04/2014 DATE OF [...] skin. Jose Rodas MD T: NTS JOB: [id number] 07/05/14 0726 <Electronically signed by Jose Rodas MD> Date __ Jose Rodas MD CC: Rosa Isela Sweet MD; Jose Rodas MD Date Dictated: 07/04/141106 Date Transcribed: 07/04/141106 Shared Services Manager: Signed 04-Jul-2014 Operative Report Result: Comments: See Note; NOTES: [facility] Medical Records Department [address] [place] [address] Operative Report 07/04/14 110 MR#: [id number] Acct: [id number] Name: JOSELUIS PANDYA Rep #: [id number] : 1945 69 From: Jose Rodas MD PCP: Rosa Isela Sweet MD Status: REG [facility] Y Location: [place] [address] Report of Operation Date of Procedure: 07/04/14 Pre-Ope rative Diagnosis: left kidney stone Post-Operative Diagnosis: same Surgery/Procedure Performed:: Left ESWL Type of Anesthesia:: General Anesthesiologist: Oamr Graham Specimen's removed: none Drains : none [...] Discharge Instruction Result: Comments: See Note; NOTES: [facility] Medical Records Department [address] [place] [address] Instructions for Home/Discharge Instructions 07/04/14 1100 MR#: [id number] [facility] t: [id number] Name: JOSELUIS MCKAY Rep #: [id number] : 1945 69 From: Jose Rodas MD PCP: Rosa Isela Sweet MD Status: REG [facility] Discharge Diet: No Restrictions Discharge Activity: R eturn to Normal Activity, May Not Drive - for 2 days., May not drive while taking narcotic pain medications. Return to work on:: 07/09/14 May shower in (days): 1 Additional Activity Instructions:: I f you have any problems call [phone] and ask for your doctor to be [...] without Cont Result: Comments: See Note; NOTES: [facility] Imaging Services [address] [place] [address] CAT Scan Report MR#: [id number] Acct: [id number] Name: JOSELUIS MCKAY Rep #: [id number] : 1945 F 69 From: Escobar Marroquin DO PCP: Rosa Isela Sweet MD Status: REG CLI Study: Abdomen/Pelvis without Cont Date of Exam: 06/08/14 Exam# [id number] Ordering Dr: Jose Rodas MD [facility]: CT ABDOMEN AND PELVIS WITHOUT CONTRAST [...] Escobar Marroquin DO at 9:48 EST Tel [phone], Service support [phone], CC: Rosa Isela Sweet MD; Jose Rodas MD Shared Services Manager: Signed 05-Jun-2014 PT Discharge Summary Result: Comments: See Note; NOTES: [facility] [address] [place] [address]. [address] [place] [address] Fax REHABILITATION SERVICES DISCHARGE SUMMARY MR#: [id number] Acct: [id number] Name: JOSELUIS MCKAY Rep #: [id number] : 1945 69 From: Samy Johnson Referring [...] transiti on to a Health [facility] under [employer]. We provided the patient with some exercises, [...] will resume her exercise here in the [employer]. Otherwise, once again, thank you for this referral. Samy Johnson, PT T: VIKY JOB: [id number] <Electronically signed by Samy Johnson > 06/05/14 1530 CC: Signed 31-May-2014 Kidney and Bladder Result: Comments: See Note; NOTES: [facility] Imaging Services [address] [place] [address] Ultrasound Report MR#: [id number] Acct: [id number] Name: JOSELUIS MCKAY Rep #: [id number] : 1945 F 69 From: Jesus Espinoza DO PCP: Rosa Isela Sweet MD Status: REG CLI Study: Kidney and Bladder Date of Exam: 05/31/14 Exam# [id number] Ordering Dr: Jose Rodas MD ST UDY: [...] Mild left hydronephrosis. Electronically Signed: Jesus Espinoza crystal t 7:44 EST Tel , Service support [phone], CC: Rosa Isela Sweet MD; Jose Rodas MD Shared Services Manager: Signed 02-May-2014 Inital Evaluation - PT Result: Comments: See Note; NOTES: [facility] [address] [place], [place] [address] Fax REHABILITATION SERVICES INITIAL EVALUATION MR#: [id number] Acct: [id number] Name: JOSELUIS MCKAY Rep #: [id number] : 1945 69 From: Samy Johnson Referring [...] education. Samy Johnson, PT T: VIKY JOB: [id number] <Electronically signed by Samy Johnson > 05/02/14 0838 CC: DD: 05/01 Signed For Medicare only, by signing this I certify the plan of care. Physicians Signature Date 07-Sep-2013 Knee 4 or More Views Result: Comments: See Note; NOTES: [facility] Imaging Services [address] [place] [address] Radiology Report MR#: [id number] Acct: [id number] Name: JOSELUIS MCKAY Rep #: [id number] : 1945 F 68 From: Suleman Chan MD PCP: Rosa Iseal Sweet MD Status: REG CLI Study: Knee 4 or More Views Date of Exam: 09/07/13 Exam# [id number] Ordering Dr: Rosa Isela Sweet MD STUDY: [...] Suleman Chan MD at 14:43 EDT Tel [phone], Service support [phone], RAD/Knee 4 or More Views IMPRESSION: Chondrocalcinosis. Small joint effusion. El ectronically Signed: Suleman Chan MD at 14:43 EDT Tel [phone], Service support [phone], CC: Rosa Isela Sweet MD Shared Services Manager: Signed Family History Unknown Family Member Name Dates Details Father Comments: prostate cancer, dementia, stroke Status: Active Mother Comments: still living glaucoma, hx. shingles in her eye, Type II diabetes Status: Active Social History Name Dates Details Caffeine Use Comments: 1 qd Status: Active Current Work/Study Status: Retired. 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. Status: Active Exercise History: Does not exercise. [...] kg/m2 Body Surface Area Calculated 1.75 m2 58-Jea-93282:48 Pulse 92 /min Comments: Pattern: Regular Respiration [...] kg/m2 Body Surface Area Calculated 1.72 m2 63-Bnz-912829:23 Comments: hearing wnlDr. Midiol and had a [...] kg/m2 Body Surface Area Calculated 1.73 m2 6-Uwp-088199:00 Pulse 65 /min Comments: Pattern: Regular Respiration [...] m2 :22 Comments: pain more at a 6 now Temperature 98.2 f Comments: Method: Temporal [...] not hear, even with Doppler extremely faint km Temperature 98.2 f Comments: Method: Oral Pulse [...] kg/m2 Body Surface Area Calculated 1.66 m2 93-Kql-546031:40 Temperature 97.6 f Comments: Method: Temporal Pulse [...] 1.68 m2 Results Date Description Value Details :25 Blood Glucose , Office (42195) Blood Glucose , Office 95 (Normal) :25 HgA1C , Office (31645) HgA1C , Office 6.0 % (Normal) Range: 4.6 - 7.1 :06 Urinalysis, Office (50439) UA - LEUKOCYTE ESTERASE Moderate (Normal) Comments: 70leu/uL UA - NITRITE Negative (Normal) UA - PROTEIN Negative mg/dL (Normal) UA - PH 6.0 (Normal) UA - BLOOD Negative (Normal) UA - SPECIFIC GRAVITY 1.030 (Abnormal) UA - KETONES Negative mg/dL (Normal) UA - BILIRUBIN + (Abnormal) UA - GLUCOSE Negative (Normal) 71-Pmf-123781:17 Bedside Glucose Comments: [facility] [address] [place] [address] BEDSIDE GLU 88 mg/dL (Normal) Range: 70-110 Comments: MANAGEMENT OF PATIENT CARE PER NURSING PROTOCOL :41 Blood Glucose , Office (61038) Blood Glucose , Office 82 (Normal) :41 HgA1C , Office (65253) HgA1C , Office 5.8 % (Normal) Range: 4.6 - 7.1 :18 Anaerobic & Aerobic Comments: Right breast; PATIENT NOT FASTINGPERFORMED BY: [facility] Gltmby4143 [facility] [id number] Information: RIGHT BREAST SRC:BR Culture (19683) Result 1 Mixed skin remy (Normal) Aerobic Culture Final report (Normal) Result 1 NANG72 (Normal) Comments: No anaerobic growth in 72 hours. Anaerobic Culture Final report (Normal) 6-Zsj-930180:44 Urinalysis, Complete Comments: Order Date: 11/21/17How was Urine Obtained? [facility] [address] [place], [id number] MUCUS, URINE 0 SEEN {/hpf} (Normal) BACTERIA [...] COLOR Yellow (Normal) :12 HgA1C , Office (73265) HgA1C , Office 5.9 % (Normal) Range: 4.6 - 7.1 :12 Blood Glucose , Office (24771) Blood Glucose , Office 122 (Normal) Comments: not fasting :59 Microscopic Examination Comments: PATIENT WAS FASTINGPERFORMED BY: [facility] [id number] Bacteria None seen (Normal) Mucus Threads Present (Normal) Epithelial Cells (non renal) 0-10 {/hpf} (Normal) Range: 0 - 10 RBC 0-2 {/hpf} (Normal) Range: 0 - 2 WBC 0-5 {/hpf} (Normal) Range: 0 - 5 44-Ple-054874:50 Urinalysis, Complete Comments: Order Date: 07/28/17How was Urine Obtained? [facility] [address] [place], [id number] MUCUS, URINE 0 SEEN {/hpf} (Normal) BACTERIA [...] (Normal) CLARITY Clear (Normal) COLOR Yellow (Normal) 85-Tgr-712351:01 Basic Metabolic Profile (BMP) Comments: [facility] [address] [place], [place], [address] GAP 8 (Normal) Range: 5-15 CO2 30.0 [...] A.D.A. criteria.Please note revised GLUCOSE reference range gdttuadaj95/02/2018. 10-Bas-619207:01 Bedside Glucose Comments: [facility] [address] [place] [address] BEDSIDE GLU 109 mg/dL (Normal) Range: 70-110 Comments: MANAGEMENT OF PATIENT CARE PER NURSING PROTOCOL 85-Atl-912931:01 CBC W/Diff, Automated Comments: [facility] [address] [place], [address] Absolute Lymph 1.03 {X10_3/ul} (Normal) Range: 0.83-4.51 [...] 4.2-5.4 WBC 5.6 K/mm3 (Normal) Range: 4.4-11.0 80-Rxx-91345:59 PARATHORMONE (86491) Comments: PATIENT WAS FASTINGPERFORMED BY: CB [facility] Ksmhju4961 [facility] [id number] PTH, Intact 22 pg/mL (Normal) Range: 15-65 :59 CALCIFIDIOL (15202) VIT D 25 Comments: PATIENT WAS FASTINGPERFORMED BY: [facility] [id number] Vitamin D, 25-Hydroxy 60.4 ng/mL (Normal) Range: 30.0-100.0 Comments: Vitamin D deficiency has been defined by the [place] of[place] and an Endocrine Society practice guideline as alevel of serum 25-OH vitamin D less than 20 ng/mL (1,2).The Endocrine Society went on to further define vitamin Dinsufficiency as a level between 21 and 29 ng/mL (2).1. IOM ([place] of Medicine). 2010. Dietary reference intakes for calcium and D. [place]: The National Academies Press.2. Shelby MF, Sergio EAST, Anatoly MERCER, et al. Evaluation, treatment, and prevention of vitamin D deficiency: an Endocrine Society clinical practice guideline. JCEM. 2010; 96(7):1911-30. 73-Dmb-66174:59 TSH (53105) Comments: PATIENT WAS FASTINGPERFORMED BY: [facility] [id number] TSH 1.720 {uIU/mL} (Normal) Range: 0.450-4.500 :59 URINALYSIS, W/ MICRO (47749) Comments: PATIENT WAS FASTINGPERFORMED BY: [facility] [id number] Microscopic Examination See below: (Normal) Comments: Microscopic was indicated and was performed. Nitrite, Urine Negative (Normal) Urobilinogen,Semi-Qn 0.2 mg/dL (Normal) Range: 0.2-1.0 Bilirubin Negative (Normal) Occult Blood Negative (Normal) Ketones Negative (Normal) Glucose Negative (Normal) Protein Negative (Normal) WBC Esterase Trace (Abnormal) Appearance Clear (Normal) Urine-Color Yellow (Normal) pH 6.0 (Normal) Range: 5.0-7.5 Specific [place] 1.017 (Normal) Range: 1.005-1.030 :59 MICROALBUMIN: CREATININE RATIO Comments: PATIENT WAS FASTINGPERFORMED BY: [facility] SiliconAtlantiCare [facility] CampusEyzzjh1857 [facility] [id number] (85653) AND (36934) Alb/Creat Ratio 8.7 {mg/g_creat} (Normal) Range: 0.0-30.0 Albumin, Urine 6.7 ug/mL (Normal) Creatinine, Urine 76.6 mg/dL (Normal) :59 METABOLIC PANEL, COMPREHENSIVE Comments: PATIENT WAS FASTINGPERFORMED BY: [employer] Pjxfqn3642 [facility] [id number] (82823) ALT (SGPT) 21 [iU]/L (Normal) Range: 0-32 [...] 8-27 Glucose 93 mg/dL (Normal) Range: 65-99 37-Xhu-25420:59 LIPID PANEL (99043) Comments: PATIENT WAS FASTINGPERFORMED BY: [employer]6370 [facility] [id number] LDL/HDL Ratio 2.3 {ratio} (Normal) Range: 0.0-3.2 Comments: LDL/HDL Ratio Men Women 1/2 Avg.Risk 1.0 1.5 Av g.Risk 3.6 3.2 2X Avg.Risk 6.2 5.0 3X Avg.Risk 8.0 6.1 LDL Cholesterol Calc 126 mg/dL (Abnormal) Range: 0-99 VLDL Cholesterol Atb 16 mg/dL (Normal) Range: 5-40 HDL Cholesterol 56 mg/dL (Normal) Triglycerides 78 mg/dL (Normal) Range: 0-149 Cholesterol, Total 198 mg/dL (Normal) Range: 100-199 :59 CBC W/AUTO DIFF WBC (27721) Comments: PATIENT WAS FASTINGPERFORMED BY: [employer]6370 [facility] [id number]; ov 10/05 Immature Grans (Abs) 0.0 {x10E3/uL} [...] (Normal) Range: 3.4-10.8 :02 HgA1C , Office (32356) HgA1C , Office 5.6 % (Normal) Range: 4.6 - 7.1 :02 Blood Glucose , Office (14015) Blood Glucose , Office 118 (Normal) :38 HgA1C , Office (22576) HgA1C , Office 5.7 % (Normal) Range: 4.6 - 7.1 :38 Blood Glucose , Office (57156) Blood Glucose , Office 90 (Normal) 8-Ool-279224:20 Microscopic Examination Comments: PATIENT WAS FASTINGPERFORMED BY: [facility] Vpanuf3019 [facility] [id number] Bacteria Few (Normal) Mucus Threads Present (Normal) Epithelial Cells (non 0-10 {/hpf} (Normal) Range: 0 - 10 renal) RBC None seen {/hpf} Range: 0 - 2 (Normal) WBC 0-5 {/hpf} (Normal) Range: 0 - 5 : COLON BIOPSY (CHOOSE See Note (Normal) Comments: [facility] Timpotlwqe7918 [facility] [place], [address] 42 SITE) Comments: Patient: JOSELUIS MCKAY : 1945 (72/F) Acct Num: [id number] Phys: Kylah FLORES,Cruz Unit Num: [id number] Loc: [facility] Specimen: [id number] Received: 01/12/17 - 7942 Spec Type : COLON BX TISSUES TISSUES: GROSS DESCRIPTION Received in fixative is one container labeled with the patient's name and designated mid sigmoid polyp. The specimen consists of one i rregular fragmentof light harris soft tissue that measures 0.2 x 0.2 x 0.1 cm. The specimen is totally submitted in one cassette. / SJ:zach 01/12/17 TC:5 CPT: 51977 HEADER OPERATION: Colonoscopy P RE-OP DIAGNOSIS: History of polyps TISSUE SUBMITTED: Mid sigmoid polyp MICROSCOPIC DESCRIPTION Slides are reviewed. MICROSCOPIC DIAGNOSIS Mid sigmoid polyp, biopsy: Hyperplastic poly p. AM:zach 01/13/17 Signed Carlos Manuel Na 01/13/17 <signature on file> 50-Eth-361780:34 Bedside Glucose Comments: [facility] LaboratoryPoint of Ravu[address] [place], [place] [address] BEDSIDE GLU 94 mg/dL (Normal) Range: 70-110 Comments: MANAGEMENT OF PATIENT CARE PER NURSING PROTOCOL 7-Peg-571454:20 URINALYSIS, W/ MICRO (31121) Comments: PATIENT WAS FASTINGPERFORMED BY: Mural.lyAt[facility]annapolis [id number] Microscopic Examination See below: (Normal) Comments: Microscopic was indicated and was performed. Nitrite, Urine Negative (Normal) Urobilinogen,Semi-Qn 0.2 mg/dL (Normal) Range: 0.2-1.0 Bilirubin Negative (Normal) Occult Blood Negative (Normal) Ketones Negative (Normal) Glucose Negative (Normal) Protein Negative (Normal) WBC Esterase 1+ (Abnormal) Appearance Clear (Normal) Urine-Color Yellow (Normal) pH 6.5 (Normal) Range: 5.0-7.5 Specific [place] 1.008 (Normal) Range: 1.005-1.030 3-Efk-195378:20 MICROALBUMIN: CREATININE RATIO Comments: PATIENT WAS FASTINGPERFORMED BY: [employer] [facility] CenterLixte Biotechnology HoldingsAtrium Health Kannapolis [id number] (04724) AND (25958) Microalb/Creat Ratio 11.5 {mg/g_creat} (Normal) Range: 0.0-30.0 Microalbumin, Urine 3.7 ug/mL (Normal) Creatinine, Urine 32.3 mg/dL (Normal) 6-Oor-272708:20 METABOLIC PANEL, COMPREHENSIVE Comments: PATIENT WAS FASTINGPERFORMED BY: [facility] ResourcesCata[facility] [id number] (85863) ALT (SGPT) 27 [iU]/L (Normal) Range: 0-32 [...] Glucose, Serum 78 mg/dL (Normal) Range: 65-99 5-Syj-962723:20 TSH (04020) Comments: PATIENT WAS FASTINGPERFORMED BY: [facility] ResourcesCata[facility] [id number] TSH 22.910 {uIU/mL} (Abnormal) Range: 0.450-4.500 6-Ywd-946229:20 WNXPZ-YJSGFHRIXQZ-ERMRQ (05588) Comments: PATIENT WAS FASTINGPERFORMED BY: Redstone ResourcesDublin [place] [id number] AFP, Serum, Tumor Marker 1.6 ng/mL (Normal) Range: 0.0-8.3 Comments: Suzanne ECLIA methodology 0-Pdj-525640:20 CALCIFEDIOL (08735) Comments: PATIENT WAS FASTINGPERFORMED BY: [facility]6370 [facility] [id number] Vitamin D, 25-Hydroxy 47.7 ng/mL (Normal) Range: 30.0-100.0 Comments: Vitamin D deficiency has been defined by the Buchanan ofMedicine and an Endocrine Society practice guideline as alevel of serum 25-OH vitamin D less than 20 ng/mL (1,2).The Endocrine Society went on to further define vitamin Dinsufficiency as a level between 21 and 29 ng/mL (2).1. IOM (B[place]anan of Medicine). 2010. Dietary reference intakes for calcium and D. [place]: The National Academies Press.2. Shelby MF, Sergio EAST, Anatoly MERCER, et al. Evaluation, treatment, and prevention of vitamin D deficiency: an Endocrine Society clinical practice guideline. JCEM. 2010; 96(7):1911-30. 4-Zbq-610277:20 LIPID PANEL (36156) Comments: PATIENT WAS FASTINGPERFORMED BY: [facility] Centerlin6370 [facility] [id number] LDL/HDL Ratio 2.4 {ratio_units} (Normal) Range: 0.0-3.2 Comments: LDL/HDL Ratio Men Women 1/2 Avg.Risk 1.0 1.5 Av g.Risk 3.6 3.2 2X Avg.Risk 6.2 5.0 3X Avg.Risk 8.0 6.1 LDL Cholesterol Calc 147 mg/dL (Abnormal) Range: 0-99 VLDL Cholesterol Tab 34 mg/dL (Normal) Range: 5-40 HDL Cholesterol 61 mg/dL (Normal) Triglycerides 172 mg/dL (Abnormal) Range: 0-149 Cholesterol, Total 242 mg/dL (Abnormal) Range: 100-199 6-Dgh-168282:20 CBC W/AUTO DIFF WBC (11088) Comments: PATIENT WAS FASTINGPERFORMED BY: [facility]CoAtlantiCare [facility] CampusKjprst6059 [facility] [id number] Immature Grans (Abs) 0.0 {x10E3/uL} (Normal) Range: [...] (Normal) Range: 3.4-10.8 :06 HgA1C , Office (99602) HgA1C , Office 5.5 % (Normal) Range: 4.6 - 7.1 :06 Blood Glucose , Office (96486) Blood Glucose , Office 122 (Normal) 4-Jxg-335939:49 Comprehensive Metabolic Profil Comments: [facility] [address] [place], [address] GAP 7 (Normal) Range: 5-15 CO2 29.0 [...] <126 mg/dLsuggests IMPAIRED HOMEOSTASIS per A.D.A. criteria. 4-Uns-731563:49 Magnesium Comments: [facility] [address] [place], [address] MG 2.0 mg/dL (Normal) Range: 1.8-2.4 8-Gib-817338:49 Thyroid Stim Hormone (TSH) Comments: [facility] [address] [place], [place], [address](265) TSH 3.30 {uIU/mL} (Normal) Range: 0.358-3.74 7-Ybp-144890:49 Vitamin D,25 Hydroxy Comments: [facility] [address] [place], [address] Vitamin D 25-OH 32.0 ng/mL (Normal) Comments: Vitamin D 25(OH) Status Range Deficiency <20 ng/mL (50nmol/L) Insuffciency 20 - 30 ng/mL (50 - 75 nmol/L) Sufficiency 30 - 100 ng/mL (75 - 250 nmol/L) Toxicity >100 ng/mL (>250 nmol/L) 0-Jkq-516364:20 HgA1C , Office (66634) HgA1C , Office 5.7 % (Normal) Range: 4.6 - 7.1 5-Mmi-490867:20 Blood Glucose , Office (46719) Blood Glucose , Office 74 (Normal) 95-Mss-266920:26 Culture, Aerobic, Comments: PATIENT NOT FASTINGPERFORMED BY: [facility] Mvpksm6280 [facility] [id number] Information: RIGHT THUMB SRC:RU Bacterial ID (65623) Result 2 BETAGB (Abnormal) Comments: Beta hemolytic [...] Meropenem Aerobic Bacterial Final report (Abnormal) Culture 78-Vmj-835499:27 HgA1C , Office (43964) HgA1C , Office 5.7 % (Normal) Range: 4.6 - 7.1 31-Aex-387059:27 Blood Glucose , Office (66522) Blood Glucose , Office 84 (Normal) 05-Teu-454162:30 CALCIFEDIOL (24791) Comments: PATIENT NOT FASTINGPERFORMED BY: [facility] Dhbvfl2327 Mistry RoadDublin [place] [id number] Vitamin D, 25-Hydroxy 37.5 ng/mL (Normal) Range: 30.0-100.0 Comments: Vitamin D deficiency has been defined by the Buchanan ofCleveland Clinic South Pointe Hospitalcine and an Endocrine Society practice guideline as alevel of serum 25-OH vitamin D less than 20 ng/mL (1,2).The Endocrine Society went on to further define vitamin Dinsufficiency as a level between 21 and 29 ng/mL (2).1. IOM (Buchanan of Medicine). 2010. Dietary reference intakes for calcium and D. [place]: The National Academies Press.2. Shelby MF, Sergio EAST, Anatoly MERCER, et al. Evaluation, treatment, and prevention of vitamin D deficiency: an Endocrine Society clinical practice guideline. JCEM. 2010; 96(7):1911-30. 05-Hkv-966727:30 T4, FREE (THYROXINE) (49327) Comments: PATIENT NOT FASTINGPERFORMED BY: CB [facility] Htzmax3477 [address] RoadDublin [place] [id number] T4,Free(Direct) 1.75 ng/dL (Normal) Range: 0.82-1.77 22-Zey-270787:30 TSH (96813) Comments: PATIENT NOT FASTINGPERFORMED BY: CB [facility] Lymzbs1695 [address] RoadDublin [place] [id number] TSH 0.795 {uIU/mL} (Normal) Range: 0.450-4.500 12-Ppy-437965:30 Metabolic Panel, Comments: PATIENT NOT FASTINGPERFORMED BY: [facility] Pnujoy[address] [place] [id number] Information: [id number] Comprehensive (61869) ALT (SGPT) 26 [iU]/L (Normal) Range: 0-32 [...] Glucose, Serum 92 mg/dL (Normal) Range: 65-99 :47 Urinalysis, Complete Comments: Order Date: 01/24/16How was Urine Obtained? [facility] [address] [place], [id number] MUCUS, URINE 0 SEEN {/hpf} (Normal) BACTERIA [...] (Normal) :47 Urine Drug Screen (VISTA) Comments: [facility] [address]eeqe[address] [facility] [place], [address] THC NEGATIVE (Normal) PCP NEGATIVE [...] TESTING MUST BE ORDERED SEPARATELY. USE TESTMNEMONIC: [facility] 9-Mnt-030695:17 Alcohol, Blood (Medical)-Serum Comments: [facility] Swrclmwtia[address] [facility] [place], [address] SERUM ETOH 11.0 mg/dL (Normal) Comments: The serum:whole blood ethanol ratio is approximately 1.14and varies slightly with hematocrit.Medical Alcohol reference interval and critical value innon-tolerant individuals; 50 - 100 Impairment 100 Intoxication 100 - 250 Severe Poisoning 250 - 400 Deep/possible fatal coma 0-Oqj-095855:17 Basic Metabolic Profile (BMP) Comments: [facility] [address] [place], [place], [address] GAP 7 (Normal) Range: 5-15 CO2 30.0 [...] 7-18 GLU 85 mg/dL (Normal) Range: 70-110 1-Wwk-659557:17 CBC W/Diff, Automated Comments: [facility] [address] [place], [place], [address] Absolute Lymph 1.58 {X10_3/ul} (Normal) Range: 0.83-4.51 [...] 4.4-11.0 :17 Thyroid Stim Hormone (TSH) Comments: [facility] [address] [place], [place], [address] TSH 6.50 {uIU/mL} (Abnormal) Range: 0.358-3.74 :54 T4 Free Direct Comments: [facility] [address] [place], [place], [address] T4 FREE DIRECT 1.03 ng/dL (Normal) Range: 0.76-1.46 :54 Thyroid Stim Hormone (TSH) Comments: [facility] [address] [place], [place], [address] TSH 6.21 {uIU/mL} (Abnormal) Range: 0.358-3.74 89-Msh-917500:47 TSH (THYROID STIMULATING Comments: PATIENT NOT FASTINGPERFORMED BY: [facility]CoAtlantiCare [facility] CampusPzzcbj0234 [address] [place] [id number] Information: [id number] HORMONE) (82219) TSH 12.540 {uIU/mL} (Abnormal) Range: 0.450-4.500 :08 Comprehensive Metabolic Profil Comments: [facility] [address] [place], [place], [address]) GAP 6 (Normal) Range: 5-15 CO2 28.0 [...] <126 mg/dLsuggests IMPAIRED HOMEOSTASIS per A.D.A. criteria. 45-Yin-536675:08 Free T3 Comments: [facility] [address] [place], [address](443) FREE T3 1.7 pg/mL (Abnormal) Range: 2.18-3.98 :08 Magnesium Comments: [facility] [address] [place], [address] MG 2.0 mg/dL (Normal) Range: 1.8-2.4 :08 T4 Free Direct Comments: [facility] Cdhluryvfw[address]74 [address] [place], [address] T4 FREE DIRECT 1.01 ng/dL (Normal) Range: 0.76-1.46 :08 Thyroid Stim Hormone (TSH) Comments: [facility] Xepvghctlu9726 [address] [place], [address] TSH 4.70 {uIU/mL} (Abnormal) Range: 0.358-3.74 :08 Vitamin D,25 Hydroxy Comments: [facility] Kqxqbggkdl8486 [address] [place], [address] Vitamin D 25-OH 38.3 ng/mL (Normal) Comments: Vitamin D 25(OH) Status Range Deficiency <20 ng/mL (50nmol/L) Insuffciency 20 - 30 ng/mL (50 - 75 nmol/L) Sufficiency 30 - 100 ng/mL (75 - 250 nmol/L) Toxicity >100 ng/mL (>250 nmol/L) :03 CALCIFEDIOL (37770) Comments: PATIENT NOT FASTINGPERFORMED BY: [facility]6370 [facility] [id number] Vitamin D, 25-Hydroxy 38.4 ng/mL (Normal) Range: 30.0-100.0 Comments: Vitamin D deficiency has been defined by the [place]anan ofCleveland Clinic South Pointe Hospitalcine and an Endocrine Society practice guideline as alevel of serum 25-OH vitamin D less than 20 ng/mL (1,2).The Endocrine Society went on to further define vitamin Dinsufficiency as a level between 21 and 29 ng/mL (2).1. IOM (B[place]anan of Medicine). 2010. Dietary reference intakes for calcium and D. [place]: The National Academies Press.2. Shelby MF, Sergio EAST, Anatoly MERCER, et al. Evaluation, treatment, and prevention of vitamin D deficiency: an Endocrine Society clinical practice guideline. JCEM. 2010; 96(7):1911-30. :03 T4, FREE (THYROXINE) Comments: PATIENT NOT FASTINGPERFORMED BY: [facility]6370 [facility] [id number] Information: [id number] (30708) T4,Free(Direct) 1.08 ng/dL (Normal) Range: 0.82-1.77 :03 T3, FREE (TRIDOTHYRONINE) (43552) Comments: PATIENT NOT FASTINGPERFORMED BY: [facility]6370 [facility] [id number] Triiodothyronine,Free,Serum 2.2 pg/mL (Normal) Range: 2.0-4.4 :03 TSH (66619) Comments: PATIENT NOT FASTINGPERFORMED BY: [facility]6370 [facility] [id number] TSH 25.300 {uIU/mL} (Abnormal) Range: 0.450-4.500 :10 Urinalysis, Complete Comments: How was Urine Obtained? [facility] [address]axsujoz[address] [facility] [place], [place], [address] ; managed by another doctor MUCUS, URINE [...] Serial specimen #1, #2, #3, or #4: 1[facility] [address] [place], [place], [address] GAP 1 (Abnormal) Range: 5-15 CO2 29.0 [...] 7-18 GLU 108 mg/dL (Normal) Range: 70-110 4-Hrt-414500:30 CBC W/Diff, Automated Comments: [facility] [address] [place], [place], [address] Absolute Lymph 1.66 {X10_3/ul} (Normal) Range: 0.83-4.51 [...] 4.2-5.4 WBC 5.7 K/mm3 (Normal) Range: 4.4-11.0 6-Bpz-748861:30 Troponin-I Comments: 'TROP' Serial specimen #1, #2, #3, or #4: [address] [place] [address] [address] [place], [place], [address] TROPONIN-I < 0.02 ng/mL (Normal) Comments: TROPONIN-I EXPECTED VALUES <0.05 NEGATIVE 0.06 - 0.59 AT RISK OF NH > OR = 0.60 SUGGEST NH 59-Ery-845511:20 Pap IG, HPV-hr Comments: No. of containers..01 CYTYC Thin Prep VialPERFORMED BY: WB [facility] Dqamcdbwir047 [facility] [id number] BY: =G [facility] Qzhwzpawqr071 [facility] [id number] Information: [id number] HPV, high-risk Negative Comments: This high-risk HPV [...] PRESENT.THIS SPECIMEN WAS RESCREENED PART OF OUR GLOBAL SECURITY ARCHITECT PROGRAM.Satisfactory for evaluation. (Normal) Endocervical component may not bedistinguished in cases of atrophy.Areas of partially obscuring inflammtory exudate are present.Z11.51Z12.4Temo Holliday, Fast Brim Pouncer (ASCP)Bernadine Camargo, Fast Brim Pouncer (ASCP) 16-September Please note SPRCS Comments: No. of containers..01 CYTYC Thin Prep VialPERFORMED BY: [employer] [place] [address] W [id number] BY: =G LabLeeviaJqyoegxyyo7[address] W [id number] - (Normal) Comments: We have received your request for additional testing or testverification. You will be notified if we are unable to processyour request. 0:20 -September Written COMMNT Comments: No. of containers..01 CYTYC Thin Prep VialPERFORMED BY: [employer] [place] [address] W [id number] BY: =G Lab[facility] Amherstrp Bddgktcfmg507 [facility] W [id number] Authoriz RCV (Normal) Comments: Written Authorization Received.AUTHORIZATION SIGNED ROSA ISELA SWEET ON 10/11/2015 0:20 :49 OVA & PARASITE DIR SMEAR Comments: PATIENT NOT FASTINGPERFORMED BY: [facility]6370 [facility] [id number] (55731) Result 1 NOCP (Normal) Comments: No ova, cysts, or parasites seen. Ova + Parasite Exam Final report (Normal) Comments: These results were obtained using wet preparation(s) and trichromestained smear. This test does not include testing for Cryptosporidiumparvum, Cyclospora, or Microsporidia. 85-Ovv-324583:49 OCCULT BLOOD FECES SCREEN Comments: PATIENT NOT FASTINGPERFORMED BY: [address] [id number] (99048) Occult Blood, Fecal, IA Negative (Normal) 27-Rxj-460498:49 LEUKOCYTE COUNT, FECAL Comments: PATIENT NOT FASTINGPERFORMED BY: [address] [id number] (26838) Result 1 NWBC (Normal) Comments: No white blood cells seen. White Blood Cells (WBC), Final report (Normal) Stool 08-Tjf-507161:50 C-DIFFICILE, STOOL (50200) Comments: PATIENT NOT FASTINGPERFORMED BY: [address] [id number] Information: [id number] C difficile Toxins A+B, EIA Negative (Normal) :49 RUBENS CULTURE-STOOL (44889) Comments: PATIENT NOT FASTINGPERFORMED BY: [address] [id number] Information: SRC:STL [id number] E coli Shiga Toxin EIA Negative (Normal) Result 1 NCI (Normal) Comments: No Campylobacter species isolated. Campylobacter Culture Final report (Normal) Result 1 NSS (Normal) Comments: No Salmonella or Shigella recovered. Salmonella/Shigella Screen Final report (Normal) 8-Ylj-855545:42 Calcium Ionized Comments: [facility] (refer to report for specific site)refer to report for address and phone number [place] [address] 4.8 mg/dL (Normal) Range: 4.5-5.6 Comments: Performed at: [address] [id number] Director: Rocky Dudley PhD, Phone: [phone] 53-Yuc-965554:17 URINE RUBENS CULTURE-JAYDEN COL Comments: PATIENT NOT FASTINGPERFORMED BY: [address] [id number] Information: SRC:URC [id number] COUNT (11234) Result 1 MUG (Normal) Comments: Mixed urogenital flora4,000 Colonies/mL Urine Culture,Comprehensive Final report (Normal) :18 PT (PROTHROMBIN TIME) (24747) Comments: PATIENT NOT FASTINGPERFORMED BY: [facility]media[facility] Center6370 [facility] [id number] Prothrombin Time 10.1 {sec} (Normal) Range: 9.1-12.0 INR 1.0 (Normal) Range: 0.8-1.2 Comments: Reference interval is for non-anticoagulated patients. . Suggested INR therapeutic range for Vitamin K anta gonist therapy: Standard Dose (moderate intensity therapeutic range): 2.0 - 3.0 Higher intensity therapeutic range 2.5 - 3.5 :18 CBC, Platelets & Auto Comments: PATIENT NOT FASTINGPERFORMED BY: [facility]CoAtl[facility] CampusJvlesy8722 [facility] [id number] Information: [id number] Diff (88088) Immature Grans (Abs) 0.0 {x10E3/uL} (Normal) Range: [...] 3.77-5.28 WBC 6.0 {x10E3/uL} (Normal) Range: 3.4-10.8 :18 Metabolic Panel, Basic Comments: PATIENT NOT FASTINGPERFORMED BY: [facility]CoAtl[facility] CampusWejokv3918 [facility] [id number] (65387) Calcium, Serum 10.5 mg/dL (Abnormal) Range: 8.7-10.3 [...] Glucose, Serum 76 mg/dL (Normal) Range: 65-99 55-Lnt-528255:40 Blood Glucose , Office (41018) Blood Glucose , Office 112 (Normal) 56-Aud-857223:40 HgA1C , Office (71194) HgA1C , Office 5.6 % (Normal) Range: 4.6 - 7.1 15-Flg-293573:49 Urinalysis, Office (87082) UA - LEUKOCYTE ESTERASE Small (Normal) UA - NITRITE Negative (Normal) URINE UROBILINGN JAYDEN TIMED Normal mg/dL (Normal) UA - PROTEIN Negative mg/dL (Normal) UA - PH 6 (Abnormal) UA - BLOOD Negative (Normal) UA - SPECIFIC GRAVITY 1.030 (Abnormal) UA - KETONES Negative mg/dL (Normal) UA - BILIRUBIN Negative (Normal) UA - GLUCOSE Negative (Normal) 9-Vjt-764868:00 Basic Metabolic Profile (BMP) Comments: [facility] [address] [place], [place], [address] GAP 6 (Normal) Range: 5-15 CO2 28.0 [...] 7-18 GLU 89 mg/dL (Normal) Range: 70-110 4-Tsn-630635:33 CALCIFIDIOL (05978) VIT D 25 Comments: fax copy to Dr. Mitchell [phone]; PATIENT NOT FASTINGPERFORMED BY: [place] 3387070 [facility] [id number] Vitamin D, 25-Hydroxy 34.2 ng/mL (Normal) Range: 30.0-100.0 Comments: Vitamin D deficiency has been defined by the Buchanan ofCleveland Clinic South Pointe Hospitalcine and an Endocrine Society practice guideline as alevel of serum 25-OH vitamin D less than 20 ng/mL (1,2).The Endocrine Society went on to further define vitamin Dinsufficiency as a level between 21 and 29 ng/mL (2).1. IOM (B[place]anan of Medicine). 2010. Dietary reference intakes for calcium and D. [place]: The National Academies Press.2. Shelby MF, Sergio [place], Anatoly MERCER, et al. Evaluation, treatment, and prevention of vitamin D deficiency: an Endocrine Society clinical practice guideline. JCEM. 2010; 96(7):1911-30. 6-Vxf-415177:33 PTH (PARATHORMONE) (77868) Comments: fax copy to Dr. Mitchell [phone]; PATIENT NOT FASTINGPERFORMED BY: [employer]6[address] [facility] [id number] PTH, Intact 67 pg/mL (Abnormal) Range: 15-65 0-Uov-036791:33 Metabolic Panel, Comments: fax to Dr. Mitchell fax [phone]; PATIENT NOT FASTINGPERFORMED BY: [employer]6370 [facility] [id number] Information: [id number] Comprehensive (48017) ALT (SGPT) 17 [iU]/L (Normal) Range: 0-32 [...] 6.2 mg/dL Comments: PATIENT NOT FASTINGPERFORMED BY: [place] 3387070 [facility] [id number] :11 (Abnormal) Range: 4.5-5.6 PTH, Intact 59 pg/mL (Normal) Comments: PATIENT NOT FASTINGPERFORMED BY: [place] 3387070 [facility] [id number] :11 Range: 15-65 Thyroxine (T4) 8.6 ug/dL (Normal) Comments: PATIENT NOT FASTINGPERFORMED BY: [place] 3387070 [facility] [id number] :11 Range: 4.5-12.0 Triiodothyronine (T3) 96 ng/dL (Normal) Comments: PATIENT NOT FASTINGPERFORMED BY: [address] [id number] :11 Range: 71-180 TSH 0.985 {uIU/mL} Comments: PATIENT NOT FASTINGPERFORMED BY: [place] [id number] [facility] [id number] Information: [id number] :11 (Normal) Range: 0.450-4.500 :27 HgA1C , Office (98606) HgA1C , Office 6.0 % (Normal) Range: 4.6 - 7.1 :27 Blood Glucose , Office (97215) Blood Glucose , Office 168 (Normal) Comments: already ate today :54 Basic Metabolic Panel (8) Comments: PATIENT NOT FASTINGPERFORMED BY: [address] [id number] Information: [id number] Calcium, Serum 10.5 mg/dL (Abnormal) Range: 8.7-10.3 [...] (Normal) Range: 65-99 :18 HgA1C , Office (05800) HgA1C , Office 5.8 % (Normal) Range: 4.6 - 7.1 :18 Blood Glucose , Office (66921) Blood Glucose , Office 74 (Normal) 21-Tfv-318258:42 Culture, Urine Comments: Test performed at:[facility] Spxqcqgqlv6036 [facility] [place] [address] CUUR See Note (Normal) Comments: [...] $ 1 S(NF) indicates non-formulary drug at [facility]. Approval by Infectious Disease Specialist required before non-formulary drugs may be or dered and/or dispensed. * CLSI guidelines does not recommend testing of cephalosporins. This interpretation is deduced from Beta-lactam/penicillin results. :42 Urinalysis, Routine (Dipstick) Comments: How was Urine Obtained? CLEAN CATCHTest performed at:[facility] Qgiltoiyiu2985 [facility] [place] [address] LEUK ESTERASE 500 /ul (Abnormal) OCCULT BLOOD-UR Negative /ul (Normal) NITRITE UR Negative (Normal) UROBILI Normal mg/dL (Normal) PROT DIPSTX Negative mg/dL (Normal) pH UR 5.0 (Normal) Range: 5.0 - 8.0 SP.GR. DIPSTX 1.025 (Normal) Range: 1.002-1.030 KETONE UR Negative mg/dL (Normal) BILIRUBIN URINE Negative mg/dL (Normal) GLUCOSE, UR Normal mg/dL (Normal) CLARITY Sl. Cloudy (Normal) COLOR Yellow (Normal) 10-Ewh-104330:01 Bedside Glucose Comments: Test performed at:[facility] Pkpltksics[address] [place] [address] BEDSIDE GLU 94 mg/dL (Normal) Range: 70-110 Comments: Policy and Physicians Orders followedMANAGEMENT OF PATIENT CARE PER NURSING PROTOCOL 7-Kiz-347798:45 Culture, Urine Comments: Test performed at:[facility] [address] [place] [address] CUUR See Note (Normal) Comments: Urine CultureORGANISM [...] $ <=20 S(NF) indicates non-formulary drug at [facility]. Approval by Infectio us Disease Specialist required before non-formulary drugs may be ordered and/or dispensed. 0-Vlo-890363:45 Urinalysis, Routine (Dipstick) Comments: How was Urine Obtained? CLEAN CATCHTest performed at:[facility] Vadzhgi[address] [place] [address] LEUK ESTERASE 25 /ul (Abnormal) OCCULT BLOOD-UR 150 /ul (Abnormal) NITRITE UR Negative (Normal) UROBILI Normal mg/dL (Normal) PROT DIPSTX Negative mg/dL (Normal) pH UR 6.0 (Normal) Range: 5.0 - 8.0 SP.GR. DIPSTX 1.015 (Normal) Range: 1.002-1.030 KETONE UR Negative mg/dL (Normal) BILIRUBIN URINE Negative mg/dL (Normal) GLUCOSE, UR Normal mg/dL (Normal) CLARITY Clear (Normal) COLOR Yellow (Normal) 8-Abm-429931:12 Microscopic Examination Comments: PATIENT WAS FASTINGPERFORMED BY: [facility] [id number] Bacteria Few (Normal) Mucus Threads Present (Normal) Epithelial Cells (non renal) 0-10 {/hpf} (Normal) Range: 0 - 10 RBC 0-2 {/hpf} (Normal) Range: 0 - 2 WBC 6-10 {/hpf} (Abnormal) Range: 0 - 5 5-Iet-084897:09 Urinalysis, Office (86691) UA - LEUKOCYTE ESTERASE Small (Normal) UA - NITRITE Negative (Normal) URINE UROBILINGN JAYDEN TIMED Normal mg/dL (Normal) UA - PROTEIN Negative mg/dL (Normal) UA - PH 7 (Normal) UA - BLOOD Hemolyzed Trace (Normal) UA - SPECIFIC GRAVITY 1.020 (Normal) UA - KETONES Negative mg/dL (Normal) UA - BILIRUBIN Negative (Normal) UA - GLUCOSE Negative (Normal) :53 HgA1C , Office (75122) HgA1C , Office 6.1 % (Normal) Range: 4.6 - 7.1 :53 Blood Glucose , Office (05886) Blood Glucose , Office 100 (Normal) 1-Zti-470276:07 Urinalysis, Office (72520) UA - LEUKOCYTE ESTERASE Small (Normal) UA - NITRITE Negative (Normal) URINE UROBILINGN JAYDEN TIMED Normal mg/dL (Normal) UA - PROTEIN 100 mg/dL (Normal) UA - PH 6.5 (Normal) UA - BLOOD ++ (Abnormal) UA - SPECIFIC GRAVITY 1.025 (Normal) UA - KETONES Negative mg/dL (Normal) UA - BILIRUBIN Negative (Normal) UA - GLUCOSE Negative (Normal) 94-Tkg-030767:06 URINE RUBENS CULTURE-IDENTIFICATN Comments: PATIENT NOT FASTINGPERFORMED BY: Mural.lyAt[facility] Health [facility] [id number] Information: [id number] (37618) Result 1 MUG (Normal) Comments: Mixed urogenital flora1,000 Colonies/mL Urine Culture,Comprehensive Final report (Normal) 05-Fcv-751005:43 Urinalysis, Office (93541) UA - LEUKOCYTE ESTERASE Large (Normal) UA - NITRITE Negative (Normal) URINE UROBILINGN JAYDEN TIMED 2 mg/dL (Normal) UA - PROTEIN Negative mg/dL (Normal) UA - PH 6.0 (Normal) UA - BLOOD Hemolyzed Large (Normal) UA - SPECIFIC GRAVITY 1.015 (Normal) UA - KETONES Negative mg/dL (Normal) UA - BILIRUBIN Negative (Normal) UA - GLUCOSE Negative (Normal) 5-Ygc-308142:12 TSH (17091) Comments: PATIENT WAS FASTINGPERFORMED BY: [facility] [facility] [id number] TSH 1.070 {uIU/mL} (Normal) Range: 0.450-4.500 8-Dqr-169323:12 URINALYSIS, W/ MICRO (10692) Comments: PATIENT WAS FASTINGPERFORMED BY: [facility]70 [facility] [id number] Microscopic Examination See below: (Normal) Comments: Microscopic was indicated and was performed. Microscopic Examination MICRON (Normal) Comments: Microscopic follows if indicated. Nitrite, Urine Negative (Normal) Urobilinogen,Semi-Qn 0.2 mg/dL (Normal) Range: 0.0-1.9 Bilirubin Negative (Normal) Occult Blood Negative (Normal) Ketones Negative (Normal) Glucose Negative (Normal) Protein Negative (Normal) WBC Esterase Negative (Normal) Appearance Clear (Normal) Urine-Color Yellow (Normal) pH 7.0 (Normal) Range: 5.0-7.5 Specific [place] 1.015 (Normal) Range: 1.005-1.030 5-Njz-685150:12 METABOLIC PANEL, COMPREHENSIVE Comments: PATIENT WAS FASTINGPERFORMED BY: [facility] [id number] (82880) ALT (SGPT) 20 [iU]/L (Normal) Range: 0-32 [...] Glucose, Serum 86 mg/dL (Normal) Range: 65-99 6-Bap-356977:12 LIPID PANEL (01158) Comments: PATIENT WAS FASTINGPERFORMED BY: [facility] Teipld5862 [facility] [id number] LDL/HDL Ratio 2.0 {ratio_units} (Normal) Range: 0.0-3.2 [...] Cholesterol, Total 192 mg/dL (Normal) Range: 100-199 8-Wgg-674776:12 CBC W/AUTO DIFF WBC Comments: PATIENT WAS FASTINGPERFORMED BY: LabCoAtlantiCare [facility] CampusDvcokz2496 [facility] [id number] Information: [id number] (28474) Immature Grans (Abs) 0.0 {x10E3/uL} (Normal) Range: [...] (Normal) Range: 3.4-10.8 :57 HgA1C , Office (92303) HgA1C , Office 5.7 % (Normal) Range: 4.6 - 7.1 :57 Blood Glucose , Office (87865) Blood Glucose , 91 (Normal) Office : B12 434 pg/mL (Normal) Range: 211-911 28 : PAPER GLUING OPERATOR 112 ug/dL (Normal) Range: 72-166 28 Comments: Detection Limit = 5Performed at: [facility] [id number] Director: Heladio Schaffer MD, Phone: [phone] : VITD 37.9 mg/mL (Normal) Comments: Vitamin D 25(OH) Status RangeDeficiency <20 ng/mL (50nmol/L)Insuffciency 20 - 30 ng/mL (50 - 75 nmol/L)Sufficiency 30 - 100 ng/mL (75 - 250 28 nmol/L)Toxicity >100 ng/mL (>250 nmol/L) :22 Microscopic Examination Comments: PATIENT WAS FASTINGPERFORMED BY: LabCoAtlantiCare [facility] CampusVvuddz9724 [facility] [id number] Bacteria Few (Normal) Mucus Threads Present (Normal) Crystal Type Calcium Oxalate (Normal) Crystals Present (Abnormal) Epithelial Cells (non renal) 0-10 {/hpf} (Normal) Range: 0 - 10 RBC 3-10 {/hpf} (Abnormal) Range: 0 - 2 WBC 0-5 {/hpf} (Normal) Range: 0 - 5 :39 HgA1C , Office (17742) HgA1C , Office 5.7 % (Normal) Range: 4.6 - 7.1 :39 Blood Glucose , Office (68326) Blood Glucose , Office 106 (Normal) Comments: non fasting :02 CALCIFIDIOL (23342) VIT D 25 Comments: PATIENT WAS FASTINGPERFORMED BY: XAPPmediaHawthorn Center6370 [facility] [id number] Vitamin D, 25-Hydroxy 29.8 ng/mL (Abnormal) Range: 30.0-100.0 Comments: Vitamin D deficiency has been defined by the [place] ofMedicine and an Endocrine Society practice guideline as alevel of serum 25-OH vitamin D less than 20 ng/mL (1,2).The Endocrine Society went on to further define vitamin Dinsufficiency as a level between 21 and 29 ng/mL (2).1. IOM ([place] of Medicine). 2010. Dietary reference intakes for calcium and D. [place]: The National Academies Press.2. Shelby MF, Sergio EAST, Anatoly MERCER, et al. Evaluation, treatment, and prevention of vitamin D deficiency: an Endocrine Society clinical practice guideline. JCEM. 2010; 96(7):1911-30. :02 TSH (80926) Comments: PATIENT WAS FASTINGPERFORMED BY: [employer] Gbmoyv7781 [facility] [id number] TSH 1.410 {uIU/mL} (Normal) Range: 0.450-4.500 :02 URINALYSIS, W/ MICRO (88908) Comments: PATIENT WAS FASTINGPERFORMED BY: XAPPmediaHawthorn Center6370 [facility] [id number] Microscopic Examination See below: (Normal) Nitrite, Urine Negative (Normal) Urobilinogen,Semi-Qn 0.2 mg/dL (Normal) Range: 0.0-1.9 Bilirubin Negative (Normal) Occult Blood 3+ (Abnormal) Ketones Negative (Normal) Glucose Negative (Normal) Protein 1+ (Abnormal) WBC Esterase 1+ (Abnormal) Appearance Clear (Normal) Urine-Color Yellow (Normal) pH 6.5 (Normal) Range: 5.0-7.5 Specific [place] 1.023 (Normal) Range: 1.005-1.030 :02 METABOLIC PANEL, COMPREHENSIVE Comments: PATIENT WAS FASTINGPERFORMED BY: Innov[facility] SiliconAtlantiCare Regional Medical Center, [facility] CampusZglpxy6539 [facility] [id number] (14861) ALT (SGPT) 16 [iU]/L (Normal) Range: 0-32 [...] Glucose, Serum 88 mg/dL (Normal) Range: 65-99 :02 CBC WITH MANUAL DIFF Comments: PATIENT WAS FASTINGPERFORMED BY: [facility]6370 [facility] [id number] Information: [id number] (64828) Immature Grans (Abs) 0.0 {x10E3/uL} (Normal) Range: [...] Range: 3.4-10.8 :11 Blood Glucose , Office (78875) Blood Glucose , Office 161 (Normal) Comments: nonfasting :11 HgA1C , Office (37964) HgA1C , Office 5.5 % (Normal) Range: 4.6 - 7.1 :46 Metabolic Panel, Comments: all copies to Dr. cruz Montero; PATIENT NOT FASTINGPERFORMED BY: LabCoAtlantiCare [facility] Medical [facility], [facility] CampusJkobyi1325 [facility] [id number] Information: [id number],NURSE DRAW Comprehensive (38668) ALT (SGPT) 22 [iU]/L (Normal) Range: 0-32 [...] Glucose, Serum 114 mg/dL (Abnormal) Range: 65-99 1-Zxa-488970:46 TSH (72433) Comments: PATIENT NOT FASTINGPERFORMED BY: [facility] Xrpcpb3416 [facility] [id number] TSH 0.648 {uIU/mL} (Normal) Range: 0.450-4.500 1-Vdg-092653:46 CBC (Auto) (01943) Comments: PATIENT NOT FASTINGPERFORMED BY: [facility] Tizxcq4848 [facility] [id number] Platelets 281 {x10E3/uL} (Normal) Range: 155-379 RDW [...] Range: 4.4-11.0 :49 Blood Glucose , Office (11413) Blood Glucose , Office 87 (Normal) :49 HgA1C , Office (25325) HgA1C , Office 5.6 % (Normal) Range: 4.6 - 7.1 6-Hmb-770363:11 Urinalysis, Office (21529) UA - BILIRUBIN Negative (Normal) UA - BLOOD Non Hemolyzed Trace (Normal) UA - GLUCOSE Negative (Normal) UA - KETONES Negative mg/dL (Normal) UA - LEUKOCYTE ESTERASE Trace (Normal) UA - NITRITE Negative (Normal) UA - PH 7.0 (Normal) UA - PROTEIN Negative mg/dL (Normal) UA - SPECIFIC GRAVITY 1.020 (Normal) URINE UROBILINGN JAYDEN TIMED Normal mg/dL (Normal) 21-Dec-20129:57 Blood Glucose , Office (75357) Blood Glucose , Office 73 (Normal) 56-Mms-161878:27 CALCIUM, IONIZED (54199) Comments: PATIENT NOT FASTINGPERFORMED BY: [employer] Nicifm3621 [facility] [id number] Information: [id number] Calcium, Ionized, Serum 6.1 mg/dL (Abnormal) Range: 4.5-5.6 67-Abk-619342:08 URINE RUBENS CULTURE-IDENTIFICATN Comments: PATIENT NOT FASTINGPERFORMED BY: [employer] [facility] Zfflvr4901 [facility] [id number] Information: [id number] (04502) Result 1 CNSNSS (Normal) Comments: Coagulase negative [...] report Culture,Comprehe (Normal) nsive :45 Urinalysis, Office (39167) UA - BILIRUBIN Negative (Normal) UA - [...] CULTURE-JAYDEN COL Comments: PATIENT NOT FASTINGPERFORMED BY: Mural.lyAtrium Health [facility] [id number] Information: SRC:UR ADD [id number] COUNT (69946) Result 1 MUG (Normal) Comments: Mixed urogenital flora50,000-100,000 colony forming units per mL Urine Final report (Normal) Culture,Comprehensive :44 Urinalysis, Office (04286) UA - BILIRUBIN Negative (Normal) UA - BLOOD Hemolyzed Large (Normal) UA - GLUCOSE Negative (Normal) UA - KETONES Negative mg/dL (Normal) UA - LEUKOCYTE ESTERASE Trace (Normal) UA - NITRITE Negative (Normal) UA - PH 6.0 (Normal) UA - PROTEIN Negative mg/dL (Normal) UA - SPECIFIC GRAVITY 1.020 (Normal) URINE UROBILINGN JAYDEN TIMED Normal mg/dL (Normal) 64-Gyg-03027:10 PARATHORMONE (95142) Comments: PATIENT NOT FASTINGPERFORMED BY: Datometryrp Flmfei8018 [facility]WaveAt[facility] [id number] PTH, Intact 36 pg/mL (Normal) Range: 15-65 :10 CALCIUM, IONIZED (73092) Comments: PATIENT NOT FASTINGPERFORMED BY: Datometryrp Hglojo2946 [facility]WaveAt[facility] [id number] Information: [id number] Calcium, Ionized, Serum 6.3 mg/dL (Abnormal) Range: 4.5-5.6 1-Scy-881935:17 TSH (23799) Comments: PATIENT NOT FASTINGPERFORMED BY: [facility]6370 [facility] [id number] TSH 1.200 {uIU/mL} (Normal) Range: 0.450-4.500 7-Pbl-019906:17 Protein Electrophoresis, Comments: PATIENT NOT FASTINGPERFORMED BY: [facility]6370 [facility] [id number] Information: [id number] Serum (SPEP) (90017) Please note: SPRCS (Normal) Comments: Protein electrophoresis scan will follow via computer, mail, orcourier delivery. A/G Ratio 1.8 (Normal) Range: 0.7-2.0 Globulin, Total 2.4 g/dL (Normal) Range: 2.0-4.5 M-Nelson Not Observed g/dL (Normal) Gamma Globulin 0.7 g/dL (Normal) Range: 0.5-1.6 Beta Globulin 0.9 g/dL (Normal) Range: 0.6-1.3 Epqhb-0-Glmlbfax 0.6 g/dL (Normal) Range: 0.4-1.2 Aaxrs-0-Nzxdxogx 0.2 g/dL (Normal) Range: 0.1-0.4 Albumin 4.2 g/dL (Normal) Range: 3.2-5.6 Protein, Total, Serum 6.6 g/dL (Normal) Range: 6.0-8.5 0-Wlr-165945:17 CALCIFEDIOL (61761) Comments: PATIENT NOT FASTINGPERFORMED BY: [facility]6370 [facility] [id number] Vitamin D, 25-Hydroxy 35.7 ng/mL (Normal) Range: 30.0-100.0 Comments: Vitamin D deficiency has been defined by the [place] ofMedicine and an Endocrine Society practice guideline as alevel of serum 25-OH vitamin D less than 20 ng/mL (1,2).The Endocrine Society went on to further define vitamin Dinsufficiency as a level between 21 and 29 ng/mL (2).1. IOM ([place] of Medicine). 2010. Dietary reference intakes for calcium and D. [place]: The National Academies Press.2. Shelby MF, Sergio [place], Anatoly MERCER, et al. Evaluation, treatment, and prevention of vitamin D deficiency: an Endocrine Society clinical practice guideline. JCEM. 2010; 96(7):1911-30. :17 PHOSPHORUS (41171) Comments: PATIENT NOT FASTINGPERFORMED BY: [facility] Mvwujt4467 Mistry RoadDublin [place] [id number] Phosphorus, Serum 3.6 mg/dL (Normal) Range: 2.5-4.5 :17 PARATHORMONE (25053) Comments: PATIENT NOT FASTINGPERFORMED BY: [facility] Eyackc9906 [address] [facility] CenterD[facility] [place] [id number] PTH, Intact 51 pg/mL (Normal) Range: 15-65 2-Bbp-639475:10 Parathyroid Hormone-related Comments: PATIENT NOT FASTINGPERFORMED BY: [employer] J[address]prbnxhzqpxk[address] [place] [address] [id number] Peptide (PTH-rP) (79577) PTHrP (PTH-Related Peptide) <0.74 pmol/L (Normal) Comments: Reference Range:All Ages: <2.0The PTHrP assay should not be used to exclude cancer orscreen tumor patients for humoral hypercalcemia ofmalignancy (HHM). The results should always be assessed inconjun ction with the patient's medical history, clinicalexamination, and other findings. If test results areclinically discordant, please contact the laboratory. :17 CALCIUM, IONIZED (83503) Comments: PATIENT NOT FASTINGPERFORMED BY: [facility] Ivhsjz4427 [address] [facility] CenterD[facility] [place] [id number] Calcium, Ionized, Serum 6.2 mg/dL (Abnormal) Range: 4.5-5.6 3-Apu-820305:10 URINE RUBENS CULTURE-IDENTIFICATN Comments: PATIENT NOT FASTINGPERFORMED BY: [facility] Kcfnml6382 [facility] [place] [id number] Information: [id number] (39124) Result 1 MUG (Normal) Comments: Mixed urogenital flora50,000-100,000 colony forming units per mL Urine Final report (Normal) Culture,Comprehensive :36 Urinalysis, Office (63216) UA - BILIRUBIN Negative (Normal) UA - [...] Calcium, Serum 10.9 mg/dL Comments: PERFORMED BY: [employer] [facility] CenterLixte Biotechnology HoldingsAtrium Health [facility] [id number] :14 (Abnormal) Range: 8.6-10.2 :14 CBC With Differential/Platelet Comments: PERFORMED BY: Mural.lyAt[facility] [id number] Immature Grans (Abs) 0.0 {x10E3/uL} (Normal) Range: [...] 3.77-5.28 WBC 6.1 {x10E3/uL} (Normal) Range: 4.0-10.5 1-Dgn-918562:14 Celiac Disease Comprehensive Comments: PERFORMED BY: Mural.lyAt[facility] [id number] Immunoglobulin A, Qn, 231 mg/dL (Normal) Range: [...] A1c 5.6 % (Normal) Comments: PERFORMED BY: OopsLabox DialogicCataw[facility] [id number] 0:14 Range: 4.8-5.6 Comments: . Increased risk for diabetes: 5.7 - 6.4 Diabetes: >6.4 Glycemic control for adults with diabetes: <7.0 PTH, Intact 48 pg/mL (Normal) Comments: PERFORMED BY: TRUDY Utterz Fede Ferrera [place] [id number] 0:14 Range: 15-65 20-Sep-20129:36 HEPATOBILLIARY IMG W/PHARM INT Radiology Report See [...] period. The post CCK gallbladder ejection fraction eknfsyidpuug31 minutes following Cholecystokinin administration was noted to [...] Elmore M.D.September 20, 2012 at 10:16:57 PM [id number] Signed RB/RB If you are the referring physician and would like to consult with theradiologist who provided this interpretation, please contact Margoth Luna at [phone]. If this radiologist is unavailable, you will bedirected to another radiologist to assist. If you are a patient with a question regarding this report, pleasecontactyour referring physician directly. Professional Interpretation Provided By: [employer] [facility], Phone , These documents contain legally [...] on 09/20/122217 Sign by: Sd Elmore DO :36 GALLBLADDER Radiology Report See Note (Normal) Comments: [...] Chan M.D.September 09, 2012 at 10:19:06 AM [id number] 48Electronically Signed GP/GP If you are the referring physician and would like to consult with theradiologist who provided this interpretation, please contact Kyara Medina. at [phone]. I f this radiologist is unavailable, youwill be directed to another radiologist to assist. If you are a patient with a question regarding this report, pleasecontactyour referring physician directly. Profe ssional Interpretation Provided By: [employer], Phone , These documents contain legally protected [...] documents. Dictated on 09/09/12 0849 by Rocio FLORES,Shireenranscribed on 09/09 1115 by ITS IMPORTSign by Suleman Chan MD on 09/09/12 1116 Sign by: Suleman Chan MD 70-Bcd-949584:55 Amylase (92422) Comments: PATIENT NOT FASTINGPERFORMED BY: [employer] Jkqlwc6011 [facility]Wave[facility] [id number] Amylase, Serum 83 U/L (Normal) Range: 31-124 43-Jqt-935872:55 Lipase (31163) Comments: PATIENT NOT FASTINGPERFORMED BY: [employer] Nqfwjp0869 [facility]WaveAt[facility] [id number] Lipase, Serum 49 U/L (Normal) Range: 0-59 11-Qzg-951325:55 Metabolic Panel, Comprehensive Comments: PATIENT NOT FASTINGPERFORMED BY: [employer] Mgvrih2305 [facility]Wave[facility] [id number] (71904) ALT (SGPT) 27 [iU]/L (Normal) Range: 0-32 [...] Glucose, Serum 72 mg/dL (Normal) Range: 65-99 12-Dmr-993258:55 CBC with manual diff (07163) Comments: PATIENT NOT FASTINGPERFORMED BY: [facility] Kfgpou[address] [facility] [id number] Immature Grans (Abs) 0.0 {x10E3/uL} (Normal) Range: [...] 3.77-5.28 WBC 5.8 {x10E3/uL} (Normal) Range: 4.0-10.5 61-Vla-555761:24 URINE RUBENS CULTURE-IDENTIFICATN Comments: PATIENT NOT FASTINGPERFORMED BY: [employer] UniverseWestern [facility] Center [id number] Information: SRC: URINE ([id number]) Result 1 MUG (Normal) Comments: Mixed urogenital flora1,000 Colonies/mL Urine Culture,Comprehensive Final report (Normal) 6-Lde-820048:49 URINE RUBENS CULTURE-JAYDEN COL Comments: PATIENT NOT FASTINGPERFORMED BY: XAPPmediaSoutheast [facility] Jaajme3534 [facility] [id number] Information: SRC:UR [id number] COUNT (48054) Result 2 ENTECC (Normal) Comments: Enterobacter cloacae [...] report (Normal) Culture,Chaparro holland 22-Aug-20129:14 Urinalysis, Office (61646) UA - BILIRUBIN Negative (Normal) UA - BLOOD Negative (Normal) UA - GLUCOSE Negative (Normal) UA - KETONES Negative mg/dL (Normal) UA - LEUKOCYTE ESTERASE Small (Normal) UA - NITRITE Negative (Normal) UA - PH 6.0 (Normal) UA - PROTEIN Negative mg/dL (Normal) UA - SPECIFIC GRAVITY 1.015 (Normal) URINE UROBILINGN JAYDEN TIMED Normal mg/dL (Normal) 29-Fby-176847:56 Urinalysis, Office (41058) UA - BILIRUBIN Negative (Normal) UA - BLOOD Negative (Normal) UA - GLUCOSE Negative (Normal) UA - KETONES Negative mg/dL (Normal) UA - LEUKOCYTE ESTERASE Trace (Normal) UA - NITRITE Negative (Normal) UA - PH 7.0 (Normal) UA - PROTEIN Negative mg/dL (Normal) UA - SPECIFIC GRAVITY 1.025 (Normal) URINE UROBILINGN JAYDEN TIMED Normal mg/dL (Normal) 19-Jul-20128:13 CALCIFEDIOL (79800) Comments: PATIENT WAS FASTINGPERFORMED BY: LabCoAtlantiCare [facility], [facility] CampusOatobf7816 [facility] [id number] Vitamin D, 25-Hydroxy 32.6 ng/mL (Normal) Range: 30.0-100.0 Comments: Vitamin D deficiency has been defined by the [place] ofMedicine and an Endocrine Society practice guideline as alevel of serum 25-OH vitamin D less than 20 ng/mL (1,2).The Endocrine Society went on to further define vitamin Dinsufficiency as a level between 21 and 29 ng/mL (2).1. IOM ([place] of Medicine). 2010. Dietary reference intakes for calcium and D. [place]: The National Academies Press.2. Shelby MF, Sergio [place], Anatoly MERCER, et al. Evaluation, treatment, and prevention of vitamin D deficiency: an Endocrine Society clinical practice guideline. JCEM. 2010; 96(7):1911-30. :13 TSH (86023) Comments: PATIENT WAS FASTINGPERFORMED BY: [employer] Kzvcuh1485 [facility] [id number] TSH 1.590 {uIU/mL} (Normal) Range: 0.450-4.500 :13 MICROALBUMIN: CREATININE RATIO Comments: PATIENT WAS FASTINGPERFORMED BY: [employer] Ytpbbx7039 [facility] [id number] (30572) AND (81755) Creatinine, Urine 69.0 mg/dL (Normal) Range: 15.0-278.0 Microalb/Creat Ratio 9.3 {mg/g_creat} (Normal) Range: 0.0-30.0 Microalbumin, Urine 6.4 ug/mL (Normal) Range: 0.0-17.0 :13 METABOLIC PANEL, COMPREHENSIVE Comments: PATIENT WAS FASTINGPERFORMED BY: Innovative SiliconAtlantiCare Regional Medical Center, [facility] CampusHgdput9026 [facility] [id number] (74843) ALT (SGPT) 25 [iU]/L (Normal) Range: 0-32 [...] mg/dL (Normal) Range: 65-99 :13 LIPID PANEL (91944) Comments: PATIENT WAS FASTINGPERFORMED BY: [employer] Edvrpj3928 [facility] [id number] LDL/HDL Ratio 1.0 {ratio_units} (Normal) Range: 0.0-3.2 [...] MANUAL DIFF Comments: PATIENT WAS FASTINGPERFORMED BY: [employer] Dkqvhp6864 [facility] [id number] Information: [id number] (69278) Immature Grans (Abs) 0.0 {x10E3/uL} (Normal) Range: [...] {x10E3/uL} (Normal) Range: 4.0-10.5 :05 Urinalysis, Office (18026) UA - BILIRUBIN Negative (Normal) UA - [...] Normal mg/dL (Normal) :02 HgA1C , Office (98429) HgA1C , Office 5.4 % (Normal) Range: 4.6 - 7.1 :02 Blood Glucose , Office (18564) Blood Glucose , Office 136 (Normal) Comments: has eaten 24-Qvl-371041:00 Blood Glucose , Office (83828) Blood Glucose , Office 96 (Normal) 13-Xdr-165352:00 HgA1C , Office (20808) HgA1C , Office 5.3 % (Normal) Range: 4.6 - 7.1 18-Qgv-887456:00 Urinalysis, Office (88936) UA - BILIRUBIN Negative (Normal) UA - BLOOD Negative (Normal) UA - GLUCOSE Negative (Normal) UA - KETONES Negative mg/dL (Normal) UA - LEUKOCYTE ESTERASE Trace (Normal) UA - NITRITE Negative (Normal) UA - PH 6.0 (Normal) Comments: 5.5 UA - PROTEIN Negative mg/dL (Normal) UA - SPECIFIC GRAVITY 1.025 (Normal) URINE UROBILINGN JAYDEN TIMED Normal mg/dL (Normal) 38-Hef-97704:00 URINE RUBENS CULTURE-JAYDEN COL Comments: PATIENT NOT FASTINGPERFORMED BY: [facility] [id number] [facility] [id number] Information: SRC:UR [id number] COUNT (76427) Result 1 ECV (Normal) Comments: Escherichia coli, [...] S Urine Final report (Normal) Culture,Comprehensiv e 01-Nnl-91997:49 Urinalysis, Office (98503) UA - BILIRUBIN Negative (Normal) UA - BLOOD Non Hemolyzed Moderate (Normal) UA - GLUCOSE Negative (Normal) UA - KETONES Negative mg/dL (Normal) UA - LEUKOCYTE ESTERASE Small (Normal) UA - NITRITE Negative (Normal) UA - PH 5.0 (Normal) Comments: 5.5 UA - PROTEIN Negative mg/dL (Normal) UA - SPECIFIC GRAVITY 1.025 (Normal) Comments: 1.030 URINE UROBILINGN JAYDEN TIMED Normal mg/dL (Normal) 82-Trg-607750:15 Creatine Kinase Total (93327) Comments: PATIENT NOT FASTINGPERFORMED BY: [facility] [id number] [facility] [place] [id number] Creatine Kinase,Total,Serum 145 U/L (Normal) Range: 24-173 40-Sgo-175792:15 Sed Rate Erythrocyte (74929) Comments: PATIENT NOT FASTINGPERFORMED BY: CB [facility] [id number] [facility] [place] [id number] Sedimentation Rate-Westergren 2 mm/h (Normal) Range: 0-40 21-Sgh-611463:15 CALCIFEDIOL (56551) Comments: PATIENT NOT FASTINGPERFORMED BY: [facility] [id number] [facility] [id number] Information: [id number] Vitamin D, 25-Hydroxy 40.9 ng/mL (Normal) Range: 30.0-100.0 Comments: Vitamin D deficiency has been defined by the [place] ofMedicine and an Endocrine Society practice guideline as alevel of serum 25-OH vitamin D less than 20 ng/mL (1,2).The Endocrine Society went on to further define vitamin Dinsufficiency as a level between 21 and 29 ng/mL (2).1. IOM ([place] of Medicine). 2010. Dietary reference intakes for calcium and D. [place]: The National Academies Press.2. Shelby MF, Sergio [place], Anatoly MERCER, et al. Evaluation, treatment, and prevention of vitamin D deficiency: an Endocrine Society clinical practice guideline. JCEM. 2010; 96(7):1911-30. 53-Bsn-902022:15 PARATHORMONE (63909) Comments: PATIENT NOT FASTINGPERFORMED BY: [facility] [id number] [facility] [place] [id number] PTH, Intact 40 pg/mL (Normal) Range: 15-65 15-Pic-896042:01 BREAST UNILATERAL Radiology Report See Note (Normal) [...] Chan M.D.November 30, 2011 at 12:49:05 PM [id number] Signed GP/GP If you are the referring physician and would like to consult with [place] who provided this interpretation, please contact Margoth Medina at [phone]. If this radiologist is unavailable, youwill be directed to another radiologist to assist. If you are a patien t with a question regarding this report, pleasecontactyour referring physician directly. Professional Interpretation Provided By: [employer], Phone , Dictated on 1044 by Rocio FLORES,Yeyoscribed on 11/30/11 1254 by ITS IMPORTSign by Suleman Chan MD on 11/30/11 1255 Sign by: Suleman Chan MD 31-Hnv-03778:45 BILAT SCRN DIGITAL & CAD Radiology Report [...] M.D.November 25, 2011 at 9:44:08 AM ED [id number] Signed GP/GP If you are the referring physician and would like to consult with theradiologist who provided this interpretation, please contact Margoth Medina at . If this radiologist is unavailable, youwill be directed to another radiologist to assist. If you are a patient with a question regarding this report, pleasecontactyour referring physician [facility]. Professional Interpretation Provided By: [employer], Phone , Dictated on 11/25/11 0923 by Rocio FLORES,Yeyoscribed on 11/25/11 1136 by ITS IMPORTSign by Suleman Tadeo MD on 11/25/11 1137 Sign by: Suleman Chan MD 04-Rmw-64935:44 DEXA BONE DENSITY STUDY (HP) Radiology Report See Note (Normal) Comments: PROCEDURE: DUAL ENERGY X-RAY ABSORPTIOMETRY / DEXA. REASON FOR EXAM: Female, 66 years old. The patient is postmenopausal. TECHNIQUE: Bone Mineral Density (BMD) measurements of lumbar s pine krish sparrow. The patient is status post bilateral total [...] M.D.November 25, 2011 at 11:00:04 AM ED [id number] Signed GP/GP If you are the referring physician and would like to consult with theradiologist who provided this interpretation, please contact Margoth Medina at . If this radiologist is unavailable, youwill be directed to another radiologist to assist. If you are a patient with a question regarding this report, pleasecontactyour referring physician dire [facility]. Professional Interpretation Provided By: [employer], Phone , Dictated on 11/25/11 0845 by Fern Chan MDribed on 11/25/11 1115 by ITS IMPORTSign by Suleman Tadeo MD on 11/25/11 1116 Sign by: Suleman Chan MD 23-Djo-95777:38 Microscopic Examination Comments: PATIENT WAS FASTINGPERFORMED BY: [facility] [id number] Bacteria Few (Normal) Mucus Threads Present (Normal) Epithelial Cells (non renal) 0-10 {/hpf} (Normal) Range: 0 - 10 RBC 0-3 {/hpf} (Normal) Range: 0 - 3 WBC 0-5 {/hpf} (Normal) Range: 0 - 5 :38 Request Problem Comments: PATIENT WAS FASTINGPERFORMED BY: [facility] [id number] :38 TSH (28652) Comments: PATIENT WAS FASTINGPERFORMED BY: [facility] [place] [address] [id number] TSH 1.010 {uIU/mL} (Normal) Range: 0.450-4.500 :38 URINALYSIS, W/ MICRO (04316) Comments: PATIENT WAS FASTINGPERFORMED BY: [facility] [id number] Microscopic Examination See below: (Normal) Microscopic Examination MICRON (Normal) Comments: Microscopic follows if indicated. Nitrite, Urine Negative (Normal) Urobilinogen,Semi-Qn 0.2 mg/dL (Normal) Range: 0.0-1.9 Bilirubin Negative (Normal) Occult Blood Negative (Normal) Ketones Negative (Normal) Glucose Negative (Normal) Protein Negative (Normal) WBC Esterase Negative (Normal) Appearance Cloudy (Abnormal) Urine-Color Yellow (Normal) pH 7.5 (Normal) Range: 5.0-7.5 Specific [place] 1.019 (Normal) Range: 1.005-1.030 :38 MICROALBUMIN: CREATININE RATIO Comments: PATIENT WAS FASTINGPERFORMED BY: [place] 3387070 [facility] [id number] (05066) AND (70861) :38 METABOLIC PANEL, COMPREHENSIVE Comments: PATIENT WAS FASTINGPERFORMED BY: [address] [id number] (85191) ALT (SGPT) 25 [iU]/L (Normal) Range: 0-40 [...] Glucose, Serum 84 mg/dL (Normal) Range: 65-99 06-Mqv-06777:38 LIPID PANEL (60414) Comments: PATIENT WAS FASTINGPERFORMED BY: [facility] CampusYgfkub6250 [facility] [id number] LDL/HDL Ratio 1.0 {ratio_units} (Normal) Range: 0.0-3.2 LDL Cholesterol Calc 66 mg/dL (Normal) Range: 0-99 VLDL Cholesterol Tab 38 mg/dL (Normal) Range: 5-40 HDL Cholesterol 65 mg/dL (Normal) Comments: According to ATP-III Guidelines, HDL-C >59 mg/dL is considered anegative risk factor for CHD. Triglycerides 191 mg/dL (Abnormal) Range: 0-149 Cholesterol, Total 169 mg/dL (Normal) Range: 100-199 :38 CBC WITH MANUAL DIFF (86818) Comments: PATIENT WAS FASTINGPERFORMED BY: [facility] CampusRefnya9968 [facility] [id number] Immature Grans (Abs) 0.0 {x10E3/uL} (Normal) Range: [...] (Normal) Range: 4.0-10.5 :23 HgA1C , Office (40161) HgA1C , Office 5.7 % (Normal) Range: 4.6 - 7.1 :23 Blood Glucose , Office (19490) Blood Glucose , Office 93 (Normal) Plan of Care Name Dates Details Instructions Hypothyroidism : Continue Current Prescription(s) Indication: Hypothyroidism Type II diabetes mellitus, well controlled : [...] Indication: Fatty liver Cervical pain : Reviewed Floor Framer Letter- in PT Indication: Cervical pain Breast [...] daytime sleepiness Excessive daytime sleepiness : Reviewed Floor Framer Letter Indication: Excessive daytime sleepiness Current nonsmoker [...] med - do hiac- sees lul in [place] so due in btw nad sees him [...] movement disorder Bruising : Follow up with psychiatric aide instructor Indication: Bruising Frequent falls : Eprescribed prescriptions [...] : Follow up in 1 week with [facility] on a Wednesday Indication: Diabetic neuropathy [...] 3 months Indication: Hypercalcemia Planned Observations TSH (67924)Indication: Hypothyroidism On: :08 Request URINALYSIS, W/ MICRO (21199)Indication: Type II diabetes mellitus, well controlled On: :08 Request MICROALBUMIN: CREATININE RATIO (46268) AND (35876)Indication: Type II diabetes mellitus, well controlled On: :08 Request METABOLIC PANEL, COMPREHENSIVE (09232)Indication: Type II diabetes mellitus, well controlled On: :08 Request LIPOPROTEIN, BLD, BY NMR (65494)Indication: Type II diabetes mellitus, well controlled On: :08 Request CBC W/AUTO DIFF WBC (08738)Indication: Type II diabetes mellitus, well controlled On: :08 Request Influenza A&B Viral Culture (48531)Indication: Chills On: 6-Aja-102355:08 Request Rapid Flu (00257 x 2)Indication: Cough On: 9-Dyg-356195:07 Request SSRPT-QGBKNUDVQKR-BDIQV (05779)Indication: Fatty liver On: 0-Cdg-422657:14 Request Anti-TPO Antibody (91631)Indication: Hypothyroidism On: : Request T4, FREE (THYROXINE) (62006)Indication: Hypothyroidism On: Request T3, FREE (TRIDOTHYRONINE) (08386)Indication: Hypothyroidism On: : Request TSH (52495)Indication: Hypothyroidism On: : Request URINALYSIS, W/ MICRO (40509)Indication: Hypertension, benign On: : Request MICROALBUMIN: CREATININE RATIO (36007) AND (18653)Indication: Diabetes mellitus with diabetic neuropathy On: : Request METABOLIC PANEL, COMPREHENSIVE (61551)Indication: Hypertension, benign On: Request CBC W/AUTO DIFF WBC (10221)Indication: Hypertension, benign On: : Request LIPID PANEL (55838)Indication: Hyperlipidemia, unspecified On: : Request CALCIFIDIOL (42799) VIT D 25Indication: Vitamin D deficiency disease On: :11 Request CALCIFIDIOL (42994) VIT D 25Indication: Vitamin D deficiency disease On: 58-Vvn-587872:12 Request URINALYSIS, W/ MICRO (59280)Indication: Diabetes mellitus with diabetic neuropathy On: 31-Tvp-585397:11 Request MICROALBUMIN: CREATININE RATIO (46481) AND (46317)Indication: Diabetes mellitus with diabetic neuropathy On: 30-Qcg-956887:11 Request METABOLIC PANEL, COMPREHENSIVE (82640)Indication: Diabetes mellitus with diabetic neuropathy On: : Request CBC W/AUTO DIFF WBC (17915)Indication: Diabetes mellitus with diabetic neuropathy On: : Request LIPID PANEL (42558)Indication: Hyperlipidemia, unspecified On: : Request TSH (52755)Indication: Hypothyroidism On: 28-Jzk-537752:11 Request Thin Prep Pap (61376)Indication: Encounter for screening for cervical cancer (Renamed from Encounter for screening for malignant neoplasm of cervix) On: 74-Buw-62693:58 Request HgA1C , Office (05566)Indication: Diabetes mellitus with diabetic neuropathy On: :30 Request HPV automatic (50038)Indication: Screening for HPV (human papillomavirus) (Renamed from Encounter for screening for human papillomavirus (HPV)) On: 45-Nqp-09127:25 Request LIPID PANEL (12525)Indication: Hypertension, benign On: 16-Pqa-988560:19 Request Comments: in three months (approximately) copy to Dr. freire METABOLIC PANEL, COMPREHENSIVE (40050)Indication: Hypertension, benign On: :19 Request T3, TOTAL (TRIDOTHYRONINE) (29466)Indication: Hypothyroidism On: :08 Request T4, TOTAL (21629)Indication: Hypothyroidism On: 6-Vhn-067478:08 Request TSH (THYROID STIMULATING HORMONE) (32723)Indication: Hypothyroidism On: 4-Thq-829277:58 Request PARATHORMONE (40970)Indication: Hypercalcemia On: :58 Request CALCIUM, IONIZED (34404)Indication: Hypercalcemia On: 4-Fml-068924:58 Request Metabolic Panel, Basic (91928)Indication: Diabetes mellitus with diabetic neuropathy On: 8-Pbx-578663:44 Request Comments: recheck in 2-3 weeks on losartan CALCIFIDIOL (59796) VIT D 25Indication: Vitamin D deficiency disease On: 2-Kbf-240324:33 Request TSH (22503)Indication: Hypothyroidism On: 5-Nls-335911:32 Request MICROALBUMIN: CREATININE RATIO (06270) AND (77303)Indication: Diabetes mellitus with diabetic neuropathy On: 3-Wis-004080:32 Request METABOLIC PANEL, COMPREHENSIVE (29063)Indication: Diabetes mellitus with diabetic neuropathy On: 9-Qxb-971432:32 Request LIPID PANEL (52071)Indication: Diabetes mellitus with diabetic neuropathy On: 6-Ooe-114986:32 Request CBC with auto diff (94081)Indication: Diabetes mellitus with diabetic neuropathy On: 7-Fzj-894479:32 Request PARATHORMONE (94636)Indication: Abnormal blood findings On: :18 Request URINE RUBENS CULTURE-JAYDEN COL COUNT (56566)Indication: Bacteria in urine On: :18 Request LIPID PANEL (77923)Indication: Diabetes mellitus with diabetic neuropathy On: 24-May-20138:23 Request CBC WITH MANUAL DIFF (22086)Indication: Melena On: 6-Kaw-505539:25 Request PARATHORMONE (52651)Indication: Hypercalcemia On: :21 Request CALCIUM, IONIZED (71865)Indication: Hypercalcemia On: : Request CALCIFIDIOL (88567) VIT D 25Indication: Vitamin D deficiency disease On: :20 Request MICROALBUMIN: CREATININE RATIO (80017) AND (15457)Indication: Diabetes mellitus type II, controlled On: :19 Request METABOLIC PANEL, COMPREHENSIVE (89050)Indication: Diabetes mellitus type II, controlled On: :19 Request LIPID PANEL (11963)Indication: Diabetes mellitus type II, controlled On: :19 Request CBC WITH MANUAL DIFF (46317)Indication: Diabetes mellitus type II, controlled On: :19 Request HgA1C , Office (54694)Indication: Diabetes mellitus type II, controlled On: 2-Lfu-362510:35 Request Comments: 5.6 Hemoglobin Glyclated (HGB A1C) (31867)Indication: Diabetes mellitus type II, controlled On: :35 Request CBC (Auto) (93839)Indication: Abdominal pain, acute, right upper quadrant On: :33 Request PARATHORMONE (28361)Indication: Hypercalcemia On: :33 Request Calcium Serum (94107)Indication: Hypercalcemia On: :33 Request FLURESCNT ANTIB SCRN EA (37703) celiac profileIndication: Abdominal pain, acute, right upper quadrant On: :32 Request IMMUNOASSAY, ANALYTE (NON-INFECT) (13664) celiac profileIndication: Abdominal pain, acute, right upper quadrant On: :32 Request IGA/IGD/IGG/IGM-EACH (21241) celiac profileIndication: Abdominal pain, acute, right upper quadrant On: 17-Oct-20129:32 Request CELIAC DISEASE AB 863577 (64870)Indication: Abdominal pain On: 40-Rxw-558559:17 Request Celiac Disease Comphrehensive Profile (53170)Indication: Abdominal pain On: 38-Lan-101082:17 Request Troponin I (33236)Indication: Chest pain On: 28-Hii-165814:31 Request CPK MB FRACTION (71280)Indication: Chest pain On: 09-Cym-002283:31 Request CREATINE KINASE TOTAL (78565)Indication: Chest pain On: 90-Ggu-266045:31 Request TSH (THYROID STIMULATING HORMONE) (48121)Indication: Panic attack On: 21-Gki-360243:27 Request CALCIFEDIOL (69894)Indication: Vitamin D deficiency disease On: 11-Tid-172523:18 Request TSH (94865)Indication: Hypothyroidism On: 18-Ntw-408493:16 Request MICROALBUMIN: CREATININE RATIO (44120) AND (47706)Indication: Diabetes mellitus type II, controlled On: 48-Zhz-111619:16 Request METABOLIC PANEL, COMPREHENSIVE (28872)Indication: Diabetes mellitus type II, controlled On: 75-Ijx-463864:16 Request LIPID PANEL (11948)Indication: Diabetes mellitus type II, controlled On: 13-Wmd-078645:16 Request CBC WITH MANUAL DIFF (89983)Indication: Diabetes mellitus type II, controlled On: 54-Zkw-591341:16 Request URINE RUBENS CULTURE-IDENTIFICATN (97163)Indication: Urgency of urination On: 79-Elr-270897:14 Request CBC with manual diff (49709)Indication: Fall from high place, initial encounter On: 22-Jan-20129:51 Request Comments: drawn in office Calcium Serum (66497)Indication: Fall from high place, initial encounter On: :51 Request Comments: drawn in office Metabolic Panel, Comprehensive (97649)Indication: Fall from high place, initial encounter On: 22-Jan-20129:51 Request Comments: drawn in office TSH (76152)Indication: Fall from high place, initial encounter On: 22-Jan-20129:50 Request Comments: drawn in office, sent to hospital Calcium Serum (63215)Indication: Hypercalcemia On: 38-Nqj-690691:42 Request Planned Procedures ELECTROCARDIOGRAM, COMPLETE (ECG) On: 27-Apr-2018 Intent (24435)By: Octavia Nichols DO Comments: nsr no acute chg -- Octavia HOGUE Flu Vaccine (Quadrivalent) 61835Tb: On: 18-Jan-2018 Intent Octavia Nichols DO, DO, Comments: Lot #[id number]/30/19Site-Rt dltd, IMDose prefilled syringegiven by: Faye GARCIAVIS reviewed and ABN signed Octavia XXKR-DM-FSUR BEHAVIORAL COUNSELING FOR On: 18-Jan-2018 Intent OBESITY, 15 MINUTES (G0447)By: Octavia Nichols DO, DO, Kathleen Radiology - Wrist - RightBy: Ciesa On: 12-Jan-2018 Intent Aylin GRANT Radiology - Wrist - LeftBy: Ciesa MOTOR COACH CHAUFFEUR, On: 12-Jan-2018 Intent Antonella DIAGNOSTIC BILATERAL MAMMOGRAM On: 10-Dec-2017 Intent (83719)By: Octavia Ncihols DO, DO, Kathleen Ultrasound - Breast - RightBy: On: 07-Dec-2017 Intent Karen Gandhi ELECTROCARDIOGRAM, COMPLETE (ECG) On: 25-Oct-2017 Intent (46674)By: Octavia Nichols DO Comments: sinus frankie- poor Rwave progression/ no acute chg DO, Octavai DRAIN/INJECT SMALL JOINT OR BURSA On: 07-Oct-2017 Intent ()By: Octavia Nichols DO, DO, Kathleen Kenalog Injection, 10 mgm (J3301)By: On: 07-Oct-2017 Intent Octavia Nichols DO, DO, Comments: 1/2cc kenalog 1/2cc marcaine injection for left thumblot: AAT 6383exp: 12/2018performed by DO Octavia Romano DRAIN/INJECT SMALL JOINT OR BURSA On: 05-Oct-2017 Intent ()By: Octavia Nichols DO Comments: R base thumb trigger and oa Octavia HOGUE Radiology - Chest- PA and LatBy: On: 26-Aug-2017 Intent Octavia Nichols DO, DO, Kathleen Spirometry (93782)By: Simone HOGUE, On: 26-Aug-2017 Intent Octavia Dennison DO Comments: normal -- will not do inhaler at this time for cough Echo CompleteBy: Octavia Nichols DO On: 02-Jul-2017 Intent Octavia Nichols DO US DOPPLER CAROTID BILATERAL On: 02-Jul-2017 Intent (26602)By: Octavia Nichols DO, DO, Kathleen Spirometry (69698)By: Simone HOGUE, On: 20-May-2017 Intent Octavia Dennison DO Comments: normal Wax Currettes (71602)By: Munira RATLIFF, On: 12-May-2017 Intent Loli Ear Irrigation (82791)By: Munira RATLIFF, On: 12-May-2017 Intent Loli TDAP VACCINE >7 IM (77315)By: Simone On: 23-Mar-2017 Intent Octavia HOGUE DO, Kathleen Comments: 5H2H2 lot and exp 04/29/19 lt arm ELECTROCARDIOGRAM, COMPLETE (ECG) On: 23-Mar-2017 Intent (50261)By: Octavia Nichols DO Comments: nsr no acute cgh Octavia HOGUE Flu Vaccine (Quadrivalent) 13035Zn: On: 13-Jan-2017 Intent Octavia Nichols DO, DO, Comments: Lot:[id number]:11/01/17Dose:0.5mLRoute:IMSite:L DltdGiven By:DAVID signed Octavia PNEUM VAC ADLT/IMUMNOSPR, SBC/INTRM On: 28-Dec-2016 Intent (48298)By: Octavia Nichols DO Comments: lot: [id number]: 12/18/17ite/route: L del/IMamt: 0.5mLVIS signed when applicableChelseaJAY JAY DO, Kathleen VQES-HV-MSMD BEHAVIORAL COUNSELING FOR On: 28-Dec-2016 Intent OBESITY, 15 MINUTES (G0447)By: Octavia Nichols DO, DO, Kathleen SCREENING DIGITAL TOMOSYNTHESIS OF On: 28-Dec-2016 Intent BREAST (19692)By: Octavia Nichols DO, DO, Kathleen Radiology - Ankle - LeftBy: Rigo GRANT, On: 02-Dec-2016 Intent Aylin Jules CurettesBy: Octavia Nichols DO On: 26-Oct-2016 Intent Octavia Nichols DO Ear Irrigation (94094)By: Simone HOGUE, On: 26-Oct-2016 Intent Octavia Dennison DO Comments: R ear gooey lots of wax removed currette used- canals red but not inflamed when done so told her to call if pain develpied DRAIN/INJECT SMALL JOINT OR BURSA On: 10-Jun-2016 Intent ()By: Octavia Nichols DO, DO, Octavia X-RAY OF HAND, THREE VIEWS (19982)By: On: 08-Jun-2016 Intent Octavia Nichols DO, DO, Comments: attention base of thumb Ocatvia X-RAY OF HUMERUS, TWO VIEWS (57436)By: On: 20-Apr-2016 Intent Octavia Nichols DO, DO, Octavia X-RAY OF ELBOW, THREE VIEWS (76791)By: On: 20-Apr-2016 Intent Octavia Nichols DO, DO, Kathleen Flu Vaccine (Quadrivalent) 20452Wo: On: 11-Mar-2016 Intent [address]oli [address] LPN CT - Brain/Head (Without Contrast)By: On: 03-Jan-2016 Intent Aylin Sierra CNP Comments: Call results to iesa today if before 3pm if not call to [facility] manufacturing production technician KF Solu -Medrol Injection, 125 mg On: 01-Nov-2015 Intent (J2930)By: Aylin Sierra CNP Comments: Lot:[id number]/2018Dose:125mgRoute:imSite:r hipGiven By:ADVID signed ATTENDED SLEEP STUDY (44493)By: Rigo On: 25-Oct-2015 Intent Aylin GRANT Comments: schedule with Dr. Letty AbelttesBy: Zeferino FLORES, Rosa Isela Arias On: 30-Sep-2015 Intent Ear Irrigation (14815)By: Zeferino FLORES, On: 30-Sep-2015 Intent Rosa Isela Arias Comments: IrrigationSite- L earAmount/Color/Quality - minimal Unable to get all cerumen out at this point due to the cerumen being too hard and patient was getting dizzy. She will go home and use Debrox and then come back to have sprayed agai Pap Smear, Medicare (Q0091)By: Zeferino On: 30-Sep-2015 Intent Rosa Isela FLORES BILATERAL MAMMOGRAMS (62110)By: On: 30-Sep-2015 Intent Rosa Isela Sweet MD Comments: due November 2015 DEXA SCAN AXIAL SKELETON (10105)By: On: 30-Sep-2015 Intent Rosa Isela Sweet MD Ultrasound - Abdomen CompleteBy: Adelina On: 23-May-2015 Intent Santy FLORES Radiology - Hip - RightBy: Adelina FLORES, On: 23-May-2015 Intent Santy Flu Vaccine (Quadrivalent) 65755Oz: On: 26-Feb-2015 Intent Rosa Isela Sweet MD Comments: Lot:[id number]:11/14/15Dose:0.5mLRoute:IMSite:L DltdGiven By:DAVID signed GASTRIC EMPTYING STUDY (70087)By: On: 07-Dec-2014 Intent Rosa Isela Sweet MD Ultrasound - ThyroidBy: Zeferino FLORES, On: 20-Nov-2014 Intent Rosa Isela Arias Ultrasound - ThyroidBy: Zeferino FLORES, On: 21-Aug-2014 Intent Rosa Isela Arias MAMMOGRAM, SCREENING, BOTH BREAST On: 22-May-2014 Intent (83635)By: Rosa Isela Sweet MD GASTRIC EMPTYING STUDY (26721)By: On: 22-May-2014 Intent Rosa Isela Sweet MD Prevnar 13 (64158)By: Zeferino FLORES, On: 22-May-2014 Intent Rosa Isela Arias EKG (18911)By: Rosa Isela Sweet MD On: 22-May-2014 Intent Comments: see scanned document of test done to see results reviewed today with patient Wax CurettesBy: Rosa Isela Sweet MD On: 30-Apr-2014 Intent Ear Irrigation (17388)By: Zeferino FLORES, On: 30-Apr-2014 Intent Rosa Isela Arias IMMUNIZ ADMNIN, 1 VAC, SNGL/COMBO On: 21-Feb-2014 Intent (92034)By: Rosa Isela Sweet MD Comments: Lot #[id number]-L dltd, IMDose prefilled syringegiven by:Fidel LPNVIS and ABN signed FLU VAC, SPLIT, >3 YEARS, INTRAMUSC On: 21-Feb-2014 Intent (52942)By: Rosa Isela Sweet MD Eprescribed prescriptions (G8553)By: [...] (G8553)By: On: 11-Apr-2013 Intent Jackie Mcgee EKG (76886)By: Rosa Isela Sweet MD On: 23-Mar-2013 Intent Comments: see scanned document of test done to see results reviewed today with patient Eprescribed prescriptions (G8553)By: On: 23-Mar-2013 Intent Gabriella Velez LPN FLU VAC, SPLIT, >3 YEARS, INTRAMUSC On: 21-Feb-2013 Intent (22219)By: Gabriella Velez LPN Comments: lot [id number]/route L magi, IMamt 0.5mlVIS and ABN signed when applicableChelsea, [facility] ANNUAL DEPRESSION SCREENING, 15 On: 21-Feb-2013 Intent MINUTES (G0444)By: Rosa Isela Sweet MD Nuclear Medicine - Gastric Emptying On: 21-Feb-2013 Intent StudyBy: Rosa Isela Sweet MD ADMINISTRATION OF INFLUENZA VIRUS On: 21-Feb-2013 Intent VACCINE (G0008)By: Gabriella Velez LPN Comments: Lot #[id number]-L dltd, IMDose prefilled syringegiven by:MLong, ZANENVIS and ABN signed Eprescribed prescriptions (G8553)By: On: 21-Feb-2013 Intent Gabriella Velez LPN Eprescribed prescriptions ([id number])By: On: 28-Nov-2012 Intent Aylin Sierra CNP SPECIMEN HANDLING/TRANSPORT ([id number])By: On: 28-Nov-2012 Intent Mary Sarmiento LPN Nuclear Medicine - HIDA w/CPKBy: On: 16-Sep-2012 Intent Jackie Mcgee ELECTROCARDIOGRAM, COMPLETE (ECG) On: 09-Sep-2012 Intent ([id number])By: Aylin Sierra CNP Comments[facility] - HIDA w/CPKBy: On: 06-Sep-2012 Intent Rosa Isela Sweet MD Comments: if us negative Ultrasound - GallbladderBy: Zeferino On: 06-Sep-2012 Intent Rosa Isela FLORES Eprescribed prescriptions ([id number])By: On: 06-Sep-2012 Intent Gabriella Velez LPN Eprescribed prescriptions ([id number])By: On: 22-Aug-2012 Intent Aylin Sierra CNP ELECTROCARDIOGRAM, COMPLETE (ECG) On: 18-Jul-2012 Intent ([id number])By: Gabriella Velez LPN Comments: see scanned document of test done to see results reviewed today with patient Nuclear Stress Test/Stress On: 18-Jul-2012 Intent SPECT/TreadmillBy: Rosa Isela Sweet MD Eprescribed prescriptions ([id number])By: On: 18-Jul-2012 Intent Gabriella Velez LPN Eprescribed prescriptions ([id number])By: On: 04-Mar-2012 Intent Mary Sarmiento LPN SPECIMEN HANDLING/TRANSPORT ([id number])By: On: 04-Mar-2012 Intent Mary Sarmiento LPN Holter Monitor 24 hrsBy: Zeferino FLORES, On: 25-Jan-2012 Intent Rosa Isela Arias Echo CompleteBy: Rosa Isela Sweet MD On: 25-Jan-[address] - Brain/HeadBy: Aylin Sierra CNP On: 22-Jan-2012 Intent Comments: will ask to do in ER ADMINISTRATION OF INFLUENZA VIRUS On: 14-Jan-2012 Intent VACCINE ([id number])By: Bernadine Slaughter FLU VAC, SPLIT, >3 YEARS, INTRAMUSC On: 14-Jan-2012 Intent ([id number])By: Bernadine Slaughter DXA, BONE DENSITY, AXIAL SKELETON On: 09-Nov-2011 Intent ([id number])By: Rosa Isela Sweet MD Comments: loss of height, estrogen def. MAMMOGRAM, SCREENING, BOTH BREASTS On: 09-Nov-2011 Intent ([id number])By: Rosa Isela Sweet MD EKG ([id number])By: Rosa Isela Sweet MD On: 09-Nov-2011 Intent [...] Dizziness and giddiness Encounters Office Visit On: 27-Apr-2018 9:27 Encounter Reason: Follow up for chronic medical issues - The patient feels well with minor complaints, has decreased energy level and is sleeping well. Patient has been compliant with instructions. Current medication use End: 27-Apr-2018 11:35 : no side effects and compliant with [...] include flank pain, back pain and fever (oliverst reporte End: 14-Apr-2018 13:56 d 101 degrees [...] patient does not have durable power of real estate associate attorney or living will. The aruna ent [...] for Tdap vaccination (Renamed from Need for ptdhgsvxez-sadhuaw-kfzmwpefe (Tdap) vaccine, adult/adolescent) [facility] [...] patient does not have durable power of real estate associate attorney or living will. The patient has noticed feeling emptiness in life , feeling helpless and having problems with memory than others. Other providers contributing to the patient's care are transportation operations manager and other:.Encounter Diagnosis: Current nonsmoker (Renamed from Current non-smoker), BMI 30.0-30.9,adult, Annual Medicare Phyiscal WITHOUT abnormal findings (Renamed from Encounter for general adult medical examination without abnormal findings), Visit for screening mammogram, Postmenopausal, Encounter for screening for malignant neoplasm of colon (Renamed from Special screening for malignant neoplasms, colon), Colon polyp, Fatty liver, Nutritional counseling [facility] Office Visit On: 2-Aug-2017 13:55 Encounter Reason: Follow up for chronic [...] as worsening. Presenting symptoms included warts.Encounter Diagnosis: Jose, End: 11-Mar-2016 15:03 Need for prophylactic vaccination and inoculation against influenza (Renamed from Need for immunization against influenza), Pain of hand and fingers [facility] Office Visit On: 05-Feb-2016 10:58 Encounter Reason: Transition into care - The patient is transitioning into care from a hospital . Note for Transition into care: Transition from care from office visit to ER to [facility] psych unit secondary to halluci End: 05-Feb-2016 11:42 nations She was admitted to the geropsychiatric unit then trasferred to [address] seen by psychiatristJonathon jenningss continued but low dose Zyprexa 2.5mg at bedtime for symptoms of psychosis and mood stabi lization . Seen by Dr Nga Gustafson MD of [facility] to follow up with Dr. Cline ??on [id number] diagnosis Bipolar mixed with psychotic features Metformin [...] door of a gas station and called [employer] but did not want to go to Er by [employer] because went home with . Hurt left [...] up ER: fell End: 25-Oct-2015 13:57 at [facility] October 16 after slipping on [facility]. Feeling depressed and falling asleepReports that tells [...] up ER: fell End: 22-Oct-2015 11:11 [facility], Excessive daytime sleepiness, Abnormal TSH [...] patient does not have durable power of real estate associate attorney or living will. The patient has noticed dissatisfaction with life, dropping activities and interests, feeling emptiness in life, poor spirits most of time, feeling something bad will happen and having problems with memory than others. Other providers contributing to the patient's care are gas trologist (Dr. Montero ) and other: (endo: Dr. Mitchell). Note for Annual Medicare Exam: pt has correctional casework specialist to help with some of the ADL's.Encounter [...] started new med last ??wednesday, started by slope runner, ??rash under breast bilateral and chest improving [...] started new med last wednesday, started by slope runner, rash under breast bilateral and chest. Encounter [...] Nutrition: balanced diet and supplemental vitamins. The co dical issues the patient is following up [...] ago ), screening, Pap smear (Dr. 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
--- OUTSIDE RECORDS SUMMARY | 2018-08-03 18:53 | XMS RPT_ITS | Continuity of Care Document ---
:1945 Author Organization [facility] Address [address] [facility] [address] [place] [address] Phone Care Team Providers Name Role Phone Octavia Nichols DO Unavailable Alonso FLORES, Dr. Myla Arias Unavailable Dr. Fredy Cox Unavailable Jeana Juarez MD Unavailable [facility], [facility] Unavailable Ruma FLORES, Jaron Meléndez Unavailable Radha Benítez Unavailable Ashlee FLORES, Haseeb Mcelroy Unavailable Vijay Reece Unavailable [facility]available [facility] Unavailable Kylah FLORES, Cruz Cook Unavailable GAUDENCIO Bowie Unavailable Unavailable Rigo GRANT, Aylin Lucas Unavailable Mae Quinones Unavailable Unavailable Jean Vallejo Unavailable Unavailable Reshma Zuniga Unavailable Unavailable Unavailable Unavailable Problems Name Dates Details Abnormal mammogram (R92.8, 793.80) Status: Active Abnormal TSH (R79.89, 790.6) Status: Active Abnormal urine (R82.90, 791.9) Status: Active Accidental fall, initial encounter (W19.XXXA, E888.9) Status: Active Acute recurrent sinusitis, unspecified location (J01.91, 461.9) Status: Active 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 see Dr. 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 parkinsons vs drug interaction will be discussing with Psych nurse and neurologist recent fall at [facility] Status: Active Fatty liver (K76.0, 571.8) [...] for Tdap vaccination (Renamed from Need for ljiijergxk-osracoy-gyhcctcjb (Tdap) vaccine, adult/adolescent) (Z23, V06.1) Status: Active [...] being told to dig with thoughts of sikh overtones Status: Active Pain of hand and [...] diabetes mellitus, well controlled (E11.9, 250.00) Comments: [facility] 09/29/17 5.9 well controlled Status: Active [...] takes as neededpsych prescribes CITRACAL SLOW RELEASE, 114-37-582VP-MG-UNIT (Oral Tablet Extended Release 24 Hour) 2 [...] Start : 23-May-2015 End : 04-Jun-2015 Inactive Comments:[facility] sent it in for her per last [...] days Quantity: 14 {Tablet} Refills: 0 Ordered:28-Nov-2012 Jarod Sarmiento LPNsie Start : 14-Nov-2012 End : 28-Nov-2012 Inactive CITALOPRAM HYDROBROMIDE, 20MG (Oral Tablet) 1 qd (20 MG) End : 30-Sep-2012 Inactive Comments:d/c per [facility] center Delsym Cough/Cold Daytime 2-26-625-325 MG/10ML Oral Liquid 5 Milliliter Milliliter q6 [...] 03-Feb-2013 End : 20-Nov-2013 Inactive Comments:Lazara Pradhan [facility] [employer] at [facility] LORATADINE, 10MG (Oral Tablet) 1 qd (10 [...] Quantity: 30 {Capsule} Refills: 0 Ordered:11-Mar-2016 Rigo GRANT Antonella Start : 05-Feb-2016 End : 06-Mar-2016 [...] 14-Jun-2014 Inactive NASONEX, 50MCG/ACT (Nasal Suspension) 1 [place](s) each nostril daily for 0 days Quantity: 1 {Suspension} Refills: 0 Ordered:17-Oct-2012 HOME Byrne Start : 26-Nov-2011 End : 17-Oct-2012 Inactive Pbadxwcq-Chaphbhpt-II 1 % Otic Solution 1 (one) Metric [...] 6 {Tablet} Refills: 0 Ordered:04-Mar-2012 Rigo GRANT Aylin Lucas Start : 04-Mar-2012 End : 06-Mar-2012 Inactive [...] daily for 30 days Refills: 0 Ordered:03-Dec-2015 Angelinaoneydayaneli GRANTAylin Start : 18-Oct-2015 End : 17-Nov-2015 [...] End : 21-Feb-2014 Discontinued Comments:re started per [facility] 09-30-12 AUGMENTIN, 875-125MG (Oral Tablet) 1 [...] seen a surgeon Dr. Sinan Stark in [place] Status: Inactive as of 28-Dec-2016 Allergic rhinitis [...] Summary (1) Result: Comments: See Note; NOTES: [facility] 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 Goal Progress: Goal Met Goal 5:: Pt will be independent with HEP to sustain gains made in the clinic. Goal Progress: Goal Met - Plan Plan: D/C - D/C Information Dischar Comments: MAY TRY MASSAGE ON OWN If there are questions or concerns regarding this patient's physical therapy, please feel free to call me at [phone]. Thank you for the referral of this patient. Sincerely, Samy Johnson PT, <Electronically signed by Samy Johnson PT, Cert. T, [facility]> 03/16/18 0954 CC: Octavia Nichols DO CABRERAYaneli Signed 03-Mar-2018 Operative Report - Endoscopy Result: Comments: See Note; NOTES: [facility] Medical Records Department [address] [place] [address] Operative Report - Endoscopy MR#: [id number] Acct: [id number] Name: Demar MCKAY Rep #: [id number] : 1945 73 From: Cruz Montero MD PCP: Octavia Nichols DO Status: REG [facility] Patient Name: Joseluis Mckay [...] for surveillance. Procedure Code(s): --- Professional --- 46482, Colonoscopy, flexible; diagnostic, including collection of specimen(s) by brushing or washing, when performed (separate procedure) 24525, 59, Moderate sedation services provided by the same physician or other qualified health before and after school daycare worker performing the diagnostic or therapeutic service that [...] congenital malformations of intestine CPT copyright 2017 [employer]. All rights reserved. The codes documented in this report are preliminary and upon photo technician review may be revised to meet current compliance requirements. Romeo Montero MD 03/03/2018 11:33:51 AM This report has been signed electronically. Number of Addenda: 0 Note Initiated On: 03/03/2018 11:00 AM 03/03/18 1134 Date [facility] Signature: Date (if indicated) CC: Octavia Nichols DO; Cruz Montero MD Date Dictated: 03/03/18 1100 Date Transcribed: Agricultural Equipment Design Engineer: RDC Signed 03-Mar-2018 History and Physical Exam Result: Comments: See Note; NOTES: [facility] Medical Records Department [address] [place] [address] History and Physical 03/03/18 1055 MR#: [id number] Acct: [id number] Name: JOSELUIS CRAFT Rep #: [id number] : 1945 73 From: Cruz Montero MD PCP: Octavia Nichols DO Status: REG [facility] [place] Y Location: [place] [address]- Problem List (1) Personal history of colonic [...] PT (1) Result: Comments: See Note; NOTES: [facility] [address] [place] [address] Fax [facility]ATION [facility] MR#: [id number] Acct: [id number] Name: JOSELUIS MCKAY Rep #: [id number] : 1945 73 From: Samy Johnson PT, Cert. 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 [...] do not hesitate to contact me at [phone] by phone or if you have questions or concerns regarding this new plan of care! Sincerely, Samy Johnson PT, <Electronically signed by Samy Johnson PT, Cert. T, OCS> 02/23/18 1449 CC: Gricel Nichols DO VEDA Signed For Medicare only, by signing this I certify the plan of care. Physicians Signature Date 24-Jan-2018 Re-Evaluation - PT (1) Result: Comments: See Note; NOTES: [facility] [address] [place] [address] Fax REEVALUATION / MEDICARE [facility] PHYSICAL THERAPY MR#: [id number] Acct: [id number] Name: JOSELUIS MCKAY Rep #: [id number] : 1945 73 From: Samy Johnson PT, Cert. 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 [...] do not hesitate to contact me at [phone] by phone or if you have questions or concerns regarding thi s new plan of care! Sincerely, Samy Johnson PT, <Electronically signed by Samy Johnson PT, Cert. MDT, OCS> 01/24/18 4868 CC: Octavia Nichols DO JLA Signed For Medicare only, by signing this I certify the plan of care. Physicians Signature Date 13-Jan-2018 Emergency Department Summary Result: Comments: See Note; NOTES: [facility] Medical Records Department [address] [place] [address] Emergency Department Summary 01/13/18 2142 MR#: [id number] Acct: [id number] Name: JOSELUIS MCKAY Rep #: [id number] : 1945 73 From: Susie Maki DO PCP: Octavia Nichols DO Status: REG ER - ER Visit Summary Date of Service: 01/13/18 Chief Complaint: [Addendum to andrewa ashley dictation] History of Present Illness: The patient [...] triquetral fracture] This note was generated with Aqu[employer]ore[employer] software. It may contain incorrect words, spelling, [...] your Primary Care Provider. Call [facility] ([phone]) or repo rt to the closest Emergency Room. Call 911 if necessary. 01/13/182143 <Electronically signed by Susie Maki DO> Date Susie Maki DO Cosigner Signature (If Indicated): Date CC: Octavia Nichols DO 13-Jan-2018 Discharge Instruction Result: Comments: See Note; NOTES: [facility] Medical Records Department [address] [place] [address] Discharge Instruction 01/13/182131 MR#: [id number] Acct: [id number] Name: ISAURABRIANNA JOSELUIS HENSLEY Rep #: [id number] : 1945 73 From: Susie Maki DO [...] your Primary Care Provider. Call [facility] ([phone]) or report to the closest Emergency Room. Call 911 if nec essary. 01/13/182132 <Electronically signed by Susie Maki DO> Date Susie Maki DO Cosigner Signature (If Indicated): Date ____ CC: Octavia Nichols DO 13-Jan-2018 Emergency Department Summary Result: Comments: See Note; NOTES: [facility] Medical Records Department [address] [place] [address] Emergency Department Summary 01/13/18 2129 MR#: [id number] Acct: [id number] Name: JOSELUIS MCKAY Rep #: [id number] : 1945 73 From: Susie Maki DO [...] wrist sprain] This note was generated with [employer] dictation software. It may contain incorrect words, [...] your Primary Care Provider. Call [facility] ([phone]) or report to the closest Emergen cy Room. Call 911 if necessary. 01/13/182 <Electronically signed by Susie Maik DO> Date Susie Maki DO Cosigner Signature (If Indicated): Date CC: Octavia Nichols DO 13-Jan-2018 Wrist min 3 Views Result: Comments: See Note; NOTES: [facility] Imaging Services [address] [place] [address] Wrist min 3 Views MR#: [id number] Acct: [id number] Name: JOSELUIS MCKAY #: [id number] : 1945 F 73 From: Jonny Sandy MD PCP: Octavia Nichols DO Status: PRE ER Study: Wrist min 3 Views Date of Exam: 01/13/18 Exam# [id number] Ordering Dr: Provider, Ed P. STUDY: X-RAY [...] CC: ED PHYSICIAN PROVIDER; Octavia Nichols DO Agricultural Equipment Design Engineer: Signed 12-Jan-2018 Wrist min 3 Views Result: Comments: See Note; NOTES: [facility] Imaging Services [address] [place] [address] Wrist min 3 Views MR#: [id number] Acct: [id number] Name: JOSELUIS MCKAY Jakub Rep #: [id number] : 1945 F 73 From: Suleman Chan MD PCP: Octavia Nichols DO Status: REG CLI Study: Wrist min 3 Views Date of Exam: 01/12/18 Exam# [id number] Ordering Dr: Aylin Sierra STUDY: X-RAY - [...] Suleman Chan MD at 11:10 EDT Tel [phone], Service support , CC: Aylin Sierra [employer]; Octavia Nichols DO Agricultural Equipment Design Engineer: Signed 24-Dec-2017 Re-Evaluation - PT (1) Result: Comments: See Note; NOTES: [facility] 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 [...] do not hesitate to contact me at [phone] by phone or if you have questions or concerns regarding this new plan of care! Sincerely, Samy Johnson, PT, <[facility] signed by Samy Johnson PT, Cert. MDT, [facility]> 12/24/17 1629 CC: Octavia Nichols DO VEDA Signed For Medicare only, by signing this I certify the plan of care. Physicians Signature Date 10-Dec-2017 DIAG MAMM W/CAD, BILAT Result: Comments: See Note; NOTES: [facility] Imaging Services [address] [place] [address] DIAG MAMM W/CAD, BILAT MR#: [id number] Acct: [id number] Name: JOSELUIS MCKAY Rep #: [id number] : 1945 F 72 From: Jonny Lovelace MD PCP: Octavia Nichols DO Status: REG CLI Study: DIAG MAMM W/CAD, BILAT Date of Exam: 12/10/17 Exam# [id number] Ordering Dr: Karen Gandhi MAMMO GRAPHY - [...] delay biopsy of a clinically suspicious abnormality. [id number] Electronically Signed: Kamar Lovelace MD at 14:52 EDT , Serv ice support , CC: GEETA Gandhi; Octavia Nichols DO Agricultural Equipment Design Engineer: Signed 25-Nov-2017 Inital Evaluation (1) - PT Result: Comments: See Note; NOTES: [facility] 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 [...] to be FAXED BACK to us at [phone] for Medicare purposes. Please let me know if there are questions or concerns regarding this plan of care. Physician Signature: Date:__ <Electronically signed by Samy Johnson PT, Cert. T, OCS> 11/25/17 2234 CC: Octavia Nichols DO VEDA Signed For Medicare only, by signing th is I certify the plan of care. Physicians Signature Date 21-Nov-2017 Emergency Department Summary Result: Comments: See Note; NOTES: [facility] Medical Records Department [address] [place] [address] Emergency Department Summary 11/21/17 1125 MR#: [id number] Acct: [id number] Name: JOSELUIS MCKAY Rep #: [id number] : 1945 72 From: Bernadine Vargas MD [...] neck strain This note was generated with [employer] dictation software. It may contain incorrect words, [...] problems, contact your Primary Care Provider. Call [employer] [facility] ([phone]) or report to the closest Emergency Room. Call 911 if necessa ry. 11/21/17 5161 <Electronically signed by Bernadine Vargas MD> Date Bernadine Vargas MD Cosigner Signature (If Indicated): Date CC: Octaviaeros Nichols DO 21-Nov-2017 Discharge Instruction Result: Comments: See Note; NOTES: [facility] Medical Records Department [address] [place] [address] Discharge Instruction 11/21/17 1222 MR#: [id number] Acct: [id number] Name: JOSELUIS HURLEY Rep #: [id number] : 1945 72 From: Bernadine Vargas MD [...] your Primary Care Provider. Call [facility] ([phone]) or report to the closest Emergency Room. Call 911 if necessary. 1223 <Electronically signed by Bernadine Vargas MD> Date Bernadine Vargas MD Cosigner Signature (If Indicated): Date _ CC: Octavia Nichols DO 21-Nov-2017 Brain/Head without Contrast Result: Comments: See Note; NOTES: [facility] Imaging Services [address] [place] [address] Brain/Head without Contrast MR#: [id number] Acct: [id number] Name: JOSELUIS MCKAY p #: [id number] : 1945 F 72 From: Trish Moser MD PCP: Octavia Nichols DO Status: REG ER Study: Brain/Head without Contrast Date of Exam: 11/21/17 Exam# [id number] Ordering Dr: Bernadine Vargas MD STUDY: CT [...] CC: Bernadine Vargas MD; Octavia Nichols DO Agricultural Equipment Design Engineer: Signed 21-Nov-2017 Spine Cervical without Contras Result: Comments: See Note; NOTES: [facility] Imaging Services [address] [place] [address] Spine Cervical without Contras MR#: [id number] Acct: [id number] Name: JOSELUIS MCKAY Rep #: [id number] : 1945 F 72 From: Trish Moser MD PCP: Octavia Nichols DO Status: REG ER Study: Spine Cervical without Contras Date of Exam: 11/21/17 Exam# [id number] Ordering Dr: Uzair Vargas MD STUDY: CT [...] at 11:57 EDT Tel , Service support [phone], CC: Bernadine Vargas MD; Octavia Nichols DO Agricultural Equipment Design Engineer: Signed 27-Aug-2017 Chest PA and Lateral Result: Comments: See Note; NOTES: [facility] Imaging Services [address] [place] [address] Chest PA and Lateral MR#: [id number] Acct: [id number] Name: JOSELUIS MCKAY Rep #: [id number] : 1945 F 72 From: Katie Hopkins MD PCP: Octavia Nichols DO Status: REG CLI Study: Chest PA and Lateral Date of Exam: 08/27/17 Exam# [id number] Ordering Dr: Octavia Nichols DO XR Chest [...] ervice support , CC: Octavia Nichols DO Agricultural Equipment Design Engineer: Signed 02-Aug-2017 12 Lead Electrocardiogram Result: Comments: See Note; NOTES: [facility] Cardiovascular Services [address] [place] [address] 12 Lead EKG 07/28/17 1143 MR#: [id number] Acct: [id number] Name: JOSELUIS MCKAY Rep #: [id number] : 1945 72 From: Haseeb Tinoco MD [...] normal ECG Confirmed by HASEEB TINOCO ([id number]), photograph editor KATIE MELO ([id number]) on 08/02/2017 2:06:31 PM Referred By: Octavia Nichols Confirmed By:HASEEB TINOCO 08/02/17 1406 Date Haseeb Tinoco MD CC: Octavia Nichols DO; Kristian Sauceda MD Signed 28-Jul-2017 Emergency Department Summary Result: Comments: See Note; NOTES: [facility] Medical Records Department [address] [place] [address] Emergency Department Summary 07/28/17 1214 MR#: [id number] Acct: [id number] Name: JOSELUIS MCKAY Rep #: [id number] : 1945 72 From: Kristian Sauceda MD [...] sensation to light touch throughout. N ormal axpkux-gvvp-xbojxh and uczt-jlja-xkzq bilaterally. Normal gait. General: A AND O [...] should she be sent over to the [place] [facility] [facility]. She will be discharged to there. Disposition: To home in improved and stable condition. Impression: 1. Transient visual changes. This note was generated with [employer] dictation software. It may contain i ncorrect [...] your Primary Care Provider. Call [facility] ([phone]) or report to the closest Emergency Room. Call 911 if necessary. 07/28/17 1711 & #60;Electronically signed by Kristain Sauceda MD> Date Kristian Sauceda MD Cosigner Signature (If Indicated): Date CC: Octavia Nichols 28-Jul-2017 Brain/Head without Contrast Result: Comments: See Note; NOTES: [facility] Imaging Services [address] [place] [address] Brain/Head without Contrast MR#: [id number] Acct: [id number] Name: JOSELUIS MCKAY Re p #: [id number] : 1945 F 72 From: Suleman Chan MD PCP: Octavia Nichols DO Status: REG ER Study: Brain/Head without Contrast Date of Exam: 07/28/17 Exam# [id number] Ordering Dr: Sa milan Sauceda MD STUDY: [...] Suleman Chan MD at 11:36 EDT Tel [phone], Service support , CC: Octavia Nichols DO; Kristian Sauceda MD Agricultural Equipment Design Engineer: Signed 22-Jul-2017 Echocardiogram Complete Result: Comments: See Note; NOTES: [facility] Cardiovascular Services [address] [place] [address] Echo Complete 07/22/17 0855 MR#: [id number] Acct: [id number] Name: MARY MCKAY RA Rep #: [id number] : 1945 72 From: Haseeb Tinoco MD Attending Dr: Octavia Nichols DO Status: REG CLI Ordering Dr: Octavia Nichols DO Date: 07/22/17 Location: [facility] Sex: F C Admitted: [place] son For Study: Murmur Procedure This was [...] Dictated: 07/22/17 0855 Date Transcribed: 07/22/17 1510 Agricultural Equipment Design Engineer: Signed 14-Jul-2017 Carotid Duplex Ultrasound Result: Comments: See Note; NOTES: [facility] Cardiovascular Services [address] [place] [address] Carotid Duplex Ultrasound 07/13/17918 MR#: [id number] Acct: [id number] Name: JOSELUIS YADAV Rep #: [id number] : 1945 72 From: Finesse Barrios MD [...] the left vertebral artery. Procedure Carotid Duplex 53095. The exam was diagnostic. Exam performed in department. Interpretation Summary Moderate (50-69%) stenosis right extracranial internal carotid. No significant atherosclerotic plaque or stenosis noted in the left internal carotid artery. Flow within the vertebral arteries is antegrade bilaterally. Ordering Physician: Octavia Nichols Performed By: Chilango Caballero RVRicardo 07/14/172027 Date Finesse Barrios MD CC: Octavia Nichols DO Date Dictated: 07/13/17918 Date Transcribed: 07/14/172027 Agricultural Equipment Design Engineer: Signed 12-Jan-2017 Operative Report Result: Comments: See Note; NOTES: [facility] Medical Records Department [address] [place] [address] Operative Report 01/12/17 1150 MR#: [id number] Acct: [id number] Name: Demar MCKAY Jakub Rep #: [id number] : 1945 72 From: Cruz Montero MD PCP: Octavia Nichols DO Status: REG CLI Y Location: [place] [address] Report of Operation Date of Procedure: 01/12/17 [...] Department Summary Result: Comments: See Note; NOTES: [facility] Medical Records Department [address] [place] [address] Emergency Department Summary 01/05/17 1846 MR#: [id number] Acct: [id number] Name: JOSELUIS MCKAY Rep #: [id number] : 1945 71 From: Haseeb Hyatt DO [...] Primary Ca re Provider. Call [facility] ([phone]) or report to the closest Emergency Room. Call 911 if necessary. 01/05/17 5501 <Electronically signed by Haseeb Hyatt DO> Date ____ Haseeb Hyatt DO Cosigner Signature (If Indicated): Date CC: Octavia Nichols DO 05-Jan-2017 SCREENING MAMM (CAD), BILAT Result: Comments: See Note; NOTES: [facility] Imaging Services [address] [place] [address] SCREENING MAMM (CAD), BILAT MR#: [id number] Acct: [id number] Name: JOSELUIS MCKAY p #: [id number] : 1945 F 71 From: Jose Armas MD PCP: Octavia Nichols DO Status: REG CLI Study: SCREENING MAMM (CAD), BILAT Date of Exam: 01/05/17 Exam# [id number] Ordering Dr: Evan Nichols DO MAMMOGRAPHY - [...] delay biopsy of a clinically suspicious abnormality. [id number] Electronically Signed: Jose Armas MD at 14:49 EDT Tel , Service support , CC: Octavia Nichols DO Agricultural Equipment Design Engineer: Signed 02-Dec-2016 Ankle min 3 Views Result: Comments: See Note; NOTES: [facility] Imaging Services [address] [place] [address] Verdana 4d Ankle min 3 Views MR#: [id number] Acct: [id number] Name: JOSELUIS MCKAY ep #: [id number] : 1945 F 71 From: Jose Reno MD PCP: Octavia Nichols DO Status: REG CLI Study: Ankle min 3 Views Date of Exam: 12/02/16 Exam# [id number] Ordering Dr: Aylin Sierra STUDY: X-R AY [...] , CC: Aylin Sierra; Octavia Nichols DO Agricultural Equipment Design Engineer: Signed 08-Jun-2016 Hand Min 3 Views Result: Comments: See Note; NOTES: [facility] Imaging Services [address] [place] [address] Verdana 4d Hand Min 3 Views MR#: [id number] Acct: [id number] Name: JOSELUIS MCKAY Jazmyne p #: [id number] : 1945 F 71 From: Suleman Chan MD PCP: Octavia Nichols DO Status: REG CLI Study: Hand Min 3 Views Date of Exam: 06/08/16 Exam# [id number] Ordering Dr: Octavia Nichols DO STUDY: X-RAY [...] Suleman Chan MD at 14:44 EST Tel [phone], Service support [phone], CC: Octavia Nichols DO Agricultural Equipment Design Engineer: Signed 20-Apr-2016 Elbow min 3 Views Result: Comments: See Note; NOTES: [facility] Imaging Services [address] [place] [address] Verdana 4d Elbow min 3 Views MR#: [id number] Acct: [id number] Name: JOSELUIS MCKAY Romeo ep #: [id number] : 1945 F 71 From: Gabo Brito MD PCP: Octavia Nichols DO Status: REG CLI Study: Elbow min 3 Views Date of Exam: 04/20/16 Exam# [id number] Ordering Dr: Octavia Nichols DO STUDY: X-RAY [...] MD at 23:25 EST , Service support [phone], CC: Octavia Nichols DO Agricultural Equipment Design Engineer: Signed 20-Apr-2016 Humerus min 2 Views Result: Comments: See Note; NOTES: [facility] Imaging Services [address] [place] [address] Verdana 4d Humerus min 2 Views MR#: [id number] Acct: [id number] Name: JOESLUIS MCKAY Rep #: [id number] : 1945 F 71 From: Gabo Brito MD PCP: Octavia Nichols DO Status: REG CLI Study: Humerus min 2 Views Date of Exam: 04/20/16 Exam# [id number] Ordering Dr: Octavia Nichols DO STUDY: X-RAY [...] MD at 23:28 EST , Service support [phone], Fax CC: Octavia Nichols DO Agricultural Equipment Design Engineer: Signed 27-Jan-2016 12 Lead Electrocardiogram Result: Comments: See Note; NOTES: [facility] Cardiovascular Services [address] [address] 12 Lead EKG 01/24/16 160 MR#: [id number] Acct: [id number] Name: JAKE MCKAY Rep #: [id number] : 1945 71 From: Sebastian Valenzuela MD [...] ECG Confirmed by TARAH FLORES, SEBASTIAN ([id number]), photograph editor KATIE MELO ([id number]) on 01/27/2016 1:21:19 PM Referred By: Confirmed By:SEBASTIAN VALENZUELA MD 01/27/16 1321 Date ____ Sebastian Valenzuela MD CC: Aylin Sierra Date Dictated: 01/24/16 1601 Date Transcribed: 01/24/16 160 Agricultural Equipment Design Engineer: Signed 27-Jan-2016 Emergency Department Summary Result: Comments: See Note; NOTES: [facility] Medical Records Department [address] [place] [address] Emergency Department Summary MR#: [id number] Acct: [id number] Name: JOSELUIS MCKAY Rep #: [id number] : 1945 71 From: Kristian Sauceda MD [...] arranged for her to be transferred to [facility]. DISPOSITION: Transferre d in stable condition. IMPRESSION: Acute naif. MD Terrell Hall C: Alyin Sierra T: NTS JOB: [id number] 01/27/16 0044 <Electronically signed by Kristian Sauceda MD> Date Kristian Sauceda MD Cosigner Signature (If Indicated): Date CC: Aylin Sierra Date Dictated: 01/24/161613 Date Transcribed: 01/24/161613 Agricultural Equipment Design Engineer: Signed 03-Jan-2016 Brain/Head without Contrast Result: Comments: See Note; NOTES: [facility] Imaging Services [address] [place] [address] Verdana 4d Brain/Head without Contrast MR#: [id number] Acct: [id number] Name: JOSELUIS MCKAY Rep #: [id number] : 1945 F 70 From: Suleman Chan MD PCP: Aylin Sierra Status: REG CLI Study: Brain/Head without Contrast Date of Exam: 01/03/16 Exam# [id number] Ordering Dr: Aylin Sierra STUDY: CT BRAIN [...] Suleman Chan MD at 11:16 EDT Tel [phone], Service support [phone], Fax CC: Aylin Sierra Agricultural Equipment Design Engineer: Signed 19-Oct-2015 Emergency Department Summary Result: Comments: See Note; NOTES: [facility] Medical Records Department [address] [place] [address] Emergency Department Summary MR#: [id number] Acct: [id number] Name: JOSELUIS MCKAY Rep #: [id number] : 1945 70 From: Rogelio Marcial MD [...] was apparently at Dr. 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 She accordingly got turned out for [...] the patient may be overmedicated as well. Afton scale was negative and they did say [...] at 3 a.m. Acc ording to the customer supply chain analyst, her blood pressure were reportedly low, but [...] time. No facial droop. N o abnormal fbstju-nn-kyuy. She has normal atsh-za-ryul, no drift. Negative Babinski. She does appear [...] bipolar. DISPOSITION: Home. MD Terrell Coley C: oRsa Isela Sierra T: NTS JOB: [id number] 10/19/15 2306 &am p;#60;Electronically signed by Rogelio Marcial MD> Date Rogelio Marcial MD Cosigner Signature (If Indicated): Date CC: Aylin Sierra; Rosa Isela Mcgarry MD Date Dictated: 10/17/151707 Date Transcribed: 10/17/151707 Agricultural Equipment Design Engineer: Signed 19-Oct-2015 Emergency Department Summary Result: Comments: See Note; NOTES: [facility] Medical Records Department [address] [place] [address] Emergency Department Summary MR#: [id number] Acct: [id number] Name: JOSELUIS MCKAY Rep #: [id number] : 1945 70 From: Man Salamanca MD PCP: Aylin Sierra Status: DEP ER DATE OF SERVICE: 10/19/2015 CHIEF COMPLAINT: Fall. HISTORY OF PRESENT ILLNESS : A 70-year-old female who slipped on some salt on the floor at [facility], injuring her head. She is right [...] of consciousness. DISPOSITION: Home. CONDITION: Stable. Man Tjeada C: Aylin Sierra T: VIKY JOB: [id number] 10/19/15 1838 <Electronically signed by Man Salamacna MD> Date Man Salamanca MD Cosigner Signature (If Indicated): Date CC: Aylin Sierra Date Dictated: 10/19/15 144 Date Transcribed: 10/19/15 144 Agricultural Equipment Design Engineer: Signed 19-Oct-2015 Discharge Instruction Result: Comments: See Note; NOTES: [facility] Medical Records Department [address] [place] [address] Discharge Instruction 10/19/151442 MR#: [id number] Acct: [id number] Name: JOSELUIS MCKAY Rep #: [id number] : 1945 70 From: Man Salamanca MD [...] problems, contact your doctor. Call [facility] ([phone]) or report to the closest Emergency Room. Call 911 if necessary. 10/19/15 1443 <Electronically signed by Man Salamanca MD> Date Man Salamanca MD Cosigner Signature (If Indicated): Date CC: Aylin Sierra 19-Oct-2015 Brain/Head without Contrast Result: Comments: See Note; NOTES: [facility] Imaging Services [address] [place] [address] Verdana 4d Brain/Head without Contrast MR#: [id number] Acct: [id number] Name: JOSELUIS MCKAY Rep #: [id number] : 1945 F 70 From: Noé Carr MD PCP: Aylin Sierra Status: REG ER Study: Brain/Head without Contrast Date of Exam: 10/19/15 Exam# [id number] Ordering Dr: Man Salamanca MD STUDY: CT [...] Carr MD at 13:03 EDT Tel [phone], Service support [phone], CC: Aylin Sierra; MAN SALAMANCA MD Agricultural Equipment Design Engineer: Signed 17-Oct-2015 Discharge Instruction Result: Comments: See Note; NOTES: [facility] Medical Records Department [address] [place] [address] Discharge Instruction 10/17/15 1652 MR#: [id number] Acct: [id number] Name: JOSELUIS MCKAY Rep #: [id number] : 1945 70 From: Rogelio Marcial MD [...] any unexpected problems, contact your doctor. Call [employer] [facility] ([phone]) or report to the closest Emergency Room. Call 911 if necessary. 10/17/15 8426 <Electronically signed by Rogelio Marcial MD> Date Rogelio Marcial MD Cosigner Signature (If Indicated): Date CC: Aylin Sierra 17-Oct-2015 Brain/Head without Contrast Result: Comments: See Note; NOTES: [facility] Imaging Services [address] [place] [address] Verdana 4d Brain/Head without Contrast MR#: [id number] Acct: [id number] Name: JOSELUIS MCKAY Rep #: [id number] : 1945 F 70 From: Man Garcia MD PCP: Aylin Sierra Status: REG ER Study: Brain/Head without Contrast Date of Exam: 10/17/15 Exam# [id number] Rocío harris Dr: Rogelio Marcial MD STUDY: [...] MD at 16:33 EDT , Service support [phone], CC: Aylin Sierra; Rogelio Marcial MD Agricultural Equipment Design Engineer: Signed 17-Oct-2015 Chest PA and Lateral Result: Comments: See Note; NOTES: [facility] Imaging Services [address] [place] [address] Verdana 4d Chest PA and Lateral MR#: [id number] Acct: [id number] Name: GARY RAHMANJOSELUIS Jakub Rep #: [id number] : 1945 F 70 From: Man Garcia MD PCP: Aylin Sierra Status: REG ER Study: Chest PA and Lateral Date of Exam: 10/17/15 Exam# [id number] Ordering Dr: Allison Marcial MD STUDY: X-RAY [...] abdomen. IMPRESSION: Degenerative changes, as described jennifer marmolejo No demonstrated acute cardiopulmonary process. Electronically Signed: Man Garcia MD at 16:28 EDT , Service support [phone], ORDER #: [id number] RAD/Chest PA and Lateral IMPRESSION: Degenerative changes, as described above. No demonstrated acute cardiopulmonary process. Electronically Signed: Man Garcia MD at 16:28 EDT , Service support [phone], CC: Aylin Sierra; Rogelio Marcial MD Agricultural Equipment Design Engineer: Signed 07-May-2015 EKG (81024) Result: [MEASUREMENTS ANALYSIS] Date of Test: 05/07/2015 14:57:34; Heart Rate: 74; KY Interval: 180; QRS: 97; QT Interval: 372; Corrected QT Interval (QTc): 396; P Wave Crowder: 66; QRS Wave Crowder: -4; T Wave Crowder: 40; Blood Pressure: 118/76 [ECG DIAGNOSTIC STATEMENTS] Date of Test: 05/07/2015 14:57:34; Summary: Sinus Rhythm -Left atrial enlargement. - Negative precordial T-waves. BORDERLINE [MEASUREMENTS ANAL YSIS] Date of Test: 05/07/2015 14:57:26; Heart Rate: 73; KY Interval: 184; QRS: 100; QT Interval: 370; Corrected QT Interval (QTc): 392; P Wave Crowder: 57; QRS Wave Crowder: 6; T Wave Crowder: 48; Blood Pressur e: 118/76 [ECG DIAGNOSTIC STATEMENTS] Date of Test: 05/07/2015 14:57:26; Summary: Sinus Rhythm -Left atrial enlargement. - Negative precordial T-waves. BORDERLINE 28-Feb-2015 PT Discharge Summary Result: Comments: See Note; NOTES: [facility] [address] [place] [address]. [address] [place], [place] [address] Fax REHABILITATION SE RVICES DISCHARGE SUMMARY MR#: [id number] Acct: [id number] Name: JOSELUIS MCKAY Rep #: [id number] : 1945 70 From: Samy Johnson Referring [...] referral. Samy Johnson, PT T: NTS JOB: [id number] <Electronically signed by Samy Johnson > 1026 CC: Rosa Isela Mcgarry MD Signed 26-Feb-2015 EKG (22792) Comments: see scanned document of test done to see results reviewed today with patient v Result: [MEASUREMENTS ANALYSIS] Date of Test: 02/26/2015 12:21:51; Heart Rate: 57; KY Interval: 172; QRS: 102; QT Interval: 406; Corrected QT Interval (QTc): 401; P Wave Crowder: 34; QRS Wave Crowder: -4; T Wave Crowder : 26; Blood Pressure: 100/70 [ECG DIAGNOSTIC STATEMENTS] Date of Test: 02/26/2015 12:21:51; Summary: Sinus Bradycardia WITHIN NORMAL LIMITS 31-Jan-2015 Inital Evaluation - PT Result: Comments: See Note; NOTES: [facility] [address] [place] [address] Fax REHABILITATION SERVICES INITIAL EVALUATION MR#: [id number] Acct: [id number] Name: JOSELUIS MCKAY Rep #: [id number] : 1945 70 From: Samy Johnson Referring [...] y/o female presents to physical th [facility] from low back pain and lateral hip [...] Parathyroid Scan Result: Comments: See Note; NOTES: [facility] Imaging Services [address] [place] [address] Nuclear Medicine Report MR#: [id number] Acct: [id number] Name: JOSELUIS MCKAY Rep #: [id number] : 1945 F 70 From: Sd Elmore DO PCP: Rosa Isela Mcgarry MD Status: REG CLI Study: Parathyroid Scan Date of Exam: 01/18/15 Exam# [id number] Ordering Dr: Maxx Mitchell CL INICAL: 70-year-old [...] Sd alford DO at 11:27 EDT Tel [phone], Service support [phone], CC: Rosa Isela Mcgarry MD; MAXX MITCHELL Agricultural Equipment Design Engineer: Signed 07-Dec-2014 Gastric Emptying Study Result: Comments: See Note; NOTES: [facility] Imaging Services [address] [place] [address] Nuclear Medicine Report MR#: [id number] Acct: [id number] Name: JOSELUIS MCKAY Rep #: [id number] : 1945 F 69 From: Sd Elmore DO PCP: Rosa Isela Mcgarry MD Status: REG CLI Study: Gastric Emptying Study Date of Exam: 12/07/14 Exam# [id number] Ordering Dr: Rosa Isela Mcgarry MD CLINICAL: [...] Sd Elmore DO at 22:08 EDT Tel [phone], Service support [phone], CC: Rosa Isela Mcgarry MD Agricultural Equipment Design Engineer: Signed 26-Nov-2014 Bilat Scrn Digital AND CAD Result: Comments: See Note; NOTES: [facility] Imaging Services [address] [place] [address] Breast Imaging Report MR#: [id number] Acct: [id number] Name: JOSELUIS MCKAY ep #: [id number] : 1945 F 69 From: Suleman Chan MD PCP: Rosa Isela Mcgarry MD Status: REG CLI Study: Bilat Scrn Digital AND CAD Date of Exam: 11/26/14 Exam# [id number] Ordering Dr: Rosa Isela Mcgarry MD MAMMOGRAPHY [...] Suleman Chan MD at 9:19 EDT Tel [phone], Service support [phone], CC: Rosa Isela Mcgarry MD Agricultural Equipment Design Engineer: Signed 26-Nov-2014 Thyroid Result: Comments: See Note; NOTES: [facility] Imaging Services [address] [place] [address] Ultrasound Report MR#: [id number] Acct: [id number] Name: JOSELUIS MCKAY Rep # : [id number] : 1945 F 69 From: Suleman Chan MD PCP: Rosa Isela Mcgarry MD Status: REG CLI Study: Thyroid Date of Exam: 11/26/14 Exam# [id number] Ordering Dr: Rosa Isela Mcgarry MD STUDY: [...] Chan MD 4 at 14:32 EDT Tel [phone], Service support [phone], CC: Rosa Isela Mcgarry MD Agricultural Equipment Design Engineer: Signed 16-Aug-2014 Abdomen Single View Result: Comments: See Note; NOTES: [facility] Imaging Services [address] [place] [address] Radiology Report MR#: [id number] Acct: [id number] Name: JOSELUIS MCKAY Rep #: [id number] : 1945 F 69 From: Man Garcia MD PCP: Rosa Isela Mcgarry MD Status: REG CLI Study: Abdomen Single View Date of Exam: 08/16/14 Exam# [id number] Ordering Dr: Jose Rodas MD [facility] DY: X-RAY - ABDOMEN/PELVIS REASON FOR [...] Rosa Isela Mcgarry MD; Jose Rodas MD Agricultural Equipment Design Engineer: Signed 05-Jul-2014 Operative Report Result: Comments: See Note; NOTES: [facility] Medical Records Department [address] [facility] [place] [address] Operative Report MR#: [id number] Acct: [id number] Name: JOSELUIS MCKAY Rep #: [id number] : 1945 69 From: Jose Rodas MD PCP: Rosa Isela Mcgarry MD Status: [facility] DATE OF SERVICE: 07/04/2014 DATE OF PROCEDURE: [...] skin. Jose Rodas MD T: NTS JOB: [id number] 07/05/14 0726 <Electronically signed by Jose Rodas MD> Date __ Jose Rodas MD CC: Rosa Isela Mcgarry MD; Jose Rodas MD Date Dictated: 07/04/141106 Date Transcribed: 07/04/141106 Agricultural Equipment Design Engineer: Signed 04-Jul-2014 Operative Report Result: Comments: See Note; NOTES: [facility] Medical Records Department [address] [place] [address] Operative Report 07/04/14 110 MR#: [id number] Acct: [id number] Name: JOSELUIS PANDYA Rep #: [id number] : 1945 69 From: Jose Rodas MD PCP: Rosa Isela Mcgarry MD Status: [facility] Y Location: [place] [address] Report of Operation Date of Procedure: 07/04/14 [...] Discharge Instruction Result: Comments: See Note; NOTES: [facility] Medical Records Department [address] [place] [address] Instructions for Home/Discharge Instructions 07/04/14 1100 MR#: [id number] Acc t: [id number] Name: JOSELUIS MCKAY Rep #: [id number] : 1945 69 From: Jose Rodas MD PCP: Rosa Isela Mcgarry MD Status: REG [facility] Discharge Diet: No Restrictions Discharge Activity: R eturn to Normal Activity, May Not Drive - for 2 days., May not drive while taking narcotic pain medications. Return to work on:: 07/09/14 May shower in (days): 1 Additional Activity Instructions:: I f you have any problems call [phone] and ask for your doctor to be [...] without Cont Result: Comments: See Note; NOTES: [facility] Imaging Services [address] [place] [address] CAT Scan Report MR#: [id number] Acct: [id number] Name: JOSELUIS MCKAY Rep #: [id number] : 1945 F 69 From: Escobar Marroquin DO PCP: Rosa Isela Mcgarry MD Status: REG CLI Study: Abdomen/Pelvis without Cont Date of Exam: 06/08/14 Exam# [id number] Ordering Dr: Jose Rodas MD [facility]: CT ABDOMEN AND PELVIS WITHOUT CONTRAST [...] Escobar Marroquin DO at 9:48 EST Tel [phone], Service support [phone], CC: Rosa Isela Mcgarry MD; Jose Rodas MD Agricultural Equipment Design Engineer: Signed 05-Jun-2014 PT Discharge Summary Result: Comments: See Note; NOTES: [facility] [address] [place] [address] Fax REHABILITATION SERVICES DISCHARGE SUMMARY MR#: [id number] Acct: [id number] Name: JOSELUIS MCKAY Rep #: [id number] : 1945 69 From: Samy Johnson Referring [...] transiti on to a Health [facility] under [employer]. We provided the patient with some exercises, [...] will resume her exercise here in the [place]. Otherwise, once again, thank you for this referral. Samy Johnson, PT T: NTS JOB: [id number] <Electronically signed by Samy Johnson > 06/05/14 1530 CC: Signed 31-May-2014 Kidney and Bladder Result: Comments: See Note; NOTES: [facility] Imaging Services [address] [place] [address] Ultrasound Report MR#: [id number] Acct: [id number] Name: JOSELUIS MCKAY Rep #: [id number] : 1945 F 69 From: Jesus Espinoza DO PCP: Rosa Isela Mcgarry MD Status: REG CLI Study: Kidney and Bladder Date of Exam: 05/31/14 Exam# [id number] Ordering Dr: Jose Rodas MD ST UDY: [...] t 7:44 EST Tel , Service support [phone], CC: Rosa Isela Mcgarry MD; Jose Rodas MD Agricultural Equipment Design Engineer: Signed 02-May-2014 Inital Evaluation - PT Result: Comments: See Note; NOTES: [facility] [address] [facility] [address] [place], [place] [address] Fax REHABILITATION SERVICES INITIAL EVALUATION MR#: [id number] Acct: [id number] Name: JOSELUIS MCKAY Rep #: [id number] : 1945 69 From: Samy Johnson Referring [...] education. Samy Johnson, PT T: VIKY JOB: [id number] <Electronically signed by Samy Johnson > 05/02/14 0838 CC: DD: 05/01 Signed For Medicare only, by signing this I certify the plan of care. Physicians Signature Date 07-Sep-2013 Knee 4 or More Views Result: Comments: See Note; NOTES: [facility] Imaging Services [address] [place] [address] Radiology Report MR#: [id number] Acct: [id number] Name: JOSELUIS MCKAY Rep #: [id number] : 1945 F 68 From: Suleman Chan MD PCP: Rosa Isela Mcgarry MD Status: REG CLI Study: Knee 4 or More Views Date of Exam: 09/07/13 Exam# [id number] Ordering Dr: Rosa Isela Mcgarry MD STUDY: [...] Suleman Chan MD at 14:43 EDT Tel [phone], Service support [phone], RAD/Knee 4 or More Views IMPRESSION: Chondrocalcinosis. Small joint effusion. El ectronically Signed: Suleman Chan MD at 14:43 EDT Tel [phone], Service support [phone], CC: Rosa Isela Mcgarry MD Agricultural Equipment Design Engineer: Signed Family History Unknown Family Member Name Dates Details Father Comments: prostate cancer, dementia, stroke Status: Active Mother Comments: still living glaucoma, hx. shingles in her eye, Type II diabetes Status: Active Social History Name Dates Details Caffeine Use Comments: 1 qd Status: Active Current Work/Study Status: Retired. 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 Status: Active Exercise History: Does not exercise. [...] kg/m2 Body Surface Area Calculated 1.75 m2 28-Par-467477:25 Pulse 70 /min Comments: Pattern: Regular Respiration [...] kg/m2 Body Surface Area Calculated 1.75 m2 39-Ndm-11714:48 Pulse 92 /min Comments: Pattern: Regular Respiration [...] kg/m2 Body Surface Area Calculated 1.72 m2 13-Unq-366523:23 Comments: hearing wnlDr. Midiol and had a [...] kg/m2 Body Surface Area Calculated 1.73 m2 3-Xvs-447794:00 Pulse 65 /min Comments: Pattern: Regular Respiration [...] m2 :22 Comments: pain more at a 10/21 now Temperature 98.2 f Comments: Method: Temporal [...] not hear, even with Doppler extremely faint [facility] Temperature 98.2 f Comments: Method: [...] kg/m2 Body Surface Area Calculated 1.66 m2 45-Twq-328244:40 Temperature 97.6 f Comments: Method: Temporal Pulse [...] 1.68 m2 Results Date Description Value Details :13 CBC W/Diff, Automated Comments: [facility] [address] [place], [place], [id number] Absolute Lymph 1.01 {X10_3/ul} (Normal) Range: 0.83-4.51 Absolute Neut 4.3 {X10_3/uL} (Normal) Range: 2.0-7.7 IM GRAN % 0.300 % (Normal) Range: 0.0-0.9 Comments: IG% - Immature Granulocytes (promyelocytes, myelocytes andmetamyelocytes) > 1% indicates that a LEFT SHIFT is Present. BASO% 0.5 % (Normal) Range: 0-1 EO% 3.4 % (Normal) Range: 0-5 MONO% 10.3 % (Abnormal) Range: 0-10 LY% 16.3 % (Abnormal) Range: 19-41 NEUT% 69.2 % (Normal) Range: 47-70 MPV 9.6 fL (Normal) Range: 6.2-12.0 PLT 279 K/mm3 (Normal) Range: 150-450 RDW SD 43.0 fL (Normal) Range: 35.1-43.9 RDW CV 14.9 % (Abnormal) Range: 11.6-14.6 MCHC 31.3 {g/gl} (Abnormal) Range: 32-36 MCH 25.1 pg (Abnormal) Range: 27.0-32.0 MCV 80.0 fL (Abnormal) Range: 81-99 HCT 36.1 % (Abnormal) Range: 37-47 HGB 11.3 g/dL (Abnormal) Range: 12.0-15.0 RBC 4.51 {M/mm3} (Normal) Range: 4.2-5.4 WBC 6.2 K/mm3 (Normal) Range: 4.4-11.0 :13 Comprehensive Metabolic Profil Comments: [facility] [address] [place], [place], [id number] GAP 5 (Normal) Range: 5-15 CO2 30.0 mmol/L (Normal) Range: 21.0-32.0 CL 107 mmol/L (Normal) Range: 98-107 K 4.3 mmol/L (Normal) Range: 3.5-5.1 NA 142 mmol/L (Normal) Range: 136-145 T BILI 0.40 mg/dL (Normal) Range: 0.20-1.00 ALT 30 U/L (Normal) Range: 13-56 ALK P 83 U/L (Normal) Range: 45-117 AST 25 U/L (Normal) Range: 15-37 CA 8.7 mg/dL (Normal) Range: 8.5-10.1 A/G 0.9 {RATIO} (Normal) Range: 0.9-2.4 GLOB 3.9 g/dL (Normal) Range: 2.2-4.2 ALB 3.5 g/dL (Normal) Range: 3.2-5.0 T PROT 7.4 g/dL (Normal) Range: 6.4-8.2 BUN/CRE 29.1 {RATIO} (Abnormal) Range: 10-20 EST GFR - AA 115 mL/min (Normal) Comments: GFR Calc EST GFR 95 mL/min (Normal) Comments: Non- GFR Calc CREAT,SERUM 0.65 mg/dL (Normal) Range: 0.55-1.02 Comments: The validity of the calculated GFR AND GFRAA in patients over70 years has not been determined. Clinical correlation isessential. BUN 19 mg/dL (Abnormal) Range: 7-18 GLU 93 mg/dL (Normal) Range: 74-106 Comments: Please note revised GLUCOSE reference range lxcitnmun19/02/2018. 57-Uyq-87825:13 Microalb:Creat Ratio,Random UR Comments: [facility] [address] [place], [address] MALB:CREAT 18.7 {mg/g_CRE} (Normal) MICROALBUMIN,UR 10.9 mg/L (Normal) UR CREAT 58.20 mg/dL (Normal) :13 Thyroid Stim Hormone (TSH) Comments: [facility] [address] [place], [place], [id number] TSH 1.28 {uIU/mL} (Normal) Range: 0.358-3.74 :13 Urinalysis, Complete Comments: How was Urine Obtained? CLEAN [facility] [address] [facility] [address] [place], [place], [id number] MUCUS, URINE 0 SEEN {/hpf} (Normal) BACTERIA 1+ {/hpf} (Normal) SQUAM EPI 0-5 SEEN {/hpf} [...] CLARITY Sl. Cloudy (Normal) COLOR Yellow (Normal) 43-Lrg-671611:25 Blood Glucose , Office (32778) Blood Glucose , Office 95 (Normal) 89-Qji-280713:25 HgA1C , Office (80495) HgA1C , Office 6.0 % (Normal) Range: 4.6 - 7.1 54-Ftu-647915:06 Urinalysis, Office (50159) UA - LEUKOCYTE ESTERASE Moderate (Normal) Comments: 70leu/uL UA - NITRITE Negative (Normal) UA - PROTEIN Negative mg/dL (Normal) UA - PH 6.0 (Normal) UA - BLOOD Negative (Normal) UA - SPECIFIC GRAVITY 1.030 (Abnormal) UA - KETONES Negative mg/dL (Normal) UA - BILIRUBIN + (Abnormal) UA - GLUCOSE Negative (Normal) 78-Tlb-817186:17 Bedside Glucose Comments: [facility] [address] [place] [address] BEDSIDE GLU 88 mg/dL (Normal) Range: 70-110 Comments: MANAGEMENT OF PATIENT CARE PER NURSING PROTOCOL :41 Blood Glucose , Office (61552) Blood Glucose , Office 82 (Normal) :41 HgA1C , Office (68193) HgA1C , Office 5.8 % (Normal) Range: 4.6 - 7.1 :18 Anaerobic & Aerobic Comments: Right breast; PATIENT NOT FASTINGPERFORMED BY: [facility] Pvwsgg8736 [facility] [id number] Information: RIGHT BREAST SRC:BR Culture (30872) Result 1 Mixed skin remy (Normal) Aerobic Culture Final report (Normal) Result 1 NANG72 (Normal) Comments: No anaerobic growth in 72 hours. Anaerobic Culture Final report (Normal) 8-Xwt-709410:44 Urinalysis, Complete Comments: Order Date: 11/21/17How was Urine Obtained? CLEAN [facility] Zwaxtlltzz10[address] [place], [address] MUCUS, URINE 0 SEEN {/hpf} [...] COLOR Yellow (Normal) :12 HgA1C , Office (44555) HgA1C , Office 5.9 % (Normal) Range: 4.6 - 7.1 :12 Blood Glucose , Office (37781) Blood Glucose , Office 122 (Normal) Comments: not fasting :59 Microscopic Examination Comments: PATIENT WAS FASTINGPERFORMED BY: [facility] Zedqpo6870 [facility] [id number] Bacteria None seen (Normal) Mucus Threads Present (Normal) Epithelial Cells (non renal) 0-10 {/hpf} (Normal) Range: 0 - 10 RBC 0-2 {/hpf} (Normal) Range: 0 - 2 WBC 0-5 {/hpf} (Normal) Range: 0 - 5 26-Ufo-298646:50 Urinalysis, Complete Comments: Order Date: 07/28/17How was Urine Obtained? [facility] Cqlzfzcgzv9337 [place], [address] MUCUS, URINE 0 SEEN {/hpf} [...] (Normal) CLARITY Clear (Normal) COLOR Yellow (Normal) 83-Anz-834978:01 Basic Metabolic Profile (BMP) Comments: [facility] Ebhyiykefz4757 [address] [place], [place], [address] GAP 8 (Normal) Range: 5-15 CO2 30.0 [...] A.D.A. criteria.Please note revised GLUCOSE reference range xyxgwxxsr05/02/2018. 23-Kvk-765488:01 Bedside Glucose Comments: [facility] LaboratoryPoint of Lyud1990 [facility] [address]. [place], [place] [id number] BEDSIDE GLU 109 mg/dL (Normal) Range: 70-110 Comments: MANAGEMENT OF PATIENT CARE PER NURSING PROTOCOL 14-Uop-734614:01 CBC W/Diff, Automated Comments: [facility] Qszldeohdt0740 [facility] [address]. [place], [place], [address] Absolute Lymph 1.03 {X10_3/ul} (Normal) Range: 0.83-4.51 [...] 5.6 K/mm3 (Normal) Range: 4.4-11.0 :59 PARATHORMONE (44898) Comments: PATIENT WAS FASTINGPERFORMED BY: [facility]Co[facility] HospitalQvzexm1799 [facility] [id number] PTH, Intact 22 pg/mL (Normal) Range: 15-65 :59 CALCIFIDIOL (74162) VIT D 25 Comments: PATIENT WAS FASTINGPERFORMED BY: [facility] Xwbzoy5590 [facility] [id number] Vitamin D, 25-Hydroxy 60.4 ng/mL (Normal) Range: 30.0-100.0 Comments: Vitamin D deficiency has been defined by the [place] of[facility] and an Endocrine Society practice guideline as alevel of serum 25-OH vitamin D less than 20 ng/mL (1,2).The Endocrine Society went on to further define vitamin Dinsufficiency as a level between 21 and 29 ng/mL (2).1. IOM ([place] of Medicine). 2010. Dietary reference intakes for calcium and D. [place]: The National Academies Press.2. Shelby CUEVAS, Sergio EAST, Anatoly MERCER, et al. Evaluation, treatment, and prevention of vitamin D deficiency: an Endocrine Society clinical practice guideline. JCEM. 2010; 96(7):1911-30. :59 TSH (81929) Comments: PATIENT WAS FASTINGPERFORMED BY: [facility] [id number] TSH 1.720 {uIU/mL} (Normal) Range: 0.450-4.500 :59 URINALYSIS, W/ MICRO (14829) Comments: PATIENT WAS FASTINGPERFORMED BY: [facility]6370 [facility] [id number] Microscopic Examination See below: (Normal) Comments: Microscopic was indicated and was performed. Nitrite, Urine Negative (Normal) Urobilinogen,Semi-Qn 0.2 mg/dL (Normal) Range: 0.2-1.0 Bilirubin Negative (Normal) Occult Blood Negative (Normal) Ketones Negative (Normal) Glucose Negative (Normal) Protein Negative (Normal) WBC Esterase Trace (Abnormal) Appearance Clear (Normal) Urine-Color Yellow (Normal) pH 6.0 (Normal) Range: 5.0-7.5 Specific [place] 1.017 (Normal) Range: 1.005-1.030 :59 MICROALBUMIN: CREATININE RATIO Comments: PATIENT WAS FASTINGPERFORMED BY: [facility]6370 [facility] [id number] (72790) AND (26454) Alb/Creat Ratio 8.7 {mg/g_creat} (Normal) Range: 0.0-30.0 Albumin, Urine 6.7 ug/mL (Normal) Creatinine, Urine 76.6 mg/dL (Normal) :59 METABOLIC PANEL, COMPREHENSIVE Comments: PATIENT WAS FASTINGPERFORMED BY: [facility] [id number] (88375) ALT (SGPT) 21 [iU]/L (Normal) Range: 0-32 [...] 8-27 Glucose 93 mg/dL (Normal) Range: 65-99 38-Nex-21030:59 LIPID PANEL (07410) Comments: PATIENT WAS FASTINGPERFORMED BY: [employer] Media GroupBreckinridge Memorial Hospital [id number] LDL/HDL Ratio 2.3 {ratio} (Normal) Range: 0.0-3.2 Comments: LDL/HDL Ratio Men Women 1/2 Avg.Risk 1.0 1.5 Av g.Risk 3.6 3.2 2X Avg.Risk 6.2 5.0 3X Avg.Risk 8.0 6.1 LDL Cholesterol Calc 126 mg/dL (Abnormal) Range: 0-99 VLDL Cholesterol Tab 16 mg/dL (Normal) Range: 5-40 HDL Cholesterol 56 mg/dL (Normal) Triglycerides 78 mg/dL (Normal) Range: 0-149 Cholesterol, Total 198 mg/dL (Normal) Range: 100-199 67-Ycr-35244:59 CBC W/AUTO DIFF WBC (28599) Comments: PATIENT WAS FASTINGPERFORMED BY: BBE6370 [facility] [id number]; ov 10/05 Immature Grans (Abs) 0.0 {x10E3/uL} [...] (Normal) Range: 3.4-10.8 :02 HgA1C , Office (47342) HgA1C , Office 5.6 % (Normal) Range: 4.6 - 7.1 :02 Blood Glucose , Office (82859) Blood Glucose , Office 118 (Normal) :38 HgA1C , Office (53238) HgA1C , Office 5.7 % (Normal) Range: 4.6 - 7.1 :38 Blood Glucose , Office (15464) Blood Glucose , Office 90 (Normal) 1-Dyb-460746:20 Microscopic Examination Comments: PATIENT WAS FASTINGPERFORMED BY: [facility] [id number] Bacteria Few (Normal) Mucus Threads Present (Normal) Epithelial Cells (non 0-10 {/hpf} (Normal) Range: 0 - 10 renal) RBC None seen {/hpf} Range: 0 - 2 (Normal) WBC 0-5 {/hpf} (Normal) Range: 0 - 5 52-Pqu-708657: COLON BIOPSY (CHOOSE See Note (Normal) Comments: [facility] Ynujznvnjt2289 [address] [place], [address] 42 SITE) Comments: Patient: JOSELUIS MCKAY : 1945 (72/F) Acct Num: [id number] Phys: Kylah FLORES,Cruz Unit Num: [id number] Loc: [facility] [place] Specimen: [id number] Received: 01/12/17 - 1302 Spec Type : COLON BX TISSUES TISSUES: GROSS DESCRIPTION Received in fixative is one container labeled with the patient's name and designated mid sigmoid polyp. The specimen consists of one i rregular fragmentof light harris soft tissue that measures 0.2 x 0.2 x 0.1 cm. The specimen is totally submitted in one cassette. / SJ:zach 01/12/17 TC:5 CPT: 43092 HEADER OPERATION: Colonoscopy P RE-OP DIAGNOSIS: History of polyps TISSUE SUBMITTED: Mid sigmoid polyp MICROSCOPIC DESCRIPTION Slides are reviewed. MICROSCOPIC DIAGNOSIS Mid sigmoid polyp, biopsy: Hyperplastic poly p. AM:zach 01/13/17 Signed [facility] 01/13/17 <signature on file> 41-Hvu-229240:34 Bedside Glucose Comments: [facility] LaboratoryPoint of Muda[address] [place] [address] BEDSIDE GLU 94 mg/dL (Normal) Range: 70-110 Comments: MANAGEMENT OF PATIENT CARE PER NURSING PROTOCOL 4-Wow-823551:20 URINALYSIS, W/ MICRO (66106) Comments: PATIENT WAS FASTINGPERFORMED BY: [facility] Toupau3025 Fed[address] Ferrera [place] [id number] Microscopic Examination See below: (Normal) Comments: Microscopic was indicated and was performed. Nitrite, Urine Negative (Normal) Urobilinogen,Semi-Qn 0.2 mg/dL (Normal) Range: 0.2-1.0 Bilirubin Negative (Normal) Occult Blood Negative (Normal) Ketones Negative (Normal) Glucose Negative (Normal) Protein Negative (Normal) WBC Esterase 1+ (Abnormal) Appearance Clear (Normal) Urine-Color Yellow (Normal) pH 6.5 (Normal) Range: 5.0-7.5 Specific [place] 1.008 (Normal) Range: 1.005-1.030 3-Rzf-588827:20 MICROALBUMIN: CREATININE RATIO Comments: PATIENT WAS FASTINGPERFORMED BY: [employer] Dmznsx9382 [employer]cover [facility] CenterOptinuityAtrium [facility] [id number] (79263) AND (32529) Microalb/Creat Ratio 11.5 {mg/g_creat} (Normal) Range: 0.0-30.0 Microalbumin, Urine 3.7 ug/mL (Normal) Creatinine, Urine 32.3 mg/dL (Normal) 4-Sve-534555:20 METABOLIC PANEL, COMPREHENSIVE Comments: PATIENT WAS FASTINGPERFORMED BY: [employer] Anais70 GC-Rise PharmaceuticalAtrium Health Union West [id number] (75348) ALT (SGPT) 27 [iU]/L (Normal) Range: 0-32 [...] Glucose, Serum 78 mg/dL (Normal) Range: 65-99 1-Rew-802970:20 TSH (18928) Comments: PATIENT WAS FASTINGPERFORMED BY: [employer]ip Ehmels1712 Mistry RoadDublin [place] [id number] TSH 22.910 {uIU/mL} (Abnormal) Range: 0.450-4.500 :20 WKVQY-OCHBSVCMAGK-MFLIH (71578) Comments: PATIENT WAS FASTINGPERFORMED BY: [employer] [facility] Nsrajz5439 Mistry RoadDublin [place] [id number] AFP, Serum, Tumor Marker 1.6 ng/mL (Normal) Range: 0.0-8.3 Comments: Suzanne ECLIA methodology :20 CALCIFEDIOL (43188) Comments: PATIENT WAS FASTINGPERFORMED BY: [employer] [facility] Gikfrl3702 Mistry RoadDublin [place] [id number] Vitamin D, 25-Hydroxy 47.7 ng/mL (Normal) Range: 30.0-100.0 Comments: Vitamin D deficiency has been defined by the [place] of[place]icine and an Endocrine Society practice guideline as alevel of serum 25-OH vitamin D less than 20 ng/mL (1,2).The Endocrine Society went on to further define vitamin Dinsufficiency as a level between 21 and 29 ng/mL (2).1. IOM ([place] of Medicine). 2010. Dietary reference intakes for calcium and D. [place]: The National Academies Press.2. Shelby CUEVAS, Sergio EAST, Anatoly MERCER, et al. Evaluation, treatment, and prevention of vitamin D deficiency: an Endocrine Society clinical practice guideline. JCEM. 2010; 96(7):1911-30. 2-Aba-145120:20 LIPID PANEL (65630) Comments: PATIENT WAS FASTINGPERFORMED BY: DNage Akztsj6732 [facility] [id number] LDL/HDL Ratio 2.4 {ratio_units} (Normal) Range: 0.0-3.2 Comments: LDL/HDL Ratio Men Women 1/2 Avg.Risk 1.0 1.5 Av g.Risk 3.6 3.2 2X Avg.Risk 6.2 5.0 3X Avg.Risk 8.0 6.1 LDL Cholesterol Calc 147 mg/dL (Abnormal) Range: 0-99 VLDL Cholesterol Tab 34 mg/dL (Normal) Range: 5-40 HDL Cholesterol 61 mg/dL (Normal) Triglycerides 172 mg/dL (Abnormal) Range: 0-149 Cholesterol, Total 242 mg/dL (Abnormal) Range: 100-199 6-Wwh-555542:20 CBC W/AUTO DIFF WBC (02940) Comments: PATIENT WAS FASTINGPERFORMED BY: BBE6370 [facility] [id number] Immature Grans (Abs) 0.0 {x10E3/uL} (Normal) Range: [...] (Normal) Range: 3.4-10.8 :06 HgA1C , Office (55168) HgA1C , Office 5.5 % (Normal) Range: 4.6 - 7.1 :06 Blood Glucose , Office (92441) Blood Glucose , Office 122 (Normal) :49 Comprehensive Metabolic Profil Comments: [facility] Sscfxazeov1154 [place], [address] GAP 7 (Normal) Range: 5-15 CO2 29.0 [...] <126 mg/dLsuggests IMPAIRED HOMEOSTASIS per A.D.A. criteria. 2-Pvp-868600:49 Magnesium Comments: [facility] [address] [place], [address] MG 2.0 mg/dL (Normal) Range: 1.8-2.4 5-Qjp-375022:49 Thyroid Stim Hormone (TSH) Comments: [facility] [address] [place], [id number] TSH 3.30 {uIU/mL} (Normal) Range: 0.358-3.74 6-Rhw-303435:49 Vitamin D,25 Hydroxy Comments: [facility] Q[address] [place], [address] Vitamin D 25-OH 32.0 ng/mL (Normal) Comments: Vitamin D 25(OH) Status Range Deficiency <20 ng/mL (50nmol/L) Insuffciency 20 - 30 ng/mL (50 - 75 nmol/L) Sufficiency 30 - 100 ng/mL (75 - 250 nmol/L) Toxicity >100 ng/mL (>250 nmol/L) 7-Ssa-331618:20 HgA1C , Office (79914) HgA1C , Office 5.7 % (Normal) Range: 4.6 - 7.1 7-Tqg-445044:20 Blood Glucose , Office (94118) Blood Glucose , Office 74 (Normal) 42-Ffh-969896:26 Culture, Aerobic, Comments: PATIENT NOT FASTINGPERFORMED BY: [facility]CoCo[facility] HospitalWbnest3524 [facility] [id number] Information: RIGHT THUMB SRC:RU Bacterial ID (55836) Result 2 BETAGB (Abnormal) Comments: Beta hemolytic [...] Meropenem Aerobic Bacterial Final report (Abnormal) Culture 62-Fie-347557:27 HgA1C , Office (66409) HgA1C , Office 5.7 % (Normal) Range: 4.6 - 7.1 00-Qdl-872255:27 Blood Glucose , Office (36495) Blood Glucose , Office 84 (Normal) 64-Thz-838566:30 CALCIFEDIOL (84349) Comments: PATIENT NOT FASTINGPERFORMED BY: [facility] Vnrsso3098 [facility] [id number] Vitamin D, 25-Hydroxy 37.5 ng/mL (Normal) Range: 30.0-100.0 Comments: Vitamin D deficiency has been defined by the [place] of[place]icine and an Endocrine Society practice guideline as alevel of serum 25-OH vitamin D less than 20 ng/mL (1,2).The Endocrine Society went on to further define vitamin Dinsufficiency as a level between 21 and 29 ng/mL (2).1. IOM ([place]). 2010. Dietary reference intakes for calcium and D. [place]: The National Academies Press.2. Shelby MF, Sergio EAST, Anatoly MERCER, et al. Evaluation, treatment, and prevention of vitamin D deficiency: an Endocrine Society clinical practice guideline. JCEM. 2010; 96(7):1911-30. :30 T4, FREE (THYROXINE) (39585) Comments: PATIENT NOT FASTINGPERFORMED BY: [facility] Fltuho4954 M[address] [facility] [place] [id number] T4,Free(Direct) 1.75 ng/dL (Normal) Range: 0.82-1.77 : TSH (89002) Comments: PATIENT NOT FASTINGPERFORMED BY: [facility] Babvjl7059 M[address] [facility] [place] [id number] TSH 0.795 {uIU/mL} (Normal) Range: 0.450-4.500 :30 Metabolic Panel, Comments: PATIENT NOT FASTINGPERFORMED BY: [facility] Acohsy4888 [address] [facility] [place] [id number] Information: [id number] Comprehensive (89157) ALT (SGPT) 26 [iU]/L (Normal) Range: 0-32 [...] Glucose, Serum 92 mg/dL (Normal) Range: 65-99 8-Xnl-156438:47 Urinalysis, Complete Comments: Order Date: 01/24/16How was Urine Obtained? CLEAN [facility] Ouafityhvx2508 [facility] [place], [address] MUCUS, URINE 0 SEEN {/hpf} [...] (Normal) :47 Urine Drug Screen (VISTA) Comments: [facility] Tfulkhqcwn0378 [facility] [place], [address] THC NEGATIVE (Normal) PCP NEGATIVE [...] TESTING MUST BE ORDERED SEPARATELY. USE TESTMNEMONIC: [facility] 6-Jcz-644584:17 Alcohol, Blood (Medical)-Serum Comments: [facility] Qetsvvaecc2617 [place], [address] SERUM ETOH 11.0 mg/dL (Normal) Comments: The serum:whole blood ethanol ratio is approximately 1.14and varies slightly with hematocrit.Medical Alcohol reference interval and critical value innon-tolerant individuals; 50 - 100 Impairment 100 Intoxication 100 - 250 Severe Poisoning 250 - 400 Deep/possible fatal coma 4-Wuv-950381:17 Basic Metabolic Profile (BMP) Comments: [facility] Ozdohvfije7459 [address] [place], [place], [address] GAP 7 (Normal) Range: 5-15 CO2 30.0 [...] Range: 70-110 :17 CBC W/Diff, Automated Comments: [facility] Vacrdgnkmz[address] [place], [address] Absolute Lymph 1.58 {X10_3/ul} (Normal) [...] 4.4-11.0 :17 Thyroid Stim Hormone (TSH) Comments: [facility] Kwlwkemdfv5717 [place], [address] TSH 6.50 {uIU/mL} (Abnormal) Range: 0.358-3.74 :54 T4 Free Direct Comments: [facility] Dlkuhwqfyh9881 Deju[address] [place], [address] T4 FREE DIRECT 1.03 ng/dL (Normal) Range: 0.76-1.46 02-Sil-095671:54 Thyroid Stim Hormone (TSH) Comments: [facility] Tzcnnhximi[address]47 [place], [address] TSH 6.21 {uIU/mL} (Abnormal) Range: 0.358-3.74 31-Gba-403678:47 TSH (THYROID STIMULATING Comments: PATIENT NOT FASTINGPERFORMED BY: [facility] Terain0483 [facility] [id number] Information: [id number] HORMONE) (18487) TSH 12.540 {uIU/mL} (Abnormal) Range: 0.450-4.500 :08 Comprehensive Metabolic Profil Comments: [facility] Ciccjathvj4675 De[place], [place], [address] GAP 6 (Normal) Range: 5-15 CO2 28.0 [...] per A.D.A. criteria. :08 Free T3 Comments: [facility] Bahw[address] [place], [address] FREE T3 1.7 pg/mL (Abnormal) Range: 2.18-3.98 :08 Magnesium Comments: [facility] J[address] [place], [address] MG 2.0 mg/dL (Normal) Range: 1.8-2.4 :08 T4 Free Direct Comments: [facility] T[address]ivrslt[address] [place], [address] T4 FREE DIRECT 1.01 ng/dL (Normal) Range: 0.76-1.46 :08 Thyroid Stim Hormone (TSH) Comments: [facility] D[address]xvuqnifr[address] [place], [address] TSH 4.70 {uIU/mL} (Abnormal) Range: 0.358-3.74 :08 Vitamin D,25 Hydroxy Comments: [facility] Yvkjvd[address] [place], [address] Vitamin D 25-OH 38.3 ng/mL (Normal) Comments: Vitamin D 25(OH) Status Range Deficiency <20 ng/mL (50nmol/L) Insuffciency 20 - 30 ng/mL (50 - 75 nmol/L) Sufficiency 30 - 100 ng/mL (75 - 250 nmol/L) Toxicity >100 ng/mL (>250 nmol/L) :03 CALCIFEDIOL (73621) Comments: PATIENT NOT FASTINGPERFORMED BY: [facility] Rsfwku8987 [address] [facility] [place] [id number] Vitamin D, 25-Hydroxy 38.4 ng/mL (Normal) Range: 30.0-100.0 Comments: Vitamin D deficiency has been defined by the [place] of[place]icine and an Endocrine Society practice guideline as alevel of serum 25-OH vitamin D less than 20 ng/mL (1,2).The Endocrine Society went on to further define vitamin Dinsufficiency as a level between 21 and 29 ng/mL (2).1. IOM ([place] of [place]). 2010. Dietary reference intakes for calcium and D. [place]: The National Academies Press.2. Shelby MF, Sergio EAST, Anatoly MERCER, et al. Evaluation, treatment, and prevention of vitamin D deficiency: an Endocrine Society clinical practice guideline. JCEM. 2010; 96(7):1911-30. :03 T4, FREE (THYROXINE) Comments: PATIENT NOT FASTINGPERFORMED BY: [facility] Zngfed7846 [facility] [id number] Information: [id number] (36890) T4,Free(Direct) 1.08 ng/dL (Normal) Range: 0.82-1.77 :03 T3, FREE (TRIDOTHYRONINE) (82770) Comments: PATIENT NOT FASTINGPERFORMED BY: [facility] Boknfk1737 M[address] [facility] [place] [id number] Triiodothyronine,Free,Serum 2.2 pg/mL (Normal) Range: 2.0-4.4 :03 TSH (64194) Comments: PATIENT NOT FASTINGPERFORMED BY: [facility] Ixlxyv9350 M[address] [facility] [place] [id number] TSH 25.300 {uIU/mL} (Abnormal) Range: 0.450-4.500 9-Hvk-754491:10 Urinalysis, Complete Comments: How was Urine Obtained? [facility] Srtsxplwqe5806 PRANAV [place], [address] ; managed by another doctor MUCUS, URINE [...] (Normal) CLARITY Clear (Normal) COLOR Yellow (Normal) 9-Wlc-492231:30 Basic Metabolic Profile (BMP) Comments: 'TROP' Serial specimen #1, #2, #3, or #4: [address] [place] [address] Bvqbnyosdr4568 Dejuan [place], [place], [address] GAP 1 (Abnormal) Range: 5-15 CO2 29.0 [...] 7-18 GLU 108 mg/dL (Normal) Range: 70-110 6-Mli-045166:30 CBC W/Diff, Automated Comments: [facility] Ignvuiyaps9115 [address] [place], [address] Absolute Lymph 1.66 {X10_3/ul} (Normal) [...] Serial specimen #1, #2, #3, or #4: [facility] Dlghkqvlld2718 [place], [address] TROPONIN-I < 0.02 ng/mL (Normal) Comments: TROPONIN-I EXPECTED VALUES <0.05 NEGATIVE 0.06 - 0.59 AT RISK OF NH > OR = 0.60 SUGGEST NH 99-Kly-075745:20 Pap IG, HPV-hr Comments: No. of containers..01 CYTYC Thin Prep VialPERFORMED BY: WB [facility] Usspqnawvl033 [address] [facility] [place] [id number] BY: =G [facility] Ngsggoewyu785 [address] [facility] W [id number] Information: [id number] HPV, high-risk Negative Comments: This high-risk HPV [...] PRESENT.THIS SPECIMEN WAS RESCREENED PART OF OUR TEACHER EMOTIONALLY IMPAIRED PROGRAM.Satisfactory for evaluation. (Normal) Endocervical component may not bedistinguished in cases of atrophy.Areas of partially obscuring inflammtory exudate are present.Z11.51Z12.4Jaeloy Holliday, Tool And Die Manager (ASCP)Bernadine Camargo Tool And Die Manager (ASCP) Please note SPRCS Comments: No. of containers..01 CYTYC Thin Prep VialPERFORMED BY: WB CYTIMMUNE SCIENCESCorp Shngdrbcsh491 [facility] [place] [id number] BY: =G [facility] Akkwkrwffb481 [address] [facility] [place] [id number] (Normal) Comments: We have received your request for additional testing or testverification. You will be notified if we are unable to processyour request. 0:20 Written COMMNT Comments: No. of containers..01 CYTYC Thin Prep VialPERFORMED BY: WB [address] [id number] BY: =G [address] [id number] Authoriz RCV (Normal) Comments: Written Authorization Received.AUTHORIZATION SIGNED ROSA ISELA MICKI ON 10/11/2015 0:20 91-Mve-285012:49 OVA & PARASITE DIR SMEAR Comments: PATIENT NOT FASTINGPERFORMED BY: CYTIMMUNE SCIENCES[address] [id number] (49851) Result 1 NOCP (Normal) Comments: No ova, cysts, or parasites seen. Ova + Parasite Exam Final report (Normal) Comments: These results were obtained using wet preparation(s) and trichromestained smear. This test does not include testing for Cryptosporidiumparvum, Cyclospora, or Microsporidia. 81-Hpe-932839:49 OCCULT BLOOD FECES SCREEN Comments: PATIENT NOT FASTINGPERFORMED BY: [place] 2925870 [facility] [id number] (50636) Occult Blood, Fecal, IA Negative (Normal) 74-Pmd-830329:49 LEUKOCYTE COUNT, FECAL Comments: PATIENT NOT FASTINGPERFORMED BY: CYTIMMUNE SCIENCESDebra V[place] 2723170 [facility] [id number] (68754) Result 1 NWBC (Normal) Comments: No white blood cells seen. White Blood Cells (WBC), Final report (Normal) Stool 16-Mmp-347684:50 C-DIFFICILE, STOOL (92731) Comments: PATIENT NOT FASTINGPERFORMED BY: [address] [id number] Information: [id number] C difficile Toxins A+B, EIA Negative (Normal) 46-Umi-560820:49 RUBENS CULTURE-STOOL (25030) Comments: PATIENT NOT FASTINGPERFORMED BY: [place] 2925870 [facility] [id number] Information: SRC:STL [id number] E coli Shiga Toxin EIA Negative (Normal) Result 1 NCI (Normal) Comments: No Campylobacter species isolated. Campylobacter Culture Final report (Normal) Result 1 NSS (Normal) Comments: No Salmonella or Shigella recovered. Salmonella/Shigella Screen Final report (Normal) 0-Kde-933718:42 Calcium Ionized Comments: [facility] (refer to report for specific site)refer to report for address and phone [place] [address] 4.8 mg/dL (Normal) Range: 4.5-5.6 Comments: Performed at: [address] [id number] Director: Rocky Dudley PhD, Phone: [phone] 21-Tee-954043:17 URINE RUBENS CULTURE-JAYDEN COL Comments: PATIENT NOT FASTINGPERFORMED BY: [address] [id number] Information: SRC:[facility] [id number] COUNT (68750) Result 1 MUG (Normal) Comments: Mixed urogenital flora4,000 Colonies/mL Urine Culture,Comprehensive Final report (Normal) 89-Aer-423388:18 PT (PROTHROMBIN TIME) (42638) Comments: PATIENT NOT FASTINGPERFORMED BY: [address] [id number] Prothrombin Time 10.1 {sec} (Normal) Range: 9.1-12.0 INR 1.0 (Normal) Range: 0.8-1.2 Comments: Reference interval is for non-anticoagulated patients. . Suggested INR therapeutic range for Vitamin K anta gonist therapy: Standard Dose (moderate intensity therapeutic range): 2.0 - 3.0 Higher intensity therapeutic range 2.5 - 3.5 95-Tcg-932674:18 CBC, Platelets & Auto Comments: PATIENT NOT FASTINGPERFORMED BY: [address] [id number] Information: [id number] Diff (87482) Immature Grans (Abs) 0.0 {x10E3/uL} (Normal) Range: [...] 3.77-5.28 WBC 6.0 {x10E3/uL} (Normal) Range: 3.4-10.8 85-Mty-321651:18 Metabolic Panel, Basic Comments: PATIENT NOT FASTINGPERFORMED BY: [facility] Mwugcw3718 [facility] [id number] (08874) Calcium, Serum 10.5 mg/dL (Abnormal) Range: 8.7-10.3 [...] Glucose, Serum 76 mg/dL (Normal) Range: 65-99 66-Kdp-783233:40 Blood Glucose , Office (10794) Blood Glucose , Office 112 (Normal) :40 HgA1C , Office (58329) HgA1C , Office 5.6 % (Normal) Range: 4.6 - 7.1 81-Ltn-835317:49 Urinalysis, Office (29331) UA - LEUKOCYTE ESTERASE Small (Normal) UA - NITRITE Negative (Normal) URINE UROBILINGN JAYDEN TIMED Normal mg/dL (Normal) UA - PROTEIN Negative mg/dL (Normal) UA - PH 6 (Abnormal) UA - BLOOD Negative (Normal) UA - SPECIFIC GRAVITY 1.030 (Abnormal) UA - KETONES Negative mg/dL (Normal) UA - BILIRUBIN Negative (Normal) UA - GLUCOSE Negative (Normal) 4-Ipm-281917:00 Basic Metabolic Profile (BMP) Comments: [facility] [address] [place], [place], [address] GAP 6 (Normal) Range: 5-15 CO2 28.0 [...] 7-18 GLU 89 mg/dL (Normal) Range: 70-110 0-Vun-514308:33 CALCIFIDIOL (54399) VIT D 25 Comments: fax copy to Dr. Mitchell [phone]; PATIENT NOT FASTINGPERFORMED BY: CB LabCoAmanda [place] [id number] [employer]in [place] [id number] Vitamin D, 25-Hydroxy 34.2 ng/mL (Normal) Range: 30.0-100.0 Comments: Vitamin D deficiency has been defined by the [place] and an Endocrine Society practice guideline as alevel of serum 25-OH vitamin D less than 20 ng/mL (1,2).The Endocrine Society went on to further define vitamin Dinsufficiency as a level between 21 and 29 ng/mL (2).1. IOM ([place]). 2010. Dietary reference intakes for calcium and D. [place]: The National Academies Press.2. Shelby MF, Sergio NC, Anatoly MERCER, et al. Evaluation, treatment, and prevention of vitamin D deficiency: an Endocrine Society clinical practice guideline. JCEM. 2010; 96(7):1911-30. 9-Mqz-365728:33 PTH (PARATHORMONE) (29367) Comments: fax copy to Dr. Mitchell [phone]; PATIENT NOT FASTINGPERFORMED BY: Ludic Labslin6370 [employer] [place] [id number] PTH, Intact 67 pg/mL (Abnormal) Range: 15-65 2-Dwx-267564:33 Metabolic Panel, Comments: fax to Dr. Mitchell fax [phone]; PATIENT NOT FASTINGPERFORMED BY: Poptip Hepyxv4192 [facility] [id number] Information: [id number], [id number] Comprehensive (81055) ALT (SGPT) 17 [iU]/L (Normal) Range: 0-32 [...] 6.2 mg/dL Comments: PATIENT NOT FASTINGPERFORMED BY: Dekko Nymdde6798 [facility] [id number] :11 (Abnormal) Range: 4.5-5.6 PTH, Intact 59 pg/mL (Normal) Comments: PATIENT NOT FASTINGPERFORMED BY: Dekko Hsgskd9816 [facility] [id number] :11 Range: 15-65 Thyroxine (T4) 8.6 ug/dL (Normal) Comments: PATIENT NOT FASTINGPERFORMED BY: D[facility]koCooper University HospitalUrytqy2356 [facility] [id number] :11 Range: 4.5-12.0 Triiodothyronine (T3) 96 ng/dL (Normal) Comments: PATIENT NOT FASTINGPERFORMED BY: Dekko Qpivia8979 [facility] [id number] :11 Range: 71-180 TSH 0.985 {uIU/mL} Comments: PATIENT NOT FASTINGPERFORMED BY: DekkoCooper University HospitalObqwbd4761 [facility] [id number] Information: [id number] :11 (Normal) Range: 0.450-4.500 :27 HgA1C , Office (75089) HgA1C , Office 6.0 % (Normal) Range: 4.6 - 7.1 :27 Blood Glucose , Office (75448) Blood Glucose , Office 168 (Normal) Comments: already ate today :54 Basic Metabolic Panel (8) Comments: PATIENT NOT FASTINGPERFORMED BY: [facility] Hqajon1378 [facility] [id number] Information: [id number] Calcium, Serum 10.5 mg/dL (Abnormal) Range: 8.7-10.3 [...] (Normal) Range: 65-99 :18 HgA1C , Office (46947) HgA1C , Office 5.8 % (Normal) Range: 4.6 - 7.1 8-Odq-545137:18 Blood Glucose , Office (20048) Blood Glucose , Office 74 (Normal) :42 Culture, Urine Comments: Test performed at:[facility] [address] [place], [place] [id number] CUUR See Note (Normal) Comments: Urine CultureORGANISM [...] $ 1 S(NF) indicates non-formulary drug at [facility]. Approval by Infectious Disease Specialist required before non-formulary drugs may be or dered and/or dispensed. * CLSI guidelines does not recommend testing of cephalosporins. This interpretation is deduced from Beta-lactam/penicillin results. 00-Abr-189008:42 Urinalysis, Routine (Dipstick) Comments: How was Urine Obtained? CLEAN CATCHTest performed at:[facility] [address] [place] [address] LEUK ESTERASE 500 /ul (Abnormal) OCCULT BLOOD-UR Negative /ul (Normal) NITRITE UR Negative (Normal) UROBILI Normal mg/dL (Normal) PROT DIPSTX Negative mg/dL (Normal) pH UR 5.0 (Normal) Range: 5.0 - 8.0 SP.GR. DIPSTX 1.025 (Normal) Range: 1.002-1.030 KETONE UR Negative mg/dL (Normal) BILIRUBIN URINE Negative mg/dL (Normal) GLUCOSE, UR Normal mg/dL (Normal) CLARITY Sl. Cloudy (Normal) COLOR Yellow (Normal) 40-Ems-175834:01 Bedside Glucose Comments: Test performed at:[facility] [address] [place] [address] BEDSIDE GLU 94 mg/dL (Normal) Range: 70-110 Comments: Policy and Physicians Orders followedMANAGEMENT OF PATIENT CARE PER NURSING PROTOCOL 7-Fvt-881752:45 Culture, Urine Comments: Test performed at:[facility] [address] [place] [address] CUUR See Note (Normal) Comments: [...] $ <=20 S(NF) indicates non-formulary drug at [facility]. Approval by Infectio us Disease Specialist required before non-formulary drugs may be ordered and/or dispensed. 1-Kkn-538712:45 Urinalysis, Routine (Dipstick) Comments: How was Urine Obtained? CLEAN CATCHTest performed at:[facility] [address] [place] [address] LEUK ESTERASE 25 /ul (Abnormal) OCCULT BLOOD-UR 150 /ul (Abnormal) NITRITE UR Negative (Normal) UROBILI Normal mg/dL (Normal) PROT DIPSTX Negative mg/dL (Normal) pH UR 6.0 (Normal) Range: 5.0 - 8.0 SP.GR. DIPSTX 1.015 (Normal) Range: 1.002-1.030 KETONE UR Negative mg/dL (Normal) BILIRUBIN URINE Negative mg/dL (Normal) GLUCOSE, UR Normal mg/dL (Normal) CLARITY Clear (Normal) COLOR Yellow (Normal) 2-Wex-871178:12 Microscopic Examination Comments: PATIENT WAS FASTINGPERFORMED BY: LabCoCooper University HospitalBtotar4614 [facility] [id number] Bacteria Few (Normal) Mucus Threads Present (Normal) Epithelial Cells (non renal) 0-10 {/hpf} (Normal) Range: 0 - 10 RBC 0-2 {/hpf} (Normal) Range: 0 - 2 WBC 6-10 {/hpf} (Abnormal) Range: 0 - 5 9-Grd-449484:09 Urinalysis, Office (20652) UA - LEUKOCYTE ESTERASE Small (Normal) UA - NITRITE Negative (Normal) URINE UROBILINGN JAYDEN TIMED Normal mg/dL (Normal) UA - PROTEIN Negative mg/dL (Normal) UA - PH 7 (Normal) UA - BLOOD Hemolyzed Trace (Normal) UA - SPECIFIC GRAVITY 1.020 (Normal) UA - KETONES Negative mg/dL (Normal) UA - BILIRUBIN Negative (Normal) UA - GLUCOSE Negative (Normal) :53 HgA1C , Office (78634) HgA1C , Office 6.1 % (Normal) Range: 4.6 - 7.1 22-May-20149:53 Blood Glucose , Office (91068) Blood Glucose , Office 100 (Normal) 2-Qtj-223421:07 Urinalysis, Office (02716) UA - LEUKOCYTE ESTERASE Small (Normal) UA - NITRITE Negative (Normal) URINE UROBILINGN JAYDEN TIMED Normal mg/dL (Normal) UA - PROTEIN 100 mg/dL (Normal) UA - PH 6.5 (Normal) UA - BLOOD ++ (Abnormal) UA - SPECIFIC GRAVITY 1.025 (Normal) UA - KETONES Negative mg/dL (Normal) UA - BILIRUBIN Negative (Normal) UA - GLUCOSE Negative (Normal) 58-Xwo-783933:06 URINE RUBENS CULTURE-IDENTIFICATN Comments: PATIENT NOT FASTINGPERFORMED BY: [facility] [id number] Information: [id number] (54015) Result 1 MUG (Normal) Comments: Mixed urogenital flora1,000 Colonies/mL Urine Culture,Comprehensive Final report (Normal) 30-Hwc-704942:43 Urinalysis, Office (39436) UA - LEUKOCYTE ESTERASE Large (Normal) UA - NITRITE Negative (Normal) URINE UROBILINGN JAYDEN TIMED 2 mg/dL (Normal) UA - PROTEIN Negative mg/dL (Normal) UA - PH 6.0 (Normal) UA - BLOOD Hemolyzed Large (Normal) UA - SPECIFIC GRAVITY 1.015 (Normal) UA - KETONES Negative mg/dL (Normal) UA - BILIRUBIN Negative (Normal) UA - GLUCOSE Negative (Normal) 6-Oyw-950364:12 TSH (01228) Comments: PATIENT WAS FASTINGPERFORMED BY: [facility] [id number] TSH 1.070 {uIU/mL} (Normal) Range: 0.450-4.500 2-Kzu-426060:12 URINALYSIS, W/ MICRO (93562) Comments: PATIENT WAS FASTINGPERFORMED BY: [facility] [id number] Microscopic Examination See below: (Normal) Comments: Microscopic was indicated and was performed. Microscopic Examination MICRON (Normal) Comments: Microscopic follows if indicated. Nitrite, Urine Negative (Normal) Urobilinogen,Semi-Qn 0.2 mg/dL (Normal) Range: 0.0-1.9 Bilirubin Negative (Normal) Occult Blood Negative (Normal) Ketones Negative (Normal) Glucose Negative (Normal) Protein Negative (Normal) WBC Esterase Negative (Normal) Appearance Clear (Normal) Urine-Color Yellow (Normal) pH 7.0 (Normal) Range: 5.0-7.5 Specific [place] 1.015 (Normal) Range: 1.005-1.030 9-Lye-336116:12 METABOLIC PANEL, COMPREHENSIVE Comments: PATIENT WAS FASTINGPERFORMED BY: [facility] Uytnqa1799 [facility] [id number] (10518) ALT (SGPT) 20 [iU]/L (Normal) Range: 0-32 [...] Glucose, Serum 86 mg/dL (Normal) Range: 65-99 1-Czc-120679:12 LIPID PANEL (68014) Comments: PATIENT WAS FASTINGPERFORMED BY: [facility] [id number] LDL/HDL Ratio 2.0 {ratio_units} (Normal) Range: 0.0-3.2 [...] Cholesterol, Total 192 mg/dL (Normal) Range: 100-199 5-Jpt-033925:12 CBC W/AUTO DIFF WBC Comments: PATIENT WAS FASTINGPERFORMED BY: [employer]en & Anais70 [facility] [id number] Information: [id number], [id number] (76471) Immature Grans (Abs) 0.0 {x10E3/uL} (Normal) Range: [...] (Normal) Range: 3.4-10.8 :57 HgA1C , Office (72313) HgA1C , Office 5.7 % (Normal) Range: 4.6 - 7.1 :57 Blood Glucose , Office (96261) Blood Glucose , 91 (Normal) Office : B12 434 pg/mL (Normal) Range: 211-911 28 : RAVELER 112 ug/dL (Normal) Range: 72-166 28 Comments: Detection Limit = 5Performed at: [facility] [address] [id number] Director: Heladio Schaffer MD, Phone: [phone] : VITD 37.9 mg/mL (Normal) Comments: Vitamin D 25(OH) Status RangeDeficiency <20 ng/mL (50nmol/L)Insuffciency 20 - 30 ng/mL (50 - 75 nmol/L)Sufficiency 30 - 100 ng/mL (75 - 250 28 nmol/L)Toxicity >100 ng/mL (>250 nmol/L) 0-Dwg-895992:22 Microscopic Examination Comments: PATIENT WAS FASTINGPERFORMED BY: DekkoCooper University HospitalLvbmiq0998 [facility] [id number] Bacteria Few (Normal) Mucus Threads Present (Normal) Crystal Type Calcium Oxalate (Normal) Crystals Present (Abnormal) Epithelial Cells (non renal) 0-10 {/hpf} (Normal) Range: 0 - 10 RBC 3-10 {/hpf} (Abnormal) Range: 0 - 2 WBC 0-5 {/hpf} (Normal) Range: 0 - 5 :39 HgA1C , Office (41251) HgA1C , Office 5.7 % (Normal) Range: 4.6 - 7.1 :39 Blood Glucose , Office (54197) Blood Glucose , Office 106 (Normal) Comments: non fasting :02 CALCIFIDIOL (39328) VIT D 25 Comments: PATIENT WAS FASTINGPERFORMED BY: CYTIMMUNE SCIENCESStraith Hospital For Special Surgery6370 [facility] [id number] Vitamin D, 25-Hydroxy 29.8 ng/mL (Abnormal) Range: 30.0-100.0 Comments: Vitamin D deficiency has been defined by the [place] [facility] and an Endocrine Society practice guideline as alevel of serum 25-OH vitamin D less than 20 ng/mL (1,2).The Endocrine Society went on to further define vitamin Dinsufficiency as a level between 21 and 29 ng/mL (2).1. IOM ([place]). 2010. Dietary reference intakes for calcium and D. [place]: The National Academies Press.2. Shelby MF, Sergio [place], Anatoly MERCER, et al. Evaluation, treatment, and prevention of vitamin D deficiency: an Endocrine Society clinical practice guideline. JCEM. 2010; 96(7):1911-30. 4-Iop-715064:02 TSH (04774) Comments: PATIENT WAS FASTINGPERFORMED BY: [facility]6370 [facility] [id number] TSH 1.410 {uIU/mL} (Normal) Range: 0.450-4.500 :02 URINALYSIS, W/ MICRO (42459) Comments: PATIENT WAS FASTINGPERFORMED BY: [facility]6370 [facility] [id number] Microscopic Examination See below: (Normal) Nitrite, Urine Negative (Normal) Urobilinogen,Semi-Qn 0.2 mg/dL (Normal) Range: 0.0-1.9 Bilirubin Negative (Normal) Occult Blood 3+ (Abnormal) Ketones Negative (Normal) Glucose Negative (Normal) Protein 1+ (Abnormal) WBC Esterase 1+ (Abnormal) Appearance Clear (Normal) Urine-Color Yellow (Normal) pH 6.5 (Normal) Range: 5.0-7.5 Specific [place] 1.023 (Normal) Range: 1.005-1.030 :02 METABOLIC PANEL, COMPREHENSIVE Comments: PATIENT WAS FASTINGPERFORMED BY: [facility]6370 [facility] [id number] (10124) ALT (SGPT) 16 [iU]/L (Normal) Range: 0-32 [...] Glucose, Serum 88 mg/dL (Normal) Range: 65-99 6-Uow-472364:02 CBC WITH MANUAL DIFF Comments: PATIENT WAS FASTINGPERFORMED BY: LabCoCooper University HospitalCjqmii3586 [facility] [id number] Information: [id number] (94584) Immature Grans (Abs) 0.0 {x10E3/uL} (Normal) Range: [...] Range: 3.4-10.8 :11 Blood Glucose , Office (30383) Blood Glucose , Office 161 (Normal) Comments: nonfasting :11 HgA1C , Office (82903) HgA1C , Office 5.5 % (Normal) Range: 4.6 - 7.1 :46 Metabolic Panel, Comments: all copies to Dr. cruz Montero; PATIENT NOT FASTINGPERFORMED BY: LabStraith Hospital [facility] Special Surgery6370 [facility] [id number] Information: [id number],NURSE DRAW Comprehensive (41402) ALT (SGPT) 22 [iU]/L (Normal) Range: 0-32 [...] Glucose, Serum 114 mg/dL (Abnormal) Range: 65-99 :46 TSH (26571) Comments: PATIENT NOT FASTINGPERFORMED BY: LabCoCooper University HospitalDfvhvg5273 [facility] [id number] TSH 0.648 {uIU/mL} (Normal) Range: 0.450-4.500 :46 CBC (Auto) (78335) Comments: PATIENT NOT FASTINGPERFORMED BY: LabCoCooper University HospitalOqwrxr6463 [facility] [id number] Platelets 281 {x10E3/uL} (Normal) Range: 155-379 RDW [...] Range: 4.4-11.0 :49 Blood Glucose , Office (45635) Blood Glucose , Office 87 (Normal) 8-Umu-188140:49 HgA1C , Office (49619) HgA1C , Office 5.6 % (Normal) Range: 4.6 - 7.1 1-Vpp-624490:11 Urinalysis, Office (05024) UA - BILIRUBIN Negative (Normal) UA - BLOOD Non Hemolyzed Trace (Normal) UA - GLUCOSE Negative (Normal) UA - KETONES Negative mg/dL (Normal) UA - LEUKOCYTE ESTERASE Trace (Normal) UA - NITRITE Negative (Normal) UA - PH 7.0 (Normal) UA - PROTEIN Negative mg/dL (Normal) UA - SPECIFIC GRAVITY 1.020 (Normal) URINE UROBILINGN JAYDEN TIMED Normal mg/dL (Normal) 21-Dec-20129:57 Blood Glucose , Office (68382) Blood Glucose , Office 73 (Normal) 66-Ues-256802:27 CALCIUM, IONIZED (19863) Comments: PATIENT NOT FASTINGPERFORMED BY: TRUDY Dekko [facility] [id number] Information: [id number] Calcium, Ionized, Serum 6.1 mg/dL (Abnormal) Range: 4.5-5.6 58-Zto-166021:08 URINE RUBENS CULTURE-IDENTIFICATN Comments: PATIENT NOT FASTINGPERFORMED BY: Vionicin [place] [id number] Information: [id number] (05010) Result 1 CNSNSS (Normal) Comments: Coagulase negative [...] report Culture,Comprehe (Normal) nsive :45 Urinalysis, Office (49611) UA - BILIRUBIN Negative (Normal) UA - [...] COL Comments: PATIENT NOT FASTINGPERFORMED BY: [facility] Zuvyxx8090 [facility] [id number] Information: SRC:UR ADD [id number] COUNT (84855) Result 1 MUG (Normal) Comments: Mixed urogenital flora50,000-100,000 colony forming units per mL Urine Final report (Normal) Culture,Comprehensive :44 Urinalysis, Office (86332) UA - BILIRUBIN Negative (Normal) UA - BLOOD Hemolyzed Large (Normal) UA - GLUCOSE Negative (Normal) UA - KETONES Negative mg/dL (Normal) UA - LEUKOCYTE ESTERASE Trace (Normal) UA - NITRITE Negative (Normal) UA - PH 6.0 (Normal) UA - PROTEIN Negative mg/dL (Normal) UA - SPECIFIC GRAVITY 1.020 (Normal) URINE UROBILINGN JAYDEN TIMED Normal mg/dL (Normal) 96-Dps-69502:10 PARATHORMONE (68366) Comments: PATIENT NOT FASTINGPERFORMED BY: [facility] Iprooy4355 [facility] [id number] PTH, Intact 36 pg/mL (Normal) Range: 15-65 :10 CALCIUM, IONIZED (73552) Comments: PATIENT NOT FASTINGPERFORMED BY: LabCoCo[facility] University HospitalEcqozi9180 [facility] [id number] Information: [id number] Calcium, Ionized, Serum 6.3 mg/dL (Abnormal) Range: 4.5-5.6 9-Jow-798050:17 TSH (76317) Comments: PATIENT NOT FASTINGPERFORMED BY: [facility] Yzptuh5024 [facility] [id number] TSH 1.200 {uIU/mL} (Normal) Range: 0.450-4.500 6-Ouu-547470:17 Protein Electrophoresis, Comments: PATIENT NOT FASTINGPERFORMED BY: LabCoCooper University HospitalWziexb2054 [facility] [id number] Information: [id number] Serum (SPEP) (87632) Please note: SPRCS (Normal) Comments: Protein electrophoresis scan will follow via computer, mail, orcourier delivery. A/G Ratio 1.8 (Normal) Range: 0.7-2.0 Globulin, Total 2.4 g/dL (Normal) Range: 2.0-4.5 M-Nelson Not Observed g/dL (Normal) Gamma Globulin 0.7 g/dL (Normal) Range: 0.5-1.6 Beta Globulin 0.9 g/dL (Normal) Range: 0.6-1.3 Qhpts-4-Nligsovg 0.6 g/dL (Normal) Range: 0.4-1.2 Clqka-2-Ngwhkbvq 0.2 g/dL (Normal) Range: 0.1-0.4 Albumin 4.2 g/dL (Normal) Range: 3.2-5.6 Protein, Total, Serum 6.6 g/dL (Normal) Range: 6.0-8.5 :17 CALCIFEDIOL (73343) Comments: PATIENT NOT FASTINGPERFORMED BY: CYTIMMUNE SCIENCESStraith Hospital For Special Surgery6370 [facility] [id number] Vitamin D, 25-Hydroxy 35.7 ng/mL (Normal) Range: 30.0-100.0 Comments: Vitamin D deficiency has been defined by the [place] of[facility] and an Endocrine Society practice guideline as alevel of serum 25-OH vitamin D less than 20 ng/mL (1,2).The Endocrine Society went on to further define vitamin Dinsufficiency as a level between 21 and 29 ng/mL (2).1. IOM ([place]). 2010. Dietary reference intakes for calcium and D. [place]: The National Academies Press.2. Shelby MF, Sergio [place], Anatoly MERCER, et al. Evaluation, treatment, and prevention of vitamin D deficiency: an Endocrine Society clinical practice guideline. JCEM. 2010; 96(7):1911-30. :17 PHOSPHORUS (89090) Comments: PATIENT NOT FASTINGPERFORMED BY: CYTIMMUNE SCIENCESStraith Hospital For Special Surgery6370 [facility] [id number] Phosphorus, Serum 3.6 mg/dL (Normal) Range: 2.5-4.5 5-Pzc-392056:17 PARATHORMONE (33017) Comments: PATIENT NOT FASTINGPERFORMED BY: LabStraith Hospital For Special Surgery6370 [facility] [id number] PTH, Intact 51 pg/mL (Normal) Range: 15-65 9-Nkq-186430:10 Parathyroid Hormone-related Comments: PATIENT NOT FASTINGPERFORMED BY: [employer] Ngbp[address]zsvxokyd[address] [place] [address] [id number] Peptide (PTH-rP) (06349) PTHrP (PTH-Related Peptide) <0.74 pmol/L (Normal) Comments: Reference Range:All Ages: <2.0The PTHrP assay should not be used to exclude cancer orscreen tumor patients for humoral hypercalcemia ofmalignancy (HHM). The results should always be assessed inconjun ction with the patient's medical history, clinicalexamination, and other findings. If test results areclinically discordant, please contact the laboratory. 0-Dsc-429567:17 CALCIUM, IONIZED (78477) Comments: PATIENT NOT FASTINGPERFORMED BY: [facility]At[facility] [id number] Calcium, Ionized, Serum 6.2 mg/dL (Abnormal) Range: 4.5-5.6 7-Cdl-241552:10 URINE RUBENS CULTURE-IDENTIFICATN Comments: PATIENT NOT FASTINGPERFORMED BY: [facility] [id number] Information: [id number] (15745) Result 1 MUG (Normal) Comments: Mixed urogenital flora50,000-100,000 colony forming units per mL Urine Final report (Normal) Culture,Comprehensive 14-Nov-20129:36 Urinalysis, Office (24674) UA - BILIRUBIN Negative (Normal) UA - [...] Calcium, Serum 10.9 mg/dL Comments: PERFORMED BY: [facility] [id number] :14 (Abnormal) Range: 8.6-10.2 :14 CBC With Differential/Platelet Comments: PERFORMED BY: [facility] [id number] Immature Grans (Abs) 0.0 {x10E3/uL} (Normal) Range: [...] 3.77-5.28 WBC 6.1 {x10E3/uL} (Normal) Range: 4.0-10.5 0-Nvs-538085:14 Celiac Disease Comprehensive Comments: PERFORMED BY: LabCoCooper University HospitalJuqczd4742 [facility] [id number] Immunoglobulin A, Qn, 231 mg/dL (Normal) Range: [...] A1c 5.6 % (Normal) Comments: PERFORMED BY: [employer] [facility] GroupBreckinridge [facility] [id number] 0:14 Range: 4.8-5.6 Comments: . Increased risk for diabetes: 5.7 - 6.4 Diabetes: >6.4 Glycemic control for adults with diabetes: <7.0 PTH, Intact 48 pg/mL (Normal) Comments: PERFORMED BY: [facility] [id number] 0:14 Range: 15-65 :36 HEPATOBILLIARY IMG W/PHARM [...] period. The post CCK gallbladder ejection fraction kfsbqvygeclz91 minutes following Cholecystokinin administration was noted to [...] et al, Journal of Nuclear Medicine 32:1695, 1990). Signed:Sd Elmore M.D.September 20, 2012 at 10:16:57 PM [id number] Signed RB/RB If you are the referring physician and would like to consult with theradiologist who provided this interpretation, please contact Margoth Luna at [phone]. If this radiologist is unavailable, you will bedirected to another radiologist to assist. If you are a patient with a question regarding this report, pleasecontactyour referring physician directly. Professional Interpretation Provided By: [email or web address] here, Phone , These documents contain legally [...] on 09/20/122217 Sign by: Sd Elmore DO 29-Boc-62918:36 GALLBLADDER Radiology Report See Note (Normal) Comments: [...] Chan M.D.September 09, 2012 at 10:19:06 AM [phone] Signed GP/GP If you are the referring physician and would like to consult with theradiologist who provided this interpretation, please contact Margoth Medina at [phone]. I f this radiologist is unavailable, youwill be directed to another radiologist to assist. If you are a patient with a question regarding this report, pleasecontactyour referring physician directly. Profe ssional Interpretation Provided By: [facility], Phone , These documents contain legally protected [...] destructionofthese documents. Dictated on 09/09/12 0849 by Yeyo Chan MDscribed on 09/09 1115 by ITS IMPORTSign by Suleman Chan MD on 09/09/12 1116 Sign by: Suleman Chan MD 76-Bwi-262692:55 Amylase (89722) Comments: PATIENT NOT FASTINGPERFORMED BY: [facility] Xhmexj6697 [facility] [id number] Amylase, Serum 83 U/L (Normal) Range: 31-124 32-Pwk-435102:55 Lipase (79851) Comments: PATIENT NOT FASTINGPERFORMED BY: [facility] Kwslow8625 [facility] [id number] Lipase, Serum 49 U/L (Normal) Range: 0-59 19-Jqi-259610:55 Metabolic Panel, Comprehensive Comments: PATIENT NOT FASTINGPERFORMED BY: [facility] Dzljvl4694 [facility] [id number] (05909) ALT (SGPT) 27 [iU]/L (Normal) Range: 0-32 [...] Glucose, Serum 72 mg/dL (Normal) Range: 65-99 27-Ixt-768751:55 CBC with manual diff (34709) Comments: PATIENT NOT FASTINGPERFORMED BY: [facility] Zvtpdb5886 [facility] [id number] Immature Grans (Abs) 0.0 {x10E3/uL} (Normal) Range: [...] 3.77-5.28 WBC 5.8 {x10E3/uL} (Normal) Range: 4.0-10.5 69-Qsm-468151:24 URINE RUBENS CULTURE-IDENTIFICATN Comments: PATIENT NOT FASTINGPERFORMED BY: [facility] Wtsqbd9227 [facility] [id number] Information: SRC: URINE (72249) Result 1 MUG (Normal) Comments: Mixed urogenital flora1,000 Colonies/mL Urine Culture,Comprehensive Final report (Normal) 6-Aia-158005:49 URINE RUBENS CULTURE-JAYDEN COL Comments: PATIENT NOT FASTINGPERFORMED BY: [facility] Jrvfiw6204 [facility] [id number] Information: SRC:UR [id number] COUNT ([id number]) Result 2 ENTECC (Normal) Comments: Enterobacter cloacae [...] report (Normal) Culture,Comprehensi ve 22-Aug-20129:14 Urinalysis, Office (20536) UA - BILIRUBIN Negative (Normal) UA - BLOOD Negative (Normal) UA - GLUCOSE Negative (Normal) UA - KETONES Negative mg/dL (Normal) UA - LEUKOCYTE ESTERASE Small (Normal) UA - NITRITE Negative (Normal) UA - PH 6.0 (Normal) UA - PROTEIN Negative mg/dL (Normal) UA - SPECIFIC GRAVITY 1.015 (Normal) URINE UROBILINGN JAYDEN TIMED Normal mg/dL (Normal) 18-Fcg-745350:56 Urinalysis, Office (81169) UA - BILIRUBIN Negative (Normal) UA - BLOOD Negative (Normal) UA - GLUCOSE Negative (Normal) UA - KETONES Negative mg/dL (Normal) UA - LEUKOCYTE ESTERASE Trace (Normal) UA - NITRITE Negative (Normal) UA - PH 7.0 (Normal) UA - PROTEIN Negative mg/dL (Normal) UA - SPECIFIC GRAVITY 1.025 (Normal) URINE UROBILINGN JAYDEN TIMED Normal mg/dL (Normal) :13 CALCIFEDIOL (30929) Comments: PATIENT WAS FASTINGPERFORMED BY: Dekko Raqebp5956 [facility] [id number] Vitamin D, 25-Hydroxy 32.6 ng/mL (Normal) Range: 30.0-100.0 Comments: Vitamin D deficiency has been defined by the [place] [facility] and an Endocrine Society practice guideline as alevel of serum 25-OH vitamin D less than 20 ng/mL (1,2).The Endocrine Society went on to further define vitamin Dinsufficiency as a level between 21 and 29 ng/mL (2).1. IOM ([place] of Medicine). 2010. Dietary reference intakes for calcium and D. [place]: The National Academies Press.2. Shelby MF, Sergio NC, Anatoly MERCER, et al. Evaluation, treatment, and prevention of vitamin D deficiency: an Endocrine Society clinical practice guideline. JCEM. 2010; 96(7):1911-30. :13 TSH (50748) Comments: PATIENT WAS FASTINGPERFORMED BY: Dekko Duowgz4222 [facility] [id number] TSH 1.590 {uIU/mL} (Normal) Range: 0.450-4.500 :13 MICROALBUMIN: CREATININE RATIO Comments: PATIENT WAS FASTINGPERFORMED BY: Dekko Bcwtsh8280 [facility] [id number] ([id number]) AND (18226) Creatinine, Urine 69.0 mg/dL (Normal) Range: 15.0-278.0 Microalb/Creat Ratio 9.3 {mg/g_creat} (Normal) Range: 0.0-30.0 Microalbumin, Urine 6.4 ug/mL (Normal) Range: 0.0-17.0 :13 METABOLIC PANEL, COMPREHENSIVE Comments: PATIENT WAS FASTINGPERFORMED BY: [employer]70 [facility] [id number] (88904) ALT (SGPT) 25 [iU]/L (Normal) Range: 0-32 [...] mg/dL (Normal) Range: 65-99 :13 LIPID PANEL (61261) Comments: PATIENT WAS FASTINGPERFORMED BY: Dekko Zjlwmg3982 [facility] [id number] LDL/HDL Ratio 1.0 {ratio_units} (Normal) Range: 0.0-3.2 [...] MANUAL DIFF Comments: PATIENT WAS FASTINGPERFORMED BY: [facility] [id number] Information: [id number] (56041) Immature Grans (Abs) 0.0 {x10E3/uL} (Normal) Range: [...] {x10E3/uL} (Normal) Range: 4.0-10.5 :05 Urinalysis, Office (23602) UA - BILIRUBIN Negative (Normal) UA - [...] Normal mg/dL (Normal) :02 HgA1C , Office (25292) HgA1C , Office 5.4 % (Normal) Range: 4.6 - 7.1 :02 Blood Glucose , Office (48302) Blood Glucose , Office 136 (Normal) Comments: has eaten 79-Aee-809105:00 Blood Glucose , Office (01288) Blood Glucose , Office 96 (Normal) 20-Dvk-598905:00 HgA1C , Office (99541) HgA1C , Office 5.3 % (Normal) Range: 4.6 - 7.1 27-Bxm-744938:00 Urinalysis, Office (80524) UA - BILIRUBIN Negative (Normal) UA - [...] CULTURE-JAYDEN COL Comments: PATIENT NOT FASTINGPERFORMED BY: [facility] Udswof7716 [facility] [id number] Information: SRC:UR [id number] COUNT ([id number]) Result 1 ECV (Normal) Comments: Escherichia coli, [...] S Urine Final report (Normal) Culture,Comprehensiv e 63-Mlh-05091:49 Urinalysis, Office (28501) UA - BILIRUBIN Negative (Normal) UA - BLOOD Non Hemolyzed Moderate (Normal) UA - GLUCOSE Negative (Normal) UA - KETONES Negative mg/dL (Normal) UA - LEUKOCYTE ESTERASE Small (Normal) UA - NITRITE Negative (Normal) UA - PH 5.0 (Normal) Comments: 5.5 UA - PROTEIN Negative mg/dL (Normal) UA - SPECIFIC GRAVITY 1.025 (Normal) Comments: 1.030 URINE UROBILINGN JAYDEN TIMED Normal mg/dL (Normal) 71-Btu-426361:15 Creatine Kinase Total (00813) Comments: PATIENT NOT FASTINGPERFORMED BY: CB [facility] Meyqpc6713 [address] [facility] [place] [id number] Creatine Kinase,Total,Serum 145 U/L (Normal) Range: 24-173 17-Wbb-046238:15 Sed Rate Erythrocyte (78347) Comments: PATIENT NOT FASTINGPERFORMED BY: CB [facility] Iwifgn4088 [address] [facility] [place] [id number] Sedimentation Rate-Westergren 2 mm/h (Normal) Range: 0-40 90-Dmt-596378:15 CALCIFEDIOL (25840) Comments: PATIENT NOT FASTINGPERFORMED BY: CB [facility] Auvyvp1612 [address] [id number] Information: [id number] Vitamin D, 25-Hydroxy 40.9 ng/mL (Normal) Range: 30.0-100.0 Comments: Vitamin D deficiency has been defined by the [place] of[place]icine and an Endocrine Society practice guideline as alevel of serum 25-OH vitamin D less than 20 ng/mL (1,2).The Endocrine Society went on to further define vitamin Dinsufficiency as a level between 21 and 29 ng/mL (2).1. IOM ([place] [employer]). 2010. Dietary reference intakes for calcium and D. [place]: The National Academies Press.2. Shelby MF, Sergio [place], Anatoly MERCER, et al. Evaluation, treatment, and prevention of vitamin D deficiency: an Endocrine Society clinical practice guideline. JCEM. 2010; 96(7):1911-30. 79-Pzi-284191:15 PARATHORMONE (47816) Comments: PATIENT NOT FASTINGPERFORMED BY: [facility] HospitalQaudfn8496 [facility] [id number] PTH, Intact 40 pg/mL (Normal) Range: 15-65 70-Sfb-490923:01 BREAST UNILATERAL Radiology Report See Note (Normal) [...] Chan M.D.November 30, 2011 at 12:49:05 PM [id number] Signed GP/GP If you are the referring physician and would like to consult with Digital FueladiolHullabalui who provided this interpretation, please contact Margoth Medina at [phone]. If this radiologist is unavailable, youwill be directed to another radiologist to assist. If you are a patien t with a question regarding this report, pleasecontactyour referring physician directly. Professional Interpretation Provided By: Nicolasa Phone , Dictated on 1044 by Fern Chan MDribed on 11/30/11 1254 by ITS IMPORTSign by Suleman Chan MD on 11/30/11 1255 Sign by: Suleman Chan MD 99-Lgz-78107:45 BILAT SCRN DIGITAL & CAD Radiology Report [...] M.D.November 25, 2011 at 9:44:08 AM ED [id number] Signed GP/GP If you are the referring physician and would like to consult with theradiologist who provided this interpretation, please contact Margoth Medina at . If this radiologist is unavailable, youwill be directed to another radiologist to assist. If you are a patient with a question regarding this report, pleasecontactyour referring physician dire ctly. Professional Interpretation Provided By: [employer], Phone , Dictated on 11/25/11 09 by Shireen Chan MDranscribed on 11/25/11 1136 by ITS IMPORTSign by Suleman Tadeo MD on 11/25/11 1137 Sign by: Suleman Chan MD 98-Ixx-65876:44 DEXA BONE DENSITY STUDY (HP) Radiology Report [...] M.D.November 25, 2011 at 11:00:04 AM ED [id number] Signed GP/GP If you are the referring physician and would like to consult with theradiologist who provided this interpretation, please contact Kyara Medina. at . If this radiologist is unavailable, youwill be directed to another radiologist to assist. If you are a patient with a question regarding this report, pleasecontactyour referring physician [facility]. Professional Interpretation Provided By: [employer], Phone , Dictated on 11/25/11 0845 by Rocio FLORES,Fernribed on 11/25/11 1115 by ITS IMPORTSign by Navi almodovar MD,Suleman on 11/25/11 1116 Sign by: Suleman Chan MD 98-Fcc-84933:38 Microscopic Examination Comments: PATIENT WAS FASTINGPERFORMED BY: Recovr Pnocus8058 [facility] [id number] Bacteria Few (Normal) Mucus Threads Present (Normal) Epithelial Cells (non renal) 0-10 {/hpf} (Normal) Range: 0 - 10 RBC 0-3 {/hpf} (Normal) Range: 0 - 3 WBC 0-5 {/hpf} (Normal) Range: 0 - 5 :38 Request Problem Comments: PATIENT WAS FASTINGPERFORMED BY: [employer] [employer] Lwzaze3053 [facility] [id number] :[id number] TSH (51166) Comments: PATIENT WAS FASTINGPERFORMED BY: [employer] [employer] Dcapro7419 [facility] [id number] TSH 1.010 {uIU/mL} (Normal) Range: 0.450-4.500 :38 URINALYSIS, W/ MICRO (69408) Comments: PATIENT WAS FASTINGPERFORMED BY: [employer] Budizv0814 [facility] [id number] Microscopic Examination See below: (Normal) Microscopic Examination MICRON (Normal) Comments: Microscopic follows if indicated. Nitrite, Urine Negative (Normal) Urobilinogen,Semi-Qn 0.2 mg/dL (Normal) Range: 0.0-1.9 Bilirubin Negative (Normal) Occult Blood Negative (Normal) Ketones Negative (Normal) Glucose Negative (Normal) Protein Negative (Normal) WBC Esterase Negative (Normal) Appearance Cloudy (Abnormal) Urine-Color Yellow (Normal) pH 7.5 (Normal) Range: 5.0-7.5 Specific [place] 1.019 (Normal) Range: 1.005-1.030 :38 MICROALBUMIN: CREATININE RATIO Comments: PATIENT WAS FASTINGPERFORMED BY: [employer] [facility] [id number] (33300) AND (61406) :38 METABOLIC PANEL, COMPREHENSIVE Comments: PATIENT WAS FASTINGPERFORMED BY: [employer] Anais70 [facility] [id number] (98112) ALT (SGPT) 25 [iU]/L (Normal) Range: 0-40 [...] mg/dL (Normal) Range: 65-99 :38 LIPID PANEL (61457) Comments: PATIENT WAS FASTINGPERFORMED BY: [employer]ais70 [facility] [id number] LDL/HDL Ratio 1.0 {ratio_units} (Normal) Range: 0.0-3.2 LDL Cholesterol Calc 66 mg/dL (Normal) Range: 0-99 VLDL Cholesterol Tab 38 mg/dL (Normal) Range: 5-40 HDL Cholesterol 65 mg/dL (Normal) Comments: According to ATP-III Guidelines, HDL-C >59 mg/dL is considered anegative risk factor for CHD. Triglycerides 191 mg/dL (Abnormal) Range: 0-149 Cholesterol, Total 169 mg/dL (Normal) Range: 100-199 :38 CBC WITH MANUAL DIFF (86041) Comments: PATIENT WAS FASTINGPERFORMED BY: [employer] [facility] Ksbzjp0234 [facility] [id number] Immature Grans (Abs) 0.0 {x10E3/uL} (Normal) Range: [...] (Normal) Range: 4.0-10.5 :23 HgA1C , Office (56149) HgA1C , Office 5.7 % (Normal) Range: 4.6 - 7.1 :23 Blood Glucose , Office (77747) Blood Glucose , Office 93 (Normal) Plan [...] Indication: Fatty liver Cervical pain : Reviewed Agent Based Modeler Letter- in PT Indication: Cervical pain Breast [...] daytime sleepiness Excessive daytime sleepiness : Reviewed Agent Based Modeler Letter Indication: Excessive daytime sleepiness Current nonsmoker [...] - do hiac- sees lul in october due in btw nad sees him for [...] movement disorder Bruising : Follow up with psychological stress evaluator Indication: Bruising Frequent falls : Eprescribed prescriptions [...] : Follow up in 1 week with [facility] on a Wednesday Indication: Diabetic neuropathy Urgency [...] in 3 months Indication: Hypercalcemia Planned Observations CBC & PLATELETS (AUTO) (86394)Indication: Hypertension, benign On: 20-Iov-900721:13 Request TSH (04658)Indication: Hypothyroidism On: :08 Request URINALYSIS, W/ MICRO (29737)Indication: Type II diabetes mellitus, well controlled On: :08 Request MICROALBUMIN: CREATININE RATIO (70238) AND (85359)Indication: Type II diabetes mellitus, well controlled On: :08 Request METABOLIC PANEL, COMPREHENSIVE (28096)Indication: Type II diabetes mellitus, well controlled On: :08 Request LIPOPROTEIN, BLD, BY NMR (89923)Indication: Type II diabetes mellitus, well controlled On: :08 Request CBC W/AUTO DIFF WBC (76122)Indication: Type II diabetes mellitus, well controlled On: :08 Request Influenza A&B Viral Culture (26900)Indication: Chills On: 3-Vpr-077581:08 Request Rapid Flu (80377 x 2)Indication: Cough On: 6-Uiy-574415:07 Request ZECFP-NFGPKYLICKK-BNTRP (42189)Indication: Fatty liver On: 6-Kft-717352:14 Request Anti-TPO Antibody (54942)Indication: Hypothyroidism On: 1-Afi-956442:11 Request T4, FREE (THYROXINE) (07498)Indication: Hypothyroidism On: 7-Tyf-339349:11 Request T3, FREE (TRIDOTHYRONINE) (40423)Indication: Hypothyroidism On: 7-Xpo-939007:11 Request TSH (26696)Indication: Hypothyroidism On: :11 Request URINALYSIS, W/ MICRO (73032)Indication: Hypertension, benign On: :11 Request MICROALBUMIN: CREATININE RATIO (24293) AND (17317)Indication: Diabetes mellitus with diabetic neuropathy On: :11 Request METABOLIC PANEL, COMPREHENSIVE (67532)Indication: Hypertension, benign On: 0-Epq-972197:11 Request CBC W/AUTO DIFF WBC (32789)Indication: Hypertension, benign On: 7-Ejf-186929:11 Request LIPID PANEL (75730)Indication: Hyperlipidemia, unspecified On: 3-Fps-740279:11 Request CALCIFIDIOL (56638) VIT D 25Indication: Vitamin D deficiency disease On: 4-Mlg-901596:11 Request CALCIFIDIOL (56065) VIT D 25Indication: Vitamin D deficiency disease On: 72-Bmb-515623:12 Request URINALYSIS, W/ MICRO (85228)Indication: Diabetes mellitus with diabetic neuropathy On: 94-Uru-169212:11 Request MICROALBUMIN: CREATININE RATIO (23775) AND (75438)Indication: Diabetes mellitus with diabetic neuropathy On: 38-Xxj-183777:11 Request METABOLIC PANEL, COMPREHENSIVE (85530)Indication: Diabetes mellitus with diabetic neuropathy On: 71-Ptm-227721:11 Request CBC W/AUTO DIFF WBC (49962)Indication: Diabetes mellitus with diabetic neuropathy On: 14-Fwh-095660:11 Request LIPID PANEL (07246)Indication: Hyperlipidemia, unspecified On: 85-Hjz-553461:11 Request TSH (09987)Indication: Hypothyroidism On: 18-Ygv-225094:11 Request Thin Prep Pap (58696)Indication: Encounter for screening for cervical cancer (Renamed from Encounter for screening for malignant neoplasm of cervix) On: 88-Bon-00989:58 Request HgA1C , Office (28511)Indication: Diabetes mellitus with diabetic neuropathy On: 24-Cji-05955:30 Request HPV automatic (05173)Indication: Screening for HPV (human papillomavirus) (Renamed from Encounter for screening for human papillomavirus (HPV)) On: 46-Dey-21223:25 Request LIPID PANEL (16324)Indication: Hypertension, benign On: 73-Htz-213536:19 Request Comments: in three months (approximately) copy to Dr. freire METABOLIC PANEL, COMPREHENSIVE (58230)Indication: Hypertension, benign On: 41-Qam-196919:19 Request T3, TOTAL (TRIDOTHYRONINE) (34703)Indication: Hypothyroidism On: 2-Vbr-371611:08 Request T4, TOTAL (37078)Indication: Hypothyroidism On: 1-Smc-583328:08 Request TSH (THYROID STIMULATING HORMONE) (70262)Indication: Hypothyroidism On: :58 Request PARATHORMONE (75723)Indication: Hypercalcemia On: :58 Request CALCIUM, IONIZED (71732)Indication: Hypercalcemia On: :58 Request Metabolic Panel, Basic (00170)Indication: Diabetes mellitus with diabetic neuropathy On: 3-Mvi-996536:44 Request Comments: recheck in 2-3 weeks on losartan CALCIFIDIOL (96804) VIT D 25Indication: Vitamin D deficiency disease On: :33 Request TSH (33958)Indication: Hypothyroidism On: :32 Request MICROALBUMIN: CREATININE RATIO (28754) AND (03488)Indication: Diabetes mellitus with diabetic neuropathy On: :32 Request METABOLIC PANEL, COMPREHENSIVE (80289)Indication: Diabetes mellitus with diabetic neuropathy On: :32 Request LIPID PANEL (76375)Indication: Diabetes mellitus with diabetic neuropathy On: :32 Request CBC with auto diff (62437)Indication: Diabetes mellitus with diabetic neuropathy On: 3-Xnr-178476:32 Request PARATHORMONE (34929)Indication: Abnormal blood findings On: 3-Qvu-053485:18 Request URINE RUBENS CULTURE-JAYDEN COL COUNT (89364)Indication: Bacteria in urine On: 0-Wke-219845:18 Request LIPID PANEL (85268)Indication: Diabetes mellitus with diabetic neuropathy On: 24-May-20138:23 Request CBC WITH MANUAL DIFF (59919)Indication: Melena On: 8-Bhs-199088:25 Request PARATHORMONE (11426)Indication: Hypercalcemia On: 7-Mzy-778195:21 Request CALCIUM, IONIZED (42114)Indication: Hypercalcemia On: 7-Blk-905638:21 Request CALCIFIDIOL (01530) VIT D 25Indication: Vitamin D deficiency disease On: 8-Bbo-265912:20 Request MICROALBUMIN: CREATININE RATIO (15729) AND (33334)Indication: Diabetes mellitus type II, controlled On: :19 Request METABOLIC PANEL, COMPREHENSIVE (21956)Indication: Diabetes mellitus type II, controlled On: :19 Request LIPID PANEL (43396)Indication: Diabetes mellitus type II, controlled On: 0-Igj-337241:19 Request CBC WITH MANUAL DIFF (31958)Indication: Diabetes mellitus type II, controlled On: 4-Jmp-881586:19 Request HgA1C , Office (28211)Indication: Diabetes mellitus type II, controlled On: 5-Esk-970658:35 Request Comments: 5.6 Hemoglobin Glyclated (HGB A1C) (83198)Indication: Diabetes mellitus type II, controlled On: :35 Request CBC (Auto) (33279)Indication: Abdominal pain, acute, right upper quadrant On: :33 Request PARATHORMONE (85496)Indication: Hypercalcemia On: :33 Request Calcium Serum (41684)Indication: Hypercalcemia On: :33 Request FLURESCNT ANTIB SCRN EA (62233) celiac profileIndication: Abdominal pain, acute, right upper quadrant On: :32 Request IMMUNOASSAY, ANALYTE (NON-INFECT) (96180) celiac profileIndication: Abdominal pain, acute, right upper quadrant On: 17-Oct-20129:32 Request IGA/IGD/IGG/IGM-EACH (17409) celiac profileIndication: Abdominal pain, acute, right upper quadrant On: 17-Oct-20129:32 Request CELIAC DISEASE AB 716930 (45594)Indication: Abdominal pain On: 21-Aic-616343:17 Request Celiac Disease Comphrehensive Profile (86699)Indication: Abdominal pain On: 78-Nrh-604180:17 Request Troponin I (13314)Indication: Chest pain On: 72-Mnd-087351:31 Request CPK MB FRACTION (02853)Indication: Chest pain On: 43-Uyb-005541:31 Request CREATINE KINASE TOTAL (28508)Indication: Chest pain On: 48-Skl-851022:31 Request TSH (THYROID STIMULATING HORMONE) (72200)Indication: Panic attack On: 04-Xsm-119995:27 Request CALCIFEDIOL (86823)Indication: Vitamin D deficiency disease On: 21-Uda-977611:18 Request TSH (48744)Indication: Hypothyroidism On: 37-Mmd-702346:16 Request MICROALBUMIN: CREATININE RATIO (64868) AND (88226)Indication: Diabetes mellitus type II, controlled On: 80-Hiu-597932:16 Request METABOLIC PANEL, COMPREHENSIVE (28295)Indication: Diabetes mellitus type II, controlled On: 99-Oof-081476:16 Request LIPID PANEL (97127)Indication: Diabetes mellitus type II, controlled On: 51-Fet-206469:16 Request CBC WITH MANUAL DIFF (93455)Indication: Diabetes mellitus type II, controlled On: 27-Iet-739312:16 Request URINE RUBENS CULTURE-IDENTIFICATN (84841)Indication: Urgency of urination On: 21-Tjh-867365:14 Request CBC with manual diff (99662)Indication: Fall from high place, initial encounter On: :51 Request Comments: drawn in office Calcium Serum (02859)Indication: Fall from high place, initial encounter On: :51 Request Comments: drawn in office Metabolic Panel, Comprehensive (86673)Indication: Fall from high place, initial encounter On: :51 Request Comments: drawn in office TSH (62302)Indication: Fall from high place, initial encounter On: 22-Jan-20129:50 Request Comments: drawn in office, sent to hospital Calcium Serum (71980)Indication: Hypercalcemia On: 43-Dte-285386:42 Request Planned Procedures ELECTROCARDIOGRAM, COMPLETE (ECG) On: 27-Apr-2018 Intent (33405)By: Octavia Nichols DO Comments: nsr no acute chg -- Octavia HOGUE Flu Vaccine (Quadrivalent) 86839Wt: On: 18-Jan-2018 Intent Octavia Nichols DO, DO, Comments: Lot #[id number]-9/30/19Site-Rt dltd, IMDose prefilled syringegiven by: Faye GARCIAVIS reviewed and ABN signed Octavia NCZO-XX-TWKJ BEHAVIORAL COUNSELING FOR On: 18-Jan-2018 Intent OBESITY, 15 MINUTES (G0447)By: Octavia Nichols DO, DO, Kathleen Radiology - Wrist - RightBy: Rigo On: 12-Jan-2018 Intent Aylin GRANT Radiology - Wrist - LeftBy: Cibeth RN TRANSITIONAL, On: 12-Jan-2018 Intent Antonella DIAGNOSTIC BILATERAL MAMMOGRAM On: 10-Dec-2017 Intent (64477)By: Octavia Nichols DO, DO, Kathleen Ultrasound - Breast - RightBy: On: 07-Dec-2017 Intent Hiram Karen ELECTROCARDIOGRAM, COMPLETE (ECG) On: 25-Oct-2017 Intent (91249)By: Octavia Nichols DO Comments: sinus frankie- poor Rwave progression/ no acute chg DO, Octavia DRAIN/INJECT SMALL JOINT OR BURSA On: 07-Oct-2017 Intent ()By: Octavia Nichols DO, DO, Octavia Kenalog Injection, 10 mgm (J3301)By: On: 07-Oct-2017 [...] Intent Octavia Nichols DO, DO, Kathleen Spirometry (79680)By: Simone HOGUE, On: 26-Aug-2017 Intent Octavia Dennison DO Comments: normal -- will not do inhaler at this time for cough Echo CompleteBy: Octavia Nichols DO On: 02-Jul-2017 Intent Octavia Nichols DO US DOPPLER CAROTID BILATERAL On: 02-Jul-2017 Intent (71115)By: Octavia Nichols DO, DO, Kathleen Spirometry (71142)By: Simone HOGUE, On: 20-May-2017 Intent Octavia Dennison DO Comments: normal Wax Currettes (95769)By: Munira RATLIFF, On: 12-May-2017 Intent Loli Ear Irrigation (91002)By: Munira RATLIFF, On: 12-May-2017 Intent Loli TDAP VACCINE >7 IM (94363)By: Simone On: 23-Mar-2017 Intent Octavia HOGUE DO, Kathleen Comments: 5H2H2 lot and exp 04/29/19 lt arm ELECTROCARDIOGRAM, COMPLETE (ECG) On: 23-Mar-2017 Intent (05931)By: Octavia Nichols DO Comments: nsr no acute cgh Octavia HOGUE Flu Vaccine (Quadrivalent) 94363Xv: On: 13-Jan-2017 Intent Octavia Nichols DO, DO, Comments: Lot:[id number]:11/01/17Dose:0.5mLRoute:IMSite:L DltdGiven By:DAVID signed Octavia PNEUM VAC ADLT/IMUMNOSPR, SBC/INTRM On: 28-Dec-2016 Intent (29522)By: Octavia Nichols DO Comments: lot: [id number]: 12/18/17ite/route: L del/IMamt: 0.5mLVIS signed when applicableChelseaJAY JAY DO, Kathleen XVEL-GU-GYCE BEHAVIORAL COUNSELING FOR On: 28-Dec-2016 Intent OBESITY, 15 MINUTES (G0447)By: Octavia Nichols DO, DO, Kathleen SCREENING DIGITAL TOMOSYNTHESIS OF On: 28-Dec-2016 Intent BREAST (25174)By: Octavia Nichols DO, DO, Kathleen Radiology - Ankle - LeftBy: Rigo GRANT, On: 02-Dec-2016 Intent Antonella Wax CurettesBy: Octavia Nichols DO On: 26-Oct-2016 Intent Octavia Nichols DO Ear Irrigation (33400)By: Simone HOGUE, On: 26-Oct-2016 Intent Octavia Dennison DO Comments: R ear gooey lots of wax removed currette used- canals red but not inflamed when done so told her to call if pain develpied DRAIN/INJECT SMALL JOINT OR BURSA On: 10-Jun-2016 Intent ()By: Octavia Nichols DO, DO, Kathleen X-RAY OF HAND, THREE VIEWS (96837)By: On: 08-Jun-2016 Intent Octavia Nichols DO, DO, Comments: attention base of thumb Octavia X-RAY OF HUMERUS, TWO VIEWS (16675)By: On: 20-Apr-2016 Intent Octavia Nichols DO, DO, Octavia X-RAY OF ELBOW, THREE VIEWS (90145)By: On: 20-Apr-2016 Intent Simone DO, Octavia Nichols DO, Octavia Flu Vaccine (Quadrivalent) 53444Ah: On: 11-Mar-2016 Intent Loli Lombardo LPN CT - Brain/Head (Without Contrast)By: On: 03-Jan-2016 Intent Aylin Sierra CNP Comments: Call results to ie today if before 3pm if not call to [facility] strategic solutions consultant KF Solu -Medrol Injection, 125 mg On: 01-Nov-2015 Intent (J2930)By: Aylin Sierra CNP Comments: Lot:[id number]:05/2018Dose:125mgRoute:imSite:r hipGiven By:DAVID signed ATTENDED SLEEP STUDY (27059)By: Rigo On: 25-Oct-2015 Aylin Borden CNP Comments: schedule with Dr. Letty Jules CurettesBy: Rosa Isela Mcgarry MD On: 30-Sep-2015 Intent Ear Irrigation (86796)By: Micki FLORES, On: 30-Sep-2015 Intent Rosa Isela Arias Comments: IrrigationSite- L earAmount/Color/Quality - minimal Unable to get all cerumen out at this point due to the cerumen being too hard and patient was getting dizzy. She will go home and use Debrox and then come back to have sprayed agai Pap Smear, Medicare (Q0091)By: Micki On: 30-Sep-2015 Rosa Isela Borden MD BILATERAL MAMMOGRAMS (85519)By: On: 30-Sep-2015 Intent Rosa Isela Mcgarry MD Comments: due November 2015 DEXA SCAN AXIAL SKELETON ([id number])By: On: 30-Sep-2015 Intent Rosa Isela Mcgarry MD Ultrasound - Abdomen CompleteBy: Adelina On: 23-May-2015 Santy Borden MD Radiology - Hip - RightBy: Adelina FLORES, On: 23-May-2015 Intent Santy Flu Vaccine (Quadrivalent) [id number]: On: 26-Feb-2015 Intent Rosa Isela Mcgarry MD Comments: Lot:[id number]/14/15Dose:0.5mLRoute:IMSite:L DltdGiven By:JLUKE signed GASTRIC EMPTYING STUDY ([id number])By: On: 07-Dec-2014 Intent Rosa Isela Mcgarry MD Ultrasound - ThyroidBy: Micki FLORES, On: 20-Nov-2014 Intent Rosa Isela Arias Ultrasound - ThyroidBy: Micki FLORES, On: 21-Aug-2014 Intent Rosa Isela Arias MAMMOGRAM, SCREENING, BOTH BREAST On: 22-May-2014 Intent ([id number])By: Rosa Isela Mcgarry MD GASTRIC EMPTYING STUDY ([id number])By: On: 22-May-2014 Intent Rosa Isela Mcgarry MD Prevnar 13 ([id number])By: Micki FLORES, On: 22-May-2014 Intent Rosa Isela Arias EKG ([id number])By: Rosa Isela Mcgarry MD On: 22-May-2014 Intent Comments: see scanned document of test done to see results reviewed today with patient Wax CurettesBy: Rosa Isela Mcgarry MD On: 30-Apr-2014 Intent Ear Irrigation ([id number])By: Micki FLORES, On: 30-Apr-2014 Intent Rosa Isela Arias IMMUNIZ ADMNIN, 1 VAC, SNGL/COMBO On: 21-Feb-2014 Intent ([id number])By: Rosa Isela Mcgarry MD Comments: Lot #[id number]-L dltd, IMDose prefilled syringegiven by:LAY Parra and ABN signed FLU VAC, SPLIT, >3 YEARS, INTRAMUSC On: 21-Feb-2014 Intent ([id number])By: Rosa Isela Mcgarry MD Eprescribed prescriptions ([id number])By: On: 19-Sep-2013 Intent Rosa Isela Mcgarry MD Radiology - Knee - Right - Weight On: 07-Sep-2013 Intent BearingBy: Rosa Isela Mcgarry MD Eprescribed prescriptions ([id number])By: On: 07-Sep-2013 Intent Rosa Isela Mcgarry MD Eprescribed prescriptions ([id number])By: On: 24-May-2013 Intent Jackie Mcgee Eprescribed prescriptions ([id number])By: On: 21-Apr-2013 Intent Rosa Isela Mcgarry MD Eprescribed prescriptions ([id number])By: On: 11-Apr-2013 Intent Jackie Mcgee EKG ([id number])By: Rosa Isela Mcgarry MD On: 23-Mar-2013 Intent Comments: see scanned document of test done to see results reviewed today with patient Eprescribed prescriptions ([id number])By: On: 23-Mar-2013 Intent Gabriella Velez LPN FLU VAC, SPLIT, >3 YEARS, INTRAMUSC On: 21-Feb-2013 Intent ([id number])By: Gabriella Velez LPN Comments: lot [id number] 2014site/route L magi, IMamt 0.5mlVIS and ABN signed when applicableEast [place], [facility] ANNUAL DEPRESSION SCREENING, 15 On: 21-Feb-2013 Intent MINUTES ([id number])By: Rosa Isela Mcgarry MD Nuclear Medicine - Gastric Emptying On: 21-Feb-2013 Intent StudyBy: Rosa Isela Mcgarry MD ADMINISTRATION OF INFLUENZA VIRUS On: 21-Feb-2013 Intent VACCINE ([id number])By: Gabriella Velez LPN Comments: Lot #[id number]-L dltd, IMDose prefilled syringegiven by:MLong, LPNVIS and ABN signed Eprescribed prescriptions ([id number])By: On: 21-Feb-2013 Intent Gabriella Velez LPN L Eprescribed prescriptions ([id number])By: On: 28-Nov-2012 Intent Aylin Sierra CNP SPECIMEN HANDLING/TRANSPORT ([id number])By: On: 28-Nov-2012 Intent Mary Sarmiento LPN Nuclear Medicine - HIDA w/CPKBy: On: 16-Sep-2012 Intent Jackie Mcgee ELECTROCARDIOGRAM, COMPLETE (ECG) On: 09-Sep-2012 Intent ([id number])By: Aylin Sierra CNP Comments: sinus thythm Nuclear Medicine - HIDA w/CPKBy: On: 06-Sep-2012 Intent Rosa Isela Mcgarry MD Comments: if us negative Ultrasound - GallbladderBy: Micki On: 06-Sep-2012 Intent Rosa Isela FLORES Eprescribed prescriptions ([id number])By: On: 06-Sep-2012 Intent Gabriella Velez LPN Eprescribed prescriptions ([id number])By: On: 22-Aug-2012 Intent Aylin Sierra CNP ELECTROCARDIOGRAM, COMPLETE (ECG) On: 18-Jul-2012 Intent ([id number])By: Gabriella Velez LPN Comments: see scanned document of test done to see results reviewed today with patient Nuclear Stress Test/Stress On: 18-Jul-2012 Intent SPECT/TreadmillBy: Rosa Isela Mcgarry MD Eprescribed prescriptions ([id number])By: On: 18-Jul-2012 Intent Gabriella Velez LPN Eprescribed prescriptions ([id number])By: On: 04-Mar-2012 Intent Mary Sarmiento LPN SPECIMEN HANDLING/TRANSPORT ([id number])By: On: 04-Mar-2012 Intent Mary Sarmiento LPN Holter Monitor 24 hrsBy: Micki FLORES, On: 25-Jan-2012 Intent Rosa Isela Arias Echo CompleteBy: Rosa Isela Mcgarry MD On: 25-Jan-[address] - Brain/HeadBy: Aylin Sierra CNP On: 22-Jan-2012 Intent Comments: will ask to do in ER ADMINISTRATION OF INFLUENZA VIRUS On: 14-Jan-2012 Intent VACCINE ([id number])By: Bernadine Slaughter FLU VAC, SPLIT, >3 YEARS, INTRAMUSC On: 14-Jan-2012 Intent ([id number])By: Bernadine Slaughter DXA, BONE DENSITY, AXIAL SKELETON On: 09-Nov-2011 Intent ([id number])By: Rosa Isela Mcgarry MD Comments: loss of height, estrogen def. MAMMOGRAM, SCREENING, BOTH BREASTS On: 09-Nov-2011 Intent ([id number])By: Rosa Isela Mcgarry MD EKG ([id number])By: Rosa Isela Mcgarry MD On: 09-Nov-2011 Intent Comments: see scanned [...] Patient Instructions Indication: Dizziness and giddiness Encounters Lab Order On: 02-May-2018 17:12 Encounter Diagnosis: Hypertension, benign End: 02-May-2018 17:14 [facility] Office Visit On: 27-Apr-2018 9:27 Encounter Reason: [...] include flank pain, back pain and fever [facility] End: 14-Apr-2018 13:56 d 101 degrees [...] patient does not have durable power of attorney law clerk or living will. The aruna ent has [...] Current non-smoker), Cough, Chills, Sinusitis, bacterial, Diarrhea (787.48) [facility] Office Visit On: 02-Jun-2017 [...] for Tdap vaccination (Renamed from Need for fyvghgnhaj-nqgwvvr-acmwosavf (Tdap) vaccine, adult/adolescent) [facility] Office [...] patient does not have durable power of attorney law clerk or living will. The patient has noticed feeling emptiness in life , feeling helpless and having problems with memory than others. Other providers contributing to the patient's care are roller mechanic and other:.Encounter Diagnosis: Current nonsmoker (Renamed from [...] care from office visit to ER to [facility] psych unit secondary to halluci End: 05-Feb-2016 11:42 nations She was admitted to the geropsychiatric unit then trasferred to [address] seen by psychiatristJonathon arreola continued but low dose Zyprexa 2.5mg at bedtime for symptoms of psychosis and mood stabi lization . Seen by Dr Nga Gustafson MD of [facility] to follow up with Dr. Cline ??on [id number] diagnosis Bipolar mixed with psychotic features Metformin [...] up [facility]: [facility] [employer] Feeling depressed and falling asleepReports that tells [...] up ER: fell End: 22-Oct-2015 11:11 [address] [facility] October 16 after slipping on WalmartEncounter Diagnosis: Falling, Excessive daytime sleepiness, Abnormal TSH [...] completed the following preventative measures: PAP smear (04-05 [facility]), mammography (11-27-14) and colonoscopy (2012). The patient does not have durable power of attorney law clerk or living will. The patient has noticed dissatisfaction with life, dropping activities and interests, feeling emptiness in life, poor spirits most of time, feeling something bad will happen and having problems with memory than others. Other providers contributing to the patient's care are gas trologist (Dr. Montero ) and other: (endo: Dr. Mitchell). Note for Annual Medicare Exam: pt has disease case manager to help with some of [...] started new med last ??wednesday, started by customer supply chain analyst, ??rash under breast bilateral and chest improving [...] started new med last wednesday, started by customer supply chain analyst, rash under breast bilateral and chest. 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
--- OUTSIDE RECORDS SUMMARY | 2018-08-03 18:55 | XMS RPT_ITS | Continuity of Care Document ---
:1945 Author Organization [facility] Address [address] [place] [address] Phone Care Team Providers Name Role Phone Octavia Nichols DO Unavailable Alonso FLORES, Dr. Myla Arias Unavailable Dr. Fredy Cox Unavailable Jeana Juarez MD Unavailable [facility], [facility] Unavailable Ruma FLORES, Jaron Meléndez Unavailable [...] Comments: told pt to call counseling center NON DESTRUCTIVE TESTING SPECIALIST because panic worsen. see Dr. 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 parkinsons vs drug interaction will be discussing with Psych nurse and neurologist recent fall at [facility] Status: Active Fatty liver (K76.0, 571.8) [...] for Tdap vaccination (Renamed from Need for zwzuqpfnyg-huziqcj-chfecrsjv (Tdap) vaccine, adult/adolescent) (Z23, V06.1) Status: Active [...] being told to dig with thoughts of orthodox overtones Status: Active Pain of hand and [...] diabetes mellitus, well controlled (E11.9, 250.00) Comments: [facility] 09/29/17 5.9 well controlled Status: Active [...] takes as neededpsych prescribes CITRACAL SLOW RELEASE, 715-49-722RR-MG-UNIT (Oral Tablet Extended Release 24 Hour) 2 [...] Start : 23-May-2015 End : 04-Jun-2015 Inactive Comments:[facility] sent it in for her per [...] MG) End : 30-Sep-2012 Inactive Comments:d/c per [facility] [place] D[place]y Cough/Cold Daytime 1-16-949-325 MG/10ML Oral Liquid 5 Milliliter Milliliter q6 [...] 03-Feb-2013 End : 20-Nov-2013 Inactive Comments:Lazara Pradhan NON DESTRUCTIVE TESTING SPECIALIST at [facility] LORATADINE, 10MG (Oral Tablet) 1 qd [...] 14-Jun-2014 Inactive NASONEX, 50MCG/ACT (Nasal Suspension) 1 [place]a(s) each nostril daily for 0 days Quantity: 1 {Suspension} Refills: 0 Ordered:17-Oct-2012 [facility] Start : 26-Nov-2011 End : 17-Oct-2012 Inactive Bijbecga-Btikvyzxn-JV 1 % Otic Solution 1 (one) Metric [...] End : 21-Feb-2014 Discontinued Comments:re started per [facility] 09-30-12 AUGMENTIN, 875-125MG (Oral Tablet) 1 (one) [...] seen a surgeon Dr. Sinan Stark in [place] Status: Inactive as of 28-Dec-2016 Allergic rhinitis [...] Summary (1) Result: Comments: See Note; NOTES: [facility] Physical Therapy [facility] 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 Goal Progress: Goal Met Goal 5:: Pt will be independent with HEP to sustain gains made in the clinic. Goal Progress: Goal Met - Plan Plan: D/C - D/C Information Dischar Comments: MAY TRY MASSAGE ON OWN If there are questions or concerns regarding this patient's physical therapy, please feel free to call me at [phone]. Thank you for the referral of this patient. Sincerely, Samy Johnson PT, <Electronically signed by Samy Johnson PT, Cert. T, [facility]> 03/16/18 0954 CC: Octavia Nichols DO VEDA Signed 03-Mar-2018 Operative Report - Endoscopy Result: Comments: See Note; NOTES: [facility] Medical Records Department [address] [place] [address] Operative Report - Endoscopy MR#: [id number] Acct: [id number] Name: Demar MCKAY Rep #: [id number] : 1945 73 From: Cruz Montero MD PCP: Octavia Nichols DO Status: REG [facility] Patient Name: Joseluis Mckay Procedure Date: 03/03/2018 [...] for surveillance. Procedure Code(s): --- Professional --- 94237, Colonoscopy, flexible; diagnostic, including collection of specimen(s) by brushing or washing, when performed (separate procedure) 30881, 59, Moderate sedation services provided by the same physician or other qualified health pulmonary care nurse performing the diagnostic or therapeutic [...] congenital malformations of intestine CPT copyright 2017 [employer]. All rights reserved. The codes documented in this report are preliminary and upon data analytics chief scientist review may be revised to meet current compliance requirements. Romeo Montero MD 03/03/2018 11:33:51 AM This report has been signed electronically. Number of Addenda: 0 Note Initiated On: 03/03/2018 11:00 AM 03/03/18 1134 Date Cruz Montero MD Cosign Signature: Date (if indicated) CC: Octavia Nichols DO; Cruz Montero MD Date Dictated: 03/03/18 1100 Date Transcribed: Digital Production Manager: SENIA Signed 03-Mar-2018 History and Physical Exam Result: Comments: See Note; NOTES: [facility] Medical Records Department [address] [place] [address] History and Physical 03/03/18 1055 MR#: [id number] Acct: [id number] Name: JOSELUIS CRAFT Rep #: [id number] : 1945 73 From: Cruz Montero MD PCP: Octavia Nichols DO Status: REG [facility] Y Location: [place] [address] Problem List (1) Personal history of colonic [...] PT (1) Result: Comments: See Note; NOTES: [facility] Physical Therapy [facility] 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 [...] do not hesitate to contact me at [phone] by phone or if you have questions or concerns regarding this new plan of care! Sincerely, Samy Johnson PT, <Electronically signed by Samy Johnson PT, Cert. MDT, OCS> 02/23/18 1449 CC: Gricel Nichols DO VEDA Signed For Medicare only, by signing this I certify the plan of care. Physicians Signature Date 24-Jan-2018 Re-Evaluation - PT (1) Result: Comments: See Note; NOTES: [facility] Physical Therapy [facility] [address] [place] [address] Fax [facility] MR#: [id number] Acct: [id number] Name: JOSELUIS MCKAY Rep #: [id number] : 1945 73 From: Samy Johnson PT, Cert. 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 [...] do not hesitate to contact me at [phone] by phone or if you have questions or concerns regarding thi s new plan of care! Sincerely, Samy Johnson PT, <Electronically signed by Samy Johnson PT, Cert. MDT, OCS> 01/24/18 2642 CC: Octavia Nichols DO CABRERAA Signed For Medicare only, by signing this I certify the plan of care. Physicians Signature Date 13-Jan-2018 Emergency Department Summary Result: Comments: See Note; NOTES: [facility] Medical Records Department [address] [place] [address] Emergency Department Summary 01/13/18 2142 MR#: [id number] Acct: [id number] Name: JOSELUIS MCKAY Rep #: [id number] : 1945 73 From: Susie Maki DO [...] triquetral fracture] This note was generated with [employer] software. It may contain incorrect words, spelling, [...] your Primary Care Provider. Call [facility] ([phone]) or repo rt to the closest Emergency Room. Call 911 if necessary. 01/13/182143 <Electronically signed by Susie Maki DO> Date Susie Maki DO Cosigner Signature (If Indicated): Date CC: Octavia Nichols DO 13-Jan-2018 Discharge Instruction Result: Comments: See Note; NOTES: [facility] Medical Records Department [address] [place] [address] Discharge Instruction 01/13/182131 MR#: [id number] Acct: [id number] Name: ISAURABRIANNA JOSELUIS HENSLEY Rep #: [id number] : 1945 73 From: Susie Maki DO [...] your Primary Care Provider. Call [facility] ([phone]) or report to the closest Emergency Room. Call 911 if nec essary. 01/13/182132 <Electronically signed by Susie Maki DO> Date Susie Maki DO Cosigner Signature (If Indicated): Date ____ CC: Octavia Nichols DO 13-Jan-2018 Emergency Department Summary Result: Comments: See Note; NOTES: [facility] Medical Records Department [address] [place] [address] Emergency Department Summary 01/13/189 MR#: [id number] Acct: [id number] Name: JOSELUIS MCKAY Rep #: [id number] : 1945 73 From: Susie Maki DO [...] wrist sprain] This note was generated with [facility] dictation software. It may contain incorrect words, [...] your Primary Care Provider. Call [facility] ([phone]) or report to the closest Emergen cy Room. Call 911 if necessary. 01/13/182 <Electronically signed by Susie Maki DO> Date Susie Maki DO Cosigner Signature (If Indicated): Date CC: Octavia Nichols DO 13-Jan-2018 Wrist min 3 Views Result: Comments: See Note; NOTES: [facility] Imaging Services [address] [place] [address] Wrist min 3 Views MR#: [id number] Acct: [id number] Name: JOSELUIS MCKAY Rep #: [id number] : 1945 F 73 From: Jonny Sandy MD PCP: Octavia Nichols DO Status: PRE ER Study: Wrist min 3 Views Date of Exam: 01/13/18 Exam# [id number] Ordering Dr: Provider, Ed P. STUDY: X-RAY [...] CC: ED PHYSICIAN PROVIDER; Octavia Nichols DO Digital Production Manager: Signed 12-Jan-2018 Wrist min 3 Views Result: Comments: See Note; NOTES: [facility] Imaging Services [address] [place], [place] [address] [place] [address] Wrist min 3 Views MR#: [id number] Acct: [id number] Name: JOSELUIS MCKAY Rep #: [id number] : 1945 F 73 From: Suleman Chan MD PCP: Octavia Nichols DO Status: REG CLI Study: Wrist min 3 Views Date of Exam: 01/12/18 Exam# [id number] Ordering Dr: Aylin Sierra STUDY: X-RAY - [...] Suleman Chan MD at 11:10 EDT Tel [phone], Service support , CC: Aylin Sierra NON DESTRUCTIVE TESTING SPECIALIST; Octavia Nichols DO Digital Production Manager: Signed 24-Dec-2017 Re-Evaluation - PT (1) Result: Comments: See Note; NOTES: [facility] Physical Therapy 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 [...] do not hesitate to contact me at [phone] by phone or if you have questions or concerns regarding this new plan of care! Sincerely, Samy Johnson PT, <[facility] signed by Samy Johnson PT, Cert. MDT, [facility]> 12/24/17 1629 CC: Octavia Nichols DO VEDA Signed For Medicare only, by signing this I certify the plan of care. Physicians Signature Date 10-Dec-2017 DIAG MAMM W/CAD, BILAT Result: Comments: See Note; NOTES: [facility] Imaging Services [address] [place] [address] DIAG MAMM W/CAD, BILAT MR#: [id number] Acct: [id number] Name: JOSELUIS MCKAY Rep #: [id number] : 1945 F 72 From: Jonny Lovelace MD PCP: Octavia Nichols DO Status: REG CLI Study: DIAG MAMM W/CAD, BILAT Date of Exam: 12/10/17 Exam# [id number] Ordering Dr: Karen Gandhi MAMMO GRAPHY - [...] delay biopsy of a clinically suspicious abnormality. [id number] Electronically Signed: Kamar Lovelace MD at 14:52 EDT , Serv ice support , CC: GEETA Gandhi; Octavia Nichols DO Digital Production Manager: Signed 25-Nov-2017 Inital Evaluation (1) - PT Result: Comments: See Note; NOTES: [facility] Physical Therapy [facility] [address] [place] [address]. 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 [...] to be FAXED BACK to us at [phone] for Medicare purposes. Please let me know if there are questions or concerns regarding this plan of care. Physician Signature: Date:__ <Electronically signed by Samy Johnson PT, Cert. PORTIA, OCS> 11/25/17 9816 CC: Octavia Nichols DO VEDA Signed For Medicare only, by signing th is I certify the plan of care. Physicians Signature Date 21-Nov-2017 Emergency Department Summary Result: Comments: See Note; NOTES: [facility] Medical Records Department [address] [place] [address] Emergency Department Summary 11/21/17 1125 MR#: [id number] Acct: [id number] Name: JOSELUIS MCKAY Rep #: [id number] : 1945 72 From: Bernadine Vargas MD [...] neck strain This note was generated with [facility] dictation software. It may contain incorrect words, [...] your Primary Care Provider. Call [facility] ([phone]) or report to the closest Emergency Room. Call 911 if necessa ry. 11/21/17 8848 <Electronically signed by Bernadine Vargas MD> Date Bernadine Vargas MD Cosigner Signature (If Indicated): Date CC: Octaviaeros Nichols 21-Nov-2017 Discharge Instruction Result: Comments: See Note; NOTES: [facility] Medical Records Department [address] [place] [address] Discharge Instruction 11/21/17 1222 MR#: [id number] Acct: [id number] Name: JOSELUIS HURLEY Rep #: [id number] : 1945 72 From: Bernadine Vargas MD [...] your Primary Care Provider. Call [facility] ([phone]) or report to the closest Emergency Room. Call 911 if necessary. 1223 <Electronically signed by Bernadine Vargas MD> Date Bernadine Vargas MD Cosigner Signature (If Indicated): Date _ CC: Octaviaeros Nichols 21-Nov-2017 Brain/Head without Contrast Result: Comments: See Note; NOTES: [facility] Imaging Services [address] [place] [address] Brain/Head without Contrast MR#: [id number] Acct: [id number] Name: JOSELUIS MCKAY p #: [id number] : 1945 F 72 From: Trish Moser MD PCP: Octavia Nichols DO Status: REG Study: Brain/Head without Contrast Date of Exam: 11/21/17 Exam# [id number] Ordering Dr: Bernadine Vargas MD STUDY: CT [...] CC: Bernadine Vargas MD; Octavia Nichols DO Digital Production Manager: Signed 21-Nov-2017 Spine Cervical without Contras Result: Comments: See Note; NOTES: [facility] Imaging Services [address] [place] [address] Spine Cervical without Contras MR#: [id number] Acct: [id number] Name: JOSELUIS MCKAY Rep #: [id number] : 1945 F 72 From: Trish Moser MD PCP: Octavia Nichols DO Status: REG ER Study: Spine Cervical without Contras Date of Exam: 11/21/17 Exam# [id number] Ordering Dr: Uzair Vargas MD STUDY: CT [...] at 11:57 EDT Tel , Service support [phone], CC: Bernadine Vargas MD; Octavia Nichols DO Digital Production Manager: Signed 27-Aug-2017 Chest PA and Lateral Result: Comments: See Note; NOTES: [facility] Imaging Services [address] [place] [address] Chest PA and Lateral MR#: [id number] Acct: [id number] Name: JOSELUIS MCKAY Rep #: : 1945 F 72 From: Katie Hopkins MD PCP: Octavia Nichols DO Status: REG CLI Study: Chest PA and Lateral Date of Exam: 08/27/17 Exam# [id number] Ordering Dr: Octavia Nichols DO XR Chest [...] Tel , S ervice support , CC: Octaiva Nichols DO Digital Production Manager: Signed 02-Aug-2017 12 Lead Electrocardiogram Result: Comments: See Note; NOTES: [facility] Cardiovascular Services [address] [place] [address] 12 Lead EKG 07/28/17 1143 MR#: [id number] Acct: [id number] Name: JOSELUIS MCKAY Rep #: [id number] : 1945 72 From: Haseeb Tinoco MD [...] normal ECG Confirmed by HASEEB TINOCO ([id number]), commissioning editor KATIE MELO ([id number]) on 08/02/2017 2:06:31 PM Referred By: Octavia Nichols Confirmed By:HASEEB TINOCO 08/02/17 1406 Date Haseeb Tinoco MD CC: Octavia Nichols DO; Kristian Sauceda MD Signed 28-Jul-2017 Emergency Department Summary Result: Comments: See Note; NOTES: [facility] Medical Records Department [address] [place] [address] Emergency Department Summary 07/28/17 1214 MR#: [id number] Acct: [id number] Name: JOSELUIS MCKAY Rep #: [id number] : 1945 72 From: Kristian Sauceda MD [...] sensation to light touch throughout. N ormal pzhxde-ouhs-yyfyje and czho-qzxc-vnde bilaterally. Normal gait. General: A AND O [...] should she be sent over to the [facility]. She will be discharged to there. Disposition: To home in improved and stable condition. Impression: 1. Transient visual changes. This note was generated with [facility] dictation software. It may contain i ncorrect [...] problems, contact your Primary Care Provider. Call [employer] Registry ([phone]) or report to the closest Emergency Room. Call 911 if necessary. 07/28/17 1711 & #60;Electronically signed by Kristian Sauceda MD> Date Kristian Sauceda MD Cosigner Signature (If Indicated): Date CC: Octavia Simone HOGUE 28-Jul-2017 Brain/Head without Contrast Result: Comments: See Note; NOTES: [facility] Imaging Services [address] [place] [address] Brain/Head without Contrast MR#: [id number] Acct: [id number] Name: JOSELUIS MCKAY Jazmyne p #: [id number] : 1945 F 72 From: Suleman Chan MD PCP: Octavia Nichols DO Status: REG ER Study: Brain/Head without Contrast Date of Exam: 07/28/17 Exam# [id number] Ordering Dr: Sa milan Sauceda MD STUDY: [...] Suleman Chan MD at 11:36 EDT Tel [phone], Service support , CC: Octavia Nichols DO; Kristian Sauceda MD Digital Production Manager: Signed 22-Jul-2017 Echocardiogram Complete Result: Comments: See Note; NOTES: [facility] Cardiovascular Services [address] [place] [address] Echo Complete 07/22/17 0855 MR#: [id number] Acct: [id number] Name: MARY MCKAY RA Rep #: [id number] : 1945 72 From: Haseeb Tinoco MD Attending Dr: Octavia Nichols DO Status: REG CLI Ordering Dr: Octavia Nichols DO Date: 07/22/17 Location: [facility] Sex: F C Admitted: Shwetha son [...] Dictated: 07/22/17 0855 Date Transcribed: 07/22/17 1510 Digital Production Manager: Signed 14-Jul-2017 Carotid Duplex Ultrasound Result: Comments: See Note; NOTES: [facility] Cardiovascular Services [address] [place] [address] Carotid Duplex Ultrasound 07/13/1719 MR#: [id number] Acct: [id number] Name: JOSELUIS YADAV Rep #: [id number] : 1945 72 From: Finesse Barrios MD [...] the left vertebral artery. Procedure Carotid Duplex 63880. The exam was diagnostic. Exam performed in department. Interpretation Summary Moderate (50-69%) stenosis right extracranial internal carotid. No significant atherosclerotic plaque or stenosis noted in the left internal carotid artery. Flow within the vertebral arteries is antegrade bilaterally. Ordering Physician: Octavia Nichols Performed By: Chilango Caballero RVRicardo 07/14/172027 Date Finesse Barrios MD CC: Octavia Nichols DO Date Dictated: 07/13/17918 Date Transcribed: 07/14/172027 Digital Production Manager: Signed 12-Jan-2017 Operative Report Result: Comments: See Note; NOTES: [facility] Medical Records Department [address] [place] [address] Operative Report 01/12/17 1150 MR#: [id number] Acct: [id number] Name: Demar MCKAY Rep #: [id number] : 1945 72 From: Cruz Montero MD PCP: Octavia Nichols DO Status: REG CLI Y Location: [place] [address] Report of Operation Date of Procedure: 01/12/17 [...] Department Summary Result: Comments: See Note; NOTES: [facility] Medical Records Department [address] [place] [address] Emergency Department Summary 01/05/17 1846 MR#: [id number] Acct: [id number] Name: JOSELUIS MCKAY Rep #: [id number] : 1945 71 From: Haseeb Hyatt DO [...] Primary Ca re Provider. Call [facility] ([phone]) or report to the closest Emergency Room. Call 911 if necessary. 01/05/17 1735 <Electronically signed by Haseeb Hyatt DO> Date ____ Haseeb Hyatt DO Cosigner Signature (If Indicated): Date CC: Octavia Nichols DO 05-Jan-2017 SCREENING MAMM (CAD), BILAT Result: Comments: See Note; NOTES: [facility] Imaging Services [address] [place] [address] SCREENING MAMM (CAD), BILAT MR#: [id number] Acct: [id number] Name: JOSELUIS MCKAY p #: [id number] : 1945 F 71 From: Jose Armas MD PCP: Octavia Nichols DO Status: REG CLI Study: SCREENING MAMM (CAD), BILAT Date of Exam: 01/05/17 Exam# [id number] Ordering Dr: Evan Nichols DO MAMMOGRAPHY - [...] delay biopsy of a clinically suspicious abnormality. [id number] Electronically Signed: Jose Armas MD at 14:49 EDT Tel , Service support , CC: Octavia Nichols DO Digital Production Manager: Signed 02-Dec-2016 Ankle min 3 Views Result: Comments: See Note; NOTES: [facility] Imaging Services [address] [place] [address] Verdana 4d Ankle min 3 Views MR#: [id number] Acct: [id number] Name: ANGAYDENJOSELUIS Call Romeo ep #: [id number] : 1945 F 71 From: Jose Reno MD PCP: Octavia Nichols DO Status: REG CLI Study: Ankle min 3 Views Date of Exam: 12/02/16 Exam# [id number] Ordering Dr: Aylin Sierra STUDY: X-R AY [...] , CC: Aylin Sierra; Octavia Nichols DO Digital Production Manager: Signed 08-Jun-2016 Hand Min 3 Views Result: Comments: See Note; NOTES: [facility] Imaging Services [address] [place] [address] Verdana 4d Hand Min 3 Views MR#: [id number] Acct: [id number] Name: JOSELUIS MCKAY Jazmyne p #: [id number] : 1945 F 71 From: Suleman Chan MD PCP: Octavia Nichols DO Status: REG CLI Study: Hand Min 3 Views Date of Exam: 06/08/16 Exam# [id number] Ordering Dr: Octavia Nichols DO STUDY: X-RAY [...] Suleman Chan MD at 14:44 EST Tel [phone], Service support [phone], CC: Octavia Nichols DO Digital Production Manager: Signed 20-Apr-2016 Elbow min 3 Views Result: Comments: See Note; NOTES: [facility] Imaging Services [address] [place] [address] Verdana 4d Elbow min 3 Views MR#: [id number] Acct: [id number] Name: ANGAYDENJOSELUIS Jakub Walters ep #: [id number] : 1945 F 71 From: Gabo Brito MD PCP: Octavia Nichols DO Status: REG CLI Study: Elbow min 3 Views Date of Exam: 04/20/16 Exam# [id number] Ordering Dr: Octavia Nichols DO STUDY: X-RAY [...] MD at 23:25 EST , Service support [phone], CC: Octavia Nichols DO Digital Production Manager: Signed 20-Apr-2016 Humerus min 2 Views Result: Comments: See Note; NOTES: [facility] Imaging Services [address] [place] [address] Verdana 4d Humerus min 2 Views MR#: [id number] Acct: [id number] Name: ISAURABRIANNAAYDENJOSELUIS Jakub Rep #: [id number] : 1945 F 71 From: Gabo Brito MD PCP: Octavia Nichols DO Status: REG CLI Study: Humerus min 2 Views Date of Exam: 04/20/16 Exam# [id number] Ordering Dr: Octavia Nichols DO STUDY: X-RAY [...] MD at 23:28 EST , Service support [phone], Fax CC: Octavia Nichols DO Digital Production Manager: Signed 27-Jan-2016 12 Lead Electrocardiogram Result: Comments: See Note; NOTES: [facility] Cardiovascular Services [address] [place] [address] 12 Lead EKG 01/24/16 160 MR#: [id number] Acct: [id number] Name: JAKE MCKAY Rep #: [id number] : 1945 71 From: Sebastian Valenzuela MD [...] ECG Confirmed by SEBASTIAN VALENZUELA MD ([id number]), commissioning editor KATIE MELO ([id number]) on 01/27/2016 1:21:19 PM Referred By: Confirmed By:SEBASTIAN VALENZUELA MD 01/27/16 1321 Date ____ Sebastian Valenzuela MD CC: Aylin Sierra Date Dictated: 01/24/16 1601 Date Transcribed: 01/24/16 160 Digital Production Manager: Signed 27-Jan-2016 Emergency Department Summary Result: Comments: See Note; NOTES: [facility] Medical Records Department [address] [place] [address] Emergency Department Summary MR#: [id number] Acct: [id number] Name: JOSELUIS MCKAY Rep #: [id number] : 1945 71 From: Kristian Sauceda MD [...] arranged for her to be transferred to [facility]. DISPOSITION: Transferre d in stable condition. IMPRESSION: Acute naif. Kristian Sauceda MD C C: Aylin Sierra T: [facility] JOB: [id number] 01/27/16 0044 <Electronically signed by Kristian Sauceda MD> Date Kristian Sauceda MD Cosigner Signature (If Indicated): Date CC: Aylin Sierra Date Dictated: 01/24/161613 Date Transcribed: 01/24/161613 Digital Production Manager: Signed 03-Jan-2016 Brain/Head without Contrast Result: Comments: See Note; NOTES: [facility] Imaging Services [address] [place] [address] Verdana 4d Brain/Head without Contrast MR#: [id number] Acct: [id number] Name: JOSELUIS MCKAY Rep #: [id number] : 1945 F 70 From: Suleman Chan MD PCP: Aylin Sierra Status: REG CLI Study: Brain/Head without Contrast Date of Exam: 01/03/16 Exam# [id number] Ordering Dr: Aylin Sierra STUDY: CT BRAIN [...] Suleman Chan MD at 11:16 EDT Tel [phone], Service support [phone], Fax CC: Aylin Sierra Digital Production Manager: Signed 19-Oct-2015 Emergency Department Summary Result: Comments: See Note; NOTES: [facility] Medical Records Department [address] [address] Emergency Department Summary MR#: [id number] Acct: [id number] Name: JOSELUIS MCKAY Rep #: [id number] : 1945 70 From: Rogelio Marcial MD [...] was apparently at Dr. 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 She accordingly got turned out for [...] the patient may be overmedicated as well. Winona scale was negative and they did say [...] at 3 a.m. Acc ording to the soil tester, her blood pressure were reportedly low, but [...] time. No facial droop. N o abnormal izbyrs-wy-zeeg. She has normal iffd-ca-jkzz, no drift. Negative Babinski. She does appear [...] C: Rosa Isela Sierra T: NTS JOB: [id number] 10/19/15 2306 &am p;#60;Electronically signed by Rogelio Marcial MD> Date Rogelio Marcial MD Cosigner Signature (If Indicated): Date CC: Aylin Sierra; Rosa Isela Sweet MD Date Dictated: 10/17/151707 Date Transcribed: 10/17/151707 Digital Production Manager: Signed 19-Oct-2015 Emergency Department Summary Result: Comments: See Note; NOTES: [facility] Medical Records Department [address] [place] [address] Emergency Department Summary MR#: [id number] Acct: [id number] Name: JOSELUIS MCKAY Rep #: [id number] : 1945 70 From: Man Salamanca MD PCP: Aylin Sierra Status: DEP ER DATE OF SERVICE: 10/19/2015 CHIEF COMPLAINT: Fall. HISTORY OF PRESENT ILLNESS : A 70-year-old female who slipped on some salt on the floor at [facility], injuring her head. She is right [...] Tejada C: Aylin Sierra T: VIKY JOB: [id number] 10/19/15 1838 <Electronically signed by Man Salamanca MD> Date Man Salamanca MD Cosigner Signature (If Indicated): Date CC: Aylin Sierra Date Dictated: 10/19/15 144 Date Transcribed: 10/19/151441 Digital Production Manager: Signed 19-Oct-2015 Discharge Instruction Result: Comments: See Note; NOTES: [facility] Medical Records Department [address] [place] [address] Discharge Instruction 10/19/151442 MR#: [id number] Acct: [id number] Name: JOSELUIS MCKAY Rep #: [id number] : 1945 70 From: Man Salamanca MD [...] problems, contact your doctor. Call [facility] ([phone]) or report to the closest Emergency Room. Call 911 if necessary. 10/19/15 1443 <Electronically signed by Man Salamanca MD> Date Man Salamanca MD Cosigner Signature (If Indicated): Date CC: Aylin Sierra 19-Oct-2015 Brain/Head without Contrast Result: Comments: See Note; NOTES: [facility] Imaging Services [address] [place] [address] Verdana 4d Brain/Head without Contrast MR#: [id number] Acct: [id number] Name: JOSELUIS MCKAY Rep #: [id number] : 1945 F 70 From: Noé Carr MD PCP: Aylin Sierra Status: REG ER Study: Brain/Head without Contrast Date of Exam: 10/19/15 Exam# [id number] Ordering Dr: Man Salamanca MD STUDY: CT [...] Carr MD at 13:03 EDT Tel [phone], Service support [phone], CC: Aylin Sierra; MAN SALAMANCA MD Digital Production Manager: Signed 17-Oct-2015 Discharge Instruction Result: Comments: See Note; NOTES: [facility] Medical Records Department [address] [place] [address] Discharge Instruction 10/17/15 1652 MR#: [id number] Acct: [id number] Name: ANGAYDENJOSELUIS Jakub Rep #: [id number] : 1945 70 From: Rogelio Marcial MD [...] problems, contact your doctor. Call [facility] ([phone]) or report to the closest Emergency Room. Call 911 if necessary. 10/17/15 3228 <Electronically signed by Rogelio Marcial MD> Date Rogelio Marcial MD Cosigner Signature (If Indicated): Date CC: Aylin Sierra 17-Oct-2015 Brain/Head without Contrast Result: Comments: See Note; NOTES: [facility] Imaging Services [address] [place] [address] Verdana 4d Brain/Head without Contrast MR#: [id number] Acct: [id number] Name: JOSELUIS MCKAY Rep #: [id number] : 1945 F 70 From: Man Garcia MD PCP: Aylin Sierra Status: REG ER Study: Brain/Head without Contrast Date of Exam: 10/17/15 Exam# [id number] Rocío harris Dr: Rogelio Marcial MD STUDY: [...] MD at 16:33 EDT , Service support [phone], CC: Aylin Sierra; Rogelio Marcial MD Digital Production Manager: Signed 17-Oct-2015 Chest PA and Lateral Result: Comments: See Note; NOTES: [facility] Imaging Services [address] [place] [address] Verdana 4d Chest PA and Lateral MR#: [id number] Acct: [id number] Name: JOSELUIS MACIAS Rep #: [id number] : 1945 F 70 From: Man Garcia MD PCP: Aylin Sierra Status: REG ER Study: Chest PA and Lateral Date of Exam: 10/17/15 Exam# [id number] Ordering Dr: Allison Marcial MD STUDY: X-RAY [...] MD at 16:28 EDT , Service support [phone], ORDER #: [id number] RAD/Chest PA and Lateral IMPRESSION: Degenerative changes, as described above. No demonstrated acute cardiopulmonary process. Electronically Signed: Man Garcia MD at 16:28 EDT , Service support [phone], CC: Aylin Sierra; Rogelio Marcial MD Digital Production Manager: Signed 07-May-2015 EKG (23902) Result: [MEASUREMENTS ANALYSIS] Date of Test: 05/07/2015 14:57:34; Heart Rate: 74; IL Interval: 180; QRS: 97; QT Interval: 372; Corrected QT Interval (QTc): 396; P [place]: 66; QRS [place]: -4; T [place]: 40; Blood Pressure: 118/76 [ECG DIAGNOSTIC STATEMENTS] Date of Test: 05/07/2015 14:57:34; Summary: Sinus Rhythm -Left atrial enlargement. - Negative precordial T-waves. BORDERLINE [MEASUREMENTS ANAL YSIS] Date of Test: 05/07/2015 14:57:26; Heart Rate: 73; IL Interval: 184; QRS: 100; QT Interval: 370; Corrected QT Interval (QTc): 392; P Wave [place]: 57; QRS [place]: 6; T [place]: 48; Blood Pressur e: 118/76 [ECG DIAGNOSTIC STATEMENTS] Date of Test: 05/07/2015 14:57:26; Summary: Sinus Rhythm -Left atrial enlargement. - Negative precordial T-waves. BORDERLINE 28-Feb-2015 PT Discharge Summary Result: Comments: See Note; NOTES: [facility] Physical Therapy [facility] [facility]. [address] [place], [place] [address] Fax REHABILITATION SE RVICES DISCHARGE SUMMARY MR#: [id number] Acct: [id number] Name: JOSELUIS MCKAY Rep #: [id number] : 1945 70 From: Samy Johnson Referring [...] referral. Samy Johnson, PT T: NTS JOB: [id number] <Electronically signed by Samy Johnson > 1026 CC: Rosa Isela Sweet MD Signed 26-Feb-2015 EKG (92152) Comments: see scanned document of test done to see results reviewed today with patient v Result: [MEASUREMENTS ANALYSIS] Date of Test: 02/26/2015 12:21:51; Heart Rate: 57; [place] Interval: 172; QRS: 102; QT Interval: 406; Corrected QT Interval (QTc): 401; P Wave [place]: 34; QRS [place]: -4; T [place] : 26; Blood Pressure: 100/70 [ECG DIAGNOSTIC STATEMENTS] Date of Test: 02/26/2015 12:21:51; Summary: Sinus Bradycardia WITHIN NORMAL LIMITS 31-Jan-2015 Inital Evaluation - PT Result: Comments: See Note; NOTES: [facility] Physical Therapy [facility] [address] [place] [address] Fax REHABILITATION SERVICES INITIAL EVALUATION MR#: [id number] Acct: [id number] Name: JOSELUIS MCKAY Rep #: [id number] : 1945 70 From: Samy Johnson Referring [...] to be FAXED BACK to us at [phone] for Medicare purposes. Please let me know if there are questions or concerns regarding this plan of care. Physician Signature: Date:____ <Electronically signed by Samy Johnson > 01/31/15 0812 CC: Rosa Isela Sweet MD; Samy Rodriguez MD Signed For Medicare only, by signing this I certify the plan of care. Physicians Signature Date 18-Jan-2015 Parathyroid Scan Result: Comments: See Note; NOTES: [facility] Imaging Services [address] [place] [address] Nuclear Medicine Report MR#: [id number] Acct: [id number] Name: JOSELUIS MCKAY Rep #: [id number] : 1945 F 70 From: Sd Elmore DO PCP: Rosa Isela Sweet MD Status: REG CLI Study: Parathyroid Scan Date of Exam: 01/18/15 Exam# [id number] Ordering Dr: Maxx Mitchell CL INICAL: 70-year-old [...] of the right thyroid bed. Electronically Signed: dS alford DO at 11:27 EDT Tel [phone], Service support [phone], CC: Rosa Isela Sweet MD; MAXX MITCHELL Digital Production Manager: Signed 07-Dec-2014 Gastric Emptying Study Result: Comments: See Note; NOTES: [facility] Imaging Services [address] [place] [address] Nuclear Medicine Report MR#: [id number] Acct: [id number] Name: JOSELUIS MCKAY Rep #: [id number] : 1945 F 69 From: Sd Elmore DO PCP: Rosa Isela Sweet MD Status: REG CLI Study: Gastric Emptying Study Date of Exam: 12/07/14 Exam# [id number] Ordering Dr: Rosa Isela Sweet MD CLINICAL: [...] Sd Elmore DO at 22:08 EDT Tel [phone], Service support [phone], CC: Rosa Isela Sewet MD Digital Production Manager: Signed 26-Nov-2014 Bilat Scrn Digital AND CAD Result: Comments: See Note; NOTES: [facility] Imaging Services [address] [place] [address] Breast Imaging Report MR#: [id number] Acct: [id number] Name: JOSELUIS MCKAY ep #: [id number] : 1945 F 69 From: Suleman Chan MD PCP: Rosa Isela Sweet MD Status: REG CLI Study: Bilat Scrn Digital AND CAD Date of Exam: 11/26/14 Exam# [id number] Ordering Dr: Rosa Isela Sweet MD MAMMOGRAPHY [...] Suleman Chan MD at 9:19 EDT Tel [phone], Service support [phone], CC: Rosa Isela Sweet MD Digital Production Manager: Signed 26-Nov-2014 Thyroid Result: Comments: See Note; NOTES: [facility] Imaging Services [address] [place] [address] Ultrasound Report MR#: [id number] Acct: [id number] Name: JOSELUIS MCKAY Rep # : [id number] : 1945 F 69 From: Suleman Chan MD PCP: Rosa Isela Sweet MD Status: REG CLI Study: Thyroid Date of Exam: 11/26/14 Exam# [id number] Ordering Dr: Rosa Isela Sweet MD STUDY: [...] Chan MD 4 at 14:32 EDT Tel [phone], Service support [phone], CC: Rosa Isela Sweet MD Digital Production Manager: Signed 16-Aug-2014 Abdomen Single View Result: Comments: See Note; NOTES: [facility] Imaging Services [address] [place] [address] Radiology Report MR#: [id number] Acct: [id number] Name: JOSELUIS MCKAY Rep #: [id number] : 1945 F 69 From: Man Garcia MD PCP: Rosa Isela Sweet MD Status: [facility] Study: Abdomen Single View Date of Exam: 08/16/14 Exam# [id number] Ordering Dr: Jose Rodas MD [facility] DY: X-RAY - ABDOMEN/PELVIS REASON FOR EXAM: [...] Rosa Isela Sweet MD; Jose Rodas MD Digital Production Manager: Signed 05-Jul-2014 Operative Report Result: Comments: See Note; NOTES: [facility] Medical Records Department [address] [place] [address] Operative Report MR#: [id number] Acct: [id number] Name: JOSELUIS MCKAY Rep #: [id number] : 1945 69 From: Jose Rodas MD PCP: Rosa Isela Sweet MD Status: [facility] DATE OF SERVICE: 07/04/2014 DATE OF PROCEDURE: [...] skin. Jose Rodas MD T: NTS JOB: [id number] 07/05/14 0726 <Electronically signed by Jose Rodas MD> Date __ Jose Rodas MD CC: Rosa Isela Sweet MD; Jose Rodas MD Date Dictated: 07/04/141106 Date Transcribed: 07/04/141106 Digital Production Manager: Signed 04-Jul-2014 Operative Report Result: Comments: See Note; NOTES: [facility] Medical Records Department [address] [place] [address] Operative Report 07/04/14 110 MR#: [id number] Acct: [id number] Name: JOSELUIS PANDYA Rep #: [id number] : 1945 69 From: Jose Rodas MD PCP: Rosa Isela Sweet MD Status: REG [facility] Y Location: [place] [address] Report of Operation Date of Procedure: 07/04/14 [...] Discharge Instruction Result: Comments: See Note; NOTES: [facility] Medical Records Department [address] [place] [address] Instructions for Home/Discharge Instructions 07/04/14 1100 MR#: [id number] [facility] t: [id number] Name: JOSELUIS MCKAY Rep #: [id number] : 1945 69 From: Jose Rodas MD PCP: Rosa Isela Sweet MD Status: REG [facility] Discharge Diet: No Restrictions Discharge Activity: R eturn to Normal Activity, May Not Drive - for 2 days., May not drive while taking narcotic pain medications. Return to work on:: 07/09/14 May shower in (days): 1 Additional Activity Instructions:: I f you have any problems call [phone] and ask for your doctor to be [...] without Cont Result: Comments: See Note; NOTES: [facility] Imaging Services [address] [place] [address] CAT Scan Report MR#: [id number] Acct: [id number] Name: JOSELUIS MCKAY Rep #: [id number] : 1945 F 69 From: Escobar Marroquin DO PCP: Rosa Isela Sweet MD Status: REG CLI Study: Abdomen/Pelvis without Cont Date of Exam: 06/08/14 Exam# [id number] Ordering Dr: Jose Rodas MD [facility]: CT ABDOMEN AND PELVIS WITHOUT CONTRAST [...] Escobar Marroquin DO at 9:48 EST Tel [phone], Service support [phone], CC: Rosa Isela Sweet MD; Jose Rodas MD Digital Production Manager: Signed 05-Jun-2014 PT Discharge Summary Result: Comments: See Note; NOTES: [facility] Physical Therapy [facility] [address] [place] [address]. [address] [place] [address] Fax REHABILITATION SERVICES DISCHARGE SUMMARY MR#: [id number] Acct: [id number] Name: JOSELUIS MCKAY Rep #: [id number] : 1945 69 From: Samy Johnson Referring [...] transiti on to a [facility] under [place] [facility]. We provided the patient with some exercises, [...] will resume her exercise here in the [place] [facility]. Otherwise, once again, thank you for this referral. Samy Johnson, PT T: VIKY JOB: [id number] <Electronically signed by Samy Johnson > 06/05/14 1530 CC: Signed 31-May-2014 Kidney and Bladder Result: Comments: See Note; NOTES: [facility] Imaging Services [address] [place] [address] Ultrasound Report MR#: [id number] Acct: [id number] Name: JOSELUIS MCKAY Rep #: [id number] : 1945 F 69 From: Jesus Espinoza DO PCP: Rosa Isela Sweet MD Status: REG CLI Study: Kidney and Bladder Date of Exam: 05/31/14 Exam# [id number] Ordering Dr: Jose Rodas MD ST UDY: [...] t 7:44 EST Tel , Service support [phone], CC: Rosa Isela Sweet MD; Jose Rodas MD Digital Production Manager: Signed 02-May-2014 Inital Evaluation - PT Result: Comments: See Note; NOTES: [facility] Physical Therapy [facility] [address] [facility] [place], [place] [address] Fax REHABILITATION SERVICES INITIAL EVALUATION MR#: [id number] Acct: [id number] Name: JOSELUIS MCKAY Rep #: [id number] : 1945 69 From: Samy Johnson Referring [...] education. Samy Johnson, PT T: VIKY JOB: [id number] <Electronically signed by Samy Johnson > 05/02/14 0838 CC: DD: 05/01 Signed For Medicare only, by signing this I certify the plan of care. Physicians Signature Date 07-Sep-2013 Knee 4 or More Views Result: Comments: See Note; NOTES: [facility] Imaging Services [address] [place] [address] Radiology Report MR#: [id number] Acct: [id number] Name: JOSELUIS MCKAY Rep #: [id number] : 1945 F 68 From: Suleman Chan MD PCP: Rosa Isela Sweet MD Status: REG CLI Study: Knee 4 or More Views Date of Exam: 09/07/13 Exam# [id number] Ordering Dr: Rosa Isela Sweet MD STUDY: [...] Suleman Chan MD at 14:43 EDT Tel [phone], Service support [phone], RAD/Knee 4 or More Views IMPRESSION: Chondrocalcinosis. Small joint effusion. 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 Midiol and had a [...] kg/m2 Body Surface Area Calculated 1.73 m2 6-Hcx-511614:00 Pulse 65 /min Comments: Pattern: Regular Respiration [...] kg/m2 Body Surface Area Calculated 1.66 m2 32-Xxi-166002:40 Temperature 97.6 f Comments: Method: Temporal Pulse [...] Value Details :25 Blood Glucose , Office (62497) Blood Glucose , Office 95 (Normal) :25 HgA1C , Office (98901) HgA1C , Office 6.0 % (Normal) Range: 4.6 - 7.1 :06 Urinalysis, Office (97701) UA - LEUKOCYTE ESTERASE Moderate (Normal) Comments: 70leu/uL UA - NITRITE Negative (Normal) UA - PROTEIN Negative mg/dL (Normal) UA - PH 6.0 (Normal) UA - BLOOD Negative (Normal) UA - SPECIFIC GRAVITY 1.030 (Abnormal) UA - KETONES Negative mg/dL (Normal) UA - BILIRUBIN + (Abnormal) UA - GLUCOSE Negative (Normal) 97-Aul-399031:17 Bedside Glucose Comments: [facility] [address] [place] [address] BEDSIDE GLU 88 mg/dL (Normal) Range: 70-110 Comments: MANAGEMENT OF PATIENT CARE PER NURSING PROTOCOL :41 Blood Glucose , Office (57546) Blood Glucose , Office 82 (Normal) :41 HgA1C , Office (46413) HgA1C , Office 5.8 % (Normal) Range: 4.6 - 7.1 :18 Anaerobic & Aerobic Comments: Right breast; PATIENT NOT FASTINGPERFORMED BY: [facility] Qkpley3911 [facility] [id number] Information: RIGHT BREAST SRC:BR Culture (81841) Result 1 Mixed skin remy (Normal) Aerobic Culture Final report (Normal) Result 1 NANG72 (Normal) Comments: No anaerobic growth in 72 hours. Anaerobic Culture Final report (Normal) 2-Pyn-569279:44 Urinalysis, Complete Comments: Order Date: 11/21/17How was Urine Obtained? [facility] [address] [place], [id number] MUCUS, URINE 0 SEEN {/hpf} (Normal) BACTERIA [...] COLOR Yellow (Normal) :12 HgA1C , Office (45695) HgA1C , Office 5.9 % (Normal) Range: 4.6 - 7.1 :12 Blood Glucose , Office (54017) Blood Glucose , Office 122 (Normal) Comments: not fasting :59 Microscopic Examination Comments: PATIENT WAS FASTINGPERFORMED BY: [facility] CenterMratuk6696 [facility] [id number] Bacteria None seen (Normal) Mucus Threads Present (Normal) Epithelial Cells (non renal) 0-10 {/hpf} (Normal) Range: 0 - 10 RBC 0-2 {/hpf} (Normal) Range: 0 - 2 WBC 0-5 {/hpf} (Normal) Range: 0 - 5 13-Xwc-857439:50 Urinalysis, Complete Comments: Order Date: 07/28/17How was Urine Obtained? [facility] [address] [place], [id number] MUCUS, URINE 0 SEEN {/hpf} (Normal) BACTERIA [...] (Normal) CLARITY Clear (Normal) COLOR Yellow (Normal) 36-Fbm-052003:01 Basic Metabolic Profile (BMP) Comments: [facility] [address] [place], [place], [address] GAP 8 (Normal) Range: 5-15 CO2 30.0 [...] A.D.A. criteria.Please note revised GLUCOSE reference range blgurdivj41/02/2018. 46-Gbz-599575:01 Bedside Glucose Comments: [facility] [address] [place] [address] BEDSIDE GLU 109 mg/dL (Normal) Range: 70-110 Comments: MANAGEMENT OF PATIENT CARE PER NURSING PROTOCOL 48-Eaq-031457:01 CBC W/Diff, Automated Comments: [facility] [address] [place], [id number] Absolute Lymph 1.03 {X10_3/ul} (Normal) Range: 0.83-4.51 [...] 4.2-5.4 WBC 5.6 K/mm3 (Normal) Range: 4.4-11.0 32-Ziv-74263:59 PARATHORMONE (83517) Comments: PATIENT WAS FASTINGPERFORMED BY: CB [facility] Bhtguw9265 [facility] [id number] PTH, Intact 22 pg/mL (Normal) Range: 15-65 :59 CALCIFIDIOL (09558) VIT D 25 Comments: PATIENT WAS FASTINGPERFORMED BY: [facility]6370 [facility] [id number] Vitamin D, 25-Hydroxy 60.4 ng/mL (Normal) Range: 30.0-100.0 Comments: Vitamin D deficiency has been defined by the [place] ofMedicine and an Endocrine Society practice guideline as alevel of serum 25-OH vitamin D less than 20 ng/mL (1,2).The Endocrine Society went on to further define vitamin Dinsufficiency as a level between 21 and 29 ng/mL (2).1. IOM ([place] of Medicine). 2010. Dietary reference intakes for calcium and D. [place]: The National Academies Press.2. Shelby MF, Sergio EAST, Anatoly MERCER, et al. Evaluation, treatment, and prevention of vitamin D deficiency: an Endocrine Society clinical practice guideline. JCEM. 2010; 96(7):1911-30. 20-Csm-13452:59 TSH (49030) Comments: PATIENT WAS FASTINGPERFORMED BY: [facility]6370 [facility] [id number] TSH 1.720 {uIU/mL} (Normal) Range: 0.450-4.500 :59 URINALYSIS, W/ MICRO (73179) Comments: PATIENT WAS FASTINGPERFORMED BY: [facility]6370 [facility] [id number] Microscopic Examination See below: (Normal) Comments: Microscopic was indicated and was performed. Nitrite, Urine Negative (Normal) Urobilinogen,Semi-Qn 0.2 mg/dL (Normal) Range: 0.2-1.0 Bilirubin Negative (Normal) Occult Blood Negative (Normal) Ketones Negative (Normal) Glucose Negative (Normal) Protein Negative (Normal) WBC Esterase Trace (Abnormal) Appearance Clear (Normal) Urine-Color Yellow (Normal) pH 6.0 (Normal) Range: 5.0-7.5 Specific [place] 1.017 (Normal) Range: 1.005-1.030 :59 MICROALBUMIN: CREATININE RATIO Comments: PATIENT WAS FASTINGPERFORMED BY: [facility] CenterKhphfa4241 [facility] [id number] (59198) AND (23174) Alb/Creat Ratio 8.7 {mg/g_creat} (Normal) Range: 0.0-30.0 Albumin, Urine 6.7 ug/mL (Normal) Creatinine, Urine 76.6 mg/dL (Normal) :59 METABOLIC PANEL, COMPREHENSIVE Comments: PATIENT WAS FASTINGPERFORMED BY: [facility] Uttynp4673 [facility] [id number] (13362) ALT (SGPT) 21 [iU]/L (Normal) Range: 0-32 [...] 8-27 Glucose 93 mg/dL (Normal) Range: 65-99 16-Zyk-19392:59 LIPID PANEL (33974) Comments: PATIENT WAS FASTINGPERFORMED BY: [facility]6370 [facility] [id number] LDL/HDL Ratio 2.3 {ratio} (Normal) Range: 0.0-3.2 [...] Range: 100-199 :59 CBC W/AUTO DIFF WBC (03590) Comments: PATIENT WAS FASTINGPERFORMED BY: TEEspylin6370 [facility] [id number]; ov 10/05 Immature Grans (Abs) 0.0 {x10E3/uL} [...] (Normal) Range: 3.4-10.8 :02 HgA1C , Office (58893) HgA1C , Office 5.6 % (Normal) Range: 4.6 - 7.1 :02 Blood Glucose , Office (47547) Blood Glucose , Office 118 (Normal) :38 HgA1C , Office (07719) HgA1C , Office 5.7 % (Normal) Range: 4.6 - 7.1 :38 Blood Glucose , Office (44440) Blood Glucose , Office 90 (Normal) 5-Mue-846447:20 Microscopic Examination Comments: PATIENT WAS FASTINGPERFORMED BY: [facility] Rbkacu5909 [facility] [id number] Bacteria Few (Normal) Mucus Threads Present (Normal) Epithelial Cells (non 0-10 {/hpf} (Normal) Range: 0 - 10 renal) RBC None seen {/hpf} Range: 0 - 2 (Normal) WBC 0-5 {/hpf} (Normal) Range: 0 - 5 : COLON BIOPSY (CHOOSE See Note (Normal) Comments: [facility] Wrucknejyr7488 [facility] [place], [address] 42 SITE) Comments: Patient: JOSELUIS MCKAY : 1945 (72/F) Acct Num: [id number] Phys: Kylah FLORES,Cruz Unit Num: [id number] Loc: [facility] Specimen: [id number] Received: 01/12/17 - 0412 Spec Type : COLON BX TISSUES TISSUES: GROSS DESCRIPTION Received in fixative is one container labeled with the patient's name and designated mid sigmoid polyp. The specimen consists of one i rregular fragmentof light harris soft tissue that measures 0.2 x 0.2 x 0.1 cm. The specimen is totally submitted in one cassette. / SJ:zach 01/12/17 TC:5 CPT: 88028 HEADER OPERATION: Colonoscopy P RE-OP DIAGNOSIS: History of polyps TISSUE SUBMITTED: Mid sigmoid polyp MICROSCOPIC DESCRIPTION Slides are reviewed. MICROSCOPIC DIAGNOSIS Mid sigmoid polyp, biopsy: Hyperplastic poly p. AM:zach 01/13/17 Signed Carlos Manuel Na 01/13/17 <signature on file> 21-Puo-925475:34 Bedside Glucose Comments: [facility] LaboratoryPoint of [address]cm[address] [place], [place] [address] BEDSIDE GLU 94 mg/dL (Normal) Range: 70-110 Comments: MANAGEMENT OF PATIENT CARE PER NURSING PROTOCOL 8-Fby-171637:20 URINALYSIS, W/ MICRO (20311) Comments: PATIENT WAS FASTINGPERFORMED BY: [facility]iiAt[facility] [id number] Microscopic Examination See below: (Normal) Comments: Microscopic was indicated and was performed. Nitrite, Urine Negative (Normal) Urobilinogen,Semi-Qn 0.2 mg/dL (Normal) Range: 0.2-1.0 Bilirubin Negative (Normal) Occult Blood Negative (Normal) Ketones Negative (Normal) Glucose Negative (Normal) Protein Negative (Normal) WBC Esterase 1+ (Abnormal) Appearance Clear (Normal) Urine-Color Yellow (Normal) pH 6.5 (Normal) Range: 5.0-7.5 Specific [place] 1.008 (Normal) Range: 1.005-1.030 9-Pzb-830872:20 MICROALBUMIN: CREATININE RATIO Comments: PATIENT WAS FASTINGPERFORMED BY: [employer] [facility]Livemap[facility] [id number] (28230) AND (03744) Microalb/Creat Ratio 11.5 {mg/g_creat} (Normal) Range: 0.0-30.0 Microalbumin, Urine 3.7 ug/mL (Normal) Creatinine, Urine 32.3 mg/dL (Normal) 8-Oqv-209509:20 METABOLIC PANEL, COMPREHENSIVE Comments: PATIENT WAS FASTINGPERFORMED BY: [facility] [id number] (21758) ALT (SGPT) 27 [iU]/L (Normal) Range: 0-32 [...] Glucose, Serum 78 mg/dL (Normal) Range: 65-99 4-Ukv-984404:20 TSH (06381) Comments: PATIENT WAS FASTINGPERFORMED BY: [facility] [id number] TSH 22.910 {uIU/mL} (Abnormal) Range: 0.450-4.500 8-Xof-598543:20 JQCPU-MDKZGKSVXYP-OMUXL (56616) Comments: PATIENT WAS FASTINGPERFORMED BY: HypericDublin [place] [id number] AFP, Serum, Tumor Marker 1.6 ng/mL (Normal) Range: 0.0-8.3 Comments: Suzanne ECLIA methodology 1-Nrg-972348:20 CALCIFEDIOL (42339) Comments: PATIENT WAS FASTINGPERFORMED BY: [facility]Det[facility]6370 [facility] [id number] Vitamin D, 25-Hydroxy 47.7 ng/mL (Normal) Range: 30.0-100.0 Comments: Vitamin D deficiency has been defined by the [place] of[place]icine and an Endocrine Society practice guideline as alevel of serum 25-OH vitamin D less than 20 ng/mL (1,2).The Endocrine Society went on to further define vitamin Dinsufficiency as a level between 21 and 29 ng/mL (2).1. IOM ([place] of Medicine). 2010. Dietary reference intakes for calcium and D. [place]: The National Academies Press.2. Shelby MF, Sergio EAST, Anatoly MERCER, et al. Evaluation, treatment, and prevention of vitamin D deficiency: an Endocrine Society clinical practice guideline. JCEM. 2010; 96(7):1911-30. 6-Hkw-668077:20 LIPID PANEL (39224) Comments: PATIENT WAS FASTINGPERFORMED BY: [facility]in6370 [facility] [id number] LDL/HDL Ratio 2.4 {ratio_units} (Normal) Range: 0.0-3.2 Comments: LDL/HDL Ratio Men Women 1/2 Avg.Risk 1.0 1.5 Av g.Risk 3.6 3.2 2X Avg.Risk 6.2 5.0 3X Avg.Risk 8.0 6.1 LDL Cholesterol Calc 147 mg/dL (Abnormal) Range: 0-99 VLDL Cholesterol Tab 34 mg/dL (Normal) Range: 5-40 HDL Cholesterol 61 mg/dL (Normal) Triglycerides 172 mg/dL (Abnormal) Range: 0-149 Cholesterol, Total 242 mg/dL (Abnormal) Range: 100-199 8-Eso-634893:20 CBC W/AUTO DIFF WBC (75286) Comments: PATIENT WAS FASTINGPERFORMED BY: LabCoEnglewood Hospital and Medical CenterIolusb9682 [facility] [id number] Immature Grans (Abs) 0.0 {x10E3/uL} (Normal) Range: [...] (Normal) Range: 3.4-10.8 :06 HgA1C , Office (43776) HgA1C , Office 5.5 % (Normal) Range: 4.6 - 7.1 :06 Blood Glucose , Office (94138) Blood Glucose , Office 122 (Normal) 8-Hku-666725:49 Comprehensive Metabolic Profil Comments: [facility] L[address]aptpa[address] [place], [address] GAP 7 (Normal) Range: 5-15 CO2 29.0 [...] <126 mg/dLsuggests IMPAIRED HOMEOSTASIS per A.D.A. criteria. 5-Vhq-396077:49 Magnesium Comments: [facility] [address] [place], [address] MG 2.0 mg/dL (Normal) Range: 1.8-2.4 6-Att-363901:49 Thyroid Stim Hormone (TSH) Comments: [facility] Y[address] [place], [place], [address](795) TSH 3.30 {uIU/mL} (Normal) Range: 0.358-3.74 2-Hnx-647881:49 Vitamin D,25 Hydroxy Comments: [facility] T[address]qefwhp[address] [place], [address] Vitamin D 25-OH 32.0 ng/mL (Normal) Comments: Vitamin D 25(OH) Status Range Deficiency <20 ng/mL (50nmol/L) Insuffciency 20 - 30 ng/mL (50 - 75 nmol/L) Sufficiency 30 - 100 ng/mL (75 - 250 nmol/L) Toxicity >100 ng/mL (>250 nmol/L) 0-Bdf-687587:20 HgA1C , Office (06001) HgA1C , Office 5.7 % (Normal) Range: 4.6 - 7.1 9-Cdw-578152:20 Blood Glucose , Office (04466) Blood Glucose , Office 74 (Normal) 85-Vkh-927001:26 Culture, Aerobic, Comments: PATIENT NOT FASTINGPERFORMED BY: [facility] Wqrtcz9364 [facility] [id number] Information: RIGHT THUMB SRC:RU Bacterial ID ([id number]) Result 2 BETAGB (Abnormal) Comments: Beta hemolytic [...] Meropenem Aerobic Bacterial Final report (Abnormal) Culture 63-Hbs-830673:27 HgA1C , Office (85990) HgA1C , Office 5.7 % (Normal) Range: 4.6 - 7.1 53-Fty-933913:27 Blood Glucose , Office (72679) Blood Glucose , Office 84 (Normal) 20-Hgu-428539:30 CALCIFEDIOL (32297) Comments: PATIENT NOT FASTINGPERFORMED BY: [facility] Glplhu0631 Mistyr RoadDublin [place] [id number] Vitamin D, 25-Hydroxy 37.5 ng/mL (Normal) Range: 30.0-100.0 Comments: Vitamin D deficiency has been defined by the [place] of[facility] Hospitalcine and an Endocrine Society practice guideline as alevel of serum 25-OH vitamin D less than 20 ng/mL (1,2).The Endocrine Society went on to further define vitamin Dinsufficiency as a level between 21 and 29 ng/mL (2).1. IOM ([place] of Medicine). 2010. Dietary reference intakes for calcium and D. [place]: The National Academies Press.2. Shelby MF, Sergio EAST, Anatoly MERCER, et al. Evaluation, treatment, and prevention of vitamin D deficiency: an Endocrine Society clinical practice guideline. JCEM. 2010; 96(7):1911-30. 19-Kwv-892279:30 T4, FREE (THYROXINE) (67633) Comments: PATIENT NOT FASTINGPERFORMED BY: CB [facility] Rvbwdn1765 Mistry RoadDublin [place] [id number] T4,Free(Direct) 1.75 ng/dL (Normal) Range: 0.82-1.77 83-Xbt-646987:30 TSH (45781) Comments: PATIENT NOT FASTINGPERFORMED BY: CB [facility] Iutyyn6653 [address]istry RoadDublin [place] [id number] TSH 0.795 {uIU/mL} (Normal) Range: 0.450-4.500 89-Jml-802688:30 Metabolic Panel, Comments: PATIENT NOT FASTINGPERFORMED BY: [facility] Adbvdq7[address] [place] [id number] Information: [id number] Comprehensive (68071) ALT (SGPT) 26 [iU]/L (Normal) Range: 0-32 [...] Comments: Order Date: 01/24/16How was Urine Obtained? [facility] Uyaascfagf[address] [place], [id number] MUCUS, URINE 0 SEEN {/hpf} (Normal) BACTERIA [...] (Normal) :47 Urine Drug Screen (VISTA) Comments: [facility] Pqkfxyiyde2994 [facility] [place], [address] THC NEGATIVE (Normal) PCP NEGATIVE [...] TESTING MUST BE ORDERED SEPARATELY. USE TESTMNEMONIC: [facility] 5-Txi-682435:17 Alcohol, Blood (Medical)-Serum Comments: [facility] Uivebuzkuk1505 [facility] [place], [address] SERUM ETOH 11.0 mg/dL (Normal) Comments: The serum:whole blood ethanol ratio is approximately 1.14and varies slightly with hematocrit.Medical Alcohol reference interval and critical value innon-tolerant individuals; 50 - 100 Impairment 100 Intoxication 100 - 250 Severe Poisoning 250 - 400 Deep/possible fatal coma 1-Yrp-723009:17 Basic Metabolic Profile (BMP) Comments: [facility] [address]wyy[address] [place], [place], [address] GAP 7 (Normal) Range: 5-15 CO2 30.0 [...] 7-18 GLU 85 mg/dL (Normal) Range: 70-110 6-Rmh-909662:17 CBC W/Diff, Automated Comments: [facility] K[address]ucxr[address] [place], [place], [address] Absolute Lymph 1.58 {X10_3/ul} (Normal) Range: 0.83-4.51 [...] 4.4-11.0 :17 Thyroid Stim Hormone (TSH) Comments: [facility] Qxzbgdybvl6941 [facility] [address] [place], [place], [address] TSH 6.50 {uIU/mL} (Abnormal) Range: 0.358-3.74 :54 T4 Free Direct Comments: [facility] Rcviplaofo8810 [facility] [address] [place], [place], [address] T4 FREE DIRECT 1.03 ng/dL (Normal) Range: 0.76-1.46 :54 Thyroid Stim Hormone (TSH) Comments: [facility] [address] [place], [place], [address] TSH 6.21 {uIU/mL} (Abnormal) Range: 0.358-3.74 42-Njr-216774:47 TSH (THYROID STIMULATING Comments: PATIENT NOT FASTINGPERFORMED BY: LabCoEnglewood Hospital and Medical CenterXdhpbx0236 [address] [place] [id number] Information: [id number] HORMONE) (53419) TSH 12.540 {uIU/mL} (Abnormal) Range: 0.450-4.500 :08 Comprehensive Metabolic Profil Comments: [facility] [address] [place], [place], [address]) GAP 6 (Normal) Range: 5-15 CO2 28.0 [...] <126 mg/dLsuggests IMPAIRED HOMEOSTASIS per A.D.A. criteria. 75-Iad-205059:08 Free T3 Comments: [facility] T[address] [place], [address](419) FREE T3 1.7 pg/mL (Abnormal) Range: 2.18-3.98 :08 Magnesium Comments: [facility] X[address] [place], [address] MG 2.0 mg/dL (Normal) Range: 1.8-2.4 :08 T4 Free Direct Comments: [facility] Clxyzwijyp4078 [address] [place], [address] T4 FREE DIRECT 1.01 ng/dL (Normal) Range: 0.76-1.46 :08 Thyroid Stim Hormone (TSH) Comments: [facility] Yhshgsqiam2838 [address] [place], [address] TSH 4.70 {uIU/mL} (Abnormal) Range: 0.358-3.74 :08 Vitamin D,25 Hydroxy Comments: [facility] Yymjmkmyvg9327 [address] [place], [address] Vitamin D 25-OH 38.3 ng/mL (Normal) Comments: Vitamin D 25(OH) Status Range Deficiency <20 ng/mL (50nmol/L) Insuffciency 20 - 30 ng/mL (50 - 75 nmol/L) Sufficiency 30 - 100 ng/mL (75 - 250 nmol/L) Toxicity >100 ng/mL (>250 nmol/L) :03 CALCIFEDIOL (55978) Comments: PATIENT NOT FASTINGPERFORMED BY: [facility]6370 [facility] [id number] Vitamin D, 25-Hydroxy 38.4 ng/mL (Normal) Range: 30.0-100.0 Comments: Vitamin D deficiency has been defined by the [place] of[facility] Hospitalcine and an Endocrine Society practice guideline as alevel of serum 25-OH vitamin D less than 20 ng/mL (1,2).The Endocrine Society went on to further define vitamin Dinsufficiency as a level between 21 and 29 ng/mL (2).1. IOM ([place] of Medicine). 2010. Dietary reference intakes for calcium and D. [place]: The National Academies Press.2. Shelby MF, Sergio EAST, Anatoly MERCER, et al. Evaluation, treatment, and prevention of vitamin D deficiency: an Endocrine Society clinical practice guideline. JCEM. 2010; 96(7):1911-30. :03 T4, FREE (THYROXINE) Comments: PATIENT NOT FASTINGPERFORMED BY: [facility]6370 [facility] [id number] Information: [id number] (34970) T4,Free(Direct) 1.08 ng/dL (Normal) Range: 0.82-1.77 :03 T3, FREE (TRIDOTHYRONINE) (99894) Comments: PATIENT NOT FASTINGPERFORMED BY: [facility]6370 [facility] [id number] Triiodothyronine,Free,Serum 2.2 pg/mL (Normal) Range: 2.0-4.4 :03 TSH (55873) Comments: PATIENT NOT FASTINGPERFORMED BY: [facility]6370 [facility] [id number] TSH 25.300 {uIU/mL} (Abnormal) Range: 0.450-4.500 :10 Urinalysis, Complete Comments: How was Urine Obtained? [facility] Ixkdzdvcrj0402 [facility] [place], [place], [address] ; managed by another doctor MUCUS, URINE [...] Serial specimen #1, #2, #3, or #4: 1[facility] [address]vyaquvth[address] [place], [place], [address] GAP 1 (Abnormal) Range: 5-15 CO2 29.0 [...] 7-18 GLU 108 mg/dL (Normal) Range: 70-110 1-Vim-781990:30 CBC W/Diff, Automated Comments: [facility] Y[address]unwzfod[address] [place], [place], [address] Absolute Lymph 1.66 {X10_3/ul} (Normal) Range: 0.83-4.51 [...] 4.2-5.4 WBC 5.7 K/mm3 (Normal) Range: 4.4-11.0 8-Qec-028210:30 Troponin-I Comments: 'TROP' Serial specimen #1, #2, #3, or #4: [address] [place] [address] [address] [place], [place], [address] TROPONIN-I < 0.02 ng/mL (Normal) Comments: TROPONIN-I EXPECTED VALUES <0.05 NEGATIVE 0.06 - 0.59 AT RISK OF [place] > OR = 0.60 SUGGEST [place] 46-Ega-297872:20 Pap IG, HPV-hr Comments: No. of containers..01 CYTYC Thin Prep VialPERFORMED BY: WB [facility] Xrmqwnstly459 [facility] [id number] BY: =G [facility] Prgcclokga424 [facility] [id number] Information: [id number] HPV, high-risk Negative Comments: This high-risk HPV [...] PRESENT.THIS SPECIMEN WAS RESCREENED PART OF OUR DIRECTOR OF CASEWORK SERVICES PROGRAM.Satisfactory for evaluation. (Normal) Endocervical component may not bedistinguished in cases of atrophy.Areas of partially obscuring inflammtory exudate are present.Z11.51Z12.4Temo Holliday, Psychological Operations Specialist (ASCP)Bernadine Camargo, Psychological Operations Specialist (ASCP) 16-September Please note SPRCS Comments: No. of containers..01 CYTYC Thin Prep VialPERFORMED BY: [employer] [place] [address] W [id number] BY: =G LabIronPort SystemsQcrifrxfys8[address] W [id number] - (Normal) Comments: We have received your request for additional testing or testverification. You will be notified if we are unable to processyour request. 0:20 -September Written COMMNT Comments: No. of containers..01 CYTYC Thin Prep VialPERFORMED BY: [employer] [place] [address] W [id number] BY: =G LabWizIQrp Hjvqsicvbn868 [facility] W [id number] Authoriz RCV (Normal) Comments: Written Authorization Received.AUTHORIZATION SIGNED ROSA ISELA SWEET ON 10/11/2015 0:20 :49 OVA & PARASITE DIR SMEAR Comments: PATIENT NOT FASTINGPERFORMED BY: [facility]6370 [facility] [id number] (83217) Result 1 NOCP (Normal) Comments: No ova, cysts, or parasites seen. Ova + Parasite Exam Final report (Normal) Comments: These results were obtained using wet preparation(s) and trichromestained smear. This test does not include testing for Cryptosporidiumparvum, Cyclospora, or Microsporidia. 10-Whe-508300:49 OCCULT BLOOD FECES SCREEN Comments: PATIENT NOT FASTINGPERFORMED BY: [address] [id number] (37596) Occult Blood, Fecal, IA Negative (Normal) 97-Eez-583226:49 LEUKOCYTE COUNT, FECAL Comments: PATIENT NOT FASTINGPERFORMED BY: [address] [id number] (44412) Result 1 NWBC (Normal) Comments: No white blood cells seen. White Blood Cells (WBC), Final report (Normal) Stool 99-Gpm-856245:50 C-DIFFICILE, STOOL (43423) Comments: PATIENT NOT FASTINGPERFORMED BY: [address] [id number] Information: [id number] C difficile Toxins A+B, EIA Negative (Normal) :49 RUBENS CULTURE-STOOL (04270) Comments: PATIENT NOT FASTINGPERFORMED BY: [address] [id number] Information: SRC:STL P12885 E coli Shiga Toxin EIA Negative (Normal) Result 1 NCI (Normal) Comments: No Campylobacter species isolated. Campylobacter Culture Final report (Normal) Result 1 NSS (Normal) Comments: No Salmonella or Shigella recovered. Salmonella/Shigella Screen Final report (Normal) 2-Gmb-578308:42 Calcium Ionized Comments: [facility] (refer to report for specific site)refer to report for address and phone number [place] [address] 4.8 mg/dL (Normal) Range: 4.5-5.6 Comments: Performed at: [address] [id number] Director: Rocky Dudley PhD, Phone: [phone] 23-Zse-653587:17 URINE RUBENS CULTURE-JAYDEN COL Comments: PATIENT NOT FASTINGPERFORMED BY: [address] [id number] Information: SRC:URC P54231 COUNT (75511) Result 1 MUG (Normal) Comments: Mixed urogenital flora4,000 Colonies/mL Urine Culture,Comprehensive Final report (Normal) :18 PT (PROTHROMBIN TIME) (23767) Comments: PATIENT NOT FASTINGPERFORMED BY: kidthingDetroit [facility]ceiving Hospital6370 [facility] [id number] Prothrombin Time 10.1 {sec} (Normal) Range: 9.1-12.0 INR 1.0 (Normal) Range: 0.8-1.2 Comments: Reference interval is for non-anticoagulated patients. . Suggested INR therapeutic range for Vitamin K anta gonist therapy: Standard Dose (moderate intensity therapeutic range): 2.0 - 3.0 Higher intensity therapeutic range 2.5 - 3.5 :18 CBC, Platelets & Auto Comments: PATIENT NOT FASTINGPERFORMED BY: LabCoEnglewood Hospital and Medical CenterLnshgp3238 [facility] [id number] Information: [id number] Diff (94513) Immature Grans (Abs) 0.0 {x10E3/uL} (Normal) Range: [...] Panel, Basic Comments: PATIENT NOT FASTINGPERFORMED BY: LabCoEnglewood Hospital and Medical CenterIxnjqn9572 [facility] [id number] (65256) Calcium, Serum 10.5 mg/dL (Abnormal) Range: 8.7-10.3 [...] Glucose, Serum 76 mg/dL (Normal) Range: 65-99 43-Tzo-425037:40 Blood Glucose , Office (97809) Blood Glucose , Office 112 (Normal) 13-Jfi-976037:40 HgA1C , Office (67838) HgA1C , Office 5.6 % (Normal) Range: 4.6 - 7.1 93-Tpt-349611:49 Urinalysis, Office (92530) UA - LEUKOCYTE ESTERASE Small (Normal) UA - NITRITE Negative (Normal) URINE UROBILINGN JAYDEN TIMED Normal mg/dL (Normal) UA - PROTEIN Negative mg/dL (Normal) UA - PH 6 (Abnormal) UA - BLOOD Negative (Normal) UA - SPECIFIC GRAVITY 1.030 (Abnormal) UA - KETONES Negative mg/dL (Normal) UA - BILIRUBIN Negative (Normal) UA - GLUCOSE Negative (Normal) 3-Qjj-680214:00 Basic Metabolic Profile (BMP) Comments: [facility] [address] [place], [place], [address] GAP 6 (Normal) Range: 5-15 CO2 28.0 [...] 7-18 GLU 89 mg/dL (Normal) Range: 70-110 0-Hpx-038279:33 CALCIFIDIOL (48168) VIT D 25 Comments: fax copy to Dr. Mitchell [phone]; PATIENT NOT FASTINGPERFORMED BY: [place] 1792670 [facility] [id number] Vitamin D, 25-Hydroxy 34.2 ng/mL (Normal) Range: 30.0-100.0 Comments: Vitamin D deficiency has been defined by the [place] of[facility]cine and an Endocrine Society practice guideline as alevel of serum 25-OH vitamin D less than 20 ng/mL (1,2).The Endocrine Society went on to further define vitamin Dinsufficiency as a level between 21 and 29 ng/mL (2).1. IOM ([place] of Medicine). 2010. Dietary reference intakes for calcium and D. [place]: The National Academies Press.2. Shelby MF, Sergio [place], Anatoly MERCER, et al. Evaluation, treatment, and prevention of vitamin D deficiency: an Endocrine Society clinical practice guideline. JCEM. 2010; 96(7):1911-30. 9-Cit-368779:33 PTH (PARATHORMONE) (34189) Comments: fax copy to Dr. Mitchell [phone]; PATIENT NOT FASTINGPERFORMED BY: [facility]6370 [facility] [id number] PTH, Intact 67 pg/mL (Abnormal) Range: 15-65 1-Cyw-084950:33 Metabolic Panel, Comments: fax to Dr. Mitchell fax [phone]; PATIENT NOT FASTINGPERFORMED BY: Be[employer]Guest6370 [facility] [id number] Information: [id number], [id number] Comprehensive (51348) ALT (SGPT) 17 [iU]/L (Normal) Range: 0-32 [...] 6.2 mg/dL Comments: PATIENT NOT FASTINGPERFORMED BY: [place] 1792670 [facility] [id number] :11 (Abnormal) Range: 4.5-5.6 PTH, Intact 59 pg/mL (Normal) Comments: PATIENT NOT FASTINGPERFORMED BY: [place] 1792670 [facility] [id number] :11 Range: 15-65 Thyroxine (T4) 8.6 ug/dL (Normal) Comments: PATIENT NOT FASTINGPERFORMED BY: [place] 1792670 [facility] [id number] :11 Range: 4.5-12.0 Triiodothyronine (T3) 96 ng/dL (Normal) Comments: PATIENT NOT FASTINGPERFORMED BY: [address] [id number] :11 Range: 71-180 TSH 0.985 {uIU/mL} Comments: PATIENT NOT FASTINGPERFORMED BY: [place] 1792670 [facility] [id number] Information: [id number] :11 (Normal) Range: 0.450-4.500 :27 HgA1C , Office (96521) HgA1C , Office 6.0 % (Normal) Range: 4.6 - 7.1 :27 Blood Glucose , Office (68029) Blood Glucose , Office 168 (Normal) Comments: already ate today :54 Basic Metabolic Panel (8) Comments: PATIENT NOT FASTINGPERFORMED BY: [address] [id number] Information: [id number] Calcium, Serum 10.5 mg/dL (Abnormal) Range: 8.7-10.3 [...] (Normal) Range: 65-99 :18 HgA1C , Office (84894) HgA1C , Office 5.8 % (Normal) Range: 4.6 - 7.1 :18 Blood Glucose , Office (99941) Blood Glucose , Office 74 (Normal) 27-Hvj-946775:42 Culture, Urine Comments: Test performed at:[facility] Vkqyrcbloa1054 [facility] [place] [address] CUUR See Note (Normal) Comments: [...] $ 1 S(NF) indicates non-formulary drug at [facility]. Approval by Infectious Disease Specialist required before non-formulary drugs may be or dered and/or dispensed. * CLSI guidelines does not recommend testing of cephalosporins. This interpretation is deduced from Beta-lactam/penicillin results. :42 Urinalysis, Routine (Dipstick) Comments: How was Urine Obtained? CLEAN CATCHTest performed at:[facility] Dedhnqcvnh7014 [facility] [place] [address] LEUK ESTERASE 500 /ul (Abnormal) OCCULT BLOOD-UR Negative /ul (Normal) NITRITE UR Negative (Normal) UROBILI Normal mg/dL (Normal) PROT DIPSTX Negative mg/dL (Normal) pH UR 5.0 (Normal) Range: 5.0 - 8.0 SP.GR. DIPSTX 1.025 (Normal) Range: 1.002-1.030 KETONE UR Negative mg/dL (Normal) BILIRUBIN URINE Negative mg/dL (Normal) GLUCOSE, UR Normal mg/dL (Normal) CLARITY Sl. Cloudy (Normal) COLOR Yellow (Normal) 68-Dzb-793275:01 Bedside Glucose Comments: Test performed at:[facility] Uncpfbclct[address] [place] [address] 135[address] BEDSIDE GLU 94 mg/dL (Normal) Range: 70-110 Comments: Policy and Physicians Orders followedMANAGEMENT OF PATIENT CARE PER NURSING PROTOCOL 9-Wgc-337683:45 Culture, Urine Comments: Test performed at:[facility] [address] [place] [address] 40417 CUUR See Note (Normal) Comments: Urine CultureORGANISM [...] $ <=20 S(NF) indicates non-formulary drug at [facility]. Approval by Infectio us Disease Specialist required before non-formulary drugs may be ordered and/or dispensed. 6-Xto-581923:45 Urinalysis, Routine (Dipstick) Comments: How was Urine Obtained? CLEAN CATCHTest performed at:[facility] [address] [place] [address] 44691 LEUK ESTERASE 25 /ul (Abnormal) OCCULT BLOOD-UR 150 /ul (Abnormal) NITRITE UR Negative (Normal) UROBILI Normal mg/dL (Normal) PROT DIPSTX Negative mg/dL (Normal) pH UR 6.0 (Normal) Range: 5.0 - 8.0 SP.GR. DIPSTX 1.015 (Normal) Range: 1.002-1.030 KETONE UR Negative mg/dL (Normal) BILIRUBIN URINE Negative mg/dL (Normal) GLUCOSE, UR Normal mg/dL (Normal) CLARITY Clear (Normal) COLOR Yellow (Normal) 8-Qkl-561592:12 Microscopic Examination Comments: PATIENT WAS FASTINGPERFORMED BY: [facility]ainersHigh[facility] [id number] Bacteria Few (Normal) Mucus Threads Present (Normal) Epithelial Cells (non renal) 0-10 {/hpf} (Normal) Range: 0 - 10 RBC 0-2 {/hpf} (Normal) Range: 0 - 2 WBC 6-10 {/hpf} (Abnormal) Range: 0 - 5 5-Zdj-741118:09 Urinalysis, Office (32774) UA - LEUKOCYTE ESTERASE Small (Normal) UA - NITRITE Negative (Normal) URINE UROBILINGN JAYDEN TIMED Normal mg/dL (Normal) UA - PROTEIN Negative mg/dL (Normal) UA - PH 7 (Normal) UA - BLOOD Hemolyzed Trace (Normal) UA - SPECIFIC GRAVITY 1.020 (Normal) UA - KETONES Negative mg/dL (Normal) UA - BILIRUBIN Negative (Normal) UA - GLUCOSE Negative (Normal) :53 HgA1C , Office (98459) HgA1C , Office 6.1 % (Normal) Range: 4.6 - 7.1 :53 Blood Glucose , Office (85520) Blood Glucose , Office 100 (Normal) 2-Lth-644259:07 Urinalysis, Office (89114) UA - LEUKOCYTE ESTERASE Small (Normal) UA - NITRITE Negative (Normal) URINE UROBILINGN JAYDEN TIMED Normal mg/dL (Normal) UA - PROTEIN 100 mg/dL (Normal) UA - PH 6.5 (Normal) UA - BLOOD ++ (Abnormal) UA - SPECIFIC GRAVITY 1.025 (Normal) UA - KETONES Negative mg/dL (Normal) UA - BILIRUBIN Negative (Normal) UA - GLUCOSE Negative (Normal) 47-Uma-211107:06 URINE RUBENS CULTURE-IDENTIFICATN Comments: PATIENT NOT FASTINGPERFORMED BY: NambiiAtrium Health Pineville [id number] Information: [id number] (68896) Result 1 MUG (Normal) Comments: Mixed urogenital flora1,000 Colonies/mL Urine Culture,Comprehensive Final report (Normal) 62-Cun-165961:43 Urinalysis, Office (05176) UA - LEUKOCYTE ESTERASE Large (Normal) UA - NITRITE Negative (Normal) URINE UROBILINGN JAYDEN TIMED 2 mg/dL (Normal) UA - PROTEIN Negative mg/dL (Normal) UA - PH 6.0 (Normal) UA - BLOOD Hemolyzed Large (Normal) UA - SPECIFIC GRAVITY 1.015 (Normal) UA - KETONES Negative mg/dL (Normal) UA - BILIRUBIN Negative (Normal) UA - GLUCOSE Negative (Normal) 7-Zxn-027304:12 TSH (21529) Comments: PATIENT WAS FASTINGPERFORMED BY: [employer]6[address] [facility] [id number] TSH 1.070 {uIU/mL} (Normal) Range: 0.450-4.500 6-Tbr-920087:12 URINALYSIS, W/ MICRO (31229) Comments: PATIENT WAS FASTINGPERFORMED BY: SolAeroMed70 [facility] [id number] Microscopic Examination See below: (Normal) Comments: Microscopic was indicated and was performed. Microscopic Examination MICRON (Normal) Comments: Microscopic follows if indicated. Nitrite, Urine Negative (Normal) Urobilinogen,Semi-Qn 0.2 mg/dL (Normal) Range: 0.0-1.9 Bilirubin Negative (Normal) Occult Blood Negative (Normal) Ketones Negative (Normal) Glucose Negative (Normal) Protein Negative (Normal) WBC Esterase Negative (Normal) Appearance Clear (Normal) Urine-Color Yellow (Normal) pH 7.0 (Normal) Range: 5.0-7.5 Specific [place] 1.015 (Normal) Range: 1.005-1.030 3-Iyb-249783:12 METABOLIC PANEL, COMPREHENSIVE Comments: PATIENT WAS FASTINGPERFORMED BY: [employer]70 [facility] [id number] (53900) ALT (SGPT) 20 [iU]/L (Normal) Range: 0-32 [...] Glucose, Serum 86 mg/dL (Normal) Range: 65-99 8-Fjg-568290:12 LIPID PANEL (85200) Comments: PATIENT WAS FASTINGPERFORMED BY: [facility] Bqfgsj0550 [facility] [id number] LDL/HDL Ratio 2.0 {ratio_units} (Normal) Range: 0.0-3.2 [...] Cholesterol, Total 192 mg/dL (Normal) Range: 100-199 5-Zqn-829360:12 CBC W/AUTO DIFF WBC Comments: PATIENT WAS FASTINGPERFORMED BY: LabCoEnglewood Hospital and Medical CenterVhvbqg1557 [facility] [id number] Information: [id number] (80611) Immature Grans (Abs) 0.0 {x10E3/uL} (Normal) Range: [...] (Normal) Range: 3.4-10.8 :57 HgA1C , Office (85501) HgA1C , Office 5.7 % (Normal) Range: 4.6 - 7.1 :57 Blood Glucose , Office (55485) Blood Glucose , 91 (Normal) Office : B12 434 pg/mL (Normal) Range: 211-911 28 : WASTE BALER 112 ug/dL (Normal) Range: 72-166 28 Comments: Detection Limit = 5Performed at: [facility] [address] [id number] Director: Heladio Schaffer MD, Phone: [phone] : VITD 37.9 mg/mL (Normal) Comments: Vitamin D 25(OH) Status RangeDeficiency <20 ng/mL (50nmol/L)Insuffciency 20 - 30 ng/mL (50 - 75 nmol/L)Sufficiency 30 - 100 ng/mL (75 - 250 28 nmol/L)Toxicity >100 ng/mL (>250 nmol/L) :22 Microscopic Examination Comments: PATIENT WAS FASTINGPERFORMED BY: LabCoEnglewood Hospital and Medical CenterYosbue4809 [facility] [id number] Bacteria Few (Normal) Mucus Threads Present (Normal) Crystal Type Calcium Oxalate (Normal) Crystals Present (Abnormal) Epithelial Cells (non renal) 0-10 {/hpf} (Normal) Range: 0 - 10 RBC 3-10 {/hpf} (Abnormal) Range: 0 - 2 WBC 0-5 {/hpf} (Normal) Range: 0 - 5 :39 HgA1C , Office (42487) HgA1C , Office 5.7 % (Normal) Range: 4.6 - 7.1 :39 Blood Glucose , Office (49604) Blood Glucose , Office 106 (Normal) Comments: non fasting :02 CALCIFIDIOL (59098) VIT D 25 Comments: PATIENT WAS FASTINGPERFORMED BY: [facility]thingDet[facility] Hospital6370 [facility] [id number] Vitamin D, 25-Hydroxy 29.8 ng/mL (Abnormal) Range: 30.0-100.0 Comments: Vitamin D deficiency has been defined by the [place] ofMedicine and an Endocrine Society practice guideline as alevel of serum 25-OH vitamin D less than 20 ng/mL (1,2).The Endocrine Society went on to further define vitamin Dinsufficiency as a level between 21 and 29 ng/mL (2).1. IOM ([place] of Medicine). 2010. Dietary reference intakes for calcium and D. [place]: The National Academies Press.2. Shelby MF, Sergio EAST, Anatoly MERCER, et al. Evaluation, treatment, and prevention of vitamin D deficiency: an Endocrine Society clinical practice guideline. JCEM. 2010; 96(7):1911-30. :02 TSH (87296) Comments: PATIENT WAS FASTINGPERFORMED BY: [employer] Jvpwqz6499 [facility] [id number] TSH 1.410 {uIU/mL} (Normal) Range: 0.450-4.500 :02 URINALYSIS, W/ MICRO (11070) Comments: PATIENT WAS FASTINGPERFORMED BY: [facility]thingDet[facility] Hospital6370 [facility] [id number] Microscopic Examination See below: (Normal) Nitrite, Urine Negative (Normal) Urobilinogen,Semi-Qn 0.2 mg/dL (Normal) Range: 0.0-1.9 Bilirubin Negative (Normal) Occult Blood 3+ (Abnormal) Ketones Negative (Normal) Glucose Negative (Normal) Protein 1+ (Abnormal) WBC Esterase 1+ (Abnormal) Appearance Clear (Normal) Urine-Color Yellow (Normal) pH 6.5 (Normal) Range: 5.0-7.5 Specific [place] 1.023 (Normal) Range: 1.005-1.030 :02 METABOLIC PANEL, COMPREHENSIVE Comments: PATIENT WAS FASTINGPERFORMED BY: HumacyteEnglewood Hospital and Medical CenterEeyqia7336 [facility] [id number] (73221) ALT (SGPT) 16 [iU]/L (Normal) Range: 0-32 [...] MANUAL DIFF Comments: PATIENT WAS FASTINGPERFORMED BY: [facility]6370 [facility] [id number] Information: [id number] (05634) Immature Grans (Abs) 0.0 {x10E3/uL} (Normal) Range: [...] Range: 3.4-10.8 :11 Blood Glucose , Office (64802) Blood Glucose , Office 161 (Normal) Comments: nonfasting :11 HgA1C , Office (18006) HgA1C , Office 5.5 % (Normal) Range: 4.6 - 7.1 :46 Metabolic Panel, Comments: all copies to Dr. cruz Montero; PATIENT NOT FASTINGPERFORMED BY: LabCoEnglewood Hospital and Medical CenterScjocg4245 [facility] [id number] Information: [id number],NURSE DRAW Comprehensive (72914) ALT (SGPT) 22 [iU]/L (Normal) Range: 0-32 [...] Glucose, Serum 114 mg/dL (Abnormal) Range: 65-99 8-Djg-191918:46 TSH (21597) Comments: PATIENT NOT FASTINGPERFORMED BY: [facility] Kgfsxm9593 [facility] [id number] TSH 0.648 {uIU/mL} (Normal) Range: 0.450-4.500 0-Xnf-534019:46 CBC (Auto) (46526) Comments: PATIENT NOT FASTINGPERFORMED BY: [facility] Ykkprv1113 [facility] [id number] Platelets 281 {x10E3/uL} (Normal) Range: 155-379 RDW [...] Range: 4.4-11.0 :49 Blood Glucose , Office (43482) Blood Glucose , Office 87 (Normal) :49 HgA1C , Office (73735) HgA1C , Office 5.6 % (Normal) Range: 4.6 - 7.1 5-Bxp-045543:11 Urinalysis, Office (83966) UA - BILIRUBIN Negative (Normal) UA - BLOOD Non Hemolyzed Trace (Normal) UA - GLUCOSE Negative (Normal) UA - KETONES Negative mg/dL (Normal) UA - LEUKOCYTE ESTERASE Trace (Normal) UA - NITRITE Negative (Normal) UA - PH 7.0 (Normal) UA - PROTEIN Negative mg/dL (Normal) UA - SPECIFIC GRAVITY 1.020 (Normal) URINE UROBILINGN JAYDEN TIMED Normal mg/dL (Normal) 21-Dec-20129:57 Blood Glucose , Office (08857) Blood Glucose , Office 73 (Normal) 66-Ndl-175254:27 CALCIUM, IONIZED (75494) Comments: PATIENT NOT FASTINGPERFORMED BY: [employer] Ezrcch4016 [facility] [id number] Information: [id number] Calcium, Ionized, Serum 6.1 mg/dL (Abnormal) Range: 4.5-5.6 74-Vzc-711992:08 URINE RUBENS CULTURE-IDENTIFICATN Comments: PATIENT NOT FASTINGPERFORMED BY: [employer] [facility] Oavklv5406 [facility] [id number] Information: [id number] (76629) Result 1 CNSNSS (Normal) Comments: Coagulase negative [...] report Culture,Comprehe (Normal) nsive :45 Urinalysis, Office (20623) UA - BILIRUBIN Negative (Normal) UA - [...] CULTURE-JAYDEN COL Comments: PATIENT NOT FASTINGPERFORMED BY: NambiiAtrium Health Pineville [id number] Information: SRC:UR ADD [id number] COUNT (01863) Result 1 MUG (Normal) Comments: Mixed urogenital flora50,000-100,000 colony forming units per mL Urine Final report (Normal) Culture,Comprehensive :44 Urinalysis, Office (11629) UA - BILIRUBIN Negative (Normal) UA - BLOOD Hemolyzed Large (Normal) UA - GLUCOSE Negative (Normal) UA - KETONES Negative mg/dL (Normal) UA - LEUKOCYTE ESTERASE Trace (Normal) UA - NITRITE Negative (Normal) UA - PH 6.0 (Normal) UA - PROTEIN Negative mg/dL (Normal) UA - SPECIFIC GRAVITY 1.020 (Normal) URINE UROBILINGN JAYDEN TIMED Normal mg/dL (Normal) 10-Dzc-62362:10 PARATHORMONE (31632) Comments: PATIENT NOT FASTINGPERFORMED BY: [employer] Swedenrp Jbgyeg8144 Momentum Dynamics CorpAtrium Health Pineville [id number] PTH, Intact 36 pg/mL (Normal) Range: 15-65 :10 CALCIUM, IONIZED (12943) Comments: PATIENT NOT FASTINGPERFORMED BY: [employer] Swedenrp Bkjtid3466 Moment[facility] Dynamics CorpAtrium Health Pineville [id number] Information: [id number] Calcium, Ionized, Serum 6.3 mg/dL (Abnormal) Range: 4.5-5.6 8-Gwt-320393:17 TSH (59110) Comments: PATIENT NOT FASTINGPERFORMED BY: [facility]6370 [facility] [id number] TSH 1.200 {uIU/mL} (Normal) Range: 0.450-4.500 9-Udu-115805:17 Protein Electrophoresis, Comments: PATIENT NOT FASTINGPERFORMED BY: [facility]6370 [facility] [id number] Information: [id number] Serum (SPEP) (61654) Please note: SPRCS (Normal) Comments: Protein electrophoresis scan will follow via computer, mail, orcourier delivery. A/G Ratio 1.8 (Normal) Range: 0.7-2.0 Globulin, Total 2.4 g/dL (Normal) Range: 2.0-4.5 M-Nelson Not Observed g/dL (Normal) Gamma Globulin 0.7 g/dL (Normal) Range: 0.5-1.6 Beta Globulin 0.9 g/dL (Normal) Range: 0.6-1.3 Mpwph-8-Zswsygsu 0.6 g/dL (Normal) Range: 0.4-1.2 Sdwfl-8-Sbgftvxk 0.2 g/dL (Normal) Range: 0.1-0.4 Albumin 4.2 g/dL (Normal) Range: 3.2-5.6 Protein, Total, Serum 6.6 g/dL (Normal) Range: 6.0-8.5 2-Jdf-422015:17 CALCIFEDIOL (94603) Comments: PATIENT NOT FASTINGPERFORMED BY: [facility]6370 [facility] [id number] Vitamin D, 25-Hydroxy 35.7 ng/mL (Normal) Range: 30.0-100.0 Comments: Vitamin D deficiency has been defined by the [place] of[place]icine and an Endocrine Society practice guideline as alevel of serum 25-OH vitamin D less than 20 ng/mL (1,2).The Endocrine Society went on to further define vitamin Dinsufficiency as a level between 21 and 29 ng/mL (2).1. IOM ([place] of Medicine). 2010. Dietary reference intakes for calcium and D. [place]: The National Academies Press.2. Shelby MF, Sergio [place], Anatoly MERCER, et al. Evaluation, treatment, and prevention of vitamin D deficiency: an Endocrine Society clinical practice guideline. JCEM. 2010; 96(7):1911-30. :17 PHOSPHORUS (63641) Comments: PATIENT NOT FASTINGPERFORMED BY: [facility] Klxkwa9565 Mistry RoadDublin [place] [id number] Phosphorus, Serum 3.6 mg/dL (Normal) Range: 2.5-4.5 :17 PARATHORMONE (22218) Comments: PATIENT NOT FASTINGPERFORMED BY: [facility] Gksnlj2722 [address] [facility] MichiganD[place] [id number] PTH, Intact 51 pg/mL (Normal) Range: 15-65 5-Huk-916508:10 Parathyroid Hormone-related Comments: PATIENT NOT FASTINGPERFORMED BY: [employer] [address] [place] [address] [id number] Peptide (PTH-rP) (76459) PTHrP (PTH-Related Peptide) <0.74 pmol/L (Normal) Comments: Reference Range:All Ages: <2.0The PTHrP assay should not be used to exclude cancer orscreen tumor patients for humoral hypercalcemia ofmalignancy (HHM). The results should always be assessed inconjun ction with the patient's medical history, clinicalexamination, and other findings. If test results areclinically discordant, please contact the laboratory. :17 CALCIUM, IONIZED (02848) Comments: PATIENT NOT FASTINGPERFORMED BY: [facility] Hyclbi6088 [address] [facility]D[place] [id number] Calcium, Ionized, Serum 6.2 mg/dL (Abnormal) Range: 4.5-5.6 5-Aul-529270:10 URINE RUBENS CULTURE-IDENTIFICATN Comments: PATIENT NOT FASTINGPERFORMED BY: [facility] Dnqbpd5049 [facility] [place] [id number] Information: [id number] (67391) Result 1 MUG (Normal) Comments: Mixed urogenital flora50,000-100,000 colony forming units per mL Urine Final report (Normal) Culture,Comprehensive :36 Urinalysis, Office (92841) UA - BILIRUBIN Negative (Normal) UA - [...] Calcium, Serum 10.9 mg/dL Comments: PERFORMED BY: [employer] [facility] MichiganLivemapAtrium Health [facility] [id number] :14 (Abnormal) Range: 8.6-10.2 :14 CBC With Differential/Platelet Comments: PERFORMED BY: NambiiAtrium Health Pineville [id number] Immature Grans (Abs) 0.0 {x10E3/uL} (Normal) Range: [...] 3.77-5.28 WBC 6.1 {x10E3/uL} (Normal) Range: 4.0-10.5 0-Klg-435175:14 Celiac Disease Comprehensive Comments: PERFORMED BY: NambiiAtrium Health [facility] [id number] Immunoglobulin A, Qn, 231 mg/dL (Normal) Range: [...] A1c 5.6 % (Normal) Comments: PERFORMED BY: [employer] Action Products InternationalDosher Memorial Hospital [id number] 0:14 Range: 4.8-5.6 Comments: . Increased risk for diabetes: 5.7 - 6.4 Diabetes: >6.4 Glycemic control for adults with diabetes: <7.0 PTH, Intact 48 pg/mL (Normal) Comments: PERFORMED BY: [employer] ([place]) Fede Ferrera [place] [id number] 0:14 Range: 15-65 20-Sep-20129:36 HEPATOBILLIARY IMG W/PHARM [...] period. The post CCK gallbladder ejection fraction kuvacrgvpkrw26 minutes following Cholecystokinin administration was noted to [...] Elmore M.D.September 20, 2012 at 10:16:57 PM [id number] Signed RB/RB If you are the referring physician and would like to consult with theradiologist who provided this interpretation, please contact Margoth Luna at [phone]. If this radiologist is unavailable, you will [...] Chan M.D.September 09, 2012 at 10:19:06 AM [id number] 48Electronically Signed GP/GP If you are the referring physician and would like to consult with theradiologist who provided this interpretation, please contact Kyara Medina. at [phone]. I f this radiologist is unavailable, youwill be directed to another radiologist to assist. If you are a patient with a question regarding this report, pleasecontactyour referring physician directly. Profe ssional Interpretation Provided By: cookdinner, Phone , These documents contain legally protected [...] 09/09/12 1116 Sign by: Suleman Chan MD 66-Afd-695197:55 Amylase (07784) Comments: PATIENT NOT FASTINGPERFORMED BY: [employer] Gjzkcp0034 Momentum Dynamics CorpAtrium Health Pineville [id number] Amylase, Serum 83 U/L (Normal) Range: 31-124 42-Udw-150706:55 Lipase (84678) Comments: PATIENT NOT FASTINGPERFORMED BY: [employer] Mnmkwv9553 [facility] CorpAtrium Health [facility]ville [id number] Lipase, Serum 49 U/L (Normal) Range: 0-59 19-Swt-763392:55 Metabolic Panel, Comprehensive Comments: PATIENT NOT FASTINGPERFORMED BY: [employer] Llwytx0052 Moment[facility] Dynamics CorpAtrium Health [facility]ville [id number] (19330) ALT (SGPT) 27 [iU]/L (Normal) Range: 0-32 [...] Glucose, Serum 72 mg/dL (Normal) Range: 65-99 49-Hgh-553410:55 CBC with manual diff (03591) Comments: PATIENT NOT FASTINGPERFORMED BY: [facility] Kzjrel4715 [address] [facility] [id number] Immature Grans (Abs) 0.0 {x10E3/uL} (Normal) Range: [...] 3.77-5.28 WBC 5.8 {x10E3/uL} (Normal) Range: 4.0-10.5 20-Lsj-354562:24 URINE RUBENS CULTURE-IDENTIFICATN Comments: PATIENT NOT FASTINGPERFORMED BY: [employer] ERMS CorporationSaint Luke's Health System [id number] Information: SRC: URINE ([id number]) Result 1 MUG (Normal) Comments: Mixed urogenital flora1,000 Colonies/mL Urine Culture,Comprehensive Final report (Normal) 2-Kvq-670982:49 URINE RUBENS CULTURE-JAYDEN COL Comments: PATIENT NOT FASTINGPERFORMED BY: kidthingSaint [facility] Trnrsw2490 [facility] [id number] Information: SRC:UR [id number] COUNT (03388) Result 2 ENTECC (Normal) Comments: Enterobacter cloacae [...] report (Normal) Culture,[place] holland 22-Aug-20129:14 Urinalysis, Office (76852) UA - BILIRUBIN Negative (Normal) UA - BLOOD Negative (Normal) UA - GLUCOSE Negative (Normal) UA - KETONES Negative mg/dL (Normal) UA - LEUKOCYTE ESTERASE Small (Normal) UA - NITRITE Negative (Normal) UA - PH 6.0 (Normal) UA - PROTEIN Negative mg/dL (Normal) UA - SPECIFIC GRAVITY 1.015 (Normal) URINE UROBILINGN JAYDEN TIMED Normal mg/dL (Normal) 30-Dsy-049140:56 Urinalysis, Office (73367) UA - BILIRUBIN Negative (Normal) UA - BLOOD Negative (Normal) UA - GLUCOSE Negative (Normal) UA - KETONES Negative mg/dL (Normal) UA - LEUKOCYTE ESTERASE Trace (Normal) UA - NITRITE Negative (Normal) UA - PH 7.0 (Normal) UA - PROTEIN Negative mg/dL (Normal) UA - SPECIFIC GRAVITY 1.025 (Normal) URINE UROBILINGN JAYDEN TIMED Normal mg/dL (Normal) 19-Jul-20128:13 CALCIFEDIOL (97166) Comments: PATIENT WAS FASTINGPERFORMED BY: LabCoEnglewood Hospital and Medical CenterLegvrd8115 [facility] [id number] Vitamin D, 25-Hydroxy 32.6 ng/mL (Normal) Range: 30.0-100.0 Comments: Vitamin D deficiency has been defined by the [place] ofMedicine and an Endocrine Society practice guideline as alevel of serum 25-OH vitamin D less than 20 ng/mL (1,2).The Endocrine Society went on to further define vitamin Dinsufficiency as a level between 21 and 29 ng/mL (2).1. IOM ([place] of Medicine). 2010. Dietary reference intakes for calcium and D. [place]: The National Academies Press.2. Shelby MF, Sergio [place], Anatoly MERCER, et al. Evaluation, treatment, and prevention of vitamin D deficiency: an Endocrine Society clinical practice guideline. JCEM. 2010; 96(7):1911-30. :13 TSH (95624) Comments: PATIENT WAS FASTINGPERFORMED BY: [employer] Nqovxa4703 [facility] [id number] TSH 1.590 {uIU/mL} (Normal) Range: 0.450-4.500 :13 MICROALBUMIN: CREATININE RATIO Comments: PATIENT WAS FASTINGPERFORMED BY: [employer] Oppmmz2053 [facility] [id number] (18903) AND (60361) Creatinine, Urine 69.0 mg/dL (Normal) Range: 15.0-278.0 Microalb/Creat Ratio 9.3 {mg/g_creat} (Normal) Range: 0.0-30.0 Microalbumin, Urine 6.4 ug/mL (Normal) Range: 0.0-17.0 :13 METABOLIC PANEL, COMPREHENSIVE Comments: PATIENT WAS FASTINGPERFORMED BY: HumacyteEnglewood Hospital and Medical CenterMbvfns1878 [facility] [id number] (08828) ALT (SGPT) 25 [iU]/L (Normal) Range: 0-32 [...] mg/dL (Normal) Range: 65-99 :13 LIPID PANEL (67377) Comments: PATIENT WAS FASTINGPERFORMED BY: [employer] Osjivq0382 [facility] [id number] LDL/HDL Ratio 1.0 {ratio_units} (Normal) Range: 0.0-3.2 [...] MANUAL DIFF Comments: PATIENT WAS FASTINGPERFORMED BY: [employer] Gaihib0693 [facility] [id number] Information: [id number] (23539) Immature Grans (Abs) 0.0 {x10E3/uL} (Normal) Range: [...] {x10E3/uL} (Normal) Range: 4.0-10.5 :05 Urinalysis, Office (45365) UA - BILIRUBIN Negative (Normal) UA - [...] Normal mg/dL (Normal) :02 HgA1C , Office (73406) HgA1C , Office 5.4 % (Normal) Range: 4.6 - 7.1 :02 Blood Glucose , Office (61357) Blood Glucose , Office 136 (Normal) Comments: has eaten 60-Tbn-845785:00 Blood Glucose , Office (97970) Blood Glucose , Office 96 (Normal) 35-Duc-122588:00 HgA1C , Office (50902) HgA1C , Office 5.3 % (Normal) Range: 4.6 - 7.1 36-Ixi-432119:00 Urinalysis, Office (66772) UA - BILIRUBIN Negative (Normal) UA - BLOOD Negative (Normal) UA - GLUCOSE Negative (Normal) UA - KETONES Negative mg/dL (Normal) UA - LEUKOCYTE ESTERASE Trace (Normal) UA - NITRITE Negative (Normal) UA - PH 6.0 (Normal) Comments: 5.5 UA - PROTEIN Negative mg/dL (Normal) UA - SPECIFIC GRAVITY 1.025 (Normal) URINE UROBILINGN JAYDEN TIMED Normal mg/dL (Normal) 22-Wyp-46768:00 URINE RUBENS CULTURE-JAYDEN COL Comments: PATIENT NOT FASTINGPERFORMED BY: [facility] Tomkqt9776 [facility] [id number] Information: SRC:UR [id number] COUNT (11807) Result 1 ECV (Normal) Comments: Escherichia coli, [...] S Urine Final report (Normal) Culture,Comprehensiv e 93-Jkp-27844:49 Urinalysis, Office (48308) UA - BILIRUBIN Negative (Normal) UA - BLOOD Non Hemolyzed Moderate (Normal) UA - GLUCOSE Negative (Normal) UA - KETONES Negative mg/dL (Normal) UA - LEUKOCYTE ESTERASE Small (Normal) UA - NITRITE Negative (Normal) UA - PH 5.0 (Normal) Comments: 5.5 UA - PROTEIN Negative mg/dL (Normal) UA - SPECIFIC GRAVITY 1.025 (Normal) Comments: 1.030 URINE UROBILINGN JAYDEN TIMED Normal mg/dL (Normal) 35-Qcq-301355:15 Creatine Kinase Total (94320) Comments: PATIENT NOT FASTINGPERFORMED BY: [facility] Skctof8645 [facility] [place] [id number] Creatine Kinase,Total,Serum 145 U/L (Normal) Range: 24-173 62-Syd-389036:15 Sed Rate Erythrocyte (98044) Comments: PATIENT NOT FASTINGPERFORMED BY: CB [facility] Mnjwjm4957 [facility] [facility] [place] [id number] Sedimentation Rate-Westergren 2 mm/h (Normal) Range: 0-40 33-Kfq-789651:15 CALCIFEDIOL (27267) Comments: PATIENT NOT FASTINGPERFORMED BY: [facility] Akxxoy4868 [address] [facility] [id number] Information: [id number] Vitamin D, 25-Hydroxy 40.9 ng/mL (Normal) Range: 30.0-100.0 Comments: Vitamin D deficiency has been defined by the [place] of[place]icine and an Endocrine Society practice guideline as alevel of serum 25-OH vitamin D less than 20 ng/mL (1,2).The Endocrine Society went on to further define vitamin Dinsufficiency as a level between 21 and 29 ng/mL (2).1. IOM ([place] of [employer]). 2010. Dietary reference intakes for calcium and D. [place]: The National Academies Press.2. Shelby MF, Sergio [place], Anatoly MERCER, et al. Evaluation, treatment, and prevention of vitamin D deficiency: an Endocrine Society clinical practice guideline. JCEM. 2010; 96(7):1911-30. 75-Hwh-183518:15 PARATHORMONE (41900) Comments: PATIENT NOT FASTINGPERFORMED BY: [facility] Gcljam[address] [facility] [place] [id number] PTH, Intact 40 pg/mL (Normal) Range: 15-65 70-Wpm-229756:01 BREAST UNILATERAL Radiology Report See Note (Normal) [...] Chan M.D.November 30, 2011 at 12:49:05 PM [id number] Signed GP/GP If you are the referring physician and would like to consult with the [facility] who provided this interpretation, please contact Margoth Medina at [phone]. If this radiologist is unavailable, youwill be directed to another radiologist to assist. If you are a patien t with a question regarding this report, pleasecontactyour referring physician directly. Professional Interpretation Provided By: cookdinner, Phone , Dictated on 1044 by Rocio FLORES,Yeyoscribed on 11/30/11 1254 by ITS IMPORTSign by Suleman Chan MD on 11/30/11 1255 Sign by: Suleman Chan MD 34-Jcl-91278:45 BILAT SCRN DIGITAL & CAD Radiology Report [...] not delay biopsy of a clinically suspiciousabnormality. Signed:uSleman Chan M.D.November 25, 2011 at 9:44:08 AM ED [id number] Signed GP/GP If you are the referring physician and would like to consult with theradiologist who provided this interpretation, please contact Margoth Medina at [phone]. If this radiologist is unavailable, youwill be directed to another radiologist to assist. If you are a patient with a question regarding this report, pleasecontactyour referring physician [facility]. Professional Interpretation Provided By: cookdinner, Phone , Dictated on 11/25/11 0923 by Rocio FLORES,Yeyoscribed on 11/25/11 1136 by ITS IMPORTSign by Suleman Tadeo MD on 11/25/11 1137 Sign by: Suleman Chan MD 99-Pxv-16375:44 DEXA BONE DENSITY STUDY (HP) Radiology Report [...] M.D.November 25, 2011 at 11:00:04 AM ED [id number] Signed GP/GP If you are the referring physician and would like to consult with theradiologist who provided this interpretation, please contact Margoth Medina at . If this radiologist is unavailable, youwill be directed to another radiologist to assist. If you are a patient with a question regarding this report, pleasecontactyour referring physician dire [facility]. Professional Interpretation Provided By: cookdinner, Phone , Dictated on 11/25/11 0845 by Fern Chan MDribed on 11/25/11 1115 by ITS IMPORTSign by Suleman Tadeo MD on 11/25/11 1116 Sign by: Suleman Chan MD 82-Dfr-28688:38 Microscopic Examination Comments: PATIENT WAS FASTINGPERFORMED BY: [facility] [facility] [id number] Bacteria Few (Normal) Mucus Threads Present (Normal) Epithelial Cells (non renal) 0-10 {/hpf} (Normal) Range: 0 - 10 RBC 0-3 {/hpf} (Normal) Range: 0 - 3 WBC 0-5 {/hpf} (Normal) Range: 0 - 5 :38 Request Problem Comments: PATIENT WAS FASTINGPERFORMED BY: [facility] [facility] [id number] :38 TSH ([id number]) Comments: PATIENT WAS FASTINGPERFORMED BY: [facility] [place] [address] [id number] TSH 1.010 {uIU/mL} (Normal) Range: 0.450-4.500 :38 URINALYSIS, W/ MICRO (93431) Comments: PATIENT WAS FASTINGPERFORMED BY: [facility] [id number] Microscopic Examination See below: (Normal) Microscopic Examination MICRON (Normal) Comments: Microscopic follows if indicated. Nitrite, Urine Negative (Normal) Urobilinogen,Semi-Qn 0.2 mg/dL (Normal) Range: 0.0-1.9 Bilirubin Negative (Normal) Occult Blood Negative (Normal) Ketones Negative (Normal) Glucose Negative (Normal) Protein Negative (Normal) WBC Esterase Negative (Normal) Appearance Cloudy (Abnormal) Urine-Color Yellow (Normal) pH 7.5 (Normal) Range: 5.0-7.5 Specific [place] 1.019 (Normal) Range: 1.005-1.030 :38 MICROALBUMIN: CREATININE RATIO Comments: PATIENT WAS FASTINGPERFORMED BY: [place] [address]26[address] [facility] [id number] ([id number]) AND (69351) :38 METABOLIC PANEL, COMPREHENSIVE Comments: PATIENT WAS FASTINGPERFORMED BY: [address] [id number] ([id number]) ALT (SGPT) 25 [iU]/L (Normal) Range: 0-40 [...] Glucose, Serum 84 mg/dL (Normal) Range: 65-99 33-Ppf-05896:38 LIPID PANEL (19654) Comments: PATIENT WAS FASTINGPERFORMED BY: [facility] CenterDbszgm9165 [facility] [id number] LDL/HDL Ratio 1.0 {ratio_units} (Normal) Range: 0.0-3.2 LDL Cholesterol Calc 66 mg/dL (Normal) Range: 0-99 VLDL Cholesterol Tab 38 mg/dL (Normal) Range: 5-40 HDL Cholesterol 65 mg/dL (Normal) Comments: According to ATP-III Guidelines, HDL-C >59 mg/dL is considered anegative risk factor for CHD. Triglycerides 191 mg/dL (Abnormal) Range: 0-149 Cholesterol, Total 169 mg/dL (Normal) Range: 100-199 :38 CBC WITH MANUAL DIFF (13195) Comments: PATIENT WAS FASTINGPERFORMED BY: [facility] CenterXhfckk2778 [facility] [id number] Immature Grans (Abs) 0.0 {x10E3/uL} (Normal) Range: [...] (Normal) Range: 4.0-10.5 :23 HgA1C , Office (58236) HgA1C , Office 5.7 % (Normal) Range: 4.6 - 7.1 :23 Blood Glucose , Office (43935) Blood Glucose , Office 93 (Normal) Plan [...] Indication: Fatty liver Cervical pain : Reviewed [employer] Letter- in PT Indication: Cervical pain Breast [...] daytime sleepiness Excessive daytime sleepiness : Reviewed [employer] Letter Indication: Excessive daytime sleepiness Current nonsmoker [...] movement disorder Bruising : Follow up with early intervention school psychologist Indication: Bruising Frequent falls : Eprescribed prescriptions [...] : Follow up in 1 week with [facility] on a Wednesday Indication: Diabetic neuropathy [...] 3 months Indication: Hypercalcemia Planned Observations TSH (65083)Indication: Hypothyroidism On: :08 Request URINALYSIS, W/ MICRO (44221)Indication: Type II diabetes mellitus, well controlled On: :08 Request MICROALBUMIN: CREATININE RATIO (87274) AND (48126)Indication: Type II diabetes mellitus, well controlled On: :08 Request METABOLIC PANEL, COMPREHENSIVE (44530)Indication: Type II diabetes mellitus, well controlled On: :08 Request LIPOPROTEIN, BLD, BY NMR (86333)Indication: Type II diabetes mellitus, well controlled On: :08 Request CBC W/AUTO DIFF WBC (83754)Indication: Type II diabetes mellitus, well controlled On: :08 Request Influenza A&B Viral Culture (57935)Indication: Chills On: 6-Ahd-675142:08 Request Rapid Flu (30455 x 2)Indication: Cough On: 6-Tqr-755478:07 Request RJIEK-FRWQUZAGQHD-HPVXP (89748)Indication: Fatty liver On: 9-Ppv-207800:14 Request Anti-TPO Antibody (95983)Indication: Hypothyroidism On: : Request T4, FREE (THYROXINE) (62054)Indication: Hypothyroidism On: Request T3, FREE (TRIDOTHYRONINE) (35370)Indication: Hypothyroidism On: : Request TSH (88577)Indication: Hypothyroidism On: : Request URINALYSIS, W/ MICRO (04479)Indication: Hypertension, benign On: : Request MICROALBUMIN: CREATININE RATIO (12914) AND (79368)Indication: Diabetes mellitus with diabetic neuropathy On: : Request METABOLIC PANEL, COMPREHENSIVE (89618)Indication: Hypertension, benign On: Request CBC W/AUTO DIFF WBC (05577)Indication: Hypertension, benign On: : Request LIPID PANEL (91546)Indication: Hyperlipidemia, unspecified On: : Request CALCIFIDIOL (17712) VIT D 25Indication: Vitamin D deficiency disease On: :11 Request CALCIFIDIOL (53729) VIT D 25Indication: Vitamin D deficiency disease On: 20-Bzq-721432:12 Request URINALYSIS, W/ MICRO (05460)Indication: Diabetes mellitus with diabetic neuropathy On: 31-Vyw-288968:11 Request MICROALBUMIN: CREATININE RATIO (55204) AND (93441)Indication: Diabetes mellitus with diabetic neuropathy On: 11-Rzd-652271:11 Request METABOLIC PANEL, COMPREHENSIVE (24192)Indication: Diabetes mellitus with diabetic neuropathy On: : Request CBC W/AUTO DIFF WBC (54512)Indication: Diabetes mellitus with diabetic neuropathy On: : Request LIPID PANEL (00240)Indication: Hyperlipidemia, unspecified On: : Request TSH (66663)Indication: Hypothyroidism On: 10-Lob-234351:11 Request Thin Prep Pap (12930)Indication: Encounter for screening for cervical cancer (Renamed from Encounter for screening for malignant neoplasm of cervix) On: 10-Wlh-23638:58 Request HgA1C , Office (76151)Indication: Diabetes mellitus with diabetic neuropathy On: :30 Request HPV automatic (49655)Indication: Screening for HPV (human papillomavirus) (Renamed from Encounter for screening for human papillomavirus (HPV)) On: 70-Bqi-31395:25 Request LIPID PANEL (48101)Indication: Hypertension, benign On: 04-Scr-957046:19 Request Comments: in three months (approximately) copy to Dr. freire METABOLIC PANEL, COMPREHENSIVE (93429)Indication: Hypertension, benign On: :19 Request T3, TOTAL (TRIDOTHYRONINE) (30730)Indication: Hypothyroidism On: :08 Request T4, TOTAL (33362)Indication: Hypothyroidism On: 1-Tjs-649932:08 Request TSH (THYROID STIMULATING HORMONE) (83757)Indication: Hypothyroidism On: 0-Iqv-365109:58 Request PARATHORMONE (03788)Indication: Hypercalcemia On: :58 Request CALCIUM, IONIZED (69950)Indication: Hypercalcemia On: 5-Dzx-297420:58 Request Metabolic Panel, Basic (48136)Indication: Diabetes mellitus with diabetic neuropathy On: 4-Vfo-855744:44 Request Comments: recheck in 2-3 weeks on losartan CALCIFIDIOL (93662) VIT D 25Indication: Vitamin D deficiency disease On: 4-Nzt-685953:33 Request TSH (59356)Indication: Hypothyroidism On: 8-Npf-622858:32 Request MICROALBUMIN: CREATININE RATIO (91034) AND (33845)Indication: Diabetes mellitus with diabetic neuropathy On: 7-Ynp-114767:32 Request METABOLIC PANEL, COMPREHENSIVE (37371)Indication: Diabetes mellitus with diabetic neuropathy On: 1-Mux-287150:32 Request LIPID PANEL (99788)Indication: Diabetes mellitus with diabetic neuropathy On: 4-Dmj-037416:32 Request CBC with auto diff (70335)Indication: Diabetes mellitus with diabetic neuropathy On: 6-Tci-001481:32 Request PARATHORMONE (95186)Indication: Abnormal blood findings On: :18 Request URINE RUBENS CULTURE-JAYDEN COL COUNT (71364)Indication: Bacteria in urine On: :18 Request LIPID PANEL (34950)Indication: Diabetes mellitus with diabetic neuropathy On: 24-May-20138:23 Request CBC WITH MANUAL DIFF (30481)Indication: Melena On: 1-Hvr-999563:25 Request PARATHORMONE (19084)Indication: Hypercalcemia On: :21 Request CALCIUM, IONIZED (55496)Indication: Hypercalcemia On: : Request CALCIFIDIOL (90797) VIT D 25Indication: Vitamin D deficiency disease On: :20 Request MICROALBUMIN: CREATININE RATIO (54832) AND (07625)Indication: Diabetes mellitus type II, controlled On: :19 Request METABOLIC PANEL, COMPREHENSIVE (38116)Indication: Diabetes mellitus type II, controlled On: :19 Request LIPID PANEL (59963)Indication: Diabetes mellitus type II, controlled On: :19 Request CBC WITH MANUAL DIFF (66536)Indication: Diabetes mellitus type II, controlled On: :19 Request HgA1C , Office (95198)Indication: Diabetes mellitus type II, controlled On: 1-Dog-291319:35 Request Comments: 5.6 Hemoglobin Glyclated (HGB A1C) (33570)Indication: Diabetes mellitus type II, controlled On: :35 Request CBC (Auto) (48689)Indication: Abdominal pain, acute, right upper quadrant On: :33 Request PARATHORMONE (67419)Indication: Hypercalcemia On: :33 Request Calcium Serum (40730)Indication: Hypercalcemia On: :33 Request FLURESCNT ANTIB SCRN EA (30071) celiac profileIndication: Abdominal pain, acute, right upper quadrant On: :32 Request IMMUNOASSAY, ANALYTE (NON-INFECT) (37174) celiac profileIndication: Abdominal pain, acute, right upper quadrant On: :32 Request IGA/IGD/IGG/IGM-EACH (42885) celiac profileIndication: Abdominal pain, acute, right upper quadrant On: 17-Oct-20129:32 Request CELIAC DISEASE AB 802243 (02949)Indication: Abdominal pain On: 03-Tah-412098:17 Request Celiac Disease Comphrehensive Profile (14914)Indication: Abdominal pain On: 25-Bcn-293270:17 Request Troponin I (38253)Indication: Chest pain On: 24-Los-905822:31 Request CPK MB FRACTION (00845)Indication: Chest pain On: 59-Slf-078401:31 Request CREATINE KINASE TOTAL (16329)Indication: Chest pain On: 99-Flo-358131:31 Request TSH (THYROID STIMULATING HORMONE) (29440)Indication: Panic attack On: 48-Kaz-899949:27 Request CALCIFEDIOL (88738)Indication: Vitamin D deficiency disease On: 31-Wgo-823063:18 Request TSH (62042)Indication: Hypothyroidism On: 21-Xxz-943060:16 Request MICROALBUMIN: CREATININE RATIO (96300) AND (97515)Indication: Diabetes mellitus type II, controlled On: 64-Epy-582030:16 Request METABOLIC PANEL, COMPREHENSIVE (56381)Indication: Diabetes mellitus type II, controlled On: 82-Vdl-163245:16 Request LIPID PANEL (35645)Indication: Diabetes mellitus type II, controlled On: 99-Uan-991545:16 Request CBC WITH MANUAL DIFF (10028)Indication: Diabetes mellitus type II, controlled On: 48-Sps-017730:16 Request URINE RUBENS CULTURE-IDENTIFICATN (52022)Indication: Urgency of urination On: 53-Cqs-789660:14 Request CBC with manual diff (43010)Indication: Fall from high place, initial encounter On: 22-Jan-20129:51 Request Comments: drawn in office Calcium Serum (59777)Indication: Fall from high place, initial encounter On: :51 Request Comments: drawn in office Metabolic Panel, Comprehensive (64113)Indication: Fall from high place, initial encounter On: 22-Jan-20129:51 Request Comments: drawn in office TSH (67426)Indication: Fall from high place, initial encounter On: 22-Jan-20129:50 Request Comments: drawn in office, sent to hospital Calcium Serum (54493)Indication: Hypercalcemia On: 62-Abr-035716:42 Request Planned Procedures ELECTROCARDIOGRAM, COMPLETE (ECG) On: 27-Apr-2018 Intent (52625)By: Octavia Nichols DO Comments: nsr no acute chg -- Octavia HOGUE Flu Vaccine (Quadrivalent) 46535Rq: On: 18-Jan-2018 Intent Octavia Nichols DO, DO, Comments: Lot #[id number]/30/19Site-Rt dltd, IMDose prefilled syringegiven by: Faye GARCIAVIS reviewed and ABN signed Octavia KIPL-MR-HLOB BEHAVIORAL COUNSELING FOR On: 18-Jan-2018 Intent OBESITY, 15 MINUTES (G0447)By: Octavia Nichols DO, DO, Kathleen Radiology - Wrist - RightBy: Ciesa On: 12-Jan-2018 Intent Aylin GRANT Radiology - Wrist - LeftBy: Ciesa MANAGER ENROLLMENT, On: 12-Jan-2018 Intent Antonella DIAGNOSTIC BILATERAL MAMMOGRAM On: 10-Dec-2017 Intent (37903)By: Octavia Nichols DO, DO, Kathleen Ultrasound - Breast - RightBy: On: 07-Dec-2017 Intent Karen Gandhi ELECTROCARDIOGRAM, COMPLETE (ECG) On: 25-Oct-2017 Intent (05162)By: Octavia Nichols DO Comments: sinus frankie- poor [...] Intent Octavia Nichols DO, DO, Kathleen Spirometry (24072)By: Simone HOGUE, On: 26-Aug-2017 Intent Octavia Dennison DO Comments: normal -- will not do inhaler at this time for cough Echo CompleteBy: Octavia Nichols DO On: 02-Jul-2017 Intent Octavia Nichols DO US DOPPLER CAROTID BILATERAL On: 02-Jul-2017 Intent (69221)By: Octavia Nichols DO, DO, Kathleen Spirometry (11853)By: Simone HOGUE, On: 20-May-2017 Intent Octavia Dennison DO Comments: normal Wax Currettes (57347)By: Munira RATLIFF, On: 12-May-2017 Intent Loli Ear Irrigation (03744)By: Munira RATLIFF, On: 12-May-2017 Intent Loli TDAP VACCINE >7 IM (08208)By: Simone On: 23-Mar-2017 Intent Octavia HOGUE DO, Kathleen Comments: 5H2H2 lot and exp 04/29/19 lt arm ELECTROCARDIOGRAM, COMPLETE (ECG) On: 23-Mar-2017 Intent (75256)By: Octavia Nichols DO Comments: nsr no acute cgh Octavia HOGUE Flu Vaccine (Quadrivalent) 60901Yn: On: 13-Jan-2017 Intent Octavia Nichols DO, DO, Comments: Lot:[id number]:11/01/17Dose:0.5mLRoute:IMSite:L DltdGiven By:DAVID signed Octavia PNEUM VAC ADLT/IMUMNOSPR, SBC/INTRM On: 28-Dec-2016 Intent (47976)By: Octavia Nichols DO Comments: lot: [id number]: 12/18/17ite/route: L del/IMamt: 0.5mLVIS signed when applicableChelseaJAY JAY DO, Kathleen WUEB-DN-FDMN BEHAVIORAL COUNSELING FOR On: 28-Dec-2016 Intent OBESITY, 15 MINUTES (G0447)By: Octavia Nichols DO, DO, Kathleen SCREENING DIGITAL TOMOSYNTHESIS OF On: 28-Dec-2016 Intent BREAST (38822)By: Octavia Nichols DO, DO, Kathleen Radiology - Ankle - LeftBy: Rigo GRANT, On: 02-Dec-2016 Intent Aylin Jules CurettesBy: Octavia Nichols DO On: 26-Oct-2016 Intent Octavia Nichols DO Ear Irrigation (50716)By: Simone HOGUE, On: 26-Oct-2016 Intent Octavia Dennison DO Comments: R ear gooey lots of wax removed currette used- canals red but not inflamed when done so told her to call if pain develpied DRAIN/INJECT SMALL JOINT OR BURSA On: 10-Jun-2016 Intent ()By: Octavia Nichols DO, DO, Octavia X-RAY OF HAND, THREE VIEWS (80328)By: On: 08-Jun-2016 Intent Octavia Nichols DO, DO, Comments: attention base of thumb Octavia X-RAY OF HUMERUS, TWO VIEWS (68134)By: On: 20-Apr-2016 Intent Octavia Nichols DO, DO, Octavia X-RAY OF ELBOW, THREE VIEWS (36196)By: On: 20-Apr-2016 Intent Octavia Nichols DO, DO, Kathleen Flu Vaccine (Quadrivalent) [id number]: On: 11-Mar-2016 Intent Loli Lombardo LPN CT - Brain/Head (Without Contrast)By: On: 03-Jan-2016 Intent Aylin Sierra CNP Comments: Call results to iesa today if before 3pm if not call to [facility] splunk consultant KF Solu -Medrol Injection, 125 mg On: 01-Nov-2015 Intent (J2930)By: Aylin iSerra CNP Comments: Lot:[id number]:05/2018Dose:125mgRoute:imSite:r hipGiven By:DAVID signed ATTENDED SLEEP STUDY (81605)By: Rigo On: 25-Oct-2015 Intent Aylin GRANT Comments: schedule with Dr. Letty AbelttesBy: Zeferino FLORES, Rosa Isela Arias On: 30-Sep-2015 Intent Ear Irrigation (68472)By: Zeferino FLORES, On: 30-Sep-2015 Intent Rosa Isela Arias Comments: IrrigationSite- L earAmount/Color/Quality - minimal Unable to get all cerumen out at this point due to the cerumen being too hard and patient was getting dizzy. She will go home and use Debrox and then come back to have sprayed agai Pap Smear, Medicare (Q0091)By: Zeferino On: 30-Sep-2015 Intent Rosa Isela FLORES BILATERAL MAMMOGRAMS (08549)By: On: 30-Sep-2015 Intent Rosa Iesla Sweet MD Comments: due November 2015 DEXA SCAN AXIAL SKELETON (99534)By: On: 30-Sep-2015 Intent Rosa Isela Sweet MD Ultrasound - Abdomen CompleteBy: Adelina On: 23-May-2015 Intent Santy FLORES Radiology - Hip - RightBy: Adelina FLORES, On: 23-May-2015 Intent Santy Flu Vaccine (Quadrivalent) 16127Yc: On: 26-Feb-2015 Intent Rosa Isela Sweet MD Comments: Lot:[id number]:11/14/15Dose:0.5mLRoute:IMSite:L DltdGiven By:DAVID signed GASTRIC EMPTYING STUDY (28606)By: On: 07-Dec-2014 Intent Rosa Isela Sweet MD Ultrasound - ThyroidBy: Zeferino FLORES, On: 20-Nov-2014 Intent Rosa Isela Arias Ultrasound - ThyroidBy: Zeferino FLORES, On: 21-Aug-2014 Intent Rosa Isela Arias MAMMOGRAM, SCREENING, BOTH BREAST On: 22-May-2014 Intent (98392)By: Rosa Isela Sweet MD GASTRIC EMPTYING STUDY (70556)By: On: 22-May-2014 Intent Rosa Isela Sweet MD Prevnar 13 (76567)By: Zeferino FLORES, On: 22-May-2014 Intent Rosa Isela Arias EKG (98507)By: Rosa Isela Sweet MD On: 22-May-2014 Intent Comments: see scanned document of test done to see results reviewed today with patient Wax CurettesBy: Rosa Isela Sweet MD On: 30-Apr-2014 Intent Ear Irrigation (80298)By: Zeferino FLORES, On: 30-Apr-2014 Intent Rosa Isela Arias IMMUNIZ ADMNIN, 1 VAC, SNGL/COMBO On: 21-Feb-2014 Intent (47976)By: Rosa Isela Sweet MD Comments: Lot #[id number]-L dltd, IMDose prefilled syringegiven by:Fidel LPNVIS and ABN signed FLU VAC, SPLIT, >3 YEARS, INTRAMUSC On: 21-Feb-2014 Intent (07901)By: Rosa Isela Sweet MD Eprescribed prescriptions (G8553)By: [...] (G8553)By: On: 11-Apr-2013 Intent Jackie Mcgee EKG (10488)By: Rosa Isela Sweet MD On: 23-Mar-2013 Intent Comments: see scanned document of test done to see results reviewed today with patient Eprescribed prescriptions (G8553)By: On: 23-Mar-2013 Intent Gabriella Velez LPN FLU VAC, SPLIT, >3 YEARS, INTRAMUSC On: 21-Feb-2013 Intent (46628)By: Gabriella Velez LPN Comments: lot [id number] 2014site/route L magi, IMamt 0.5mlVIS and ABN signed when applicableChelsea, [facility] ANNUAL [facility]PRESSION SCREENING, 15 On: 21-Feb-2013 Intent MINUTES (G0444)By: Rosa Isela Sweet MD Nuclear Medicine - Gastric Emptying On: 21-Feb-2013 Intent StudyBy: Rosa Isela Sweet MD ADMINISTRATION OF INFLUENZA VIRUS On: 21-Feb-2013 Intent VACCINE (G0008)By: Gabriella Velez LPN Comments: Lot #[id number]-L dltd, IMDose prefilled syringegiven by:MLong, ZANENVIS and ABN signed Eprescribed prescriptions (G8553)By: On: 21-Feb-2013 Intent Gabriella Velez LPN Eprescribed prescriptions (G8553)By: On: 28-Nov-2012 Intent Aylin Sierra CNP SPECIMEN HANDLING/TRANSPORT (58544)By: On: 28-Nov-2012 Intent Mary Sarmiento LPN Nuclear Medicine - HIDA w/CPKBy: On: 16-Sep-2012 Intent Jackie Mcgee ELECTROCARDIOGRAM, COMPLETE (ECG) On: 09-Sep-2012 Intent (31632)By: Aylin Sierra CNP Comments[facility] - HIDA w/CPKBy: On: 06-Sep-2012 Intent Rosa Isela Sweet MD Comments: if us negative Ultrasound - GallbladderBy: Zeferino On: 06-Sep-2012 Intent Rosa Isela FLORES Eprescribed prescriptions (G8553)By: On: 06-Sep-2012 Intent Gabriella Velez LPN Eprescribed prescriptions (G8553)By: On: 22-Aug-2012 Intent Aylin Sierra CNP ELECTROCARDIOGRAM, COMPLETE (ECG) On: 18-Jul-2012 Intent (04216)By: Gabriella Velez LPN Comments: see scanned document of test done to see results reviewed today with patient Nuclear Stress Test/Stress On: 18-Jul-2012 Intent SPECT/TreadmillBy: Rosa Isela Sweet MD Eprescribed prescriptions (G8553)By: On: 18-Jul-2012 Intent Gabriella Velez LPN Eprescribed prescriptions (G8553)By: On: 04-Mar-2012 Intent Mary Sarmiento LPN SPECIMEN HANDLING/TRANSPORT (71363)By: On: 04-Mar-2012 Intent Mary Sarmiento LPN Holter Monitor 24 hrsBy: Zeferino FLORES, On: 25-Jan-2012 Intent Rosa Isela Arias Echo CompleteBy: Rosa Isela Sweet MD On: 25-Jan-[address] - Brain/HeadBy: Aylin Sierra CNP On: 22-Jan-2012 Intent Comments: will ask to do in ER ADMINISTRATION OF INFLUENZA VIRUS On: 14-Jan-2012 Intent VACCINE (G0008)By: Bernadine Slaughter FLU VAC, SPLIT, >3 YEARS, INTRAMUSC On: 14-Jan-2012 Intent (58406)By: Bernadine Slaughter DXA, BONE DENSITY, AXIAL SKELETON On: 09-Nov-2011 Intent (48237)By: Rosa Isela Sweet MD Comments: loss of height, estrogen def. MAMMOGRAM, SCREENING, BOTH BREASTS On: 09-Nov-2011 Intent (02043)By: Rosa Isela Sweet MD EKG (78990)By: Rosa Isela Sweet MD On: 09-Nov-2011 Intent [...] patient does not have durable power of civil attorney or living will. The aruna ent [...] for Tdap vaccination (Renamed from Need for qokkkhnqme-dfkumcw-jdsyqwksh (Tdap) vaccine, adult/adolescent) [facility] [...] patient does not have durable power of civil attorney or living will. The patient has noticed feeling emptiness in life , feeling helpless and having problems with memory than others. Other providers contributing to the patient's care are cigar packer and sorter and other:.Encounter Diagnosis: Current nonsmoker (Renamed from [...] care from office visit to ER to [facility] psych unit secondary to halluci End: 05-Feb-2016 11:42 nations She was admitted to the geropsychiatric unit then trasferred to [address] seen by psychiatristJonathon jenningss continued but low dose Zyprexa 2.5mg at bedtime for symptoms of psychosis and mood stabi lization . Seen by Dr Nga Gustafson MD of the [facility] to follow up with Dr. Cline ??on 67-55-82Gzont diagnosis Bipolar mixed with psychotic features Metformin [...] door of a gas station and called [employer] but did not want to go to Er by [employer] because went home with . Hurt left [...] up ER: fell End: 25-Oct-2015 13:57 at [facility] October 16 after slipping on [facility]. Feeling depressed and falling asleepReports that [...] up ER: fell End: 22-Oct-2015 11:11 [facility], Excessive daytime sleepiness, Abnormal [...] patient does not have durable power of civil attorney or living will. The patient has noticed dissatisfaction with life, dropping activities and interests, feeling emptiness in life, poor spirits most of time, feeling something bad will happen and having problems with memory than others. Other providers contributing to the patient's care are gas trologist (Dr. Montero ) and other: (endo: Dr. Mitchell). Note for Annual Medicare Exam: pt has bottle caser to help with some of the ADL's.Encounter [...] started new med last ??wednesday, started by soil tester, ??rash under breast bilateral and chest improving [...] started new med last wednesday, started by soil tester, rash under breast bilateral and chest. Encounter [...] Nutrition: balanced diet and supplemental vitamins. 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
--- OUTSIDE RECORDS SUMMARY | 2018-08-03 18:56 | XMS RPT_ITS ---
:1945 Author Organization OHIP Support Name Relationship Address Phone CHESTER HUI Unavailable [address] + [place] [address] R Unavailable Unavailable Unavailable ISAURAWALTERRADHA Unavailable Unavailable + RADHA HUI Unavailable Unavailable + CHESTER HUI Unavailable [address] + [place] [address] R Unavailable Unavailable Unavailable CHESTER HUI Unavailable [address] + [place] [address] R Unavailable Unavailable Unavailable CHESTER HUI Unavailable [address] + [place] [address] R Unavailable Unavailable Unavailable CHESTER HUI Unavailable [address] + [place] [address] R Unavailable Unavailable Unavailable CHESTER HUI Unavailable [address] + [place] [address] R Unavailable Unavailable Unavailable CHESTER HUI Unavailable [address] + [place] [address] R Unavailable Unavailable Unavailable CEHSTER HUI Unavailable [address] + [place] [address] R Unavailable Unavailable Unavailable CHESTER HUI Unavailable [address] + [place] [address] R Unavailable Unavailable Unavailable CHESTER HUI Unavailable [address] + [place] [address] R Unavailable Unavailable Unavailable ISAURAWALTERRADHA Unavailable Unavailable + ANGTERRADHA Unavailable Unavailable + CHESTER HUI Unavailable [address] + [place] [address] R Unavailable Unavailable Unavailable CHESTER HUI Unavailable [address] + [place] [address] R Unavailable Unavailable Unavailable CHESTER HUI Unavailable [address] + [place] [address] R Unavailable Unavailable Unavailable CHESETR HUI Unavailable [address] + [place] [address] R Unavailable Unavailable Unavailable CHESTER HUI Unavailable [address] + [place] [address] R Unavailable Unavailable Unavailable Care Team Providers Name Role Phone MAXX PALACIOS Referring Unavailable WIETEMAXX RUIZ DO Attending Unavailable RICHIE DO, DR. GRACE Primary Care Unavailable WIETEJOSEPH HOGUE, MAXX Perez Attending Unavailable RICHIE DO, DR. GRACE Primary Care Unavailable Richie DO, Octavia Attending Unavailable Augustina Mcgarry MD Referring Unavailable Richie DO, Octavia Consulting Unavailable Richie, Octavia Attending Unavailable Richie, Octavia Referring Unavailable Richie, Octavia Primary Care Unavailable Richie, Octavia Attending Unavailable Richie, Octavia Referring Unavailable Richie, Octavia Primary Care Unavailable Cebul, Cruz Attending Unavailable Cebul, Cruz Referring Unavailable Richie, Octavia Primary Care Unavailable Cebul, Cruz Consulting Unavailable Nurse, Surgery Attending Unavailable Richie, Octavia Referring Unavailable Richie, Octavia Primary Care Unavailable Susie Maki Attending Unavailable CiesaAylin Attending Unavailable CiesaAylin Referring Unavailable Richie, Octavia Primary Care Unavailable Karen Gandhi WEATHER FORECASTER-C Attending Unavailable Karen Gandhi WEATHER FORECASTER-C Referring Unavailable Richie, Octavia Primary Care Unavailable Richie, Octavia Attending Unavailable Richie, Octavia Primary Care Unavailable Richie, Octavia Referring Unavailable Richie, Octavia Primary Care Unavailable Bernadine Vargas Attending Unavailable Richie, Octavia Attending Unavailable Richie, Octavia Referring Unavailable Richie, Octavia Primary Care Unavailable Haseeb Tinoco Attending Unavailable Richie, Octavia Referring Unavailable Richie, Octavia Primary Care Unavailable Kristian Sauceda Attending Unavailable Richie, Octavia Attending Unavailable Richie, Octavia Referring Unavailable Richie, Octavia Primary Care Unavailable Richie, Octavia Attending Unavailable Richie, Octavia Referring Unavailable Richie, Octavia Primary Care Unavailable Cruz Montero Attending Unavailable Cruz Montero Referring Unavailable Patricia Nicholshleen Primary Care Unavailable PROBLEMS PROBLEMS DATE TYPE CONDITION / CODE ATTENDING STATUS SOURCE 06/02/2018 Unknown M62.830 - Muscle Richie, Active [place] spasm of back / [facility] M62.830(ICD-10) Hospital Repository 06/02/2018 Unknown S33.5XXD - Sprain Richie, Active [place] of ligaments of [facility] lumbar spine, Hospital subsequent Repository encounter / S33.5XXD(ICD-10) 05/02/2018 Unknown E03.9 - Richie, Active [place] Hypothyroidism, [facility] unspecified / Hospital E03.9(ICD-10) Repository 05/02/2018 Unknown E11.9 - Type 2 Richie, Active [place] diabetes mellitus [facility] without Hospital complications / Repository E11.9(ICD-10) 03/16/2018 Unknown M54.2 - Cervicalgia Richie, Active [place] / M54.2(ICD-10) [facility] Repository 01/13/2018 Active Pain in right wrist NA Active [facility] / M25.531(ICD-10) Main [place] Repository 01/12/2018 Unknown M25.531 - Pain in [place] Active [place] right wrist / Community M25.531(ICD-10) Hospital Repository 08/27/2017 Unknown R05 - Cough / Richie, Active [place] R05(ICD-10) [facility] Repository 08/17/2017 Unknown R01.1 - Cardiac Haseeb Tinoco Active [place] murmur, unspecified Community / R01.1(ICD-10) Hospital Repository 07/13/2017 Unknown R09.89 - Other Richie, Active [place] specified symptoms [facility] and signs involving Hospital the circulatory and Repository respiratory systems / R09.89(ICD-10) PROCEDURES PROCEDURES No Procedure Records FoundRESULTS RESULTS TSH Collected: 05/18/2018 Status: F Source: [facility] 10:49 AM [facility] REPOSITORY TYPE CODE TESTS RESULT OUT OF RANGE REFERENCE UNITS LAB TSH(LOINC) 0.36-3.74 mcIU/mL High TSH 26.42 Performed By: #### TSH, CMP, GFR, VIDH #### [place] [id number] CMP Collected: 05/18/2018 Status: F Source: [facility] 10:49 AM [facility] REPOSITORY TYPE CODE TESTS RESULT OUT OF REFERENCE UNITS RANGE LAB GLU(LOINC) 83-110 mg/dL Glucose Level 85 LAB NA(LOINC) 136-145 mmol/L Sodium Level 140 LAB K(LOINC) 3.5-5.1 mmol/L Potassium Level 4.5 LAB CL(LOINC) 98-107 mmol/L Chloride 104 LAB CO2(LOINC) 23-31 mmol/L CO2 29 LAB EBAL(LOINC mEq/L ) Electrolyte Balance 7.0 LAB BUN(LOINC) 7-18 mg/dL BUN High 19 LAB CRE(LOINC) 0.55-1.02 mg/dL Creatinine Lvl (s) 0.80 LAB BC(LOINC) 7-27 ratio BUN/Creatinine 24 Ratio LAB CA(LOINC) 8.4-10.2 mg/dL Calcium Lvl 9.2 LAB PROT(LOINC 6.4-8.2 G/dL ) Total Protein 7.0 LAB ALB(LOINC) 3.4-4.8 G/dL Albumin Level 3.6 LAB GLB(LOINC) G/dL Globulin 3.4 LAB AG(LOINC) 1.1-2.5 ratio A/G Ratio 1.1 LAB BILT(LOINC 0.2-1.0 mg/dL ) Bili Total 0.3 LAB AP(LOINC) 40-135 U/L Alk Phos 76 LAB AST(LOINC) 10-40 U/L AST/SGOT 29 LAB ALT(LOINC) 10-35 U/L ALT/SGPT 30 Performed By: #### TSH, CMP, GFR, VIDH #### [place] [address] .GFR Collected: 05/18/2018 Status: F Source: [facility] 10:49 AM [facility] REPOSITORY TYPE CODE TESTS RESULT OUT OF REFERENCE UNITS RANGE LAB GFRAA(LOINC ml/min/1.73 ) sqm GFR 85 Norwegian Result Comment: GFR Population mean for , Non- Americans Ages 20-29 = 116 mL/min/1.73 sq.m. Ages 30-39 = 107 mL/min/1.73 sq.m. Ages 40-49 = 99 mL/min/1.73 sq.m. Ages 50-59 = 93 mL/min/1.73 sq.m. Ages 60-69 = 85 mL/min/1.73 sq.m. Ages 70+ = 75 mL/min/1.73 sq.m. Chronic Kidney Disease: Less than 60 mL/min/1.73 square meters End Stage Renal Disease: Less than 15 mL/min/1.73 square meters LAB GFRNO(LOINC) ml/min/1.73sqm GFR Non- 71 Result Comment: GFR Population mean for , Non- Americans Ages 20-29 = 116 mL/min/1.73 sq.m. Ages 30-39 = 107 mL/min/1.73 sq.m. Ages 40-49 = 99 mL/min/1.73 sq.m. Ages 50-59 = 93 mL/min/1.73 sq.m. Ages 60-69 = 85 mL/min/1.73 sq.m. Ages 70+ = 75 mL/min/1.73 sq.m. Chronic Kidney Disease: Less than 60 mL/min/1.73 square meters End Stage Renal Disease: Less than 15 mL/min/1.73 square meters Performed By: #### TSH, CMP, GFR, VIDH #### [address] [address] VIDH Collected: 05/18/2018 Status: F Source: [facility] 10:49 AM [facility] REPOSITORY TYPE CODE TESTS RESULT OUT OF RANGE REFERENCE UNITS LAB VIDH(LOINC) ng/mL Vit. D 42 25-Hydroxy Result Comment: Interpretive Values Based on Total 25(OH)D: Severe Deficiency <20 ng/mL Mild to Moderate Deficiency 20-30 ng/mL Optimum Levels 30-100 ng/mL Toxicity Possible >100 ng/mL Performed By: #### TSH, CMP, GFR, VIDH #### [address] [address] CBC W/DIFF, AUTOMATED Collected: 05/02/2018 Status: F Source: [place] 8:13 AM [facility] REPOSITORY TYPE CODE TESTS RESULT OUT OF RANGE REFERENCE UNITS LAB L100.1000 4.4-11.0 K/mm3 Normal WBC 6.2 LAB L100.1200 4.2-5.4 M/mm3 Normal RBC 4.51 LAB L100.1300 12.0-15.0 g/dl Low HGB 11.3 LAB L100.1400 37-47 % Low HCT 36.1 LAB L100.1500 81-99 fL Low MCV 80.0 LAB L100.1600 27.0-32.0 pg Low MCH 25.1 LAB L100.1700 32-36 g/gl Low MCHC 31.3 LAB L100.1810 11.6-14.6 % High RDW CV 14.9 LAB L100.1820 35.1-43.9 fl Normal RDW SD 43.0 LAB L100.1900 150-450 K/mm3 Normal PLT 279 LAB L100.2000 6.2-12.0 fl Normal MPV 9.6 LAB L100.2100 47-70 % Normal NEUT% 69.2 LAB L100.2200 19-41 % Low LY% 16.3 LAB L100.2300 0-10 % High MONO% 10.3 LAB L100.2400 0-5 % Normal EO% 3.4 LAB L100.2500 0-1 % Normal BASO% 0.5 LAB L100.2550 0.0-0.9 % Normal IM GRAN % 0.300 Result Comment: IG% - Immature Granulocytes (promyelocytes, myelocytes and metamyelocytes) > 1% indicates that a LEFT SHIFT is Present. LAB L100.2620 2.0-7.7 X10 3/uL Normal Absolute Neut 4.3 LAB L100.2720 0.83-4.51 X10 3/ul Normal Absolute Lymph 1.01 Performed By: #### L100.0100 #### [facility] [address] [place], [address] URINALYSIS, COMPLETE Collected: 05/02/2018 Status: F Source: [place] 8:13 AM [facility] REPOSITORY Order Comment: How was Urine Obtained? CLEAN CATCH TYPE CODE TESTS RESULT OUT OF RANGE REFERENCE UNITS LAB L400.3000 Yellow COLOR Normal Yellow LAB L400.3050 Clear Normal CLARITY Sl. Cloudy LAB L400.3200 Normal mg/dl Normal GLUCOSE, UR Normal LAB L400.3300 Negative mg/dL Normal BILIRUBIN URINE Negative LAB L400.3400 Negative mg/dl Normal KETONE UR Negative LAB L400.3465 1.002-1.030 Normal SP.GR. DIPSTX 1.010 LAB L400.3550 5.0 - 8.0 pH UR Normal 6.5 LAB L400.3600 Negative mg/dl PROT Normal DIPSTX Negative LAB L400.3700 Normal mg/dl Normal UROBILI Normal LAB L400.3750 Negative Normal NITRITE UR Negative LAB L400.3780 Negative /ul Normal OCCULT BLOOD-UR Negative LAB L400.3800 Negative /ul High LEUK 25 ESTERASE LAB L400.4050 0-5 /hpf WBC Normal 0-5 SEEN LAB L400.4100 0-5 /hpf 0 Normal RBC-UA SEEN LAB L400.4150 5-10 /hpf SQUAM Normal EPI 0-5 SEEN LAB L400.4300 None Seen /hpf 1+ Normal BACTERIA LAB L400.4350 <or=2+ /hpf 0 Normal MUCUS, URINE SEEN Performed By: #### L400.0001 #### [facility] [address] [place], [place], [address] MICROALB:CREAT Collected: 05/02/2018 Status: F Source: [facility] 8:13 AM [facility] REPOSITORY TYPE CODE TESTS RESULT OUT OF RANGE REFERENCE UNITS LAB L501.1200 NO RANGE EST. mg/dL Normal UR CREAT 58.20 LAB L502.0500 NO RANGE EST. mg/L Normal 10.9 MICROALBUMIN ,UR LAB L502.0600 <30 mg/g CRE mg/g CRE Normal 18.7 MALB:CREAT Performed By: #### L502.0250 #### [facility] [address] [place], [address] COMPREHENSIVE METABOLIC Collected: 05/02/2018 Status: F Source: [place] PROFIL 8:13 AM [facility] REPOSITORY TYPE CODE TESTS RESULT OUT OF RANGE REFERENCE UNITS LAB L501.0100 74-106 mg/dL Normal GLU 93 Result Comment: Please note revised GLUCOSE reference range effective 2017. LAB L501.1000 7-18 mg/dL High BUN 19 LAB L501.1100 0.55-1.02 mg/dL Normal CREAT,SERUM 0.65 Result Comment: The validity of the calculated GFR AND GFRAA in patients over 70 years has not been determined. Clinical correlation is essential. LAB L501.1110 >60 mL/min Normal EST GFR 95 Result Comment: Non- GFR Calc LAB L501.1115 >60 mL/min Normal EST GFR - AA 115 Result Comment: GFR Calc LAB L501.1300 10-20 RATIO High BUN/CRE 29.1 LAB L501.1500 6.4-8.2 g/dL T Normal PROT 7.4 LAB L501.1800 3.2-5.0 g/dL Normal ALB 3.5 LAB L501.1950 2.2-4.2 g/dL Normal GLOB 3.9 LAB L501.2000 0.9-2.4 RATIO Normal A/G 0.9 LAB L501.2200 8.5-10.1 mg/dL CA Normal 8.7 LAB L501.4100 15-37 U/L Normal AST 25 LAB L501.4305 45-117 U/L Normal ALK P 83 LAB L501.4405 13-56 U/L Normal ALT 30 LAB L501.4600 0.20-1.00 mg/dL T Normal BILI 0.40 LAB L501.5300 136-145 mmol/L NA Normal 142 LAB L501.5600 3.5-5.1 mmol/L K Normal 4.3 LAB L501.5900 98-107 mmol/L CL Normal 107 LAB L501.6100 21.0-32.0 mmol/L Normal CO2 30.0 LAB L501.6200 5-15 Normal GAP 5 Performed By: #### L500.4050, L501.9520 #### [facility] [address] [place], [place], [id number] THYROID STIM HORMONE Collected: 05/02/2018 Status: F Source: [place] (TSH) 8:13 AM [facility] REPOSITORY TYPE CODE TESTS RESULT OUT OF RANGE REFERENCE UNITS LAB L501.9520 0.358-3.74 uIU/mL Normal TSH 1.28 Performed By: #### L500.4050, L501.9520 #### [facility] [address] [place], [place], [id number] NMR LIPOPROFILE Collected: 05/02/2018 Status: F Source: [place] 8:13 AM [facility] REPOSITORY TYPE CODE TESTS RESULT OUT OF RANGE REFERENCE UNITS LAB L3500.0250 LIPIDS Normal . LAB L3500.0300 100-199 mg/dL High CHOLESTEROL TOT 230 LAB L3500.0350 0-99 mg/dL High LDL-C 143 Result Comment: Optimal < 100 Above optimal 100 - 129 Borderline 130 - 159 High 160 - 189 Very high > 189 LDL-C is inaccurate if patient is non-fasting. LAB L3500.0400 >39 mg/dL HDL-C Normal 68 LAB L3500.0450 0-149 mg/dL TRIGLYCERIDES Normal 94 LAB L3500.0560 <1000 nmol/L High LDL-P 1929 Result Comment: Low < 1000 Moderate 1000 - 1299 Borderline-High 1300 - 1599 High 1600 - 2000 Very High > 2000 LAB L3500.0575 Normal LD HD PARTICLES . LAB L3500.0580 >=30.5 umol/L Normal HDL-P TOTAL 37.5 LAB L3500.0585 <=527 nmol/L Normal SMALL LDL-P 463 LAB L3500.0590 >20.5 nm Normal LDL SIZE 21.6 Result Comment: INTERPRETATIVE INFORMATION PARTICLE CONCENTRATION AND SIZE <--Lower CVD Risk Higher CVD Risk--> LDL AND HDL PARTICLES Percentile in Reference Population HDL-P (total) High 75th 50th 25th Low >34.9 34.9 30.5 26.7 <26.7 Small LDL-P Low 25th 50th 75th High <117 117 527 839 >839 LDL Size <-Large (Pattern A)-> <-Small (Pattern B)-> 23.0 20.6 20.5 19.0 Small LDL-P and LDL Size are associated with CVD risk, but not after LDL-P is taken into account. These assays were developed and their performance characteristics determined by [employer]. These assays have not been cleared by the [place] Food and Drug Administration. The clinical utility of these laboratory values have not been fully established. LAB L3500.0595 Normal INS RES/DIAB RK . LAB L3500.0875 <=45 Normal LP-IR SCORE 43 Result Comment: INSULIN RESISTANCE MARKER <--Insulin Sensitive Insulin Resistant--> Percentile in Reference Population Insulin Resistance Score LP-IR Score Low 25th 50th 75th High <27 27 45 63 >63 LP-IR Score is inaccurate if patient is non-fasting. The LP-IR score is a laboratory developed index that has been associated with insulin resistance and diabetes risk and should be used as one component of a physician's clinical assessment. The LP-IR score listed above has not been cleared by the [place] Food and Drug Administration. Performed at: - [facility] [address] [id number] Assorter: Micheal Westbrook MD, Phone: [phone] Performed By: #### L3500.0000 #### [facility] (refer to report for specific site) refer to report for address and phone number PT D/C SUMMARY (1) Observed: 03/16/2018 Status: F Source: [place] 9:54 AM [facility] REPOSITORY [facility] [address] [place] [address]. [address] [place] [address] Fax REHABILITATION SERVICES DISCHARGE SUMMARY MR#: [id number] Acct: [id number] Name: JOSELUIS HUI Rep #: [id number] : 1945 73 From: Samy Johnson PT, Cert. MDT, OCS Referring DrSandoval: Octavia Nichols DO Status: REG RCR Insurance: [employer] MEDICAID HP - PT D/C Summary It has been my pleasure to treat JOSELUIS HUI under orders from Octavia Nichols, for the diagnosis of Cervical neck pain, cervical muscle spasm for a total of 24 visit(s). Discharge Date: 03/16/18 Please see the following information for a summary of their discharge status. - Subjective Subjective: Doing well..Improve ROM cervical spine. for my ADL'S - Pain Neck Pain Intensity (Out of 10): 1 - Overall Improvement % Improvement: 70 - Objective Objective/Function: POSTURE: mild foward posture,head foward. PALPATION: levator/UT. CERVICAL ROM: flexion min loss,extension min/mod loss,lateral flexion /rotation mod. BUE: grossly 4/5 4-/5 shoulder - Goals Goal 1:: Pt will improve B cervical rotation to 45 degrees to improve tolerance with looking over her shoulder. 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 Goal Progress: Goal Met Goal 3:: Pt will report a score of 5 points or better on the neck FATEMEH to show improved function and QOL. Goal Progress: Goal Met Goal 4:: Pt will report ability to return to brand planner such as mowing and vacuuming without limitation. Goal Progress: Goal Met Goal 5:: Pt will be independent with HEP to sustain gains made in the clinic. Goal Progress: Goal Met - Plan Plan: D/C - D/C Information Discharge Comments: MAY TRY MASSAGE ON OWN If there are questions or concerns regarding this patient's physical therapy, please feel free to call me at [phone]. Thank you for the referral of this patient. Sincerely, Samy Johnson PT, <Electronically signed by Samy Johnson PT, Cert. MDT, [facility]> 03/16/18 0954 CC: Octavia Nichols DO VEDA Signed OPERATIVE REPORT - Observed: 03/03/2018 Status: F Source: [facility] ENDOSCOPY 11:34 AM [facility] REPOSITORY [facility] Medical Records Department [address] [place] [id number] Operative Report - Endoscopy MR#: [id number] Acct: [id number] Name: JOSELUIS HUI Rep #: [id number] : 1945 73 From: Cruz Montero MD PCP: Octavia Nichols DO Status: [place] [facility] Patient Name: Joseluis Hui Procedure Date: 03/03/2018 11:00 AM Date of : 1945 Age: 73 Procedure: Colonoscopy Indications: [...] anesthesia was also reviewed. The risks and benefits of the procedure and the sedation options and risks were discussed with the patient. All questions were answered, and informed consent was obtained. Prior Anticoagulants: The patient has taken no previous anticoagulant or antiplatelet agents. ASA Grade Assessment: [...] was somewhat difficult due to a tortuous colon. The patient tolerated the procedure well. The quality of the bowel preparation was adequate to identify polyps. The ileocecal valve was photographed. Moderate Sedation: Moderate (conscious) sedation was personally administered by the endoscopist. The following parameters were monitored: oxygen saturation, heart rate, blood pressure, and response to care. Total physician intraservice time was 15 minutes. Scope In: 11:09:15 AM Scope Withdrawal Time 0 hours 8 minutes 44 seconds Scope Out: 11:27:52 AM Total Procedure Duration Time 0 hours 18 minutes 37 seconds Findings: Hemorrhoids were found on perianal exam. Lax anal tone Multiple diverticula were found in the sigmoid colon and descending colon. The colon (entire examined portion) was moderately tortuous. The exam was otherwise without abnormality. Impression: - Hemorrhoids found on perianal exam. - Diverticulosis in the sigmoid colon and in the descending colon. - Tortuous colon. - The examination was otherwise normal. - No specimens collected. Recommendation: - Discharge patient to home. - Resume regular diet. - Continue present medications. - Repeat colonoscopy in 5 years for surveillance. Procedure Code(s): --- Professional --- 37972, Colonoscopy, flexible; diagnostic, including collection of specimen(s) by brushing or washing, when performed (separate procedure) 21066, 59, Moderate sedation services provided by the same physician or other qualified health critical care clinical nurse specialist performing the diagnostic or therapeutic service that the sedation supports, requiring the presence of an independent trained observer to assist in the monitoring of the patient's level of consciousness and physiological status; initial 15 minutes of intraservice time, patient age 5 years or older Diagnosis Code(s): --- Professional --- Z86.010, Personal history of colonic polyps K64.9, Unspecified hemorrhoids K57.30, Diverticulosis of large intestine without perforation or abscess without bleeding Q43.8, Other specified congenital malformations of intestine CPT copyright 2017 [employer]. All rights reserved. The codes documented in this report are preliminary and upon sustainment logistics analyst review may be revised to meet current compliance requirements. Cruz Montero MD 03/03/2018 11:33:51 AM This report has been signed electronically. Number of Addenda: 0 Note Initiated On: 03/03/2018 11:00 AM 03/03/18 1134 Date Cruz Montero MD Cosign Signature: Date (if indicated) CC: Octavia Nichols DO; Cruz Montero MD Date Dictated: 03/03/18 1100 Date Transcribed: Quill Buncher And Sorter: SENIA Signed HISTORY AND PHYSICAL Observed: 03/03/2018 Status: F Source: [place] EXAM 10:58 AM [facility] REPOSITORY [facility] Medical Records Department [address] [place] [address] History and Physical 03/03/18 1055 MR#: [id number] Acct: [id number] Name: JOSELUIS HUI Rep #: [id number] : 1945 73 From: Cruz Montero MD PCP: Octavia Nichols DO Status: REG SDC Y Location: AC AC12-1 Problem List (1) Personal history of colonic polyps Status: Acute History of Present Illness Date of Admission: [...] denies chest pain or shortness of breath cardiac or pulmonary issues. No abdominal pain. No bright red blood per rectum or melena. No unexpected weight loss. Past Medical History Past Medical History (Chronic Problems): Chronic Problems History of small bowel obstruction (Chronic) Hypothyroid (Chronic) Epigastric pain (Chronic) Dyslipidemia (Chronic) Type II diabetes mellitus (Chronic) Benign essential hypertension (Chronic) Allergies codeine Adverse Reaction (Mild, Verified 03/01/18 14:53) Upset Stomach hydroxyzine HCl [From Vistaril] Adverse Reaction (Mild, Verified 03/01/18 14:53) Rash hydroxyzine pamoate [From Vistaril] Adverse Reaction (Mild, Verified 03/01/18 14:53) Rash Home Medications: Ambulatory Orders Medication Instructions Recorded Surgical History: herniorrhaphy, total hip arthroplasty Smoking Status: Never smoker Tobacco Use: Non-smoker Review of Systems Constitutional: Denies: Anorexia HEENT: Denies: Difficulty Swallowing Cardiovascular: Denies: Chest Pain Respiratory: Denies: Cough Gastrointestinal: Denies: Abdominal Pain, Hematochezia, Melena Neurological: Denies: Balance problems VTE Information - Inpt Only VTE Present on Admission: No Patient Problems: Active and Suspected Problems Personal history of colonic polyps (Acute) - Physical Exam General: Alert, Oriented x3, Cooperative, No apparent distress HEENT: Atraumatic Oral: Moist Mucosa Neck: Supple Lungs: Clear to auscultation Cardiovascular: Regular rate, Regular Rhythm Abdomen: Bowel Sounds Present, Soft, Non Tender, Non-Distended Extremities: No Calf Tenderness Musculoskeletal: No Tenderness to Palpation of Joints or Extremities Neurological: Cranial nerves II-XII grossly intact Vital Signs Temp Pulse Resp BP Pulse Ox 98.8 F 71 16 123/75 H 97 03/03/18 10:10 03/03/18 10:10 03/03/18 10:10 03/03/18 10:10 03/03/18 10:10 Oxygen Delivery Method Room Air Weight: 164 lb 0.383 oz Body Mass Index (BMI) 29.9 POC Glucose POC Glucose 88 Assessment/Plan All Active Problems Personal history of colonic polyps (Acute) I am recommending the patient a colonoscopy with possible biopsy or polypectomy is indicated. She is aware of the technique, benefits, risks and alternatives. She has had an opportunity to ask and have questions answered. We will proceed at her discretion. Cruz Montero M.D., F.A.C.S. 03/03/18 1058 <Electronically signed by Cruz Montero MD> Date Cruz Montero MD Cosigner Signature: Date (if applicable) CC: Octavia Nichols DO; Cruz Montero MD Signed BEDSIDE GLUCOSE Collected: 03/03/2018 Status: F Source: [place] 10:17 AM [facility] REPOSITORY TYPE CODE TESTS RESULT OUT OF RANGE REFERENCE UNITS LAB L501.080 70-110 mg/dL Normal BEDSIDE GLU 88 Result Comment: MANAGEMENT OF PATIENT CARE PER NURSING PROTOCOL Performed By: #### L501.080 #### [facility] Laboratory Point of Care [facility] [place] [address] RE-EVALUATION - PT (1) Observed: 02/23/2018 Status: F Source: [place] 2:49 PM [facility] REPOSITORY [facility] Physical [facility] [address] [place] [address]. [address] [place] [address] Fax REEVALUATION / MEDICARE RECERTIFICATION PHYSICAL THERAPY MR#: [id number] Acct: [id number] Name: JOSELUIS HUI Rep #: [id number] : 1945 73 From: Samy Johnson PT, Cert. MDT, OCS Referring Dr.: Octavia Nichols DO Status: REG RCR Insurance: [employer] MEDICAID Otcavia Nichols, It has been my pleasure to treat JOSELUIS HUI over the last 20 visits for Cervical neck pain, cervical muscle spasm. Please see the progress note below for an update on the physical therapy plan of care! Subjective: Doing better overall less pain with spasms ,Patient has a PERALTA. Patient is able to do ADL'S and housework tasks. Sleeping okay. Denies paathesia/tingling Objective/Function: POSTURE: mild foward posture ,head prutruded foward. PALPATION: tender oociput. CERVICAL ROM: flexion/extension mod loss,rotation/laterl flexion mod loss extnesion mod loss. MMT: [...] Pt will report ability to return to brand planner such as mowing and vacuuming without limitation. [...] do not hesitate to contact me at [phone] by phone or if you have questions or concerns regarding this new plan of care! Sincerely, Samy Johnson PT, <Electronically signed by Samy Johnson PT, Cert. T, OCS> 02/23/18 1449 CC: Octavia Nichols DO VEDA Signed For Medicare only, by signing this I certify the plan of care. Physicians Signature Date RE-EVALUATION - PT (1) Observed: 01/24/2018 Status: F Source: [place] 3:16 PM [facility] REPOSITORY [facility] Physical [facility] [address] [place] [address]. [address] [place] [address] Fax REEVALUATION / MEDICARE RECERTIFICATION PHYSICAL THERAPY MR#: [id number] Acct: [id number] Name: JOSELUIS HUI Rep #: [id number] : 1945 73 From: Samy Androsik PT, Cert. MDT, OCS Referring DrSandoval: Octavia Nichols DO Status: REG RCR Insurance: [employer] MEDICAID Octavia Perkinson, It has been my pleasure to treat JOSELUIS HUI over the last 15 visits for Cervical neck pain, cervical muscle spasm. Please see the progress note below for an update on the physical therapy plan of care! Subjective: Patient feeling better today,More cervical movemement for function Objective/Function: POSTURE: mild foward head ,prutruded ,rounded shoulders. NEURO: denies parathesia/tingling,reflexes C5-6-7 /. CERVICAL ROM: flexion min loss,lateral flexion/rotation mod loss ,extension mod loss. MMT: BUE grossly 4/5,4-5 shoulder. PALPATION:tender levator /scapular UIT left Plan [...] Pt will report ability to return to brand planner such as mowing and vacuuming without limitation. [...] do not hesitate to contact me at [phone] by phone or if you have questions or concerns regarding this new plan of care! Sincerely, Samy Johnson PT, <Electronically signed by Samy Johnson PT, Cert. MDT, [facility]> 01/24/18 1516 CC: Octavia Nichols DO VEDA Signed For Medicare only, by signing this I certify the plan of care. Physicians Signature Date EMERGENCY DEPARTMENT Observed: 01/13/2018 Status: F Source: [place] SUMMARY 9:44 PM [facility] REPOSITORY [facility] Medical Records Department [address] [address] Emergency Department Summary 01/13/18 2142 MR#: [id number] Acct: [id number] Name: JOSELUIS HUI Rep #: [id number] : 1945 73 From: Susie Maki DO PCP: Octavia Nichols DO Status: REG ER - ER Visit Summary Date of Service: 01/13/18 Chief Complaint: [Addendum to initial dictation] History of Present Illness: The patient is a 73 F [presented with complaint of right wrist pain. Patient had x-rays yesterday that were read by radiology as possible triquetrum fracture that is nondisplaced. The x-rays performed today were interpreted by separate radiologist and did not feel there was any fractures. Given that patient has not had any significant trauma that she can recall I feel is less likely the patient has a fracture. Patient will follow-up with orthopedics and will be given a wrist splint] Physical Examination: [] Test Results: [] Emergency Department Course and Treatment: [] Treatment Plan: [Follow-up with orthopedics in 3-5 days. Wrist splint. Patient may need further imaging to completely and definitively diagnose possible fracture such as possible CT of wrist or MRI as an outpatient if it is felt necessary by orthopedics.] Disposition: [Discharged home in stable condition] Impression: [Right wrist sprain-possible triquetral fracture] This note was generated with Broadband Voice dictation software. It may contain incorrect words, spelling, and punctuation that were not noted in review of the chart prior to signing ED Disposition - Plan for ED Patient: Chief Complaint: Upper Extremity Injury Instructions: ED Sprain Wrist Referrals: Octavia Nichols DO [Primary Care Provider] - Jeronimo Melo MD [STAFF PHYSICIAN] - 3-5 Days What to do if you have Problems For any increased pain, shortness of breath, bleeding, nausea or vomiting, chest pain, or any unexpected problems, contact your Primary Care Provider. Call [facility] ([phone]) or report to the closest Emergency Room. Call 911 if necessary. 01/13/18 2144 <Electronically signed by Susie Maki DO> Date Susie Maki DO Cosigner Signature (If Indicated): Date CC: Octavia Nichols DO DISCHARGE INSTRUCTION Observed: 01/13/2018 Status: F Source: [place] 9:33 PM [facility] REPOSITORY [facility] Medical Records Department [address] [place] [address] Discharge Instruction 01/13/182131 MR#: [id number] Acct: [id number] Name: JOSELUIS HUI Rep #: [id number] : 1945 73 From: Susie Maki DO PCP: Octavia Nichols DO Status: REG ER ED Disposition - Plan for ED Patient: Chief Complaint: Upper Extremity Injury Instructions: ED Sprain Wrist Referrals: Octavia Nichols DO [Primary Care Provider] - Jeronimo Melo MD [STAFF PHYSICIAN] - 3-5 Days What to do if you have Problems For any increased pain, shortness of breath, bleeding, nausea or vomiting, chest pain, or any unexpected problems, contact your Primary Care Provider. Call [facility] ([phone]) or report to the closest Emergency Room. Call 911 if necessary. 01/13/182132 <Electronically signed by Susie Maki DO> Date Susie Maki DO Cosigner Signature (If Indicated): Date CC: Octavia Nichols DO EMERGENCY DEPARTMENT Observed: 01/13/2018 Status: F Source: [place] SUMMARY 9:32 PM [facility] REPOSITORY [facility] Medical Records Department [address] [place] [address] Emergency Department Summary 01/13/182128 MR#: [id number] Acct: [id number] Name: JOSELUIS HUI Rep #: [id number] : 1945 73 From: Susie Maki DO PCP: Richie DO,Octavia Status: REG ER - ER Visit Summary Date of Service: 01/13/18 Chief Complaint: [Pain right wrist] History of Present Illness: The patient is a 73 F [presents the emergency department with complaint of pain in the right hand and wrist. Patient states that discomforts been there for several days. Patient states that she had a fall about 4 days ago when she fell into the kitchen counter injuring her left arm. Patient is not sure if she hurt her hand at that time because her pain in her hand and wrist did not start until several days later. [...] EOMI. Cranial nerves II through XII grossly intact. TMs clear. Mucous membranes moist. No adenopathy. Cardiovascular-regular rate and rhythm without murmur or ectopy Lungs-clear to auscultation, chest wall stable without crepitus or subcu emphysema Abdomen-normoactive bowel sounds, soft, nontender, no rebound or rigidity, no peritoneal signs. Extremities-intact 4, normal range of motion, normal pulses. Patient does have some ecchymosis that appears old over the left humerus without any [...] right wrist splint. Patient denies anything for pain here.] Treatment Plan: [Patient to follow-up with orthopedics and continue to wear splint for comfort. Patient will take Tylenol for discomfort.] Disposition: [Discharged home in stable condition] Impression: [Right wrist sprain] This note was generated with Broadband Voice dictation software. It may contain incorrect words, [...] your Primary Care Provider. Call [facility] ([phone]) or report to the closest Emergency Room. Call 911 if necessary. 01/13/182 <Electronically signed by Susie Maki DO> Date Susie Maki DO Cosigner Signature (If Indicated): Date CC: Octavia Nichols DO WRIST MIN 3 VIEWS Observed: 01/13/2018 Status: F Source: [place] 8:19 PM [facility] REPOSITORY [facility] Imaging Services [address] [place] [address] Wrist min 3 Views MR#: [id number] Acct: [id number] Name: JOSELUIS HUI Rep #: [id number] : 1945 F 73 From: Jonny Sandy MD PCP: Octavia Nichols DO Status: PRE ER Study: Wrist min 3 Views Date of Exam: 01/13/18 Exam# [id number] Ordering Dr: Provider, Ed P. STUDY: X-RAY - RIGHT WRIST REASON FOR EXAM: Female, 73 years old. Right wrist pain after fall. TECHNIQUE: 3 view(s) of the wrist were obtained. COMPARISON: None. FINDINGS: Normal visualized distal radius and ulna. Normal radiocarpal articulation. Normal distal radioulnar articulation. Normal carpal bones. Normal carpal articulations. 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 Normal second through fifth carpometacarpal articulations. Normal visualized metacarpal bones. There is amorphous calcification in the region of the vagina or fibrocartilage, as well as a 2-3 mm [...] at 20:35 EDT , Service support , CC: ED PHYSICIAN PROVIDER; Octavia Nichols DO Quill Buncher And Sorter: Signed XR WRIST 3V PA/LAT/OBL Observed: 01/13/2018 Status: F Source: [facility] 10:57 AM [facility] REPOSITORY * * *Final Report* * * DATE OF EXAM: Jan 13 2018 10:57AM WOX [id number] - XR WRIST 3V PA/LAT/OBL RT / PROCEDURE REASON: Pain in right wrist * * * * Physician Interpretation * * * * EXAM:XR WRIST 3V PA/LAT/OBL RT HISTORY: Pain in right wrist COMPARISON:None IMPRESSION: There are mild degenerative changes in the first carpometacarpal joint. There is mild ulnar plus anatomic variant. The lunate is intact. Triangular fibrocartilage complex calcifications are probably degenerative. There is heterotopic ossification or accessory ossicle in the tip of the ulnar styloid. There is no focal soft tissue swelling. Quill Buncher And Sorter: KELLIE Transcribe Date/Time: Jan 13 2018 1:38P Dictated by : ENE SU MD This examination was interpreted and the report reviewed and electronically signed by: ENE SU MD on Jan 13 2018 1:41PM EST [id number] PROGRESS Observed: 01/13/2018 Status: COMPLETED Source: [place] 10:47 AM [facility] REPOSITORY HNO ID: [id number] Author: Dot Carbajal (Rt) Silvia Alan Service: (none) Author Type: Antenna Engineer Type: Progress Notes Filed: 01/13/2018 10:57 AM Note Text: Radiology Service Progress Note PATIENT NAME: Joseluis Hui DATE OF SERVICE: January 13, 2018 TIME: 10:47 AM PATIENT IDENTITY VERIFICATION COMPLETED USING TWO (2) METHODS: Patient confirmed name verbally and Date of . PATIENT GENDER DATA: Female. status: : No status: NO. PATIENT RELEVANT IMPLANT DATA REVIEWED: Not Applicable RADIOLOGY DEPARTMENT: General X-ray: Exam(s) Completed: Upper Extremity X-Ray(s): Wrist, right : PERIPHERAL IV DATA: Not applicable SIGNED BY: RT Iva January 13, 2018 10:47 AM PROGRESS Observed: 01/13/2018 Status: COMPLETED Source: [place] 10:34 AM [facility] REPOSITORY O ID: [id number] Author: Maxx Palacios Service: (none) Author Type: Physician Type: Progress Notes Filed: 01/13/2018 11:15 AM Note Text: Patient presents with: right hand and wrist pain: fell 3 days ago HPI: Right wrist pain: Duration: Fell 3 days ago, but hand started hurting yesterday. Location: Right hand and thenar prominence Character: Shooting yesterday. No pain at rest. Radiation: No. Aggravating: gripping Relieving: Resting on a pillow Pain relievers: Daily aspirin Associated: Tingling and numbness in the 3rd and 4th fingers. Bruise above the left elbow from fall. In PT for falling backward and hurting her neck a month ago. Pertinent negatives: MEDICATIONS: mupirocin (BACTROBAN) 2 % ointment Apply 1 application to affected area three times daily. Location: foot melatonin 3 mg Take 3 mg by mouth as needed. levothyroxine (SYNTHROID) 125 mcg tablet Take 147 mcg by mouth daily before breakfast. CALCIUM CARBONATE/VITAMIN D3 (VITAMIN D-3 ORAL) Take by mouth. busPIRone (BUSPAR) 10 mg tablet Take 10 mg by mouth. 1 tablet in AM AND 2 tablets at bedtime PRN sertraline (ZOLOFT) 100 mg tablet Take 100 mg by mouth once daily. lamoTRIgine (LAMICTAL) 100 mg tablet Take 150 mg by mouth once daily. Omeprazole (PRILOSEC) 40 mg capsule Take 1 capsule by mouth once daily. ALLERGIES: ALLERGIES Allergen Reactions - Cetirizine Unknown - Codeine Intolerance - Vistaril [Hydroxyzi* mental status changes VITALS: BP 104/64 Pulse 71 Temp 36.8 ?C (98.3 ?F) (Tympanic) Resp 16 Wt 74.8 kg (164 lb 12.8 oz) BMI 32.19 kg/m? PHYSICAL EXAM: GEN: pleasant, no acute distress, alert HEENT: PERRL, EOMI, MMM NECK: supple, no lymphadenopathy, no thyromegaly, no midline tenderness HEART: regular rate, regular rhythm, RUSB murmur LUNGS: clear to auscultation, no wheezes or crackles, no increased WOB EXT: no clubbing, no cyanosis, no edema. No pain with palpation of the elbow or ROM. WRIST: No erythema, edema, ecchymosis, or deformity. Pain with radial deviation>ulnar. Tender at the 1st MCP joint. No snuff box pain. Tender distal radius. Discomfort with palpation of the dorsal 3rd and 4th metacarpals. ASSESSMENT/PLAN: 1. Wrist pain, right - ICD9: 719.43, ICD10: M25.531 - XR WRIST GENERAL 3V PA/LAT/OBL RT - negative. Radiology interpretation is pending. The patient will be notified if there is a significant finding in the report not discussed at the time of the visit. Placed in thumb spica wrist splint with improvement in comfort. Maxx Palacios MD CNOV Observed: 01/13/2018 Status: COMPLETED Source: [place] 10:15 AM [facility] REPOSITORY Office Visit (WSTR) JOSELUIS HUI ([id number]) 1945 F Date Time Provider Department 01/13/18 10:15 AM MAXX PALACIOS WSTR During your visit today, we recorded the following information about you: Temperature Pulse Respiration Blood pressure 98.3 degrees 71/minute 16/minute 104/64 Weight 74.8 kg Maxx Palacios MD 01/13/2018 11:15 AM Signed Patient presents with: right hand and wrist pain: fell 3 days ago HPI: Right wrist pain: Duration: Fell 3 days ago, but hand started hurting yesterday. Location: Right hand and thenar prominence Character: Shooting yesterday. No pain at rest. Radiation: No. Aggravating: gripping Relieving: Resting on a pillow Pain relievers: Daily aspirin Associated: Tingling and numbness in the 3rd and 4th fingers. Bruise above the left elbow from fall. In PT for falling backward and hurting her neck a month ago. Pertinent negatives: MEDICATIONS: mupirocin (BACTROBAN) 2 % ointment Apply 1 application to affected area three times daily. Location: foot melatonin 3 mg Take 3 mg by mouth as needed. levothyroxine (SYNTHROID) 125 mcg tablet Take 147 mcg by mouth daily before breakfast. CALCIUM CARBONATE/VITAMIN D3 (VITAMIN D-3 ORAL) Take by mouth. busPIRone (BUSPAR) 10 mg tablet Take 10 mg by mouth. 1 tablet in AM AND 2 tablets at bedtime PRN sertraline (ZOLOFT) 100 mg tablet Take 100 mg by mouth once daily. lamoTRIgine (LAMICTAL) 100 mg tablet Take 150 mg by mouth once daily. Omeprazole (PRILOSEC) 40 mg capsule Take 1 capsule by mouth once daily. ALLERGIES: ALLERGIES Allergen Reactions - Cetirizine Unknown - Codeine Intolerance - Vistaril [Hydroxyzi* mental status changes VITALS: BP 104/64 Pulse 71 Temp 36.8 ?C (98.3 ?F) (Tympanic) Resp 16 Wt 74.8 kg (164 lb 12.8 oz) BMI 32.19 kg/m? PHYSICAL EXAM: GEN: pleasant, no acute distress, alert HEENT: PERRL, EOMI, MMM NECK: supple, no lymphadenopathy, no thyromegaly, no midline tenderness HEART: regular rate, regular rhythm, RUSB murmur LUNGS: clear to auscultation, no wheezes or crackles, no increased WOB EXT: no clubbing, no cyanosis, no edema. No pain with palpation of the elbow or ROM. WRIST: No erythema, edema, ecchymosis, or deformity. Pain with radial deviation>ulnar. Tender at the 1st MCP joint. No snuff box pain. Tender distal radius. Discomfort with palpation of the dorsal 3rd and 4th metacarpals. ASSESSMENT/PLAN: 1. Wrist pain, right - ICD9: 719.43, ICD10: M25.531 - XR WRIST GENERAL 3V PA/LAT/OBL RT - negative. Radiology interpretation is pending. The patient will be notified if there is a significant finding in the report not discussed at the time of the visit. Placed in thumb spica wrist splint with improvement in comfort. Maxx Palacios MD Referring Provider: SELF [200] Allergies As of Date: 01/13/2018 Noted Allergy Reaction CETIRIZINE 02/03/2016 16 - Unknown CODEINE 11/05/2006 5 - Intolerance VISTARIL (HYDROXYZINE HCL) 12/10/2006 Comments: mental status changes Date Reviewed: 01/13/2018 Reviewed by: Estella Robertson LPN - Fully Assessed Reason for Visit: right hand and wrist pain [Other] Cmt: fell 3 days ago Primary Visit Diagnosis:Wrist pain, right [M25.531] Order(s):XR WRIST GENERAL 3V PA/LAT/OBL RT [[id number]] Order #: [id number] FUTURE Prescriptions as of 01/13/2018 Sig: MUPIROCIN 2 % TOPICAL OINTMENT Apply 1 application to affect* MELATONIN 3 MG TABLET Take 3 mg by mouth as needed. LEVOTHYROXINE 125 MCG TABLET Take 147 mcg by mouth daily b* VITAMIN D-3 ORAL Take by mouth. BUSPIRONE 10 MG TABLET Take 10 mg by mouth. 1 tablet* SERTRALINE 100 MG TABLET Take 100 mg by mouth once luis* LAMOTRIGINE 100 MG TABLET Take 150 mg by mouth once luis* OMEPRAZOLE 40 MG CAPSULE,PIPPA* Take 1 capsule by mouth once * Problem List As Of Date 01/13/2018 Noted Resolved CAROTID ART OCCL-NO INFARCT [I65.29] INVALID FOR* VENTRAL HERNIA NOS [K43.9] INVALID FOR* ENTHESOPATHY, SITE NOS [M77.9] INVALID FOR* DIABETES MELLITUS TYPE II-UNCOMPL [E11.9] INVALID FOR* Abdominal pain, unspecified site [R10.9] INVALID FOR* Biliary dyskinesia [K82.8] INVALID FOR* Personal history of colonic polyps [Z86.010] INVALID FOR* Encounter Status:Closed by MAXX PALACIOS MD on 01/13/18 WRIST MIN 3 VIEWS Observed: 01/12/2018 Status: F Source: [place] 10:51 AM [facility] REPOSITORY [facility] Imaging Services [address] [place] [address] Wrist min 3 Views MR#: [id number] Acct: [id number] Name: JOSELUIS HUI Rep #: [id number] : 1945 F 73 From: Suleman Chan MD PCP: Octavia Nichols DO Status: REG CLI Study: Wrist min 3 Views Date of Exam: 01/12/18 Exam# [id number] Ordering Dr: Aylin Sierra STUDY: X-RAY - RIGHT WRIST REASON FOR EXAM: Female, 73 years [...] Normal visualized metacarpal bones. Soft tissue swelling. RAD/Wrist min 3 Views IMPRESSION: Soft tissue swelling. Nondisplaced avulsion fracture of the triquetrum. Electronically Signed: Suleman Chan MD at 11:10 EDT Tel [phone], Service support , CC: Aylin Sierra WEATHER [place]; Octavia Richie DO Quill Buncher And Sorter: Signed RE-EVALUATION - PT (1) Observed: 12/24/2017 Status: F Source: [place] 4:29 PM [facility] REPOSITORY [facility] Physical [facility] [address] [place] [address] Fax REEVALUATION / MEDICARE RECERTIFICATION PHYSICAL THERAPY MR#: [id number] Acct: [id number] Name: JOSELUIS HUI Rep #: [id number] : 1945 72 From: Samy Johnson PT, Cert. MDT, OCS Referring Dr.: Octavia Nichols DO Status: REG RCR Insurance: [employer] MEDICAID Octavia Nichols, It has been my pleasure to treat JOSELUIS HUI over the last 9 visits for Cervical neck pain, cervical muscle spasm. Please see the progress note below for an update on the physical therapy plan of care! Subjective: PT is helping improved with ablity to perform ADL'S and cervical rotation. Patient sleeping better..denies paratthesia/tingling. Ocassionally PERALTA. Objective/Function: POSTURE:FOWARD HEAD POSTURE,ROUNDED SHOULDERS. NEURO: DENIES PARATHESIA/TINGLING ,REFLEXES C5-6-7 1/. MMT:BUE 4/5,4-/5 SHOULDER. CERVICAL ROM: flexion min loss pain ,left cervical rotation/lateral [...] Pt will report ability to return to brand planner such as mowing and vacuuming without limitation. Goal Time Frame: 4-6 Weeks Goal 5:: Pt will be independent with HEP to sustain gains made in the clinic. Goal Time Frame: 4-6 Weeks Anticipated Interventions Patient/Client Instruction: Educate patient on: [...] do not hesitate to contact me at [phone] by phone or if you have questions or concerns regarding this new plan of care! Sincerely, Samy Johnson PT, <Electronically signed by Samy Johnson PT, Cert. T, OCS> 12/24/17 1629 CC: Octavia Nichols DO VEDA Signed For Medicare only, by signing this I certify the plan of care. Physicians Signature Date DIAG MAMM W/CAD, Observed: 12/10/2017 Status: F Source: [place] B[place] 1:41 PM [facility] REPOSITORY [facility] Imaging Services [address] [place] [address] DIAG MAMM W/CAD, BILAT MR#: [id number] Acct: [id number] Name: JOSELUIS HUI Rep #: [id number] : 1945 F 72 From: Jonny Lovelace MD PCP: Octavia Nichols DO Status: REG CLI Study: DIAG MAMM W/CAD, BILAT Date of Exam: 12/10/17 Exam# [id number] Ordering Dr: Karen Gandhi MAMMOGRAPHY - BILATERAL SCREENING REASON FOR EXAM: Female, 72 years old. Routine annual screening examination. Right breast lumps PERTINENT HISTORY: Non-contributory. TECHNIQUE: Digital examination. Mediolateral oblique (MLO) and craniocaudad (CC) views of both breasts were obtained along with 3D tomosynthesis. CAD: CAD was performed on this study. COMPARISON: 01/05/2017 FINDINGS: Breast Composition: There are scattered areas [...] delay biopsy of a clinically suspicious abnormality. [id number] Electronically Signed: Kamar Lovelace MD at 14:52 EDT , Service support , CC: GEETA Gandhi; Octavia Nichols DO Quill Buncher And Sorter: Signed INITAL EVALUATION (1) Observed: 11/25/2017 Status: F Source: [place] - [place] 5[facility]56 PM [facility] Physical [facility] [address] [place] [address] Fax REHABILITATION SERVICES INITIAL EVALUATION MR#: [id number] Acct: [id number] Name: JOSELUIS HUI Rep #: [id number] : 1945 72 From: Samy Johnson PT, Cert. MDT, OCS Referring Dr.: Octavia Nichols DO Status: REG RCR Insurance: [employer] MEDICAID Patient's Visit Information JOSELUIS HUI is a 72 year old F referred to Physical Therapy by Octavia Nichols with a diagnosis of Cervical neck pain, cervical muscle spasm. Date of Evaluation: 11/25/17 Physical Therapist: Samy Johnson PT, - Visit Plan Frequency: 2x /Week Duration: 4 Weeks Plan: Light intensity soft tissue mobilization, sub occipital release, and manual traction only. Postural strengthening [...] B UT and shoulder pain but is now only reporting a dull ache in her suboccipital and midline cervical spine. Her symptoms will shift side to side. She fell again 11/21/17 when she tripped over something but this time she fell forward. This is the first time she has fallen in a while. Aggrevating factors: riding in car, looking to the L. Easing factors: heat, medication. 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 Denies n/t in UEs, had some dizziness and some vision [...] 25, extension 30, L rotation* 35, R rotation 43, R LF 30, L LF 28. B shoulder ROM WFL. NEURO: Dermatomes intact, myotomes intact, B C5/6/7 DTR 2+. MMT: 4/5 gtrossly except 4-/5 shoulder - Special Tests Sharp Lakia: Negative Vertebral Artery Test: Negative Alar Ligament Test: Negative Comments: Tectorial [...] Pt will report ability to return to brand planner such as mowing and vacuuming without limitation. Goal Time Frame: 4-6 Weeks Goal 5:: Pt will be independent with HEP to sustain gains made in the clinic. Goal Time Frame: 4-6 Weeks - Rehabilitation Potential Physical Therapy Diagnosis: Pt is a 72 y/o female referred for cervical neck pain and muscle spasm. This arised from a fall backwards 9 days ago when she hit her head. Her symptoms are now localized to the L>R subocciptal and cervical paraspinals. This is worsened with L rotation and sustained postures. Her symptoms are consistent with a WAD type injury. She has activity restrctions that include difficulty looking over her shoulder and looking down for a prolonged period of time. This affects her participation with hobbies such as sewing. Pt will benefit from skilled PT to address her mentioned impairments to maximize function. Rehabilitation Potential: Good - Anticipated Interventions Patient/Client Instruction: [...] decrease soft tissue restriction, To increase flexibility/ROM Thank you for the opportunity to evaluate your patient. For Medicare and Medicare HMO plans, please review the plan of care and approve it. It will need to be FAXED BACK to us at [phone] for Medicare purposes. Please let me know if there are questions or concerns regarding this plan of care. Physician Signature: Date: <Electronically signed by Samy Johnson PT, Cert. T, OCS> 11/25/17 1756 CC: Octavia Nichols DO VEDA Signed For Medicare only, by signing this I certify the plan of care. Physicians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 INVALID FOR* DIABETES MELLITUS TYPE II-UNCOMPL [E11.9] INVALID FOR* Abdominal pain, unspecified site [R10.9] INVALID FOR* Biliary dyskinesia [K82.8] INVALID FOR* Personal history of colonic polyps [Z86.010] INVALID FOR* Other instructions from your clinician: Treatment for Viral Upper Respiratory Tract Infections Your body will kill off the virus by itself. Additionally, you can prime your body's immune system. This may help you get better more quickly. 1. Drink lots of fluids - at least one gallon of non-caffeinated liquids per day 2. Make sure you are eating well 3. Get plenty of rest - at least 8 hours of sleep per night for adults and more for children We do not have any medications that kill off these viruses. Antibiotics are used to treat bacterial infections; however, they are not active against viral infections. There are some things that might help you feel better, though. 1. Vaporizers, humidifiers, hot showers, and hot fluids help open respiratory and sinus passages 2. Perkins Nasal Saunemin may offer relief of nasal and head congestion 3. Loi's Vapor Rub placed on a hot towel and draped over the head may relieve congestion 4. Tylenol and Advil help control fevers and headaches 5. Salt water gargles help relieve sore throats 6. Chloraceptic spray or throat lozenges may also help relieve sore throat symptoms 7. Mucinex will help loosen up secretions and also provide relief from a cough Occasionally, viral infections turn into something more serious. You should see your doctor or return to the Urgent Care if: 1. You have fevers for longer than five days 2. You have fevers above 102 degrees 3. You are still sick after 10 days 4. You have shortness of breath or wheezing 5. After several days you are getting worse rather than better Medications Discontinued During This Encounter lamoTRIgine (LAMICTAL) 150 mg tablet 01/16/2016 09/25/2017 Class: Historical Med Sig: Disc: Reason for discontinue is not on file. Encounter Status:Closed by APPLE SHULTZ on 09/25/17 CHEST PA AND LATERAL Observed: 08/27/2017 Status: F Source: NERINX 2:44 PM [facility] REPOSITORY [facility] Imaging Services [address] [place] [address] Chest PA and Lateral MR#: [id number] Acct: [id number] Name: JOSELUIS HUI Rep #: [id number] : 1945 F 72 From: Katie Hopkins MD PCP: Octavia Nichols DO Status: REG CLI Study: Chest PA and Lateral Date of Exam: 08/27/17 Exam# [id number] Ordering Dr: Octavia Nichols DO XR Chest 2 Views INDICATION: cough COMPARISON: None FINDINGS: Heart size and pulmonary vascularity are within normal limits. The lungs are clear without evidence of airspace consolidation or pleural effusion. The osseous structures are grossly unremarkable. RAD/Chest PA and Lateral IMPRESSION: No radiographic evidence of acute intrathoracic disease. at 6848 Reported and signed by: Katie Hopkins MD Electronically Signed: Katie Hopkins MD at 15:45 EDT Tel , Service support , CC: Octavia Nichols DO Quill Buncher And Sorter: Signed 12 LEAD ELECTROCARDIOGRAM Observed: 08/02/2017 Status: F Source: [place] 2:07 PM [facility] REPOSITORY [facility] Cardiovascular Services [address] [place] [address] 12 Lead EKG 07/28/17 1143 MR#: [id number] Acct: [id number] Name: JOSELUIS HUI Rep #: [id number] : 1945 72 From: Haseeb Tinoco MD Attending Dr: Status: DEP ER Ordering Dr: Kristian Sauceda MD Date: 07/28/17 Location: ED Sex: F C Admitted: Test Reason : NUMBNESS Blood Pressure : / mmHG Vent. Rate : 052 BPM Atrial Rate : 052 BPM P-R Int : 166 ms QRS Dur : 100 ms QT Int : 438 ms P-R-T Axes : 030 -09 028 degrees QTc Int : 407 ms Sinus bradycardia Otherwise normal ECG Confirmed by HASEEB TINOCO ([id number]), marketing editor KATIE MELO ([id number]) on 08/02/2017 2:06:31 PM Referred By: Octavia Nichols Confirmed By:HASEEB TINOCO 08/02/17 1406 Date Haseeb Tinoco MD CC: Octavia Nichols DO; Kristian Sauceda MD Signed EMERGENCY DEPARTMENT Observed: 07/28/2017 Status: F Source: [place] SUMMARY 5:11 PM [facility] REPOSITORY [facility] Medical Records Department [address] [place] [address] Emergency Department Summary 07/28/17 1214 MR#: [id number] Acct: [id number] Name: JOSELUIS HUI Rep #: [id number] : 1945 72 From: Kristian Sauceda MD PCP: Octavia Nichols DO Status: DEP ER - ER Visit Summary Date of Service: 07/28/17 Chief Complaint: Problems with vision History of Present Illness: The patient is a [address] Nichols and Dr. Grimm. Patient reports that she was urinating today when she began choking. She had her dentures and and when she removed these she vomited multiple times. She reports that immediately thereafter she had vision from her right eye that appeared like she was looking through a crystal. This lasted approximately 30-45 minutes. She has a headache that began the same time as well. As a pressure on the right side of her forehead is 7 out of 10 severity. She denies any numbness, weakness, aphasia, slurred speech, vertigo, or other complaints. Physical Examination: Vitals: Stable. Afebrile. Neurological: Cranial nerves II through XII are intact. 5 out of 5 strength throughout. Normal sensation to light touch throughout. Normal votgcr-obbt-ppblfo and tokm-thmb-gnln bilaterally. Normal gait. General: A AND O x 3. NAD. Cardiovascular exam: Regular rate and rhythm, no murmur, rub or gallop. Respiratory exam: Clear to auscultation bilaterally. No wheezes or stridor. Abdominal exam: Soft, nontender, nondistended, normal bowel sounds. No peritoneal signs. Extremity: No clubbing, cyanosis, or edema. Test Results: CT brain shows chronic changes. EKG sinus bradycardia 52 with no acute changes. Is unchanged from 2016. UA is negative. Chem-7 is more for BUN of 19. CBC is marked for lymphocytes of 18. Emergency Department Course and Treatment: Patient was treated Zofran p.o. She is resting comfortably. Treatment Plan: Patient was discussed with Dr. Oleary. He has that should she be sent over to the [place] [facility]. She will be discharged to there. Disposition: To home in improved and stable condition. Impression: 1. Transient visual changes. This note was generated with [employer] dictation software. It may contain incorrect words, spelling, and punctuation that were not noted in review of the chart prior to signing ED Disposition - Plan for ED Patient: Disposition: Home or Assisted Living Chief Complaint: Numb/Ting Instructions: ED Blurred Vision Referrals: Mark Oleary MD [STAFF PHYSICIAN] - 07/28/17 What to do if you have Problems For any increased pain, shortness of breath, bleeding, nausea or vomiting, chest pain, or any unexpected problems, contact your Primary Care Provider. Call [facility] ([phone]) or report to the closest Emergency Room. Call 911 if necessary. 07/28/17 1711 <Electronically signed by Kristian Sauceda MD> Date Kristian Sauceda MD Cosigner Signature (If Indicated): Date CC: Octavia Nichols DO URINALYSIS, COMPLETE Collected: 07/28/2017 Status: F Source: NERINX 11:50 AM [facility] REPOSITORY Order Comment: Order Date: 07/28/17 How was Urine Obtained? CLEAN CATCH TYPE CODE TESTS RESULT OUT OF RANGE REFERENCE UNITS LAB L400.3000 Yellow COLOR Normal Yellow LAB L400.3050 Clear Normal CLARITY Clear LAB L400.3200 Normal mg/dl Normal GLUCOSE, UR Normal LAB L400.3300 Negative mg/dL Normal BILIRUBIN URINE Negative LAB L400.3400 Negative mg/dl Normal KETONE UR Negative LAB L400.3465 1.002-1.030 Normal SP.GR. DIPSTX 1.010 LAB L400.3550 5.0 - 8.0 pH UR Normal 7.0 LAB L400.3600 Negative mg/dl PROT Normal DIPSTX Negative LAB L400.3700 Normal mg/dl Normal UROBILI Normal LAB L400.3750 Negative Normal NITRITE UR Negative LAB L400.3780 Negative /ul Normal OCCULT BLOOD-UR Negative LAB L400.3800 Negative /ul High LEUK 25 ESTERASE LAB L400.4050 0-5 /hpf WBC Normal 0-5 SEEN LAB L400.4100 0-5 /hpf 0 Normal RBC-UA SEEN LAB L400.4150 5-10 /hpf SQUAM Normal EPI 0-5 SEEN LAB L400.4300 None Seen /hpf 0 Normal BACTERIA SEEN LAB L400.4350 <or=2+ /hpf 0 Normal MUCUS, URINE SEEN Performed By: #### L400.0001 #### [facility] [address] [place], [address] BRAIN/HEAD WITHOUT Observed: 07/28/2017 Status: F Source: [place] CONTRAST 11:09 AM [facility] REPOSITORY [facility] Imaging Services [address] [place] [address] Brain/Head without Contrast MR#: [id number] Acct: [id number] Name: JOSELUIS HUI Rep #: [id number] : 1945 F 72 From: Suleman Chan MD PCP: Octavia Nichols DO Status: REG ER Study: Brain/Head without Contrast Date of Exam: 07/28/17 Exam# [id number] Ordering Dr: Kristian Sauceda MD STUDY: CT BRAIN WITHOUT CONTRAST REASON FOR EXAM: Female, 72 years old. Headaches. Choking episode. RADIATION DOSAGE (If Supplied By Facility): CTDIvol = ( 44.99 ) mGy, DLP = ( 779.24 ) mGycm TECHNIQUE: Transaxial CT imaging of the brain was performed without administration of intravenous contrast material. Individualized dose optimization techniques were used for this CT. COMPARISON: Comparison is made with prior study dated January 03, 2016. FINDINGS: Normal soft tissue structures. Normal calvarium. There is mild cerebral atrophy with widening of the extra- axial spaces and ventricular dilatation. There are areas of decreased attenuation within the white matter tracts of the supratentorial brain, consistent with microvascular disease changes. Normal basal ganglia and thalami. Normal brainstem. Normal cerebellum. There is no intracranial hemorrhage. There are no findings of an acute ischemic infarction. Normal visualized paranasal sinuses. CT/Brain/Head without Contrast IMPRESSION: Chronic involutional changes of the brain. Electronically Signed: Suleman Chan MD at 11:36 EDT Tel [phone], Service support , CC: Octavia Nichols DO; Kristian Sauceda MD Quill Buncher And Sorter: Signed CBC W/DIFF, AUTOMATED Collected: 07/28/2017 Status: F Source: [place] 11:01 AM [facility] REPOS[facility]ORY TYPE CODE TESTS RESULT OUT OF RANGE REFERENCE UNITS LAB L100.1000 4.4-11.0 K/mm3 Normal WBC 5.6 LAB L100.1200 4.2-5.4 M/mm3 Normal RBC 4.90 LAB L100.1300 12.0-15.0 g/dl Normal HGB 12.3 LAB L100.1400 37-47 % Normal HCT 39.0 LAB L100.1500 81-99 fL Low MCV 79.6 LAB L100.1600 27.0-32.0 pg Low MCH 25.1 LAB L100.1700 32-36 g/gl Low MCHC 31.5 LAB L100.1810 11.6-14.6 % Normal RDW CV 14.2 LAB L100.1820 35.1-43.9 fl Normal RDW SD 40.7 LAB L100.1900 150-450 K/mm3 Normal PLT 301 LAB L100.2000 6.2-12.0 fl Normal MPV 9.3 LAB L100.2100 47-70 % Normal NEUT% 69.8 LAB L100.2200 19-41 % Low LY% 18.4 LAB L100.2300 0-10 % Normal MONO% 8.2 LAB L100.2400 0-5 % Normal EO% 3.2 LAB L100.2500 0-1 % Normal BASO% 0.2 LAB L100.2550 0.0-0.9 % Normal IM GRAN % 0.200 Result Comment: IG% - Immature Granulocytes (promyelocytes, myelocytes and metamyelocytes) > 1% indicates that a LEFT SHIFT is Present. LAB L100.2620 2.0-7.7 X10 3/uL Normal Absolute Neut 3.9 LAB L100.2720 0.83-4.51 X10 3/ul Normal Absolute Lymph 1.03 Performed By: #### L100.0100 #### [facility] [address] [address] [place], [place], [address] BEDSIDE GLUCOSE Collected: 07/28/2017 Status: F Source: [place] 11:01 AM [facility] REPOS[facility] TYPE CODE TESTS RESULT OUT OF RANGE REFERENCE UNITS LAB L501.080 70-110 mg/dL Normal BEDSIDE GLU 109 Result Comment: MANAGEMENT OF PATIENT CARE PER NURSING PROTOCOL Performed By: #### L501.080 #### [facility] Point of Care [address] [place] [address] BASIC METABOLIC Collected: 07/28/2017 Status: F Source: [place] PROFILE (BMP) 11:01 AM [facility] REPOSITORY TYPE CODE TESTS RESULT OUT OF RANGE REFERENCE UNITS LAB L501.0100 74-106 mg/dL Normal GLU 106 Result Comment: Fasting Glucose result from 100 to 125 mg/dL suggests IMPAIRED HOMEOSTASIS per A.D.A. criteria. Please note revised GLUCOSE reference range effective 2017. LAB L501.1000 7-18 mg/dL High BUN 19 LAB L501.1100 0.55-1.02 mg/dL Normal CREAT,SERUM 0.58 Result Comment: The validity of the calculated GFR AND GFRAA in patients over 70 years has not been determined. Clinical correlation is essential. LAB L501.1110 >60 mL/min Normal EST GFR 108 Result Comment: Non- GFR Calc LAB L501.1115 >60 mL/min Normal EST GFR - AA 131 Result Comment: GFR Calc LAB L501.1255 ml/min Normal Estimated CRCL 38.94 LAB L501.1300 10-20 RATIO High BUN/CRE 32.6 LAB L501.2200 8.5-10 mg/dL Normal .1 CA 9.3 LAB L501.5300 136-14 mmol/L Normal 5 NA 141 LAB L501.5600 3.5-5. mmol/L Normal 1 K 4.2 LAB L501.5900 98-107 mmol/L Normal CL 103 LAB L501.6100 21.0-3 mmol/L Normal 2.0 CO2 30.0 LAB L501.6200 5-15 Normal GAP 8 Performed By: #### L500.2500 #### [facility] [address] [place], [address] ECHOCARDIOGRAM COMPLETE Observed: 07/22/2017 Status: F Source: [place] 3:10 PM [facility] Cardiovascular Services [address] [place] [address] Echo Complete 07/22/17 0855 MR#: [id number] Acct: [id number] Name: JOSELUIS HUI Rep #: [id number] : 1945 72 From: Haseeb Tinoco MD Attending Dr: Octavia Nichols DO Status: REG CLI Ordering Dr: Octavia Nichols DO Date: 07/22/17 Location: CVS Sex: F C Admitted: Reason For Study: Murmur Procedure This was a 2D Doppler, Color Flow transthoracic echocardiogram. Exam performed in department. Left Ventricle Moderate assymetric septal hypertrophy. The estimated ejection fraction is 65 %. Stage 1 diastolic dysfunction. No regional wall motion abnormalities noted. Right Ventricle Normal size and thickness. Normal systolic function. Atria Normal left atrium. Normal right atrium. Normal atrial septum. Mitral Valve The mitral valve is structurally normal. No prolapse or stenosis seen. Tricuspid Valve Normal tricuspid valve. Trivial tricuspid valve insufficiency. Right ventricular systolic pressure estimated to be 35 mmHg. Aortic Valve Trisinus/trileaflet aortic valve. Mild diffuse aortic valve thickening. Mild aortic stenosis. Trivial aortic valve insufficiency. Pulmonic Valve Normal pulmonic valve. Great Vessels [...] dimension: 4.2 cm LAV(MOD-bp) Indexed: 25.6 ml/m2 LAV(MOD-sp2): 43.8 ml LAV(MOD-sp4): 46.8 ml RA A4 area: 10.9 cm2 Doppler Measurements AND Calculations MV E max marii: 57.8 cm/sec Lat Peak E' Marii: 6.4 cm/sec Med Peak E' Marii: 4.6 cm/sec MV A max marii: 89.1 cm/sec E/E' lat: 9.0 E/E' med: 12.4 MV E/A: 0.65 Ao V2 max: 211.9 cm/sec LV V1 max: 107.5 cm/sec SV(LVOT): 92.5 ml Ao max P.1 mmHg LV V1 max P.6 mmHg Ao V2 mean: 142.0 cm/sec LV V1 mean P.5 mmHg Ao mean P.0 mmHg LV V1 mean: 75.0 cm/sec Ao V2 VTI: 43.0 cm LV V1 VTI: 25.6 cm LEON(I,D): 2.1 cm2 LEON(V,D): 1.8 cm2 PA V2 max: 100.9 cm/sec TR max marii: 271.7 cm/sec TR max P.5 mmHg Interpretation Summary The estimated ejection fraction is 65 %. Stage 1 diastolic dysfunction. Right ventricular systolic pressure estimated to be 35 mmHg. Mild aortic stenosis. Compared to echo report dated 02/01/2012, no appreciable changes noted. Ordering Physician: Octavia Nichols Referring Physician: Octavia Nichols Performed By: Leslee Schaffer RDCS 07/22/17 1510 Date Haseeb Tinoco MD CC: Octavia Nichols DO Date Dictated: 07/22/17 0855 Date Transcribed: 07/22/17 1510 Quill Buncher And Sorter: Signed CAROTID DUPLEX Observed: 07/14/2017 Status: F Source: NERINX ULTRASOUND 8:29 PM [facility] REPOSITORY [facility] Cardiovascular Services [address] [place] [address] Carotid Duplex Ultrasound 07/13/17918 MR#: [id number] Acct: [id number] Name: JOSELUIS HUI Rep #: [id number] : 1945 72 From: Finesse Barrios MD Attending Dr: Octavia Nichols DO Status: REG CLI Ordering Dr: Octavia Nichols DO Date: 07/13/17 Location: [facility] Sex: F C Admitted: Reason For Study: right carotid bruit Rt. Velocities/BP Lt. Velocities/BP Prox CCA 116/37.7 cm/sec. Prox CCA 110/33.0 cm/sec. Mid CCA 101/41.6 cm/sec. Mid CCA 84.9/27.5 cm/sec. Dist CCA 89.6/34.6 cm/sec. Dist CCA 96.6/33.8 cm/sec. Prox ICA 49.2/21.1 cm/sec. Prox ICA 95.1/36.1 cm/sec. Mid ICA 81.5/42.8 cm/sec. Mid ICA 95.1/41.6 cm/sec. Dist ICA 183/57.6 cm/sec. Dist ICA 150/64.7 cm/sec. Rt. ICA/CCA = 1.8. Lt. ICA/CCA = 1.8. Prox ECA 123/26.7 cm/sec. Prox ECA 132/29.1 cm/sec. Rt. Vert. 55.4/19.3 cm/sec. Lt. Vert. 58.9/26.7 cm/sec. Right Extracranial There is intimal thickening but no significant atherosclerotic plaque noted in the right common carotid artery. There is homogeneous, smooth atherosclerotic plaque noted in the right internal carotid artery. The right internal carotid artery is very tortuous. There is homogeneous, smooth atherosclerotic plaque noted in the right external carotid artery. Antegrade flow is noted in the right vertebral artery. Left Extracranial There is intimal thickening but no significant atherosclerotic plaque noted in the left common carotid artery. There is intimal thickening but no significant atherosclerotic plaque noted in the left internal carotid artery. The left internal carotid artery is very tortuous. There is intimal thickening but no significant atherosclerotic plaque noted in the left external carotid artery. Antegrade flow is noted in the left vertebral artery. Procedure Carotid Duplex 96138. The exam was diagnostic. Exam performed in department. Interpretation Summary Moderate (50-69%) stenosis right extracranial internal carotid. No significant atherosclerotic plaque or stenosis noted in the left internal carotid artery. Flow within the vertebral arteries is antegrade bilaterally. Ordering Physician: Octavia Nichols Performed By: Chilango Caballero RVRicardo 07/14/172027 Date Finesse Barrios MD CC: Octavia Richie DO Date Dictated: 07/13/17918 Date Transcribed: 07/14/172027 Quill Buncher And Sorter: Signed ALLERGIES ALLERGIES DATE TYPE / NAME / CODE REACTION SEVERITY SOURCE CODE 03/01/2018 Drug hydroxyzine Rash [place] Allergy/41 HCl/[id number](RX Community 9617232( NORM) [facility] OME CT) Repository 03/01/2018 Drug hydroxyzine Rash [place] Allergy/41 pamoate/[id number] [facility] [id number]( 3(RXNORM) [facility] OME CT) Repository 03/01/2018 Drug codeine/[id number] Upset Stomach [place] Allergy/41 0(RXNORM) [facility] [id number]([facility]) Repository 02/03/2016 DRUG CETIRIZINE UNKNOWN [address] [id number]( Repository OMED CT) 12/10/2006 DRUG HYDROXYZINE HCL [address] [id number]( Repository OMED CT) 11/05/2006 DRUG CODEINE INTOLERANCE [address] [id number]( Repository OMED CT) ENCOUNTERS ENCOUNTERS ADMIT/DISCHARGE ACCOUNT NUMBER ADMITTING ENCOUNTER LOCATION SOURCE CLASS 06/02/2018 [id number] Ambulatory [facility] ding:PT Repository 05/19/2018 [id number] Ambulatory Building:[facility] Practices Repository 05/18/2018/05/18/19 [id number] Ambulatory BBuilding:OL [place] [address] [place] [address] Repository 05/02/2018 [id number] Ambulatory [facility] ding:LAB Repository 03/16/2018/03/16/20 [id number] Ambulatory [address] ding:PT Repository 03/03/2018 [id number] Ambulatory BMSBuilding: [place] BMS.CF.[facility] Repository 03/03/2018/03/03/20 [id number] Ambulatory [address] ding:ENRoom: Repository AC12 01/18/2018/01/19/20 [id number] Ambulatory BMSBuilding: [place] 18 [facility] Repository 01/13/2018/01/14/20 [id number] Emergency [address] ding:ED Repository 01/13/2018/01/14/20 [id number] Ambulatory [address] Repository 01/13/2018/01/15/20 [id number] Ambulatory [address] Repository 01/12/2018 [id number] Ambulatory [facility] ding:MTRAD Repository 12/10/2017 [id number] Ambulatory [facility] ding:OPBI Repository 11/21/2017/11/22/19 [id number] Emergency [address] ding:ED Repository 10/14/2017/10/15/19 [id number] Ambulatory [address] ding:OLAB [facility] Repository 09/25/2017/09/28/19 [id number] Ambulatory [address] Repository 08/27/2017 [id number] Ambulatory [facility] ding:RAD.FUT Repository URE 07/28/2017/07/29/19 [id number] Emergency [address] ding:ED Repository 07/22/2017 [id number] Ambulatory BMSBuilding: [facility] Repository 07/22/2017 [id number] Ambulatory [facility] ding:[facility] Repository 07/13/2017 [id number] Ambulatory [facility] ding:[facility]S Repository PAYERS PAYERS ENCOUNTER GUARANTOR PAYER SUBSCRIBER SOURCE 06/02/2018 JOSELUIS Call Primary JOSELUIS [id number] Insurance:[facility] REBAB: [facility] JIMMY *IN [facility] [id number] Number: Repository [id number]: (460) [id number] [phone] (HP) Date:3308-68-80[facility] CLAIMS [address], [place] [address]UF: 06/02/2018 Secondary NOT GIVENUNK [place] Insurance:SELF PAY [facility] Number: Effective Repository Date:2018-04-27 05/19/2018 [facility] Primary [facility]: Insurance:[employer]: [facility] [id number] [facility] [id number] Jimmy Number: [id number] [address], [place] [address], [place] [address]Nam: (853) Date:8014-23-73Elmp 56[address]Rvx: Name:[phone] (HP) (HP)Tel: [phone], [place] [phone] (WP) [id number]: 05/19/2018 Secondary Joseluis S OHIP Practices Insurance:[employer] [facility]: Repository [facility] [facility] [id number] Number: [id number] RdWooster, [place] Date:2011-03-21 24857Mwl: [phone] (HP) Name:[address] [place] [address]AP: 05/18/2018 [facility] [id number] INSCOPolicy Number: [id number] Repository JIMMY [id number] [address] [address], [place] Date:2018-05-18 [place] [address]~MELODY [id number] 75093Qqd: [phone] [email or web address] Name:NATTN Claims [phone] Tel: [phone] DeptPO Box (HP) (HP) [address], [place] 000[address]0000 (WP) [address]33[address]LE: 05/02/2018 JOSELUIS S Primary JOSELUIS Call Azam [id number] Insurance:MYCARE CRSC BUCHWALTERDOB: Community JIMMY *IN [facility] [id number], [place] Number: Repository [address]Luc: 330 [id number] [phone] (HP) Date:[id number] CLAIMS DE[address]PO [address] [place] [phone]: 05/02/2018 Secondary NOT GIVENUNK Azam Insurance:SELF PAY [facility] Number: Effective Repository Date:2018-05-02 03/16/2018 JOSELUIS S Primary NOT GIVENUNK [place] [id number] Insurance:MYCARE CRSC Community JIMMY *IN [place] Number: Repository [address]Okb: 330 [id number] [phone] () Date:[id number] CLAIMS DEPTPO [address] [place] [phone]: 03/16/2018 Secondary NOT GIVENUNK [place] Insurance:SELF PAY [facility] Number: Effective Repository Date:2017-11-24 03/03/2018 JOSELUIS S Primary JOSELUIS S [place] [id number] Insurance:MYCARE CRSC BUCHWALTERDOB: Community JIMMY *IN [facility] [id number], [place] Number: Repository [address]Zoh: 330 [id number] [phone] () Date:[id number] CLAIMS DEPTPO [address] [place] [phone]: 03/03/2018 Secondary NOT GIVENUNK [place] Insurance:SELF PAY [facility] Number: Effective Repository Date:2018-03-03 03/03/2018 JOSELUIS S Primary JOSELUIS S Azam [id number] Insurance:MYCARE CRSC BUCHWALTERDOB: Community JIMMY *IN [facility] [id number], [place] Number: Repository [address]Ezv: 330 [id number] [phone] (HP) Date:5032-75-25AEKN CLAIMS [facility] [address], [place] [address]YE: 03/03/2018 Secondary NOT GIVENUNK [place] Insurance:SELF PAY [facility] Number: Effective Repository Date:2018-01-18 01/18/2018 Joseluis S Primary Joseluis S [place] [id number] Insurance:SUMMA CARE BuchwalterDOB: Community W[place]SON MEDICAREPolicy [id number], [place] Number: Repository [address]Xtm: 330 [id number] [phone] (HP) Date:2341-41-87DY [address] [place] [address] 216[address]WV: 01/18/2018 Secondary Joseluis S Azam Insurance:MEDICAIDPol [facility] Center[facility]: [facility] icy Number: [id number] Hospital [id number] Repository Date:2018-01-18 01/18/2018 Tertiary NOT GIVENUNK Azam Insurance:SELF PAY [facility] Number: Effective Repository Date:2018-01-18 01/13/2018 Joseluis S Primary Joseluis S [place] [id number] Insurance:SUMMA CARE BuchwalterDOB: Community WILSON MEDICAREPolicy [id number], [place] Number: Repository [address]Xrh: 330 [id number] [phone] (HP) Date:9318-85-69VZ [address] [place] [address] 09[address]SI: 01/13/2018 Secondary Joseluis S Azam Insurance:MEDICAIDPol BuchwalterDOB: Community icy Number: [id number] Hospital [id number] Repository Date:2018-01-13 01/13/2018 Tertiary NOT GIVENUNK [place] Insurance:SELF PAY [facility] Number: Effective Repository Date:2018-01-13 01/12/2018 Joseluis S Primary Joseluis S Azam [id number] Insurance:SUMMA CARE BuchwalterDOB: Community JIMMY MEDICAREPolic [id number], [place] Number: Repository [address]Tco: 330 [id number] [phone] (HP) Date:2010-58-50ZG [address] [address]HF: 01/12/2018 Secondary Joseluis S Azam Insurance:[facility]ID[facility] CenterD[facility]: Community icy Number: [id number] Hospital [id number] Repository Date:2018-01-12 01/12/2018 Tertiary NOT GIVENUNK Azam Insurance:SELF PAY [facility] Number: Effective Repository Date:2018-01-12 12/10/2017 Joseluis S Primary Joseluis S [place] [id number] Insurance:SUMMA CARE [facility] CenterterD[facility]: Community WILSON MEDICAREPolicy [id number], [place] Number: Repository [address]Kdn: (330 [id number] [phone] (HP) Date:6729-77-30SI [address] [address]AE: 12/10/2017 Secondary Joseluis S [place] Insurance:MEDICAIDH. C. Watkins Memorial HospitalB: [facility] icy Number: [id number] Hospital [id number] Repository Date:2017-12-07 12/10/2017 Tertiary NOT GIVENUNK Azam Insurance:SELF PAY [facility] Number: Effective Repository Date:2017-12-07 11/21/2017 Joseluis S Primary Joseluis S [place] [id number] Insurance:SUMMA CARE [facility] CenterterDOB: Community WILSON MEDICAREPolicy [id number], [place] Number: Repository [address]Wfv: 330 [id number] [phone] (HP) Date:8616-98-37VG [address] [address]RY: 11/21/2017 Secondary Joseluis S [place] Insurance:MEDICAIDTrinity HealthterDOB: Community icy Number: [id number] Hospital [id number] Repository Date:2017-11-21 11/21/2017 Tertiary NOT GIVENUNK [place] Insurance:SELF PAY [facility] Number: Effective Repository Date:2017-11-21 10/14/2017 [facility] [id number] MEDICARE HMOPolicy [id number] Repository [place] Number: [address] [place], [place] [id number] [address]~JANATX Date:2017-10-14 18119Wyu: 330 [email or web address] [id number] [phone] Tel: ([phone] Name:[facility] Box () () 362[facility] CentercliffordDENVER, [place] [address] (WP) [address]IP: 10/14/2017 Secondary [facility] Insurance:MEDICAID OF BUCHWALTERDOB: [facility] Number: [id number] Repository [id number] 2 JIM[address] Date:2017-10-14 - [place] [id number] [address]Qez: (330) Name:[facility]ap[facility] [phone] [address]Ygcukreu, [place] ()Tel: [phone]: (WP) [id number] 08/27/2017 [facility] S [facility]onaBar[facility] Clinics [facility] [id number] Insurance:[facility]: Community WILSON MEDICAREPolicy [id number] Hospital of Southern [place] MexicoOO[place], [place] Number: Repository [address]Lrd: 330) [id number] [phone] (HP) Date:5626-23-30CR [address] [facility], [place] [address]HQ: 08/27/2017 Secondary Joseluis S [place] Insurance:MEDICAIDPol BuchwalterDOB: [facility] Number: [id number] Hospital [id number] Repository Date:2017-08-27 08/27/2017 Tertiary NOT GIVENUNK Azam Insurance:SELF PAY [facility] Number: Effective Repository Date:2017-08-27 07/28/2017 Joseluis S Primary Joseluis S [place] [id number] Insurance:[facility] CARE [facility] CenterterDOB: Community WILSON MEDICAREPolicy [id number], [place] Number: Repository [address]Tzm: 330 [id number] [phone] (HP) Date:3087-27-20PM [address] [place] [address] 418[address]UA: 07/28/2017 Secondary Joseluis S Azam Insurance:MEDICAIDH. C. Watkins Memorial HospitalB: [facility] icy Number: [id number] Hospital [id number] Repository Date:2017-07-28 07/28/2017 Tertiary NOT GIVENUNK [place] Insurance:SELF PAY [facility] Number: Effective Repository Date:2017-07-28 07/22/2017 Joseluis S Primary Joseluis S Azam [id number] Insurance:[facility]ENTER[facility] CARE [facility] CenterterDOB: Community WILSON MEDICAREPolicy [id number], [place] Number: Repository [address]Tfg: 330 [id number] [phone] (HP) Date:0031-16-02PT [address] [place] [address]VX: 07/22/2017 Secondary Joseluis S [place] Insurance:MEDICAIDH. C. Watkins Memorial HospitalB: [facility] icy Number: [id number] Hospital [id number] Repository Date:2017-07-02 07/22/2017 Tertiary NOT GIVENUNK Azam Insurance:SELF PAY [facility] Number: Effective Repository Date:2017-07-22 07/22/2017 Joseluis S Primary Joseluis S Azam [id number] Insurance:[facility]ENTERA CARE [facility] CenterterDOB: Community WILSON MEDICAREPolicy [id number], [place] Number: Repository [address]Bjq: 330 [id number] [phone] (HP) Date:9156-67-93LY [address] [place] [address] 87[address]KO: 07/22/2017 Secondary Joseluis S [place] Insurance:MEDICAIDPol [facility] CenterB: Community icy Number: [id number] Hospital [id number] Repository Date:2017-07-02 07/22/2017 Tertiary NOT GIVENUNK [place] Insurance:SELF PAY [facility] Number: Effective Repository Date:2017-07-02 07/13/2017 Joseluis S Primary Joseluis S Azam [id number] Insurance:SUMMA [facility]B: Community WILSON MEDICAREPolicy [id number] Hospital RDWRUFUSGall[place], [place] Number: Repository [address]Swo: (751) [id number] [phone] Date:4018-89-88UF [address] [place], [place] [address]GZ: 07/13/2017 Secondary Joseluis S Azam Insurance:MEDICAIDH. C. Watkins Memorial HospitalB: [facility] icy Number: [id number] Hospital [id number] Repository Date:2017-07-02 07/13/2017 Tertiary NOT GIVENUNK Azam Insurance:SELF PAY [facility] Number: Effective Repository Date:2017-07-02
== END ==
PROVIDERS: Family Provider Internal Medicine; PCP Internal Medicine; Referring Provider Internal Medicine; Visit Provider Internal Medicine
DX: E11.9 Type 2 diabetes mellitus without complications (principal); E03.9 Hypothyroidism, unspecified
CPT/HCPCS: 36415; 80053; 80061; 81001; 82043; 82570; 83704; 84443; 85025

== ENCOUNTER 2018-06-02 09:00 | Outpatient (RCR) | payer MEDICARE, SELFPAY ==
--- NOTE | 2018-08-17 09:40 | HP.PTDCSUM ---
HP - PT D/C Summary It has been my pleasure to treat JOSELUIS HUI under orders from Octavia Nichols DO, for the diagnosis of MUSCLE SPASMS LOW BACK,MUSCUAR LUMBAR STRAIN for a total of 5 visit(s). Discharge Date: 06/02/18 Please see the following information for a summary of their discharge status. - Subjective Subjective: Patient states doing better ..no pain. Able to do mu ADL'S - Pain Left Back Pain Intensity (Out of 10): 0 - Overall Improvement % Improvement: 90 - Objective Objective/Function: POSTURE: MILD THORACIC KYPHOSIS. GAIT: NORMAL JULISSA MILD UNSEADY. MMT: quads/hams 4/5,hip flexion 4-/5. LUMBAR ROM: flexion min ,extension min loss,extension - Goals Goal 1:: Independant with HEP Goal Progress: Goal Met Goal 2:: Patient to be more aware of posture for ADL'S 90% of the time. Goal Progress: Goal Met Goal 3:: Patient to decrease low back pain by 50% or greater to improve function. Goal Progress: Goal Met Goal 4:: Patinet to improve lumbar ROM for function of recovery Goal Progress: Goal Met Goal 5:: Patient to improve strength BLE to 4/5 to improve function. Goal Progress: Goal Met Goal 6:: Patient to improve FATEMEH lumbar score by 5 points or greater. Goal Progress: Goal Met - Plan Plan: D/C - D/C Information Discharge Comments: salvatore yu If there are questions or concerns regarding this patient's physical therapy, please feel free to call me at [phone]. Thank you for the referral of this patient. Sincerely, Samy Johnson, PT, Cert MDT, OCS
--- NOTE | 2018-08-17 09:41 | HP.PTEVAL_ITS ---
Patient's Visit Information JOSELUIS HUI is a 73 year old F referred to Physical Therapy by Octavia Nichols DO with a diagnosis of MUSCLE SPASMS LOW BACK,MUSCUAR LUMBAR STRAIN. Date of Evaluation: 05/18/18 Physical Therapist: Samy Johnson PT, Cert MDT, OCS - Visit Plan Frequency: 2x /Week Duration: 4 Weeks Plan: D/C - Subjective Findings: This 73 y/o female presents to physical therapy with lumbar pain/sp asms. Patient fell last week on back at home mechanical fall. Patient has symmtrical lumbarspasms/ache,occassionally sharp pain. Patient symptoms worse with bending,lifting,housework ,ADL'S. Symptoms better with rest . Pain better with rest/sitting. Patient symptoms worse wit coughing/sneezing. Patient denies parathesia/tingling. Patienthas h/o falls and low back pain. Patient had no diagnostics. Patient symptoms affect QOL and ADL'S. SOCIAL: . VOCATION: RETIRED - Pain Left Back Pain Intensity (Out of 10): 0 - Objective POSTURE: mild foward posture ,mod thoracic kyphosis. GAIT: mild unsteady sway reciprocal pattern. PALPATION: tender L-S paraspinals /erctor spinalis. NEURO: denies parathesia/tingling ,reflexes L3-4,L4-5,L5-S1. SYMMRITIES: align. MMT: quads/hams 4-/5,hip 4/5,ankle 4/5. LUMBAR ROM: flexion min loss,extension min/mod loss,side glides min loss. FLEXABILITY: hams WFL - Special Tests L/S Slump test left side: Negative L/S Slump test right side: Negative L/S Left Straight Leg Raise: Negative L/S Right Straight Leg Raise: Negative Lumbar Standing: Flexion - Mechanical Response: No effect Lumbar Standing: Flexion - Symptoms During Testing: No effect Lumbar Standing: Flexion - Symptoms After Testing: No effect Lumbar Standing: Extension - Mechanical Response: No effect Lumbar Standing: Extension - Symptoms During Testing: Increases Lumbar Standing: Extension - Symptoms After Testing: No worse - Goals Goal 1:: Independant with HEP Goal Time Frame: 4-6 Weeks Goal 2:: Patient to be more aware of posture for ADL'S 90% of the time. Goal Time Frame: 4-6 Weeks Goal 3:: Patient to decrease low back pain by 50% or greater to improve function. Goal Time Frame: 4-6 Weeks Goal 4:: Patinet to improve lumbar ROM for function of recovery Goal Time Frame: 4-6 Weeks Goal 5:: Patient to improve strength BLE to 4/5 to improve function. Goal Time Frame: 4-6 Weeks Goal 6:: Patient to improve FATEMEH lumbar score by 5 points or greater. Goal Time Frame: 4-6 Weeks - Rehabilitation Potential Physical Therapy Diagnosis: This patient has symmtrical lumbar pain with pain with motion affects ADL'S and housework tasks thus benifit from skilled PT Rehabilitation Potential: Good - Anticipated Interventions Patient/Client Instruction: Educate patient on: Condition, Plan of Care For the Purpose of:: To decrease pain, To increase ROM, To increase oxygenation perfusion, To increase tolerance to activity/condition/position, To decrease level of supervision to perform tasks, To improve ability of physical actions for home/community/work/leisure, To improve health of tissue, To decrease soft tissue restriction, To increase flexibility/ROM, To reduce risk of recurrence, To improve health and function, To improve ability to perform tasks related to life management Therapeutic Exercise to Include: Strength training, Body mechanics, Postural training, Flexibilty training, Dynamic Lumbar Stabilization For the Purpose of:: To decrease pain, To increase ROM, To improve muscle performance and motor function, To increase tolerance to activity/condition/position, To improve ability of physical actions for home/community/work/leisure, To improve health of tissue, To decrease soft tissue restriction, To increase flexibility/ROM, To reduce risk of recurrence, To improve ability to perform tasks related to life management TENS: Yes IF ES: Yes Cryotherapy (ice pack, ice massage): Yes Thermo therapy (hot pack): Yes Ultrasound (thermal/non thermal): Yes For the Purpose of:: To decrease pain, To increase ROM, To improve nutrient delivery to tissue, To increase oxygenation perfusion, To improve health of tissue, To decrease soft tissue restriction Thank you for the opportunity to evaluate your patient. For Medicare and Medicare HMO plans, please review the plan of care and approve it. It will need to be FAXED BACK to us at [phone] for Medicare purposes. For Medicare only, by signing this I certify the plan of care. Please let me know if there are questions or concerns regarding this plan of care. Physician Signature: Date:
== END 2018-06-02 19:00 | disposition home or self-care (01) ==
LOC: PT 09:00
PROVIDERS: Family Provider Internal Medicine; PCP Internal Medicine; Referring Provider Internal Medicine; Visit Provider Internal Medicine
DX: M62.830 Muscle spasm of back (principal); S33.5XXD Sprain of ligaments of lumbar spine, subsequent encounter
CPT/HCPCS: 97110; 97162

== ENCOUNTER → 2018-08-08 09:29 | Outpatient (CLI) | payer MEDICARE, SELFPAY ==
[2018-03-03 10:10] VITALS: BMI 29.9
--- NOTE | 2018-08-08 09:40 | RAD_ITS ---
STUDY: X-RAY - LEFT HAND REASON FOR EXAM: Female, 73 years old. Pain at base of the thumb. Recent worsening pain. TECHNIQUE: 3 view(s) of the hand. COMPARISON: None. FINDINGS: Normal radiocarpal articulation. Normal distal radioulnar joint. There are calcifications in the triangular fibrocartilaginous complex. Normal visualized carpal bones. There is minimal degenerative joint disease of the scaphotrapezium / trapezoid articulation. The remainder of the carpal articulations are normal. There is degenerative arthrosis of the carpometacarpal (CMC) articulation of the thumb. Normal second through fifth carpometacarpal joints. Normal metacarpi. Normal metacarpophalangeal joint of the thumb. Normal interphalangeal joint of the thumb. Normal proximal and distal phalanges of the thumb. Normal metacarpophalangeal joints of the second through fifth fingers. There is diffuse articular joint space narrowing of the proximal and distal interphalangeal joints of the second through fifth fingers, but without erosive changes or periarticular soft tissue swelling. Normal phalanges of the second through fifth fingers. The soft tissue structures are unremarkable. RAD/Hand Min 3 Views IMPRESSION: Degenerative joint disease of the hand and wrist, as described above. Electronically Signed: Juan Harrington DO at 9:11 EDT Tel [phone], Service support ,
== END ==
PROVIDERS: Family Provider Internal Medicine; PCP Internal Medicine; Referring Provider Internal Medicine; Visit Provider Internal Medicine
DX: M79.642 Pain in left hand (principal)
CPT/HCPCS: 73130

== ENCOUNTER 2018-11-10 11:30 | Outpatient (RCR) | payer MEDICARE, SELFPAY ==
--- NOTE | 2018-10-19 16:22 | HP.PTEVAL_ITS ---
Patient's Visit Information JOSELUIS HUI is a 73 year old F referred to Physical Therapy by Octavia Nichols DO with a diagnosis of OA. Date of Evaluation: 10/19/18 Physical Therapist: Samy Johnson, PT, Cert MDT, OCS - Visit Plan Frequency: 2x /Week Duration: 4 Weeks Plan: AQUATIC PT FOR ROM/STRENGTENING BUE/LE,LUMBAR ROM/STRENGTHENING,ENDURANCE PROGRAM - Subjective Findings: This 73 y/o female presents to physical therapy with pain in multipe joint pain in back and hands . Patient seen DR lory Umana due to pain .Patient has symmtrical lumbar pain and cervical pain. Patient symptoms worse with walking standing affects ADL's and housework chores. Patient stated falling today on curb landed on left hip. Denies parathesia/tingling .Coughing/sneezing -. Bowel/bladder-. Patient sleeping okay at night. No x-rays recent. Pain affects QOL and function. Patient symptoms affects ability to perform ADL'S and housework chores.Patient has h/o of 2 THR. SOCIAL: . VOCATION: unemployed - Pain Bilateral Back Pain Intensity (Out of 10): 5 Pain Intensity Range: 10 Left Hip Pain Intensity (Out of 10): 5 Pain Intensity Range: 10 - Objective POSTURE: mild/mod thoracic kyphosis. GAIT: reciprocal patten. NEURO: intact. AROM: BUE WFL. CERVICAL ROM: flexion min loss,lateral flexion mod loss,rotation mod loss,extension mod. MMT:BUE grossly 4/5 shoulder 4-/5. LUMBAR ROM: flexion min loss ,extension mod loss ,side glides min loss. MMT: quad/hams 4/5,4-/5,hip abd 4-/5,ankle 4/5 - Goals Goal 1:: Independant with Aquatic PT Goal Time Frame: 2-4 Weeks Goal 2:: Patient to decrease pain by 50 % or greater to improve function Goal Time Frame: 2-4 Weeks Goal 3:: Patient to improve ADLS and housework tasks with min limiations Goal Time Frame: 2-4 Weeks Goal 4:: Patient to improve back owestry score by 5 points or greater to improve function. - Rehabilitation Potential Physical Therapy Diagnosis: This patient has lumbar ,neck and hip pain from OA thus will benifit from PT to decrease pain increase strength to improve ADL's and function . Rehabilitation Potential: Good - Anticipated Interventions Patient/Client Instruction: Educate patient on: Condition, Plan of Care For the Purpose of:: To decrease pain, To decrease swelling/inflammation, To improve muscle performance and motor function, To increase tolerance to activity/condition/position, To improve ability of physical actions for home/community/work/leisure, To improve health of tissue, To decrease soft tissue restriction, To increase flexibility/ROM, To reduce risk of recurrence, To improve ability to perform tasks related to life management Therapeutic Exercise to Include: Strength training, Postural training, Fle xibilty training, In an aquatic setting, Active ROM, Dynamic Lumbar Stabilization For the Purpose of:: To decrease pain, To improve muscle performance and motor function, To increase tolerance to activity/condition/position, To improve ability of physical actions for home/community/work/leisure, To improve health of tissue, To decrease soft tissue restriction, To increase flexibility/ROM, To improve ability to perform tasks related to life management Thank you for the opportunity to evaluate your patient. For Medicare and Medicare HMO plans, please review the plan of care and approve it. It will need to be FAXED BACK to us at [phone] for Medicare purposes. For Medicare only, by signing this I certify the plan of care. Please let me know if there are questions or concerns regarding this plan of care. Physician Signature: Date:
--- NOTE | 2018-11-10 11:57 | HP.PTDCSUM ---
- PT D/C Summary It has been my pleasure to treat JOSELUIS HUI under orders from Octavia Nichols DO, for the diagnosis of OA for a total of 5 visit(s). Discharge Date: 11/10/18 Please see the following information for a summary of their discharge status. - Subjective Subjective: Doing well .can do - Pain Bilateral Back Pain Intensity (Out of 10): 0 Left Hip Pain Intensity (Out of 10): 0 RLE Pain Intensity (Out of 10): 0 - Overall Improvement % Improvement: 60 - Objective Objective/Function: POSTURE: mild foward posture. GAIT: reciprocal pattern mild foward posture. MMT: quads/hams4/5,ankle 4/5,ankle 4/5. LUMBAR ROM: flexion min loss,extension mod loss,side glides mod - Goals Goal 1:: Independant with Aquatic PT Goal Progress: Goal Met Goal 2:: Patient to decrease pain by 50 % or greater to improve function Goal Progress: Goal Met Goal 3:: Patient to improve ADLS and housework tasks with min limiations Goal Progress: Goal Met Goal 4:: Patient to improve back owestry score by 5 points or greater to improve function. Goal Progress: Goal Met - Plan Plan: D/C TO HEP AAND GYM AT - D/C Information Discharge Comments: HEP AND GYM If there are questions or concerns regarding this patient's physical therapy, please feel free to call me at [phone]. Thank you for the referral of this patient. Sincerely, Samy Johnson, PT, Cert MDT, OCS
== END 2018-11-10 19:00 | disposition home or self-care (01) ==
LOC: PT 11:30
PROVIDERS: Family Provider Internal Medicine; PCP Internal Medicine; Referring Provider Internal Medicine; Visit Provider Internal Medicine
DX: M19.90 Unspecified osteoarthritis, unspecified site (principal)
CPT/HCPCS: 97113; 97162; 97530

== ENCOUNTER → 2018-11-29 | Outpatient (CLI) | payer MEDICARE, SELFPAY ==
--- NOTE | 2018-11-29 12:40 | CT_ITS ---
STUDY: CT FACIAL BONES WITH CONTRAST REASON FOR EXAM: Female, 73 years old. Swelling of the right ear. RADIATION DOSAGE (If Supplied By Facility): CTDIvol = ( 29.38 ) mGy, DLP = ( 510.73 ) mGycm TECHNIQUE: The patient was scanned in a multi detector CT scanner. Transaxial imaging was performed following the intravenous administration of 100 IV Isovue 300. Sagittal and coronal images were reconstructed. Individualized dose optimization techniques were used for this CT. COMPARISON: None. FINDINGS: There is a 4.5 mm benign-appearing lymph node in the lateral aspect of the right parotid gland. Normal orbital hendrickson and orbital contents. Normal nasal bones and anterior nasal spine. Normal facial bones. There is no demonstrated fracture. Normal visualized paranasal sinuses. CT/Sinus/Facial Bone WITH Contras IMPRESSION: No acute abnormality is seen. Electronically Signed: Suleman Chan, at 13:37 EDT , Service support ,
[2018-11-29 13:06] LABS: CREATININE FINGERSTICK 0.8 mg/dL (0.55-1.02); EGFR FINGERSTICK > 60.0000 mL/min (>60)
== END | disposition home or self-care (01) ==
PROVIDERS: Family Provider Internal Medicine; PCP Internal Medicine; Referring Provider Internal Medicine; Visit Provider Internal Medicine
DX: R22.0 Localized swelling, mass and lump, head (principal)
CPT/HCPCS: 70487; Q9967

== ENCOUNTER → 2018-12-13 09:53 | Outpatient (CLI) | payer MEDICARE, SELFPAY ==
[2018-03-03 10:10] VITALS: BMI 29.9
--- NOTE | 2018-12-13 09:58 | BI_ITS ---
MAMMOGRAPHY - BILATERAL SCREENING REASON FOR EXAM: Female, 73 years old. Routine annual screening examination. PERTINENT HISTORY: Aunt with breast cancer. Remote right axillary biopsy. TECHNIQUE: Digital bilateral breast javier (3D mammographic acquisition) in the CC and MLO projections. 2-D mediolateral oblique (MLO) and craniocaudad (CC) views of both breasts were obtained. CAD: Full Field Digital Mammography with Computer Added Detection was performed. COMPARISON: Comparison is made with prior study dated January 05, 2017 and December 10, 2017. FINDINGS: Breast Composition: The breasts are almost entirely fatty. There are no dominant masses or suspicious calcifications. Stable appearance of the secretory calcifications bilaterally. No other significant abnormalities are identified. There has been no significant change since the prior study. BI/SCREEN MAMM (CAD) W/JAVIER BILAT IMPRESSION: Stable bilateral screening mammogram. Yearly follow-up mammogram recommended. (A) ASSESSMENT CATEGORY: BIRADS Category 2: Benign. A letter regarding these results will be sent to the patient by the facility within 30 days. Approximately 10% of breast cancers are not detected by mammography. A normal mammogram should not delay biopsy of a clinically suspicious abnormality. [id number] Electronically Signed: Suleman Chan, at 11:27 EDT , Service support ,
== END ==
PROVIDERS: Family Provider Internal Medicine; PCP Internal Medicine; Referring Provider Internal Medicine; Visit Provider Internal Medicine
DX: Z12.31 Encounter for screening mammogram for malignant neoplasm of breast (principal)
CPT/HCPCS: 77063; 77067

== ENCOUNTER → 2019-01-04 11:28 | Outpatient (CLI) | payer MEDICARE, SELFPAY ==
--- NOTE | 2019-01-04 11:32 | US_ITS ---
STUDY: RENAL ULTRASOUND - COMPLETE REASON FOR EXAM: Female, 73 years old. Urinary Retention TECHNIQUE: Ultrasound evaluation of the kidneys was performed with real-time and static valladares-scale imaging. COMPARISON: None. FINDINGS: RIGHT KIDNEY: Normal location of the right kidney, which is normal in size. The right kidney measures 11.1 cm. There is a normal cortex of the right kidney. The renal cortex measures 1.3 cm. There is no right renal mass or cyst. There are no right renal calculi. There is no right hydronephrosis. DISTAL RIGHT URETER: There is non-visualization of the distal right ureter. There is no demonstrated right ureterovesical junction calculus. There is no demonstrated right ureteral jet. LEFT KIDNEY: Normal location of the left kidney, which is normal in size. The left kidney measures 10.5 cm. There is a normal cortex of the left kidney. The renal cortex measures 1.4 cm. There are left renal simple cysts measuring 1.6 x 1.6 cm and 1 x 0.6 cm. There are no left renal calculi. There is no left hydronephrosis. DISTAL LEFT URETER: There is non-visualization of the distal left ureter. There is no demonstrated left ureterovesical junction calculus. There is no demonstrated left ureteral jet. BLADDER: The distended urinary bladder has a volume of 472 ml. The empty urinary bladder has a volume of 0 ml. There is a normal wall thickness of the distended urinary bladder. There is no demonstrated mass within the urinary bladder. There are no demonstrated bladder calculi. US/Kidney and Bladder IMPRESSION: No hydronephrosis or renal stones. Simple left renal cysts. No post void residual in the urinary bladder. Electronically Signed: Blanca Montes, at 14:33 EDT Tel , Service support ,
== END ==
PROVIDERS: Family Provider Internal Medicine; PCP Internal Medicine; Referring Provider Nurse Practitioner; Visit Provider Nurse Practitioner
DX: R33.9 Retention of urine, unspecified (principal)
CPT/HCPCS: 76770

== ENCOUNTER 2019-03-15 09:40 | Outpatient (RCR) | payer MEDICARE, SELFPAY | END 2019-03-15 23:59 | disposition home or self-care (01) | LOC: DC 09:40 | PROVIDERS: Family Provider Internal Medicine; PCP Internal Medicine; Visit Provider Internal Medicine | DX: Z71.3 Dietary counseling and surveillance (principal); E66.9 Obesity, unspecified; E11.9 Type 2 diabetes mellitus without complications; Z68.30 Body mass index [BMI] 30.0-30.9, adult | CPT/HCPCS: G0108 ==

== ENCOUNTER 2019-03-17 09:00 | Outpatient (RCR) | payer MEDICARE, SELFPAY ==
--- NOTE | 2019-01-11 11:15 | HP.PTEVAL_ITS ---
Patient's Visit Information JOSELUIS HUI is a 74 year old F referred to Physical Therapy by Octavia Quiroz DO with a diagnosis of SCIATICA. Date of Evaluation: 01/11/19 Physical Therapist: Denisa Ignram PT, Cert MDT - Visit Plan Frequency: 2-3x /Week Duration: 4-6 Weeks Plan: IF PATIENTS VOICE GOES HIGH AND SHE STARTS TO TALK REALLY FAST TELL HER TO TAKE DEEP BREATHS PER PATIENT REQUEST - THIS HAPPENS SECONDARY TO MOOD DISORDER. AQUATIC THERAPY FOR PAIN RELIEF, POSTURE CORRECTION/STRENGTHENING, INSTRUCTION IN APPROPRIATE BODY MECHANICS AND ACTIVITY MODIFICATIONS. DLS STARTING WITH A NEUTRAL SPINE PROGRESSING ROM TOLERATED. TETE LE ROM, STRETCHING AND STRENGTHENING. HEP INSTRUCTION. - Subjective Findings: Work/Leisure: RETIRED. SEWS ABOUT 1-2 HOURS A DAY. Disability: NO. Present symptoms: INTERMITTENT LOW BACK PAIN. LBP WAS CONSTANT LAST WEEK. RIGHT GROIN PAIN, RIGHT THIGH PAIN, RIGHT KNEE PAIN (A FEW DAYS AGO). LEFT GROIN AND THIGH PAIN STARTED THIS MORNING. PATIENT DENIES TETE LE NUMBNESS OR TINGLING. Present since: DEC 31 2018. Pain Scale: WORST 8/10, LEAST 2/10. Currently: 2/10 - LEFT GROIN AND OUTSIDE OF THIGH. Commenced as a result of: LIFTING AND CARRYING PORTABLE SEWING MACHINE TO THE KITCHEN IS THE ONLY THING PATIENT CAN RELATED THE ONSET OF PAIN TO. Symptoms at onset: RIGHT GROIN THEN PROGRESSED DOWN LEG TO KNEE. Worse: PROLONGED SITTING, WALING THROUGH A GROCERY STORE, BENDING OVER, GETTING IN AND OUT OF THE CAR, STEPS. Better: ANTI-INFLAMMATORY THAT DR. QUIROZ GAVE HER 4 DAYS AGO ALONG WITH IBUPROFEN. RICE BAG HEAT, SITTING IN RECLINER WITH LEGS UP. Disturbed sleep: NOT THE LAST COUPLE OF NIGHTS. Previous history/Previous treatment: TETE THR'S 2002 AND 2005. NO BACK SURGERY. NO BACK INJECTIONS. ABOUT 30 YEARS AGO PULLED LOW BACK AND WENT ON DISABILITY AND SAW A CHIROPRACTOR. 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 SINCE THEN EPISODIC LBP MAINLY SELF MANAGED. Coughing/sneezing/straining: NEGATIVE. Gait: PATIENT REPORTS RIGHT HIP AND GROIN PAIN WITH WALKING. STATES WALKING HAS BEEN LIMITED SINCE ABOUT DEC 31. HAS TO USE A SCOOTER IN THE GROCERY STORE BECAUSE PAIN GETS SO BAD. Difficulty initiating urinatin: YES - LAST WEEK AND HAD TO CATH HER. ULTRASOUND TEST CAME OUT OK AND MEDICINE PRESCRIBED. BETTER NOW. Accidents: FELL BACKWARD AT HOME AND SUSTAINED WHIPLASH ABOUT MAY/JUN 2018 AND HAD PHYSICAL THERAPY HERE IN [facility] IN OCTOB[place]. STATES THE PHYSICAL THERAPY HELPED AND SHE IS STILL COMING TO DO WATER EX ON HER OWN NOW. ALSO HAD A FALL IN OCTOBER ON HER LEFT HIP AT THE START OF THERAPY. STATES MOST OF HER PAIN RESOLVED WITH LAST EPISODE OF CARE IN PT. NO FALLS SINCE OCTOBER 2018. Unexplained weight loss: NO - RECENT 5 LB WEIGHT LOSS THAT PATIENT RELATES TO HER PAIN. Imaging: ONLY ULTRASOUND OF KIDNEY AND BLADDER AND IT WAS NORMAL PER PATIENT REPORT. PMH: THYROIDECTOMY, 5 HERNIA SURGERIES, KIDNEY STONES. MOOD DISORDER - BIPOLAR DISORDER. Recent major surgery: TETE THR'S. OTHER: STATES SHE HAS BEEN ABLE TO CONTINUE WATER EX'S AND WAS IN THE POOL WEDNESDAY. STATES IT FEELS GOOD IN THE POOL. PATIENT REPORTS HER GOAL IS TO GET HER BACK STRONGER AND SHE FEELS LIKE HER POOL EX'S ARE HELPING HER BACK GET STRNGER AND HELPING HER BALANCE. WOULD LIKE TO HAVE SOME MORE PT NOW SINCE HAVING THIS RECENT EPISODE OF PAIN SO SHE CAN RECOVER AND HOPEFULLY PROGRESS HER CURRENT EX'S. - Objective Sitting/Standing Posture: POOR. Lordosis: REDUCED. Active Correction of posture: BETTER. Other Observations: INDEP GAIT INTO PT WITH A MILD LIMP ON THE LEFT LE AND HAVING DIFFICULTY ADVANCING LEFT LE COMPARED TO THE RIGHT. RIGHT KNEE GENU VALGUS. INCREASED KYPHOSIS. INDEP SIT TO STAND WITHOUT UE ASSIST BUT THIS IS DIFFICULT FOR PATIENT. Motor deficit: I PROCEEDED CAREFULLY WITH TETE LE MMT'ING AND PATIENT TOLERATED WELL. TETE LE WEAKNESS IS SYMMETRICAL TODAY BUT TESTING ONLY PROVOKES INCREASED LEFT HIP PAIN TODAY. HIPS 4-/5, KNEES 4/5, ANKLES 5/5. Sensory deficit: NO. ROM deficit: TIGHT TETE HS'S. Reflexes: NT. Dural Signs: POSITIVE TETE LE'S. Lumbar mvmt loss: flex - MIN - NO INCRASED PAIN. ext - ELSA - NO INCREASED PAIN. R SG - MOD - NO INCREASED PAIN. L SG - ELSA - PROVOKES INCREASED TETE HIP PAIN. Core strength: POOR. Palpation: ACUTE TENDERNESS WITH PALPATION OF THE UPPER LUMBAR REGION. - Goals Goal 1:: DECREASE C/O LOW BACK AND TETE LE PAIN Goal Time Frame: 4-6 Weeks Goal 2:: IMPROVE PERSONAL CARE, LIFTING, WALKING, SITTING, STANDING, TRAVEL AND HOMEMAKING FUNCTION Goal Time Frame: 4-6 Weeks Goal 3:: INSTRUCT IN PROPHYLAXIS Goal Time Frame: 4-6 Weeks - Rehabilitation Potential Rehabilitation Potential: Fair - Anticipated Interventions Patient/Client Instruction: Educate patient on: Condition, Plan of Care, Risk Factors, Benefits of Fitness Program For the Purpose of:: To improve self management Therapeutic Exercise to Include: Strength training, Body mechanics, Postural training, Flexibilty training, Gait and locomotor training, In an aquatic setting, Active ROM, Dynamic Lumbar Stabilization For the Purpose of:: To decrease pain, To increase ROM, To improve muscle performance and motor function, To increase tolerance to activity/condition/position, To improve ability of physical actions for home/co mmunity/work/leisure, To improve gait and locomotor functions Thank you for the opportunity to evaluate your patient. For Medicare and Medicare HMO plans, please review the plan of care and approve it. It will need to be FAXED BACK to us at [phone] for Medicare purposes. For Medicare only, by signing this I certify the plan of care. Please let me know if there are questions or concerns regarding this plan of care. Physician Signature: Date:
--- NOTE | 2019-02-14 09:33 | HP.PTREVAL ---
Octavia Nichols, DO, It has been my pleasure to treat JOSELUIS HUI over the last 7 visits for SCIATICA. Please see the progress note below for an update on the physical therapy plan of care! Subjective: PATIENT REPORTS SHE REALLY LIKES THE [facility] THERAPY AND WAS ABLE TO LEARN TO CONTROL HER POSTURE BETTER IN THE [facility]ATER. NOW SHE FEELS SHE IS CONTROLLING IT BETTER ON [place] AND IT HAS HELPED HER PAIN. PATIENT REPORTS SHE PLANS TO GET ACCESS TO A POOL BUT FEELS SHE COULD BENEFIT FROM SOME MORE INSTRUCTION FROM US TOO. HURT HER NECK AGAIN ON WEDNESDAY MOVING SOME BOXES. Objective/Function: PATIENT IS MAKING GOOD PROGRESS TOWARD ALL PT GOALS AND IS A GOOD CANDIDATE TO CONTINUE PT. INDEP GAIT INTO PT TODAY WITH NO GROSS NO AD'S AND NO LOB. RIGHT KNEE GENU VALGUS. INCREASED KYPHOSIS. INDEP SIT TO STAND WITHOUT UE ASSIST OR DIFFICULTY TODAY. Motor deficit: HIPS 4-/5, KNEES 4/5, ANKLES 5/5. Sensory deficit: NO. ROM deficit: TIGHT TETE HS'S. Reflexes: NT. Dural Signs: POSITIVE TETE LE'S. Lumbar mvmt loss: flex - NIL - NO INCRASED PAIN. ext - MOD - NO INCREASED PAIN. R SG - MOD - NO INCREASED PAIN. L SG - MOD - NO INCREASED PAIN WITH MVMT BUT AFTER TESTING PATIENT REPORTED HAVING A LITTLE BIT OF LEFT LBP. Core strength: POOR. Palpation: NO ACUTE TENDERNESS WITH PALPATION OF THE LUMBAR REGION. Plan Plan: CONTINUE AQUATIC THERAPY 1X/WEEK X 4-5 WEEKS FOLLOWING SAME POC TO HELP PATIENT COMPLETELY TRANSISTION TO INDEP POOL PROGRAM. PATIENT IS AGREEABLE. Goals Goal 1:: DECREASE C/O LOW BACK AND TETE LE PAIN Goal Time Frame: 4-6 Weeks Goal Progress: Progressing Goal 2:: IMPROVE PERSONAL CARE, LIFTING, WALKING, SITTING, STANDING, TRAVEL AND HOMEMAKING FUNCTION Goal Time Frame: 4-6 Weeks Goal Progress: Progressing Goal 3:: INSTRUCT IN PROPHYLAXIS Goal Time Frame: 4-6 Weeks Goal Progress: Progressing Anticipated Interventions Patient/Client Instruction: Educate patient on: Condition, Plan of Care, Risk Factors, Benefits of Fitness Program For the Purpose of:: To improve self management Therapeutic Exercise to Include: Strength training, Body mechanics, Postural training, Flexibilty training, Gait and locomotor training, In an aquatic setting, Active ROM, Dynamic Lumbar Stabilization For the Purpose of:: To decrease pain, To increase ROM, To improve muscle performance and motor function, To increase tolerance to activity/condition/position, To improve ability of physical actions for home/community/work/leisure, To improve gait and locomotor functions Please do not hesitate to contact me at [phone] by phone or if you have questions or concerns regarding this new plan of care! Sincerely, Denisa Ingram, PT, Cert MDT
--- NOTE | 2019-03-17 09:26 | HP.PTDCSUM ---
HP - PT D/C Summary It has been my pleasure to treat JOSELUIS HUI under orders from Octavia Nichols DO, for the diagnosis of SCIATICA for a total of 12 visit(s). Discharge Date: 03/17/19 Please see the following information for a summary of their discharge status. - Subjective Subjective: PATIENT REPORTS THIS STRENGTHENING IS HELPING ME. PATIENT REPORTS SHE PLANS TO CONTINUE THE EX'S SHE HAS LEARNED ON HER OWN NOW THROUGHT HER [employer]IP. STATES THE CORTISONE IN HER KNEE REALLY HELPED TOO. SHE STATES SHE FEELS REALLY GOOD THAT SHE HAS PROGRESSED WITH THE EX'S TO NOT EVEN NEEDING TO HOLD ON WITH THE STEP UPS. - Pain Lumbar Spine Pain Intensity (Out of 10): 0 L knee Pain Intensity (Out of 10): 0 - Overall Improvement % Improvement: 98 - Objective Objective/Function: ALL GOALS MET. PATIENT DEMO'S. INDEP GAIT INTO PT TODAY WITH NO GROSS NO AD'S AND NO LOB. RIGHT KNEE GENU VALGUS. INCREASED KYPHOSIS. INDEP SIT TO STAND WITHOUT UE ASSIST OR DIFFICULTY TODAY. Motor deficit: HIPS 4/5, KNEES 4/5, ANKLES 5/5. Sensory deficit: NO. Dural Signs: NEGATIVE TETE LE'S. Lumbar mvmt loss: flex - NIL - NE. ext - MOD - NE. R SG - MOD - NE. L SG - MOD - NE - Goals Goal 1:: DECREASE C/O LOW BACK AND TETE LE PAIN Goal Progress: Progressing Goal 2:: IMPROVE PERSONAL CARE, LIFTING, WALKING, SITTING, STANDING, TRAVEL AND HOMEMAKING FUNCTION Goal Progress: Progressing Goal 3:: INSTRUCT IN PROPHYLAXIS Goal Progress: Progressing - Plan Plan: D/C TO INDEP POOL PROGRAM. PATIENT AGREEABLE. - D/C Information If there are questions or concerns regarding this patient's physical therapy, please feel free to call me at [phone]. Thank you for the referral of this patient. Sincerely, Denisa Ingram, PT, Cert MDT
== END 2019-03-17 19:00 | disposition home or self-care (01) ==
LOC: PT 09:00
PROVIDERS: Family Provider Internal Medicine; PCP Internal Medicine; Referring Provider Internal Medicine; Visit Provider Internal Medicine
DX: M54.31 Sciatica, right side (principal)
CPT/HCPCS: 97113; 97162; 97530

== ENCOUNTER 2019-07-24 13:43 | Outpatient (RCR) | payer MEDICARE, MEDICAID, SELFPAY ==
--- NOTE | 2019-07-24 14:54 | HP.SP.AD ---
History - History Date of Eval: 07/24/19 Medical Diagnosis (from RX): Aphasia Date of Onset of Diagnosis: 07/15/18 Previous speech therapy: No Other Relevant Medical History/Diagnoses/Surgery: Two hip replacements, 4 hernia surgeries, thyriod removed and part of parathyriod moved, kidney stones. 3 psychatric admissions. Bipolar disoder, anxiety and panic attacks. Patient reported very ahrd wax in ears resulting in hearing deficits until removed. She reported that tardive dyskinesia is from her psychaitric medications. Medications related to this diagnosis: Patient did not bring her list. Smoking Status: Never smoker Hx Smoking: No Hx Tobacco Use: No - Pain Is pain an issue with your current prescribed condition?: No - Personal Occupation: Retired Right Hearing Abillity: Normal Left Hearing Abillity: Normal Visual Assistive Devices: None Patients Living Arrangements: Alone Patient Allergies - Allergies Allergies codeine Adverse Reaction (Mild, Verified 03/01/18 14:53) Upset Stomach hydroxyzine HCl [From Vistaril] Adverse Reaction (Mild, Verified 03/01/18 14:53) Rash hydroxyzine pamoate [From Vistaril] Adverse Reaction (Mild, Verified 03/01/18 14:53) Rash Objective Cog/Ling/Com - Test Administered Dexirbwou-Hvqkmbhair-Pugvgeqiujfvr Assessment Administered: Yes Xoxdhyenu-Gotxcpvrrk-Htvbrghbimqbp Assessment: Cognitive ? Linguistic skills were evaluated using patient/family interview, skilled observation and informal evaluation through tasks completed by the patient. - Orientation Orientation: Person, Birthdate, Medical Diagnosis - Answer Yes/No Questions Complex: WNL - Conversational Tasks Conversational Tasks: WNL - Judgement & Reasoning Judgement/Reasoning: WFL Other Impressions - Comments Word finding deficits -: Patient had no word finding deficits during today's evaluation and she stated that she felt very comfortable. She reported that she only has difficulty when she feels threatened. Patient and therapist discussed an action plan on how to handle time pressures as well as a plan for cueing others on how she feels about pressure. A written plan was provided with steps on what she would like to address with her daughters. Plan - Plan Plan: No speech therapy is warranted at this time. The patient was given an action plan on addressing communication with her daughters. She has a counselor and it was recommended that she also discuss this difficulty with her. It is felt that her word finding is more related to emotional aspect rather than a speech therapy need. The patient is in agreement with this plan. Education - Patient has Indicated that the Following Identified Educational Needs: Psychological Factors - Patient Instruction Patient Education: Diagnosis, Home Exercise Program Person Taught: Patient Teaching Method: Discussion Response to teaching: Verbalize understanding
== END 2019-07-24 15:12 | disposition home or self-care (01) ==
LOC: SP 13:43
PROVIDERS: PCP Internal Medicine; Referring Provider Internal Medicine; Visit Provider Internal Medicine
DX: R47.89 Other speech disturbances (principal)
CPT/HCPCS: 92523

== ENCOUNTER → 2019-09-20 13:03 | Outpatient (CLI) | payer MEDICARE, MEDICAID, SELFPAY ==
--- NOTE | 2019-09-20 13:09 | MRI_ITS ---
STUDY: MRI LUMBAR SPINE WITHOUT CONTRAST REASON FOR EXAM: Female, 74 years old. right sided low back pain, left leg radiculopathy, prev mri 2006 TECHNIQUE: Standardized fat and water weighted pulse sequences were obtained in the sagittal and axial planes. COMPARISON: 09/24/2006 FINDINGS: T12-L1: Interval development of a mild bilobed disc protrusion produces mild spinal stenosis and mild bilateral neural foraminal stenosis. Normal lumbar lordosis. Moderate dextroscoliosis centered at L2. Normal conus medullaris that terminates at the L1. L1-2: No change in a mild bilobed disc protrusion produces mild spinal stenosis and mild bilateral neural foraminal stenosis. L2-3: No change in a mild bilobed disc protrusion which produces mild spinal stenosis and mild bilateral neural foraminal stenosis.. L3-4: Mild bilateral facet hypertrophy and ligament flavum hypertrophy. Worsening of a broad disc protrusion which is moderate which produces moderate spinal stenosis with mild bilateral lateral recess stenosis and moderate bilateral neural foraminal stenosis with abutment of the exiting L3 nerve roots bilaterally. L4-5: Moderate right facet hypertrophy and mild left facet hypertrophy. No change in the mild broad disc protrusion which produces mild spinal stenosis with mild bilateral lateral recess stenosis and mild bilateral neural foraminal stenosis. L5-S1: Moderate bilateral facet hypertrophy. No change in the mild broad disc protrusion which produces mild spinal stenosis and mild bilateral neural foraminal stenosis. Normal visualized sacral ala. Normal visualized paraspinous soft tissue structures. MRI/Spine Lumbar (Routine) IMPRESSION: Moderate dextroscoliosis with slight worsening of degenerative disc disease as described above. Electronically Signed: Sd Cade MD at 16:17 EDT Tel , Service support ,
== END ==
PROVIDERS: PCP Internal Medicine; Referring Provider Internal Medicine; Visit Provider Internal Medicine
DX: M54.5 Low back pain (principal)
CPT/HCPCS: 72148

== ENCOUNTER → 2019-12-26 08:35 | Outpatient (CLI) | payer MEDICARE, SELFPAY ==
[2018-03-03 10:10] VITALS: BMI 29.9
--- NOTE | 2019-12-26 08:40 | BI_ITS ---
MAMMOGRAPHY - BILATERAL SCREENING REASON FOR EXAM: Female, 74 years old. Routine annual screening examination. PERTINENT HISTORY: Aunt with breast cancer. Remote right excisional breast biopsy. TECHNIQUE: Digital bilateral breast javier (3D mammographic acquisition) in the CC and MLO projections. 2-D mediolateral oblique (MLO) and craniocaudad (CC) views of both breasts were obtained. CAD: Full Field Digital Mammography with Computer Added Detection was performed. COMPARISON: Comparison is made with prior study dated 12/13/2018 and 12/10/2017. FINDINGS: Breast Composition: The breasts are almost entirely fatty. There are no dominant masses or suspicious calcifications. Stable bilateral secretory calcifications. No other significant abnormalities are identified. There has been no significant change since the prior study. BI/SCREEN MAMM (CAD) W/JAVIER BILAT IMPRESSION: Stable bilateral screening mammogram. Yearly follow-up mammogram recommended. (A) ASSESSMENT CATEGORY: BIRADS Category 2: Benign. A letter regarding these results will be sent to the patient by the facility within 30 days. Approximately 10% of breast cancers are not detected by mammography. A normal mammogram should not delay biopsy of a clinically suspicious abnormality. [id number] Electronically Signed: Suleman Chan, at 10:04 EDT , Service support ,
== END ==
PROVIDERS: PCP Internal Medicine; Referring Provider Internal Medicine; Visit Provider Internal Medicine
DX: Z12.31 Encounter for screening mammogram for malignant neoplasm of breast (principal); Z80.3 Family history of malignant neoplasm of breast
CPT/HCPCS: 77063; 77067

== ENCOUNTER 2020-01-30 15:30 | Outpatient (RCR) | payer MEDICARE, MEDICAID, SELFPAY ==
--- NOTE | 2019-10-27 10:32 | HP.PTEVAL ---
Patient's Visit Information JOSELUIS HUI is a 74 year old F referred to Physical Therapy by Dr. Octavia Nichols DO with a diagnosis of LBP, LUMBAR DDD, BULGING DISCS AND FACET STENOSIS.. Date of Evaluation: 10/27/19 Physical Therapist: Denisa Ingram, PT, Cert MDT - Visit Plan Frequency: 2-3x /Week Duration: 4-6 Weeks Plan: IF PATIENTS VOICE GOES HIGH AND SHE STARTS TO TALK REALLY FAST TELL HER TO TAKE DEEP BREATHS PER PATIENT REQUEST - THIS HAPPENS SECONDARY TO MOOD DISORDER. AQUATIC THERAPY FOR PAIN RELIEF, POSTURE CORRECTION/STRENGTHENING, INSTRUCTION IN APPROPRIATE BODY MECHANICS AND ACTIVITY MODIFICATIONS. DLS STARTING WITH A NEUTRAL SPINE PROGRESSING ROM TOLERATED. TETE LE ROM, STRETCHING AND STRENGTHENING. HEP INSTRUCTION. - Subjective Work/Leisure: RETIRED. SEWS ABOUT 1-2 HOURS A DAY. Disability: NO. Present symptoms: INTERMITTENT LOW BACK PAIN. USE TO BE CONSTANT LAST WEEK. LEFT GROIN PAIN, INTERMITTENT RIGHT KNEE PAIN. USE TO HAVE RIGHT GROIN PAIN BUT GONE NOW. PATIENT DENIES TETE LE NUMBNESS OR TINGLING. Present since: DEC 31 2018. Pain Scale: WORST 7/10, LEAST 1/10. Currently: 05/26 - LBP. Commenced as a result of: LIFTING AND CARRYING PORTABLE SEWING MACHINE TO THE KITCHEN IS THE ONLY THING PATIENT CAN RELATED THE ONSET OF PAIN TO. Symptoms at onset: RIGHT GROIN THEN PROGRESSED DOWN LEG TO KNEE. Worse: PROLONGED SITTING, WALING THROUGH A GROCERY STORE, BENDING OVER, GETTING IN AND OUT OF THE CAR, STEPS. Better: IBUPROFEN. RICE BAG HEAT, SITTING IN RECLINER WITH LEGS UP. Disturbed sleep: SOMETIMES BUT NOT GENERALLY. Previous history/Previous treatment: TETE THR'S 2002 AND 2005. NO BACK SURGERY. NO BACK INJECTIONS. ABOUT 30 YEARS AGO PULLED LOW BACK AND WENT ON DISABILITY AND SAW A CHIROPRACTOR. 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 THIS EPISODE HAS BEEN REFERRED TO DR. VYAS BUT HAS NOT HAD CONSULT YET. Coughing/sneezing/straining: NEGATIVE. Gait: PATIENT REPORTS LEFT HIP AND GROIN PAIN WITH WALKING. Difficulty initiating urinatin: NO. Accidents: FELL BACKWARD AT HOME AND SUSTAINED WHIPLASH ABOUT MAY/JUN 2018 AND HAD PHYSICAL THERAPY [place] IN [place]. 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 ALSO HAD A FALL IN OCTOBER ON HER LEFT HIP AT THE START OF THERAPY. MOST RECENT FALL WAS AT HOME IN JULY AND RECOVERED GOOD. Unexplained weight loss: NO Imaging: RECENT MRI - SEE BELOW. PMH: THYROIDECTOMY, 5 HERNIA SURGERIES, KIDNEY STONES. MOOD DISORDER - BIPOLAR DISORDER. Recent major surgery: TETE THR'S. OTHER: STATES IT FEELS GOOD IN THE POOL. WOULD LIKE TO HAVE SOME MORE PT NOW SINCE HAVING ANOTHER FALL AND WANTING TO ROGRESS HER CURRENT EX'S. RECENT LUMBAR MRI FINDINGS SEPTEMBER 2019: T12-L1: Interval development of a mild bilobed disc protrusion produces. mild spinal stenosis and mild bilateral neural foraminal stenosis. Normal lumbar lordosis. Moderate dextroscoliosis centered at L2. Normal. conus medullaris that terminates at the L1. L1-2: No change in a mild bilobed disc protrusion produces mild spinal. stenosis and mild bilateral neural foraminal stenosis. L2-3: No change in a mild bilobed disc protrusion which produces mild. spinal stenosis and mild bilateral neural foraminal stenosis.. L3-4: Mild bilateral facet hypertrophy and ligament flavum hypertrophy. Worsening of a broad disc protrusion which is moderate which produces. moderate spinal stenosis with mild bilateral lateral recess stenosis and. moderate bilateral neural foraminal stenosis with abutment of the exiting. L3 nerve roots bilaterally. L4-5: Moderate right facet hypertrophy and mild left facet hypertrophy. No change in the mild broad disc protrusion which produces mild spinal. stenosis with mild bilateral lateral recess stenosis and mild bilateral. neural foraminal stenosis. L5-S1: Moderate bilateral facet hypertrophy. No change in the mild broad. disc protrusion which produces mild spinal stenosis and mild bilateral. neural foraminal stenosis. Normal visualized sacral ala. Normal visualized paraspinous soft tissue structures. . MRI/Spine Lumbar (Routine). IMPRESSION: Moderate dextroscoliosis with slight worsening of degenerative disc disease. as described above. - Objective Sitting/Standing Posture: POOR. Lordosis: REDUCED. Active Correction of posture: BETTER. Other Observations: INDEP GAIT INTO PT WITH A MILD LIMP ON THE LEFT LE AND HAVING DIFFICULTY ADVANCING LEFT LE COMPARED TO THE RIGHT. RIGHT KNEE GENU VALGUS. INCREASED KYPHOSIS. INDEP SIT TO STAND WITHOUT UE ASSIST BUT THIS IS DIFFICULT FOR PATIENT. Motor deficit: I PROCEEDED CAREFULLY WITH TETE LE MMT'ING - HIPS 4-/5, KNEES 4/5, ANKLES 5/5. PATIENT TOLERATED MMT'ING WELL BUT LEFT HIP FELX AND KNEE EXT TESTING PROVOKED MILD LEFT GROIN PAIN. Sensory deficit: NO. ROM deficit: TIGHT TETE HS'S. Reflexes: NT. Dural Signs: POSITIVE TETE LE'S. Lumbar mvmt loss: flex - MIN - PRODUCES INCREASED LBP. ext - ELSA - NO INCREASED PAIN. R SG - MOD - NO INCREASED PAIN. L SG - ELSA - NO INCREASED PAIN Core strength: POOR. Palpation: NO ACUTE THORACIC OR LUMBAR SPINAL TENDERNESS TODAY. - Goals Goal 1:: DECREASE C/O BACK AND TETE LE SX'S. Goal Time Frame: 4-6 Weeks Goal 2:: IMPROVE PERSONAL CARE, LIFTING, WALING, SITTING, STANDING, SOCIAL LIFE AND TREAVEL FUNCTION. Goal Time Frame: 4-6 Weeks Goal 3:: INSTRUCT IN PROPHYLAXIS Goal Time Frame: 4-6 Weeks - Anticipated Interventions Patient/Client Instruction: Educate patient on: Condition, Plan of Care, Risk Factors, Benefits of Fitness Program For the Purpose of:: To improve self management Therapeutic Exercise to Include: Strength training, Body mechanics, Postural training, Flexibilty training, Neuromotor development, In an aquatic setting, Dynamic Lumbar Stabilization For the Purpose of:: To decrease pain, To increase ROM, To improve muscle performance and motor function, To increase tolerance to activity/condition/position, To improve ability of physical actions for home/community/work/leisure Thank you for the opportunity to evaluate your patient. For Medicare and Medicare HMO plans, please review the plan of care and approve it. It will need to be FAXED BACK to us at [phone] for Medicare purposes. For Medicare only, by signing this I certify the plan of care. Please let me know if there are questions or concerns regarding this plan of care. Physician Signature: Date:
--- NOTE | 2019-12-14 13:36 | HP.PTREVAL ---
Dr. Octavia Quiroz, DO, It has been my pleasure to treat JOSELUIS HUI over the last 7 visits for LBP, LUMBAR DDD, BULGING DISCS AND FACET STENOSIS.. Please see the progress note below for an update on the physical therapy plan of care! Subjective: PATIENT REPORTS SHE FEELS BETTER ON THE DAYS SHE DOES WATER PT AND SHE IS GETTING BETTER. STATES THE HOME EX'S ARE HELPFUL TOO. PATIENT PLANS TO MAKE A FOLLOW UP FARHAT'T WITH DR. QUIROZ TODAY. STATES SHE THINKS DR. QUIROZ IS AWARE OF HER FALL THROUGH URGENT CARE BUT WANTS TO MAKE SURE. Objective/Function: PATIENT WAS SEEN TODAY FOR RE-ASSESSMENT OF PROGRESS TOWARD THE SET PT GOALS AND THE NEED FOR FURTHER PHYSICAL THERAPY VS READINESS FOR DISCHARGE. PATIENT IS IMPROVEING WITH PT IN TERMS OF BACK AND LEG PAIN OVER-ALL EXCEPT FOR NEW RIGHT LEG PAIN SINCE FALL ON . HER LLE STRENGTH AND FUNCTION HAS ALSO IMPROVED. UPON EXAM TODAY: INDEP GAIT INTO PT WITH A MILD LIMP ON THE RIGHT LE AND USING CANE IN LUE TO HELP RIGHT LE. PATIENT WALKS BETTER WITH CANE VS NO CANE. RIGHT KNEE GENU VALGUS. INCREASED KYPHOSIS. INDEP SIT TO STAND WITHOUT UE ASSIST AND THIS HAS IMPROVED SINCE INITIAL EVAL. Motor deficit: I PROCEEDED CAREFULLY WITH TETE LE MMT'ING - HIPS RIGHT 4-/5, LEFT HIP 4/5. KNEES RIGHT 4/5, LEFT 5/5.ANKLES 5/5. PATIENT TOLERATED MMT'ING WELL BUT LEFT HIP FELX AND KNEE EXT TESTING PROVOKED MILD RIGHT KNEE PAIN. Sensory deficit: NO. ROM deficit: TIGHT TETE HS'S. Reflexes: NT. Dural Signs: NEGATIVE TETE LE'S. Lumbar mvmt loss: flex - MIN -. ext - ELSA, R SG - MOD - . L SG - ELSA. PATIENT DENIES INCREASED PAIN WITH LUMBAR ROM TESTING ALL PLANES TODAY. Core strength: POOR. Palpation: NO ACUTE THORACIC OR LUMBAR SPINAL TENDERNESS TODAY. THE RIGHT KNEE AREA ALSO IS NOT TENDER TODAY BUT C/O PAIN WHEN WALKING ON IT. Plan Plan: RECOMMEND CONTINUED AQUATIC THERAPY BASED ON IMPROVEMENT MADE AND ROOM FOR FURTHER IMPROVEMENT. Goals Goal 1:: DECREASE C/O BACK AND TETE LE SX'S. Goal Time Frame: 4-6 Weeks Goal Progress: Progressing Goal 2:: IMPROVE PERSONAL CARE, LIFTING, WALING, SITTING, STANDING, SOCIAL LIFE AND TREAVEL FUNCTION. Goal Time Frame: 4-6 Weeks Goal Progress: Progressing Goal 3:: INSTRUCT IN PROPHYLAXIS Goal Time Frame: 4-6 Weeks Goal Progress: Progressing Anticipated Interventions Patient/Client Instruction: Educate patient on: Condition, Plan of Care, Risk Factors, Benefits of Fitness Program For the Purpose of:: To improve self management Therapeutic Exercise to Include: Strength training, Body mechanics, Postural training, Flexibilty training, Neuromotor development, In an aquatic setting, Dynamic Lumbar Stabilization For the Purpose of:: To decrease pain, To increase ROM, To improve muscle performance and motor function, To increase tolerance to activity/condition/position, To improve ability of physical actions for home/community/work/leisure Please do not hesitate to contact me at [phone] by phone or if you have questions or concerns regarding this new plan of care! Sincerely, Denisa Ingram, PT, Cert MDT
--- NOTE | 2020-02-26 09:45 | HP.PTDCNRP_ITS ---
JOSELUIS HUI was seen in my office for initial evaluation on 10/27/19. The following Plan of Care was established for this patient: Initial Frequency: 2-3x /Week Initial Duration: 4-6 Weeks Patient/Client Instruction: Educate patient on: Condition, Plan of Care, Risk Factors, Benefits of Fitness Program For the Purpose of:: To improve self management Therapeutic Exercise to Include: Strength training, Body mechanics, Postural training, Flexibilty training, Neuromotor development, In an aquatic setting, Dynamic Lumbar Stabilization For the Purpose of:: To decrease pain, To increase ROM, To improve muscle perfor ronnell and motor function, To increase tolerance to activity/condition/position, To improve ability of physical actions for home/community/work/leisure This patient was last seen in our office . Pertinent comments regarding their Physical therapy will appear below: PATIENT MISSED SEVERAL FARHAT'TS DUE TO ILLNESS THEN FELL AND BROKE HER ARM WEDNESDAY SO I WILL GO AHEAD AND DISCHARGE HER CHART AT THIS TIME BUT WE WOULD BE HAPPY TO RESUME PT WHEN APPROPRIATE. At this point I will be discontinuing this patient from physical therapy. I would be happy to see this patient again in the future if found appropriate by the physician. Thank you! Denisa Ingram, PT, Cert MDT
== END 2020-01-30 19:00 | disposition home or self-care (01) ==
LOC: PT 15:30
PROVIDERS: PCP Internal Medicine; Referring Provider Internal Medicine; Visit Provider Internal Medicine
DX: M51.36 Other intervertebral disc degeneration, lumbar region (principal); M48.061 Spinal stenosis, lumbar region without neurogenic claudication
CPT/HCPCS: 97112; 97113; 97162; 97164

== ENCOUNTER 2020-02-24 12:36 | Emergency (ER) | payer MEDICARE, MEDICAID, SELFPAY ==
[2020-02-24 12:37] VITALS: BP 152/90; PULSE 82; RESP 15; TEMP 36.9; O2SAT 94; BMI 31.0
--- NOTE | 2020-02-24 12:48 | RAD_ITS ---
STUDY: X-RAY CHEST REASON FOR EXAM: Female, 75 years old. DIZZINESS, CHEST PAIN, FELL TODAY TECHNIQUE: Frontal view of the chest COMPARISON: 01 September 2017 FINDINGS: The lungs are clear and expanded. There is no demonstrated pleural abnormality. Normal size heart. Normal mediastinum and carlin. Normal visualized pulmonary arteries. Normal visualized aortic arch and descending thoracic aorta. Normal visualized thoracic spine. Normal visualized ribs, clavicles, and shoulders. There is no demonstrated abnormality of the visualized soft tissue structures of the upper abdomen. RAD/Chest 1 View (Portable) IMPRESSION: Normal x-ray examination of the chest. Electronically Signed: Stan Chen, at 15:05 EDT Tel , Service support ,
--- NOTE | 2020-02-24 12:48 | CT_ITS ---
STUDY: CT BRAIN WITHOUT CONTRAST REASON FOR EXAM: Female, 75 years old. There is a fall head pain after trauma and fall RADIATION DOSAGE (If Supplied By Facility): CTDIvol = ( 44.99 ) mGy, DLP = ( 474.13 ) mGycm TECHNIQUE: Transaxial CT imaging of the brain was performed without administration of intravenous contrast material. Individualized dose optimization techniques were used for this CT. COMPARISON: October 22 2017 FINDINGS: Brain parenchyma is without focal lesions, mass effect, acute intracranial hemorrhage, extra parenchymal fluid collections, hydrocephalus or herniation. There are mild chronic white matter ischemic hypodensities surrounding the ventricles. The skull is intact. Appearance is stable since prior. CT/Brain/Head without Contrast IMPRESSION: 1. No acute intracranial trauma. 2. Stable exam, mild age-related change. Electronically Signed: Stan Chen, at 15:08 EDT Tel , Service support ,
--- NOTE | 2020-02-24 12:48 | EKG12_ITS ---
Test Reason : Blood Pressure : / mmHG Vent. Rate : 075 BPM Atrial Rate : 075 BPM P-R Int : 176 ms QRS Dur : 108 ms QT Int : 398 ms P-R-T Axes : 033 -29 010 degrees QTc Int : 444 ms Normal sinus rhythm Poor R-wave Progression Confirmed by MYLES FLORES, YULI ([id number]), restaurant expeditor KATHIA LOBO ([id number]) on 02/27/2020 12:33:16 PM Referred By: JESSY Confirmed By:YULI BUENO MD
--- NOTE | 2020-02-24 12:59 | RAD_ITS ---
STUDY: X-RAY - RIGHT KNEE REASON FOR EXAM: Female, 75 years old. FELL TODAY, KNEE PAIN TECHNIQUE: 3 view(s) of the knee. COMPARISON: None. FINDINGS: Normal visualized distal femur. Normal visualized proximal tibia and fibula. Normal proximal tibiofibular articulation. There are minor age-appropriate degenerative changes. Normal medial femorotibial compartment. Normal lateral femorotibial compartment. Normal patellofemoral articulation. The soft tissue structures are unremarkable. RAD/Knee 4 or More Views IMPRESSION: Normal x-ray examination of the knee. Electronically Signed: Stan Chen, at 15:05 EDT Tel , Service support ,
--- NOTE | 2020-02-24 12:59 | RAD_ITS ---
STUDY: X-RAY - RIGHT WRIST REASON FOR EXAM: Female, 75 years old. Fall trauma wrist pain TECHNIQUE: 3 view(s) of the wrist were obtained. COMPARISON: None. FINDINGS: There is fracture at the base of the fifth metacarpal. There is chronic degenerative change at the base of the thumb. Remainder of the bones are intact and located. Mineralization is diffusely decreased. RAD/Wrist min 3 Views IMPRESSION: 1. Fifth metacarpal base fracture. Electronically Signed: Stan Chen, at 15:06 EDT Tel , Service support ,
--- NOTE | 2020-02-24 13:01 | ED.VIS.GEN ---
History of Present Illness Chief Complaint: Dizziness Informant: Patient Onset: Today Maximum Severity: Mild Narrative: Patient complains of falling as she was walking with a bag in her hand she believes she may have tripped on the pavement, she has pain to her right wrist right knee She indicates she has history of chronic UTIs and she was up running back and forth to the bathroom all day so she is slightly tired she does not believe that contributed to the fall as she is able to get up and go about her daily activities. No fever no cough no head neck chest or abdominal pain but she believes she may have bruised the right frontal area paramedics were called and she was brought to the emergency department history of bilateral hip replacements her only complaint is wrist and knee pain she is moving all 4 extremities no coronavirus exposures Past Medical History - Allergies and Home Meds Allergies/Adverse Reactions: Allergies codeine Adverse Reaction (Mild, Verified 03/01/18 14:53) Upset Stomach hydroxyzine HCl [From Vistaril] Adverse Reaction (Mild, Verified 03/01/18 14:53) Rash hydroxyzine pamoate [From Vistaril] Adverse Reaction (Mild, Verified 03/01/18 14:53) Rash Primary Care Physician: Octavia Nichols DO [Primary Care Provider] - Past Medical History: - - Fluids as above Surgical History: herniorrhaphy, total hip arthroplasty Smoking Status: Never smoker Review of Systems General: Denies: Chills, Fever, Sweats Eyes: Denies: Visual changes - bilaterally, Diplopia ENT: Denies: Rhinorrhea, Sore throat Cardiovascular: Denies: Chest pain, Palpitations Respiratory: Denies: Dyspnea, Cough, Dyspnea on exertion Gastrointestinal: Denies: Abdominal pain, Nausea, Vomiting, Diarrhea, Melena, Hematochezia Genitourinary: Denies: Dysuria, Hematuria, Frequency Musculoskeletal: Reports: Extremity Pain. Denies: Back pain Skin: Denies: Rash, Wounds Neurological: Denies: Headache, Weakness, Numbness Physical Exam Vital Signs/Narrative: Vital Signs Temp Pulse Resp BP Pulse Ox 02/24/20 12:37 98.4 F 82 15 152/90 H 94 General: Well nourished, Well developed, No Acute Distress Head: Normocephalic, Atraumatic Eyes: Perrl, EOMI ENT: Moist mucous membranes, No rhinorrhea Neck: Supple, Nontender Cardiovascular: Regular rate, Regular rhythm, No murmurs Respiratory: No distress, CTA bilaterally, Chest nontender Abdomen: Soft, Nontender, Nondistended, Normal bowel sounds Back: Nontender, Normal Inspection Extremities: No edema, - - Fusion to the right wrist no obvious instability hand function is normal forearm elbow shoulder unremarkable she is a contusion to the right knee full range of motion Extension intact no hip pain no pelvic pain no back pain she does have a small abrasion very subtle to the right frontal area she denies LOC or neck pain or chest pain Skin: Normal color, No rash Neurological: Alert, Oriented x3, Cranial nerves II-XII grossly intact, Normal Strength, Normal Sensation Psychological: Normal affect, Normal Mood Diagnostic/Tx/Re-eval - Medical Decision Making The differential is rather extensive given all the above ED screening evaluations done Patient's ED screening evaluation with labs CT generally unremarkable see all those reports x-rays also unremarkable except for the wrist x-ray that shows a fracture at the base of the fifth metatarsal see those reports,, bladder scan showed no retained urine The patient was placed in the AP splints using the plaster to the hand with good comfort normal exam afterwards, fingers and some flexion, she does not wish to have crutches there is no signs of UTI urine culture was sent she has no history or signs of urinary retention, we will start her on Pyridium which might help her sense of urgency and she will follow-up with her outpatient providers in the next few days States she is feeling better she wants to go home she lives with her who will be picking her up she will keep the hand elevated Naprosyn Tylenol for pain she is able to take [place] as rescue medicine at bedtime she is referred to [facility] hand service Stable home Final impression fall, right wrist injury with fracture base of fifth metatarsal right, right knee injury, urinary frequency ED Disposition - Plan for ED Patient: Diagnosis: Right hand fracture Instructions: ED WRIST FRACTURE General, ED Fx Hand Closed Prescriptions: Naproxen [Naprosyn] 500 mg PO BID PRN #20 tab Prescription Printed Hydrocodone Bitart/Apap 5-325 [[place] 5MG-325MG] 1 tab PO Q4H PRN PRN 2 Days #10 tab PRN Reason: Pain Prescription Printed Referrals: Octavia Nichols DO [Primary Care Provider] - Additional Instructions: Keep splint on until seen, call [facility] orthopedics [phone] for an appointment, with hand surgeon, follow-up with your urologist and other outpatient providers
[2020-02-24 13:20] VITALS: BP 151/87; PULSE 60; RESP 14; O2SAT 95
[2020-02-24 13:47] LABS: Absolute Lymphocyte Count 1.38 X10^3/uL (0.83-4.51); Absolute Neutrophil Count 3.5 X10^3/uL (2.0-7.7); Bacteria 0 SEEN /hpf (None Seen); Basophil# 0.04 X10^3/uL; Basophil% 0.7 % (0-1); Eosinophil# 0.22 X10^3/uL; Eosinophils% 3.7 % (0-5); Hematocrit 41.9 % (37-47); Hemoglobin 13.3 g/dL (12.0-15.0); Lymphocyte # 1.38 X10^3/ul (4.0); Lymphocyte % 23.2 % (19-41); Mean Corp Hgb Conc 31.7 g/dL (32-36); Mean Corpuscular Hgb 27.8 pg (27.0-32.0); Mean Corpuscular Volume 87.7 fL (81-99); Monocyte# 0.72 X10^3/uL; Monocyte% 12.1 % (0-10); Mucous, Urine 0 SEEN /hpf (<or=2+); NRBC Flagged by Analyzer 0 % (0-5); Neutrophil # 3.54 X10^3/uL (2.7-7.7); Neutrophil % 59.6 % (47-70); Platelet Count 238 K/mm3 (150-450); RBC Distribution Width CV 13.2 % (11.6-14.6); RBC Distribution Width SD 42.5 fl (35.1-43.9); Red Blood Cells-Urine 0 SEEN /hpf (0-5); Red Blood Count 4.78 M/mm3 (4.2-5.4); Squamous Epithelial Cells - UA 0 SEEN /hpf (5-10); White Blood Cells 0 SEEN /hpf (0-5); White Blood Count 5.9 K/mm3 (4.4-11.0)
[2020-02-24 14:02] LABS: Anion Gap 4 (5-15); BUN 15 mg/dL (7-18); BUN/Creat Ratio 21.1 RATIO (10-20); Calcium,Total 9.4 mg/dL (8.5-10.1); Chloride 105 mmol/L (98-107); Creatinine, Serum 0.71 mg/dL (0.55-1.02); EST Glomerular Filtration Rate 86 mL/min (>60); Est Glom Filt Rate - Afr Amer 104 mL/min (>60); Estimated Creatinine Clearance 39.04 ml/min; Glucose 93 mg/dL (74-106); Potassium 3.8 mmol/L (3.5-5.1); Sodium Level 140 mmol/L (136-145)
[2020-02-24 14:07] LABS: Color, Urine Yellow (Yellow); Glucose, Dipstick Normal (Normal); Ketone-Dipstick Negative (Negative); Leukocyte Esterase-Dipstick Negative /ul (Negative); Nitrite-Dipstick Negative (Negative); Occult Blood-Urine Negative /ul (Negative); Protein-Dipstick Negative (Negative); Urine Bilirubin Dipstick Negative (Negative); Urine Clarity Clear (Clear); Urine Urobilinogen Normal (Normal)
[2020-02-24] MEDS: 0.9% Normal Saline 1,000 ML 150 ML IV (14:12)
[2020-02-24 14:42] VITALS: BP 114/92; PULSE 76; RESP 17; O2SAT 96
[2020-02-24 15:10] VITALS: BP 151/91; PULSE 73; RESP 19; O2SAT 96
[2020-02-24] MEDS: Naproxen 500 MG Tablet PO (15:10)
[2020-02-24 15:45] VITALS: BP 152/92; PULSE 75; RESP 20; O2SAT 96
== END 2020-02-24 15:55 | disposition home or self-care (01) ==
LOC: ED 13:36
PROVIDERS: Emergency Provider Emergency Medicine; PCP Internal Medicine
DX: S62.316A Displaced fracture of base of fifth metacarpal bone, right hand, initial encounter for closed fracture (principal); S80.01XA Contusion of right knee, initial encounter; R35.0 Frequency of micturition; W18.30XA Fall on same level, unspecified, initial encounter; Y93.01 Activity, walking, marching and hiking; Y92.89 Other specified places as the place of occurrence of the external cause; Y99.8 Other external cause status
CPT/HCPCS: 29125; 70450; 71045; 73110; 73564; 80048; 81001; 84484; 85025; 87086; 93005; 96360; 96361; 99285; J7030; P9612

== ENCOUNTER → 2020-03-04 15:12 | Outpatient (CLI) | payer MEDICARE, MEDICAID, SELFPAY ==
[2020-02-24 12:37] VITALS: BMI 31.0
--- NOTE | 2020-03-04 | FLU_PTH ---
AGE/SX: ROOM: REG: REG DR: LINA: BED: DIS: SPEC #: [id number] RECD: 03/04/20 15:00 STATUS: GALINA RERosalina #: [id number] DEVIN: 03/04/20 00:[address]: Angelica Stark DEPT: CYTOLOGY RECD BY: Prudencio Urena ENTERED: 03/05/20 12:52 SP TYPE: Fluid OTHR DR: Dr. Octavia Nichols DO Tissues: Urine Procedures: Special Stain Group II Cytospin Fluid HEADER OPERATION: Not noted PRE-OP DIAGNOSIS: Gross hematuria TISSUE SUBMITTED: Urine for cytology DIAGNOSIS CYTOLOGY Urine for cytology (cytospin): Negative for malignant cells. AM:zach 03/06/20 CYTOLOGY STUDY Slides are reviewed. CYTOLOGY GROSS Received is 20 ml of light yellow cloudy fluid labeled with the patient's name and and designated per the requisition as urine. Submitted for cytology preparation. / zach 03/05/20 TC:5 CPT: 84079
[2020-03-04 15:50] LABS: Cytology, Body Fluid / CSF SEE PATHOLOGY REPORT
== END ==
PROVIDERS: Urology
DX: R31.0 Gross hematuria (principal)
CPT/HCPCS: 88108; 88313

== ENCOUNTER → 2020-03-11 08:01 | Outpatient (CLI) | payer MEDICARE, MEDICAID, SELFPAY ==
[2020-02-24 12:37] VITALS: BMI 31.0
--- NOTE | 2020-03-11 08:04 | CT_ITS ---
STUDY: CT ABDOMEN AND PELVIS WITH AND WITHOUT CONTRAST REASON FOR EXAM: Female, 75 years old. GROSS HEMATURIA, HX-DB-DIET CONTROLLED, SURG-HERNIA X3, BILAT HIP REPLACEMENTS, COLON POLYP REMOVED RADIATION DOSAGE (If Supplied By Facility): CTDIvol = ( 20.94 ) mGy, DLP = ( 3389.68 ) mGycm TECHNIQUE: Transaxial images were obtained from the dome of the diaphragm to the symphysis pubis without oral contrast. IV 100mL Isovue-300 was administered. Sagittal and coronal images were reconstructed. Individualized dose optimization techniques were used for this CT. COMPARISON: Comparison is made with prior study dated 12/06/2014. FINDINGS: The visualized lung bases are unremarkable. The visualized portions of the heart are within normal limits. Normal liver. Normal gallbladder and extrahepatic biliary system. There is a 1.1 cm cyst in the inferior aspect of the spleen. Normal pancreas. Normal bilateral adrenal glands. Scattered tiny cysts are seen in the right kidney. There is a 1.3 cm cyst in the anterior aspect of the left kidney. There are 2 small cysts in the lower pole of the left kidney as well. There is a small hiatal hernia. Normal small intestine. Normal colon. The appendix is visualized and appears normal. There is diffuse atherosclerotic calcification of the abdominal aorta and its major visceral branches, without a demonstrated aneurysm. Normal inferior vena cava. Normal retroperitoneum. Normal urinary bladder. There is evidence of prior ventral hernia repair utilizing a mesh. There are diffuse degenerative changes of the visualized lumbar spine. Status post bilateral total hip preplacement. CT/CT Abd/Pelvis W/WO Contrast IMPRESSION: Small bilateral renal cysts. Prior repair of an anterior abdominal wall hernia utilizing a mesh. Electronically Signed: Suleman Chan, at 10:50 EDT , Service support ,
== END ==
PROVIDERS: PCP Internal Medicine; Referring Provider Urology; Visit Provider Urology
DX: R31.0 Gross hematuria (principal)
CPT/HCPCS: 74178; Q9967

== ENCOUNTER 2020-05-20 13:30 | Outpatient (RCR) | payer MEDICARE, MEDICAID, SELFPAY ==
--- NOTE | 2020-04-08 09:26 | HP.OTEVAL_ITS ---
Patient's Visit Information JOSELUIS HUI is a 75 year old F, referred to Occupational Therapy by KESHA MILLER, with a diagnosis of right 5th metacarpal bone fx. Date of Evaluation: 04/08/20 Occupational Therapist: Destini Barahona, OTRomeo/Rajeev, CHT - Subjective This 75 year old female was seen for OT eval with dx of 5th meacarpal bone of right hand pt states DOI was on 02/24/20 when pt had a fall at home while walking. pt states she was casted for about 6 weeks and arrives today with orthosis on. pt states cast was removed last week. - Pain right hand 8 Pain Intensity Range: 5, 9 - ROM Wrist: right 25/30 left 35/30 Opposition: right 3 left 10 MP: right LF 0/15 right RF 30 left lf 0/85 left RF 0/75 PIP: right LF 0/5 right RF 0/20 left LF 0/100 left RF 0/95 ROM Comments: pt demo with inability to form a composite fist - Strength Receptionist Secretary: right unable left 25# Lateral Pinch: right unable left 2# Tripod Pinch: right unable left 2# - Quick DASH-Disab of Arm,Shoulder& Hand Quick DASH Score: 75.0000 - Goals Goal:: PT will demo an increase in account planner strength by 20# to increase independent with basic occupations of daily living to return pt to PLOF by D/C. Pt will demo an increase in lateral and tripod pinch by 2# to increase pts independent with opening baggies, containers at PLOF by D/C. Goal:: Pt will demo an increase in wrist ROM equal to unaffected wrist to return pt to PLOF with grooming, dressing and home mtg tasks by D/C. Pt will demo the ability to form a composite fist to return to performing BADLs and IADLS at PLOF by d/c. Goal:: Pt will report pain no greater than 1/10 with use of affected hand with BADLs and IADLs by d/c. Goal:: Pt will demo understanding of joint protection and ergonomics when performing BADLs and IADLs by d/c. Pt will demo understanding of adaptive Equipment use to decrease stress on joints to allow pt to perform BADSL and IADLS at NORRIS level. - Rehabilitation General Assessment: pt demo with healing fx, pain and limited ROM increasing need of assisst with ADLs and IADLS. pt would benefit from skilled OT 1-2x week for 6 weeks. Therapy will challenge pts return of ROM, reduce pain and increase pts strength to return to PLOF with ADLs and IADLS. Today therapist ed. pt on AROM of wrist and digits pt demo understanding of ex and agree to POC. Rehabilitation Potential: Good - Anticipated Interventions A/AAROM/PROM, Strengthening, Triggerpoint Release, Modalities, Orthoses, Joint Protection/Energy Conservation, Ergonomic Education, Fine Motor Coord/Alex - Visit Plan Frequency: 1-2x /Week Duration: 6 Weeks TEXT: Thank you for the opportunity to evaluate your patient. For Medicare and Medicare HMO plans, please review the plan of care and approve it. It will need to be FAXED BACK to us at [phone] for Medicare purposes. Please let me know if there are questions or concerns regarding this plan of care. Physician Signature: Date:
--- NOTE | 2020-04-08 15:12 | HP.OTEVAL ---
Patient's Visit Information JOSELUIS HUI is a 75 year old F, referred to Occupational Therapy by KESHA MILLER, with a diagnosis of right 5th metacarpal bone fx. Date of Evaluation: 04/08/20 Occupational Therapist: Destini Barahona, OTRomeo/Rajeev, CHT - Subjective This 75 year old female was seen for OT eval with dx of 5th meacarpal bone of right hand pt states DOI was on 02/24/20 when pt had a fall at home while walking. pt states she was casted for about 6 weeks and arrives today with orthosis on. pt states cast was removed last week. pt states she is limited with use of her right hand with all ADLs and IADLS at this time. - ADLs Dressing: Bra, Shoes Fasteners: Tie shoes, [place] Eating: Use silverware, Drink from glass Bathing: Handle washcloth & soap, Wash hair, Squeeze shampoo bottle Kitchen: Open jars, Open bottle caps, Take dish out of oven - Pain right hand 8 Pain Intensity Range: 5, 9 - ROM Wrist: right 25/30 left 35/30 Opposition: right 3 left 10 MP: right LF 0/15 right RF 30 left lf 0/85 left RF 0/75 PIP: right LF 0/5 right RF 0/20 left LF 0/100 left RF 0/95 ROM Comments: pt demo with inability to form a composite fist - Strength Videotape Operator: right unable left 25# Lateral Pinch: right unable left 2# Tripod Pinch: right unable left 2# - Quick DASH-Disab of Arm,Shoulder& Hand Quick DASH Score: 75.0000 - Goals Goal:: PT will demo an increase in insights strategist strength by 20# to increase independent with basic occupations of daily living to return pt to PLOF by D/C. Pt will demo an increase in lateral and tripod pinch by 2# to increase pts independent with opening baggies, containers at PLOF by D/C. Goal:: Pt will demo an increase in wrist ROM equal to unaffected wrist to return pt to PLOF with grooming, dressing and home mtg tasks by D/C. Pt will demo the ability to form a composite fist to return to performing BADLs and IADLS at PLOF by d/c. Goal:: Pt will report pain no greater than 1/10 with use of affected hand with BADLs and IADLs by d/c. Goal:: Pt will demo understanding of joint protection and ergonomics when performing BADLs and IADLs by d/c. Pt will demo understanding of adaptive Equipment use to decrease stress on joints to allow pt to perform BADSL and IADLS at NORRIS level. - Rehabilitation General Assessment: pt demo with healing fx, pain and limited ROM increasing need of assisst with ADLs and IADLS. pt would benefit from skilled OT 1-2x week for 6 weeks. Therapy will challenge pts return of ROM, reduce pain and increase pts strength to return to PLOF with ADLs and IADLS. Today therapist ed. pt on AROM of wrist and digits pt demo understanding of ex and agree to POC. Rehabilitation Potential: Good - Anticipated Interventions A/AAROM/PROM, Strengthening, Triggerpoint Release, Modalities, Orthoses, Joint Protection/Energy Conservation, Ergonomic Education, Fine Motor Coord/Alex - Visit Plan Frequency: 1-2x /Week Duration: 6 Weeks TEXT: Thank you for the opportunity to evaluate your patient. For Medicare and Medicare HMO plans, please review the plan of care and approve it. It will need to be FAXED BACK to us at [phone] for Medicare purposes. Please let me know if there are questions or concerns regarding this plan of care. Physician Signature: Date:
--- NOTE | 2020-05-20 13:35 | HP.OTDCSUM_ITS ---
It has been my pleasure to treat JOSELUIS HUI under orders from KESHA MILLER, for the diagnosis of right 5th metacarpal bone fx for a total of 9 visit(s). Please see the following information for a summary of their discharge status. % Improvement: 80 Objective/Function: right learning engineer strength 24# a increase from 0#. pt demo a the ability to form a full composite fist Patient Goals: Regain Mobility, Use Hand/Wrist/Arm Normally Again Goal:: PT will demo an increase in learning engineer strength by 20# to increase independent with basic occupations of daily living to return pt to PLOF by D/C. Pt will demo an increase in lateral and tripod pinch by 2# to increase pts independent with opening baggies, containers at PLOF by D/C. Goal:: Pt will demo an increase in wrist ROM equal to unaffected wrist to return pt to PLOF with grooming, dressing and home mtg tasks by D/C. Pt will demo the ability to form a composite fist to return to performing BADLs and IADLS at PLOF by d/c. Goal:: Pt will report pain no greater than 1/10 with use of affected hand with BADLs and IADLs by d/c. Goal:: Pt will demo understanding of joint protection and ergonomics when performing BADLs and IADLs by d/c. Pt will demo understanding of adaptive Equipment use to decrease stress on joints to allow pt to perform BADSL and IADLS at NORRIS level. Plan: D/c Discharge Comments: pt was seen for 9 visits and has made gains with her ROM and use of her right hand with ADls and IADLs. pt states she is 80% improvement and feeling good- pt has met goals ath this time and therapist has ed. pt to cont. with her HEP and cont. use of hand with ADls and IADS. If there are questions or concerns regarding this patient's occupational therapy, please fell free to call me at [phone]. Thank you for the referral of this patient. Sincerely, Destini Barahona, OTR/L, CHT
== END 2020-05-20 19:00 | disposition home or self-care (01) ==
LOC: OT 13:30
PROVIDERS: PCP Internal Medicine
DX: S62.316D Displaced fracture of base of fifth metacarpal bone, right hand, subsequent encounter for fracture with routine healing (principal)
CPT/HCPCS: 97110; 97166; 97530

== ENCOUNTER → 2020-08-23 14:36 | Outpatient (CLI) | payer MEDICARE, MEDICAID, SELFPAY ==
--- NOTE | 2020-08-23 14:38 | CT_ITS ---
STUDY: CT BRAIN WITHOUT CONTRAST REASON FOR EXAM: Female, 75 years old. ALTERED MENTAL STATUS RADIATION DOSAGE (If Supplied By Facility): CTDIvol = ( 44.99 ) mGy, DLP = ( 779.24 ) mGycm TECHNIQUE: Transaxial CT imaging of the brain was performed without administration of intravenous contrast material. Individualized dose optimization techniques were used for this CT. COMPARISON: FINDINGS: Normal soft tissue structures. Normal calvarium. Normal size ventricles and extra-axial spaces for the patient''s age. Normal white matter tracts of the cerebral hemispheres. Normal basal ganglia and thalami. Normal brainstem. Normal cerebellum. There is no intracranial hemorrhage. There are no findings of an acute ischemic infarction. Normal visualized paranasal sinuses. CT/Brain/Head without Contrast IMPRESSION: Chronic involutional changes of the brain. No acute hemorrhage or significant interval change Electronically Signed: Kamar Lovelace MD at 15:46 EDT , Service support ,
== END ==
PROVIDERS: PCP Internal Medicine; Referring Provider Internal Medicine; Visit Provider Internal Medicine
DX: R41.82 Altered mental status, unspecified (principal)
CPT/HCPCS: 70450

== ENCOUNTER → 2020-10-04 11:12 | Outpatient (CLI) | payer MEDICARE, MEDICAID, SELFPAY ==
--- NOTE | 2020-10-04 11:16 | ECHOD_ITS ---
Version 2 Reason For Study: Murmur Procedure This was a 2D Doppler, Color Flow transthoracic echocardiogram. Exam performed in department. Left Ventricle Normal LV size. The estimated ejection fraction is 60 %. Unable to assess diastolic dysfunction. No regional wall motion abnormalities noted. Right Ventricle Normal RV size. Normal systolic function. Atria Normal left atrium. Normal right atrium. No doppler evidence for ASD. Bubble contrast study negative for right to left interatrial shunt. Mitral Valve There is moderate to severe mitral annular calcification. There is no mitral valve stenosis. No mitral valve insufficiency. Tricuspid Valve There is no tricuspid stenosis. Trivial tricuspid valve insufficiency. Pulmonary artery systolic pressure is 25 mmHg. Aortic Valve Moderate diffuse aortic valve thickening. Mild aortic stenosis. No aortic valve insufficiency. Pulmonic Valve There is no pulmonic valvular stenosis. No pulmonic valve insufficiency. Great Vessels Normal aortic root. Pericardium/Pleural No pericardial effusion. Medication 22 gauge I.V. with prn adaptor inserted into right arm. Performed a rapid injection of agitated mix of 9 cc saline and 1cc air to assess for atrial septal defect. MMode/2D Measurements & Calculations LVIDd: 3.5 cm IVSd: 1.2 cm LVOT diam: 2.1 cm LVIDs: 1.5 cm LVPWd: 1.1 cm RVDd: 3.1 cm FS: 58.6 % LVOT area: 3.4 cm2 Ao root diam: 3.4 cm LAV(MOD-bp): 55.7 ml LA A4 area: 15.8 cm2 LAV(MOD-bp) Indexed: 30.5 ml/m2 LAV(MOD-sp2): 64.3 ml LAV(MOD-sp4): 44.0 ml LA dimension(2D): 3.9 cm RA A4 area: 10.1 cm2 Doppler Measurements & Calculations MV E max ambrose: 77.7 cm/sec Lat Peak E' Ambrose: 3.9 cm/sec Med Peak E' Ambrose: 4.1 cm/sec MV A max ambrose: 105.3 cm/sec E/E' lat: 20.0 E/E' med: 18.8 MV E/A: 0.74 Ao V2 max: 226.6 cm/sec LV V1 max: 133.0 cm/sec SV(LVOT): 97.0 ml Ao max P.6 mmHg LV V1 max P.1 mmHg Ao V2 mean: 153.9 cm/sec LV V1 mean P.0 mmHg Ao mean P.7 mmHg LV V1 mean: 95.7 cm/sec Ao V2 VTI: 46.1 cm LV V1 VTI: 28.9 cm LEON(I,D): 2.1 cm2 LEON(V,D): 2.0 cm2 PA V2 max: 94.2 cm/sec TR max ambrose: 233.2 cm/sec TR max P.8 mmHg ECHO/Echo Complete Interpretation Summary The estimated ejection fraction is 60 %. Unable to assess diastolic dysfunction. Mild aortic stenosis. Ordering Physician: Octavia Nichols Referring Physician: Octavia Nichols Performed By: Leslee Schaffer RDCS
--- NOTE | 2020-10-04 11:30 | MRI_ITS ---
STUDY: MRI BRAIN WITHOUT CONTRAST REASON FOR EXAM: Female, 75 years old. word finding difficulty TECHNIQUE: Standardized multiplanar fat and water weighted pulse sequences were obtained. COMPARISON: CT 08/23/2020 FINDINGS: There is moderate cerebral atrophy with widening of the extra-axial spaces and ventricular dilatation. There are multiple white matter hyperintensities, distributed throughout the deep white matter tracts of the cerebral hemispheres, consistent with moderate chronic white matter ischemic changes. There is no evidence for recent intracranial ischemia or other cause of cytotoxic edema on diffusion weighted imaging (DWI). Normal T2* images of the brain without demonstrated susceptibility artifact. There is no demonstrated hemosiderin stain. Normal bilateral basal ganglia. Normal thalami. There is no extra-axial fluid accumulation. Normal flow voids within the major intracranial circulation suggesting patency by spin echo criteria. Normal sella turcica, pituitary gland, infundibular stalk, optic chiasm and hypothalamus. Normal tectal plate and pineal gland. Normal midbrain, stephanie and medulla. Normal cerebellum. Normal basal cisterns. Normal bilateral temporal bones. Normal bilateral internal auditory canals. No demonstrated orbital abnormality, within the constraints of a routine brain study. Normal visualized paranasal sinuses. Normal calvarium and skull base. Normal visualized soft tissue structures. Normal visualized upper cervical spine. MRI/Brain without Contrast IMPRESSION: Involutional changes of the brain, as described above. No acute infarct. Electronically Signed: Sd Cade MD at 12:25 EDT Tel , Service support ,
== END ==
PROVIDERS: PCP Internal Medicine; Referring Provider Internal Medicine; Visit Provider Internal Medicine
DX: R47.89 Other speech disturbances (principal); R01.1 Cardiac murmur, unspecified
CPT/HCPCS: 70551; 93306; A4216

== ENCOUNTER → 2020-12-27 10:18 | Outpatient (CLI) | payer MEDICARE, MEDICAID, SELFPAY ==
--- NOTE | 2020-12-27 10:30 | BI_ITS ---
MAMMOGRAPHY - BILATERAL SCREENING REASON FOR EXAM: Female, 75 years old. Routine annual screening examination. PERTINENT HISTORY: Aunt with breast cancer. Remote right excisional breast biopsy. TECHNIQUE: Digital bilateral breast javier (3D mammographic acquisition) in the CC and MLO projections. 2-D mediolateral oblique (MLO) and craniocaudad (CC) views of both breasts were obtained. CAD: Full Field Digital Mammography with Computer Added Detection was performed. COMPARISON: Comparison is made with prior study 12/26/2019 and 12/13/2018 FINDINGS: Breast Composition: The breasts are almost entirely fatty. There are no dominant masses or suspicious calcifications. Stable scattered bilateral secretory calcifications. No other significant abnormalities are identified. There has been no significant change since the prior study. BI/SCRN MAMM (CAD)W/JAVIER BILAT IMPRESSION: Stable bilateral screening mammogram. Yearly follow-up mammogram recommended. (A) ASSESSMENT CATEGORY: BIRADS Category 2: Benign. A letter regarding these results will be sent to the patient by the facility within 30 days. Approximately 10% of breast cancers are not detected by mammography. A normal mammogram should not delay biopsy of a clinically suspicious abnormality. [id number] Electronically Signed: Suleman Chan MD at 11:38 EDT , Service support ,
== END ==
PROVIDERS: PCP Internal Medicine; Referring Provider Internal Medicine; Visit Provider Internal Medicine
DX: Z12.31 Encounter for screening mammogram for malignant neoplasm of breast (principal); Z80.3 Family history of malignant neoplasm of breast
CPT/HCPCS: 77063; 77067

== ENCOUNTER → 2021-04-21 17:37 | Outpatient (CLI) | payer MEDICARE, MEDICAID, SELFPAY | PROVIDERS: PCP Internal Medicine; Referring Provider Student in an Organized Health Care Education/Training Program; Visit Provider Student in an Organized Health Care Education/Training Program | DX: E11.621 Type 2 diabetes mellitus with foot ulcer (principal); L97.509 Non-pressure chronic ulcer of other part of unspecified foot with unspecified severity | CPT/HCPCS: 87070; 87075; 87077; 87186; 87205 ==

== ENCOUNTER 2021-05-05 09:30 | Outpatient (RCR) | payer MEDICARE, MEDICAID, SELFPAY ==
--- NOTE | 2021-03-17 15:42 | HP.PTEVAL_ITS ---
Patient's Visit Information JOSELUIS HUI is a 76 year old F referred to Physical Therapy by Dr. Octavia Nichols DO with a diagnosis of R shoulder impingement, LLE weakness. Date of Evaluation: 03/17/21 Physical Therapist: Ramya Colbert - Visit Plan Frequency: 2x /Week Duration: 4 Weeks Plan: 1. Strengthening, stretching, ROM of R shoulder with manual therapy as indicated. 2. Strengthening and balance training to increase functional activity and strength in LEs to increase ambulation confidence. 3. Education on HEP/activity level to maintain, increase strength. - Subjective Pt had a fall ~4 weeks ago in her house (tripped and fell over a piece of furniture). Pt crawled over to a chair to help her get up. When she got up, she noticed leg pain, which has since resolved. States her legs feel weak since falling and she would like to get them stronger. She has been using a SPC since she fell, suggested by a nurse who comes 1x/wk from [facility] for the past year for help with managing medications and day to day living. She also has a student Health Electronic Warfare Operator who helps her monitor meal intake, blood pressure, and weight. Pt reports her R shoulder pain began end of December. She cannot think of anything that would have started the pain, but when she reached up to grab something off a shelf, she realized it was hurting her, like she had pulled a muscle. She has felt pain ever since. ADLs are painful, but manageable. Pt has had 2 cortisone shots, with the most recent being 10 days ago. She reports this helps the pain. Reports she feels only a pulling sensation with movement since the shot, but before that she was not able to move it much without pain. She also ices the shoulder 2x/day. Pain: 0/10 at rest. at worst 8-9/10 when she's laying down in bed or with movement - Pain R shoulder Pain Intensity (Out of 10): 0 Pain Intensity Range: 0, 9 Comment: 9/10 pain without cortisone shot - Objective POSTURE: forward head, slightly kyphotic. 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 ROM:R shoulder- 145 degrees flexion, 120 degrees abduction, 90 degrees ER, 32 degrees IR (pull at top of shoulder at all EROM), 40 degrees extension. L shoulder- flexion, abduction, IR WFL, 70 degrees ER, UEs otherwise WFL. LEs: WFL. MMT: LUE grossly 4/5, RUE: flexion/abd 3+/5 (pain with resistance), ER 3/5, IR 4/5, elbow/hand 4/5. RLE: grossly 4/5, RLE: hip flexion 3+/5, knee extension 4-/5, knee flexion 4/5, abd/add 3+/5,. GAIT: Pt amb with SPC without gait deviations. She is able to ambulate without it, but feels more steady/secure when she uses it. STS: 9 on 30 sec without arms - Balance/Special Test Scores Lower Extremity Functional Score: 34 Quick DASH Score: 54.5450 30 Second Chair Rise Test Seconds: 9 - Goals Goal 1:: Pt to be I with HEP Goal Time Frame: 2-4 Weeks Goal 2:: Pt to demonstrate pain free R shoulder full AROM Goal Time Frame: 4-6 Weeks Goal 3:: Pt to demonstrate increase RUE strength as evidenced by increased ability to complete ADLs with no more than 1-2/10 pain. Goal Time Frame: 4-6 Weeks Goal 4:: Pt to complete at least 12 STS in 30 sec without use of arms, indicating increased functional LE strength. Goal Time Frame: 4-6 Weeks - Rehabilitation Potential Physical Therapy Diagnosis: Patient presents with signs and symptoms consistent with R shoulder impingement and LLE weakness. Patient presents with decreased ROM, strength, participation in ADLs due to pain Rehabilitation Potential: Good - Anticipated Interventions Patient/Client Instruction: Educate patient on: Condition, Plan of Care Therapeutic Exercise to Include: Strength training, Balance training, Coordination, Postural training, Gait and locomotor training, Passive ROM, Active ROM For the Purpose of:: To decrease pain, To increase ROM, To improve ability to perform ADL's, To improve gait and locomotor functions, To improve safety with gait Manual Therapy Techniques to Include: Mobilization For the Purpose of:: To increase ROM Thank you for the opportunity to evaluate your patient. For Medicare and Medicare HMO plans, please review the plan of care and approve it. It will need to be FAXED BACK to us at [phone] for Medicare purposes. For Medicare only, by signing this I certify the plan of care. Please let me know if there are questions or concerns regarding this plan of care. Physician Signature: Date:
== END 2021-05-05 19:00 | disposition home or self-care (01) ==
LOC: PT 09:30
PROVIDERS: PCP Internal Medicine; Referring Provider Internal Medicine; Visit Provider Internal Medicine
DX: M25.811 Other specified joint disorders, right shoulder (principal); R29.898 Other symptoms and signs involving the musculoskeletal system; Z91.81 History of falling
CPT/HCPCS: 97110; 97161

== ENCOUNTER 2021-05-27 09:31 | Emergency (ER) | payer MEDICARE, MEDICAID, SELFPAY ==
[2021-05-27 09:33] VITALS: BP 144/77; PULSE 76; RESP 16; TEMP 36.4; O2SAT 100; BMI 31.6
--- NOTE | 2021-05-27 09:56 | EKG12_ITS ---
Test Reason : SYNCOPE Blood Pressure : / mmHG Vent. Rate : 054 BPM Atrial Rate : 054 BPM P-R Int : 132 ms QRS Dur : 098 ms QT Int : 430 ms P-R-T Axes : 003 -26 026 degrees QTc Int : 407 ms Sinus bradycardia Otherwise normal ECG Confirmed by MYLES FLORES, YULI ([id number]), graphic editor JALEEL MCCRACKEN ([id number]) on 05/28/2021 11:45:51 AM Referred By: JANEE Confirmed By:YULI BUENO MD
[2021-05-27 10:13] LABS: Bacteria 0 SEEN /hpf (None Seen); Mucous, Urine 0 SEEN /hpf (<or=2+); Red Blood Cells-Urine 0 SEEN /hpf (0-5); Squamous Epithelial Cells - UA 0 SEEN /hpf (5-10); White Blood Cells 0 SEEN /hpf (0-5)
[2021-05-27 10:23] LABS: Color, Urine STRAW (Yellow); Glucose, Dipstick Normal (Normal); Ketone-Dipstick Negative (Negative); Specific Gravity, Urine 1.005 (1.002-1.030); Urine Bilirubin Dipstick Negative (Negative); Urine Clarity Clear (Clear)
[2021-05-27 10:24] LABS: Absolute Lymphocyte Count 1.23 X10^3/uL (0.83-4.51); Absolute Neutrophil Count 4.5 X10^3/uL (2.0-7.7); Basophil# 0.03 X10^3/uL; Basophil% 0.4 % (0-1); Eosinophil# 0.12 X10^3/uL; Eosinophils% 1.8 % (0-5); Hematocrit 39.4 % (37-47); Hemoglobin 12.7 g/dL (12.0-15.0); Lymphocyte # 1.23 X10^3/ul (0.83-4.51); Lymphocyte % 18.1 % (19-41); Mean Corp Hgb Conc 32.2 g/dL (32-36); Mean Corpuscular Hgb 27.7 pg (27.0-32.0); Monocyte# 0.93 X10^3/uL; Monocyte% 13.7 % (0-10); NRBC Flagged by Analyzer 0 % (0-5); Neutrophil # 4.45 X10^3/uL (2.7-7.7); Neutrophil % 65.6 % (47-70); Platelet Count 240 K/mm3 (150-450); RBC Distribution Width CV 13.3 % (11.6-14.6); RBC Distribution Width SD 41.4 fl (35.1-43.9); Red Blood Count 4.58 M/mm3 (4.2-5.4); White Blood Count 6.8 K/mm3 (4.4-11.0)
[2021-05-27 10:24] LABS: Leukocyte Esterase-Dipstick NEGATIVE /ul (Negative); Nitrite-Dipstick NEGATIVE (Negative); Occult Blood-Urine NEGATIVE /ul (Negative); Protein-Dipstick NEGATIVE (Negative); Urine Urobilinogen Normal (Normal)
--- NOTE | 2021-05-27 10:28 | EDS_ITS ---
HPI History of Present Illness Chief Complaint: Syncope Informant: patient Onset/Context/Timing Onset: Today Context: Sudden Onset Timing: Intermittent Quality: Syncopal episode now neck pain Location: Home, posterior neck pain and occipital head pain Current Severity: Mild Maximum Severity: Moderate Worsened by: Movement Relieved by: Nothing Associated Symptoms Associated Symptoms: None Narrative Narrative: Is a 76-year-old woman who presents because of syncopal. Upon arising she fell. She had no prodrome. She denied any symptoms. She denies black or maroon stool. She is not on anticoagulant. She is on baby aspirin a day. She states initially she did not have head pain or neck pain. She was given option of transport to the hospital when seen by paramedics and declined. She contacted her primary care provider who recommended she come to the emergency room versus going to an urgent care. She presently complains of pain in the occiput area and posterior neck. This is worse with movement. She denies paresthesia, anesthesia or motor weakness in her arms or legs. She denies double vision, blurred vision loss of vision. Denies ringing or ears or decreased hearing. Denies drainage from her ears. Denies epistaxis. She denies trouble with speech or swallowing. She denies cardiac or respiratory symptoms other than syncope. She denies nausea, vomiting diarrhea. Denies black or maroon-colored stool. She denies urologic symptoms. Prior similar symptoms: No Recent Illness/Hospitalization: No [facility] Medical History (Updated 05/27/21 @ 11:[address] Derick Valencia MD) Bipolar 1 disorder Depression Diabetes GERD (gastroesophageal reflux disease) HTN (hypertension) Hyperlipemia Home Medications buspirone 10 mg PO DAILY 01/24/16 [History Last Taken 01/05/17] buspirone 20 mg PO QHS 01/24/16 [History Last Taken 01/05/17] calcium phosphate-vitamin D3 [Citracal + D3 Gummies] 2 ea PO DAILY 01/24/16 [History Last Taken 01/05/17] lamotrigine 150 mg PO QHS 01/24/16 [History Last Taken 01/05/17] levothyroxine 150 mcg PO DAILY 01/24/16 [History Last Taken 01/12/17 05:00] cholecalciferol (vitamin D3) [Vitamin D3] 2,400 unit PO DAILY 01/08/17 [History Last Taken Unknown] olanzapine [Zyprexa] 2.5 mg PO DAILY 01/08/17 [History Last Taken Unknown] aspirin 81 mg PO DAILY 07/28/17 [History Last Taken 02/27/18] cranberry 500 mg PO BID 02/24/20 [History Last Taken Unknown] melatonin 3 mg PO QHS 02/24/20 [History Last Taken Unknown] naproxen 500 mg PO BID PRN #20 tab 02/24/20 [Rx Last Taken Unknown] vit,[id number] 1 tab PO DAILY 02/24/20 [History Last Taken Unknown] Crestor 10 mg PO QHS 07/15/20 [History Last Taken Unknown] Desvenlafaxine Succinate ER 50 mg PO DAILY 07/15/20 [History Last Taken Unknown] Losartan Potassium 100 mg PO DAILY 07/15/20 [History Last Taken Unknown] Norvasc 5 mg PO DAILY 07/15/20 [History Last Taken Unknown] Omeprazole 40 mg PO DAILY 07/15/20 [History Last Taken Unknown] Oxybutynin 10 mg PO DAILY 07/15/20 [History Last Taken Unknown] Vit C/Ascorb Sod/Multivit-Min 500 mg PO DAILY 07/15/20 [History Last Taken Unknown] hydrocodone-acetaminophen 1 tab PO Q6H PRN PRN 3 Days #10 tablet 05/27/21 [Rx Last Taken Unknown] phenazopyridine [Pyridium] 200 mg PO TID 3 Days #18 tab 05/27/21 [Rx Last Taken Unknown] Allergy/AdvReac Type Severity Reaction Status Date / Time codeine AdvReac Mild Upset Verified 05/27/21 09:37 Stomach hydroxyzine HCl AdvReac Mild Rash Verified 05/27/21 09:37 [From Vistaril] hydroxyzine pamoate AdvReac Mild Rash Verified 05/27/21 09:37 [From Vistaril] Social History (Updated 05/27/21 @ 10:[address] Derick Valencia MD) household members: none Smoking Status: Never smoker substance use type: does not use ROS ROS ED Constitutional Constitutional ED: Denies chills, fever(s), subjective, sweats or weight loss Eyes Eyes: Denies blurry vision, change in vision or diplopia ENT ENT ED: Denies ear pain, rhinorrhea or sore throat Cardiovascular Cardiovascular: Denies chest pain, orthopnea, palpitations, paroxysmal nocturnal dyspnea or racing heartbeat Respiratory/Chest Respiratory/Chest: Denies cough, dyspnea, dyspnea on exertion, orthopnea or paroxysmal nocturnal dyspnea Gastrointestinal Gastrointestinal: Denies abdominal pain, diarrhea, melena, nausea or vomiting Genitourinary Genitourinary ED: Reports dysuria, urinary frequency and other Details: Patient reports urinary symptoms of started 24 hours ago. ; Denies hematuria Musculoskeletal Musculoskeletal: Reports neck pain; Denies arthralgias, back pain or myalgias Integumentary Denies abscess, Abrasions or rash Neurologic Neurologic: Denies headache(s), paresthesias or weakness Endocrine Endocrinology: Denies polydipsia, polyphagia or polyuria Hematologic/Lymphatic Hematologic/Lymphatic: Denies anemia, easy bleeding or easy bruising EXAM Physical Exam Const Vital Signs: 05/27/21 09:33 05/27/21 10:54 Temperature 97.6 F L Temperature Source Temporal Pulse Rate 76 Respiratory Rate 16 Respiratory Effort Normal Non-Labored Blood Pressure 144/77 H Blood Pressure Mean 99 Pulse Ox 100 Oxygen Delivery Method Room Air Positive well nourished, well developed and obese General Appearance ED: well developed and NAD; Negative for cyanotic, diaphoretic or pallor Nutritional Appearance: obese HEENT Reports TM's clear and moist mucous membranes HEENT Narrative: There is no to hematoma. Is no clinical findings of basilar skull fracture. tenderness; Negative for trauma Tympanic Membrane ED: Yes TM's clear Eyes PERRL and EOMs intact bilaterally Eyes Narrative: There is no subconjunctival hemorrhage noted. General Eye ED: Negative for pale conjunctiva or scleral icterus Neck no lymphadenopathy, supple and no JVD Neck Narrative: There is tenderness paracervical not over the spinous process of the cervical vertebrae. General: tenderness Chest Wall inspection of chest normal and palpation of chest normal Resp normal respiratory effort and clear to auscultation bilaterally Cardio regular rate, regular rhythm, S1 normal heart sound, S2 normal heart sound and no murmurs GI normal to inspection, nondistended, normoactive bowel sounds, non-tender, non- distended and no masses Auscultation: normoactive bowel sounds Palpation: soft Back/Spine no CVA tenderness Cervical Spine: Negative for cervical spine tenderness Thoracic Spine / Upper Back: Negative for thoracic spinal tenderness or paraspinal muscle tenderness Lumbar Spine / Lower Back: Negative for lumbar spinal tenderness Extremity normal to inspection General Extremety ED: Negative for edema or tenderness General Extremity: Negative for edema Neuro oriented x3, CN's II-XII intact bilaterally and no sensory deficits noted Neuro Narrative: No dysmetria. Negative Babinski sign. Sensorium / Orientation: alert Motor Exam: strength 5/5 throughout Psych mental status grossly normal Skin no rashes or lesions noted and no wounds General Skin Exam: Negative for jaundice or pallor MDM MDM MDM Narrative Medical decision making narrative: Patient with syncopal sewed unknown etiology. Will obtain EKG to rule out cardiac dysrhythmia/ischemia. CBC was obtained to assess H&H. Electrolyte panel was obtained to assess anion gap and BUN to creatinine ratio. Orthostatic vital signs were ordered. Laboratory and urinalysis are unremarkable. Patient was discharged to home with prescription for Pyridium for her urinary discomfort. She also was prescribed opium GZ for her paracervical strain. Based on the [place] CT head rule and [place] rule CT of the head is not indicated. Imaging for the neck was not indicated as well. Lab Data Attestation: I reviewed the patient's lab results. Labs: Laboratory Results - last 24 hr 05/27/21 05/27/21 05/27/21 10:05 10:13 10:13 WBC 6.8 RBC 4.58 Hgb 12.7 Hct 39.4 MCV 86.0 MCH 27.7 MCHC 32.2 RDW Std Deviation 41.4 RDW Coeff of Tabby 13.3 Plt Count 240 MPV 9.0 Immature Gran % (Auto) 0.400 Neut % (Auto) 65.6 Lymph % (Auto) 18.1 L [place] % (Auto) 13.7 H Eos % (Auto) 1.8 Baso % (Auto) 0.4 Absolute Neuts (auto) 4.5 Absolute Lymphs (auto) 1.23 Nucleated RBC % 0 Sodium 139 Potassium 4.2 Chloride 105 Carbon Dioxide 29.0 Anion Gap 5 BUN 12 Creatinine 0.79 Estim Creat Clear Calc 38.44 Est GFR (MDRD) Af Amer 91 Est GFR (MDRD) Non-Af 76 BUN/Creatinine Ratio 15.2 Glucose 98 Calcium 9.4 Urine Color STRAW Urine Clarity Clear Urine pH 7.0 Ur Specific [place] 1.005 Urine Protein NEGATIVE Urine Glucose (UA) Normal Urine Ketones Negative Urine Occult Blood NEGATIVE Urine Nitrite NEGATIVE Urine Bilirubin Negative Urine Urobilinogen Normal Ur Leukocyte Esterase NEGATIVE Urine RBC 0 SEEN Urine WBC 0 SEEN Ur Squamous Epith Cells 0 SEEN Urine Bacteria 0 SEEN Urine Mucus 0 SEEN Discharge Plan Triage Chief Complaint: Syncope ED Provider: Derick Valencia Dx/Rx/DC Orders Clinical Impression: Injury due to fall, Near syncope, Acute strain of neck muscle, Dysuria Instructions: Self-Care for Strains and Sprains, ED Dysuria, Uncertain Cause (Adult), ED Near-Fainting, Uncertain Cause Prescriptions: New hydrocodone-acetaminophen [hydrocodone-acetaminophen] 1 TABLET tablet 1 tab PO Q6H PRN PRN (Reason: Pain) 3 Days Qty: 10 RF: 0 phenazopyridine [Pyridium] 100 mg tablet 200 mg PO TID 3 Days Qty: 18 RF: 0 No Action buspirone 5 MG tablet 20 mg PO QHS RF: 0 buspirone 5 MG tablet 10 mg PO DAILY RF: 0 lamotrigine 150 MG tablet 150 mg PO QHS RF: 0 levothyroxine 125 MCG tablet 150 mcg PO DAILY RF: 0 calcium phosphate-vitamin D3 [Citracal-D3 Gummies] 1 EACH tablet,chewable 2 ea PO DAILY RF: 0 olanzapine [Zyprexa] 2.5 MG tablet 2.5 mg PO DAILY RF: 0 cholecalciferol (vitamin D3) [Vitamin D3] 1,000 UNIT capsule 2,400 unit PO DAILY RF: 0 aspirin 325 MG tablet,delayed release (DR/EC) 81 mg PO DAILY RF: 0 melatonin 3 MG tablet 3 mg PO QHS RF: 0 cranberry 500 MG capsule 500 mg PO BID RF: 0 vit,[id number]-ddfnt 1 TABLET tablet 1 tab PO DAILY RF: 0 naproxen 500 MG tablet 500 mg PO BID PRN Qty: 20 RF: 0 Desvenlafaxine Succinate ER tablet 50 mg PO DAILY RF: 0 Omeprazole capsule 40 mg PO DAILY RF: 0 Crestor tablet 10 mg PO QHS RF: 0 Losartan Potassium tablet 100 mg PO DAILY RF: 0 Vit C/Ascorb Sod/Multivit-Min tablet 500 mg PO DAILY RF: 0 Oxybutynin tablet 10 mg PO DAILY RF: 0 Norvasc tablet 5 mg PO DAILY RF: 0 Primary Care Provider: Octavia Nichols Referrals: Octavia Nichols, DO [Primary Care Provider] - 3-5 Days if not improving
[2021-05-27 10:40] LABS: Anion Gap 5 (5-15); BUN 12 mg/dL (7-18); BUN/Creat Ratio 15.2 RATIO (10-20); Calcium,Total 9.4 mg/dL (8.5-10.1); Chloride 105 mmol/L (98-107); Creatinine, Serum 0.79 mg/dL (0.55-1.02); EST Glomerular Filtration Rate 76 mL/min (>60); Est Glom Filt Rate - Afr Amer 91 mL/min (>60); Estimated Creatinine Clearance 38.44 ml/min; Glucose 98 mg/dL (74-106); Potassium 4.2 mmol/L (3.5-5.1); Sodium Level 139 mmol/L (136-145)
[2021-05-27] MEDS: HYDROcodone Bitartrate/Apap 5/325 Tablet PO (11:09)
[2021-05-27 12:02] VITALS: BP 116/72; PULSE 71; RESP 18; O2SAT 98
== END 2021-05-27 12:02 | disposition home or self-care (01) ==
PROVIDERS: Emergency Provider Emergency Medicine; PCP Internal Medicine; Visit Provider Emergency Medicine
DX: S16.1XXA Strain of muscle, fascia and tendon at neck level, initial encounter (principal); R55 Syncope and collapse; E66.9 Obesity, unspecified; W19.XXXA Unspecified fall, initial encounter
CPT/HCPCS: 80048; 81001; 85025; 93005; 99285; A4216

== ENCOUNTER 2021-06-18 07:42 | Outpatient (CLI) | payer MEDICARE, MEDICAID, SELFPAY ==
--- NOTE | 2021-06-18 07:45 | CT_ITS ---
STUDY: CT BRAIN WITHOUT CONTRAST REASON FOR EXAM: Female, 76 years old. Headaches following a recent fall. RADIATION DOSAGE (If Supplied By Facility): CTDIvol = ( 44.99 ) mGy, DLP = ( 829.85 ) mGycm TECHNIQUE: Transaxial CT imaging of the brain was performed without administration of intravenous contrast material. Individualized dose optimization techniques were used for this CT. COMPARISON: Comparison is made with prior examination dated 08/23/2020. FINDINGS: Normal soft tissue structures. Normal calvarium. There is mild cerebral atrophy with widening of the extra-axial spaces and ventricular dilatation. There are areas of decreased attenuation within the white matter tracts of the supratentorial brain, consistent with microvascular disease changes. There are small punctate calcifications of the basal ganglia which are seen in the aging brain as a normal variant. Normal brainstem. Normal cerebellum. There is no intracranial hemorrhage. There are no findings of an acute ischemic infarction. Atherosclerotic calcification of the cavernous portions of the internal carotid arteries bilaterally. Normal visualized paranasal sinuses. CT/Brain/Head without Contrast IMPRESSION: Chronic involutional changes of the brain. Electronically Signed: Suleman Chan MD at 8:23 EST ,
== END 2021-06-18 23:59 | disposition short-term general hospital (02) ==
LOC: CT 07:44
PROVIDERS: PCP Internal Medicine; Referring Provider Internal Medicine; Visit Provider Internal Medicine
DX: R51.9 Headache, unspecified (principal)
CPT/HCPCS: 70450

== ENCOUNTER 2021-06-26 12:54 | Outpatient (CLI) | payer MEDICARE, MEDICAID, SELFPAY ==
--- NOTE | 2021-06-26 12:59 | VDLE_ITS ---
Reason For Study: Pain RIGHT LEFT CFV is compressible, spontaneous, phasic, GSV is normal. competent and demonstrates normal CFV is compressible, spontaneous, phasic, augmentation. competent, and demonstrates normal Procedure augmentation. This is a venous duplex using B-mode, color FV is compressible, spontaneous, phasic, flow and spectral Doppler. competent and demonstrates normal Exam performed in department. augmentation. A preliminary report was called and/or faxed POP V is compressible, spontaneous, phasic, to Simone. competent and demonstrates normal augmentation. T/P Trunk is compressible. PTV is compressible. LT PerV is compressible. Nonvascularized structure noted in the leftt popliteal fossa measuring approximently 1.50 x 1.58 cm. VL/Venous Duplex US, Unilateral Interpretation Summary Deep veins of the left lower extremity are patent and compressible segmentally. There is no evidence of left lower extremity deep vein thrombosis. Valvular competence appears intac t within the proximal deep venous system on the left . The left great saphenous vein appears patent a nd compressible segmentally. A non-vascular structure is noted in the left popliteal space, twila suring 1.50 cm x 1.58 cm. This may represent a popliteal cyst. Clinical correlation is advised. Ordering Physician: Octavia Nichols Referring Physician: Octavia Nichols Performed By: Miley Foote RVT
--- NOTE | 2021-06-26 13:25 | RAD_ITS ---
STUDY: X-RAY - LEFT KNEE REASON FOR EXAM: Acute left knee pain, no specific injury. TECHNIQUE: 2 view(s) of the knee. COMPARISON: Radiographs 01/05/2017. FINDINGS: Normal visualized distal femur. Normal visualized proximal tibia and fibula. Normal proximal tibiofibular articulation. There is moderate joint space narrowing of the medial femorotibial compartment, increased since the prior study. Normal lateral femorotibial compartment. There is mild joint space narrowing of the patellofemoral articulation similar to the prior study. There is a small joint effusion. There is chondrocalcinosis. There are faint calcifications at the posterior aspect of the knee as on the prior study, likely intra-articular bodies in a popliteal cyst. RAD/Knee 1 or 2 Views IMPRESSION: Arthrosis of the medial femorotibial and patellofemoral compartments. Small joint effusion. Suspected intra-articular bodies in a popliteal cyst. Chondrocalcinosis. Electronically Signed: Johnny Mistry MD at 14:29 EST ,
== END 2021-06-26 23:59 | disposition home or self-care (01) ==
PROVIDERS: PCP Internal Medicine; Referring Provider Internal Medicine; Visit Provider Internal Medicine
DX: M25.562 Pain in left knee (principal); M79.605 Pain in left leg
CPT/HCPCS: 73560; 93971

== ENCOUNTER 2021-09-29 14:00 | Outpatient (RCR) | payer MEDICARE, MEDICAID, SELFPAY ==
--- NOTE | 2021-07-29 15:15 | HP.PTEVAL ---
Patient's Visit Information JOSELUIS HUI is a 76 year old F referred to Physical Therapy by Dr. Octavia Nichols DO with a diagnosis of B knee pain. Date of Evaluation: 07/29/21 Physical Therapist: Jose Contreras, PT, ATC - Visit Plan Frequency: 2-3x /Week Duration: 4-6 Weeks Plan: B LE strengthening, balance and proprio, core stab ex's, gait training, nustep, and HEP - Subjective Pt reports she has had B knee and LE weakness for the past 4 weeks. Pt reports the pain had an insidious onset in nature. Pt reports she took IBUprophen for her pain which eventually dissolved after 3-4 days. Pt reports she then went to her Dr. and received and x-ray which revealed fluid and OA. Pt reports she was then ordered to come to PT in order to strengthen her knees and to decrease her pain. No PMHx of significant knee pain prior to this episode. Pt reports no tingling or numbness at this time. Pt reports she doesn't have sleep difficulty at this time secondary to knee pain. Pt reports she has a lot of difficulty with car transfers and stair negotiation at his time secondary to pain and weakness. Pt reports she used to go on walks, but cant now at this time secondary to LE weakness. 0/10 pain currently while at rest, 6/10 pain at worst (with prolonged ambulation) - Pain B knees Pain Intensity (Out of 10): 0 Pain Intensity Range: 6 - Objective Neuro: B LE sensation is WNL to light touch. B patellar reflex= 1/3. MMT: L knee flex= 9, ext= 19; R knee flex= 21, ext= 25. ROM: R knee 0-5-130, L knee 0-10-120. Gait: Pt is able to ambulate 140 feet until needing to rest secondary to fatigue - Balance/Special Test Scores Lower Extremity Functional Score: 24 - Goals Goal 1:: Decrease B knee pain x 50% to aid with ambulation Goal Time Frame: 4-6 Weeks Goal 2:: Increase L LE strength x 5-10#F to aid with stair negotiation Goal Time Frame: 4-6 Weeks Goal 3:: Increase L knee ROM x 5-10 degrees to aid with IADL's Goal Time Frame: 4-6 Weeks Goal 4:: I with HEP Goal Time Frame: 4-6 Weeks - Rehabilitation Potential Physical Therapy Diagnosis: Pt has B knee pain, weakness, and limited ROM secondary to B knee OA Rehabilitation Potential: Good - Anticipated Interventions Patient/Client Instruction: Educate patient on: Condition, Plan of Care For the Purpose of:: To improve self management Therapeutic Exercise to Include: Strength training, Endurance training, Balance training, Gait and locomotor training, Active ROM, Dynamic Lumbar Stabilization For the Purpose of:: To decrease pain, To increase ROM, To improve muscle performance and motor function Thank you for the opportunity to evaluate your patient. For Medicare and Medicare HMO plans, please review the plan of care and approve it. It will need to be FAXED BACK to us at [phone] for Medicare purposes. For Medicare only, by signing this I certify the plan of care. Please let me know if there are questions or concerns regarding this plan of care. Physician Signature: Date:
--- NOTE | 2021-09-29 14:38 | HP.PTREVAL ---
Dr. Octavia Nichols, DO, It has been my pleasure to treat JOSELUIS HUI over the last 12 visits for B knee pain. Please see the progress note below for an update on the physical therapy plan of care! Subjective: I really have a hard time walking up inclines at this time. My pain is getting better Objective/Function: B knee pain ranges from 0-3/10. MMT: L knee flex= 14, ext= 16. L knee ROM: 0-5-120. Gait: Pt is now able to ambulate 340' with no AD and CGAx1 until feeling fatigued. Pt has made sig bhatti towards Rx goals but still demonstrates the need for skilled therapy for LE strengthening and improved ambulatory tolerance for IADL's Plan Plan: attempt to get 12 more visits to focus on tolerance for ambulation and L LE strengthening Balance/Gait/Functional tests - Balance/Special Test Scores Lower Extremity Functional Score: 45 Goals Goal 1:: Decrease B knee pain x 50% to aid with ambulation Goal Time Frame: 4-6 Weeks Goal Progress: Goal Met Goal 2:: Increase L LE strength x 5-10#F to aid with stair negotiation Goal Time Frame: 4-6 Weeks Goal Progress: Progressing Goal 3:: Increase L knee ROM x 5-10 degrees to aid with IADL's Goal Time Frame: 4-6 Weeks Goal Progress: Progressing Goal 4:: I with HEP Goal Time Frame: 4-6 Weeks Goal Progress: Goal Met Goal 5:: Pt will be able to ambulate greater than 600 feet with no AD to aid with IADL's Goal Time Frame: 4-6 Weeks Goal Progress: New goal Anticipated Interventions Patient/Client Instruction: Educate patient on: Condition, Plan of Care For the Purpose of:: To improve self management Therapeutic Exercise to Include: Strength training, Endurance training, Balance training, Gait and locomotor training, Active ROM, Dynamic Lumbar Stabilization For the Purpose of:: To decrease pain, To increase ROM, To improve muscle performance and motor function Please do not hesitate to contact me at [phone] by phone or if you have questions or concerns regarding this new plan of care! Sincerely, Jose Contreras, PT, ATC
--- NOTE | 2021-11-12 07:37 | HP.PTDCNRP_ITS ---
JOSELUIS HUI was seen in my office for initial evaluation on 07/29/21. The following Plan of Care was established for this patient: Initial Frequency: 2-3x /Week Initial Duration: 4-6 Weeks Patient/Client Instruction: Educate patient on: Condition, Plan of Care For the Purpose of:: To improve self management Therapeutic Exercise to Include: Strength training, Endurance training, Balance training, Gait and locomotor training, Active ROM, Dynamic Lumbar Stabilization For the Purpose of:: To decrease pain, To increase ROM, To improve muscle performance and motor function This patient was last seen in our office . Pertinent comments regarding their Physical therapy will appear below: Pt was treated for 12 PT visits for LBP through the date of 09/29/21. Pt has not returned through todays date, and is discontinued at this time. At this point I will be discontinuing this patient from physical therapy. I would be happy to see this patient again in the future if found appropriate by t he physician. Thank you! Jose Contreras, PT, ATC Balance/Gait/Functional tests - Balance/Special Test Scores Lower Extremity Functional Score: 45
== END 2021-09-29 19:00 | disposition home or self-care (01) ==
LOC: PT 14:00
PROVIDERS: PCP Internal Medicine; Referring Provider Internal Medicine; Visit Provider Internal Medicine
DX: M25.561 Pain in right knee (principal); M25.562 Pain in left knee; M62.81 Muscle weakness (generalized)
CPT/HCPCS: 97110; 97161; 97164

== ENCOUNTER → 2021-12-31 | Outpatient (CLI) | payer MEDICARE, MEDICAID, SELFPAY ==
--- NOTE | 2021-12-31 08:50 | BI_ITS ---
MAMMOGRAPHY - BILATERAL SCREENING 3-D TOMOSYNTHESIS REASON FOR EXAM: Female, 76 years old. SCREENING PERTINENT HISTORY: No significant family history. TECHNIQUE: 2-D mammograms and 3-D Tomosynthesis of the breast (s) were performed. CAD was performed. COMPARISON: 12/27/2020 FINDINGS: The breast composition is composed of scattered fibroglandular density. Scattered benign calcifications are seen. No dense spiculated masses or suspicious microcalcifications are identified. No architectural distortion is identified. There is no skin thickening or retraction. No change in bilateral benign rodlike calcifications. BI/SCRN MAMM (CAD)W/JAVIER BILAT IMPRESSION: No mammographic signs of malignancy. Routine yearly mammograms recommended. ASSESSMENT CATEGORY: BIRADS Category 2: Benign. A letter regarding these results will be sent to the patient by the facility within 30 days. FOLLOW UP RECOMMENDATION: Yearly follow up mammogram recommended. (A) Approximately 10% of breast cancers are not detected by mammography. A normal mammogram should not delay biopsy of a clinically suspicious abnormality. Electronically Signed: Sd Cade MD at 9:49 EDT ,
== END | disposition home or self-care (01) ==
LOC: OPBI 08:48
PROVIDERS: PCP Internal Medicine; Visit Provider Internal Medicine
DX: Z12.31 Encounter for screening mammogram for malignant neoplasm of breast (principal)
CPT/HCPCS: 77063; 77067

== ENCOUNTER 2022-04-01 10:30 | Outpatient (RCR) | payer MEDICARE, MEDICAID, SELFPAY ==
--- NOTE | 2022-02-05 15:13 | HP.PTEVAL ---
Patient's Visit Information JOSELUIS HUI is a 77 year old F referred to Physical Therapy by GEETA Valencia with a diagnosis of HIP PAIN. Date of Evaluation: 02/05/22 Physical Therapist: Samy Johnson, PT, Cert MDT, OCS - Visit Plan Frequency: 2x /Week Duration: 4 Weeks Plan: PT INTERVENTIONS RLE STRENGTHENING ESPECIALLY HIP ,DLS ,FUNCTIONAL STRENGTHENING AND POSTURAL EX'S - Subjective This 77 y/o female presents to physical therapy with hip pain. Patient fell ~ 2weeks mechanical fall on side walk. Patient developed knee and hip pain and noticed some swelling . Patient has nurse at home recommended to see MD. Patient did not have any diagnostics ,prescribed muscle relaxer and pain medication. Patient pain has pain lateral hip and groin and knee . Patient had THR right side 2002 ,2005 left .Since patient has fallen has been using cane. Patient denies paresthesia/tingling. Bowel/bladder-. Patient sleeping okay. Aggravating lifting ,stairs and extended walking and standing. Alleviating factors ice. Patient has received PT for neck and balance /strengthening. Patient condition affects QOL and function,. SOCIAL: single. VOCATION: retired - Objective POSTURE: mild forward posture mild/mod thoracic kyphosis ,bilateral knee valgus. LEG LENGTH: 1/2 shorter left. GAIT: reciprocal pattern with cane mild forward posture knee valgus. PALAPTION: tender LS. AROM: hip flexion 100 degrees ,hip abduction 35 degrees ,IR/ER NT. MMT: quads/hams 4/5 ,(peak force) hip flexion 12.7, hip abduction 10.2. LUMBAR ROM: flexion mod loss ,extension mod loss ,side glides min loss - Special Tests L/S Slump test left side: Negative L/S Slump test right side: Negative L/S Left Straight Leg Raise: Negative L/S Right Straight Leg Raise: Negative Lumbar Standing: Flexion - Mechanical Response: No effect Lumbar Standing: Flexion - Symptoms During Testing: No effect Lumbar Standing: Flexion - Symptoms After Testing: No effect Lumbar Standing: Extension - Mechanical Response: No effect Lumbar Standing: Extension - Symptoms During Testing: No effect Lumbar Standing: Extension - Symptoms After Testing: No effect Lumbar Standing: Right Side Glides - Mechanical Response: No effect Lumbar Standing: Right Side [place] - Symptoms During Testing: No effect Lumbar Standing: Right Side [place] - Symptoms After Testing: No effect Lumbar Standing: Left Side [place] - Mechanical Response: No effect Lumbar Standing: Left Side [place] - Symptoms During Testing: No effect Lumbar Standing: Left Side [place] - Symptoms After Testing: No effect R Hip Trendelenberg - Glut Medius: Negative - Balance/Special Test Scores Lower Extremity Functional Score: 30 - Goals Goal 1:: Patient to be I with HEP for hip Goal Time Frame: 4-6 Weeks Goal 2:: Patient to improve gait with no device 80% of the time. Goal Time Frame: 4-6 Weeks Goal 3:: Patient to demonstrate 50% improvement with decrease pain and improved function with gait/ADLS' Goal Time Frame: 4-6 Weeks Goal 4:: Patient to improve peak force hip by 5-10 to improve gait and function Goal Time Frame: 4-6 Weeks Goal 5:: Patient to improve LFES score by 5 points to improve QOL and function. Goal Time Frame: 4-6 Weeks - Rehabilitation Potential Physical Therapy Diagnosis: Patient has right LS and hip pain with weakness in hip ,decrease gait and needs cane for gait thus benefit from skilled PT Rehabilitation Potential: Good - Anticipated Interventions Patient/Client Instruction: Educate patient on: Condition, Plan of Care For the Purpose of:: To decrease pain, To increase ROM, To improve muscle performance and motor function, To improve ability to perform ADL's, To increase tolerance to activity/condition/position, To improve ability of physical actions for home/community/work/leisure, To improve gait and locomotor functions, To increase flexibility/ROM, To improve endurance, To improve balance, To reduce risk of recurrence Therapeutic Exercise to Include: Strength training, Endurance training, Balance training, Postural training, Flexibilty training, Dynamic Lumbar Stabilization Comment: HIP For the Purpose of:: To decrease pain, To improve muscle performance and motor function, To improve ability to perform ADL's, To increase tolerance to activity/condition/position, To improve performance and independence with ADL's, To improve ability of physical actions for home/community/work/leisure, To improve gait and locomotor functions, To increase flexibility/ROM, To improve endurance, To improve balance, To reduce risk of recurrence, To improve safety, To prevent re-injury, To improve tolerance to ADL's Thank you for the opportunity to evaluate your patient. For Medicare and Medicare HMO plans, please review the plan of care and approve it. It will need to be FAXED BACK to us at [phone] for Medicare purposes. For Medicare only, by signing this I certify the plan of care. Please let me know if there are questions or concerns regarding this plan of care. Physician Signature: Date:
--- NOTE | 2022-05-13 08:56 | HP.PTDCSUM ---
It has been my pleasure to treat JOSELUIS HUI referred by Mary Mendenhall NP-C, with the diagnosis of HIP PAIN for a total of 9 visit(s). Discharge Date: 05/13/22 Please see the following information for a summary of their discharge status. Subjective: Walking is better.. Plan to have 5th toe % Improvement: 60 Objective/Function: OSTURE: mild forward posture. GAIT: ambulates with straight cane mild forward posture reciprocal pattern. SYMMTRIES: leg length but uses heel lift. MMT: 4/5 QUADS/HAMS peak force hip flexion 12.6 ,hip abd 10.6 Goal 1:: Patient to be I with HEP for hip Goal Progress: Progressing Goal 2:: Patient to improve gait with no device 80% of the time. Goal Progress: Goal Met Goal 3:: Patient to demonstrate 50% improvement with decrease pain and improved function with gait/ADLS' Goal Progress: Goal Met Goal 4:: Patient to improve peak force hip by 5-10 to improve gait and function Goal Progress: Goal Met Goal 5:: Patient to improve LFES score by 5 points to improve QOL and function. Goal Progress: Goal Met Plan: D/C Discharge Comments: hep If there are questions or concerns regarding this patient's physical therapy, please feel free to call me at [phone]. Thank you for the referral of this patient. Sincerely, Samy Johnson, PT, Cert MDT, OCS Balance/Gait/Functional tests - Balance/Special Test Scores Lower Extremity Functional Score: 45
== END 2022-04-01 19:00 | disposition home or self-care (01) ==
LOC: PT 10:30
PROVIDERS: PCP Internal Medicine; Referring Provider Nurse Practitioner Family; Visit Provider Nurse Practitioner Family
DX: M25.559 Pain in unspecified hip (principal)
CPT/HCPCS: 97110; 97162; 97530

== ENCOUNTER 2022-04-09 06:20 | Emergency (ER) | payer MEDICARE, MEDICAID, SELFPAY ==
[2022-04-09 06:22] VITALS: BP 141/78; PULSE 83; RESP 18; TEMP 36.8; O2SAT 97; BMI 31.6
[2022-04-09 06:25] VITALS: BP 141/78; PULSE 83; RESP 18; TEMP 36.8; O2SAT 97
[2022-04-09 06:26] VITALS: O2SAT 97
--- NOTE | 2022-04-09 06:34 | EX.ED.VIS.UR ---
HPI HPI - URI History of Present Illness Chief Complaint: Cough Detail of Chief Complaint: Cough that started today Informant: patient Narrative Narrative: Patient presents to the emergency department complaint of a cough that started today. Patient states that she initially started with little bit of a runny nose yesterday. She denies fever. She denies chest pain. She denies shortness of breath. Patient denies sick contacts. Patient has had her COVID-vaccine and booster and has had her influenza vaccine. Patient has been visiting her here in the hospital who is ill with atrial fibrillation and a blood infection. ROS ROS ED Review of Systems ROS Unobtainable: other Constitutional Constitutional ED: Reports lethargy; Denies chills, fever(s), sweats or weight loss Eyes Eyes: Denies blurry vision, change in vision or diplopia ENT ENT ED: Reports rhinorrhea; Denies sore throat Cardiovascular Cardiovascular: Denies chest pain, orthopnea or racing heartbeat Respiratory/Chest Respiratory/Chest: Reports cough; Denies dyspnea, dyspnea on exertion, orthopnea or sputum Gastrointestinal Gastrointestinal: Denies abdominal pain, diarrhea, nausea or vomiting Genitourinary Genitourinary ED: Denies dysuria, hematuria or urinary frequency Musculoskeletal Musculoskeletal: Denies arthralgias, back pain, myalgias or neck pain Integumentary Denies abscess, Abrasions or rash Neurologic Neurologic: Denies headache(s) or weakness Psychiatric Psychiatric: Denies anxiety, depression or suicidal thoughts Endocrine Endocrinology: Denies polydipsia, polyphagia or polyuria Hematologic/Lymphatic Hematologic/Lymphatic: Denies easy bleeding, easy bruising or lymphadenopathy Allergic/Immunologic Allergic/Immunologic ED: Denies mouth swelling, tongue swelling or urticaria [facility] Medical History (Updated 04/09/22 @ 07:[address] Susie Maki, ) Bipolar 1 disorder Depression Diabetes GERD (gastroesophageal reflux disease) HTN (hypertension) Hyperlipemia Home Medications buspirone 5 mg tablet 20 mg PO QHS 01/24/16 [History Last Taken 01/05/17] calcium phosphate 250 mg-vit D3 12.5 mcg (500 unit) chewable tablet (Citracal-D3 Gummies) 2 ea PO DAILY 01/24/16 [History Last Taken 01/05/17] lamotrigine 150 mg tablet 150 mg PO DAILY 09/09/16 [History Last Taken 01/05/17] levothyroxine 125 mcg tablet 150 mcg PO DAILY 01/24/16 [History Last Taken 01/12/17 05:00] cholecalciferol (vitamin D3) 25 mcg (1,000 unit) capsule (Vitamin D3) 2,400 unit PO DAILY 01/08/17 [History Last Taken Unknown] olanzapine 2.5 mg tablet (Zyprexa) 2.5 mg PO DAILY 01/08/17 [History Last Taken Unknown] cranberry 500 mg capsule 500 mg PO BID 02/24/20 [History Last Taken Unknown] melatonin 3 mg tablet 3 mg PO QHS 02/24/20 [History Last Taken Unknown] naproxen 500 mg tablet 500 mg PO BID PRN #20 tabs 02/24/20 [Rx Last Taken Unknown] vits,calcium no.78-iron fumarate-folic acid 29 mg-1 mg tablet 1 tab PO DAILY 02/24/20 [History Last Taken Unknown] Crestor 10 mg PO QHS 07/15/20 [History Last Taken Unknown] Desvenlafaxine Succinate ER 50 mg PO DAILY 07/15/20 [History Last Taken Unknown] Losartan Potassium 100 mg PO DAILY 07/15/20 [History Last Taken Unknown] Norvasc 5 mg PO DAILY 07/15/20 [History Last Taken Unknown] Omeprazole 40 mg PO DAILY 07/15/20 [History Last Taken Unknown] Vit C/Ascorb Sod/Multivit-Min 500 mg PO DAILY 07/15/20 [History Last Taken Unknown] hydrocodone-acetaminophen 5-325mg 5mg-325mg 1 tab PO Q6H PRN PRN Pain 3 days #10 TABLETS 05/27/21 [Rx Last Taken Unknown] amlodipine 5 mg PO/SL DAILY 08/29/21 [History Last Taken Unknown] aspirin 81 mg PO/SL DAILY 08/29/21 [History Last Taken Unknown] Gemtesa 75 mg PO/SL DAILY 03/13/22 [History Last Taken Unknown] meloxicam 3.75 mg PO/SL BID 03/13/22 [History Last Taken Unknown] benzonatate 200 mg capsule 200 mg PO TID PRN cough #20 caps 04/09/22 [Rx Last Taken Unknown] Allergy/AdvReac Type Severity Reaction Status Date / Time codeine AdvReac Mild Upset Verified 05/27/21 09:37 Stomach hydroxyzine HCl AdvReac Mild Rash Verified 05/27/21 09:37 [From Vistaril] hydroxyzine pamoate AdvReac Mild Rash Verified 05/27/21 09:37 [From Vistaril] Social History (Updated 05/27/21 @ 10:[address] Derick Valencia MD) household members: none Smoking Status: Never smoker substance use type: does not use EXAM Physical Exam Const Vital Signs: 04/09/22 06:22 04/09/22 06:25 04/09/22 06:26 Temperature 98.2 F 98.2 F Temperature Source Temporal Temporal Pulse Rate 83 83 Respiratory Rate 18 18 Respiratory Effort Short of Breath Respiratory Depth Normal Respiratory Pattern Normal Blood Pressure 141/78 H 141/78 H Blood Pressure Mean 99 99 Pulse Ox 97 97 Oxygen Delivery Method Room Air Room Air Room Air Positive well nourished and well developed General Appearance ED: well developed and NAD HEENT Reports TM's clear and moist mucous membranes normocephalic and atraumatic; Negative for trauma or tenderness Tympanic Membrane ED: Yes TM's clear Eyes PERRL and EOMs intact bilaterally General Eye ED: Negative for pale conjunctiva or scleral icterus Neck no lymphadenopathy, supple and no JVD General: Negative for tenderness Chest Wall inspection of chest normal and palpation of chest normal Chest: Negative for tenderness Resp normal respiratory effort and clear to auscultation bilaterally Effort and Inspection: Negative for respiratory distress or pain with movement Auscultation: Negative for rhonchi, wheezes or diminished lung sounds Cardio regular rate, regular rhythm, S1 normal heart sound, S2 normal heart sound and no murmurs Peripheral Pulses: pulses 2+ throughout GI normal to inspection, nondistended, normoactive bowel sounds, soft to palpation, non-tender, non-distended and no masses Back/Spine no CVA tenderness and no thoracic nor lumbar tenderness Extremity normal to inspection General Extremety ED: Negative for edema General Extremity: Negative for edema Neuro oriented x3, CN's II-XII intact bilaterally, no sensory deficits noted and gait normal Sensorium / Orientation: awake, alert, oriented to person, oriented to place and oriented to time Motor Exam: strength 5/5 throughout and strength abnormal Psych mental status grossly normal Skin no rashes or lesions noted and no wounds MDM MDM MDM Narrative Medical decision making narrative: Patient had a negative rapid COVID and negative rapid influenza. She was given a Tessalon Perle. Patient will be given a prescription for Tessalon Perles. I do not feel any imaging is indicated. I suspect likely viral upper respiratory infection. Patient to return if increasing shortness of breath. She is to follow-up with her primary care physician within next 5 to 7 days. Discharge Plan Triage Chief Complaint: Cough ED Provider: Susie Maki Dx/Rx/DC Orders Clinical Impression: Viral URI Instructions: ED URI, Viral, No Abx (Adult) Prescriptions: New benzonatate 200 mg capsule 200 mg PO TID PRN (Reason: cough) Qty: 20 0RF No Action buspirone 5 MG tablet 20 mg PO QHS lamotrigine 150 MG tablet 150 mg PO DAILY levothyroxine 125 MCG tablet 150 mcg PO DAILY calcium phosphate-vitamin D3 [Citracal-D3 Gummies] 1 EACH tablet,chewable 2 ea PO DAILY olanzapine [Zyprexa] 2.5 MG tablet 2.5 mg PO DAILY cholecalciferol (vitamin D3) [Vitamin D3] 1,000 UNIT capsule 2,400 unit PO DAILY melatonin 3 MG tablet 3 mg PO QHS cranberry 500 MG capsule 500 mg PO BID vit,[id number] 1 TABLET tablet 1 tab PO DAILY naproxen 500 MG tablet 500 mg PO BID PRN Qty: 20 0RF Desvenlafaxine Succinate ER tablet 50 mg PO DAILY Omeprazole capsule 40 mg PO DAILY Crestor tablet 10 mg PO QHS Losartan Potassium tablet 100 mg PO DAILY Vit C/Ascorb Sod/Multivit-Min tablet 500 mg PO DAILY Norvasc tablet 5 mg PO DAILY amlodipine 5 mg tablet 5 mg PO/SL DAILY aspirin 81 mg tablet 81 mg PO/SL DAILY meloxicam 3.75 mg tablet 3.75 mg PO/SL BID Gemtesa 75 mg tablet 75 mg PO/SL DAILY hydrocodone-acetaminophen [hydrocodone-acetaminophen] 1 TABLET tablet 1 tab PO Q6H PRN PRN (Reason: Pain) 3 Days Qty: 10 0RF Primary Care Provider: Octavia Nichols Referrals: Octavia Nichols DO [Primary Care Provider] - 5-7 Days Disposition Disposition: Home, Self Care
[2022-04-09] MEDS: Benzonatate 100 MG Capsule 200 MG PO (06:42)
== END 2022-04-09 07:55 | disposition home or self-care (01) ==
PROVIDERS: Emergency Provider Emergency Medicine; PCP Internal Medicine; Visit Provider Emergency Medicine
DX: J06.9 Acute upper respiratory infection, unspecified (principal); E11.9 Type 2 diabetes mellitus without complications; Z20.822 Contact with and (suspected) exposure to COVID-19; I10 Essential (primary) hypertension; E78.5 Hyperlipidemia, unspecified; K21.9 Gastro-esophageal reflux disease without esophagitis; Z79.82 Long term (current) use of aspirin; Z79.899 Other long term (current) drug therapy
CPT/HCPCS: 87428; 99283

== ENCOUNTER → 2022-10-22 | Outpatient (CLI) | payer MEDICARE, MEDICAID, SELFPAY ==
--- NOTE | 2022-10-22 08:48 | US_ITS ---
STUDY: ABDOMINAL ULTRASOUND - RIGHT UPPER QUADRANT; ELASTOGRAPHY REASON FOR VISIT: Female, 77 years old. Fatty infiltration of the liver. TECHNIQUE: Ultrasound evaluation of the right upper quadrant was performed with real-time and static loja-scale imaging. Point quantification shear wave elastography was performed (enavu). TECHNICAL QUALITY: Adequate. COMPARISON: None. FINDINGS: Liver: The liver measures 15.0 cm. There is increased echogenicity consistent with fatty infiltration. The bile ducts are within normal limits. There is hepatic color flow. The direction of portal flow is hepatopetal. There is no demonstrated mass lesion. Median liver stiffness measured 10.1 kPa. Gallbladder: Normal distended gallbladder. The gallbladder wall measures 2.0 mm. There is a negative sonographic Neff''s sign. There is no pericholecystic fluid. There are no gallstones. Common Bile Duct (C.B.D.): The common bile duct measures 4.0 mm. Pancreas: There is normal echogenicity of the visualized pancreas. There is no demonstrated pancreatic mass or cyst. Right Kidney: Normal size of the right kidney. The right kidney measures 11.1 cm x 5.1 cm x 4.2 cm. Normal renal cortex. The right cortex measures 1.9 cm. There is a 2 cm x 2 cm x 1.6 I''m is cystic in the lower pole of the right kidney. There is no right hydronephrosis. US/ABD Limited w/ Elastography IMPRESSION: 1. Liver stiffness measures 10.1 kPa compatible with F2-F3 (Mild to moderate liver fibrosis) Metavir score. Electronically Signed: Suleman Chan MD at 8:26 EDT ,
== END | disposition home or self-care (01) ==
PROVIDERS: PCP Internal Medicine; Referring Provider Internal Medicine; Visit Provider Internal Medicine
DX: K76.0 Fatty (change of) liver, not elsewhere classified (principal)
CPT/HCPCS: 76705; 76981

== ENCOUNTER 2022-12-13 17:06 | Observation (INO) | payer MEDICARE, MEDICAID, SELFPAY ==
[2022-12-13 17:08] VITALS: BP 120/64; PULSE 89; RESP 18; TEMP 36.8; O2SAT 96
[2022-12-13 17:11] VITALS: BMI 40.6
--- NOTE | 2022-12-13 17:19 | EDS_ITS ---
HPI History of Present Illness Chief Complaint: Confusion [facility] Medical History (Updated 12/13/22 @ 23:[address] Fish Jerez, DO) Anxiety and depression Bipolar 1 disorder GERD (gastroesophageal reflux disease) History of small bowel obstruction HTN (hypertension) Hyperlipemia Morbid obesity Type II diabetes mellitus Home Medications calcium phosphate 250 mg-vit D3 12.5 mcg (500 unit) chewable tablet (Citracal-D3 Gummies) 2 ea PO DAILY 01/24/16 [History Last Taken 12/13/22 09:00] lamotrigine 150 mg tablet 150 mg PO DAILY 01/24/16 [History Last Taken 12/12/22 21:00] cholecalciferol (vitamin D3) 25 mcg (1,000 unit) capsule (Vitamin D3) 2,000 unit PO DAILY 01/08/17 [History Last Taken 12/13/22 09:00] olanzapine 2.5 mg tablet (Zyprexa) 2.5 mg PO QHS 01/08/17 [History Last Taken 12/12/22] cranberry 500 mg capsule 500 mg PO BID 02/24/20 [History Last Taken 12/12/22 09:00] vits,calcium no.78-iron fumarate-folic acid 29 mg-1 mg tablet 1 tab PO DAILY 02/24/20 [History Last Taken 12/13/22 09:00] Crestor 10 mg PO QHS 07/15/20 [History Last Taken 12/12/22] Desvenlafaxine Succinate ER 50 mg PO DAILY 07/15/20 [History Last Taken 12/13/22 09:00] Losartan Potassium 100 mg PO DAILY 07/15/20 [History Last Taken 12/13/22 09:00] Omeprazole 40 mg PO DAILY 07/15/20 [History Last Taken 12/13/22 09:00] Vit C/Ascorb Sod/Multivit-Min 500 mg PO DAILY 07/15/20 [History Last Taken 12/13/22 09:00] amlodipine 5 mg PO/SL DAILY 08/29/21 [History Last Taken Unknown] aspirin 81 mg PO/SL DAILY 08/29/21 [History Last Taken 12/13/22 09:00] buspirone 15 mg tablet 15 mg PO BID 12/13/22 [History Last Taken 12/13/22 09:00] fesoterodine 8 mg tablet,extended release 24 hr 8 mg PO DAILY 12/13/22 [History Last Taken 12/13/22 09:00] levothyroxine 125 mcg tablet 125 mcg PO DAILY 12/13/22 [History Last Taken 12/13/22 07:00] melatonin 5 mg capsule 5 mg PO QHS 12/13/22 [History Last Taken 12/12/22] meloxicam 7.5 mg tablet 7.5 mg PO BID 12/13/22 [History Last Taken 12/13/22 09:00] tizanidine 4 mg tablet 4 mg PO BID PRN 12/13/22 [History Last Taken Unknown] vitamin E 268 mg (400 unit) capsule 268 mg PO QHS 12/13/22 [History Last Taken 12/12/22] zinc acetate 1 cap PO DAILY 12/13/22 [History Last Taken 12/13/22 09:00] Allergy/AdvReac Type Severity Reaction Status Date / Time codeine AdvReac Mild Upset Verified 12/13/22 17:08 Stomach hydroxyzine HCl AdvReac Mild Rash Verified 12/13/22 17:08 [From Vistaril] hydroxyzine pamoate AdvReac Mild Rash Verified 12/13/22 17:08 [From Vistaril] Family History (Updated 12/13/22 @ 19:[address] Gabriela Barron MD) Mother Hypertension Diabetes Father Prostate cancer Sister Hypertension Grandmother Heart disease Surgical History (Updated 12/13/22 @ 19:[address] Gabriela Barron MD) H/O umbilical hernia repair History of bilateral hip replacements History of herniorrhaphy History of lithotripsy S/P breast biopsy, right Status post thyroid surgery Social History (Updated 12/13/22 @ 19:[address] Gabriela Barron MD) household members: spouse Smoking Status: Never smoker alcohol intake: never substance use type: does not use EXAM Physical Exam Const Vital Signs: 12/13/22 17:08 12/13/22 17:35 12/13/22 19:40 Temperature 98.2 F Temperature Source Temporal Pulse Rate 89 95 76 Respiratory Rate 18 20 H 18 Blood Pressure 120/64 134/60 H 146/85 H Blood Pressure Mean 82 84 105 Pulse Ox 96 90 96 Oxygen Delivery Method Room Air Room Air Room Air MDM MDM MDM Narrative Medical decision making narrative: HISTORY OF PRESENT ILLNESS: 77-year-old female here with concern for confusion. She thinks she may be overmedicated secondary to taking a muscle relaxer. She notes she fell approximately 4 times over the last week. She states she has been more confused having trouble getting around having gait abnormalities with multiple falls. Does no hitting her head as she fell in the shower 2 days ago. She also notes right-sided neck pain. Denies any focal numbness or weakness. Denies any slur red speech. Daughter states patient was perseverating about being 80 or 90 years older which was not her baseline. Patient states she does feel more confused and drowsy after starting Flexeril. She denies any suicide ideation, homicide nation. Denies any chest pain, shortness of breath, belly pain, vaginal bleeding, trouble urinating. REVIEW OF SYSTEMS: Pertinent positives: Confusion Pertinent negatives: Frequency of urination, focal weakness PHYSICAL EXAM: Nursing triage notes reviewed, Vital signs reviewed Primary Survey Airway: Intact Breathing: Bilateral breath sounds Circulation: Palpable bilateral femorals, Palpable bilateral radial, Palpable bilateral DP and Palpable bilateral PT Disability / Spine precautions GCS Score: Eye Openin Verbal Response: 5 Motor Response: 6 Secondary Survey Constitutional: Please see MDM Head: Atraumatic, Midface stable, NO jaw malocclusion, No Cephalohematoma, and No Lacerations noted Eye: Pupils equal round and reactive to light, Extraocular muscles intact and No periorbital ecchymosis or stepoff, no evidence of entrapment ENT: Oropharynx clear, no lacerations, no hemotympanum, no raccoon eyes or bowens sign Cervical spine / Neck: No cervical spine bony tenderness, crepitance, or stepoff deformity Trachea midline Lungs: Clear to auscultation, No asymmetric rise and No crepitus, no flail chest Cardiac: Regular rate and rhythm and No murmurs Abdomen: Soft, Nontender and No rebound Pelvis: Pelvis stable to compression : No evidence of genital injury Back: No midline bony tenderness to thoracic/lumbar/sacral spines Neuro: Aalert and oriented x3, neuro exam at baseline, cranial nerves II through XII are intact. No pain with extraocular muscle movement. There is negative test of skew. Normal speech. 5 of 5 strength in upper and lower extremities in flexion extension. Intact sensation to light touch in upper and lower extremity dermatomes. No truncal or extremity ataxia. No dysdiadochokinesia. Normal gait. 2+ reflexes. No meningeal signs. Negative Babinski. NIH of 0 Psych: Normal affect Nursing triage notes reviewed, Vital signs reviewed MEDICAL DECISION MAKING: Chief Complaint: Confusion External records reviewed: CT scan from 2021 shows no intracranial hemorrhage Factors affecting care: Hypertension, hypothyroidism,Type 2 diabetes Social determinants of health: Elderly History obtained from others: Patient's daughter Consults: Internal medicine ALL IMAGES (IF OBTAINED) HAVE BEEN PERSONALLY REVIEWED AND INTERPRETED BY MYSELF. EKG with normal sinus rhythm, left axis deviation, normal intervals, no STEMI MDM Narrative: Patient was hemodynamically stable, afebrile, nontoxic-appearing. No focal neurologic deficits. I considered the following differential diagnosis: ICH, cervical spine fracture, metabolic or infectious encephalopathy, polypharmacy I obtained a broad lab and imaging work-up to further elucidate etiology patient complaints. Also obtain a CT scan of the head to rule out ICH, CT scan cervical spine rule out cervical spine abnormality. Also obtain labs to rule out signs of infectious etiologies, metabolic etiology or endocrine etiologies that could precipitate her confusion. Labs and imaging unremarkable for acute traumatic, metabolic, infectious abnormalities. Clinically the patient's presentation is likely secondary to Flexeril causing d rowsiness and confusion given the patient's advanced age. The patient's daughter was uncomfortable with the patient being at home as she lives alone and has been having trouble ambulating with multiple falls. Request patient be admitted for further evaluation, PT OT evaluation and possible placement. The patient and/or family, caregivers express understanding. The patient and/or family, caregivers agrees with the plan. Shared decision making: I will have a discussion with the patient and or visitors regarding risk/benefits of further testing or admission. They will be made aware of of the risk/benefits inherent in this decision they will be given the opportunity to voice understanding. Total critical care time today provided was at least 0 [] minutes. This excludes separately billable procedures. Critical care time (if documented) is secondary to the patient having high probability of clinically significant/life threatening deterioration in the patient's condition which required my urgent intervention. Lab Data Attestation: I reviewed the patient's lab results. Lab results narrative: CBC without leukocytosis, mild anemia, no thrombocytopenia BMP without evidence of significant electrolyte abnormalities, no anion gap, no acute kidney injury. TSH elevated consistent with hypothyroidism, T3 low also consistent hypothyroidism Urinalysis shows no evidence of urinary inflammation suggestive of UTI Salicylates, Tylenol level negative Alcohol level negative Urine tox screen negative Labs: Laboratory Results - last 24 hr 12/13/22 12/13/22 18:15 19:21 WBC 5.1 RBC 4.28 Hgb 11.7 L Hct 35.4 L MCV 82.7 MCH 27.3 MCHC 33.1 RDW Std Deviation 39.6 RDW Coeff of Tabby 13.1 Plt Count 269 MPV 9.0 Immature Gran % (Auto) 1.200 H Neut % (Auto) 71.6 H Lymph % (Auto) 13.6 L [place] % (Auto) 12.4 H Eos % (Auto) 0.6 Baso % (Auto) 0.6 Absolute Neuts (auto) 3.6 Absolute Lymphs (auto) 0.69 L Nucleated RBC % 0 Sodium 133 L Potassium 4.0 Chloride 98 Carbon Dioxide 27.0 Anion Gap 8 BUN 17 Creatinine 0.92 Estim Creat Clear Calc 39.26 Est GFR (MDRD) Af Amer 76 Est GFR (MDRD) Non-Af 63 BUN/Creatinine Ratio 18.5 Glucose 115 H Calcium 8.9 Procalcitonin 0.09 TSH 6.72 H Free T4 1.08 Free T3 pg/dL 1.2 L Urine Color Yellow Urine Clarity Clear Urine pH 6.0 Ur Specific [place] 1.010 Urine Protein 30 H Urine Glucose (UA) Normal Urine Ketones Negative Urine Occult Blood Negative Urine Nitrite Negative Urine Bilirubin Negative Urine Urobilinogen Normal Ur Leukocyte Esterase Negative Urine RBC 0 SEEN Urine WBC 0-5 SEEN Ur Squamous Epith Cells 0 SEEN Urine Bacteria 0 SEEN Urine Mucus 0 SEEN Salicylates < 1.7 L Urine Opiates Screen NEGATIVE Urine Methadone Screen NEGATIVE Acetaminophen < 3.0 L Ur Barbiturates Screen NEGATIVE Ur Phencyclidine Scrn NEGATIVE Ur Amphetamines Screen NEGATIVE MDMA (Ecstasy) Screen NEGATIVE U Benzodiazepines Scrn NEGATIVE Urine Cocaine Screen NEGATIVE U Cannabinoids Screen NEGATIVE Ur Drug Screen Comment Ethyl Alcohol < 3.0 Radiography Chest X-Ray - ED: Read by ED Physician Diagnostic Testing: Clinical Impression(s) from Imaging Studies Brain CT 12/13/22 17:34 IMPRESSION: Chronic involutional changes of the brain. Electronically Signed: Sd Cade MD at 19:01 EDT Reading Location ID and State: [id number] / [employer] Tel , Service support , Cervical Spine CT 12/13/22 18:17 IMPRESSION: No acute fracture or subluxation. Electronically Signed: Sd Cade MD at 19:07 EDT Reading Location ID and State: [id number] / [employer] Tel , Service support , Chest X-Ray 12/13/22 18:26 IMPRESSION: Poor inspiration with some bibasilar atelectasis. Electronically Signed: Sd Cade MD at 18:40 EDT Reading Location ID and State: [employer] / [employer] Tel , Service support , I have personally reviewed the patient's chest x-ray. Chest x-ray is unremarkable for pulmonary edema, pneumothorax, pneumonia or focal cardiopulmonary abnormality. Discharge Plan Dx/Rx/DC Orders Clinical Impression: Abnormal gait, Polypharmacy, Acute confusion Disposition Disposition: Acute Care Hospital [facility] Discharge Date/Time: 12/13/22 21:17
--- NOTE | 2022-12-13 17:34 | EKG12_ITS ---
Test Reason : CONFUSED Blood Pressure : / mmHG Vent. Rate : 091 BPM Atrial Rate : 091 BPM P-R Int : 172 ms QRS Dur : 100 ms QT Int : 336 ms P-R-T Axes : 048 -21 043 degrees QTc Int : 413 ms Normal sinus rhythm Normal ECG Confirmed by MICA FLORES, JANEY ([id number]), business editor JALEEL MCCRACKEN ([id number]) on 12/17/2022 8:43:16 AM Referred By: Gabriela Barron Confirmed By:CASEY NINO MD
--- NOTE | 2022-12-13 17:34 | CT_ITS ---
STUDY: CT BRAIN WITHOUT CONTRAST REASON FOR EXAM: Female, 77 years old. Change in Mental Status RADIATION DOSAGE (If Supplied By Facility): CTDIvol = ( 44.99 ) mGy, DLP = ( 796.11 ) mGycm TECHNIQUE: Transaxial CT imaging of the brain was performed without administration of intravenous contrast material. Individualized dose optimization techniques were used for this CT. COMPARISON: 06/18/2021 FINDINGS: Normal soft tissue structures. Normal calvarium. There is mild cerebral atrophy with widening of the extra-axial spaces and ventricular dilatation. There are areas of decreased attenuation within the white matter tracts of the supratentorial brain, consistent with microvascular disease changes. There are small punctate calcifications of the basal ganglia which are seen in the aging brain as a normal variant. Normal brainstem. Normal cerebellum. There is no intracranial hemorrhage. There are no findings of an acute ischemic infarction. Normal visualized paranasal sinuses. CT/Brain/Head without Contrast IMPRESSION: Chronic involutional changes of the brain. Electronically Signed: Sd Cade MD at 19:01 EDT ,
[2022-12-13 17:35] VITALS: BP 134/60; PULSE 95; RESP 20; O2SAT 90
[2022-12-13] MEDS: 0.9% Normal Saline 1,000 ML 999 ML IV (18:13)
--- NOTE | 2022-12-13 18:17 | CT_ITS ---
STUDY: CT CERVICAL SPINE WITHOUT CONTRAST REASON FOR EXAM: Female, 77 years old. Neck pain RADIATION DOSAGE (If Supplied By Facility): CTDIvol = ( 17.69 ) mGy, DLP = ( 363.45 ) mGycm TECHNIQUE: High resolution transaxial imaging was performed without contrast material. Sagittal and coronal images were reconstructed. Individualized dose optimization techniques were used for this CT. COMPARISON: 718 FINDINGS: Normal craniovertebral junction. There is hypertrophy of the transverse ligament of the atlas with mild posterior displacement of the superior and inferior longitudinal fibers of the cruciform ligament, producing minimal ventral thecal sac flattening, but without cervical cord impingement. There are mild degenerative changes in the anterior atlantoaxial articulation. Normal odontoid process. Normal cervical lordosis. Normal vertebral bodies and posterior osseous elements. C2-3: Moderate left facet hypertrophy produces mild left neural foraminal stenosis. No central spinal stenosis. C3-4: Moderate left facet hypertrophy produces moderate left neural foraminal stenosis. Mild bilobed disc osteophyte complex and bilateral uncovertebral hypertrophy produces mild spinal stenosis. C4-5: Mild broad disc osteophyte complex produces mild spinal stenosis but no neural foraminal stenosis. C5-6: Mild broad disc osteophyte complex and bilateral uncovertebral hypertrophy produces mild spinal stenosis and mild bilateral neural foraminal stenosis. C6-7: Normal endplates. Normal disc height and morphology. Normal central canal and intervertebral neuroforamina. C7-T1: Normal endplates. Normal disc height and morphology. Normal central canal and intervertebral neuroforamina. Normal visualized soft tissue structures. CT/Spine Cervical without Contras IMPRESSION: No acute fracture or subluxation. Electronically Signed: Sd Cade MD at 19:07 EDT ,
[2022-12-13 18:21] LABS: Absolute Lymphocyte Count 0.69 X10^3/uL (0.83-4.51); Absolute Neutrophil Count 3.6 X10^3/uL (2.0-7.7); Basophil# 0.03 X10^3/uL; Basophil% 0.6 % (0-1); Eosinophil# 0.03 X10^3/uL; Eosinophils% 0.6 % (0-5); Hematocrit 35.4 % (37-47); Hemoglobin 11.7 g/dL (12.0-15.0); Lymphocyte # 0.69 X10^3/ul (0.83-4.51); Lymphocyte % 13.6 % (19-41); Mean Corp Hgb Conc 33.1 g/dL (32-36); Mean Corpuscular Hgb 27.3 pg (27.0-32.0); Mean Corpuscular Volume 82.7 fL (81-99); Monocyte# 0.63 X10^3/uL; Monocyte% 12.4 % (0-10); NRBC Flagged by Analyzer 0 % (0-5); Neutrophil # 3.63 X10^3/uL (2.7-7.7); Neutrophil % 71.6 % (47-70); Platelet Count 269 K/mm3 (150-450); RBC Distribution Width CV 13.1 % (11.6-14.6); RBC Distribution Width SD 39.6 fl (35.1-43.9); Red Blood Count 4.28 M/mm3 (4.2-5.4); White Blood Count 5.1 K/mm3 (4.4-11.0)
--- NOTE | 2022-12-13 18:21 | NURSING ---
pt in today with expressive aphasia and falls. fell in night and wed morning. uses cane but increased ataxia. supposed to have physical therapy feroz 12/21. pt started muscle relaxer d/t kink in neck from fall and daughter reported that since fall and or start of new meds pt mixed up
--- NOTE | 2022-12-13 18:26 | RAD_ITS ---
STUDY: X-RAY CHEST REASON FOR EXAM: Female, 77 years old. AMS TECHNIQUE: Single AP portable view of the chest. COMPARISON: 02/24/2020 FINDINGS: Poor inspiration with some bibasilar atelectasis. There is no demonstrated pleural abnormality. Normal size heart. Normal mediastinum and carlin. Normal visualized pulmonary arteries. Normal visualized aortic arch and descending thoracic aorta. Normal visualized thoracic spine. Normal visualized ribs, clavicles, and shoulders. There is no demonstrated abnormality of the visualized soft tissue structures of the upper abdomen.
[2022-12-13 18:40] LABS: Acetaminophen (Tylenol) Level < 3.0 ug/mL (10.0-30.0); Alcohol, Blood (Medical)-Serum < 3.0 mg/dL; Salicylate < 1.7 mg/dL (2.8-20.0)
[2022-12-13 18:47] LABS: Anion Gap 8 (5-15); BUN 17 mg/dL (7-18); BUN/Creat Ratio 18.5 RATIO (10-20); Calcium,Total 8.9 mg/dL (8.5-10.1); Chloride 98 mmol/L (98-107); Creatinine, Serum 0.92 mg/dL (0.55-1.02); EST Glomerular Filtration Rate 63 mL/min (>60); Est Glom Filt Rate - Afr Amer 76 mL/min (>60); Estimated Creatinine Clearance 39.26 ml/min; Glucose 115 mg/dL (74-106); Sodium Level 133 mmol/L (136-145); Thyroid Stim Hormone (TSH) 6.72 uIU/mL (0.358-3.74)
[2022-12-13 19:22] LABS: Free T3 1.2 pg/mL (2.18-3.98); T4 Free Direct 1.08 ng/dL (0.76-1.46)
--- NOTE | 2022-12-13 19:36 | HP.PCM.HOS_ITS ---
HPI - General General Date of Admission: 12/13/22 Date of Service: 12/13/22 Chief Complaint: Falls, confused. HPI Narrative The patient is a 77 y/o F w/ PMHx: Morbid obesity, Chronic anemia, Depression and Anxiety/Bipolar disorder, HTN, HLD, GERD, Diabetes mellitus type II, Hx SBO, Hypothyroidism, who presents to the [facility] ED on 12/13/22 with history of onset of confusion with concern that maybe she accidentally overmedicated with a muscle relaxer with approximate 4 falls over the last week with difficulty getting around with no specific head trauma however she does report even falling in the shower 2 days prior to current presentation with ongoing persistent right neck pain with no focal deficits prompt eventual ED evaluation. Patient does report that this all started following initiation of Flexeril outpatient which is confirmed by family but when looking at medication reconciliation recently it appears as though she was rx tizanadine and not flexeril but family bringing in home medications. Patient does report that her urine has intermittent smelled strong, possibly foul. Work-up in the ED included T98.2, heart rate 89, BP 120/64, respiratory rate 18, initially 96% on room air with most recent repeat vitals heart rate 95, BP 134/60, respiratory rate 20, 90% on room air, CBC with WBC 5.1, hemoglobin 11.7, MCV 82.7, platelet 269 with increased immature granulocytes and lymphopenia, BMP with sodium 133, glucose 115, TSH 6.27 however free T4 1.08, free T3 1.2, salicylate less than 1.7, acetaminophen less than 3, ethyl alcohol less than 3, CT of the brain with chronic involutional changes, CT cervical spine with chronic changes with no acute fracture or subluxation, chest x-ray with poor inspiration with some bibasilar atelectasis, UDS negative, urinalysis not marked appearing with negative ketone, negative nitrite and no leukocyte Estrace however there is still pending urine RBC/WBC in urine bacteria but low suspicion for UTI at this point given these findings already, EKG with SR without acute evidence of ischemia. In the ED patient ministered 1 L normal saline. [facility] Medical History (Updated 12/13/22 @ 19:[address] Gabriela Barron MD) Anxiety and depression Bipolar 1 disorder GERD (gastroesophageal reflux disease) History of small bowel obstruction HTN (hypertension) Hyperlipemia Morbid obesity Type II diabetes mellitus Home Medications buspirone 5 mg tablet 20 mg PO QHS 01/24/16 [History Last Taken 01/05/17] calcium phosphate 250 mg-vit D3 12.5 mcg (500 unit) chewable tablet (Citracal-D3 Gummies) 2 ea PO DAILY 01/24/16 [History Last Taken 01/05/17] lamotrigine 150 mg tablet 150 mg PO DAILY 01/24/16 [History Last Taken 01/05/17] cholecalciferol (vitamin D3) 25 mcg (1,000 unit) capsule (Vitamin D3) 2,400 unit PO DAILY 01/08/17 [History Last Taken Unknown] olanzapine 2.5 mg tablet (Zyprexa) 2.5 mg PO DAILY 01/08/17 [History Last Taken Unknown] cranberry 500 mg capsule 500 mg PO BID 02/24/20 [History Last Taken Unknown] melatonin 3 mg tablet 3 mg PO QHS 02/24/20 [History Last Taken Unknown] naproxen 500 mg tablet 500 mg PO BID PRN #20 tabs 02/24/20 [Rx Last Taken Unknown] vits,calcium no.78-iron fumarate-folic acid 29 mg-1 mg tablet 1 tab PO DAILY 02/24/20 [History Last Taken Unknown] Crestor 10 mg PO QHS 07/15/20 [History Last Taken Unknown] Desvenlafaxine Succinate ER 50 mg PO DAILY 07/15/20 [History Last Taken Unknown] Losartan Potassium 100 mg PO DAILY 07/15/20 [History Last Taken Unknown] Norvasc 5 mg PO DAILY 07/15/20 [History Last Taken Unknown] Omeprazole 40 mg PO DAILY 07/15/20 [History Last Taken Unknown] Vit C/Ascorb Sod/Multivit-Min 500 mg PO DAILY 07/15/20 [History Last Taken Unknown] hydrocodone-acetaminophen 5-325mg 5mg-325mg 1 tab PO Q6H PRN PRN Pain 3 days #10 TABLETS 05/27/21 [Rx Last Taken Unknown] amlodipine 5 mg PO/SL DAILY 08/29/21 [History Last Taken Unknown] aspirin 81 mg PO/SL DAILY 08/29/21 [History Last Taken Unknown] Gemtesa 75 mg PO/SL DAILY 03/13/22 [History Last Taken Unknown] meloxicam 3.75 mg PO/SL BID 03/13/22 [History Last Taken Unknown] benzonatate 100 mg capsule 200 mg (2 x 100 mg) PO TID PRN cough #30 caps 04/21/22 [Rx Last Taken Unknown] levothyroxine 137 mcg tablet 137 mcg PO DAILY 06/08/22 [History Last Taken Unknown] Allergy/AdvReac Type Severity Reaction Status Date / Time codeine AdvReac Mild Upset Verified 12/13/22 17:08 Stomach hydroxyzine HCl AdvReac Mild Rash Verified 12/13/22 17:08 [From Vistaril] hydroxyzine pamoate AdvReac Mild Rash Verified 12/13/22 17:08 [From Vistaril] Family History (Updated 12/13/22 @ 19:[address] Gabriela Barron MD) Mother Hypertension Diabetes Father Prostate cancer Sister Hypertension Grandmother Heart disease Surgical History (Updated 12/13/22 @ 19:[address] Gabriela Barron MD) H/O umbilical hernia repair History of bilateral hip replacements History of herniorrhaphy History of lithotripsy S/P breast biopsy, right Status post thyroid surgery Social History (Updated 12/13/22 @ 19:[address] Gabriela Barron MD) household members: spouse Smoking Status: Never smoker alcohol intake: never substance use type: does not use ROS ROS Narrative Admission Review of Systems: CONSTITUTIONAL: No weight loss, fever, chills, + weakness or fatigue. HEENT: + Neck strain. Eyes: No visual loss, blurred vision, double vision or yellow sclerae. Ears, Nose, Throat: No hearing loss, sneezing, congestion, runny nose or sore throat. SKIN: No rash or itching, lesions, wounds. CARDIOVASCULAR: No chest pain, chest pressure or chest discomfort, palpitations, edema, orthopnea, syncopal events. RESPIRATORY: No shortness of breath, cough or sputum, wheezing, hemoptysis. GASTROINTESTINAL: No anorexia, nausea, vomiting or diarrhea, abdominal pain, melena, BRBPR. GENITOURINARY: + Reports strong smelling urine. No dysuria, frequency, urgency or retention. NEUROLOGICAL: + Falls, confusion, intermittent lethargy, headache, No syncope, paralysis, ataxia, numbness or tingling in the extremities, focal weakness, change in bowel or bladder control, seizure. MUSCULOSKELETAL: + muscle, back pain, joint pain or stiffness. HEMATOLOGIC: No anemia, bleeding or bruising. LYMPHATICS: No enlarged nodes. No history of splenectomy. PSYCHIATRIC: + history of depression or anxiety. ENDOCRINOLOGIC: No reports of sweating, cold or heat intolerance. No polyuria or polydipsia. ALLERGIES: No history of asthma, hives, eczema or rhinitis. Vital Signs Vital Signs Vital Signs: 12/13/22 17:08 12/13/22 17:35 Temperature 98.2 F Temperature Source Temporal Pulse Rate 89 95 Respiratory Rate 18 20 H Blood Pressure 120/64 134/60 H Blood Pressure Mean 82 84 Pulse Ox 96 90 Oxygen Delivery Method Room Air Room Air Weight Weight: 214 lb 11.684 oz Body Mass Index (BMI) 40.6 Physical Exam Narrative Physical Examination: General: Awake, alert, oriented to self, place and recent events, family notes she does seem improved, cooperative, seated upright in the ED bed in no apparent distress, asking for food. Skin: Normal color, normal turgor, no icterus, no cyanosis except occasional staged ecchymoses/abrasion to extremities which is expected with recent fall history. HEENT: AT/NC, EOMI, PERRLA, moderately dry MM, no carotid bruits or JVD noted. Lungs: Mild edema greater based, appropriate effort, no rales, ronchi or wheezing. Heart: Regular rate and rhythm; no gallop, rub audible, + SM, confirmed chronic with patient/family. Abdomen: Soft, morbidly obese, NTTP, ND, hyperactive BS, no obvious evidence of HSM. Extremities: No cyanosis, clubbing, or edema. Neurological: Patient awake, alert, oriented as noted, cognitive function improving especially since initial arrival, suspect nearing baseline intact; pu pils equally reactive to light and accommodation, cranial nerves grossly normal, moving all 4 extremities, no focal deficits, strength moderately globally decreased secondary to acute presentation complaints as noted. Psychiatric: Affect appears fatigued otherwise normal, no acute evidence of depressive or anxiety feelings but does have notable underlying history. Results Lab / Micro Data 12/13/22 18:15 12/13/22 18:15 Labs: Laboratory Results - last 24 hr 12/13/22 18:15: WBC 5.1, RBC 4.28, Hgb 11.7 L, Hct 35.4 L, MCV 82.7, MCH 27.3, MCHC 33.1, RDW Std Deviation 39.6, RDW Coeff of Tabby 13.1, Plt Count 269, MPV 9.0, Immature Gran % (Auto) 1.200 H, Neut % (Auto) 71.6 H, Lymph % (Auto) 13.6 L , Summers % (Auto) 12.4 H, Eos % (Auto) 0.6, Baso % (Auto) 0.6, Absolute Neuts (auto) 3.6, Absolute Lymphs (auto) 0.69 L, Nucleated RBC % 0, Sodium 133 L, Potassium 4.0, Chloride 98, Carbon Dioxide 27.0, Anion Gap 8, BUN 17, Creatinine 0.92, Estim Creat Clear Calc 39.26, Est GFR (MDRD) Af Amer 76, Est GFR (MDRD) Non-Af 63, BUN/Creatinine Ratio 18.5, Glucose 115 H, Calcium 8.9, TSH 6.72 H, Free T4 1.08, Free T3 pg/dL 1.2 L, Salicylates < 1.7 L, Acetaminophen < 3.0 L, Ethyl Alcohol < 3.0 12/13/22 19:21: Ur Drug Screen Comment Radiology Impression Brain CT 12/13/22 17:34 IMPRESSION: Chronic involutional changes of the brain. Electronically Signed: Sd Cade MD at 19:01 EDT Reading Location ID and State: [employer] / [employer] Tel , Service support , Cervical Spine CT 12/13/22 18:17 IMPRESSION: No acute fracture or subluxation. Electronically Signed: Sd Cade MD at 19:07 EDT Reading Location ID and State: [id number] / [employer] , Service support , Chest X-Ray 12/13/22 18:26 IMPRESSION: Poor inspiration with some bibasilar atelectasis. Electronically Signed: Sd Cade MD at 18:40 EDT , Assessment & Plan Assessment/Plan (1) Encephalopathy acute: PLAN: Plan The patient is a 77 y/o F w/ PMHx: Morbid obesity, Chronic anemia, Depression and Anxiety/Bipolar disorder, HTN, HLD, GERD, Diabetes mellitus type II, Hx SBO, Hypothyroidism, who presents to the [facility] ED on 12/13/22 with history of onset of confusion with concern that maybe she accidentally overmedicated with a muscle relaxer with approximate 4 falls over the last week with difficulty getting around with no specific head trauma however she does report even falling in the shower 2 days prior to current presentation with ongoing persistent right neck pain with no focal deficits prompt eventual ED evaluation. #1. Confusion, encephalopathy suspected secondary to possible medication side effect/accidental overdose: Given these symptoms had onset following Flexeril versus tizanidine usage but awaiting clarification of medications as family/patient giving Flexeril name however tizanidine per medication reconciliation history was what was listed most recently filled, especially with advanced age high suspicions that is related, will hold this medication and any sedate of medication pending patient mentation status at the time of dosing as well, will maintain fall and aspiration precautions, will judiciously hydrate as suspect mild hypovolemia/dehydration, repeat CBC, CMP in a.m., will have PT/OT/case management consulted for discharge planning, UA currently not marked appearing but finalization pending, procalcitonin pending given also family concern infectious etiology. #2. Hyponatremia, mild, suspected mild hypokalemia: Admission sodium 133, usually baseline normal, suspect given recent Flexeril usage and lethargy likely decreased intake, will judiciously hydrate and repeat CMP in AM. #3. Chronic normocytic anemia: Admission hemoglobin 11.7, has vacillated over time but does range from 11 to primarily 12, last noted prior to this 05/27/2019 2212.7, continue to trend. #4. Chart reported history diabetes mellitus type II: From current list does not appear to be on any regimen, will clarify, in the interim we will maintain on ADA diet, accu checks w/ ISS, HgbA1c pending. #5. Hypothyroidism: We will continue patient home levothyroxine regimen, given acute presentation would continue regimen at this time with consideration of changes if repeat thyroid function studies altered outpatient but currently TSH 6.27 with free T4 1.08, free T3 1.2. #6. Anxiety and depression/bipolar disorder: We will cautiously continue pat ient psychiatric regimen however low threshold to hold if patient sedated or lethargic, this includes Zyprexa, lamotrigine, BuSpar home regimen. #7. Hypertension: Continue home regimen including amlodipine, losartan with hold parameters as needed, PRN hydralazine. #8. Hyperlipidemia: We will continue patient home statin therapy. #9. Morbid Obesity: Weight loss and lifestyle changes encouraged. #10. GERD: We will continue patient home PPI. #11. DVT prophylaxis: SCDs. Charges/Coding Visit Charges Inpatient E&M: 74312 Init Hosp L2
[2022-12-13 19:40] VITALS: BP 146/85; PULSE 76; RESP 18; O2SAT 96
[2022-12-13 19:44] LABS: Amphetamine Urine VISTA NEGATIVE (<1000 ng/mL); Barbiturate Urine VISTA NEGATIVE (< 200 ng/mL); Benzodiazepine Urine VISTA NEGATIVE (< 200 ng/mL); Cocaine Urine VISTA NEGATIVE (< 300 ng/mL); Ecstacy Urine VISTA NEGATIVE (< 500 ng/mL); Methadone Urine VISTA NEGATIVE (< 300 ng/mL); PCP Urine VISTA NEGATIVE (< 25 ng/mL); THC Urine VISTA NEGATIVE (< 50 ng/mL); Vista UDS pH Range 6
[2022-12-13 20:19] LABS: Bacteria 0 SEEN /hpf (None Seen); Mucous, Urine 0 SEEN /hpf (<or=2+); Red Blood Cells-Urine 0 SEEN /hpf (0-5); Squamous Epithelial Cells - UA 0 SEEN /hpf (5-10)
[2022-12-13 20:22] LABS: Color, Urine Yellow (Yellow); Glucose, Dipstick Normal (Normal); Ketone-Dipstick Negative (Negative); Leukocyte Esterase-Dipstick Negative /ul (Negative); Nitrite-Dipstick Negative (Negative); Occult Blood-Urine Negative /ul (Negative); Protein-Dipstick 30 mg/dl (Negative); Urine Bilirubin Dipstick Negative (Negative); Urine Clarity Clear (Clear); Urine Urobilinogen Normal (Normal)
[2022-12-13 20:42] LABS: White Blood Cells 0-5 SEEN /hpf (0-5)
[2022-12-13 21:16] VITALS: BP 147/72; PULSE 76; RESP 18; TEMP 36.7; O2SAT 96
[2022-12-13 21:32] VITALS: BMI 31.0
[2022-12-13 22:38] LABS: Procalcitonin 0.09 ng/mL (0.00-0.09)
[2022-12-13] MEDS: MELATONIN 3 MG TABLET PO (23:28)
[2022-12-13] MEDS: 0.9% Normal Saline 1,000 ML 100 ML IV (23:28)
[2022-12-14 01:40] LABS: Bedside Glucose 113 mg/dL (74-106)
[2022-12-14 02:00] VITALS: BP 116/60; PULSE 70; RESP 18; TEMP 37.5; O2SAT 92
[2022-12-14 06:00] VITALS: BMI 31.1
[2022-12-14 06:10] LABS: Absolute Lymphocyte Count 0.96 X10^3/uL (0.83-4.51); Absolute Neutrophil Count 3.1 X10^3/uL (2.0-7.7); Basophil# 0.03 X10^3/uL; Basophil% 0.6 % (0-1); Eosinophil# 0.05 X10^3/uL; Hematocrit 31.3 % (37-47); Hemoglobin 10.1 g/dL (12.0-15.0); Lymphocyte # 0.96 X10^3/ul (0.83-4.51); Lymphocyte % 18.6 % (19-41); Mean Corp Hgb Conc 32.3 g/dL (32-36); Mean Corpuscular Hgb 27.1 pg (27.0-32.0); Mean Corpuscular Volume 83.9 fL (81-99); Mean Platelet Vol. 9.2 fl (6.2-12.0); Monocyte% 19.3 % (0-10); NRBC Flagged by Analyzer 0 % (0-5); Neutrophil # 3.07 X10^3/uL (2.7-7.7); Neutrophil % 59.3 % (47-70); Platelet Count 247 K/mm3 (150-450); RBC Distribution Width CV 13.1 % (11.6-14.6); RBC Distribution Width SD 40.2 fl (35.1-43.9); Red Blood Count 3.73 M/mm3 (4.2-5.4); White Blood Count 5.2 K/mm3 (4.4-11.0)
[2022-12-14] MEDS: Levothyroxine 137 MCG Tablet PO (06:33)
[2022-12-14 06:46] LABS: ALB/GLOB Ratio 0.6 RATIO (0.9-2.4); AST(SGOT) 55 U/L (15-37); Alanine Aminotransfer ALT/SGPT 59 U/L (13-56); Albumin, Serum 2.3 g/dL (3.2-5.0); Alkaline Phosphatase 74 U/L (45-117); Anion Gap 6 (5-15); BUN 13 mg/dL (7-18); BUN/Creat Ratio 18.6 RATIO (10-20); Calcium,Total 8.3 mg/dL (8.5-10.1); Chloride 105 mmol/L (98-107); EST Glomerular Filtration Rate 87 mL/min (>60); Est Glom Filt Rate - Afr Amer 105 mL/min (>60); Estimated Creatinine Clearance 37.85 ml/min; Globulin 3.9 g/dL (2.2-4.2); Glucose 102 mg/dL (74-106); Potassium 3.9 mmol/L (3.5-5.1); Protein, Total 6.2 g/dL (6.4-8.2); Sodium Level 137 mmol/L (136-145)
[2022-12-14 06:49] LABS: Bedside Glucose 106 mg/dL (74-106)
[2022-12-14 07:31] VITALS: O2SAT 96
[2022-12-14] MEDS: Aspirin E.C. 81 MG Tablet PO (08:37)
[2022-12-14 08:41] VITALS: BP 113/64; PULSE 73; RESP 16; TEMP 37.3; O2SAT 94
[2022-12-14] MEDS: Acetaminophen 325 MG Tablet 650 MG PO ×2 (08:58→15:24)
[2022-12-14] MEDS: Pantoprazole Sodium 40 MG Tablet PO (09:06)
[2022-12-14] MEDS: amLODIPine 5 MG Tablet PO (09:07)
[2022-12-14] MEDS: OLANZapine 2.5 MG Tablet PO (09:07)
[2022-12-14] MEDS: lamoTRIgine 150 MG Tablet PO (09:07)
[2022-12-14] MEDS: Venlafaxine XR 37.5 MG Capsule PO (09:10)
[2022-12-14] MEDS: busPIRone 15 MG TABLET PO ×2 (09:10→21:57)
[2022-12-14] MEDS: Losartan Potassium 100 MG Tablet PO (09:10)
[2022-12-14] MEDS: Meloxicam 7.5 MG Tablet PO ×2 (09:10→21:58)
--- NOTE | 2022-12-14 09:58 | CASEMGMT ---
RN CM in to discuss HANNA form with patient. RN ELIZABETH explained HANNA form, patient voiced understanding. Pt signed form and filed in chart. Pt provided with a copy of signed HANNA form. Patient had no further questions or concerns at this time. Pt dtr also present in room.
[2022-12-14] MEDS: 0.9% Normal Saline 1,000 ML 100 ML IV (10:21)
--- NOTE | 2022-12-14 11:02 | CASEMGMT ---
Addendum entered by Kari Miner 12/14/22 11:42: Social Work SW spoke w/PT and OT, they state pt would benefit from going to SNF for rehab, and pt is now agreeable. SW spoke w/pt and family again in room about SNF choices. Pt would like 1. [facility] 2. [facility] or 3. [facility]. SW also asked about mental health history, pt had one psych placement 35 years ago. Pt does has a psychiatrist at [facility] but no case management. SW called [facility]. [place] left for Miley Ardon, pt's showcase trimmer, let her know pt is here and we are working on SNF placement. SW sent referral to [facility] via [facility], will continue to follow. BORIS Barry Original Note: Social Work SW met w/pt and daughter Jenni in room in regard to prior level of function and anticipated discharge plan. PCP: Dr. Nichols Specialists: Psychiatry at [facility], in the process of changing to Dr. Gurrola. [facility]acy[facility] Insurance: [facility] LNOK: , four children, children's families Living arrangements: Pt lives home alone in an apartment with a few steps into the front. She can walk in another entrance with no steps but it is a far walk for pt. in same apartment complex but in a different apartment. Prior level of function: Pt is somewhat independent, however family does assist pt. She has needed more help the last week due to leg and neck pain, and falls. Pt normally gets around with a cane. Family drives pt or she takes the hospital van. Pt has [employer] services, Miley Ardon is her showcase trimmer. Daughter Maegan is pt's aide two days per week to help around the house, and with bathing. Pt also has CCN, and Gem organizes pt's medications for pt. LW/POA: Pt has not completed the documents, may be interested in completing them here as time allows. DME: Pt has a life alert, cane, and lift chair. SNF/HHC: Pt has not been to SNF in the past. She states her was in [facility] and it was not a good experience. SW spoke w/pt and daughter regarding plan. Pt would prefer to go home if possible. Derik Arteaga explains concern about pt going home, due to her leg and neck pain. SW explained we can see how pt does with therapy, and then make a more informed decision on the most appropriate plan for pt. SW did provide to daughter a list of assisted facilities in network w/pt's insurance, in pt's preferred geographic area, and complete w/quality and resource use data. SW to follow up after PT/OT. BORIS Barry
[2022-12-14 11:48] LABS: Bedside Glucose 91 mg/dL (74-106)
--- NOTE | 2022-12-14 12:27 | CASEMGMT ---
Updated Hipolito at [facility] that pt dc plan is SNF.
--- NOTE | 2022-12-14 13:20 | CASEMGMT ---
Addendum entered by Kari Miner 12/14/22 14:04: Social Work SW called [facility], they are still reviewing the referral. SW asked Mary to let SW know [facility] if they can take pt so we can start precert. BORIS Barry Original Note: Social Work Bill Abdi is reviewing the referral, [facility] did accept pt. SW spoke w/daughter Jenni in the room, updated her. SW also was going to assist pt w/LW and POA, however she is sleeping. SW will check back. SW sent a message via [employer] to [facility] inquiring whether or not they will be taking pt. SW awaiting response. PAS/RR started in the HENS system. BORIS Barry
--- NOTE | 2022-12-14 15:10 | CASEMGMT ---
Social Work [facility] did accept pt and will start precert. SW let Yogesh Almaguer and Venessa know via [facility]. SW spoke w/pt and daughter Jenni in room, let them know [facility] accepted her and started precert. They are agreeable. SW completed the PAS/RR in the [employer] system, printed it along w/the results, no further review is needed. SW then assisted pt in completing LW and POA. Pt listed daughter Jenni as POA. SW gave pt originals and copies, and copies placed on chart. BORIS Barry
[2022-12-14 15:19] VITALS: BP 99/50; PULSE 66; RESP 17; TEMP 36.6; O2SAT 99
[2022-12-14] MEDS: 0.9% Saline Lock 10 ML Syringe IV (15:25)
--- NOTE | 2022-12-14 16:40 | CHAPLAIN ---
Type of Pastoral Visit _x__ Initial Visit ___ Follow-up Visit ___ On-call Visit ___ General Patient Visit ___ Spiritual Assessment ___ Family Conference ___ Bereavement ___ Rapid Response ___ Code Blue ___ Other (describe below) Pastoral Care Referral From _x__ Patient ___ Family ___ Nurse ___ Physician ___ Medicaid Nurse ___ Supervisor Kennel ___ Other (describe below) Sacrament/Intervention _x__ Active listening ___ Anointing ___ Adventism ___ Bereavement ___ Communion _x__ [place]rata exploration ___ ___ Life review _x__ Prayer ___ Reconciliation ___ Sacrament of Sick ___ Supportive presence ___ Wedding ___ Other (describe below) Pastoral Comments patient explains her health situation and states that she is feeling much better today; pt talks about her restorationist and her activity; pt asks for spiritual care support and a prayer at this time; pt has concerns about regaining strength and going to the right place for therapy;
[2022-12-14 17:14] LABS: Bedside Glucose 129 mg/dL (74-106)
--- NOTE | 2022-12-14 17:55 | PN.HOSP_ITS ---
Reason for Visit Reason for Visit: Diagnoses Encephalopathy, unspecified (12/13/22) Subjective Subjective Patient was seen and examined today, I talked with her daughter today who feels that she is not able to go home and be by herself, she states that she have the patient stay with her. I asked the patient if she would want to go to a nursing home facility for short-term rehab services, initially she said no but later on in the day she agreed for temporary placement in a nursing home facility for rehab services. Objective Data Objective Data Vital Signs: Vital Signs Temp Pulse Resp BP Pulse Ox O2 Del Method 97.8 F 66 17 99/50 L 99 Room Air 12/14/22 15:19 12/14/22 15:19 12/14/22 15:19 12/14/22 15:19 12/14/22 15:19 12/14/22 15:20 Oxygen Delivery Method Room Air Weight: 77.167 kg Body Mass Index (BMI) 31.1 Intake & Output: Intake and Output for Last 24 Hours 12/12/22 12/13/22 12/14/22 23:59 23:59 23:59 Intake Total 1300 / 1300 1600 / 1600 Output Total 150 / 150 Balance 1150 / 1150 1600 / 1600 Lab / Micro Data 12/14/22 05:13 12/14/22 05:13 Labs: Laboratory Results - last 24 hr 12/13/22 18:15: WBC 5.1, RBC 4.28, Hgb 11.7 L, Hct 35.4 L, MCV 82.7, MCH 27.3, MCHC 33.1, RDW Std Deviation 39.6, RDW Coeff of Tabby 13.1, Plt Count 269, MPV 9.0, Immature Gran % (Auto) 1.200 H, Neut % (Auto) 71.6 H, Lymph % (Auto) 13.6 L , Woodward % (Auto) 12.4 H, Eos % (Auto) 0.6, Baso % (Auto) 0.6, Absolute Neuts (auto) 3.6, Absolute Lymphs (auto) 0.69 L, Nucleated RBC % 0, Sodium 133 L, Potassium 4.0, Chloride 98, Carbon Dioxide 27.0, Anion Gap 8, BUN 17, Creatinine 0.92, Estim Creat Clear Calc 39.26, Est GFR (MDRD) Af Amer 76, Est GFR (MDRD) Non-Af 63, BUN/Creatinine Ratio 18.5, Glucose 115 H, Calcium 8.9, Procalcitonin 0.09, TSH 6.72 H, Free T4 1.08, Free T3 pg/dL 1.2 L, Salicylates < 1.7 L, Acetaminophen < 3.0 L, Ethyl Alcohol < 3.0 12/13/22 19:21: Urine Color Yellow, Urine Clarity Clear, Urine pH 6.0, Ur Specific Tower 1.010, Urine Protein 30 H, Urine Glucose (UA) Normal, Urine Ketones Negative, Urine Occult Blood Negative, Urine Nitrite Negative, Urine Bilirubin Negative, Urine Urobilinogen Normal, Ur Leukocyte Esterase Negative, Urine RBC 0 SEEN, Urine WBC 0-5 SEEN, Ur Squamous Epith Cells 0 SEEN, Urine Bacteria 0 SEEN, Urine Mucus 0 SEEN, Urine Opiates Screen NEGATIVE, Urine Methadone Screen NEGATIVE, Ur Barbiturates Screen NEGATIVE, Ur Phencyclidine Scrn NEGATIVE, Ur Amphetamines Screen NEGATIVE, MDMA (Ecstasy) Screen NEGATIVE, U Benzodiazepines Scrn NEGATIVE, Urine Cocaine Screen NEGATIVE, U Cannabinoids Screen NEGATIVE, Ur Drug Screen Comment 12/13/22 23:13: POC Glucose 113 H 12/14/22 05:13: WBC 5.2, RBC 3.73 L, Hgb 10.1 L, Hct 31.3 L, MCV 83.9, MCH 27.1, MCHC 32.3, RDW Std Deviation 40.2, RDW Coeff of Tabby 13.1, Plt Count 247, MPV 9.2, Immature Gran % (Auto) 1.200 H, Neut % (Auto) 59.3, Lymph % (Auto) 18.6 L, Woodward % (Auto) 19.3 H, Eos % (Auto) 1.0, Baso % (Auto) 0.6, Absolute Neuts (auto) 3.1, Absolute Lymphs (auto) 0.96, Nucleated RBC % 0, Sodium 137, Potassium 3.9, Chloride 105, Carbon Dioxide 26.0, Anion Gap 6, BUN 13, Creatinine 0.70, Estim Creat Clear Calc 37.85, Est GFR (MDRD) Af Amer 105, Est GFR (MDRD) Non-Af 87, BUN/Creatinine Ratio 18.6, Glucose 102, Hemoglobin A1c 6.0 H, Calcium 8.3 L, Total Bilirubin 0.30, AST 55 H, ALT 59 H, Alkaline Phosphatase 74, Total Protein 6.2 L, Albumin 2.3 L, Globulin 3.9, Albumin/Globulin Ratio 0.6 L 12/14/22 06:26: POC Glucose 106 12/14/22 11:22: POC Glucose 91 12/14/22 16:55: POC Glucose 129 H Radiography Diagnostic Testing: Radiology Impression Brain CT 12/13/22 17:34 IMPRESSION: Chronic involutional changes of the brain. Electronically Signed: Sd Cade MD at 19:01 EDT Reading Location ID and State: [id number] / [employer] , Service support , Cervical Spine CT 12/13/22 18:17 IMPRESSION: No acute fracture or subluxation. Electronically Signed: Sd Caed MD at 19:07 EDT Reading Location ID and State: [id number] / [employer] , Service support , Chest X-Ray 12/13/22 18:26 IMPRESSION: Poor inspiration with some bibasilar atelectasis. Electronically Signed: Sd Cade MD at 18:40 EDT Reading Location ID and State: [id number] / [employer] , Service support , Physical Exam Const alert, oriented x3, no apparent distress, average body habitus and healthy appearing General Appearance: cooperative, well kempt and well developed Orientation / Consciousness: awake, oriented to person, oriented to place and oriented to time HEENT normocephalic, head/scalp atraumatic and moist oral mucous membranes Eyes PERRL, EOMs intact bilaterally and conjunctivae normal Neck supple, no JVD, thyroid normal and no carotid bruits General: trachea midline Resp normal respiratory effort, no retractions, no use of accessory muscles and clear to auscultation bilaterally Auscultation: Negative for rales, rhonchi or wheezes Cardio regular rate, regular rhythm, S1 normal heart sound, S2 normal heart sound, no murmurs, no rub and no gallops GI normal to inspection, nondistended, normoactive bowel sounds, soft to palpation, non-tender and non-distended Extremity no clubbing, cyanosis or edema Skin no rashes or lesions noted General Skin Exam: no breakdown Neuro oriented x3, CN's II-XII intact bilaterally, moves all extremities, no focal motor deficits and no sensory deficits noted Sensorium / Orientation: awake, alert, oriented to person, oriented to place and oriented to time Speech: speech normal Psych affect normal Assessment & Plan Assessment/Plan (1) Encephalopathy acute: PLAN: Plan 1. Acute encephalopathy-probably secondary to medication usage, patient appears alert and oriented today and appears appropriate, she answers questions appropriately to this examiner. #2 acute debility-patient is being seen by PT and OT, she is consented to go to a nursing home facility for short-term rehab services. #3 essential hypertension-patient's remain on her present medications #4 chronic anemia-etiology unclear, will obtain a serum iron and TIBC #5 hypothyroidism-patient's remain on Synthroid #6 bipolar disorder-patient will continue on her psychiatric medications #7 hyperlipidemia-patient will remain on her statin Total clinical time spent by myself addressing the patient's medical issues, reviewing all of her data, and collaborating with patient's care team: 35 minutes Charges/Coding Visit Charges Inpatient E&M: 82519 Subs Hosp L2
[2022-12-14 19:36] VITALS: O2SAT 95
[2022-12-14 20:12] VITALS: BP 100/52; PULSE 64; RESP 16; TEMP 36.7; O2SAT 95
[2022-12-14] MEDS: Atorvastatin Calcium 20 MG Tablet PO (21:57)
[2022-12-14] MEDS: MELATONIN 3 MG TABLET PO (21:57)
[2022-12-14] MEDS: MELATONIN 10 MG TABLET 5 MG PO (21:58)
[2022-12-14 22:19] LABS: Bedside Glucose 123 mg/dL (74-106)
[2022-12-15 02:00] VITALS: O2SAT 94
[2022-12-15 02:06] VITALS: BP 149/73; PULSE 77; RESP 16; TEMP 36.8; O2SAT 94
[2022-12-15 05:04] VITALS: BMI 31.1
[2022-12-15] MEDS: Levothyroxine 125 MCG Tablet PO (06:26)
[2022-12-15 06:54] LABS: Bedside Glucose 97 mg/dL (74-106)
[2022-12-15 08:33] VITALS: BP 109/57; PULSE 74; RESP 16; TEMP 36.9; O2SAT 95
[2022-12-15] MEDS: Aspirin E.C. 81 MG Tablet PO (10:16)
[2022-12-15] MEDS: amLODIPine 5 MG Tablet PO (10:16)
[2022-12-15] MEDS: Pantoprazole Sodium 40 MG Tablet PO (10:16)
[2022-12-15] MEDS: Venlafaxine XR 37.5 MG Capsule PO (10:16)
[2022-12-15] MEDS: Losartan Potassium 100 MG Tablet PO (10:16)
[2022-12-15] MEDS: lamoTRIgine 150 MG Tablet PO (10:16)
[2022-12-15] MEDS: Meloxicam 7.5 MG Tablet PO (10:16)
[2022-12-15] MEDS: busPIRone 15 MG TABLET PO (10:16)
[2022-12-15] MEDS: OLANZapine 2.5 MG Tablet PO (10:16)
--- NOTE | 2022-12-15 11:26 | CASEMGMT ---
MINH spoke with Mary from [facility] and they received patient's pre-cert. MINH notified physician. Await orders. Plan: [facility] under skilled level of care. Rayna Johnson [employer]
--- NOTE | 2022-12-15 11:48 | TREXTCAR_ITS ---
Diet Diet Order/Speech Therapy: 12/13/22 22:53 Diet: Regular Food consistency:: Regular Liquid Consistency:: Regular/Thin How many daily calories?: Routine Orders/Code Status Code Status: Full Code Therapies Weight Bearing: Full weight bearing Physical Therapy: Eval and Treat Occupational Therapy: Eval and Treat Problem/Diagnosis (1) Encephalopathy acute: Status: Acute Code(s): G93.40 - Encephalopathy, unspecified Plan 1. Acute encephalopathy-probably secondary to medication usage, patient appears alert and oriented today and appears appropriate, she answers questions appropriately to this examiner. #2 acute debility-patient is being seen by PT and OT, she is consented to go to a nursing home facility for short-term rehab services. #3 essential hypertension-patient's remain on her present medications #4 chronic anemia-etiology unclear, will obtain a serum iron and TIBC #5 hypothyroidism-patient's remain on Synthroid #6 bipolar disorder-patient will continue on her psychiatric medications #7 hyperlipidemia-patient will remain on her statin Total clinical time spent by myself addressing the patient's medical issues, reviewing all of her data, and collaborating with patient's care team: 35 minutes Allergies/Procedures Done in Hospital Allergies codeine Adverse Reaction (Mild, Verified 12/13/22 17:08) Upset Stomach hydroxyzine HCl [From Vistaril] Adverse Reaction (Mild, Verified 12/13/22 17:08) Rash hydroxyzine pamoate [From Vistaril] Adverse Reaction (Mild, Verified 12/13/22 17:08) Rash Procedures: None Type of Care/Length of Stay Estimated LOS: Convalescent Care Less Than 30 days Type of Care Needed: Skilled Rehab Potential: Good Prognosis: Good Additional Orders/Day of Discharge H&P will serve as current which was dated: 12/13/22 Day of Discharge: 12/15/22 Discharge Plan Admission Admit Date/Time: 12/13/22 20:29 Primary Reason for Your Visit: Encephalopathy believed secondary to medication usage Attending Provider: Jeremie Hernández Primary Care Provider: Octavia Nichols Consulting Providers: Gabriela Barron Discharge Orders/Prescriptions Prescriptions: New amlodipine 5 mg Tablet 5 mg PO DAILY Qty: 0 0RF aspirin 81 mg Tablet,Delayed Release (Dr/Ec) 81 mg PO BREAKFAST Qty: 0 0RF Continued lamotrigine 150 MG tablet 150 mg PO DAILY olanzapine [Zyprexa] 2.5 MG tablet 2.5 mg PO QHS cholecalciferol (vitamin D3) [Vitamin D3] 1,000 UNIT capsule 2,000 unit PO DAILY Desvenlafaxine Succinate ER tablet 50 mg PO DAILY Omeprazole capsule 40 mg PO DAILY Crestor tablet 10 mg PO QHS Losartan Potassium tablet 100 mg PO DAILY buspirone 15 mg tablet 15 mg PO BID Rx Instructions: 1 tablet (15mg) QAM and 2 tablets (30mg) QHS melatonin 5 mg capsule 5 mg PO QHS meloxicam 7.5 mg tablet 7.5 mg PO BID Patient Comments: patient has only been taking 1/2 pill as needed levothyroxine 125 mcg tablet 125 mcg PO DAILY Discontinued calcium phosphate-vitamin D3 [Citracal-D3 Gummies] 1 EACH tablet,chewable 2 ea PO DAILY cranberry 500 MG capsule 1,200 mg PO BID Vit C/Ascorb Sod/Multivit-Min tablet 500 mg PO DAILY fesoterodine 8 mg tablet extended release 24 hr 8 mg PO DAILY vitamin E 268 mg (400 unit) capsule 268 mg PO QHS zinc acetate 50 mg PO DAILY Rx Instructions: orally; tizanidine 4 mg tablet 4 mg PO DAILY loratadine [Claritin] 10 mg tablet 10 mg PO DAILY PRN (Reason: allergy symptoms) acetaminophen 325 mg tablet 650 mg PO Q6H PRN (Reason: pain) No Action amlodipine 5 mg tablet 5 mg PO/SL DAILY aspirin 81 mg tablet 81 mg PO/SL DAILY Referrals / Follow Up: Octavia Nichols DO [Primary Care Provider] - Disposition Disposition (needs filled in before D/C Order can be placed): Residential Facility
--- NOTE | 2022-12-15 11:56 | PCM.DC.SUM ---
Providers Date of Admission: 12/13/22 Date of Discharge: 12/15/22 Primary Care Physician: Dr. Octavia Nichols DO Reason For Visit: ENCEPHALOPATHY, SEDATIVE MEDICATION SE, FALLS Diagnosis Discharge Diagnosis (1) Encephalopathy acute: Status: Acute Code(s): G93.40 - Encephalopathy, unspecified Plan 1. Acute encephalopathy-probably secondary to medication usage #2 acute debility-patient is being seen by PT and OT, she is consented to go to a [facility] facility for short-term rehab services. #3 essential hypertension-patient's remain on her present medications #4 chronic anemia-etiology unclear #5 hypothyroidism-patient's remain on Synthroid #6 bipolar disorder-patient will continue on her psychiatric medications #7 hyperlipidemia-patient will remain on her statin Total clinical time spent by myself addressing the patient's medical issues, reviewing all of her data, and collaborating with patient's care team: 35 minutes Medications at Discharge Home Medications lamotrigine 150 mg tablet 150 mg PO DAILY 01/24/16 cholecalciferol (vitamin D3) 25 mcg (1,000 unit) capsule (Vitamin D3) 2,000 unit PO DAILY 01/08/17 olanzapine 2.5 mg tablet (Zyprexa) 2.5 mg PO QHS 01/08/17 Crestor 10 mg PO QHS 07/15/20 Desvenlafaxine Succinate ER 50 mg PO DAILY 07/15/20 Losartan Potassium 100 mg PO DAILY 07/15/20 Omeprazole 40 mg PO DAILY 07/15/20 amlodipine 5 mg PO/SL DAILY 08/29/21 aspirin 81 mg PO/SL DAILY 08/29/21 buspirone 15 mg tablet 15 mg PO BID 12/13/22 levothyroxine 125 mcg tablet 125 mcg PO DAILY 12/13/22 melatonin 5 mg capsule 5 mg PO QHS 12/13/22 meloxicam 7.5 mg tablet 7.5 mg PO BID 12/13/22 amlodipine 5 mg tablet 5 mg PO DAILY #0 tabs 12/15/22 aspirin 81 mg tablet,delayed release 81 mg PO BREAKFAST #0 tabs 12/15/22 Hospital Course Operations None Procedures None Summary of Care Provided Minutes Spent on Discharge: 31 Hospital Course: This 77-year-old white female was seen in the emergency room at [facility] after being brought in by her family for evaluation of generalized weakness and confusion at home. Patient had been taking a muscle relaxant for neck pain, she stated that she fell approximately 4 times over the past week. Work-up in the emergency room included labs and imaging studies which were unremarkable for acute traumatic, metabolic, and infectious abnormalities. Patient's daughter was uncomfortable with the patient being discharged home, [facility] and was seen by PT and OT. Her muscle relaxant was held, patient agreed to temporary placement in a [facility] facility for temporary inpatient rehab services. Arrangements were made for the patient to go to [facility] for rehab services. On 12/15/2022, patient was seen and examined: On examination she appeared in good health and spirits, she does not appear to be in any distress. Vital signs as documented. Skin warm and dry and without overt rashes. Neck without JVD, thyroid appears normal, trachea is midline, neck is supple. Lungs clear, normal air movement was noted. Heart exam notable for regular rhythm, normal sounds and absence of murmurs, rubs or gallops. Abdomen unremarkable and without evidence of organomegaly, masses, or abdominal aortic enlargement, bowel sounds are present in all 4 quadrants, no abdominal tenderness was noted. Extremities nonedematous, no cyanosis was noted, no clubbing was noted. Neuro: Cranial nerves II through XII are grossly intact, no focal motor deficits were noted, sensation to light touch and pinprick is intact, motor exam 5/5 throughout. Psych: Patient is alert and oriented x3, she does not appear anxious or depressed, she does not appear agitated. Patient appears stable for discharge to an extended care facility for short-term rehab services on 12/15/2022. Weight / BMI Weight Weight: 77.3 kg Body Mass Index (BMI) 31.1 ABG / Lab / Microbiology Data 12/14/22 05:13 12/14/22 05:13 Laboratory: Laboratory Results - last 24 hr 12/14/22 16:55: POC Glucose 129 H 12/14/22 21:56: POC Glucose 123 H 12/15/22 06:23: POC Glucose 97 Meaningful Use Info Meaningful Use Diagnoses (Choose all that apply): None applicable Discharge Plan Admission Admit Date/Time: 12/13/22 20:29 Primary Reason for Your Visit: Encephalopathy believed secondary to medication usage Attending Provider: Jeremie Hernández Primary Care Provider: Octavia Nichols Consulting Providers: Gabriela Barron Discharge Orders/Prescriptions Prescriptions: New amlodipine 5 mg Tablet 5 mg PO DAILY Qty: 0 0RF aspirin 81 mg Tablet,Delayed Release (Dr/Ec) 81 mg PO BREAKFAST Qty: 0 0RF Continued lamotrigine 150 MG tablet 150 mg PO DAILY olanzapine [Zyprexa] 2.5 MG tablet 2.5 mg PO QHS cholecalciferol (vitamin D3) [Vitamin D3] 1,000 UNIT capsule 2,000 unit PO DAILY Desvenlafaxine Succinate ER tablet 50 mg PO DAILY Omeprazole capsule 40 mg PO DAILY Crestor tablet 10 mg PO QHS Losartan Potassium tablet 100 mg PO DAILY buspirone 15 mg tablet 15 mg PO BID Rx Instructions: 1 tablet (15mg) QAM and 2 tablets (30mg) QHS melatonin 5 mg capsule 5 mg PO QHS meloxicam 7.5 mg tablet 7.5 mg PO BID Patient Comments: patient has only been taking 1/2 pill as needed levothyroxine 125 mcg tablet 125 mcg PO DAILY Discontinued calcium phosphate-vitamin D3 [Citracal-D3 Gummies] 1 EACH tablet,chewable 2 ea PO DAILY cranberry 500 MG capsule 1,200 mg PO BID Vit C/Ascorb Sod/Multivit-Min tablet 500 mg PO DAILY fesoterodine 8 mg tablet extended release 24 hr 8 mg PO DAILY vitamin E 268 mg (400 unit) capsule 268 mg PO QHS zinc acetate 50 mg PO DAILY Rx Instructions: orally; tizanidine 4 mg tablet 4 mg PO DAILY loratadine [Claritin] 10 mg tablet 10 mg PO DAILY PRN (Reason: allergy symptoms) acetaminophen 325 mg tablet 650 mg PO Q6H PRN (Reason: pain) No Action amlodipine 5 mg tablet 5 mg PO/SL DAILY aspirin 81 mg tablet 81 mg PO/SL DAILY Referrals / Follow Up: Octavia Nichols DO [Primary Care Provider] - Disposition Disposition (needs filled in before D/C Order can be placed): [facility] Charges/Coding Visit Charges Inpatient E&M: 10229 Disch Hosp >30min
[2022-12-15 12:00] LABS: Bedside Glucose 84 mg/dL (74-106)
[2022-12-15 13:10] VITALS: O2SAT 94
--- NOTE | 2022-12-15 13:32 | CASEMGMT ---
Addendum entered by Rayna Johnson 12/15/22 13:46: COVID test sent to [facility] via [facility]. SW also notified [place] at [facility] that family will be bringing patient. Rayna JIMENEZ Original Note: Patient is ready for discharge. SW sent orders to [facility] via [facility]. SW spoke with patient and her family will transport her via private vehicle. SW will send COVID test to [facility] once completed. PASRR was done in [facility] system. All in agreement with discharge plan. Plan: d/c to [facility] under skilled level of care on a PASRR. Family will transport patient via private vehicle. Rayna JIMENEZ
[2022-12-15 14:02] VITALS: BP 99/54; PULSE 67; RESP 16; TEMP 36.8; O2SAT 95
--- NOTE | 2022-12-16 12:41 | CASEMGMT ---
Social Work Discharge information faxed to pts [facility] Miley Mitchell. JEREMIAH Machuca
--- NOTE | 2022-12-16 13:55 | CASEMGMT ---
TC from Radha Walters CM from [facility] requesting pt dc summary be faxed to [phone]. Faxed at this time.
== END 2022-12-15 14:17 | disposition skilled nursing facility (03) ==
LOC: ED 19:45 → MS3 21:11
PROVIDERS: Admitting Provider Family Medicine; Emergency Provider Emergency Medicine; PCP Internal Medicine; Referring Provider Family Medicine; Visit Provider Internal Medicine
DX: G93.40 Encephalopathy, unspecified (principal); F31.9 Bipolar disorder, unspecified; E66.01 Morbid (severe) obesity due to excess calories; Z68.41 Body mass index [BMI] 40.0-44.9, adult; E11.9 Type 2 diabetes mellitus without complications; F41.9 Anxiety disorder, unspecified; E03.9 Hypothyroidism, unspecified; E87.1 Hypo-osmolality and hyponatremia; K21.9 Gastro-esophageal reflux disease without esophagitis; I10 Essential (primary) hypertension; E78.5 Hyperlipidemia, unspecified; D64.9 Anemia, unspecified; R26.9 Unspecified abnormalities of gait and mobility; Z79.899 Other long term (current) drug therapy; Z79.82 Long term (current) use of aspirin; Z79.890 Hormone replacement therapy; R29.6 Repeated falls
CPT/HCPCS: 36415; 70450; 71045; 72125; 80048; 80053; 80307; 80329; 81001; 82077; 82962; 83036; 84145; 84439; 84443; 84481; 85025; 87426; 93005; 94668; 96360; 96361; 97162; 97166; 97530; 97535; 99221; 99284; J7030; A4216; G0378; G0480

== ENCOUNTER → 2023-02-08 | Outpatient (CLI) | payer MEDICARE, MEDICAID, SELFPAY ==
--- NOTE | 2023-02-08 08:29 | BI_ITS ---
MAMMOGRAPHY - BILATERAL SCREENING REASON FOR EXAM: Female, 78 years old. Routine annual screening examination. PERTINENT HISTORY: Aunt with breast cancer. Remote right excisional breast biopsy. TECHNIQUE: Digital bilateral breast javier (3D mammographic acquisition) in the CC and MLO projections. 2-D mediolateral oblique (MLO) and craniocaudad (CC) views of both breasts were obtained. CAD: Full Field Digital Mammography with Computer Added Detection was performed. COMPARISON: Comparison is made with prior examination dated December 31, 2021 and December 27, 2020. FINDINGS: Breast Composition: The breasts are almost entirely fatty. There are no dominant masses or suspicious calcifications. Stable bilateral secretory calcifications. No focal cluster is seen. No other significant abnormalities are identified. There has been no significant change since the prior study. BI/SCRN MAMM (CAD)W/JAVIER BILAT IMPRESSION: Stable bilateral screening mammogram. Yearly follow-up mammogram recommended. (A) ASSESSMENT CATEGORY: BIRADS Category 2: Benign. A letter regarding these results will be sent to the patient by the facility within 30 days. Approximately 10% of breast cancers are not detected by mammography. A normal mammogram should not delay biopsy of a clinically suspicious abnormality. [id number] Electronically Signed: Suleman Chan MD at 13:43 EDT ,
== END | disposition home or self-care (01) ==
LOC: OPBI 08:28
PROVIDERS: PCP Internal Medicine; Referring Provider Internal Medicine; Visit Provider Internal Medicine
DX: Z12.31 Encounter for screening mammogram for malignant neoplasm of breast (principal); Z80.3 Family history of malignant neoplasm of breast
CPT/HCPCS: 77063; 77067

== ENCOUNTER 2023-02-28 17:05 | Emergency (ER) | payer MEDICARE, MEDICAID, SELFPAY ==
[2023-02-28 17:06] VITALS: BP 150/88; PULSE 94; RESP 16; RESP 18; TEMP 36.8; O2SAT 96; BMI 30.3
--- NOTE | 2023-02-28 17:17 | CT_ITS ---
STUDY: CT BRAIN WITHOUT CONTRAST REASON FOR EXAM: Female, 78 years old. fall, head injury Individualized dose optimization techniques were used for this CT. TECHNIQUE: Transaxial CT imaging of the brain was performed without administration of intravenous contrast material. COMPARISON: None FINDINGS: There are calcifications noted in the distal vertebral arteries. There are calcifications noted in the cavernous carotid arteries. This is consistent for atherosclerotic disease. Normal calvarium. There is no underlying fracture. Soft tissue swelling of the scalp- left forehead. 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 There is mild cerebral atrophy with widening of the extra-axial spaces and ventricular dilatation. There are areas of decreased attenuation within the white matter tracts of the supratentorial brain, consistent with microvascular disease changes. Normal basal ganglia and thalami. Normal brainstem. There is mild cerebellar atrophy. There is no intracranial hemorrhage. There are no findings of an acute ischemic infarction. Normal visualized paranasal sinuses. ASPECTS Score for Acute Strokes: 02/23 CT/Brain/Head without Contrast IMPRESSION: Soft tissue swelling of the scalp- left forehead. Chronic involutional changes of the brain. Electronically Signed: Jose Reno MD at 18:05 EDT ,
--- NOTE | 2023-02-28 17:17 | CT_ITS ---
EXAM: CT SPINE - CERVICAL WITHOUT IV REASON FOR EXAM: Female, 78 years old. NECK PAIN head injury HISTORY: NECK PAIN head injury Individualized dose optimization techniques were used for this CT. TECHNIQUE: Multiplanar images were obtained of the cervical spine. IV contrast was not utilized. COMPARISON: None. FINDINGS: The vertebral bodies do maintain their height. The odontoid process is intact. No pre-vertebral soft tissue swelling is seen. The intravertebral disc height is lost. There are scattered lymph nodes in the neck. There are degenerative changes of the osseous structures. There is bilateral facet arthropathy. There are scattered levels of foraminal stenosis. There are vascular calcifications. CT/Spine Cervical without Contras IMPRESSION: Degenerative changes of the cervical spine. There are no acute findings. Electronically Signed: Jose Reno MD at 18:06 EDT ,
--- NOTE | 2023-02-28 17:25 | EDS_ITS ---
HPI <MORENA Hawkins - Last Filed: 02/28/23 20:11> History of Present Illness Chief Complaint: Fall Narrative Narrative: Patient presenting today due to a fall that occurred this afternoon. She reports that she was walking into [facility] with a tray of food in her hands, she normally uses a cane to ambulate but she tripped over the sidewalk and fell hitting her head on the ground. She denies any loss of consciousness. She reports that she does have a headache and feels nauseous but thinks that the nausea is from the ambulance ride. She has an abrasion to her left wrist without any pain to the left wrist. She denies any other injury. She denies any pain to her neck or back. She is not on any blood thinners. [facility] <MORENA Hawkins - Last Filed: 02/28/23 20:11> [facility] Medical History Anxiety and depression Bipolar 1 disorder GERD (gastroesophageal reflux disease) History of small bowel obstruction HTN (hypertension) Hyperlipemia Morbid obesity Type II diabetes mellitus Home Medications lamotrigine 150 mg tablet 150 mg PO DAILY 01/24/16 [History Last Taken 12/12/22 21:00] cholecalciferol (vitamin D3) 25 mcg (1,000 unit) capsule (Vitamin D3) 2,000 unit PO DAILY 01/08/17 [History Last Taken 12/13/22 09:00] olanzapine 2.5 mg tablet (Zyprexa) 2.5 mg PO QHS 01/08/17 [History Last Taken 12/12/22] Crestor 10 mg PO QHS 07/15/20 [History Last Taken 12/12/22] Desvenlafaxine Succinate ER 50 mg PO DAILY 07/15/20 [History Last Taken 12/13/22 09:00] Losartan Potassium 100 mg PO DAILY 07/15/20 [History Last Taken 12/13/22 09:00] Omeprazole 40 mg PO DAILY 07/15/20 [History Last Taken 12/13/22 09:00] amlodipine 5 mg PO/SL DAILY 08/29/21 [History Last Taken Unknown] aspirin 81 mg PO/SL DAILY 08/29/21 [History Last Taken 12/13/22 09:00] buspirone 15 mg tablet 15 mg PO BID 12/13/22 [History Last Taken 12/13/22 09:00] levothyroxine 125 mcg tablet 125 mcg PO DAILY 12/13/22 [History Last Taken 12/13/22 07:00] melatonin 5 mg capsule 5 mg PO QHS 12/13/22 [History Last Taken 12/12/22] meloxicam 7.5 mg tablet 7.5 mg PO BID 12/13/22 [History Last Taken 12/13/22 09:00] amlodipine 5 mg tablet 5 mg PO DAILY #0 tabs 12/15/22 [Rx Last Taken Unknown] aspirin 81 mg tablet,delayed release 81 mg PO BREAKFAST #0 tabs 12/15/22 [Rx Last Taken Unknown] acetaminophen 325 mg capsule 325 mg PO ONCE PRN pain #90 caps 01/19/23 [Rx Last Taken Unknown] Allergy/AdvReac Type Severity Reaction Status Date / Time codeine AdvReac Mild Upset Verified 12/13/22 17:08 Stomach hydroxyzine HCl AdvReac Mild Rash Verified 12/13/22 17:08 [From Vistaril] hydroxyzine pamoate AdvReac Mild Rash Verified 12/13/22 17:08 [From Vistaril] Family History Mother Hypertension Diabetes Father Prostate cancer Sister Hypertension Grandmother Heart disease Surgical History H/O umbilical hernia repair History of bilateral hip replacements History of herniorrhaphy History of lithotripsy S/P breast biopsy, right Status post thyroid surgery Social History household members: spouse Smoking Status: Never smoker alcohol intake: never substance use type: does not use ROS <MORENA Hawkins - Last Filed: 02/28/23 20:11> ROS ED Constitutional Constitutional ED: Denies chills or fever(s) Eyes Eyes: Denies change in vision Cardiovascular Cardiovascular: Denies chest pain or palpitations Respiratory/Chest Respiratory/Chest: Denies cough or dyspnea Gastrointestinal Gastrointestinal: Reports nausea; Denies abdominal pain or vomiting Musculoskeletal Musculoskeletal: Denies arthralgias, back pain, myalgias or neck pain Integumentary Reports Abrasions Neurologic Neurologic: Reports headache(s); Denies weakness EXAM <MORENA Hawkins Last Filed: 02/28/23 20:11> Physical Exam Const Vital Signs: 02/28/23 17:06 02/28/23 17:06 02/28/23 17:06 Temperature 98.3 F Temperature Source Temporal Pulse Rate 94 94 Respiratory Rate 16 18 Respiratory Effort Normal Respiratory Depth Normal Respiratory Pattern Normal Blood Pressure 150/88 H 150/88 H Blood Pressure Mean 108 108 Pulse Ox 96 96 Oxygen Delivery Method Room Air Room Air Room Air Oxygen Flow Rate (L/min) 96 Positive well nourished, well developed and no apparent distress General Appearance ED: well developed HEENT Reports normocephalic and head/scalp atraumatic HEENT Narrative: Moderate-sized hematoma to the left forehead. Mouth ED: Yes moist mucous membranes normal Eyes PERRL and EOMs intact bilaterally Neck full ROM and supple Chest Wall inspection of chest normal Resp normal respiratory effort and clear to auscultation bilaterally Cardio regular rate and regular rhythm GI soft to palpation, non-tender, non-distended and no masses Back/Spine normal ROM and normal to inspection Extremity normal to inspection and full ROM Extremity Narrative: Small abrasion to the ulnar aspect of the left wrist without any pain to palpation to the wrist. Full range of motion to the left wrist. Neuro oriented x3, CN's II-XII intact bilaterally, moves all extremities, no focal motor deficits and no sensory deficits noted Sensorium / Orientation: awake and alert Psych mental status grossly normal and thought process normal Skin no rashes or lesions noted and no wounds <Dr. Haseeb Hyatt, - Last Filed: 02/28/23 18:21> Physical Exam Const Vital Signs: 02/28/23 17:06 02/28/23 17:06 02/28/23 17:06 Temperature 98.3 F Temperature Source Temporal Pulse Rate 94 94 Respiratory Rate 16 18 Respiratory Effort Normal Respiratory Depth Normal Respiratory Pattern Normal Blood Pressure 150/88 H 150/88 H Blood Pressure Mean 108 108 Pulse Ox 96 96 Oxygen Delivery Method Room Air Room Air Room Air Oxygen Flow Rate (L/min) 96 MDM <MORENA Hawkins Last Filed: 02/28/23 20:11> [facility] MDM Narrative Medical decision making narrative: Patient presenting due to a mechanical fall that occurred this afternoon. She is well-appearing and in no acute distress. She does have a moderate-sized hematoma to her left forehead from hitting her head on concrete. Head CT will be obtained to rule out intracranial bleed, cervical CT to rule out neck fracture. CTs are negative for any acute findings. She has been instructed to ice her forehead several times a day for the next few days, follow-up with her PCP, and has been given return instructions. She will be discharged home in stable condition and is comfortable with plan. Radiography Diagnostic Testing: Clinical Impression(s) from Imaging Studies Brain CT 02/28/23 17:17 IMPRESSION: Soft tissue swelling of the scalp- left forehead. Chronic involutional changes of the brain. Electronically Signed: Jose Reno MD at 18:05 EDT , Cervical Spine CT 02/28/23 17:17 IMPRESSION: Degenerative changes of the cervical spine. There are no acute findings. Electronically Signed: Jose Reno MD at 18:06 EDT , <Dr. Haseeb Hyatt, DO - Last Filed: 02/28/23 18:21> MDM Radiography Diagnostic Testing: Clinical Impression(s) from Imaging Studies Brain CT 02/28/23 17:17 IMPRESSION: Soft tissue swelling of the scalp- left forehead. Chronic involutional changes of the brain. Electronically Signed: Jose Reno MD at 18:05 EDT , Cervical Spine CT 02/28/23 17:17 IMPRESSION: Degenerative changes of the cervical spine. There are no acute findings. Electronically Signed: Jose Reno MD at 18:06 EDT , Treatment and Re-Evaluation Narrative: I have personally performed a face to face assessment of the patient and have reviewed the FARHAT Note. I performed a substantive portion of the visit including all aspects of the following. My frankel findings include: History is fall striking head injuring left wrist. She notes the left wrist is not painful and she is moving it normally. She notes superficial abrasions. No loss of consciousness. No vomiting. She does note a headache. Exam is superficial abrasions and some mild contusion is noted over the medial dorsum of the left wrist. There is a left forehead hematoma with abrasion. No palpable bony depressions. Neurologically the patient appears intact. Medical Decison Making: CT of the brain and cervical spine was negative for intracranial hemorrhage or acute fracture. Soft tissue injury noted. Patient received Tylenol for headache. Recommend continued supportive care return if worsening or concerns Discharge Plan Triage Chief Complaint: Fall ED Midlevel Provider: Melony Rider ED Provider: Haseeb Hyatt Dx/Rx/DC Orders Clinical Impression: Facial hematoma, Head injury, Fall Instructions: ED Head Injury (Adult), ED Hematoma Prescriptions: No Action lamotrigine 150 MG tablet 150 mg PO DAILY olanzapine [Zyprexa] 2.5 MG tablet 2.5 mg PO QHS cholecalciferol (vitamin D3) [Vitamin D3] 1,000 UNIT capsule 2,000 unit PO DAILY Desvenlafaxine Succinate ER tablet 50 mg PO DAILY Omeprazole capsule 40 mg PO DAILY Crestor tablet 10 mg PO QHS Losartan Potassium tablet 100 mg PO DAILY amlodipine 5 mg tablet 5 mg PO/SL DAILY aspirin 81 mg tablet 81 mg PO/SL DAILY buspirone 15 mg tablet 15 mg PO BID Rx Instructions: 1 tablet (15mg) QAM and 2 tablets (30mg) QHS melatonin 5 mg capsule 5 mg PO QHS meloxicam 7.5 mg tablet 7.5 mg PO BID Patient Comments: patient has only been taking 1/2 pill as needed levothyroxine 125 mcg tablet 125 mcg PO DAILY amlodipine 5 mg Tablet 5 mg PO DAILY Qty: 0 0RF aspirin 81 mg Tablet,Delayed Release (Dr/Ec) 81 mg PO BREAKFAST Qty: 0 0RF acetaminophen 325 mg capsule 325 mg PO ONCE PRN (Reason: pain) Qty: 90 3RF Rx Instructions: PRN every 6 hours as needed for pain Primary Care Provider: Octavia Nichols Referrals: Octavia Nichols DO [Primary Care Provider] - 5-7 Days Activity Restrictions/Additional Instructions: Please follow-up with your PCP, ice her forehead several times a day for the next few days for about 20 minutes at a time. You can take Tylenol for your pain as needed. Return for any worsening of your symptoms. Disposition Disposition: Home, Self Care Discharge Date/Time: 02/28/23 18:20
[2023-02-28] MEDS: Ondansetron ODT 4 MG Tablet PO (17:26)
[2023-02-28] MEDS: Acetaminophen 325 MG Tablet 650 MG PO (18:04)
== END 2023-02-28 18:20 | disposition home or self-care (01) ==
PROVIDERS: Emergency Provider Emergency Medicine; PCP Internal Medicine; Visit Provider Emergency Medicine
DX: S00.83XA Contusion of other part of head, initial encounter (principal); F31.9 Bipolar disorder, unspecified; E11.9 Type 2 diabetes mellitus without complications; I10 Essential (primary) hypertension; E78.5 Hyperlipidemia, unspecified; S09.90XA Unspecified injury of head, initial encounter; W10.1XXA Fall (on)(from) sidewalk curb, initial encounter; Y92.22 Religious institution as the place of occurrence of the external cause; Z79.899 Other long term (current) drug therapy; F41.8 Other specified anxiety disorders; K21.9 Gastro-esophageal reflux disease without esophagitis; Z79.82 Long term (current) use of aspirin; Z96.643 Presence of artificial hip joint, bilateral
CPT/HCPCS: 70450; 72125; 99285

== ENCOUNTER 2023-04-01 11:27 | Emergency (ER) | payer MEDICARE, MEDICAID, SELFPAY ==
[2023-04-01 11:28] VITALS: BP 170/93; PULSE 86; RESP 15; TEMP 36.2; O2SAT 97; BMI 30.9
--- NOTE | 2023-04-01 11:57 | EKG12_ITS ---
Test Reason : CHST TIGHTNESS Blood Pressure : / mmHG Vent. Rate : 076 BPM Atrial Rate : 076 BPM P-R Int : 172 ms QRS Dur : 100 ms QT Int : 402 ms P-R-T Axes : 035 -26 018 degrees QTc Int : 452 ms Normal sinus rhythm Normal ECG Confirmed by TARAH FLORES, AMARA ([id number]), video tape editor JALEEL MCCRACKEN ([id number]) on 04/07/2023 11:55:05 AM Referred By: Confirmed By:AMARA RASCON MD
--- NOTE | 2023-04-01 11:58 | EX.ED.DYSGE1 ---
HPI History of Present Illness Chief Complaint: Hypertension Narrative Narrative: 78-year-old female past medical history of anxiety, hypertension, presents with multiple somatic complaints at the direction of her home health care nurse and primary care provider. She relates history that yesterday she awoke with chest pressure and pressure in her head. She took her antihypertensive medications. She states that her blood pressure was elevated at 170 systolic. Last evening after she had gone about her day, she became nauseated and vomited once without any blood in her emesis. She denies any abdominal pain, or other symptoms. However, she had called her home health nurse yesterday who told her to come to the emergency department for evaluation. She decided not to come yesterday, but when she was evaluated by her home health nurse today, her blood pressure was elevated again, and they called Dr. Garcia, who recommended that she come to the emergency department for evaluation. She states her head pressure has improved, but she still gets nauseated and she is having chest pressure that has been constant since yesterday. No fevers or chills, no cough, no other symptoms than the aforementioned. [facility] Medical History Anxiety and depression Anxiety disorder, unspecified Bipolar 1 disorder GERD (gastroesophageal reflux disease) History of small bowel obstruction HTN (hypertension) Hyperlipemia Morbid obesity Schizoaffective disorder Type II diabetes mellitus Home Medications lamotrigine 150 mg tablet 150 mg PO QHS 01/24/16 [History Last Taken 12/12/22 21:00] cholecalciferol (vitamin D3) 25 mcg (1,000 unit) capsule (Vitamin D3) 2,000 unit PO DAILY 01/08/17 [History Last Taken 12/13/22 09:00] Desvenlafaxine Succinate ER 50 mg PO DAILY 07/15/20 [History Last Taken 12/13/22 09:00] Losartan Potassium 100 mg PO DAILY 07/15/20 [History Last Taken 12/13/22 09:00] Omeprazole 40 mg PO DAILY 07/15/20 [History Last Taken 12/13/22 09:00] melatonin 5 mg capsule 5 mg PO QHS 12/13/22 [History Last Taken 12/12/22] aspirin 81 mg tablet,delayed release 81 mg PO BREAKFAST #0 tabs 12/15/22 [Rx Last Taken Unknown] atorvastatin 20 mg tablet 20 mg PO QHS 03/04/23 [History Last Taken Unknown] fesoterodine 8 mg tablet,extended release 24 hr 8 mg PO DAILY 03/04/23 [History Last Taken Unknown] levothyroxine 137 mcg tablet 137 mcg PO DAILY 03/04/23 [History Last Taken Unknown] multivitamin-ferrous fumarate-folic acid 18 mg-400 mcg tablet (Certavite-Antioxidant) 1 tab PO DAILY 03/04/23 [History Last Taken Unknown] vitamin E (dl, acetate) 180 mg (400 unit) capsule 360 mg PO DINNER 03/04/23 [History Last Taken Unknown] ascorbate calcium (vitamin C) 500 mg tablet 500 mg PO DAILY 03/25/23 [History Last Taken Unknown] buspirone 15 mg tablet 15 mg PO BID 03/25/23 [History Last Taken Unknown] olanzapine 2.5 mg tablet 2.5 mg PO QHS 03/25/23 [History Last Taken Unknown] Allergy/AdvReac Type Severity Reaction Status Date / Time codeine AdvReac Mild Upset Verified 03/25/23 07:39 Stomach hydroxyzine HCl AdvReac Mild Rash Verified 03/25/23 07:39 [From Vistaril] hydroxyzine pamoate AdvReac Mild Rash Verified 03/25/23 07:39 [From Vistaril] Family History Mother Hypertension Diabetes Father Prostate cancer Sister Hypertension Grandmother Heart disease Surgical History H/O umbilical hernia repair History of bilateral hip replacements History of herniorrhaphy History of lithotripsy S/P breast biopsy, right Status post thyroid surgery Social History household members: spouse Smoking Status: Never smoker alcohol intake: never substance use type: does not use ROS ROS ED ROS Narrative Constitutional: No fever, no chills. HEENT: No sore throat. No neck pain. No loss of vision. No rhinorrhea. Cardiovascular: Positive chest pain. No palpitations. No pedal edema. Respiratory: No cough, no shortness of breath. Abdominal: No abdominal pain. Positive nausea, 1 episode of vomiting without hematemesis yesterday. Genitourinary: No dysuria. No hematuria. Musculoskeletal: No myalgias. No arthralgias. Neurologic: Head pressure/headaches. No dizziness. No lightheadedness. Skin: No rash. No change in color. Psychiatric: No depression. No anxiety. EXAM Physical Exam Narrative Exam Narrative: Afebrile. Vital signs noted. HEENT: Normocephalic. Atraumatic. PERRL, EOMI. Neck soft and supple. No point tenderness or step off. Cardiovascular: Regular rate and rhythm. No murmurs, rubs, or gallops appreciated. Respiratory: No tachypnea. Lungs clear to auscultation bilaterally. Gastrointestinal: Abdomen soft, nontender, with normoactive bowel sounds. No rebound or guarding. Neurological: Awake. Alert. Nonfocal, nonlateralizing. Skin: No rash. Normal color. No pallor. Musculoskeletal: No pedal edema. Full range of motion extremities. Const Vital Signs: 04/01/23 11:28 04/01/23 11:45 04/01/23 12:05 Temperature 97.1 F L Temperature Source Oral Pulse Rate 86 Respiratory Rate 15 Respiratory Effort Normal Non-Labored Respiratory Pattern Normal Blood Pressure 170/93 H Blood Pressure Mean 118 Pulse Ox 97 Oxygen Delivery Method Room Air Room Air 04/01/23 13:27 Temperature Temperature Source Pulse Rate 78 Respiratory Rate 18 Respiratory Effort Respiratory Pattern Blood Pressure 110/78 Blood Pressure Mean 88 Pulse Ox Oxygen Delivery Method Room Air MDM MDM MDM Narrative Medical decision making narrative: Comprehensive work-up was pursued. Regarding her elevated blood pressure, currently it is in the 120 systolic on the bus monitor during examination. Given her headaches and hypertension concern would be for hypertensive bleed. I will obtain CT imaging. Chest pain work-up was pursued otherwise. She states she had nausea but she has this listed as a chronic problem. She was given Zofran. Also there may be some anxiety component to this. I will obtain a lipase to rule out pancreatitis. I do feel that she requires serial troponins as well along with EKG and chest x-ray. EKG was obtained and interpreted by myself independently as normal sinus rhythm at 76 bpm without ectopy or acute ST changes. No STEMI. I reviewed her laboratory work and she has normal white count of 8.3, hemoglobin normal at 13.2, platelet count normal at 280. Electrolyte panel shows normal sodium of 139 with potassium normal at 4.0, BUN normal at 15 with creatinine 0.80. Glucose is appropriately elevated at 107 with a normal anion gap of 8, LFTs are unremarkable. Lipase normal at 27. Initial high-sensitivity troponin is 10 with repeated 2 hours also being 10. I do feel that she has been ruled out for cardiac ischemia with biomarkers. Chest x-ray in 1 view interpreted by myself independently shows no evidence of pneumothorax or pneumonia. I do not feel antibiotics are indicated. I reviewed the radiology report which confirms my independent interpretation. Additionally, I reviewed the CT report of the CT of the brain which shows no evidence of an acute intracranial hemorrhage. Her blood pressure is normalized and is currently 110/78 and she has had multiple readings that do not show elevated blood pressure. At this point in time, I feel she can be discharged to follow-up with her primary care provider. Patient feels well and would like to be discharged. Return instructions to the emergency department were reviewed. Disposition is discharged home in stable condition. History & Record Review Discussion w/independent historian: Patient Additional record(s) reviewed:: Prior ED visit and Prior labs Lab Data Attestation: I reviewed the patient's lab results. Labs: Laboratory Results - last 24 hr 04/01/23 04/01/23 12:03 14:05 WBC 8.3 RBC 5.06 Hgb 13.2 Hct 42.2 MCV 83.4 MCH 26.1 L MCHC 31.3 L RDW Std Deviation 43.9 RDW Coeff of Tabby 14.5 Plt Count 280 MPV 10.1 Immature Gran % (Auto) 0.700 Neut % (Auto) 63.2 Lymph % (Auto) 23.6 Loup % (Auto) 10.4 H Eos % (Auto) 1.6 Baso % (Auto) 0.5 Absolute Neuts (auto) 5.2 Absolute Lymphs (auto) 1.95 Nucleated RBC % 0 Sodium 139 Potassium 4.0 Chloride 104 Carbon Dioxide 27.0 Anion Gap 8 BUN 15 Creatinine 0.80 Estim Creat Clear Calc 44.44 Est GFR (MDRD) Af Amer 89 Est GFR (MDRD) Non-Af 74 BUN/Creatinine Ratio 18.7 Glucose 107 H Calcium 9.6 Total Bilirubin 0.50 AST 25 ALT 28 Alkaline Phosphatase 75 Troponin I High Sens 10 10 Total Protein 7.8 Albumin 3.8 Globulin 4.0 Albumin/Globulin Ratio 1.0 Lipase 27 Radiography Diagnostic Testing: Clinical Impression(s) from Imaging Studies Brain CT 04/01/23 12:02 IMPRESSION: Chronic involutional changes of the brain. Electronically Signed: Suleman Chan MD at 12:33 EST , Chest X-Ray 04/01/23 12:15 IMPRESSION: Stable examination. Electronically Signed: Suleman Chan MD at 12:34 EST , Differential Diagnosis Differential Diagnosis: Hypertensive intracranial hemorrhage, hypertensive urgency, acute coronary syndrome with cardiac ischemia, pancreatitis, chronic nausea. Discharge Plan Triage Chief Complaint: Hypertension ED Provider: Lito Guillen Dx/Rx/DC Orders Clinical Impression: Transient elevated blood pressure, Pressure in head, Chest pain, Nausea Instructions: ED Chest Pain, Uncertain Cause, ED High Blood Pressure Hypertension, ED Pain, Acute, Uncertain Cause Prescriptions: No Action levothyroxine 137 mcg tablet 137 mcg PO DAILY atorvastatin 20 mg tablet 20 mg PO QHS vitamin E (dl, acetate) 180 mg (400 unit) capsule 360 mg PO DINNER Certavite-Antioxidant 18-400 mg-mcg tablet 1 tab PO DAILY fesoterodine 8 mg tablet extended release 24 hr 8 mg PO DAILY olanzapine 2.5 mg tablet 2.5 mg PO QHS ascorbate calcium (vitamin C) 500 mg tablet 500 mg PO DAILY lamotrigine 150 MG tablet 150 mg PO QHS cholecalciferol (vitamin D3) [Vitamin D3] 1,000 UNIT capsule 2,000 unit PO DAILY Desvenlafaxine Succinate ER tablet 50 mg PO DAILY Omeprazole capsule 40 mg PO DAILY Losartan Potassium tablet 100 mg PO DAILY melatonin 5 mg capsule 5 mg PO QHS aspirin 81 mg Tablet,Delayed Release (Dr/Ec) 81 mg PO BREAKFAST Qty: 0 0RF buspirone 15 mg tablet 15 mg PO BID Primary Care Provider: Kiara Garcia Referrals: Kiara Garcia, DO [Primary Care Provider] - 3-5 Days if not improving Disposition Disposition: Home, Self Care
--- NOTE | 2023-04-01 12:02 | CT_ITS ---
STUDY: CT BRAIN WITHOUT CONTRAST REASON FOR EXAM: Female, 78 years old. Hypertensive headache RADIATION DOSAGE (If Supplied By Facility): CTDIvol = ( 44.99 ) mGy, DLP = ( 796.11 ) mGycm TECHNIQUE: Transaxial CT imaging of the brain was performed without administration of intravenous contrast material. Individualized dose optimization techniques were used for this CT. COMPARISON: Comparison is made with prior study dated February 28, 2023. FINDINGS: Normal soft tissue structures. Normal calvarium. There is mild cerebral atrophy with widening of the extra-axial spaces and ventricular dilatation. There are areas of decreased attenuation within the white matter tracts of the supratentorial brain, consistent with microvascular disease changes. There are small punctate calcifications of the basal ganglia which are seen in the aging brain as a normal variant. Normal brainstem. Normal cerebellum. There is no intracranial hemorrhage. There are no findings of an acute ischemic infarction. Atherosclerotic calcification of the cavernous portions of the internal carotid arteries and vertebral arteries. Normal visualized paranasal sinuses. CT/Brain/Head without Contrast IMPRESSION: Chronic involutional changes of the brain. Electronically Signed: Suleman Chan MD at 12:33 EST ,
[2023-04-01] MEDS: Ondansetron 4 MG/2 ML Vial IV (12:04)
[2023-04-01 12:12] LABS: Absolute Lymphocyte Count 1.95 X10^3/uL (0.83-4.51); Absolute Neutrophil Count 5.2 X10^3/uL (2.0-7.7); Basophil# 0.04 X10^3/uL; Basophil% 0.5 % (0-1); Eosinophil# 0.13 X10^3/uL; Eosinophils% 1.6 % (0-5); Hematocrit 42.2 % (37-47); Hemoglobin 13.2 g/dL (12.0-15.0); Lymphocyte # 1.95 X10^3/ul (0.83-4.51); Lymphocyte % 23.6 % (19-41); Mean Corp Hgb Conc 31.3 g/dL (32-36); Mean Corpuscular Hgb 26.1 pg (27.0-32.0); Mean Corpuscular Volume 83.4 fL (81-99); Mean Platelet Vol. 10.1 fl (6.2-12.0); Monocyte# 0.86 X10^3/uL; Monocyte% 10.4 % (0-10); NRBC Flagged by Analyzer 0 % (0-5); Neutrophil # 5.24 X10^3/uL (2.7-7.7); Neutrophil % 63.2 % (47-70); Platelet Count 280 K/mm3 (150-450); RBC Distribution Width CV 14.5 % (11.6-14.6); RBC Distribution Width SD 43.9 fl (35.1-43.9); Red Blood Count 5.06 M/mm3 (4.2-5.4); White Blood Count 8.3 K/mm3 (4.4-11.0)
--- NOTE | 2023-04-01 12:15 | RAD_ITS ---
STUDY: X-RAY CHEST REASON FOR EXAM: Female, 78 years old. Chest pain TECHNIQUE: Single AP portable view of the chest. COMPARISON: Comparison is made with prior study dated December 13, 2022. FINDINGS: EKG electrodes are seen. Stable mild increased linear markings at the lung bases suggestive of mild linear atelectasis and/or scarring. There is no demonstrated pleural abnormality. Normal size heart. Normal mediastinum and carlin. Normal visualized pulmonary arteries. There is atherosclerotic calcification of the aortic arch with tortuosity. There are degenerative changes of the visualized thoracic spine. Normal visualized ribs, clavicles, and shoulders. There is no demonstrated abnormality of the visualized soft tissue structures of the upper abdomen. RAD/Chest 1 View (Portable) IMPRESSION: Stable examination. Electronically Signed: Suleman Chan MD at 12:34 EST ,
[2023-04-01 12:39] LABS: AST(SGOT) 25 U/L (15-37); Alanine Aminotransfer ALT/SGPT 28 U/L (13-56); Albumin, Serum 3.8 g/dL (3.2-5.0); Alkaline Phosphatase 75 U/L (45-117); Anion Gap 8 (5-15); BUN 15 mg/dL (7-18); BUN/Creat Ratio 18.7 RATIO (10-20); Calcium,Total 9.6 mg/dL (8.5-10.1); Chloride 104 mmol/L (98-107); EST Glomerular Filtration Rate 74 mL/min (>60); Est Glom Filt Rate - Afr Amer 89 mL/min (>60); Estimated Creatinine Clearance 44.44 ml/min; Glucose 107 mg/dL (74-106); Lipase 27 U/L (13-75); Protein, Total 7.8 g/dL (6.4-8.2); Sodium Level 139 mmol/L (136-145); Troponin-I HS (w/2H Reflex) 10 pg/mL (3.0-54.0)
[2023-04-01 13:27] VITALS: BP 110/78; PULSE 78; RESP 18
[2023-04-01 14:04] LABS: Reflex Troponin-HS? (from REC) Y
[2023-04-01 14:32] LABS: Troponin-I HS 10 pg/mL (3.0-54.0)
[2023-04-01 14:51] VITALS: BP 111/61; PULSE 76; RESP 16; TEMP 35.5
== END 2023-04-01 14:53 | disposition home or self-care (01) ==
PROVIDERS: Emergency Provider Emergency Medicine; PCP Family Medicine; Visit Provider Emergency Medicine
DX: I10 Essential (primary) hypertension (principal); E11.9 Type 2 diabetes mellitus without complications; F41.9 Anxiety disorder, unspecified; E78.5 Hyperlipidemia, unspecified; Z79.82 Long term (current) use of aspirin; Z79.899 Other long term (current) drug therapy
CPT/HCPCS: 70450; 71045; 80053; 83690; 84484; 85025; 93005; 96374; 99285; A4216; J2405

== ENCOUNTER 2023-06-11 07:06 | Day surgery (SDC) | payer MEDICARE, MEDICAID, SELFPAY ==
--- NOTE | 2023-06-11 07:42 | PCM.HP.BLA ---
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 Is patient in pain?: No Allergies codeine Adverse Reaction (Mild, Verified 03/25/23 07:39) Upset Stomachhydroxyzine HCl [From Vistaril] Adverse Reaction (Mild, Verified 03/25/23 07:39) Rashhydroxyzine pamoate [From Vistaril] Adverse Reaction (Mild, Verified 03/25/23 07:39) Rash Medications lamotrigine 150 mg tablet 150 mg PO DAILY 01/24/16 [History Confirmed 03/25/23] cholecalciferol (vitamin D3) 25 mcg (1,000 unit) capsule (Vitamin D3) 2,000 unit PO DAILY 01/08/17 [History Confirmed 03/25/23] Desvenlafaxine Succinate ER 50 mg PO DAILY 07/15/20 [History Confirmed 03/25/23] Losartan Potassium 100 mg PO DAILY 07/15/20 [History Confirmed 03/25/23] Omeprazole 40 mg PO DAILY 07/15/20 [History Confirmed 03/25/23] melatonin 5 mg capsule 5 mg PO QHS 12/13/22 [History Confirmed 03/25/23] aspirin 81 mg tablet,delayed release 81 mg PO BREAKFAST #0 tabs 12/15/22 [Rx Confirmed 03/25/23] acetaminophen 325 mg capsule 325 mg PO ONCE PRN pain #90 caps 01/19/23 [Rx Confirmed 03/25/23] atorvastatin 20 mg tablet mg PO 03/04/23 [History Confirmed 03/25/23] fesoterodine 8 mg tablet,extended release 24 hr mg PO 03/04/23 [History Confirmed 03/25/23] levothyroxine 137 mcg tablet mcg PO 03/04/23 [History Confirmed 03/25/23] multivitamin-ferrous fumarate-folic acid 18 mg-400 mcg tablet (Certavite-Antioxidant) tab PO 03/04/23 [History Confirmed 03/25/23] vitamin E (dl, acetate) 180 mg (400 unit) capsule mg PO 03/04/23 [History Confirmed 03/25/23] amlodipine 5 mg tablet 5 mg PO DAILY 03/25/23 [History] ascorbate calcium (vitamin C) 500 mg tablet 500 mg PO DAILY 03/25/23 [History Confirmed 03/25/23] buspirone 15 mg tablet 30 mg PO BID 03/25/23 [History Confirmed 03/25/23] olanzapine 2.5 mg tablet 2.5 mg PO DAILY 03/25/23 [History Confirmed 03/25/23] [facility] Medical History (Updated 03/25/23 @ 07:[address] Cruz Montero MD) Anxiety and depression Anxiety disorder, unspecified Bipolar 1 disorder GERD (gastroesophageal reflux disease) History of small bowel obstruction HTN (hypertension) Hyperlipemia Morbid obesity Schizoaffective disorder Type II diabetes mellitus Surgical History H/O umbilical hernia repair History of bilateral hip replacements History of herniorrhaphy History of lithotripsy S/P breast biopsy, right Status post thyroid surgery Family History Mother Hypertension DiabetesFather Prostate cancerSister HypertensionGrandmother Heart disease Social History household members: spouse Smoking Status: Never smoker alcohol intake: never substance use type: does not use HPI HPI HPI: 78-year-old female presents to discuss surveillance colonoscopy as she has a personal history of colon polyps. Her most recent colonoscopy was March 03, 2018. Multiple diverticula in the sigmoid and descending colon noted. Moderately tortuous bowel throughout. She did well with that examination and no polyps were identified at that time. Follow-up at 5 years recommended. In addition today the patient is noting that she has nausea particularly worse in the morning. If she eats some dry crackers or dry toast that can sometimes help. She has had multiple years of gastroesophageal reflux disease. She has been on a PPI omeprazole for multiple years too many to count. She does not recall having an upper endoscopy in the past. She was hospitalized this past year because of a reaction to Flexeril causing her to be acutely confused and then she had to spend a week at a care facility. She feels like she is back to normal now ROS General General: Yes weight change and fatigue; No appetite, colon cancer, breast cancer or weakness HEENT HEENT: No difficulty swallowing, eye injury, eye surgery, swollen glands or hoarseness Endo Endocrine: Yes thyroid disease and diabetes mellitus; No thyroid cancer, Hair loss, heat intolerance or cold intolerance Skin Skin: No rash or changing moles Breast Breast: No left breast lump, right breast lump, nipple discharge, breast pain, abnormal mammogram, abnormal US or breast enlargement Musc Musculoskeletal: Yes back problems and arthritis; No rheumatoid arthritis, gout or joint pain Cardio Cardiovascular: Yes murmur; No pacemaker, heart disease, atrial fibrillation, high blood pressure, heart attack, heart stent, palpitations, shortness of breat with exertion or chest pain Psych Psychiatric: Yes depression and anxiety; No hearing voices Resp Respiratory: No shortness of breath, No sleep apnea, No cough, No COPD, No asthma, No emphysema and No wheezing Gastro Gastrointestinal: No abdominal pain, Yes nausea or vomiting, Yes diarrhea, No constipation, No blood in stool, Yes acid reflux, No hemorrhoids, No ulcers, No gallbladder problem and No black,tarry stools Rishabh Hematologic: No blood thinners, No blood disorders, No bleeding, No anemia and No blood clots Additional Details: ASA daily Neuro Neurologic: No system reviewed and no additional complaints, except as documented, No as per HPI, No abnormal gait, No abnormal hearing, No abnormal movements, No abnormal speech, No behavioral changes, No burning sensations, No confusion, No convulsions, No disequilibrium, No dizziness, No localized weakness, No frequent falls, No headache(s), No lack of coordination, No loss of vision, No memory loss, No numbness, No other visual disturbances, No radicular pain, No restless legs, No sensory deficit, No syncope, No tingling, No tremor(s), No weakness and No other Exam Const General: cooperative, comfortable and no acute distress [facility] Head: normal to inspection Eyes General: appearance normal, both eyes and all related structures Resp Effort & Inspection: normal respiratory effort Auscultation: clear to auscultation bilaterally Cardio Rate: regular rate Rhythm: regular rhythm Other: 2/6 systolic ejection murmur GI Other: Soft, nontender, normal bowel sounds Skin General: no rashes or lesions noted Neuro General: patient alert, patient awake and patient oriented x3 Extrem General: no calf tenderness Psych Appearance: well kempt Assessment and Plan Assessment and Plan (1) Personal history of colonic polyps: Status: Acute Plan: Pleasant 78-year-old female. She has 2 issues that need to be addressed. She is having problems with nausea particularly in the morning. This is improved by eating dry crackers or dry cereal. She has been on omeprazole PPI for an extended period of time multiple years and does not recall previous upper endoscopy. Secondarily she has personally had a history of colon polyps. Most recent colonoscopy that has listed is January 12, 2017. I propose for the patient a combined esophagogastroduodenoscopy with possible biopsy and colonoscopy with possible biopsy or polypectomy. She has had an opportunity to ask and have questions answered. We will utilize monitored anesthesia care. I appreciate the ongoing opportunity of assisting with her surgical care. Copy:DO Cruz Hopkins M.D., F.A.C.S. (2) GERD (gastroesophageal reflux disease): Status: Acute (3) Nausea: Status: Acute Coding Level of Care Code Off vis,est,level 3 Diagnoses Personal history of colonic polyps Z86.010 GERD (gastroesophageal reflux disease) K21.9 I have examined the patient and the H&P has been reviewed. There are no clinical changes since date of exam. Cruz Montero M.D., F.A.C.S.
[2023-06-11 07:44] VITALS: BP 104/71; PULSE 81; RESP 16; TEMP 37.1; O2SAT 97; BMI 30.2
[2023-06-11] MEDS: Lactated Ringers 1,000 ML 15 ML IV (07:54)
--- NOTE | 2023-06-11 09:00 | EGD_PTH ---
PATHOLOGY RESULTS PATIENT: JOSELUIS HUI LOC: EN U#:[id number] AGE/SX: 78/F ROOM: RE06/11/[address]: Dr. Cruz Montero MD : 1945 BED: DIS: 06/11/2023 SPEC #: [id number] RECD: 06/11/23 13:12 STATUS: GALINA ROA #: [id number] DEVIN: 06/11/23 09:[address]: Cruz Montero DEPT: SURGICAL PATHOLOGY RECD BY: Apoorva Martel ENTERED: 06/11/23 13:48 SP TYPE: EGD BIOPSY OTHR DR: Kiara Garcia DO Tissues: Duodenum, NOS Gastric mucous membrane Stomach, NOS Esophagus, NOS Descending colon Procedures: Special Stain Group II Surgery Specimen Level IV Alcian Blue/PAS (control) HEADER OPERATION: Colonoscopy, EGD, biopsy PRE-OP DIAGNOSIS: History of colonic polyps, GERD, nausea TISSUE SUBMITTED: A - Duodenum polyp biopsy, B - Gastric antrum biopsy, H. pylori and path, C - Greater curvature polyp biopsy, D - Distal esophagus biopsy, E - Descending colon polyp biopsy MICROSCOPIC DIAGNOSIS A. Duodenal polyp, biopsy: Fragments of duodenal mucosa with gastric metaplasia and mild chronic inflammation. B. Gastric antrum, biopsy: Mild gastritis. See microscopic description and comment. C. Greater curvature polyp, biopsy: Fundic gland polyp. D. Distal esophagus, biopsy: Fragments of gastroesophageal mucosa with chronic inflammation. Intestinal metaplasia (goblet cell metaplasia) not identified. See comment. E. Descending colon polyp, biopsy: Tubular adenoma. SJ:zach 06/14/2023 COMMENT B. The results of immunohistochemistry for Helicobacter pylori will be reported separately ([id number]). C. Alcian blue/PAS stain with matched control is used in the evaluation of the specimen. The specimen predominantly consists of squamous mucosa. MICROSCOPIC DESCRIPTION Slides are reviewed. B. The specimen shows fragments of gastric mucosa with chronic inflammatory cell infiltrates in the lamina propria consisting of lymphocytes and plasma cells, consistent with mild chronic gastritis. GROSS DESCRIPTION A - Received in fixative is one container labeled with the patient's name and designated duodenal polyp biopsy. The specimen consists of one irregular fragment of light harris soft tissue that measures 0.4 x 0.3 x 0.1 cm. The specimen is totally submitted in one cassette. B - Received in fixative is one container labeled with the patient's name and designated gastric antrum. The specimen consists of two irregular fragments of light harris soft tissue that in aggregate measure 0.4 x 0.3 x 0.1 cm. The specimen is totally submitted in one cassette. C - Received in fixative is one container labeled with the patient's name and designated greater curvature polyp biopsy. The specimen consists of one irregular fragment of light harris soft tissue that measures 0.3 x 0.4 x 0.1 cm. The specimen is totally submitted in one cassette. D - Received in fixative is one container labeled with the patient's name and designated distal esophagus biopsy. The specimen consists of multiple irregular fragments of light harris soft tissue that in aggregate measure 0.6 x 0.3 x 0.1 cm. The specimen is totally submitted in one cassette. E - Received in fixative is one container labeled with the patient's name and designated descending colon polyp biopsy. The specimen consists of two irregular fragments of light harris soft tissue that in aggregate measure 0.5 x 0.3 x 0.1 cm. The specimen is totally submitted in one cassette. / JOSH:zach 06/11/2023 TC:3 CPT: 95100 x5, 96638
--- NOTE | 2023-06-11 09:00 | IMM_PTH ---
PATHOLOGY RESULTS PATIENT: JOSELUIS HUI LOC: EN U#:[id number] AGE/SX: 78/F ROOM: RE06/11/[address]: Dr. Cruz Montero MD : 1945 BED: DIS: 06/11/2023 SPEC #: [id number] RECD: 06/11/23 14:12 STATUS: GALINA REQ #: [id number] DEVIN: 06/11/23 09:[address]: Cruz Montero DEPT: IMMUNOHISTOCHEMISTRY RECD BY: Layla Hopson ENTERED: 06/11/23 14:12 SP TYPE: IMMUNO OTHR DR: Kiara Gracia DO Tissues: Stomach, NOS Procedures: H Pylori (initial) PHYSICIAN & INSTITUTION [place] [id number] SPECIMEN INFORMATION: Tissue Source: B - Gastric antrum Clinical Info: History of colonic polyps, GERD, nausea Specimen Number: [id number] CPT code: 83014 METHODOLOGY: Deparaffinized sections of prefer/formalin-fixed tissue or PAP/DQ stained slides are incubated with monoclonal/polyclonal antibodies/oligonucleotide probes. Localization is made via biotin free immunoperoxidase method. Appropriate controls are performed and reacted as expected. Results on target cell population are indicated in the following table: RESULTS: ANTIBODY / CLONE RESULT Block B H Pylori (polyclonal) negative These tests were developed and their performance characteristics determined by [facility]. They may not have been cleared or approved by the U.S. Food and Drug Administration. The FDA has determined that such clearance or approval is not necessary. The above immunohistochemical/dualISH markers are ordered and reviewed by the Pathologist. INTERPRETATION: B. Gastric antrum, biopsy: Negative for Helicobacter pylori organisms. SJ:zach 06/14/2023
[2023-06-11 09:55] VITALS: BP 104/71; BP 75/54; PULSE 64; RESP 14; TEMP 36.1; O2SAT 100
--- NOTE | 2023-06-11 09:55 | OP.EGD_ITS ---
Patient Name: Lilia Mckay Procedure Date: 06/11/2023 9:10 AM Date of : 1945 Age: 78 Procedure: Upper GI endoscopy Indications: Gastro-esophageal reflux disease Providers: Cruz Montero MD Medicines: See the Anesthesia note for documentation of the administered medications Complications: No immediate complications. Procedure: Pre-Anesthesia Assessment: - Prior to the procedure, a History and Physical was performed, and patient medications and allergies were reviewed. The patient's tolerance of previous anesthesia was also reviewed. The risks and benefits of the procedure and the sedation options and risks were discussed with the patient. All questions were answered, and informed consent was obtained. Prior Anticoagulants: The patient has taken no anticoagulant or antiplatelet agents. ASA Grade Assessment: II - A patient with mild systemic disease. After reviewing the risks and benefits, the patient was deemed in satisfactory condition to undergo the procedure. After obtaining informed consent, the endoscope was passed under direct vision. Throughout the procedure, the patient's blood pressure, pulse, and oxygen saturations were monitored continuously. The Endoscope was introduced through the mouth, and advanced to the second part of duodenum. The upper GI endoscopy was accomplished without difficulty. The patient tolerated the procedure well. Scope In: 9:19:46 AM Scope Out: 9:26:02 AM Total Procedure Duration Time 0 hours 6 minutes 16 seconds Findings: Esophagitis with no bleeding was found 39 cm from the incisors. Biopsies were taken with a cold forceps for histology. A small hiatal hernia was present. Multiple pedunculated and sessile polyps with no bleeding and no stigmata of recent bleeding were found in the gastric fundus and on the greater curvature of the stomach. The polyp was removed with a cold biopsy forceps. Resection and retrieval were complete. Diffuse mildly erythematous mucosa without bleeding was found in the gastric antrum. Biopsies were taken with a cold forceps for histology. A single 4 mm sessile polyp with no bleeding was found in the duodenal bulb. The polyp was removed with a cold biopsy forceps. Resection and retrieval were complete. Impression: - Reflux esophagitis with no bleeding. Biopsied. - Small hiatal hernia. - Multiple gastric polyps. Resected and retrieved. - Erythematous mucosa in the antrum. Biopsied. - A single duodenal polyp. Resected and retrieved. Recommendation: - Telephone my office for pathology results in 1 week. No acute findings. Recommend continuing medical treatment. - Continue present medications. Procedure Code(s): --- Professional --- 86851, Esophagogastroduodenoscopy, flexible, transoral; with biopsy, single or multiple Diagnosis Code(s): --- Professional --- K21.00, Gastro-esophageal reflux disease with esophagitis, without bleeding K44.9, Diaphragmatic hernia without obstruction or gangrene K31.7, Polyp of stomach and duodenum K31.89, Other diseases of stomach and duodenum CPT copyright 2021 [employer]. All rights reserved. The codes documented in this report are preliminary and upon chief engineer review may be revised to meet current compliance requirements. Cruz Montero MD 06/11/2023 9:55:39 AM This report has been signed electronically. Number of Addenda: 0 Note Initiated On: 06/11/2023 9:10 AM
--- NOTE | 2023-06-11 09:56 | OP.CCLET_ITS ---
06/11/2023 Kiara Garcia, Re : Upper GI endoscopy procedure for Lilia Mckay Dear Jose This procedure was performed on Sunday, June 11, 2023. My impressions and recommendations are as follows: Impressions : - Reflux esophagitis with no bleeding. Biopsied. - Small hiatal hernia. - Multiple gastric polyps. Resected and retrieved. - Erythematous mucosa in the antrum. Biopsied. - A single duodenal polyp. Resected and retrieved. Recommendations : - Telephone my office for pathology results in 1 week. No acute findings. Recommend continuing medical treatment. - Continue present medications. My findings are described in the full procedure note, which is enclosed. If I can be of further assistance, please feel free to contact me at Doctor phone number(s): Work: . Sincerely, Cruz Montero MD 06/11/2023 9:55:39 AM This report has been signed electronically.
--- NOTE | 2023-06-11 09:59 | OP.CCLET_ITS ---
06/11/2023 Kiara Garcia, Do Re : Colonoscopy procedure for Lilia Mckay Dear Jose This procedure was performed on Sunday, June 11, 2023. My impressions and recommendations are as follows: Impressions : - Preparation of the colon was fair. - Hemorrhoids found on perianal exam. - One 4 mm polyp in the mid descending colon, removed with a cold biopsy forceps. Resected and retrieved. - Diverticulosis in the sigmoid colon. Recommendations : - Discharge patient to home. - Resume previous diet. - Continue present medications. - Telephone my office for pathology results in 1 week. - Repeat colonoscopy in 5 years for surveillance. My findings are described in the full procedure note, which is enclosed. If I can be of further assistance, please feel free to contact me at Doctor phone number(s): Work: . Sincerely, Cruz Montero MD 06/11/2023 9:58:43 AM This report has been signed electronically.
--- NOTE | 2023-06-11 09:59 | OP.COLON_ITS ---
Patient Name: Lilia Mckay Procedure Date: 06/11/2023 9:28 AM Date of : 1945 Age: 78 Procedure: Colonoscopy Indications: High risk colon cancer surveillance: Personal history of colonic polyps Providers: Cruz Montero MD Medicines: See the Anesthesia note for documentation of the administered medications Patient Profile: Last Colonoscopy: February 2018. Complications: No immediate complications. Procedure: Pre-Anesthesia Assessment: - Prior to the procedure, a History and Physical was performed, and patient medications and allergies were reviewed. The patient's tolerance of previous anesthesia was also reviewed. The risks and benefits of the procedure and the sedation options and risks were discussed with the patient. All questions were answered, and informed consent was obtained. Prior Anticoagulants: The patient has taken no anticoagulant or antiplatelet agents. ASA Grade Assessment: II - A patient with mild systemic disease. After reviewing the risks and benefits, the patient was deemed in satisfactory condition to undergo the procedure. After I obtained informed consent, the scope was passed under direct vision. Throughout the procedure, the patient's blood pressure, pulse, and oxygen saturations were monitored continuously. The Colonoscope was introduced through the anus and advanced to the cecum, identified by appendiceal orifice and ileocecal valve. The colonoscopy was somewhat difficult due to a tortuous colon. The patient tolerated the procedure well. The quality of the bowel preparation was fair. The ileocecal valve was photographed. Scope In: 9:29:08 AM Scope Withdrawal Time 0 hours 8 minutes 8 seconds Scope Out: 9:46:55 AM Total Procedure Duration Time 0 hours 17 minutes 47 seconds Findings: Hemorrhoids were found on perianal exam. A 4 mm polyp was found in the mid descending colon. The polyp was sessile. The polyp was removed with a cold biopsy forceps. Resection and retrieval were complete. Multiple diverticula were found in the sigmoid colon. Impression: - Preparation of the colon was fair. - Hemorrhoids found on perianal exam. - One 4 mm polyp in the mid descending colon, removed with a cold biopsy forceps. Resected and retrieved. - Diverticulosis in the sigmoid colon. Recommendation: - Discharge patient to home. - Resume previous diet. - Continue present medications. - Telephone my office for pathology results in 1 week. - Repeat colonoscopy in 5 years for surveillance. Procedure Code(s): --- Professional --- 25263, Colonoscopy, flexible; with biopsy, single or multiple Diagnosis Code(s): --- Professional --- Z86.010, Personal history of colonic polyps K64.9, Unspecified hemorrhoids D12.4, Benign neoplasm of descending colon K57.30, Diverticulosis of large intestine without perforation or abscess without bleeding CPT copyright 2021 [employer]. All rights reserved. The codes documented in this report are preliminary and upon label coder review may be revised to meet current compliance requirements. Cruz Montero MD 06/11/2023 9:58:43 AM This report has been signed electronically. Number of Addenda: 0 Note Initiated On: 06/11/2023 9:28 AM
[2023-06-11 10:00] VITALS: BP 104/71; BP 92/55; PULSE 63; RESP 14; O2SAT 100
[2023-06-11 10:05] VITALS: BP 104/53; BP 104/71; PULSE 65; RESP 16
[2023-06-11 10:10] VITALS: BP 104/71; BP 115/69; PULSE 72; RESP 16; TEMP 36.1; O2SAT 100
[2023-06-11 10:21] VITALS: BP 104/71
== END 2023-06-11 10:41 | disposition home or self-care (01) ==
LOC: EN 07:08 → AC 07:09
PROVIDERS: PCP Family Medicine; Referring Provider Family Medicine; Visit Provider Surgery
PROC: 0DJD8ZZ Inspection of Lower Intestinal Tract, Via Natural or Artificial Opening Endoscopic (ICD-10-PCS; CPT 45378; principal; 2023-06-11 08:55)
DX: Z12.11 Encounter for screening for malignant neoplasm of colon (principal); F25.9 Schizoaffective disorder, unspecified; F31.9 Bipolar disorder, unspecified; E11.9 Type 2 diabetes mellitus without complications; K57.30 Diverticulosis of large intestine without perforation or abscess without bleeding; K44.9 Diaphragmatic hernia without obstruction or gangrene; K31.7 Polyp of stomach and duodenum; Z86.010 Personal history of colon polyps; E78.5 Hyperlipidemia, unspecified; K21.00 Gastro-esophageal reflux disease with esophagitis, without bleeding; I10 Essential (primary) hypertension; K64.9 Unspecified hemorrhoids; D12.4 Benign neoplasm of descending colon; K31.89 Other diseases of stomach and duodenum
CPT/HCPCS: 43239; 45380; 88305; 88313; 88342; J7120; J2405

== ENCOUNTER 2023-07-29 17:00 | Emergency (ER) | payer MEDICARE, MEDICAID, SELFPAY ==
[2023-07-29 17:04] VITALS: BP 143/92; PULSE 80; RESP 18; TEMP 35.9; O2SAT 96; BMI 31.5
--- NOTE | 2023-07-29 17:57 | EX.ED.DYSGE1 ---
HPI <MORENA Hawkins - Last Filed: 07/29/23 19:49> History of Present Illness Chief Complaint: Headache Narrative Narrative: Patient presenting today due to a headache that she has had intermittently over the past 3 days. She reports that the pain is located to the corner of her right eye and is sharp. She cannot pinpoint what brings the pain on. She saw her PCP today and brought this up, he encouraged her to come into the emergency department to have a CT scan of her head to rule out stroke and other abnormality. She denies any history of stroke. She denies any visual changes or eye pain. PMH includes schizoaffective disorder, hypertension, and anxiety. PFSH <MORENA Hawkins - Last Filed: 07/29/23 19:49> [facility] Medical History Ambulates with cane Anxiety Anxiety and depression Anxiety disorder, unspecified Arthritis Bipolar 1 disorder Bladder disease Depression Fatty liver Gastric reflux GERD (gastroesophageal reflux disease) High cholesterol History of echocardiogram History of irregular heartbeat History of small bowel obstruction HTN (hypertension) Hyperlipemia Morbid obesity Non-smoker Schizoaffective disorder Thyroid disease Type II diabetes mellitus Wears dentures Wears glasses Home Medications cholecalciferol (vitamin D3) 25 mcg (1,000 unit) capsule (Vitamin D3) 2,000 unit PO DAILY 01/08/17 [History Last Taken 06/10/23] Losartan Potassium 100 mg PO DAILY 07/15/20 [History Last Taken 06/11/23] Omeprazole 40 mg PO DAILY 07/15/20 [History Last Taken 06/11/23] melatonin 5 mg capsule 5 mg PO QHS 12/13/22 [History Last Taken 06/10/23] aspirin 81 mg tablet,delayed release 81 mg PO BREAKFAST #0 tabs 12/15/22 [Rx Last Taken 06/07/23] atorvastatin 20 mg tablet 20 mg PO QHS 03/04/23 [History Last Taken 06/10/23] fesoterodine 8 mg tablet,extended release 24 hr 8 mg PO DAILY 03/04/23 [History Last Taken 06/10/23] levothyroxine 137 mcg tablet 137 mcg PO DAILY 03/04/23 [History Last Taken 06/10/23] vitamin E (dl, acetate) 180 mg (400 unit) capsule 360 mg PO DINNER 03/04/23 [History Last Taken 06/10/23] ascorbate calcium (vitamin C) 500 mg tablet 500 mg PO DAILY 03/25/23 [History Last Taken 06/10/23] cranberry 400 mg capsule 400 mg PO DAILY 06/07/23 [History Last Taken 06/10/23] loratadine 10 mg disintegrating tablet (Alavert) 10 mg PO DAILY 06/07/23 [History Last Taken 06/10/23] buspirone 15 mg tablet 15 mg PO BID #60 tabs 07/14/23 [Rx Last Taken Unknown] desvenlafaxine succinate 50 mg tablet,extended release 24 hr (Pristiq) 50 mg PO DAILY #30 tabs 07/14/23 [Rx Last Taken Unknown] lamotrigine 150 mg tablet 150 mg PO QHS #30 tabs 07/14/23 [Rx Last Taken Unknown] magnesium citrate 125 mg capsule 250 mg PO DAILY 07/14/23 [History Last Taken Unknown] olanzapine 5 mg tablet 5 mg PO QHS 30 days #30 tabs 07/14/23 [Rx Last Taken Unknown] sucralfate 1 gram tablet 1 g PO BID 07/14/23 [History Last Taken Unknown] zinc gluconate 50 mg tablet 50 mg PO DAILY 07/14/23 [History Last Taken Unknown] Allergy/AdvReac Type Severity Reaction Status Date / Time cyclobenzaprine Allergy Intermediate Other Verified 07/29/23 17:04 [From Flexeril] codeine AdvReac Mild Upset Verified 07/29/23 17:04 Stomach hydroxyzine HCl AdvReac Mild Rash Verified 07/29/23 17:04 [From Vistaril] hydroxyzine pamoate AdvReac Mild Rash Verified 07/29/23 17:04 [From Vistaril] Family History Mother Hypertension Diabetes Father Prostate cancer Sister Hypertension Grandmother Heart disease Surgical History H/O umbilical hernia repair History of bilateral hip replacements History of herniorrhaphy History of lithotripsy S/P breast biopsy, right Status post thyroid surgery Social History household members: spouse Smoking Status: Never smoker alcohol intake: never substance use type: does not use ROS <MORENA Hawkins - Last Filed: 07/29/23 19:49> ROS ED Constitutional Constitutional ED: Denies chills or fever(s) Eyes Eyes: Denies blurry vision, change in vision or diplopia Cardiovascular Cardiovascular: Denies chest pain or palpitations Respiratory/Chest Respiratory/Chest: Denies cough or dyspnea Gastrointestinal Gastrointestinal: Denies abdominal pain, nausea or vomiting Genitourinary Genitourinary ED: Reports urinary frequency; Denies dysuria or hematuria Musculoskeletal Musculoskeletal: Denies arthralgias or myalgias Integumentary Denies rash Neurologic Neurologic: Reports headache(s); Denies paresthesias or weakness EXAM <MORENA Hawkins - Last Filed: 07/29/23 19:49> Physical Exam Const Vital Signs: 07/29/23 17:04 07/29/23 19:03 07/29/23 19:29 Temperature 96.6 F L 97.6 F L Temperature Source Temporal Pulse Rate 80 79 79 Respiratory Rate 18 20 H 20 H Blood Pressure 143/92 H 116/74 116/74 Blood Pressure Mean 109 88 88 Pulse Ox 96 94 94 Oxygen Delivery Method Room Air Room Air Positive well nourished, well developed and no apparent distress General Appearance ED: well developed HEENT Reports normocephalic and head/scalp atraumatic Mouth ED: Yes moist mucous membranes normal Eyes PERRL and EOMs intact bilaterally Eyes Narrative: Reproducible pain to palpation to the along the lateral aspect of the R orbit. Neck full ROM and supple Chest Wall inspection of chest normal Resp normal respiratory effort and clear to auscultation bilaterally Cardio regular rate and regular rhythm GI soft to palpation, non-tender, non-distended and no masses Back/Spine normal ROM and normal to inspection Extremity normal to inspection and full ROM Neuro oriented x3, CN's II-XII intact bilaterally, moves all extremities, no focal motor deficits and no sensory deficits noted Sensorium / Orientation: awake and alert Psych mental status grossly normal and thought process normal Skin no rashes or lesions noted and no wounds <Dr. Fish Jerez DO - Last Filed: 07/29/23 20:24> Physical Exam Const Vital Signs: 07/29/23 17:04 07/29/23 19:03 07/29/23 19:29 Temperature 96.6 F L 97.6 F L Temperature Source Temporal Pulse Rate 80 79 79 Respiratory Rate 18 20 H 20 H Blood Pressure 143/92 H 116/74 116/74 Blood Pressure Mean 109 88 88 Pulse Ox 96 94 94 Oxygen Delivery Method Room Air Room Air Neuro Motor Exam: strength 5/5 throughout [facility] <MORENA Hawkins - Last Filed: 07/29/23 19:49> [facility] Narrative Medical decision making narrative: Patient presenting today due to intermittent pain to the corner of her right eye she has had over the past 3 days. She does not currently have pain. She reports that she was sent in by her PCP to have a CT scan of her head. She has an NIH of 0, no neurological deficits. CT of the head will be obtained to rule out intracranial abnormality. I did consider temporal arteritis, however she is not tender along her temporal artery. She does have reproducible tenderness to the lateral aspect of the right orbit. No tenderness to her eye, no pain with EOMs, no signs of orbital cellulitis. No visual changes. Head CT negative for any acute findings. She did report having urinary frequency, UA was obtained and negative for UTI, culture will be obtained. I encouraged that she follow-up with her PCP and will be discharged home in stable condition. She is comfortable with plan. Lab Data Labs: Laboratory Results - last 24 hr 07/29/23 18:25 Urine Color Yellow Urine Clarity Clear Urine pH 7.0 Ur Specific [place] 1.010 Urine Protein Negative Urine Glucose (UA) Normal Urine Ketones Negative Urine Occult Blood Negative Urine Nitrite Negative Urine Bilirubin Negative Urine Urobilinogen Normal Ur Leukocyte Esterase 500 H Urine RBC 0 SEEN Urine WBC 0-5 SEEN Ur Squamous Epith Cells 0 SEEN Urine Bacteria 0 SEEN Urine Mucus 0 SEEN Radiography Diagnostic Testing: Clinical Impression(s) from Imaging Studies Brain CT 07/29/23 18:25 IMPRESSION: 1. Stable exam 2. No intracranial mass, hemorrhage or acute territorial infarct. 3. No radiographically significant sinus disease.. Electronically Signed: Sd Montes De Oca MD at 19:12 EDT , <Dr. Fish Jerez, DO - Last Filed: 07/29/23 20:24> [facility] Lab Data Labs: Laboratory Results - last 24 hr 07/29/23 18:25 Urine Color Yellow Urine Clarity Clear Urine pH 7.0 Ur Specific [place] 1.010 Urine Protein Negative Urine Glucose (UA) Normal Urine Ketones Negative Urine Occult Blood Negative Urine Nitrite Negative Urine Bilirubin Negative Urine Urobilinogen Normal Ur Leukocyte Esterase 500 H Urine RBC 0 SEEN Urine WBC 0-5 SEEN Ur Squamous Epith Cells 0 SEEN Urine Bacteria 0 SEEN Urine Mucus 0 SEEN Radiography Diagnostic Testing: Clinical Impression(s) from Imaging Studies Brain CT 07/29/23 18:25 IMPRESSION: 1. Stable exam 2. No intracranial mass, hemorrhage or acute territorial infarct. 3. No radiographically significant sinus disease.. Electronically Signed: Sd Montes De Oca MD at 19:12 EDT Reading Location ID and State: [facility] / [place] Tel , Service support , Discharge Plan Triage Chief Complaint: Headache ED Midlevel Provider: Melony Rider ED Provider: Fish Jerez Dx/Rx/DC Orders Clinical Impression: Headache Instructions: ED, Migraine (Classical) Prescriptions: No Action levothyroxine 137 mcg tablet 137 mcg PO DAILY atorvastatin 20 mg tablet 20 mg PO QHS vitamin E (dl, acetate) 180 mg (400 unit) capsule 360 mg PO DINNER fesoterodine 8 mg tablet extended release 24 hr 8 mg PO DAILY ascorbate calcium (vitamin C) 500 mg tablet 500 mg PO DAILY sucralfate 1 gram tablet 1 g PO BID zinc gluconate 50 mg tablet 50 mg PO DAILY magnesium citrate 125 mg capsule 250 mg PO DAILY buspirone 15 mg tablet 15 mg PO BID Qty: 60 2RF desvenlafaxine succinate [Pristiq] 50 mg tablet extended release 24 hr 50 mg PO DAILY Qty: 30 2RF lamotrigine 150 mg tablet 150 mg PO QHS Qty: 30 2RF olanzapine 5 mg tablet 5 mg PO QHS 30 Days Qty: 30 2RF cholecalciferol (vitamin D3) [Vitamin D3] 1,000 UNIT capsule 2,000 unit PO DAILY Omeprazole capsule 40 mg PO DAILY Losartan Potassium tablet 100 mg PO DAILY melatonin 5 mg capsule 5 mg PO QHS aspirin 81 mg Tablet,Delayed Release (Dr/Ec) 81 mg PO BREAKFAST Qty: 0 0RF cranberry 400 mg capsule 400 mg PO DAILY Rx Instructions: administer with a meal loratadine [Alavert] 10 mg tablet,disintegrating 10 mg PO DAILY Primary Care Provider: Kiara Garcia Referrals: Kiara Garcia, DO [Primary Care Provider] - 3-5 Days Activity Restrictions/Additional Instructions: Follow-up with PCP and return for any worsening of symptoms. Disposition Disposition: Home, Self Care Discharge Date/Time: 07/29/23 19:29
--- NOTE | 2023-07-29 18:25 | CT_ITS ---
INDICATION: headache EXAMINATION: CT BRAIN - CT Head or Brain W/O Contrast Injection TECHNIQUE: Multiple axial images were obtained of the head without intravenous contrast. A radiation dose optimization technique was used for this scan. IV Contrast dosage and agent: None. RADIATION DOSAGE (If Supplied By Facility): CTDIvol = ( 44.99 ) mGy, DLP = ( 815.79 ) mGycm COMPARISON: 04/01/2023 FINDINGS: HEMISPHERES: 1. The cerebral parenchyma, ventricular system, subarachnoid spaces have normal configuration and density. There is a normal gyral pattern. There is normal loja/white differentiation. No midline shift.. 2. Moderate chronic microvascular deep white matter change without interval change. 3. No intraparenchymal mass, hemorrhage, or acute territorial infarct. CEREBELLUM - BRAINSTEM: The cerebellum, brainstem, basilar and suprasellar cisterns have normal appearance. No Chiari malformation. PITUITARY: Infundibulum and pituitary have normal configuration. Midline structures appear normal. CSF SPACES: Appropriate for age. No hydrocephalus. Basal cisterns are patent. VESSELS: 1. Moderate vascular calcifications in the cavernous carotid vessels and in the vertebral arteries. 2. No hyperdense vascular signs noted.. ORBITS AND PARANASAL SINUSES: 1. Normal appearance of the bony orbits. Normal appearance of the globes and retrobulbar soft tissues.. 2. Paranasal sinuses are clear. BONY ELEMENTS: Bony elements of the cranial vault, facial skeleton and skull base have normal appearance. SCALP AND SOFT TISSUES: Normal appearance of the soft tissues of the scalp and the visualized face OTHER: None ASPECTS Score for Acute Strokes: 10 CT/Brain/Head without Contrast IMPRESSION: 1. Stable exam 2. No intracranial mass, hemorrhage or acute territorial infarct. 3. No radiographically significant sinus disease.. Electronically Signed: Sd Montes De Oca MD at 19:12 EDT ,
[2023-07-29 18:40] LABS: Bacteria 0 SEEN /hpf (None Seen); Mucous, Urine 0 SEEN /hpf (<or=2+); Red Blood Cells-Urine 0 SEEN /hpf (0-5); Squamous Epithelial Cells - UA 0 SEEN /hpf (5-10)
[2023-07-29 18:47] LABS: Color, Urine Yellow (Yellow); Glucose, Dipstick Normal (Normal); Ketone-Dipstick Negative (Negative); Leukocyte Esterase-Dipstick 500 /ul (Negative); Nitrite-Dipstick Negative (Negative); Occult Blood-Urine Negative /ul (Negative); Protein-Dipstick Negative (Negative); Urine Bilirubin Dipstick Negative (Negative); Urine Clarity Clear (Clear); Urine Urobilinogen Normal (Normal)
[2023-07-29 18:57] LABS: White Blood Cells 0-5 SEEN /hpf (0-5)
[2023-07-29 19:03] VITALS: BP 116/74; PULSE 79; RESP 20; O2SAT 94
[2023-07-29 19:29] VITALS: BP 116/74; PULSE 79; RESP 20; TEMP 36.4; O2SAT 94
== END 2023-07-29 19:29 | disposition home or self-care (01) ==
PROVIDERS: Physician Assistant; Emergency Provider Emergency Medicine; PCP Family Medicine; Visit Provider Emergency Medicine
DX: R51.9 Headache, unspecified (principal); F25.9 Schizoaffective disorder, unspecified; F31.9 Bipolar disorder, unspecified; E11.9 Type 2 diabetes mellitus without complications; R35.0 Frequency of micturition; I10 Essential (primary) hypertension; H57.11 Ocular pain, right eye; F41.8 Other specified anxiety disorders; E78.00 Pure hypercholesterolemia, unspecified; K21.9 Gastro-esophageal reflux disease without esophagitis; Z79.899 Other long term (current) drug therapy; Z79.82 Long term (current) use of aspirin; Z96.643 Presence of artificial hip joint, bilateral
CPT/HCPCS: 70450; 81001; 87086; 99282

== ENCOUNTER → 2023-08-06 | Outpatient (CLI) | payer MEDICARE, MEDICAID, SELFPAY ==
[2023-08-06 15:51] LABS: Absolute Lymphocyte Count 1.33 X10^3/uL (0.83-4.51); Absolute Neutrophil Count 3.8 X10^3/uL (2.0-7.7); Basophil# 0.04 X10^3/uL; Basophil% 0.6 % (0-1); Eosinophil# 0.18 X10^3/uL; Eosinophils% 2.9 % (0-5); Hemoglobin 11.6 g/dL (12.0-15.0); Lymphocyte # 1.33 X10^3/ul (0.83-4.51); Lymphocyte % 21.6 % (19-41); Mean Corp Hgb Conc 31.4 g/dL (32-36); Mean Corpuscular Hgb 27.4 pg (27.0-32.0); Mean Corpuscular Volume 87.3 fL (81-99); Mean Platelet Vol. 10.1 fl (6.2-12.0); Monocyte# 0.76 X10^3/uL; Monocyte% 12.3 % (0-10); NRBC Flagged by Analyzer 0 % (0-5); Neutrophil % 61.8 % (47-70); Platelet Count 270 K/mm3 (150-450); RBC Distribution Width CV 13.6 % (11.6-14.6); Red Blood Count 4.24 M/mm3 (4.2-5.4); White Blood Count 6.2 K/mm3 (4.4-11.0)
[2023-08-06 16:01] LABS: Erythrocyte Sedimentation Rate 12 mm/hr (0-30)
== END | disposition home or self-care (01) ==
LOC: MFPLAB 13:50
PROVIDERS: PCP Family Medicine; Visit Provider Family Medicine
DX: R51.9 Headache, unspecified (principal)
CPT/HCPCS: 36415; 85025; 85652

== ENCOUNTER → 2023-09-13 | Outpatient (CLI) | payer MEDICARE, MEDICAID, SELFPAY | END | disposition home or self-care (01) | PROVIDERS: PCP Family Medicine; Referring Provider Family Medicine; Visit Provider Family Medicine | DX: R19.7 Diarrhea, unspecified (principal); N39.0 Urinary tract infection, site not specified | CPT/HCPCS: 87177; 87209; 87493 ==

== ENCOUNTER → 2023-10-26 | Outpatient (CLI) | payer MEDICARE, MEDICAID, SELFPAY | END | disposition home or self-care (01) | LOC: LABSPEC 12:48 | PROVIDERS: PCP Family Medicine; Referring Provider Nurse Practitioner Family; Visit Provider Nurse Practitioner Family | DX: N39.0 Urinary tract infection, site not specified (principal) | CPT/HCPCS: 87086; 87088; 87186 ==

== ENCOUNTER → 2023-11-11 | Outpatient (CLI) | payer MEDICARE, MEDICAID, SELFPAY | END | disposition home or self-care (01) | LOC: LABSPEC 13:01 | PROVIDERS: PCP Family Medicine; Referring Provider Family Medicine; Visit Provider Family Medicine | DX: N39.0 Urinary tract infection, site not specified (principal) | CPT/HCPCS: 87086 ==

== ENCOUNTER → 2024-02-07 | Outpatient (CLI) | payer MEDICARE, MEDICAID, SELFPAY ==
[2024-02-07 17:59] LABS: Absolute Lymphocyte Count 1.63 X10^3/uL (0.83-4.51); Absolute Neutrophil Count 3.7 X10^3/uL (2.0-7.7); Basophil# 0.03 X10^3/uL; Basophil% 0.5 % (0-1); Eosinophil# 0.17 X10^3/uL; Eosinophils% 2.7 % (0-5); Hemoglobin 11.3 g/dL (12.0-15.0); Lymphocyte # 1.63 X10^3/ul (0.83-4.51); Lymphocyte % 25.8 % (19-41); Mean Corp Hgb Conc 30.5 g/dL (32-36); Mean Corpuscular Hgb 26.5 pg (27.0-32.0); Mean Corpuscular Volume 86.7 fL (81-99); Mean Platelet Vol. 10.1 fl (6.2-12.0); Monocyte% 12.6 % (0-10); NRBC Flagged by Analyzer 0 % (0-5); Neutrophil # 3.68 X10^3/uL (2.7-7.7); Neutrophil % 58.1 % (47-70); Platelet Count 244 K/mm3 (150-450); RBC Distribution Width CV 13.2 % (11.6-14.6); RBC Distribution Width SD 41.2 fl (35.1-43.9); Red Blood Count 4.27 M/mm3 (4.2-5.4); White Blood Count 6.3 K/mm3 (4.4-11.0)
[2024-02-07 18:31] LABS: Vitamin D,25 Hydroxy 45.4 ng/mL
[2024-02-07 18:39] LABS: ALB/GLOB Ratio 0.9 RATIO (0.9-2.4); AST(SGOT) 19 U/L (15-37); Alanine Aminotransfer ALT/SGPT 26 U/L (13-56); Albumin, Serum 3.4 g/dL (3.2-5.0); Alkaline Phosphatase 76 U/L (45-117); Anion Gap 6 (5-15); BUN 17 mg/dL (7-18); BUN/Creat Ratio 22.5 RATIO (10-20); Calcium,Total 9.4 mg/dL (8.5-10.1); Chloride 110 mmol/L (98-107); Creatinine, Serum 0.76 mg/dL (0.55-1.02); EST Glomerular Filtration Rate 79 mL/min (>60); Est Glom Filt Rate - Afr Amer 95 mL/min (>60); Ferritin 107 ng/mL (8-252); Globulin 3.7 g/dL (2.2-4.2); Glucose 100 mg/dL (74-106); Iron 48 ug/dL (50-170); Iron Binding Capacity,Total 273 ug/dL (250-450); PERCENT IRON SATURATION 17.6 % (15.0-55.0); Potassium 3.9 mmol/L (3.5-5.1); Protein, Total 7.1 g/dL (6.4-8.2); Sodium Level 142 mmol/L (136-145); Thyroid Stim Hormone (TSH) 0.207 uIU/mL (0.358-3.740)
== END | disposition home or self-care (01) ==
LOC: MFPLAB 15:26
PROVIDERS: PCP Family Medicine; Visit Provider Family Medicine
DX: E11.9 Type 2 diabetes mellitus without complications (principal); D64.9 Anemia, unspecified; E55.9 Vitamin D deficiency, unspecified; I10 Essential (primary) hypertension
CPT/HCPCS: 36415; 80053; 82306; 82728; 83036; 83540; 83550; 84443; 85025

== ENCOUNTER → 2024-03-02 | Outpatient (CLI) | payer MEDICARE, MEDICAID, SELFPAY ==
--- NOTE | 2024-03-02 11:54 | BI_ITS ---
MAMMOGRAPHY - BILATERAL SCREENING 3-D TOMOSYNTHESIS REASON FOR EXAM: Female, 79 years old. SCREENING PERTINENT HISTORY: No significant family history. TECHNIQUE: 2-D mammograms and 3-D Tomosynthesis of the breast (s) were performed. CAD was performed. COMPARISON: 02/08/2023 FINDINGS: The breast composition is composed of scattered fibroglandular density. Scattered benign calcifications are seen. No dense spiculated masses or suspicious microcalcifications are identified. No architectural distortion is identified. There is no skin thickening or retraction. There has been no significant change since the prior study. No change in bilateral benign rodlike calcifications. BI/SCRN MAMM (CAD)W/JAVIER BILAT IMPRESSION: No mammographic signs of malignancy. Routine yearly mammograms recommended. ASSESSMENT CATEGORY: BIRADS Category 1: Negative. A letter regarding these results will be sent to the patient by the facility within 30 days. FOLLOW UP RECOMMENDATION: Yearly follow up mammogram recommended. (A) Approximately 10% of breast cancers are not detected by mammography. A normal mammogram should not delay biopsy of a clinically suspicious abnormality. Electronically Signed: Sd Cade MD at 13:14 EDT ,
== END | disposition home or self-care (01) ==
LOC: OPBI 11:52
PROVIDERS: PCP Family Medicine; Referring Provider Family Medicine; Visit Provider Family Medicine
DX: Z12.31 Encounter for screening mammogram for malignant neoplasm of breast (principal)
CPT/HCPCS: 77063; 77067

== ENCOUNTER → 2024-06-19 | Outpatient (CLI) | payer MEDICARE, MEDICAID, SELFPAY ==
--- NOTE | 2024-06-19 14:42 | RAD_ITS ---
EXAM: XR Right Knee Complete, 4 or More Views CLINICAL INDICATION: TECHNIQUE: Four or more views of the right knee. COMPARISON: No relevant prior studies available. FINDINGS: BONES/JOINTS: Moderate tricompartmental degenerative changes of the knee joint. No acute fracture. No dislocation. SOFT TISSUES: Soft tissue swelling. RAD/Knee 4 or More Views IMPRESSION: Degenerative changes as above. Reading Location: [facility]
[2024-06-19 18:27] LABS: Ferritin 62 ng/mL (8-252); Iron 61 ug/dL (50-170); Iron Binding Capacity,Total 290 ug/dL (250-450)
== END | disposition home or self-care (01) ==
LOC: MTLAB 14:36
PROVIDERS: PCP Family Medicine; Referring Provider Family Medicine; Visit Provider Family Medicine
DX: E61.1 Iron deficiency (principal); M25.561 Pain in right knee
CPT/HCPCS: 36415; 73564; 82728; 83540; 83550

== ENCOUNTER → 2024-08-03 | Outpatient (CLI) | payer MEDICARE, MEDICAID, SELFPAY ==
[2024-08-03 10:58] LABS: Absolute Lymphocyte Count 1.33 X10^3/uL (0.83-4.51); Absolute Neutrophil Count 3.4 X10^3/uL (2.0-7.7); Basophil# 0.05 X10^3/uL; Basophil% 0.9 % (0-1); Eosinophil# 0.26 X10^3/uL; Eosinophils% 4.5 % (0-5); Hematocrit 40.6 % (37-47); Hemoglobin 12.9 g/dL (12.0-15.0); Lymphocyte # 1.33 X10^3/ul (0.83-4.51); Mean Corp Hgb Conc 31.8 g/dL (32-36); Mean Corpuscular Hgb 27.7 pg (27.0-32.0); Mean Corpuscular Volume 87.3 fL (81-99); Mean Platelet Vol. 10.8 fl (6.2-12.0); Monocyte# 0.71 X10^3/uL; Monocyte% 12.3 % (0-10); NRBC Flagged by Analyzer 0 % (0-5); Neutrophil # 3.42 X10^3/uL (2.7-7.7); Platelet Count 266 K/mm3 (150-450); RBC Distribution Width CV 13.5 % (11.6-14.6); RBC Distribution Width SD 42.4 fl (35.1-43.9); Red Blood Count 4.65 M/mm3 (4.2-5.4); White Blood Count 5.8 K/mm3 (4.4-11.0)
[2024-08-03 11:22] LABS: Erythrocyte Sedimentation Rate 5 mm/hr (0-30)
[2024-08-03 11:57] LABS: CRP < 3.00 mg/L (0.0-3.0)
== END | disposition home or self-care (01) ==
LOC: MTLAB 08:39
PROVIDERS: PCP Family Medicine; Referring Provider Ophthalmology; Visit Provider Ophthalmology
DX: R51.9 Headache, unspecified (principal)
CPT/HCPCS: 36415; 85025; 85652; 86140

== ENCOUNTER → 2024-09-12 | Outpatient (CLI) | payer MEDICARE, MEDICAID, SELFPAY ==
--- NOTE | 2024-09-12 15:34 | RAD_ITS ---
PROCEDURE: LUMBAR SPINE 2 OR 3 VIEWS 09/12/2024 REASON FOR EXAM: LOW BACK PAIN, HIP/LEG PAIN TECHNIQUE: 3 view(s) of the lumbar spine FINDINGS: Vertebrae: No acute fracture. Discs: Mild multilevel disc space narrowing. Alignment: Moderate dextroscoliosis centered at L2. No subluxation. Other: Facet hypertrophy. RAD/Lumbar Spine 2 or 3 Views IMPRESSION: Moderate dextroscoliosis with degenerative disc disease. Reading Location: [id number]
== END | disposition home or self-care (01) ==
LOC: MTRAD 15:30
PROVIDERS: PCP Family Medicine
DX: R29.898 Other symptoms and signs involving the musculoskeletal system (principal)
CPT/HCPCS: 72100

== ENCOUNTER → 2024-10-18 | Outpatient (CLI) | payer MEDICARE, MEDICAID, SELFPAY ==
--- NOTE | 2024-10-18 14:20 | NEURO ---
NCS and/or EMG Patient Report Ordering Doctor: Hipolito Minor DATE OF SERVICE: 10/18/24 Lilia presents with complaints of aching pain and weakness in the right leg. Electrodiagnostic findings: Peroneal motor nerve demonstrates normal distal latency with reduced amplitude and normal conduction velocity. No evidence of conduction block across the fibular head. Right tibial motor response within normal limits. Borderline prolonged right tibial peroneal F?waves. Prolonged H?reflex bilaterally. Sensory responses were not obtainable. Needle EMG testing was performed the right lower limb. All muscles tested, including lumbar paraspinals, showed no evidence of denervation with normal motor unit action potentials. Electrodiagnostic pression: This is an abnormal study 1 Electrodiagnostic findings are suggestive of right-sided peroneal neuropathy, without evidence of conduction block at the fibular head. 2. No electrodiagnostic evidence is noted for lumbosacral radiculopathy. 3. Would recommend correlation with alternate lower limb to better evaluate for peripheral polyneuropathy. Multi Select Codes Neurology Neurology Interp Codes: 98303-89 Musc test done w/n test comp (interp) and 36729-16 Nrv cndj tst 5-6 studies (interp)
== END | disposition home or self-care (01) ==
PROVIDERS: PCP Family Medicine
DX: R29.898 Other symptoms and signs involving the musculoskeletal system (principal)
CPT/HCPCS: 95886; 95909

== ENCOUNTER → 2024-11-14 | Outpatient (CLI) | payer MEDICARE, MEDICAID, SELFPAY | END | disposition home or self-care (01) | LOC: MTLAB 08:27 | PROVIDERS: PCP Family Medicine | DX: R19.7 Diarrhea, unspecified (principal) ==

== ENCOUNTER → 2024-12-12 | Outpatient (CLI) | payer MEDICARE, MEDICAID, SELFPAY ==
[2024-12-12 14:31] LABS: Anion Gap 12 (5-15); BUN 20 mg/dL (4-19); BUN/Creat Ratio 24.6 RATIO (10-20); Calcium,Total 9.7 mg/dL (7.6-11.0); Carbon Dioxide 22.5 mmol/L (21.0-32.0); Chloride 106 mmol/L (98-108); Glucose 97 mg/dL (70-99); Potassium 4.1 mmol/L (3.3-5.1)
== END | disposition home or self-care (01) ==
LOC: MFPLAB 09:42
PROVIDERS: PCP Family Medicine; Referring Provider Family Medicine; Visit Provider Family Medicine
DX: E11.9 Type 2 diabetes mellitus without complications (principal)
CPT/HCPCS: 36415; 80048; 83036

== ENCOUNTER → 2024-12-14 | Outpatient (CLI) | payer MEDICARE, MEDICAID, SELFPAY ==
[2024-12-14 11:21] LABS: Microalbumin,Random Urine < 12.0 mg/L (<20 mg/L)
== END | disposition home or self-care (01) ==
LOC: MTLAB 08:53
PROVIDERS: PCP Family Medicine; Referring Provider Family Medicine; Visit Provider Family Medicine
DX: E11.9 Type 2 diabetes mellitus without complications (principal)
CPT/HCPCS: 82043

== ENCOUNTER → 2025-01-03 | Outpatient (CLI) | payer MEDICARE, MEDICAID, SELFPAY ==
--- NOTE | 2025-01-03 14:34 | NEURO ---
NCS and/or EMG Patient Report Ordering Doctor: Zahra Warner DATE OF SERVICE: 01/03/25 Lilia presents with intermittent numbness in the legs, more prominent on the right side. She presents for testing of the left lower limb and previously had a right lower limb testing performed. Electrodiagnostic findings: Left peroneal motor nerve demonstrates normal distal latency with reduced amplitude. There is a drop in conduction velocity across the fibular head. Left tibial motor response response demonstrates normal distal latency with reduced amplitude and normal conduction velocity. Normal left tibial and left peroneal F?wave. Absent left sural and superficial peroneal responses. Needle EMG testing was performed in the left lower limb. Complex repetitive discharges were noted in the left tibialis anterior. Electrodiagnostic impression: This is an abnormal study in the left lower limb. 1. Electrodiagnostic findings are suggestive of peripheral polyneuropathy with evidence of motor and sensory nerve involvement. There is evidence of axonal loss and demyelination. Data from today's exam was looked at in conjuction with the data from the right lower limb study of October 18, 2024. Multi Select Codes Neurology Neurology Interp Codes: 93640-81 Musc test done w/n test comp (interp) and 72453-98 Nrv cndj tst 5-6 studies (interp)
== END | disposition home or self-care (01) ==
PROVIDERS: PCP Family Medicine; Referring Provider Family Medicine; Visit Provider Family Medicine
DX: R29.898 Other symptoms and signs involving the musculoskeletal system (principal)
CPT/HCPCS: 95886; 95909

== ENCOUNTER 2025-02-07 08:30 | Outpatient (RCR) | payer MEDICARE, MEDICAID, SELFPAY ==
--- NOTE | 2024-11-14 15:16 | HP.PTEVAL_ITS ---
Patient's Visit Information Visit Information Visit Information: JOSELUIS HUI is a 79 year old F referred to Physical Therapy by Zahra Warner MD with a diagnosis of weakness. Date of Evaluation: 11/14/24 Physical Therapist: LEONARD ButtsT, OCS, CSCS Visit Plan Frequency: 2x /Week Duration: 4-6 Weeks Plan: 2x/week for 4-6 weeks...balance safety reviewed day one and encouraged to atteend daily ex at [facility] and walk 15 min wiht rollator every day.) 1. teach posture bands, core strength mat, LE strength functional and work to I home program for exit strategy. 2. work on gait speed Subjective Subjective: I feel weak. neuropathy in R LE. Fell a month ago but did not get hurt. Tripped when using cane. Falling is unusual. has felt weak for a long time but addressing now b/c doctor requested. Sleep is Ok. Pain sometimes but not bad. Neuropathy in R LE but not sure why, started 2 months and EMG showed neuropathy. 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 Getting ready to move as she lives at [facility] but will move to a place with walk in shower and no steps but still at [facility]. No regular exercises except walking aas lives at [facility] also and walks to his place daily. 15 min using rollator. Hobbies sewing and reading. Objective Objective: Uses cane L UE slow and poor weight shift but mod I. Trasnfers without UE chair I. steps with railing reciprocally with VC up and down but obviously weak with knees collapsing in. core strength 3+ abs and ext, hips 3+ rotations and abd and ext B. knees 4-, ankles 4- Sensation WNl to gross light touch LE. reflexes 2/3 patella and achilles. Balance/Special Test Scores Functional Gait Assessment Score: 22 % Disability: 26.6700 Lower Extremity Functional Score: 28 TUG Test Time Seconds: 16 30 Second Chair Rise Test Seconds: 11 Goals Goal 1:: I appropriate HEP for posture, core, LE hips to minimize future problems. Goal Time Frame: 4-6 Weeks Goal 2:: FGA to limit fall risk Goal Time Frame: 4-6 Weeks Goal 3:: 13 on 30 SSTS adn < 14 on TUG to show improved funciton. Goal Time Frame: 4-6 Weeks Rehabilitation Potential Physical Therapy Diagnosis: weakness effecting safety and lifestyle, pt too sedentary. Rehabilitation Potential: Good Anticipated Interventions Patient/Client Instruction: Educate patient on: Condition and Plan of Care For the Purpose of:: To improve muscle performance and motor function, To increase tolerance to activity/condition/position and To improve gait and locomotor functions Therapeutic Exercise to Include: Strength training, Balance training and Active ROM For the Purpose of:: To improve muscle performance and motor function, To increase tolerance to activity/condition/position, To improve ability of physical actions for home/community/work/leisure, To improve gait and locomotor functions and To improve safety Text: Thank you for the opportunity to evaluate your patient. For Medicare and Medicare HMO plans, please review the plan of care and approve it. It will need to be FAXED BACK to us at [phone] for Medicare purposes. For Medicare only, by signing this I certify the plan of care. Please let me know if there are questions or concerns regarding this plan of care. Physician Signatu re: Date:
--- NOTE | 2025-02-07 08:59 | HP.PTDCSUM_ITS ---
Discharge Summary D/C summary: It has been my pleasure to treat JOSELUIS HUI referred by Zahra Warner MD, with the diagnosis of weakness for a total of 8 visit(s). Discharge Date: 02/07/25 Please see the following information for a summary of their discharge status. Subjective Subjective: Did grat until she fell one time missing a rolling chair that weent out from under her. Using cane instead of rollator b/c Dr. Warner told her to. Used cane in grocery store and went well. Got up off the floor on own. No injuries other than bruising L leg and passed a stroke test in the doctor office. Passed. Otherwisee doing very well and all activities at home. doing what she wants, sleeping well. Getting exercises in often but not like she should, poor motivation. Overall Improvement % Improvement: 92 Objective Objective/Function: TUG, FGA and 30 SSTS are same as last for the most part. Motivation to ex is only thing holding her back . She feels like she can continue via HEP andx will schedule it into her day. Educated to get rid of rolling stool which she will do. Goals Goal 1:: I appropriate HEP for posture, core, LE hips to minimize future problems. Goal Progress: Goal Met Goal 2:: FGA to limit fall risk Goal Progress: Progressing Goal 3:: 13 on 30 SSTS adn < 14 on TUG to show improved funciton. Goal Progress: Progressing Plan Plan: d/c to HEP D/C Information d/c sentence: If there are questions or concerns regarding this patient's physical therapy, pl ease feel free to call me at [phone]. Thank you for the referral of this patient. Sincerely, Bunny Mendenhall, DPT, OCS, CSCS Balance/Gait/Functional tests Balance/Special Test Scores Functional Gait Assessment Score: 24 % Disability: 20.0000 Lower Extremity Functional Score: 44 TUG Test Time Seconds: 14 Tug Test: <20 sec.=mostly independent 30 Second Chair Rise Test Seconds: 12 Improvement % Improvement: 92
== END 2025-02-07 19:00 | disposition home or self-care (01) ==
LOC: PT 08:30
PROVIDERS: PCP Family Medicine; Referring Provider Family Medicine; Visit Provider Family Medicine
DX: R26.89 Other abnormalities of gait and mobility (principal); R53.1 Weakness
CPT/HCPCS: 97110; 97161; 97164; 97530